=== PATIENT | male | born 1945 | race Caucasian/White ===

== ENCOUNTER 2017-10-22 00:05 | Inpatient (IN) | payer OTHER ==
--- OUTSIDE RECORDS SUMMARY | 2017-10-22 00:08 | XMS REPORT | Clinical Summary ---
:1945 Author Organization [facility] Address [address] [place] [address] Care Team Providers Name Role Phone Asked, No Pcp Primary Care Provider Unavailable Allergies No Known Allergies Current Medications Prescription Sig. Disp. Refills Start Date End Date Status aspirin (ECOTRIN) 81 MG Take 81 mg by mouth Active enteric coated tablet daily. budesonide EC (ENTOCORT Take 6 mg by mouth Active EC) 3 mg 24 hr capsule every morning. cyanocobalamin 1000 MCG Take 1,000 mcg by Active tablet mouth daily. ferrous gluconate Take 324 mg by mouth Active (FERGON) 324 MG tablet 2 (two) times a day. finasteride (PROSCAR) 5 Take 5 mg by mouth Active mg tablet daily. gabapentin (NEURONTIN) Take 100 mg by mouth Active 100 MG capsule 3 (three) times a day. insulin detemir Inject 50 Units under Active (LEVEMIR) 100 unit/mL the skin daily with injection breakfast. ipratropium (ATROVENT) Take 500 mcg by Active 0.02 % nebulizer nebulization 4 (four) solution times a day. isosorbide mononitrate Take 60 mg by mouth Active (IMDUR) 60 MG 24 hr daily. tablet losartan (COZAAR) 100 Take 100 mg by mouth Active MG tablet daily. metoprolol succinate XL Take 50 mg by mouth Active (TOPROL-XL) 50 MG 24 hr daily. tablet pantoprazole (PROTONIX) Take 40 mg by mouth Active 40 MG EC tablet daily. potassium chloride Take 40 mEq by mouth Active (KLOR-CON) 20 mEq 2 (two) times a day. packet sertraline (ZOLOFT) 100 Take 150 mg by mouth Active MG tablet daily. simvastatin (ZOCOR) 40 Take 40 mg by mouth Active MG tablet nightly. terazosin (HYTRIN) 1 MG Take 1 mg by mouth Active capsule nightly. Active Problems Problem Noted Date Cardiac arrhythmia 05/24/2016 Family History Medical History Relation Name Comments Diabetes Father Hypertension Father Relation Name Status Comments Father Social History Tobacco Use Types Packs/Day Years Used Date Former Smoker Alcohol Use Drinks/Week oz/Week Comments No Sex Assigned at Date Recorded Not on file Last Filed Vital Signs Not on file Plan of Treatment Not on file Results Not on fileafter 10/21/2016 Insurance Payer Benefit Plan / Group Subscriber ID Type Phone Address [facility] xxxxxxxxx O Home: [address] [place], [place] [phone] [address]
[2017-10-22 01:16] LABS: Absolute Lymphocytes (CBC) 0.7 K/uL (0.7-4.9); Absolute Monocytes 0.4 K/uL (0.1-1.3); Absolute Neutrophil 8.3 K/uL (1.8-8.0); Basophils % 0.4 % (0-1.3); Hematocrit 36.1 % (39.6-49.0); Lymphocytes % 7.3 % (15.3-44.8); MCH 30.7 pg (27.0-35.0); MCV 91.4 fL (80-100); MPV 8.6 fL (7.6-11.3); Monocytes % 4.2 % (3.3-12.3); RBC Red Blood Cell Count 3.95 M/uL (4.33-5.43)
[2017-10-22 01:30] LABS: Blood Morphology Comment NOT SEEN (NOT SEEN); Platelet Estimate ADEQ; Urine White Blood Cell Casts OK
[2017-10-22 01:33] LABS: Bicarbonate 28 mEq/L (21-31); Potassium 4.9 mEq/L (3.6-5.0); Sodium Level 133 mEq/L (135-145)
[2017-10-22 01:34] LABS: Protime INR 0.98
[2017-10-22 01:37] LABS: Glucose Level 448 mg/dL (65-120)
[2017-10-22 01:39] LABS: ALT/SGPT 18 IU/L (10-60); AST/SGOT 18 IU/L (10-42); Albumin 3.4 g/dL (3.2-5.5); Alkaline Phosphatase 110 IU/L (42-121); BUN Blood Urea Nitrogen 38 mg/dL (6-20); Bilirubin Direct < 0.1 mg/dL (0-0.2); Bilirubin Total 0.3 mg/dL (0.3-1.2); Creatine Phosphokinase 44 IU/L (22-269); Protein, Total 6.7 g/dL (6.0-8.3)
[2017-10-22] MEDS ORDERED: Magnesium Sulfate 2gm IVPB 2 G/50 ML BAG IV ONE (02:08)
[2017-10-22] MEDS ORDERED: NA CHLORIDE 0.9% 500 ML ONE (02:08)
[2017-10-22] MEDS ORDERED: ASPIRIN 81 MG CHEWABLE TABLET ONE (02:08)
[2017-10-22] MEDS ORDERED: LEVALBUTEROL 1.25 MG/3 ML NEB ONE (02:08)
[2017-10-22 05:01] LABS: CKMB Creatine Kinase MB 2.8 ng/ml (0.3-4.0)
--- NOTE | 2017-10-22 05:11 | EKG ---
Test Date: 2017-10-22 Test Time: 00:30:39 Psychiatric Assistant: PRAFUL MEASUREMENT RESULTS: Intervals: Rate: 70 AL: 166 QRSD: 100 QT: 432 QTc: 466 [place]: P: -11 AL: 166 QRS: 42 T: 53 INTERPRETIVE STATEMENTS: Normal sinus rhythm Normal ECG Compared to ECG 10/03/2017 06:59:55 No significant changes Electronically Signed On 10-22-17 05:10:39 CDT by Bertram Welch
--- NOTE | 2017-10-22 05:12 | ER ---
Nurse's Notes [facility] Name: Jethro Burden Age: 72 yrs Sex: Male : 1945 Arrival Date: 10/22/2017 Time: 00:09 Bed 15 Private MD: Diagnosis: Chest pain Presentation: 10/22 00:00 Presenting complaint: EMS states: that pt has shortness of breath and chest pressure fc that started at 2200 last night. He has had no Lasix x 10 days. Denies any nausea or vomiting. 00:11 Transition of care: patient was not received from another setting of care. Onset of fc symptoms was October 21, 2017. Care prior to arrival: Medication(s) given: Albuterol Neb x 1, Atrovent Neb x 1, Glucose check: 471. 00:11 Method Of Arrival: EMS: [facility] fc 00:11 Acuity: TAN 3 fc Historical: - Allergies: 00:15 No Known Allergies; fc - PMHx: 00:15 Atrial Fib; COPD; Crohn's; Diabetes - IDDM; Depression; Hyperlipidemia; prostate fc problems; Hypertension; CHF; - PSHx: 00:15 L toe amputation; Hernia repair; cardiac stents x3; Bowel resection; fc - Immunization history:: Adult Immunizations up to date. - Social history:: Smoking status: Patient/guardian denies using tobacco, the patient reports quitting approximately 14 years ago. Screenin:00 Abuse screen: Denies threats or abuse. Nutritional screening: No deficits noted. fc Tuberculosis screening: No symptoms or risk factors identified. Fall Risk Fall in past 12 months (25 points). Secondary diagnosis (15 points) impaired mobility, No IV (0 pts). Ambulatory Aid- Crutches/Cane/Walker (15 pts). Gait- Weak (10 pts.). Mental Status- Overestimates/Forgets Limitations (15 pts.). Total Strong Fall Scale indicates High Risk Score (45 or more points). Fall prevention measures have been instituted. Side Rails Up X 2 Placed Close to Nursing Station Frequent Obs/Assessments Occuring As available patient and family educated on Fall Prevention Program and Strategies. Assessment: 00:15 General: Appears in no apparent distress. comfortable, Behavior is calm, cooperative, aa1 appropriate for age. Pain: Complains of pain in back and chest Quality of pain is described as pressure, Is continuous. Neuro: Level of Consciousness is awake, alert, obeys commands, Oriented to person, place, time, situation, Moves all extremities. Full function Speech is normal. Cardiovascular: Reports chest pain, shortness of breath, Denies diaphoresis, nausea, palpitations, vomiting, Heart tones S1 S2 present Capillary refill < 3 seconds Clubbing of nail beds is absent JVD is absent Patient's skin is warm and dry. Rhythm is regular Chest pain is described as vague, quality is pressure, is located in anterior chest wall radiates back. Respiratory: Reports shortness of breath at rest Airway is patent Respiratory effort is even, unlabored, Respiratory pattern is regular, symmetrical, Breath sounds with crackles bilaterally. the patient has mild shortness of breath. GI: No signs and/or symptoms were reported involving the gastrointestinal system. : No signs and/or symptoms were reported regarding the genitourinary system. EENT: No signs and/or symptoms were reported regarding the EENT system. Derm: Skin is intact, is healthy with good turgor, Skin is pink, warm \T\ dry. Musculoskeletal: Circulation, motion, and sensation intact. Capillary refill < 3 seconds. 01:00 Reassessment: Patient appears in no apparent distress at this time. Patient and/or aa1 family updated on plan of care and expected duration. Pain level reassessed. Patient is alert, oriented x 3, equal unlabored respirations, skin warm/dry/pink. Awaiting lab results. 02:00 Reassessment: Patient appears in no apparent distress at this time. Patient and/or aa1 family updated on plan of care and expected duration. Pain level reassessed. Patient is alert, oriented x 3, equal unlabored respirations, skin warm/dry/pink. Awaiting admission orders. 03:00 Reassessment: Patient appears in no apparent distress at this time. Patient and/or aa1 family updated on plan of care and expected duration. Pain level reassessed. Patient is alert, oriented x 3, equal unlabored respirations, skin warm/dry/pink. Awaiting admission orders. 04:00 Reassessment: Patient appears in no apparent distress at this time. Patient and/or aa1 family updated on plan of care and expected duration. Pain level reassessed. Patient is alert, oriented x 3, equal unlabored respirations, skin warm/dry/pink. Awaiting bed assignment. 05:00 Reassessment: Patient appears in no apparent distress at this time. Patient and/or aa1 family updated on plan of care and expected duration. Pain level reassessed. Patient is alert, oriented x 3, equal unlabored respirations, skin warm/dry/pink. Awaiting bed assignment. 05:30 Reassessment: Bed assignment received but pt cannot go up until after shift change. aa1 05:58 Reassessment: Patient appears in no apparent distress at this time. Patient is alert, aa1 oriented x 3, equal unlabored respirations, skin warm/dry/pink. Per housekeeping/laundry, pt can go upstairs. Report given to Martha. Vital Signs: 00:00 BP 152 / 66; Pulse 76; Resp 22; Temp 97.2(TE); Pulse Ox 99% on R/A; Weight 105.23 kg fc (R); Height 6 ft. 0 in. (182.88 cm) (R); Pain 8/10; 01:10 BP 147 / 64; Pulse 71; Resp 20; Pulse Ox 98% on 2 lpm NC; aa1 02:00 BP 154 / 64; Pulse 68; Resp 20; Pulse Ox 99% on 2 lpm NC; Pain 0/10; aa1 03:00 BP 150 / 69; Pulse 73; Resp 20; Pulse Ox 98% on 2 lpm NC; aa1 04:00 BP 131 / 69; Pulse 72; Resp 18; Pulse Ox 96% on 2 lpm NC; aa1 05:00 BP 147 / 57; Pulse 76; Resp 20; Pulse Ox 97% on 2 lpm NC; aa1 00:00 Body Mass Index 31.46 (105.23 kg, 182.88 cm) ED Course: 00:00 Arm band placed on right wrist. Patient placed in an exam room, on a stretcher. fc 00:00 Patient has correct armband on for positive identification. Placed in gown. Bed in low fc position. Call light in reach. Side rails up X2. shelter monitor on. Pulse ox on. NIBP on. 00:09 Patient arrived in ED. em1 00:14 Triage completed. fc 00:24 Donald Moreira MD is Attending Physician. wa 00:38 Oxygen administration via nasal cannula \T\ 2L/min. aa1 00:40 EKG done, by ED staff. cb2 00:45 Initial lab(s) drawn, by me, sent to lab. First set of blood cultures drawn by me. aa1 Inserted saline lock: 20 gauge in left forearm, using aseptic technique. Blood collected. 01:00 X-ray completed. Portable x-ray completed in exam room. Patient tolerated procedure jw2 well. 01:04 Second set of blood cultures drawn by me. aa1 01:09 Cynthia Brown RN is Primary Nurse. aa1 01:37 Notified ED physician of a critical lab result(s). glucose of 448. fc 01:54 Shweta Sheppard MD is Hospitalizing Provider. wa 02:00 No provider procedures requiring assistance completed. Patient admitted, IV remains in aa1 place. Administered Medications: 01:56 Drug: Xopenex 1.25 mg Route: Inhalation; aa1 01:56 Drug: Magnesium Sulfate 2 grams Route: IVPB; Infused Over: 2 hrs; Site: left forearm; aa1 04:00 Follow up: IV Status: Completed infusion aa1 01:56 Drug: Aspirin Chewable Tablet 324 mg Route: PO; aa1 03:00 Follow up: Response: No adverse reaction aa1 01:56 Drug: NS 0.9% 500 ml Route: IV; Rate: bolus; Site: left forearm; aa1 02:30 Follow up: IV Status: Completed infusion aa1 Outcome: 01:55 Decision to Hospitalize by Provider. wa 05:59 Admitted to Tele accompanied by nurse, via wheelchair, room 419, with oxygen, with aa1 chart, Report called to RYLEE Thomas 05:59 Condition: stable 05:59 Instructed on the need for admit, Demonstrated understanding of instructions. 05:59 Patient left the ED. aa1 Signatures: Cynthia Brown, RN RN aa1 Mary Jorge RN RN fc Martinez, Eric em1 Maryan Silveira jw2 Aly Artis cb2 Donald Moreira MD MD vt Corrections: (The following items were deleted from the chart) 00:14 00:11 Presenting complaint: EMS states: that pt has shortness of breath and chest fc pressure that started at 2200 last night. He has had no Lasix x 10 days. Denies any nausea or vomiting. fc
--- NOTE | 2017-10-22 05:13 | EDPHYS ---
Physician Documentation [facility] Name: Jethro Burden Age: 72 yrs Sex: Male : 1945 Arrival Date: 10/22/2017 Time: 00:09 Bed 15 Private MD: ED Physician Donald Moreira Historical: - Allergies: 10/22 00:15 No Known Allergies; fc - PMHx: 00:15 Atrial Fib; COPD; Crohn's; Diabetes - IDDM; Depression; Hyperlipidemia; prostate fc problems; Hypertension; CHF; - PSHx: 00:15 L toe amputation; Hernia repair; cardiac stents x3; Bowel resection; fc - Immunization history:: Adult Immunizations up to date. - Social history:: Smoking status: Patient/guardian denies using tobacco, the patient reports quitting approximately 14 years ago. Vital Signs: 00:00 BP 152 / 66; Pulse 76; Resp 22; Temp 97.2(TE); Pulse Ox 99% on R/A; Weight 105.23 kg fc (R); Height 6 ft. 0 in. (182.88 cm) (R); Pain 8/10; 01:10 BP 147 / 64; Pulse 71; Resp 20; Pulse Ox 98% on 2 lpm NC; aa1 02:00 BP 154 / 64; Pulse 68; Resp 20; Pulse Ox 99% on 2 lpm NC; Pain 0/10; aa1 03:00 BP 150 / 69; Pulse 73; Resp 20; Pulse Ox 98% on 2 lpm NC; aa1 04:00 BP 131 / 69; Pulse 72; Resp 18; Pulse Ox 96% on 2 lpm NC; aa1 05:00 BP 147 / 57; Pulse 76; Resp 20; Pulse Ox 97% on 2 lpm NC; aa1 00:00 Body Mass Index 31.46 (105.23 kg, 182.88 cm) MDM: 00:24 Patient medically screened. 10/22 00:33 Order name: Basic Metabolic Panel 10/22 00:33 Order name: BNP 10/22 00:33 Order name: CBC with Diff 10/22 00:33 Order name: CPK 10/22 00:33 Order name: LFT's 10/22 00:33 Order name: Magnesium 10/22 00:33 Order name: PT-INR 10/22 00:33 Order name: Troponin (emerg Dept Use Only) la 10/22 00:39 Order name: Amylase, Serum 10/22 00:39 Order name: Blood Culture Adult (2) 10/22 00:39 Order name: BMP la 10/22 00:39 Order name: Ckmb la 10/22 00:39 Order name: D-Dimer 10/22 00:39 Order name: Lipase 10/22 00:39 Order name: Ptt, Activated la 10/22 01:18 Order name: CBC with Automated Diff; Complete Time: 01:39 EDMS 10/22 01:30 Order name: CBC Smear Scan; Complete Time: 01:39 EDMS 10/22 05:01 Order name: Urine Dipstick--Ancillary (enter results) em1 10/22 05:11 Order name: Basic Metabolic Panel; Complete Time: 16:08 EDMS 10/22 05:11 Order name: Liver (Hepatic) Function; Complete Time: 16:08 EDMS 10/22 05:11 Order name: Creatine Phosphokinase; Complete Time: 16:08 EDTX 10/22 05:11 Order name: Magnesium; Complete Time: 16:08 EDMS 10/22 05:11 Order name: BNP B-Type Natriuretic Peptide; Complete Time: 16:08 EDMS 10/22 05:11 Order name: Troponin (Emerg Dept Use Only); Complete Time: 16:08 EDMS 10/22 05:11 Order name: CKMB Creatine Kinase MB; Complete Time: 16:08 EDMS 10/22 05:11 Order name: Amylase Level; Complete Time: 16:08 EDTX 10/22 05:11 Order name: Lipase; Complete Time: 16:08 EDTX 10/22 05:11 Order name: Protime (+INR); Complete Time: 16:08 EDMS 10/22 05:11 Order name: PTT, Activated Partial Thromb; Complete Time: 16:08 EDMS 10/22 05:11 Order name: D-Dimer; Complete Time: 16:08 EDTX 10/22 00:33 Order name: XRAY Chest (1 view) la 10/22 00:33 Order name: EKG; Complete Time: 00:34 la 10/22 00:33 Order name: Cardiac monitoring; Complete Time: 01:10 la 10/22 00:33 Order name: EKG - Nurse/Tech; Complete Time: 01: la 10/22 00:33 Order name: IV Saline Lock; Complete Time: : la 10/22 00:33 Order name: Labs collected and sent; Complete Time: : la 10/22 00:33 Order name: O2 Per Protocol; Complete Time: : la 10/22 00:33 Order name: O2 Sat Monitoring; Complete Time: : la 10/22 00:33 Order name: Urine Dipstick-Ancillary (obtain specimen); Complete Time: 05:00 la Administered Medications: 01:56 Drug: Xopenex 1.25 mg Route: Inhalation; aa1 01:56 Drug: Magnesium Sulfate 2 grams Route: IVPB; Infused Over: 2 hrs; Site: left forearm; aa1 04:00 Follow up: IV Status: Completed infusion aa1 01:56 Drug: Aspirin Chewable Tablet 324 mg Route: PO; aa1 03:00 Follow up: Response: No adverse reaction aa1 01:56 Drug: NS 0.9% 500 ml Route: IV; Rate: bolus; Site: left forearm; aa1 02:30 Follow up: IV Status: Completed infusion aa1 Disposition: 10/22/17 01:55 Hospitalization ordered by Shweta Sheppard for Inpatient Admission. Preliminary diagnosis is Chest pain. - Bed requested for Telemetry/MedSurg (Inpatient). - Status is Inpatient Admission. aa1 - Condition is Stable. - Problem is an acute exacerbation. - Symptoms have improved. UTI on Admission? No Addendum: 11/03/2017 16:10 Addendum: CC: chest pain. SOB. HPI: 72 yo M. CP that began 1 day prior to arrival. w a states assoc SOB with minimal exertion. describes pain as tightness. denies radiation of pain. denies nausea, vomiting, or diaphoresis. states takes lasix but has not had it for 1 mth. EMS gave a dose of albuterol and atrovent in rout to ED. pt w/ h/o COPD and CHF. PMHx: afib. COPD. Crohn's. DM. Depression. HTN. CHF. Elevated Chol. PsurgHx: Hernia repair. toe amputation. cardiac stent x3. Bowel resection. SHx: quit smoking 14 years ago. denies ETOH. denies recreational drug use. Allergies: NKDA. ROS: noted for chest pain and SOB. all other systems reviewed and negative. Exam: Const: noted in mild distress HEENT: normocephalic. atraumatic. throat clear. neck supple. CVS: NS1S2. no murmurs. CHEST: bilateral expiratory wheezes. coarse BS bilaterally. Abd: non-tender. no distension. Ext: no edema. no swelling. Neuro: CN II-XII. no lateralizing neuro deficits. Psych: pleasant. affect normal. DDx: COPD flare. Pna. r/o ACS. CHF. Afib. Plan: monitor. oxygen. nebs. ASA. MgSO4. Results: EKG: no acute STEMI. labs noted for elevated glucose. elevated BUN/Cr. Dx: Chest pain. Shortness of Breath. Hyperglycemia. Discussed with pt. accepted admit. orders written by me. Improved significantly prior to moving upstairs. Signatures: Dispatcher [employer] Cynthia Addison RN RN aa1 Mary Jorge RN RN [facility] HospitalDonald malloy MD MD la
[2017-10-22] MEDS ORDERED: ONDANSETRON 4 MG/2 ML VIAL IV PRN ×2 (07:10→07:52)
[2017-10-22] MEDS ORDERED: ACETAMINOPHEN 500 MG TAB PO PRN ×2 (07:10→07:53)
[2017-10-22] MEDS ORDERED: D50W 25 GM/50 ML SYRINGE IV PRN ×2 (07:52→17:07)
[2017-10-22] MEDS ORDERED: GLUCAGON 1 MG/VIAL IM PRN ×2 (07:52→17:07)
[2017-10-22 08:09] LABS: Urine Blood NEGATIVE (NEG); Urine Glucose 2+ (NEG); Urine Protein NEGATIVE (NEG)
--- NOTE | 2017-10-22 08:50 | RAD REPORT ---
EXAM DESCRIPTION: RAD - Chest Single View - 10/22/2017 1:01 am CLINICAL HISTORY: Chest pain, chest pressure COMPARISON: October 02 TECHNIQUE: AP portable chest image was obtained 0055 hours . FINDINGS: No peripheral mass, consolidation or failure findings. Left costophrenic angle blunting sandoval s not changed. Heart and vasculature are normal. No pneumothorax. No new or enlarging pleural fluid c ollection. No gross bony abnormality seen. No acute aortic findings suspected. IMPRESSION: No acute cardiopulmonary process. Chest findings are stable from October 02.
[2017-10-22] MEDS ORDERED: ASPIRIN 81 MG CHEWABLE TABLET PO SCH (09:00)
[2017-10-22] MEDS ORDERED: ATORVASTATIN 80 MG TAB PO SCH (09:00)
[2017-10-22] MEDS ORDERED: ENOXAPARIN 40 MG/0.4 ML SQ SCH (09:00)
[2017-10-22] MEDS ORDERED: APIXABAN 5 MG TABLET PO SCH (09:00)
[2017-10-22] MEDS: INSULIN -REGULAR HUMAN 50 UNIT/0.5 ML ML SQ SCH ×4 (09:01→20:46)
[2017-10-22] MEDS: ASPIRIN 81 MG CHEWABLE TABLET PO SCH (09:03)
[2017-10-22] MEDS: APIXABAN 5 MG TABLET PO SCH ×2 (09:03→20:43)
[2017-10-22] MEDS ORDERED: INSULIN -REGULAR HUMAN 50 UNIT/0.5 ML ML SQ SCH (11:30)
--- NOTE | 2017-10-22 12:40 | CON ---
History Of Present Illness: Mr. Burden is a gentleman, who has had a lot of problems, never had coron jeronimo heart disease. He has underlying diabetes and he takes a variety of medications for that. None of those medications are listed as of now in his outpatient medicines. He came to the [facility] se he lost consciousness. He had been sitting on a couch for a long time. He had a grandson who lashonda yed with an oxygen concentrator which he requires all the time. He had to get up and adjust it, was not clear if he had to bend over and then stand up whilst doing it or if he was able to sit while doi ng it but as he stood up after adjusting it and walked back to his couch he fell. He was apparently unconscious for just a matter of a second or 2. When he came to the emergency room, he had a blood p ressure of 152/66, pulse 76. Mr. Burden has severe obstructive lung disease. He has paroxysmal atrial fibrillation. I believe he has not been on an anticoagulant in spite of his atrial fibrillation. I believe he still takes Betap gutierrez, although we do not know the dose. We need to work very hard and get his outpatient medications re-established. I suspect even though he is hypertensive right now he has orthostatic hypotension. So, we will check orthostatic vital signs. The only important time is to do it when he is back on hi s usual outpatient medications. At this point, he is not. His EKG shows that everything looks birdie l. I suspect we are not dealing with any arrhythmia but we are dealing with orthostatic hypotension. SH/MODL Voice ID: [id number] Report ID: [id number]
[2017-10-22 13:08] LABS: Urine Appearance CLEAR; Urine Bilirubin NEGATIVE (NEG); Urine Blood NEGATIVE (NEG); Urine Color YELLOW; Urine Glucose 3+ (NEG); Urine Protein NEGATIVE (NEG); Urine Urobilinogen 0.2 mg/dL (0.2-1.0)
[2017-10-22] MEDS: ALBUTEROL 2.5 MG/3 ML NEB SOL NEB PRN (13:25)
[2017-10-22 13:29] LABS: Urine Microscopic Reflex ORDER UMIC
[2017-10-22 13:43] LABS: Urine Bacteria NONE SEEN /HPF (NONE SEEN); Urine Culture Reflex Order NOT NEEDED; Urine RBC <5 /HPF (NONE SEEN)
[2017-10-22] MEDS ORDERED: DIFLUPREDNATE OPHTHALMIC 5 ML BOT OPTH SCH (17:15)
[2017-10-22] MEDS ORDERED: GENTAMICIN 0.3% OPTH DROP 5ML OPTH SCH (17:15)
[2017-10-22] MEDS: INSULIN DETEMIR 100 UNIT/1 ML INSULIN SQ SCH (18:06)
[2017-10-22] MEDS: METOPROLOL XL 50 MG TAB PO SCH (18:07)
[2017-10-22] MEDS: FINASTERIDE 5 MG TAB PO SCH (18:08)
[2017-10-22] MEDS: SERTRALINE HCL 100 MG TAB PO SCH (18:08)
[2017-10-22] MEDS: GABAPENTIN 100 MG CAP PO SCH ×2 (18:08→22:46)
[2017-10-22] MEDS: FERROUS SULFATE 325 MG TAB PO SCH (20:42)
[2017-10-22] MEDS: SOTALOL HCL 80 MG TAB PO SCH (20:42)
[2017-10-22] MEDS: ATORVASTATIN 40 MG TAB PO SCH (20:44)
[2017-10-22] MEDS: NEPAFENAC RIGHT EYE SCH (20:55)
[2017-10-22] MEDS ORDERED: SOTALOL HCL 120 MG PO SCH (21:00)
[2017-10-22] MEDS ORDERED: FERROUS GLUCONATE 324 MG PO SCH (21:00)
[2017-10-22] MEDS ORDERED: ATORVASTATIN 40 MG TAB PO SCH (21:00)
[2017-10-23] MEDS: IPRATROPIUM BROM 0.5MG/2.5ML NEB PRN ×4 (01:27→19:24)
[2017-10-23] MEDS: ALBUTEROL 2.5 MG/3 ML NEB SOL NEB PRN ×4 (01:27→19:23)
[2017-10-23 04:42] LABS: Potassium 4.4 mEq/L (3.6-5.0)
[2017-10-23 04:43] LABS: Absolute Lymphocytes (CBC) 1.8 K/uL (0.7-4.9); Absolute Monocytes 0.8 K/uL (0.1-1.3); Absolute Neutrophil 6.1 K/uL (1.8-8.0); Basophils % 0.5 % (0-1.3); Eosinophils % 1.6 % (0-4.4); Hematocrit 36.1 % (39.6-49.0); Lymphocytes % 20.7 % (15.3-44.8); MCH 31.2 pg (27.0-35.0); MCV 90.2 fL (80-100); MPV 8.6 fL (7.6-11.3); Monocytes % 8.7 % (3.3-12.3)
[2017-10-23] MEDS: INSULIN -REGULAR HUMAN 50 UNIT/0.5 ML ML SQ SCH ×4 (07:30→21:27)
[2017-10-23] MEDS ORDERED: HOME MED 1 EA UNK (Losartan Potassium [Losartan Potassium] 100 MG) PO SCH (09:00)
[2017-10-23] MEDS: APIXABAN 5 MG TABLET PO SCH ×2 (09:30→21:27)
[2017-10-23] MEDS: LOSARTAN POTASSIUM 50 MG TABLET PO SCH (09:30)
[2017-10-23] MEDS: PANTOPRAZOLE 40MG TABLET PO SCH (09:30)
[2017-10-23] MEDS: SOTALOL HCL 80 MG TAB PO SCH ×2 (09:30→21:28)
[2017-10-23] MEDS: INSULIN DETEMIR 100 UNIT/1 ML INSULIN SQ SCH ×2 (09:30→17:27)
[2017-10-23] MEDS: FERROUS SULFATE 325 MG TAB PO SCH ×2 (09:31→21:28)
[2017-10-23] MEDS: SERTRALINE HCL 100 MG TAB PO SCH (09:31)
[2017-10-23] MEDS: ASPIRIN 81 MG CHEWABLE TABLET PO SCH (09:31)
[2017-10-23] MEDS: GABAPENTIN 100 MG CAP PO SCH ×3 (09:31→21:28)
[2017-10-23] MEDS: METOPROLOL XL 50 MG TAB PO SCH (09:31)
[2017-10-23] MEDS: FINASTERIDE 5 MG TAB PO SCH (09:32)
--- NOTE | 2017-10-23 18:16 | HP ---
Date of Admission: 10/22/2017 Chief Complaint: Dizziness, near syncope. History Of Present Illness: This patient while trying to get up, had severe dizziness and almost pas sed out. However, there was no history of true loss of consciousness, seizures or fall, or head inju ry. The patient was brought to the emergency room and after evaluation, patient is admitted to [facility], later was transferred to my service. Past Medical History: The patient has multiple medical problems that includes severe diabetes requir ing insulin, hyperlipidemia, hypertension, history of congestive heart failure, COPD, chronic atrial fibrillation, on Eliquis and Betapace and metoprolol. Past Surgical History: Positive for coronary angioplasty, bowel resection, hernia repair, and amputa tion of the toe. Family History: Diabetes present. Personal History: Nonsmoker home. Medicines: Please refer to the chart. Review of Systems: The patient denies any history of fever, chills, rigors. Physical Examination: General: Revealed a 72-year-old male, fully alert at the time of exam. HEENT: No evidence of head injury. Neck: Supple. JVD negative. Chest: Scattered wheezes. Heart: Irregularity noted. Abdomen: Soft. No palpable mass. Extremities: Mild pedal edema. Laboratory Data: White count normal. Troponin normal. Chest x-ray, no evidence of pneumonia. EKG, sinus rhythm. Assessment: 1.Dizziness and near syncope. 2.Chronic obstructive pulmonary disease. 3.Type 2 diabetes requiring insulin. 4.Chronic intermittent atrial fibrillation on Eliquis and Betapace and metoprolol. 5.Hyperlipidemia. 6.Depression. Plan: The patient currently is stable and he is not having any chest pain or acute symptoms. Once c leared by Cardiology Service, he will be discharged and follow up in the office. ZAIRA/IVORY Voice ID: [id number]
[2017-10-23] MEDS: NEPAFENAC RIGHT EYE SCH (21:00)
[2017-10-23] MEDS: ATORVASTATIN 40 MG TAB PO SCH (21:27)
[2017-10-24] MEDS: ALBUTEROL 2.5 MG/3 ML NEB SOL NEB PRN ×2 (02:12→07:20)
[2017-10-24] MEDS: IPRATROPIUM BROM 0.5MG/2.5ML NEB PRN ×2 (02:12→07:20)
[2017-10-24 05:23] VITALS: BMI 32.3
[2017-10-24] MEDS: INSULIN -REGULAR HUMAN 50 UNIT/0.5 ML ML SQ SCH (08:14)
[2017-10-24] MEDS: METOPROLOL XL 50 MG TAB PO SCH (08:15)
[2017-10-24] MEDS: INSULIN DETEMIR 100 UNIT/1 ML INSULIN SQ SCH (08:15)
[2017-10-24] MEDS: GABAPENTIN 100 MG CAP PO SCH (08:16)
[2017-10-24] MEDS: LOSARTAN POTASSIUM 50 MG TABLET PO SCH (08:16)
[2017-10-24] MEDS: SOTALOL HCL 80 MG TAB PO SCH (08:16)
[2017-10-24] MEDS: APIXABAN 5 MG TABLET PO SCH (08:16)
[2017-10-24] MEDS: ASPIRIN 81 MG CHEWABLE TABLET PO SCH (08:17)
[2017-10-24] MEDS: PANTOPRAZOLE 40MG TABLET PO SCH (08:17)
[2017-10-24] MEDS: SERTRALINE HCL 100 MG TAB PO SCH (08:17)
[2017-10-24] MEDS: FINASTERIDE 5 MG TAB PO SCH (08:17)
[2017-10-24] MEDS: FERROUS SULFATE 325 MG TAB PO SCH (08:25)
[2017-10-24 08:26] VITALS: BP 145/66
[2017-10-24 08:28] VITALS: TEMP 97.2
[2017-10-24 10:00] VITALS: O2SAT 93
--- NOTE | 2017-11-20 02:00 | DS ---
Date of Discharge: 10/24/2017 Final Diagnoses: 1.Dizziness and near syncope. 2.Chronic obstructive pulmonary disease. 3.Type 2 diabetes requiring insulin. 4.Chronic intermittent atrial fibrillation. 5.Chronic anticoagulation. 6.Hyperlipidemia. 7.Depression. Hospital Course: This patient was brought to the emergency room as he nearly passed out in the [facility] [employer] lot. He was brought to the emergency room. After evaluation, he was admitted. There was no hist ory of head injury. The patient had no evidence of seizures. The patient after admission was put on observation telemetry. The patient was seen by Cardiology Service. Dr. Welch did not feel that th e patient had any acute cardiovascular event or neurological event. At this point, the patient was t olerating diet and ambulating in the room. At this point, the patient was discharged home to have fo llow up in the office. Laboratory Data: Please refer to the chart. ZAIRA/IVORY Voice ID: [id number] Report ID: [id number]
== END 2017-10-24 10:12 | disposition home or self-care (01) | DRG 149 ==
LOC: ER 00:05 → ERHOLD 02:01 → 4TH 05:42
PROVIDERS: ADMIT Internal Medicine; ATTEND Internal Medicine
DX: R42 Dizziness and giddiness (principal); R55 Syncope and collapse; E78.5 Hyperlipidemia, unspecified; I48.2 Chronic atrial fibrillation; F32.9 Major depressive disorder, single episode, unspecified; J44.9 Chronic obstructive pulmonary disease, unspecified; E11.9 Type 2 diabetes mellitus without complications; I10 Essential (primary) hypertension; Z79.01 Long term (current) use of anticoagulants
CPT/HCPCS: 36415; 71045; 80048; 80076; 81003; 81015; 82150; 82550; 82553; 82962; 83690; 83735; 83880; 84484; 85025; 85379; 85610; 85730; 87040; 87070; 87077; 87186; 87205; 93005; 94640; 96365; 96366; 99285; J3475

== ENCOUNTER 2017-12-02 20:14 | Emergency (ER) | payer OTHER ==
--- OUTSIDE RECORDS SUMMARY | 2017-12-02 20:16 | XMS REPORT | Clinical Summary ---
:1945 Author Organization [facility] [facility] Address [address] [place] [address] Care Team Providers Name Role Phone Asked, [...] Not on file Results Not on fileafter 12/01/2016 Insurance Payer Benefit Plan / Group Subscriber ID Type Phone Address [facility] xxxxxxxxx O Home: [address] [place], [place] [phone] [address]
[2017-12-02] MEDS ORDERED: IPRATROPIUM BROM 0.5MG/2.5ML ONE (20:55)
[2017-12-02] MEDS ORDERED: ALBUTEROL 2.5 MG/3 ML NEB SOL ONE (20:55)
[2017-12-02] MEDS ORDERED: METHYLPREDNISOLONE 125 MG INJ ONE (21:10)
--- NOTE | 2017-12-02 21:34 | RAD REPORT ---
EXAM DESCRIPTION: [place] Single View12/02/2017 9:15 pm CLINICAL HISTORY: Shortness of breath COMPARISON: September 2017 FINDINGS: The lungs appear clear of acute infiltrate. An opacity within left lung base represents e picardial fat. The heart is normal size IMPRESSION: No acute abnormalities displayed
[2017-12-02 21:35] LABS: Absolute Monocytes 0.8 K/uL (0.1-1.3); Absolute Neutrophil 6.2 K/uL (1.8-8.0); Basophils % 0.9 % (0-1.3); Eosinophils % 5.2 % (0-4.4); Hematocrit 35.5 % (39.6-49.0); MCH 31.2 pg (27.0-35.0); MCV 91.1 fL (80-100); MPV 8.9 fL (7.6-11.3); Monocytes % 9.6 % (3.3-12.3)
[2017-12-02 21:40] LABS: Arterial Blood Carboxyhemoglob 1.2 % (0-1.5); Blood Gas Oxyhemoglobin 94.7 % (94-97); Blood O2 Saturation 97.2 % (92-98.5)
[2017-12-02 21:51] LABS: Potassium 4.1 mEq/L (3.6-5.0)
[2017-12-02 21:54] LABS: Protime INR 1.04
[2017-12-02 21:57] LABS: Albumin 3.3 g/dL (3.2-5.5); Bilirubin Direct 0.1 mg/dL (0-0.2); Bilirubin Total 0.5 mg/dL (0.3-1.2); Magnesium 1.6 mg/dL (1.8-2.5); Protein, Total 6.9 g/dL (6.0-8.3)
[2017-12-02 22:00] LABS: CKMB Creatine Kinase MB 1.8 ng/ml (0.3-4.0)
[2017-12-02] MEDS ORDERED: MORPHINE 4 MG/ML SYR ONE (23:49)
[2017-12-02] MEDS ORDERED: ONDANSETRON 4 MG/2 ML VIAL ONE (23:50)
[2017-12-02] MEDS ORDERED: Magnesium Sulfate 2gm IVPB 2 G/50 ML BAG IV ONE (23:50)
[2017-12-03 03:07] LABS: Urine Blood NEGATIVE (NEG); Urine Glucose 2+ (NEG); Urine Protein NEGATIVE (NEG); Urine Specific Gravity 1.015 (1.005-1.030)
--- NOTE | 2017-12-03 03:17 | ER ---
Nurse's Notes [facility] Name: Jethro Burden Age: 72 yrs Sex: Male : 1945 Arrival Date: 12/02/2017 Time: 20:19 Bed 5 Private MD: Cordell Herrera R Diagnosis: COPD exacerbation. Abdominal and back pain Presentation: 12/02 20:40 Presenting complaint: Patient states: SOB and bilateral flank pain started today. ak1 Transition of care: patient was not received from another setting of care. Onset of symptoms was December 02, 2017. Initial Sepsis Screen: Does the patient meet any 2 criteria? No. Patient's initial sepsis screen is negative. Does the patient have a suspected source of infection? No. Patient's initial sepsis screen is negative. Note pt uses 3L NC at home. Care prior to arrival: None. 20:40 Method Of Arrival: Wheelchair ak1 20:40 Acuity: TAN 3 ak1 Triage Assessment: 20:42 General: Appears in no apparent distress. Behavior is calm, cooperative. Pain: ak1 Complains of pain in back. EENT: No signs and/or symptoms were reported regarding the EENT system. Neuro: No deficits noted. Cardiovascular: No deficits noted. Respiratory: Reports shortness of breath at rest cough that is non-productive, Onset: The symptoms/episode began/occurred today, the patient has mild shortness of breath. GI: No signs and/or symptoms were reported involving the gastrointestinal system. : No signs and/or symptoms were reported regarding the genitourinary system. Derm: No signs and/or symptoms reported regarding the dermatologic system. Musculoskeletal: No signs and/or symptoms reported regarding the musculoskeletal system. Historical: - Allergies: 20:40 No Known Allergies; ak1 - Home Meds: 21:33 albuterol sulfate 2.5 mg /3 mL (0.083 %) Nebulizer nebu 3 mL q4h prn [Active]; apixaban fc oral 5 mg oral 1 tab 2 times per day [Active]; atorvastatin 80 mg oral tab .5 tab once daily [Active]; budesonide-formoterol inhalation inhalation 2 puffs 2 times per day [Active]; budesonide 3 mg oral CECX 3 caps once daily [Active]; cyanocobalamin (vitamin B-12) 100 mcg oral tab daily [Active]; docusate sodium 100 mg Oral cap 1 cap 2 times per day [Active]; ferrous gluconate 324 mg (36 mg iron) Oral tab twice a day [Active]; finasteride 5 mg oral tab 1 tab once daily [Active]; furosemide 40 mg Oral tab 3 tabs in am and 2 tabs in pm [Active]; gabapentin 100 mg oral cap 1 caps 3 times per day [Active]; insulin aspart subcutaneous subcutaneous 50 unit before meals [Active]; insulin detemir subcutaneous subcutaneous 70 units in am and 45 units in pm [Active]; ipratropium bromide 0.02 % inhalation soln 2.5 mL every 6 hours [Active]; isosorbide mononitrate 20 mg Oral tab 4 tab daily [Active]; losartan 100 mg oral tab 1 tab once daily [Active]; metoprolol tartrate 50 mg Oral tab 1 tab once daily [Active]; pantoprazole 40 mg oral TbEC 1 tab once daily [Active]; potassium chloride 10 mEq Oral cpER 2 caps once daily [Active]; sertraline 100 mg oral tab 1 tab once daily [Active]; sotalol 120 mg Oral tab 1 tab 2 times per day [Active]; aspirin 81 mg Oral TbEC 1 tab once daily [Active]; magnesium oxide 420 mg Oral tab daily [Active]; - PMHx: 20:40 Atrial Fib; CHF; COPD; Crohn's; Depression; Diabetes - IDDM; Hyperlipidemia; ak1 Hypertension; prostate problems; - PSHx: 20:40 L toe amputation; Hernia repair; cardiac stents x3; Bowel resection; ak1 - Immunization history:: Adult Immunizations unknown. - Social history:: Smoking status: Patient/guardian denies using tobacco. Screenin:42 Abuse screen: Denies threats or abuse. Denies injuries from another. Nutritional ak1 screening: No deficits noted. Tuberculosis screening: No symptoms or risk factors identified. Fall Risk None identified. Assessment: 20:43 Respiratory: Airway is patent Respiratory effort is unlabored. ak1 20:43 Respiratory: Breath sounds with wheezes. ak1 20:56 General: Appears in no apparent distress. uncomfortable, obese, Behavior is calm, aj cooperative, appropriate for age. Pain: Complains of pain in mid back area. Neuro: Level of Consciousness is awake, alert, obeys commands, Oriented to person, place, time, situation, Appropriate for age. Cardiovascular: Denies chest pain, Rhythm is regular. Respiratory: Reports shortness of breath at rest Airway is patent Respiratory effort is even, unlabored, Respiratory pattern is tachypnea Breath sounds with wheezes bilaterally. the patient has moderate shortness of breath. GI: Abdomen is round. Derm: Skin is intact, is healthy with good turgor, Skin is pink, warm \T\ dry. normal. 23:25 Reassessment: Patient appears in no apparent distress at this time. No changes from ak1 previously documented assessment. Patient is alert, oriented x 3, equal unlabored respirations, skin warm/dry/pink. Patient states symptoms have improved. 23:58 Reassessment: Patient appears in no apparent distress at this time. No changes from ak1 previously documented assessment. pt drinking oral contrast. 12/03 00:00 Reassessment: pt finished oral contract, photo technician notified. ak1 Vital Signs: 12/02 20:40 BP 158 / 68; Pulse 92; Resp 20; Temp 98.2(TE); Pulse Ox 94% on 3 lpm NC; Weight 104.33 ak1 kg (R); Height 6 ft. 0 in. (182.88 cm) (R); Pain 8/10; 22:00 BP 162 / 69; Pulse 85; Resp 13; Pulse Ox 100% on R/A; aj 22:39 BP 173 / 79; Pulse 82; Resp 22; Pulse Ox 100% on 3 lpm NC; ak1 23:25 BP 166 / 75; Pulse 84; Resp 12; Temp 98.2; Pulse Ox 100% on 3 lpm NC; Pain 0/10; ak1 12/03 03:50 BP 161 / 75; Pulse 84; Resp 18; Temp 98.1; Pulse Ox 100% on 3 lpm NC; Pain 1/10; ak1 12/02 20:40 Body Mass Index 31.19 (104.33 kg, 182.88 cm) ak1 ED Course: 12/02 20:19 Patient arrived in ED. do 20:19 Cordell Herrera MD is Private Physician. do 20:40 Arm band placed on Patient placed in waiting room, Patient notified of wait time. ak1 20:41 Triage completed. ak1 20:42 Patient has correct armband on for positive identification. ak1 20:46 Teri Cheatham, RYLEE is Primary Nurse. aj 20:46 Mo Gambino MD is Attending Physician. pkl 21:15 XRAY Chest (1 view) In Process Unspecified. EDMS 21:42 Inserted saline lock: 22 gauge in right hand, using aseptic technique. Blood collected. aj 23:25 No provider procedures requiring assistance completed. ak1 12/03 01:36 Abdomen In Process Unspecified. EDMS 03:15 Cordell Herrera MD is Referral Physician. pkl 04:05 IV discontinued, intact, bleeding controlled, No redness/swelling at site. Pressure ak1 dressing applied. Administered Medications: 12/02 20:58 Drug: Albuterol - atroVENT (3:1) (2.5 mg - 0.5 mg) 3 ml Route: Nebulizer; aj 22:05 Follow up: Response: No adverse reaction ak1 21:35 Drug: SOLU-Medrol 125 mg Route: IVP; Site: right hand; aj 22:05 Follow up: Response: No adverse reaction ak1 23:57 Drug: Magnesium Sulfate 1 grams Route: IVPB; Infused Over: 1 hrs; Site: right hand; ak1 12/03 00:58 Follow up: IV Status: Completed infusion ak1 12/02 23:57 Drug: morphine 4 mg Route: IVP; Site: right hand; ak1 12/03 00:58 Follow up: Response: No adverse reaction ak1 12/02 23:57 Drug: Zofran 4 mg Route: IVP; Site: right hand; ak1 12/03 00:58 Follow up: Response: No adverse reaction ak1 03:32 Drug: DuoNeb (3:1) (2.5 mg - 0.5 mg) 3 ml Route: Nebulizer; ao 03:50 Follow up: Response: No adverse reaction ak1 03:32 Drug: morphine 4 mg Route: IVP; Site: right hand; ao 03:49 Follow up: Response: No adverse reaction ak1 Outcome: 03:16 Discharge ordered by . pkl 04:05 Discharged to home via wheelchair, with family. ak1 04:05 Condition: improved 04:05 Discharge instructions given to patient, family, Instructed on discharge instructions, follow up and referral plans. no drinking with medication, no driving heavy equipment, medication usage, Demonstrated understanding of instructions, follow-up care, medications, Prescriptions given X 1. 04:05 Patient left the ED. ak1 Signatures: Dispatcher [employer] EDTeri Phan, RN RN Mo Branch MD MD pkl Chretien, Felicia, RN RN fc Krenek, Amber, RN RN ak1 Pankaj Aly RN RN ao Ogletree, Danielle do
--- NOTE | 2017-12-03 03:17 | EDPHYS ---
Physician Documentation [facility] Name: Jethro Burden Age: 72 yrs Sex: Male : 1945 Arrival Date: 12/02/2017 Time: 20:19 Bed 5 Private MD: Cordell Herrera R ED Physician Mo Gambino HPI: 12/02 20:59 This 72 yrs old Male presents to ER via Wheelchair with complaints of pkl Breathing Difficulty, Flank Pain. 20:59 The patient has shortness of breath at rest. Onset: The symptoms/episode began/occurred pkl today. Associated signs and symptoms: Pertinent positives: productive cough, bilateral flank pain. Historical: - Allergies: 20:40 No Known Allergies; ak1 - Home Meds: 21:33 albuterol sulfate 2.5 mg /3 mL (0.083 %) Nebulizer nebu 3 mL q4h prn [Active]; apixaban fc oral 5 mg oral 1 tab 2 times per day [Active]; atorvastatin 80 mg oral tab .5 tab once daily [Active]; budesonide-formoterol inhalation inhalation 2 puffs 2 times per day [Active]; budesonide 3 mg oral CECX 3 caps once daily [Active]; cyanocobalamin (vitamin B-12) 100 mcg oral tab daily [Active]; docusate sodium 100 mg Oral cap 1 cap 2 times per day [Active]; ferrous gluconate 324 mg (36 mg iron) Oral tab twice a day [Active]; finasteride 5 mg oral tab 1 tab once daily [Active]; furosemide 40 mg Oral tab 3 tabs in am and 2 tabs in pm [Active]; gabapentin 100 mg oral cap 1 caps 3 times per day [Active]; insulin aspart subcutaneous subcutaneous 50 unit before meals [Active]; insulin detemir subcutaneous subcutaneous 70 units in am and 45 units in pm [Active]; ipratropium bromide 0.02 % inhalation soln 2.5 mL every 6 hours [Active]; isosorbide mononitrate 20 mg Oral tab 4 tab daily [Active]; losartan 100 mg oral tab 1 tab once daily [Active]; metoprolol tartrate 50 mg Oral tab 1 tab once daily [Active]; pantoprazole 40 mg oral TbEC 1 tab once daily [Active]; potassium chloride 10 mEq Oral cpER 2 caps once daily [Active]; sertraline 100 mg oral tab 1 tab once daily [Active]; sotalol 120 mg Oral tab 1 tab 2 times per day [Active]; aspirin 81 mg Oral TbEC 1 tab once daily [Active]; magnesium oxide 420 mg Oral tab daily [Active]; - PMHx: 20:40 Atrial Fib; CHF; COPD; Crohn's; Depression; Diabetes - IDDM; Hyperlipidemia; ak1 Hypertension; prostate problems; - PSHx: 20:40 L toe amputation; Hernia repair; cardiac stents x3; Bowel resection; ak1 - Immunization history:: Adult Immunizations unknown. - Social history:: Smoking status: Patient/guardian denies using tobacco. ROS: 20:59 Eyes: Negative for injury, pain, redness, and discharge, ENT: Negative for injury, pkl pain, and discharge, Neck: Negative for injury, pain, and swelling, Cardiovascular: Negative for chest pain, palpitations, and edema. 20:59 Respiratory: Positive for cough, with yellow sputum, shortness of breath, at rest. wheezing. 20:59 Abdomen/GI: Positive for constipation. 20:59 Back: Negative for pain at rest. 20:59 : Negative for urinary symptoms. 20:59 MS/extremity: Negative for acute changes. 20:59 Skin: Negative for rash. 20:59 Neuro: Negative for altered mental status. Exam: 20:59 Head/Face: Normocephalic, atraumatic. Eyes: Pupils equal round and reactive to light, pkl extra-ocular motions intact. Lids and lashes normal. Conjunctiva and sclera are non-icteric and not injected. Cornea within normal limits. Periorbital areas with no swelling, redness, or edema. ENT: Nares patent. No nasal discharge, no septal abnormalities noted. Tympanic membranes are normal and external auditory canals are clear. Oropharynx with no redness, swelling, or masses, exudates, or evidence of obstruction, uvula midline. Mucous membranes moist. Neck: Trachea midline, no thyromegaly or masses palpated, and no cervical lymphadenopathy. Supple, full range of motion without nuchal rigidity, or vertebral point tenderness. No Meningismus. Chest/axilla: Normal chest wall appearance and motion. Nontender with no deformity. No lesions are appreciated. Cardiovascular: Regular rate and rhythm with a normal S1 and S2. No gallops, murmurs, or rubs. Normal PMI, no JVD. No pulse deficits. 20:59 Respiratory: mild respiratory distress is noted, Respirations: labored breathing, that is mild, Breath sounds: bronchial sounds, that are mild, are scattered, rhonchi, that are mild, are scattered. 20:59 Abdomen/GI: Bowel sounds: normal, Palpation: abdomen is soft and non-tender, in all quadrants. 20:59 Back: Exam negative for acute changes. 20:59 : Exam negative for acute changes. 20:59 Musculoskeletal/extremity: Exam is negative for acute changes. 20:59 Skin: Exam negative for rash. 20:59 Neuro: Orientation: is normal, Mentation: is normal, Cranial nerves: grossly normal, Motor: is normal. Vital Signs: 20:40 BP 158 / 68; Pulse 92; Resp 20; Temp 98.2(TE); Pulse Ox 94% on 3 lpm NC; Weight 104.33 ak1 kg (R); Height 6 ft. 0 in. (182.88 cm) (R); Pain 8/10; 22:00 BP 162 / 69; Pulse 85; Resp 13; Pulse Ox 100% on R/A; aj 22:39 BP 173 / 79; Pulse 82; Resp 22; Pulse Ox 100% on 3 lpm NC; ak1 23:25 BP 166 / 75; Pulse 84; Resp 12; Temp 98.2; Pulse Ox 100% on 3 lpm NC; Pain 0/10; ak1 12/03 03:50 BP 161 / 75; Pulse 84; Resp 18; Temp 98.1; Pulse Ox 100% on 3 lpm NC; Pain 1/10; ak1 12/02 20:40 Body Mass Index 31.19 (104.33 kg, 182.88 cm) ak1 MDM: 12/02 20:46 Patient medically screened. pkl 12/03 03:14 Data reviewed: vital signs, nurses notes, lab test result(s), EKG, radiologic studies, pkl CT scan, plain films. 12/02 20:58 Order name: Basic Metabolic Panel; Complete Time: 23:41 pkl 12/02 20:58 Order name: BNP; Complete Time: 23:41 pkl 12/02 20:58 Order name: CBC with Diff; Complete Time: 21:48 pkl 05/05 20:58 Order name: Ckmb; Complete Time: 23:41 pkl 05 20:58 Order name: CPK; Complete Time: 23:41 pkl 0505 20:58 Order name: LFT's; Complete Time: 23:41 pkl 05 20:58 Order name: Magnesium; Complete Time: 23:41 pkl 05 20:58 Order name: PT-INR; Complete Time: 23:41 pkl 05 20:58 Order name: Ptt, Activated; Complete Time: 23:41 pkl 05 20:58 Order name: Troponin (emerg Dept Use Only); Complete Time: 23:41 pkl 12/02 20:58 Order name: Blood Culture Adult (2) pkl 12/02 20:58 Order name: Lactate; Complete Time: 23:41 pkl 05 20:58 Order name: Procalcitonin; Complete Time: 23:41 pkl 05 20:58 Order name: ABG; Complete Time: 21:48 pkl 05 20:58 Order name: XRAY Chest (1 view); Complete Time: 21:48 pkl 05 20:58 Order name: EKG; Complete Time: 20:59 pkl 12/02 20:58 Order name: Cardiac monitoring; Complete Time: 21:42 pkl 05 20:58 Order name: Amylase, Serum; Complete Time: 23:41 pkl 05 20:58 Order name: Lipase; Complete Time: 23:41 pkl 0505 23:46 Order name: Abdomen EDMS 12/03 02:23 Order name: Urine Dipstick--Ancillary (enter results); Complete Time: 03:17 em1 12/02 20:58 Order name: IV Saline Lock; Complete Time: 21:42 pkl 12/02 20:58 Order name: Labs collected and sent; Complete Time: 21:43 pkl 05 20:58 Order name: O2 Per Protocol; Complete Time: 21:43 pkl 12/02 20:58 Order name: O2 Sat Monitoring; Complete Time: 21:43 pkl 12/02 20:58 Order name: Urine Dipstick-Ancillary (obtain specimen); Complete Time: 03:51 pkl Administered Medications: 12/02 20:58 Drug: Albuterol - atroVENT (3:1) (2.5 mg - 0.5 mg) 3 ml Route: Nebulizer; aj 22:05 Follow up: Response: No adverse reaction ak1 21:35 Drug: SOLU-Medrol 125 mg Route: IVP; Site: right hand; aj 22:05 Follow up: Response: No adverse reaction ak1 23:57 Drug: Magnesium Sulfate 1 grams Route: IVPB; Infused Over: 1 hrs; Site: right hand; ak1 12/03 00:58 Follow up: IV Status: Completed infusion ak1 12/02 23:57 Drug: morphine 4 mg Route: IVP; Site: right hand; ak1 12/03 00:58 Follow up: Response: No adverse reaction ak1 12/02 23:57 Drug: Zofran 4 mg Route: IVP; Site: right hand; ak1 12/03 00:58 Follow up: Response: No adverse reaction ak1 03:32 Drug: DuoNeb (3:1) (2.5 mg - 0.5 mg) 3 ml Route: Nebulizer; ao 03:50 Follow up: Response: No adverse reaction ak1 03:32 Drug: morphine 4 mg Route: IVP; Site: right hand; ao 03:49 Follow up: Response: No adverse reaction ak1 Disposition: 12/03/17 03:16 Discharged to Home. Impression: COPD exacerbation. Abdominal and back pain. - Condition is Stable. - Prescriptions for Ultram 50 mg Oral Tablet - take 1 tablet by ORAL route every 8 hours As needed; 20 tablet. - Medication Reconciliation Form, Thank You Letter, Antibiotic Education, Prescription Opioid Use form. - Follow up: Cordell Herrera MD; When: 2 - 3 days; Reason: Re-evaluation by your physician. - Problem is new. - Symptoms have improved. Signatures: Dispatcher [employer] EDTeri Phan RN Mo Amaral MD MD pkl Chretien, Felicia, RN RN fc Krenek, Amber, RN RN ak1 Pankaj Aly RN RYLEE ao Corrections: (The following items were deleted from the chart) 12/02 23:46 23:43 Abdomen Pelvis W Con+CT.RAD.BRZ ordered. EDPR EDPR 12/03 04:05 03:16 12/03/2017 03:16 Discharged to Home. Impression: COPD exacerbation. Abdominal and ak1 back pain. Condition is Stable. Forms are Medication Reconciliation Form, Thank You Letter, Antibiotic Education, Prescription Opioid Use. Follow up: Cordell Herrera; When: 2 - 3 days; Reason: Re-evaluation by your physician. Problem is new. Symptoms have improved. pkl
[2017-12-03] MEDS ORDERED: IPRATROPIUM BROM 0.5MG/2.5ML ONE (03:25)
[2017-12-03] MEDS ORDERED: MORPHINE 4 MG/ML SYR ONE (03:25)
[2017-12-03] MEDS ORDERED: ALBUTEROL 2.5 MG/3 ML NEB SOL ONE (03:25)
[2017-12-03 04:13] VITALS: O2SAT 100
[2017-12-03 04:17] VITALS: BP 161/75; TEMP 98.1
--- NOTE | 2017-12-03 05:47 | EKG ---
Test Date: 2017-12-02 Test Time: 23:14:45 Pharmaceutical Sales Representative: SAVITA MEASUREMENT RESULTS: Intervals: Rate: 84 AL: 170 QRSD: 92 QT: 394 QTc: 465 [place]: P: -15 AL: 170 QRS: 58 T: 59 INTERPRETIVE STATEMENTS: Sinus rhythm with premature atrial complexes Otherwise normal ECG Compared to ECG 10/22/2017 00:30:39 Atrial premature complex(es) now present Electronically Signed On 12-03-17 05:46:53 CDT by Bertram Welch
--- NOTE | 2017-12-03 14:06 | RAD REPORT ---
EXAM DESCRIPTION: CT - Abdomen Pelvis Wo Contrast - 12/03/2017 6:37 am CLINICAL HISTORY: Abdominal pain. Bilateral flank pain. COMPARISON: 07/09/2016, 04/25/2015 TECHNIQUE: CT imaging of the abdomen and pelvis was performed without contrast. Solid organ, bowel a nd vascular assessment is limited due to lack of IV and oral contrast. All CT scans are performed using dose optimization technique as appropriate and may include automated exposure control or mA/KV adjustment according to patient size. FINDINGS: The lower lung wagner are clear. The liver, spleen, pancreas, adrenal glands and kidneys are within normal limits for a limited non-co ntrast examination.Benign left lower pole renal cysts, unchanged. No bowel obstruction, free air, free fluid or abscess. Appendectomy. The osseous structures are within normal limits. IMPRESSION: No acute intra-abdominal or pelvic findings. A limited non-contrast examination was performed as detailed.
== END 2017-12-03 04:05 | disposition home or self-care (01) ==
LOC: ER 20:14
DX: J44.1 Chronic obstructive pulmonary disease with (acute) exacerbation (principal); R10.9 Unspecified abdominal pain; M54.9 Dorsalgia, unspecified; I10 Essential (primary) hypertension; E11.9 Type 2 diabetes mellitus without complications; E78.5 Hyperlipidemia, unspecified; I48.91 Unspecified atrial fibrillation; F32.9 Major depressive disorder, single episode, unspecified; I50.9 Heart failure, unspecified; Z79.4 Long term (current) use of insulin; Z79.82 Long term (current) use of aspirin; Z95.818 Presence of other cardiac implants and grafts
CPT/HCPCS: 36415; 71045; 74176; 80048; 80076; 81003; 82150; 82550; 82553; 82805; 83605; 83690; 83735; 83880; 84145; 84484; 85025; 85610; 85730; 87040 ×2; 93005; 94640; 96365; 96375; 99284; J2405; J2930; J3475

== ENCOUNTER 2017-12-17 18:43 | Emergency (ER) | payer OTHER ==
--- OUTSIDE RECORDS SUMMARY | 2017-12-17 18:46 | XMS REPORT | Clinical Summary ---
:1945 Author Organization [facility] Address [address] [place] [address] Care Team Providers Name Role Phone Asked, [...] Not on file Results Not on fileafter 12/16/2016 Insurance Payer Benefit Plan / Group Subscriber ID Type Phone Address [facility] xxxxxxxxx O Home: [address] [place], [place] [phone] [id number]
[2017-12-17] MEDS ORDERED: METHYLPREDNISOLONE 125 MG INJ ONE (19:19)
[2017-12-17] MEDS ORDERED: IPRATROPIUM BROM 0.5MG/2.5ML ONE ×2 (19:19→21:08)
[2017-12-17] MEDS ORDERED: ASPIRIN 81 MG CHEWABLE TABLET ONE (19:19)
[2017-12-17] MEDS ORDERED: LEVALBUTEROL 1.25 MG/3 ML NEB ONE ×3 (19:20→19:22)
[2017-12-17 19:23] LABS: Absolute Lymphocytes (CBC) 1.3 K/uL (0.7-4.9); Absolute Monocytes 0.8 K/uL (0.1-1.3); Absolute Neutrophil 7.7 K/uL (1.8-8.0); Basophils % 1.2 % (0-1.3); Eosinophils % 4.5 % (0-4.4); Hematocrit 36.6 % (39.6-49.0); Lymphocytes % 12.5 % (15.3-44.8); MCH 30.2 pg (27.0-35.0); MPV 8.3 fL (7.6-11.3); Monocytes % 7.4 % (3.3-12.3); RBC Red Blood Cell Count 4.02 M/uL (4.33-5.43)
[2017-12-17 19:28] LABS: Protime INR 1.27
[2017-12-17 19:39] LABS: Albumin 3.4 g/dL (3.2-5.5); Bilirubin Direct 0.1 mg/dL (0-0.2); Bilirubin Total 0.6 mg/dL (0.3-1.2); Magnesium 1.9 mg/dL (1.8-2.5); Protein, Total 7.7 g/dL (6.0-8.3)
[2017-12-17 19:43] LABS: CKMB Creatine Kinase MB 1.5 ng/ml (0.3-4.0)
[2017-12-17] MEDS ORDERED: ALBUTEROL 2.5 MG/3 ML NEB SOL ONE (21:08)
[2017-12-17] MEDS ORDERED: Magnesium Sulfate 2gm IVPB 2 G/50 ML BAG IV ONE (21:08)
--- NOTE | 2017-12-17 21:58 | RAD REPORT ---
EXAM DESCRIPTION: [place] Single View12/17/2017 8:05 pm CLINICAL HISTORY: sob COMPARISON: December 02, 2017 FINDINGS: The lungs appear clear of acute infiltrate. The heart is normal size. Opacity overlying l eft base represents epicardial fat IMPRESSION: No acute abnormalities displayed
--- NOTE | 2017-12-17 23:14 | EDPHYS ---
Physician Documentation [facility] Name: Jethro Burden Age: 72 yrs Sex: Male : 1945 Arrival Date: 12/17/2017 Time: 18:45 Bed 27 Private MD: ED Physician Serge Guallpa HPI: 12/17 19:00 This 72 yrs old Male presents to ER via EMS with complaints of Shortness Of cp Breath. 19:00 The patient has shortness of breath at rest. cp 19:00 Onset: The symptoms/episode began/occurred 2 day(s) ago, and became worse today. cp Duration: The symptoms are continuous, and are steadily getting worse. Associated signs and symptoms: Pertinent positives: chest pain, non-productive cough, Pertinent negatives: diaphoresis, fever, hemoptysis. 19:00 Severity of symptoms: in the emergency department the symptoms are unchanged despite cp home interventions. The patient has experienced similar episodes in the past, multiple times. Historical: - Allergies: 18:46 No Known Allergies; la1 - PMHx: 18:46 Atrial Fib; CHF; COPD; Crohn's; Depression; Diabetes - IDDM; Hyperlipidemia; la1 Hypertension; prostate problems; - Immunization history:: Adult Immunizations up to date. - Social history:: Smoking status: Patient/guardian denies using tobacco. ROS: 19:03 Constitutional: Negative for body aches, chills, fever, poor PO intake. cp 19:03 Eyes: Negative for injury, pain, redness, and discharge. cp 19:03 ENT: Negative for drainage from ear(s), ear pain, sore throat, difficulty swallowing, difficulty handling secretions. 19:03 Cardiovascular: Positive for chest pain, Negative for edema, palpitations. 19:03 Respiratory: Positive for cough, with no reported sputum, shortness of breath, at rest. wheezing, Negative for pleurisy. 19:03 Abdomen/GI: Negative for abdominal pain, vomiting, diarrhea, constipation, black/tarry stool, rectal bleeding. 19:03 Back: Negative for pain at rest, pain with movement, radiated pain. 19:03 : Negative for urinary symptoms. 19:03 Skin: Negative for cellulitis, rash. 19:03 Neuro: Negative for altered mental status, dizziness, headache, numbness, syncope, near syncope, weakness. 19:03 All other systems are negative. Exam: 19:03 ECG was reviewed by the Attending Physician. cp 19:08 Constitutional: The patient appears in no acute distress, alert, awake, cp non-diaphoretic, non-toxic, well developed, well nourished, uncomfortable. 19:08 Head/Face: Normocephalic, atraumatic. cp 19:08 Eyes: Periorbital structures: appear normal, Pupils: equal, round, and reactive to light and accomodation, Extraocular movements: intact throughout, Conjunctiva: normal, no exudate, no injection, Sclera: no appreciated abnormality, Lids and lashes: appear normal, bilaterally. 19:08 ENT: External ear(s): are unremarkable, Ear canal(s): are normal, clear, TM's: bulging, is not appreciated, bilaterally, dullness, bilaterally, erythema, is not appreciated, bilaterally, Nose: is normal, Mouth: Lips: moist, Oral mucosa: pink and intact, moist, Posterior pharynx: is normal, airway is patent, no erythema, no exudate. 19:08 Neck: ROM/movement: is normal, is supple, without pain, no range of motions limitations, no meningismus, no nuchal rigidity, Lymph nodes: no appreciated lymphadenopathy. 19:08 Chest/axilla: Inspection: normal, Palpation: is normal, no crepitus, no tenderness. 19:08 Cardiovascular: Rate: normal, Rhythm: regular, Pulses: Pulses are 2+ in right radial artery and left radial artery. Edema: is not appreciated, JVD: is not appreciated. 19:08 Respiratory: the patient does not display signs of respiratory distress, Respirations: cp labored breathing, that is mild, intercostal retractions, are absent, tachypnea, is not appreciated, Breath sounds: decreased breath sounds, that are moderate, throughout, stridor, is not appreciated, wheezing: that is mild, is heard diffusely. 19:08 Abdomen/GI: Inspection: obese Bowel sounds: active, all quadrants, Palpation: abdomen is soft and non-tender, in all quadrants, rebound tenderness, is not appreciated, voluntary guarding, is not appreciated, involuntary guarding, is not appreciated. 19:08 Back: pain, is absent, ROM is normal. 19:08 Skin: cellulitis, is not appreciated, no rash present. cp 19:08 Neuro: Orientation: to person, place \T\ time. Mentation: lucid, able to follow commands, Cerebellar function: is grossly normal, Motor: moves all fours, strength is normal, Sensation: no obvious gross deficits. Vital Signs: 18:46 Weight 104.33 kg; Height 6 ft. 0 in. (182.88 cm) (R); la1 18:46 BP 124 / 75; Pulse 97; Resp 15; Temp 98.4(O); Pulse Ox 99% on 4 lpm NC; Weight 104.33 ed1 kg (R); Height 6 ft. 0 in. (182.88 cm) (R); Pain 8/10; 19:35 BP 138 / 73; Pulse 89; Resp 13; Pulse Ox 100% on R/A; Pain 8/10; ed1 20:40 BP 134 / 61; Pulse 87; Resp 12; Pulse Ox 98% on 3 lpm NC; Pain 6/10; ed1 21:13 BP 135 / 69; Pulse 83; Resp 16; Pulse Ox 100% on Nebulizer Mask; Pain 5/10; ed1 22:16 BP 136 / 70; Pulse 80; Resp 12; Pulse Ox 95% on 3 lpm NC; Pain 2/10; ed1 23:28 BP 137 / 87; Pulse 82; Resp 15; Temp 98.1(O); Pulse Ox 100% on R/A; Pain 0/10; ed1 18:46 Body Mass Index 31.19 (104.33 kg, 182.88 cm) la1 MDM: 18:49 Patient medically screened. cp 19:30 Differential diagnosis: CHF exacerbation, Chronic Obstructive Pulmonary Disease cp Myocardial Infarction pneumonia, pulmonary edema, Pulmonary Embolism Unstable Angina. 22:55 Data reviewed: vital signs, nurses notes, lab test result(s), EKG, radiologic studies, cp plain films. 22:55 Test interpretation: by ED physician or midlevel provider: ECG, plain radiologic cp studies. 23:10 ED course: VSS. Symptoms markedly improved. Will discharge to home for continued cp monitoring. 12/17 18:59 Order name: Basic Metabolic Panel; Complete Time: 19:55 cp 12/17 19:56 Interpretation: Normal except: NA 133; CL 93; CO2 32; GLUC 296; BUN 31; CRE 1.51; GFR cp 46. 12/17 18:59 Order name: BNP; Complete Time: 19:55 cp 05/20 18:59 Order name: CBC with Diff; Complete Time: 19:55 cp /20 19:56 Interpretation: Normal except: RBC 4.02; HGB 12.2; HCT 36.6; ROBSON% 74.4; LYM% 12.5; cp EOSINOPHIL % 4.5. 0520 18:59 Order name: Ckmb; Complete Time: 19:55 cp /20 18:59 Order name: CPK; Complete Time: 19:55 cp /20 18:59 Order name: LFT's; Complete Time: 19:55 cp /20 18:59 Order name: Magnesium; Complete Time: 19:55 cp /20 18:59 Order name: PT-INR; Complete Time: 19:55 cp / 18:59 Order name: Ptt, Activated; Complete Time: 19:55 cp /20 18:59 Order name: Troponin (emerg Dept Use Only); Complete Time: 19:55 cp /20 19:56 Interpretation: TROPED < 0.03; Reviewed. cp 12/17 18:59 Order name: XRAY Chest (1 view); Complete Time: 22:36 cp /20 22:36 Interpretation: Report review. cp 12/17 21:53 Order name: Troponin (emerg Dept Use Only); Complete Time: 22:47 cp /20 22:47 Interpretation: Reviewed. cp 12/17 18:59 Order name: EKG; Complete Time: 18:59 cp 12/17 18:59 Order name: Cardiac monitoring; Complete Time: 19:01 cp /20 18:59 Order name: EKG - Nurse/Tech; Complete Time: 19:01 cp /20 18:59 Order name: IV Saline Lock; Complete Time: 19:16 cp /20 18:59 Order name: Labs collected and sent; Complete Time: 19:16 cp /20 18:59 Order name: O2 Per Protocol; Complete Time: 19:01 cp /20 18:59 Order name: O2 Sat Monitoring; Complete Time: 19:01 cp /20 21:53 Order name: EKG - Nurse/Tech; Complete Time: 22:11 cp /20 21:53 Order name: EKG; Complete Time: 21:53 cp 12/17 21:53 Order name: Repeat Cardiac Enzymes at: 2200; Complete Time: 22:17 cp EC:03 Rate is 95 beats/min. Rhythm is regular. OK interval is normal. QRS interval is normal. cp QT interval is normal. No ST changes noted. Interpreted by me. Reviewed by me. Administered Medications: 19:26 Drug: Aspirin Chewable Tablet 324 mg Route: PO; ed1 21:15 Follow up: Response: No adverse reaction ed1 19:26 Drug: AtroVENT Aerosol 0.5 mg Route: Inhalation; ed1 19:26 Drug: Xopenex (3) 1.25 mg Route: Inhalation; ed1 19:28 Drug: SOLU-Medrol 125 mg Route: IVP; Site: right forearm; fc 21:15 Follow up: Response: No adverse reaction ed1 21:14 Drug: Magnesium Sulfate 2 grams Route: IVPB; Infused Over: 2 hrs; Site: right forearm; ed1 22:29 Follow up: Response: No adverse reaction; IV Status: Completed infusion ed1 21:15 Drug: Albuterol - atroVENT (3:1) (2.5 mg - 0.5 mg) 3 ml Route: Nebulizer; ed1 22:17 Follow up: Response: No adverse reaction; Marked relief of symptoms ed1 Disposition: 12/18 07:48 Co-signature as Attending Physician, Serge Guallpa MD I agree with the assessment and [facility] plan of care. Disposition: 12/17/17 23:13 Discharged to Home. Impression: Chronic obstructive pulmonary disease with (acute) exacerbation. - Condition is Stable. - Discharge Instructions: Chronic Obstructive Pulmonary Disease. - Prescriptions for Albuterol Sulfate 2.5 mg /3 mL (0.083 %) Inhalation Solution for Nebulization - inhale 1 unit by NEBULIZATION route every 8 hours As needed; 1 box. Prednisone 20 mg Oral Tablet - take 2 tablet by ORAL route once daily for 5 days; 10 tablet. - Medication Reconciliation Form, Thank You Letter, Antibiotic Education, Prescription Opioid Use form. - Follow up: Private Physician; When: Tomorrow; Reason: Recheck today's complaints. - Problem is an acute exacerbation. - Symptoms have improved. Signatures: Dispatcher [employer] Serge Mata MD MD cha Chretien, Felicia, RN RN Erica Parkinson LVN TURN SEWER ed1 Attema, Oc, RN RN la1 Serge Girard PA PA cp Corrections: (The following items were deleted from the chart) 12/17 23:30 23:13 12/17/2017 23:13 Discharged to Home. Impression: Chronic obstructive pulmonary ed1 disease with (acute) exacerbation. Condition is Stable. Forms are Medication Reconciliation Form, Thank You Letter, Antibiotic Education, Prescription Opioid Use. Follow up: Private Physician; When: Tomorrow; Reason: Recheck today's complaints. Problem is an acute exacerbation. Symptoms have improved. cp
--- NOTE | 2017-12-17 23:14 | ER ---
Nurse's Notes [facility] Name: Jethro Burden Age: 72 yrs Sex: Male : 1945 Arrival Date: 12/17/2017 Time: 18:45 Bed 27 Private MD: Diagnosis: Chronic obstructive pulmonary disease with (acute) exacerbation Presentation: 12/17 18:45 Presenting complaint: Patient states: SOB for 2 days, worse today. Transition of care: la1 patient was not received from another setting of care. Onset of symptoms was December 17, 2017. Initial Sepsis Screen: Does the patient meet any 2 criteria? No. Patient's initial sepsis screen is negative. Does the patient have a suspected source of infection? No. Patient's initial sepsis screen is negative. Care prior to arrival: None. 18:45 Method Of Arrival: EMS: [facility] la1 18:45 Acuity: TAN 3 la1 Historical: - Allergies: 18:46 No Known Allergies; la1 - PMHx: 18:46 Atrial Fib; CHF; COPD; Crohn's; Depression; Diabetes - IDDM; Hyperlipidemia; la1 Hypertension; prostate problems; - Immunization history:: Adult Immunizations up to date. - Social history:: Smoking status: Patient/guardian denies using tobacco. Screenin:11 Abuse screen: Denies threats or abuse. Denies injuries from another. Nutritional ed1 screening: No deficits noted. Tuberculosis screening: No symptoms or risk factors identified. Fall Risk No fall in past 12 months (0 pts). No secondary diagnosis (0 pts). IV access (20 points). Ambulatory Aid- None/Bed Rest/Nurse Assist (0 pts). Gait- Normal/Bed Rest/Wheelchair (0 pts) Mental Status- Oriented to own ability (0 pts). Total Strong Fall Scale indicates No Risk (0-24 pts). Assessment: 19:11 General: Appears uncomfortable, Behavior is calm, cooperative. Pain: Complains of pain ed1 in chest Pain does not radiate. Pain currently is 8 out of 10 on a pain scale. Quality of pain is described as aching, Pain began 2-3 days ago. Is continuous. Neuro: Level of Consciousness is awake, alert, obeys commands, Oriented to person, place, time, situation. Cardiovascular: Reports chest pain, shortness of breath, Denies diaphoresis, lightheadedness, nausea, palpitations, Heart tones S1 S2 present Rhythm is sinus rhythm. Respiratory: Reports shortness of breath at rest Airway is patent Respiratory effort is labored, Respiratory pattern is regular, symmetrical, Breath sounds are diminished bilaterally. Onset: The symptoms/episode began/occurred gradually, the patient has moderate shortness of breath. GI: No signs and/or symptoms were reported involving the gastrointestinal system. : No signs and/or symptoms were reported regarding the genitourinary system. EENT: No signs and/or symptoms were reported regarding the EENT system. Derm: Skin is intact, is thin, Skin is dry, Skin is normal, Skin temperature is warm. Musculoskeletal: Circulation, motion, and sensation intact. 19:25 Reassessment: I agree with above assessment. fc 19:35 Reassessment: Patient appears in no apparent distress at this time. No changes from ed1 previously documented assessment. Patient and/or family updated on plan of care and expected duration. Pain level reassessed. Patient is alert, oriented x 3, equal unlabored respirations, skin warm/dry/pink. Patient states symptoms have not improved. 20:40 Reassessment: Patient appears in no apparent distress at this time. No changes from ed1 previously documented assessment. Patient and/or family updated on plan of care and expected duration. Pain level reassessed. Patient is alert, oriented x 3, equal unlabored respirations, skin warm/dry/pink. 21:13 Reassessment: Patient appears in no apparent distress at this time. No changes from ed1 previously documented assessment. Patient and/or family updated on plan of care and expected duration. Pain level reassessed. Patient is alert, oriented x 3, equal unlabored respirations, skin warm/dry/pink. Patient states symptoms have not improved. 22:16 Reassessment: Patient appears in no apparent distress at this time. Patient and/or ed1 family updated on plan of care and expected duration. Pain level reassessed. Patient is alert, oriented x 3, equal unlabored respirations, skin warm/dry/pink. Patient states feeling better. Patient states symptoms have improved. 23:28 Reassessment: Patient appears in no apparent distress at this time. Patient and/or ed1 family updated on plan of care and expected duration. Pain level reassessed. Patient is alert, oriented x 3, equal unlabored respirations, skin warm/dry/pink. Patient denies pain at this time. Patient states feeling better. Patient states symptoms have improved. Vital Signs: 18:46 Weight 104.33 kg; Height 6 ft. 0 in. (182.88 cm) (R); la1 18:46 BP 124 / 75; Pulse 97; Resp 15; Temp 98.4(O); Pulse Ox 99% on 4 lpm NC; Weight 104.33 ed1 kg (R); Height 6 ft. 0 in. (182.88 cm) (R); Pain 8/10; 19:35 BP 138 / 73; Pulse 89; Resp 13; Pulse Ox 100% on R/A; Pain 8/10; ed1 20:40 BP 134 / 61; Pulse 87; Resp 12; Pulse Ox 98% on 3 lpm NC; Pain 6/10; ed1 21:13 BP 135 / 69; Pulse 83; Resp 16; Pulse Ox 100% on Nebulizer Mask; Pain 5/10; ed1 22:16 BP 136 / 70; Pulse 80; Resp 12; Pulse Ox 95% on 3 lpm NC; Pain 2/10; ed1 23:28 BP 137 / 87; Pulse 82; Resp 15; Temp 98.1(O); Pulse Ox 100% on R/A; Pain 0/10; ed1 18:46 Body Mass Index 31.19 (104.33 kg, 182.88 cm) la1 ED Course: 18:45 Patient arrived in ED. la1 18:45 Triage completed. la1 18:46 Erica Garg LVN is Primary Nurse. ed1 18:46 Arm band placed on left wrist. la1 18:49 Serge Girard PA is PHCP. cp 18:49 Serge Guallpa MD is Attending Physician. cp 19:00 EKG done, by ED staff, reviewed by Serge REICH. dh3 19:11 Patient has correct armband on for positive identification. Bed in low position. Call ed1 light in reach. Side rails up X2. Adult w/ patient. stamp pad maker on. Pulse ox on. NIBP on. 19:11 Initial lab(s) drawn, by me, sent to lab. Inserted saline lock: 22 gauge in right ed1 forearm, using aseptic technique. Blood collected. 19:37 X-ray completed. Portable x-ray completed in exam room. Patient tolerated procedure jw2 well. 19:39 XRAY Chest (1 view) In Process Unspecified. EDMS 22:16 Repeat lab(s) drawn. by me, sent to lab. ed1 22:20 EKG done, by ED staff, reviewed by Serge REICH. 3 23:28 No provider procedures requiring assistance completed. ed1 23:28 IV discontinued, intact, bleeding controlled, No redness/swelling at site. Pressure ed1 dressing applied. Administered Medications: 19:26 Drug: Aspirin Chewable Tablet 324 mg Route: PO; ed1 21:15 Follow up: Response: No adverse reaction ed1 19:26 Drug: AtroVENT Aerosol 0.5 mg Route: Inhalation; ed1 19:26 Drug: Xopenex (3) 1.25 mg Route: Inhalation; ed1 19:28 Drug: SOLU-Medrol 125 mg Route: IVP; Site: right forearm; 21:15 Follow up: Response: No adverse reaction ed1 21:14 Drug: Magnesium Sulfate 2 grams Route: IVPB; Infused Over: 2 hrs; Site: right forearm; ed1 22:29 Follow up: Response: No adverse reaction; IV Status: Completed infusion ed1 21:15 Drug: Albuterol - atroVENT (3:1) (2.5 mg - 0.5 mg) 3 ml Route: Nebulizer; ed1 22:17 Follow up: Response: No adverse reaction; Marked relief of symptoms ed1 Outcome: 23:13 Discharge ordered by . gianluca 23:30 Discharged to home via wheelchair, with family. ed1 23:30 Condition: good 23:30 Discharge instructions given to patient, family, Instructed on discharge instructions, follow up and referral plans. medication usage, Demonstrated understanding of instructions, follow-up care, medications, Prescriptions given X 2. 23:30 Patient left the ED. ed1 Signatures: Dispatcher [employer] EDMS Mary Jorge RN Erica Almaraz LVN LVN ed1 Oc Bowden RN RN laSerge Weaver PA PA cp Wailes, Jenni jw2 Thu Jones 3 Corrections: (The following items were deleted from the chart) 23:29 23:28 Patient did not have IV access during this emergency room visit. ed1 ed1
[2017-12-17 23:55] VITALS: BP 137/87; TEMP 98.1; O2SAT 100
--- NOTE | 2017-12-18 07:59 | EKG ---
Test Date: 2017-12-17 Test Time: 22:19:22 [place]: [place] MEASUREMENT RESULTS: Intervals: Rate: 81 KS: 180 QRSD: 92 QT: 420 QTc: 487 K[place]le: P: KS: 180 QRS: 78 T: 65 INTERPRETIVE STATEMENTS: Normal sinus rhythm Prolonged QT Abnormal ECG Compared to ECG 12/17/2017 18:55:56 Prolonged QT interval now present Electronically Signed On 12-18-17 07:58:34 CDT by Bertram Welch
--- NOTE | 2017-12-18 08:00 | EKG ---
Test Date: 2017-12-17 Test Time: 18:55:56 Dinkey Brakeman: [place] MEASUREMENT RESULTS: Intervals: Rate: 95 ND: 162 QRSD: 88 QT: 376 QTc: 472 [place]: P: ND: 162 QRS: 84 T: 63 INTERPRETIVE STATEMENTS: Normal sinus rhythm Normal ECG Compared to ECG 12/02/2017 23:14:45 Atrial premature complex(es) no longer present Electronically Signed On 12-18-17 07:59:26 CDT by Bertram Welch
== END 2017-12-17 23:30 | disposition home or self-care (01) ==
LOC: ER 18:43
DX: J44.1 Chronic obstructive pulmonary disease with (acute) exacerbation (principal); I10 Essential (primary) hypertension; I50.9 Heart failure, unspecified
CPT/HCPCS: 36415; 71045; 80048; 80076; 82550; 82553; 83735; 83880; 84484 ×2; 85025; 85610; 85730; 93005 ×2; 94640; 96365; 96375; 99285; J2930; J3475

== ENCOUNTER 2018-01-11 21:44 | Emergency (ER) | payer OTHER ==
--- OUTSIDE RECORDS SUMMARY | 2018-01-11 21:47 | XMS REPORT | Clinical Summary ---
:1945 Author Organization [facility] Address [address] [place] [address] Care Team Providers Name Role Phone Asked, [...] Not on file Results Not on fileafter 01/10/2017 Insurance Payer Benefit Plan / Group Subscriber ID Type Phone Address [facility] [place], [place] xxxxxxxxx O Home: [address] [place], [place] [phone] [id number]
[2018-01-11] MEDS ORDERED: ALBUTEROL 2.5 MG/3 ML NEB SOL ONE (22:12)
[2018-01-11] MEDS ORDERED: IPRATROPIUM BROM 0.5MG/2.5ML ONE (22:12)
[2018-01-11] MEDS ORDERED: METHYLPREDNISOLONE 125 MG INJ ONE (22:19)
[2018-01-11] MEDS ORDERED: FUROSEMIDE 40 MG/4 ML VIAL ONE (22:19)
[2018-01-11 22:41] LABS: Absolute Lymphocytes (CBC) 0.9 K/uL (0.7-4.9); Absolute Monocytes 0.5 K/uL (0.1-1.3); Absolute Neutrophil 8.6 K/uL (1.8-8.0); Basophils % 0.5 % (0-1.3); Eosinophils % 1.5 % (0-4.4); Hematocrit 33.5 % (39.6-49.0); Lymphocytes % 8.9 % (15.3-44.8); MCH 30.8 pg (27.0-35.0); MCV 89.1 fL (80-100); MPV 8.6 fL (7.6-11.3); Monocytes % 5.1 % (3.3-12.3); RBC Red Blood Cell Count 3.75 M/uL (4.33-5.43)
[2018-01-11 22:43] LABS: Protime INR 1.39
[2018-01-11 22:53] LABS: Potassium 3.6 mEq/L (3.6-5.0)
[2018-01-11 22:59] LABS: Albumin 3.3 g/dL (3.2-5.5); Bilirubin Direct 0.1 mg/dL (0-0.2); Bilirubin Total 0.3 mg/dL (0.3-1.2)
[2018-01-12] MEDS ORDERED: Magnesium Sulfate 2gm IVPB 2 G/50 ML BAG IV ONE (00:21)
--- NOTE | 2018-01-12 01:09 | ER ---
Nurse's Notes [facility] Name: Jethro Burden Age: 72 yrs Sex: Male : 1945 Arrival Date: 01/11/2018 Time: 21:46 Bed 27 Private MD: Cordell Herrera R Diagnosis: Shortness of breath;Chronic obstructive pulmonary disease with acute lower respiratory infection Presentation: 01/11 21:47 Presenting complaint: EMS states: shortness of breath and wheezing, for the last couple tl3 of days steadily getting worse. Transition of care: patient was not received from another setting of care. Onset of symptoms was January 09, 2018. Risk Assessment: Do you want to hurt yourself or someone else? Patient reports no desire to harm self or others. Initial Sepsis Screen: Does the patient meet any 2 criteria? No. Patient's initial sepsis screen is negative. Does the patient have a suspected source of infection? No. Patient's initial sepsis screen is negative. Care prior to arrival: IV initiated. 20 GA, in the right wrist. 21:47 Method Of Arrival: EMS: [facility] tl3 21:47 Acuity: TAN 3 tl3 Triage Assessment: 21:58 General: Appears distressed, uncomfortable, obese, well groomed, well developed, well tl3 nourished, Behavior is calm, cooperative, appropriate for age. EENT: No signs and/or symptoms were reported regarding the EENT system. Neuro: Level of Consciousness is awake, alert, obeys commands, Oriented to person, place, time, situation, Appropriate for age. Cardiovascular: Heart tones S1 S2 present Patient's skin is warm and dry. Respiratory: Reports shortness of breath cough that is productive, Airway is patent Respiratory effort is even, Respiratory pattern is regular, symmetrical, Breath sounds with wheezes bilaterally. in left upper lobe, left lower lobe, left posterior upper lobe and left posterior lower lobe Onset: The symptoms/episode began/occurred gradually, the patient has severe shortness of breath. Respiratory: Reports out of Lasix and Gabapentin since Monday. GI: No signs and/or symptoms were reported involving the gastrointestinal system. : No signs and/or symptoms were reported regarding the genitourinary system. Derm: No signs and/or symptoms reported regarding the dermatologic system. Musculoskeletal: No signs and/or symptoms reported regarding the musculoskeletal system. Historical: - Allergies: 21:57 No Known Drug Allergies; tl3 - Home Meds: 21:57 Albuterol Nebulizer [Active]; apixaban 5 mg Oral 1 tab 2 times per day [Active]; tl3 atorvastatin 80 mg Oral tab 0.5 tab once daily [Active]; budesonide 3 mg Oral CECX 3 caps once daily [Active]; budesonide-formoterol inhalation 2 puffs 2 times per day [Active]; docusate sodium 100 mg Oral cap 1 cap 2 times per day [Active]; ferrous gluconate 324 mg (36 mg iron) Oral tab twice a day [Active]; finasteride 5 mg Oral tab 1 tab once daily [Active]; insulin aspart subcutaneous 35 unit before meals [Active]; insulin detemir subcutaneous 70 units in am and 45 units in pm [Active]; isosorbide mononitrate 20 mg Oral tab 4 tab daily [Active]; losartan 100 mg Oral tab 1 tab once daily [Active]; metoprolol tartrate 50 mg Oral tab 1 tab once daily [Active]; pantoprazole 40 mg Oral TbEC 1 tab once daily [Active]; potassium chloride 10 mEq Oral cpER 2 caps once daily [Active]; sertraline 100 mg Oral tab 1 tab once daily [Active]; sotalol 120 mg Oral tab 1 tab 2 times per day [Active]; aspirin 81 mg Oral TbEC 1 tab once daily [Active]; magnesium oxide 420 mg Oral tab daily [Active]; albuterol sulfate 2.5 mg /3 mL (0.083 %) Inhl nebu 3 mL Q4H prn [Active]; potassium chloride 10 mEq Oral cpER 2 caps once daily [Active]; ipratropium bromide 0.02 % inhalation soln 2.5 mL every 6 hours [Active]; - PMHx: 21:58 Atrial Fib; CHF; COPD; Crohn's; Depression; Diabetes - IDDM; Hyperlipidemia; tl3 Hypertension; prostate problems; - Immunization history:: Adult Immunizations up to date. - Social history:: Smoking status: Patient/guardian denies using tobacco, the patient reports quitting approximately 14 years ago. - Ebola Screening: : Patient denies travel to an Ebola-affected area in the 21 days before illness onset. Screenin:03 Abuse screen: Denies threats or abuse. Nutritional screening: No deficits noted. tl3 Tuberculosis screening: No symptoms or risk factors identified. Fall Risk None identified. Assessment: 22:03 Reassessment: No changes from previously documented assessment. Pain: Denies pain. tl3 Neuro: Level of Consciousness is awake, alert, obeys commands, Oriented to person, place, time, situation, Appropriate for age. Cardiovascular: Heart tones S1 S2 present Patient's skin is warm and dry. Rhythm is regular. Respiratory: Airway is patent Respiratory effort is even, unlabored, Respiratory pattern is regular, symmetrical, Breath sounds with wheezes in left upper lobe, left lower lobe, left posterior upper lobe and left posterior lower lobe. GI: No signs and/or symptoms were reported involving the gastrointestinal system. : No signs and/or symptoms were reported regarding the genitourinary system. EENT: No signs and/or symptoms were reported regarding the EENT system. Derm: No signs and/or symptoms reported regarding the dermatologic system. Musculoskeletal: No signs and/or symptoms reported regarding the musculoskeletal system. 23:34 Reassessment: Patient appears in no apparent distress at this time. Patient and/or tl3 family updated on plan of care and expected duration. Pain level reassessed. Patient is alert, oriented x 3, equal unlabored respirations, skin warm/dry/pink. pt breathing easier, at bedside. 01/12 00:24 Reassessment: Patient appears in no apparent distress at this time. No changes from tl3 previously documented assessment. Patient and/or family updated on plan of care and expected duration. Pain level reassessed. Patient is alert, oriented x 3, equal unlabored respirations, skin warm/dry/pink. Respiratory: Breath sounds are coarse bilaterally. Breath sounds with rhonchi in left upper lobe, left lower lobe, left posterior upper lobe and left posterior lower lobe Breath sounds with wheezes in right middle lobe. Vital Signs: 01/11 21:58 BP 112 / 57; Pulse 73; Resp 20; Pulse Ox 99% on 3 lpm NC; tl3 23:34 BP 149 / 66; Pulse 74; Resp 18; Pulse Ox 100% on 3 lpm NC; tl3 01/12 00:24 BP 146 / 64; Pulse 75; Resp 20; Pulse Ox 98% ; tl3 ED Course: 01/11 21:46 Patient arrived in ED. tl3 21:47 Coredll Herrera MD is Private Physician. tl3 21:49 Triage completed. tl3 21:54 Serge Girard PA is PHCP. cp 21:54 Serge Guallpa MD is Attending Physician. cp 21:58 Arm band placed on right wrist. tl3 22:03 Patient has correct armband on for positive identification. Bed in low position. Call tl3 light in reach. Side rails up X 1. Pulse ox on. NIBP on. 22:03 No provider procedures requiring assistance completed. Maintain EMS IV. Dressing tl3 intact. Good blood return noted. Site clean \T\ dry. Gauge \T\ site: 20g right wrist. 22:12 Tiana Arredondo, RYLEE is Primary Nurse. tl3 22:27 X-ray completed. Portable x-ray completed in exam room. Patient tolerated procedure bb2 well. 22:28 XRAY Chest (1 view) In Process Unspecified. EDMS 01/12 01:03 Report given to RYLEE Posadas. tl3 Administered Medications: 01/11 22:12 Drug: Albuterol - atroVENT (3:1) (2.5 mg - 0.5 mg) 3 ml Route: Nebulizer; tl3 23:36 Follow up: Response: Marked relief of symptoms; Wheezing diminished tl3 22:23 Drug: SOLU-Medrol 125 mg Route: IVP; Site: right wrist; tl3 23:36 Follow up: Response: No adverse reaction; Marked relief of symptoms tl3 22:23 Drug: Lasix 40 mg Route: IVP; Site: right wrist; tl3 23:35 Follow up: Response: No adverse reaction tl3 01/12 00:23 Drug: Magnesium Sulfate 2 grams Route: IVPB; Infused Over: 2 hrs; Site: right wrist; tl3 01:17 Follow up: Response: No adverse reaction; IV Status: Completed infusion rk2 Outcome: 01:09 Discharge ordered by . cp 01:39 Discharged to home via wheelchair. rk2 01:39 Condition: good 01:39 Discharge instructions given to patient, Prescriptions given X 5 01:41 Patient left the ED. rk2 Signatures: Dispatcher [employer] EDNE Serge Girard PA PA cp Bock, Brittany bb2 Katharina Waddell RN RN rk2 Tiana Arredondo RN RN tl3
--- NOTE | 2018-01-12 01:09 | EDPHYS ---
Physician Documentation [facility] Name: Jethro Burden Age: 72 yrs Sex: Male : 1945 Arrival Date: 01/11/2018 Time: 21:46 Bed 27 Private MD: Cordell Herrera R ED Physician Serge Guallpa HPI: 01/11 22:15 This 72 yrs old Male presents to ER via EMS with complaints of Shortness Of cp Breath. 22:15 The patient has shortness of breath at rest. Onset: The symptoms/episode began/occurred cp 2-3 days ago. Duration: The symptoms are continuous, and are steadily getting worse. The patient's shortness of breath is aggravated by light activity, is alleviated by nothing. Associated signs and symptoms: Pertinent positives: productive cough, Pertinent negatives: chest pain, fever, hemoptysis, vomiting. Severity of symptoms: in the emergency department the symptoms are unchanged despite home interventions. 22:15 The patient has experienced similar episodes in the past, chronically. cp Historical: - Allergies: 21:57 No Known Drug Allergies; tl3 - Home Meds: 21:57 Albuterol Nebulizer [Active]; apixaban 5 mg Oral 1 tab 2 times per day [Active]; tl3 atorvastatin 80 mg Oral tab 0.5 tab once daily [Active]; budesonide 3 mg Oral CECX 3 caps once daily [Active]; budesonide-formoterol inhalation 2 puffs 2 times per day [Active]; docusate sodium 100 mg Oral cap 1 cap 2 times per day [Active]; ferrous gluconate 324 mg (36 mg iron) Oral tab twice a day [Active]; finasteride 5 mg Oral tab 1 tab once daily [Active]; insulin aspart subcutaneous 35 unit before meals [Active]; insulin detemir subcutaneous 70 units in am and 45 units in pm [Active]; isosorbide mononitrate 20 mg Oral tab 4 tab daily [Active]; losartan 100 mg Oral tab 1 tab once daily [Active]; metoprolol tartrate 50 mg Oral tab 1 tab once daily [Active]; pantoprazole 40 mg Oral TbEC 1 tab once daily [Active]; potassium chloride 10 mEq Oral cpER 2 caps once daily [Active]; sertraline 100 mg Oral tab 1 tab once daily [Active]; sotalol 120 mg Oral tab 1 tab 2 times per day [Active]; aspirin 81 mg Oral TbEC 1 tab once daily [Active]; magnesium oxide 420 mg Oral tab daily [Active]; albuterol sulfate 2.5 mg /3 mL (0.083 %) Inhl nebu 3 mL Q4H prn [Active]; potassium chloride 10 mEq Oral cpER 2 caps once daily [Active]; ipratropium bromide 0.02 % inhalation soln 2.5 mL every 6 hours [Active]; - PMHx: 21:58 Atrial Fib; CHF; COPD; Crohn's; Depression; Diabetes - IDDM; Hyperlipidemia; tl3 Hypertension; prostate problems; - Immunization history:: Adult Immunizations up to date. - Social history:: Smoking status: Patient/guardian denies using tobacco, the patient reports quitting approximately 14 years ago. - Ebola Screening: : Patient denies travel to an Ebola-affected area in the 21 days before illness onset. ROS: 22:20 Constitutional: Negative for body aches, chills, fever, poor PO intake. cp 22:20 Eyes: Negative for injury, pain, redness, and discharge. cp 22:20 ENT: Negative for drainage from ear(s), ear pain, sore throat, difficulty swallowing, difficulty handling secretions. 22:20 Cardiovascular: Positive for edema, Negative for chest pain, palpitations. 22:20 Respiratory: Positive for cough, with green sputum, shortness of breath, wheezing, Negative for hemoptysis, pleurisy. 22:20 Abdomen/GI: Negative for abdominal pain, nausea, vomiting, and diarrhea, constipation, anorexia, black/tarry stool, rectal bleeding. 22:20 Back: Negative for pain at rest, pain with movement, radiated pain. 22:20 : Negative for urinary symptoms. 22:20 Skin: Negative for cellulitis, rash. 22:20 Neuro: Negative for altered mental status, dizziness, headache, weakness. 22:20 All other systems are negative. Exam: 22:32 Constitutional: The patient appears alert, awake, non-diaphoretic, non-toxic, well cp developed, well nourished, in obvious distress, mildly distressed. 22:32 Head/Face: Normocephalic, atraumatic. cp 22:32 Eyes: Periorbital structures: appear normal, Pupils: equal, round, and reactive to light and accomodation, Extraocular movements: intact throughout, Conjunctiva: normal, no exudate, no injection, Sclera: no appreciated abnormality, Lids and lashes: appear normal, bilaterally. 22:32 ENT: External ear(s): are unremarkable, Ear canal(s): are normal, clear, TM's: bulging, is not appreciated, bilaterally, dullness, bilaterally, erythema, is not appreciated, bilaterally, Nose: is normal, Mouth: Lips: moist, Oral mucosa: pink and intact, moist, Posterior pharynx: Airway: no evidence of obstruction, patent, Tonsils: are normal in appearance, Uvula: midline, non-edematous, no erythema, swelling, is not appreciated, erythema, is not appreciated, exudate, is not appreciated, Voice: is normal. 22:32 Neck: ROM/movement: is normal, is supple, without pain, no range of motions limitations, no meningismus, no nuchal rigidity, Lymph nodes: no appreciated lymphadenopathy. 22:32 Chest/axilla: Inspection: normal, Palpation: is normal, no crepitus, no tenderness. 22:32 Cardiovascular: Rate: normal, Rhythm: regular, Pulses: Pulses are 2+ in right radial artery and left radial artery. Edema: mild bilateral lower legs, JVD: is not appreciated. 22:32 Respiratory: mild respiratory distress is noted, Respirations: labored breathing, that is mild, Breath sounds: decreased breath sounds, that are moderate, throughout, stridor, is not appreciated, wheezing: that is mild, is heard diffusely. 22:32 Abdomen/GI: Inspection: abdomen appears normal, Bowel sounds: active, all quadrants, Palpation: abdomen is soft and non-tender, in all quadrants, rebound tenderness, is not appreciated, voluntary guarding, is not appreciated, involuntary guarding, is not appreciated. 22:32 Skin: cellulitis, is not appreciated, no rash present. 22:32 Neuro: Orientation: to person, place \T\ time. Mentation: lucid, able to follow commands, Cerebellar function: is grossly normal, Motor: moves all fours, strength is normal, Sensation: no obvious gross deficits, Gait: is steady. 22:35 ECG was reviewed by the Attending Physician. cp Vital Signs: 21:58 BP 112 / 57; Pulse 73; Resp 20; Pulse Ox 99% on 3 lpm NC; tl3 23:34 BP 149 / 66; Pulse 74; Resp 18; Pulse Ox 100% on 3 lpm NC; tl3 01/12 00:24 BP 146 / 64; Pulse 75; Resp 20; Pulse Ox 98% ; tl3 MDM: 01/11 21:54 Patient medically screened. 01/12 01:08 Data reviewed: vital signs, nurses notes, lab test result(s), EKG, radiologic studies, cp plain films. 01:08 Test interpretation: by ED physician or midlevel provider: ECG, plain radiologic cp studies. Counseling: I had a detailed discussion with the patient and/or guardian regarding: the historical points, exam findings, and any diagnostic results supporting the discharge/admit diagnosis, lab results, radiology results, to return to the emergency department if symptoms worsen or persist or if there are any questions or concerns that arise at home. Response to treatment: the patient's symptoms have markedly improved after treatment, and as a result, I will discharge patient. 01/11 22:10 Order name: Basic Metabolic Panel; Complete Time: 00:09 01/12 00:09 Interpretation: Normal except: NA 133; CL 95; CO2 33; GLUC 239; CA 8.2; BUN 28; CRE cp 1.30; GFR 55. 01/11 22:10 Order name: BNP; Complete Time: 00:09 01/12 00:12 Interpretation: Abnormal: BNP 197. 01/11 22:10 Order name: CBC with Diff; Complete Time: 00: 01/12 00:12 Interpretation: Normal except: RBC 3.75; HGB 11.6; HCT 33.5; ROBSON% 84.0; LYM% 8.9; NEUT cp A 8.6. 01/11 22:10 Order name: Ckmb; Complete Time: 00:09 01/11 22:10 Order name: CPK; Complete Time: 00:09 01/11 22:10 Order name: LFT's; Complete Time: 00: 01/12 00:12 Interpretation: Normal except: GLOB 3.7; A/G 0.9. 01/11 22:10 Order name: Magnesium; Complete Time: 00:09 01/11 22:10 Order name: PT-INR; Complete Time: 00:09 01/11 22:10 Order name: Ptt, Activated; Complete Time: 00:09 cp 01/11 22:10 Order name: Troponin (emerg Dept Use Only); Complete Time: 00:09 01/11 22:10 Order name: XRAY Chest (1 view) 01/12 01:07 Order name: Urine Dipstick--Ancillary (enter results) rg2 01/11 22:10 Order name: EKG; Complete Time: 22:10 01/11 22:10 Order name: Cardiac monitoring; Complete Time: 22:23 01/11 22:10 Order name: EKG - Nurse/Tech; Complete Time: 22:24 01/11 22:10 Order name: IV Saline Lock; Complete Time: 22:24 01/11 22:10 Order name: Labs collected and sent; Complete Time: 22:24 01/11 22:10 Order name: O2 Per Protocol; Complete Time: 22:24 cp 01/11 22:10 Order name: O2 Sat Monitoring; Complete Time: 22:24 01/11 22:10 Order name: Urine Dipstick-Ancillary (obtain specimen); Complete Time: 01:03 cp EC/14 22:35 Rate is 70 beats/min. Rhythm is regular. CO interval is normal. QRS interval is normal. cp QT interval is normal. No ST changes noted. Interpreted by me. Reviewed by me. Administered Medications: 22:12 Drug: Albuterol - atroVENT (3:1) (2.5 mg - 0.5 mg) 3 ml Route: Nebulizer; tl3 23:36 Follow up: Response: Marked relief of symptoms; Wheezing diminished tl3 22:23 Drug: SOLU-Medrol 125 mg Route: IVP; Site: right wrist; tl3 23:36 Follow up: Response: No adverse reaction; Marked relief of symptoms tl3 22:23 Drug: Lasix 40 mg Route: IVP; Site: right wrist; tl3 23:35 Follow up: Response: No adverse reaction 3 01/12 00:23 Drug: Magnesium Sulfate 2 grams Route: IVPB; Infused Over: 2 hrs; Site: right wrist; tl3 01:17 Follow up: Response: No adverse reaction; IV Status: Completed infusion rk2 Disposition: 06:03 Co-signature as Attending Physician, Serge Guallpa MD I agree with the assessment and colin plan of care. Disposition: 01/12/18 01:09 Discharged to Home. Impression: Shortness of breath, Chronic obstructive pulmonary disease with acute lower respiratory infection. - Condition is Stable. - Discharge Instructions: Chronic Obstructive Pulmonary Disease, Shortness of Breath, Aspirin and Your Heart. - Prescriptions for prednisone 50 mg Oral tablet - take 1 tablet by ORAL route once daily for 5 days; 5 tablet. Zithromax Z- Jose 250 mg Oral Tablet - take 1 tablet by ORAL route as directed for 5 days Day 1 - take two (2) tablets one time. Day 2, 3, 4 , 5 take one (1) tablet once daily.; 6 tablet. Lasix 40 mg Oral Tablet - take 1 tablet by ORAL route once daily for 7 days; 7 tablet. Albuterol Sulfate 2.5 mg /3 mL (0.083 %) Inhalation Solution for Nebulization - inhale 1 unit by NEBULIZATION route every 8 hours As needed; 1 box. Flonase Allergy Relief 50 mcg/actuation Nasal spray,suspension - inhale 1 spray by INTRANASAL route once daily; 1 unit. - Medication Reconciliation Form, Thank You Letter, Antibiotic Education, Prescription Opioid Use form. - Follow up: Private Physician; When: 1 - 2 days; Reason: Recheck today's complaints. - Problem is an acute exacerbation. - Symptoms have improved. Signatures: Dispatcher [employer] EDMS Serge Guallpa MD MD cha Page, Corey, PA PA cp Kidder, Rhonda, RN RN rk2 Tiana Arredondo RN RN tl3 Corrections: (The following items were deleted from the chart) 01:12 01:09 01/12/2018 01:09 Discharged to Home. Impression: Chronic obstructive pulmonary cp disease with (acute) exacerbation; Shortness of breath. Condition is Stable. Forms are Medication Reconciliation Form, Thank You Letter, Antibiotic Education, Prescription Opioid Use. Follow up: Private Physician; When: 1 - 2 days; Reason: Recheck today's complaints. Problem is an acute exacerbation. Symptoms have improved. cp 01:41 01:12 01/12/2018 01:09 Discharged to Home. Impression: Shortness of breath; Chronic rk2 obstructive pulmonary disease with acute lower respiratory infection. Condition is Stable. Discharge Instructions: Chronic Obstructive Pulmonary Disease, Shortness of Breath, Aspirin and Your Heart. Prescriptions for prednisone 50 mg Oral tablet - take 1 tablet by ORAL route once daily for 5 days; 5 tablet, Zithromax Z-Jose 250 mg Oral Tablet - take 1 tablet by ORAL route as directed for 5 days Day 1 - take two (2) tablets one time. Day 2, 3, 4 , 5 take one (1) tablet once daily.; 6 tablet, Lasix 40 mg Oral Tablet - take 1 tablet by ORAL route once daily for 7 days; 7 tablet. and Forms are Medication Reconciliation Form, Thank You Letter, Antibiotic Education, Prescription Opioid Use. Follow up: Private Physician; When: 1 - 2 days; Reason: Recheck today's complaints. Problem is an acute exacerbation. Symptoms have improved. cp
[2018-01-12 01:12] LABS: Urine Blood NEGATIVE (NEG); Urine Glucose 1+ (NEG); Urine Protein NEGATIVE (NEG); Urine pH 6.5 (5.0-7.0)
[2018-01-12 02:10] VITALS: BP 146/64; O2SAT 98
--- NOTE | 2018-01-12 08:11 | RAD REPORT ---
EXAM DESCRIPTION: [place] Single View01/11/2018 10:33 pm CLINICAL HISTORY: Shortness breath COMPARISON: November 2017 FINDINGS: The lungs appear clear of acute infiltrate. The heart is normal size. Opacity overlying t he left lateral base represents epicardial fat IMPRESSION: No acute abnormalities displayed
--- NOTE | 2018-01-12 08:28 | EKG ---
Test Date: 2018-01-11 Test Time: 22:31:01 Director Corporate Communications: TL MEASUREMENT RESULTS: Intervals: Rate: 70 DC: 162 QRSD: 98 QT: 440 QTc: 475 [place]: P: DC: 162 QRS: 66 T: 69 INTERPRETIVE STATEMENTS: Sinus rhythm with premature atrial complexes Otherwise normal ECG Compared to ECG 12/17/2017 22:19:22 Atrial premature complex(es) now present Prolonged QT interval no longer present Electronically Signed On 01-12-18 08:27:32 CDT by Bertram Welch
== END 2018-01-12 01:41 | disposition home or self-care (01) ==
LOC: ER 21:44
DX: J44.0 Chronic obstructive pulmonary disease with (acute) lower respiratory infection (principal); I48.91 Unspecified atrial fibrillation; I50.9 Heart failure, unspecified; I10 Essential (primary) hypertension; E11.9 Type 2 diabetes mellitus without complications; E78.5 Hyperlipidemia, unspecified; K50.90 Crohn's disease, unspecified, without complications; Z87.891 Personal history of nicotine dependence; Z79.4 Long term (current) use of insulin
CPT/HCPCS: 36415; 71045; 80048; 80076; 81003; 82550; 82553; 83735; 83880; 84484; 85025; 85610; 85730; 93005; 94640; 96365; 96375; 99284; J2930; J3475

== ENCOUNTER 2018-02-09 16:06 | Inpatient (IN) | payer OTHER ==
--- OUTSIDE RECORDS SUMMARY | 2018-02-09 16:33 | XMS REPORT | Clinical Summary ---
:1945 Author Organization [facility] Address [address] [place] [address] Care Team Providers Name Role Phone Asked, [...] Not on file Results Not on fileafter 02/08/2017 Insurance Payer Benefit Plan / Group Subscriber ID Type Phone Address [facility] xxxxxxxxx O Home: [address] [place], [place] [phone] [id number]
--- OUTSIDE RECORDS SUMMARY | 2018-02-09 16:36 | XMS REPORT | Summary of Care ---
:1945 Author Organization [facility] Address [address] [place] [id number] Encounter HQ Argentinantr_max(FIN) [phone] Date(s): 07/10/16 - 07/21/[address] Professional Services provided by [facility] [place] [address]- Discharge Disposition: Home or Self Care Attending Physician: Nemesio Toledo DO Admitting Physician: Nemesio Toledo DO Referring Physician: Serge Guallpa MD Vital Signs Most recent to oldest 1 2 3 [Reference Range]: Height 177.8 cm 177.8 cm 177.8 cm (07/11/16 3:26 PM) (07/11/16 11:43 AM) (07/11/16 7:01 AM) Current Weight 106.3 kg (07/15/16 6:51 AM) Temperature Oral 98.0 DegF 98.0 DegF 97.9 DegF [96.4-99.1 DegF] (07/21/16 12:00 PM) (07/21/16 8:00 AM) (07/21/16 3:56 AM) Blood Pressure 147/69 mmHg 108/59 mmHg 119/66 mmHg [90-140/60-90 mmHg] *HI* (07/21/16 8:00 AM) (07/21/16 3:56 AM) (07/21/16 12:00 PM) Respiratory Rate [14-20 19 BRMIN 19 BRMIN 16 BRMIN BRMIN] (07/21/16 12:00 PM) (07/21/16 8:00 AM) (07/21/16 8:00 AM) Peripheral Pulse Rate 72 bpm 65 bpm 72 bpm [60-100 bpm] (07/21/16 12:00 PM) (07/21/16 8:00 AM) (07/21/16 3:56 AM) Weight 105 kg 105.909 kg (07/10/16 5:21 AM) (07/10/16 12:24 AM) Body Mass Index 33.21 m2 31.67 m2 (07/10/16 5:21 AM) (07/10/16 12:24 AM) Problem List Condition Effective Dates Status Health Status Informant COPD (chronic obstructive pulmonary Resolved disease)(Confirmed) CHF (congestive heart Resolved failure)(Confirmed) HTN (hypertension)(Confirmed) Resolved DM (diabetes mellitus Resolved screen)(Confirmed) Allergies, Adverse Reactions, Alerts Substance Reaction Severity Status NKDA Active Medications acetaminophen 1,000 mg, 2 tab, Route: NG, Drug form: TAB, Q6H, Dosing Weight 105, kg, Start date: 07/11/16 12:00:00 [employer]TERATIONS [employer]ILOR, Duration: 30 day, Stop date: 08/10/16 6:00:00 HAND ALTERATIONS TAILOR Notes: Max acetaminophen 4000 mg/day (4 gm/day). (Same as: Tylenol Extra Strength) Start Date: 07/11/16 Stop Date: 07/21/16 Status: Discontinuedacetaminophen 500 mg oral tablet 1,000 mg=2 tab, NG, Q6H, PRN Pain 4-6/Temp > 100.4 F, X 14 day, # 50 tab, 0 Refill(s) Start Date: 07/21/16 Stop Date: 08/04/16 Status: Orderedalbumin human 5% intravenous solution 25 gm, 500 mL, 500 ml/hr, Route: IV, Drug Form: INJ, Dosing Weight 105, kg, ONCE , STAT, Start date: 07/10/16 11:20:00 HAND ALTERATIONS TAILOR, Stop date: 07/10/16 11:20:00 HAND ALTERATIONS TAILOR Notes: LOT#: Mfg: (Same as: Albuminar)"blood product derivative"WASTE: F/P - Red; E -Red MEDICATION WASTE Product Size: 25 gmProduct Wasted: ___ gm Start Date: 07/10/16 Stop Date: 07/10/16 Status: Completedalbumin human 5% intravenous solution 12.5 gm, 250 mL, 500 ml/hr, Route: IV, Drug Form: INJ, Dosing Weight 105, kg, ONCE, Start date: 07/15/16 19:12:00 HAND ALTERATIONS TAILOR, Stop date: 07/15/16 19:12:00 HAND ALTERATIONS TAILOR Notes: LOT#: Mfg: WASTE: F/P - Red; E -Red (Same as: Albuminar)"blood product derivative" Start Date: 07/15/16 Stop Date: 07/15/16 Status: Completedalbuterol 0.083% inhalation solution 2.49 mg=3 mL, INHALATION, Q4H, PRN wheezing, coughing, or shortness of breath, # 120 ea, 1 Refill(s) Start Date: 07/11/16 Status: Orderedaspirin 81 mg, Route: PO, Drug form: ECTAB, Q24H, Dosing Weight 105, kg, Start date: 13:00:00 HAND ALTERATIONS TAILOR, Duration: 30 day, Stop date: 08/10/16 13:00:00 HAND ALTERATIONS TAILOR Start Date: 07/12/16 Stop Date: 07/12/16 Status: Deletedaspirin 81 mg tablet, chewable 81 mg=1 tab, NG, Daily, # 30 tab, 2 Refill(s) Start Date: 07/21/16 Stop Date: 10/19/16 Status: Orderedaspirin 81 mg tablet, chewable 81 mg, 1 tab, Route: NG, Drug form: CHEWTAB, Daily, Start date: 07/12/16 12:00: 00 HAND ALTERATIONS TAILOR, Duration: 30 day, Stop date: 08/11/16 9:00:00 HAND ALTERATIONS TAILOR Notes: Take with food. Start Date: 07/12/16 Stop Date: 07/21/16 Status: Discontinuedaspirin 81 mg tablet, chewable 81 mg=1 tab, PO, Daily, tab, 0 Refill(s) Start Date: 07/11/16 Stop Date: 07/21/16 Status: Discontinuedbisacodyl 10 mg, 1 supp, Route: MS, Drug form: SUPP, Daily, Dosing Weight 105.909, kg, Start date: 07/10/16 9:00:00 HAND ALTERATIONS TAILOR, Duration: 30 day, Stop date: 08/08/16 9:00:00 HAND ALTERATIONS TAILOR Notes: (Same As: Dulcolax, Bisco-Lax) Start Date: 07/10/16 Stop Date: 07/10/16 Status: Canceledbisacodyl 10 mg, 1 supp, Route: MS, Drug form: SUPP, ONCE, Dosing Weight 105, kg, Start date: 07/20/16 11:14:00 HAND ALTERATIONS TAILOR, Stop date: 07/20/16 11:14:00 HAND ALTERATIONS TAILOR Notes: (Same As: Dulcolax, Bisco-Lax) Start Date: 07/20/16 Stop Date: 07/20/16 Status: Completedbisacodyl 10 mg, 1 supp, Route: MS, Drug form: SUPP, ONCE, Dosing Weight 105, kg, PRN as needed for constipation, Start date: 07/13/16 8:38:00 HAND ALTERATIONS TAILOR Notes: (Same As: Dulcolax, Bisco-Lax) Start Date: 07/13/16 Stop Date: 07/14/16 Status: Discontinuedbisacodyl 10 mg rectal solution 10 mg, Route: MS, Drug form: RANDEE, ONCE, Dosing Weight 105, kg, Priority: NOW, Start date: 07/20/16 10:57:00 HAND ALTERATIONS TAILOR, Stop date: 07/20/16 10:57:00 HAND ALTERATIONS TAILOR Start Date: 07/20/16 Stop Date: 07/20/16 Status: Discontinuedbudesonide 3 mg oral capsule, extended release 9 mg=3 cap, PO, Daily, # 270 cap, 0 Refill(s) Start Date: 07/11/16 Status: Orderedbudesonide-formoterol 160 mcg-4.5 mcg/inh inhalation aerosol with adapter 2 puff, INHALATION, BID, # 1 ea, 0 Refill(s) Start Date: 07/21/16 Stop Date: 08/20/16 Status: Orderedbudesonide-formoterol 160 mcg-4.5 mcg/inh inhalation aerosol with adapter 2 puff, Route: INHALATION, Drug Form: AERO/A, Dosing Weight 105, kg, BID, Start date: 07/13/16 9:00:00 HAND ALTERATIONS TAILOR, Stop date: 08/11/16 8:00:00 HAND ALTERATIONS TAILOR Notes: (Same as: Symbicort)WASTE: Aerosol - Return to Pharmacy Start Date: 07/13/16 Stop Date: 07/21/16 Status: Discontinuedbudesonide-formoterol 160 mcg-4.5 mcg/inh inhalation aerosol with adapter 2 puff, INHALATION, BID, # 6 gm, 0 Refill(s) Start Date: 07/11/16 Stop Date: 07/21/16 Status: Discontinuedclindamycin 600 mg, 4 mL, Route: IV, Drug form: INJ, [id number], Dosing Weight 105, kg, Start date: 07/10/16 6:00:00CST, Stop date: 07/15/16 22:00:00 HAND ALTERATIONS TAILOR Notes: (clindamycin 150 mg/1 ml (600 mg/4 ml VL) INJ) (Same As: Cleocin) Start Date: 07/10/16 Stop Date: 07/15/16 Status: Discontinuedcollagenase topical 250 units/g ointment 1 appl, TOP, BID, X 30 day, # 90 gm, 2 Refill(s) Start Date: 07/21/16 Stop Date: 10/19/16 Status: Orderedcyanocobalamin 0 Refill(s) Start Date: 07/11/16 Status: OrderedDextrose 5% in Water IV 1000 mL 1,000 mL, Rate: 40 ml/hr, Infuse over: 25 hr, Route: IV, Dosing Weight 105 kg, Total Volume: 1,000, Start date: 07/18/16 8:58:00 HAND ALTERATIONS TAILOR, Duration: 30 day, Stop date: 08/17/16 8:57:00 HAND ALTERATIONS TAILOR Start Date: 07/18/16 Stop Date: 07/18/16 Status: DiscontinuedDextrose 50% Syringe 25 gm, 50 mL, Route: IVP, Drug Form: INJ, Dosing Weight 105.909, kg, PRN, PRN Abnormal Lab Result, Start date: 07/10/16 3:23:00 HAND ALTERATIONS TAILOR, Duration: 30 day, Stop date: 08/09/16 3:22:00 HAND ALTERATIONS TAILOR, For FSBG < 40 mg/dL Start Date: 07/10/16 Stop Date: 07/10/16 Status: DiscontinuedDextrose 50% Syringe 12.5 gm, 25 mL, Route: IVP, Drug Form: INJ, Dosing Weight 105.909, kg, PRN, PRN Abnormal Lab Result,Start date: 07/10/16 3:23:00 HAND ALTERATIONS TAILOR, Duration: 30 day, Stop date: 08/09/16 3:22:00 HAND ALTERATIONS TAILOR, For FSBG 40 mg/dL - 60 mg/dL Start Date: 07/10/16 Stop Date: 07/10/16 Status: DiscontinuedDextrose 50% Syringe 25 gm, 50 mL, Route: IVP, Drug Form: INJ, Dosing Weight 105, kg, PRN, PRN Abnormal Lab Result, Startdate: 07/16/16 9:47:00 HAND ALTERATIONS TAILOR, Duration: 30 day, Stop date: 08/15/16 9:46:00 HAND ALTERATIONS TAILOR, For FSBG < 40 mg/dL Start Date: 07/16/16 Stop Date: 07/17/16 Status: DiscontinuedDextrose 50% Syringe 12.5 gm, 25 mL, Route: IVP, Drug Form: INJ, Dosing Weight 105, kg, PRN, PRN Abnormal Lab Result, Start date: 07/16/16 9:47:00 HAND ALTERATIONS TAILOR, Duration: 30 day, Stop date: 08/15/16 9:46:00 HAND ALTERATIONS TAILOR, For FSBG 40 mg/dL -60 mg/dL Start Date: 07/16/16 Stop Date: 07/17/16 Status: DiscontinuedDextrose 50% Syringe 12.5 gm, 25 mL, Route: IVP, Drug Form: INJ, Dosing Weight 105, kg, PRN, PRN Blood Glucose Results, Start date: 07/17/16 14:49:00 HAND ALTERATIONS TAILOR, Duration: 30 day, Stop date: 08/16/16 14:48:00 HAND ALTERATIONS TAILOR Start Date: 07/17/16 Stop Date: 07/18/16 Status: DiscontinuedDextrose 50% Syringe 25 gm, 50 mL, Route: IVP, Drug Form: INJ, Dosing Weight 105, kg, PRN, PRN Blood Glucose Results, Start date: 07/17/16 14:49:00 HAND ALTERATIONS TAILOR, Duration: 30 day, Stop date : 08/16/16 14:48:00 HAND ALTERATIONS TAILOR Start Date: 07/17/16 Stop Date: 07/18/16 Status: DiscontinuedDextrose 50% Syringe 50 mL, Route: IVP, Dosing Weight 105, kg, PRN, PRN Blood Glucose Results, Start date: 07/17/16 22:27:00 HAND ALTERATIONS TAILOR, Duration: 30 day, Stop date: 08/16/16 22:26:00 HAND ALTERATIONS TAILOR Start Date: 07/17/16 Stop Date: 07/17/16 Status: DeletedDextrose 50% Syringe 25 mL, Route: IVP, Dosing Weight 105, kg, PRN, PRN Blood Glucose Results, Start date: 07/17/16 22:27:00 HAND ALTERATIONS TAILOR, Duration: 30 day, Stop date: 08/16/16 22:26:00 HAND ALTERATIONS TAILOR Start Date: 07/17/16 Stop Date: 07/17/16 Status: DeletedDextrose 50% Syringe 25 gm, 50 mL, Route: IVP, Drug Form: INJ, Dosing Weight 105, kg, PRN, PRN Abnormal Lab Result, Startdate: 07/12/16 1:37:00 HAND ALTERATIONS TAILOR, Duration: 30 day, Stop date: 08/11/16 1:36:00 HAND ALTERATIONS TAILOR, For FSBG < 40 mg/dL Start Date: 07/12/16 Stop Date: 07/13/16 Status: DiscontinuedDextrose 50% Syringe 12.5 gm, 25 mL, Route: IVP, Drug Form: INJ, Dosing Weight 105, kg, PRN, PRN Abnormal Lab Result, Start date: 07/12/16 1:37:00 HAND ALTERATIONS TAILOR, Duration: 30 day, Stop date: 08/11/16 1:36:00 HAND ALTERATIONS TAILOR, For FSBG 40 mg/dL -60 mg/dL Start Date: 07/12/16 Stop Date: 07/13/16 Status: DiscontinuedDextrose 50% Syringe 25 gm, 50 mL, Route: IVP, Drug Form: INJ, Dosing Weight 105, kg, PRN, PRN Blood Glucose Results, Start date: 07/18/16 10:17:00 HAND ALTERATIONS TAILOR, Duration: 30 day, Stop date : 08/17/16 10:16:00 HAND ALTERATIONS TAILOR Start Date: 07/18/16 Stop Date: 07/21/16 Status: DiscontinuedDextrose 50% Syringe 12.5 gm, 25 mL, Route: IVP, Drug Form: INJ, Dosing Weight 105, kg, PRN, PRN Blood Glucose Results, Start date: 07/18/16 10:17:00 HAND ALTERATIONS TAILOR, Duration: 30 day, Stop date: 08/17/16 10:16:00 HAND ALTERATIONS TAILOR Start Date: 07/18/16 Stop Date: 07/21/16 Status: DiscontinuedDextrose 50% Syringe 25 gm, 50 mL, Route: IVP, Drug Form: INJ, Dosing Weight 105, kg, PRN, PRN Abnormal Lab Result, Startdate: 07/13/16 23:19:00 HAND ALTERATIONS TAILOR, Duration: 30 day, Stop date: 08/12/16 23:18:00 HAND ALTERATIONS TAILOR, For FSBG < 40 mg/dL Start Date: 07/13/16 Stop Date: 07/17/16 Status: DiscontinuedDextrose 50% Syringe 12.5 gm, 25 mL, Route: IVP, Drug Form: INJ, Dosing Weight 105, kg, PRN, PRN Abnormal Lab Result, Start date: 07/13/16 23:19:00 HAND ALTERATIONS TAILOR, Duration: 30 day, Stop date: 08/12/16 23:18:00 HAND ALTERATIONS TAILOR, For FSBG 40 mg/dL- 60 mg/dL Start Date: 07/13/16 Stop Date: 07/17/16 Status: DiscontinuedDextrose 50% Syringe 12.5 gm, 25 mL, Route: IVP, Drug Form: INJ, Dosing Weight 105, kg, PRN, PRN Abnormal Lab Result, Start date: 07/10/16 5:33:00 HAND ALTERATIONS TAILOR, Duration: 30 day, Stop date: 08/09/16 5:32:00 HAND ALTERATIONS TAILOR, For FSBG 40 mg/dL -60 mg/dL Start Date: 07/10/16 Stop Date: 07/13/16 Status: DiscontinuedDextrose 50% Syringe 25 gm, 50 mL, Route: IVP, Drug Form: INJ, Dosing Weight 105, kg, PRN, PRN Abnormal Lab Result, Startdate: 07/10/16 5:33:00 HAND ALTERATIONS TAILOR, Duration: 30 day, Stop date: 08/09/16 5:32:00 HAND ALTERATIONS TAILOR, For FSBG < 40 mg/dL Start Date: 07/10/16 Stop Date: 07/13/16 Status: DiscontinuedDilaudid 0.1 mg, 0.05 mL, Route: IVP, Drug form: INJ, Daily, Dosing Weight 105, kg, PRN Dressing Change, AT PHYSICIAN DIRECTIVE ONLY, Priority: STAT, Start date: 10:26:00 HAND ALTERATIONS TAILOR, Duration: 30 day, Stop date: 08/19/16 10:25:00 HAND ALTERATIONS TAILOR Notes: Same as Dilaudid Start Date: 07/20/16 Stop Date: 07/21/16 Status: Discontinueddiltiazem 25 mg/5 ml VL 125 mg + sodium chloride 0.9% INJ 100 mL 125 mg, 25 mL, Rate: Titrate, Start Dose: 5 mg/hr, Titration: 5 mg/hr every hour , Goal(s): Maintain HR < 100, Max Dose: 15 mg/hr, Route: IV, Dosing Weight 105 kg, Total Volume: 125, Start date: 07/12/16 22:22:00 HAND ALTERATIONS TAILOR, Duration: 30 day, Stop date: 08/11... Notes: (Same as: Cardizem) Start Date: 07/12/16 Stop Date: 07/13/16 Status: Discontinueddocusate 100 mg, 1 cap, Route: NG, Drug form: CAP, Q12H, Dosing Weight 105.909, kg, Start date: 07/10/16 9:00:00 HAND ALTERATIONS TAILOR, Duration: 30 day, Stop date: 08/08/16 21:00: 00 HAND ALTERATIONS TAILOR Notes: (Same as: Colgutierrez) (Do Not Crush) Start Date: 07/10/16 Stop Date: 07/10/16 Status: Canceleddocusate sodium 100 mg oral capsule 100 mg=1 cap, PO, BID, # 60 cap, 0 Refill(s) Start Date: 07/11/16 Status: Ordereddocusate sodium 100 mg oral capsule 100 mg=1 cap, PO, BID, # 60 cap, 0 Refill(s) Start Date: 07/21/16 Status: Ordereddocusate sodium 150 mg/15 mL oral liquid 100 mg, 10 mL, Route: PO, Drug form: LIQ, Q12H, Dosing Weight 105, kg, Start date: 07/13/16 9:00:00 HAND ALTERATIONS TAILOR, Duration: 30 day, Stop date: 08/11/16 21:00:00 HAND ALTERATIONS TAILOR Notes: (Same as: Colace) Start Date: 07/13/16 Stop Date: 07/14/16 Status: Discontinuedenoxaparin 30 mg, 0.3 mL, Route: SUB-Q, Drug form: INJ, [id number], Dosing Weight 105.909, kg , Start date: 07/10/16 4:00:00 HAND ALTERATIONS TAILOR, Duration: 30 day, Stop date: 08/08/16 16:00: 00 HAND ALTERATIONS TAILOR Notes: (Same as: Lovenox) Start Date: 07/10/16 Stop Date: 07/10/16 Status: Discontinuedenoxaparin 30 mg, Route: SUB-Q, Drug form: INJ, [id number], Dosing Weight 105.909, kg, Start date: 07/10/16 6:00:00 HAND ALTERATIONS TAILOR, Duration: 30 day, Stop date: 08/08/16 18:00:00 HAND ALTERATIONS TAILOR Start Date: 07/10/16 Stop Date: 07/10/16 Status: Canceledenoxaparin 40 mg, Route: SUB-Q, Drug form: INJ, [id number], Dosing Weight 105, kg, Start date : 07/10/16 9:00:00 HAND ALTERATIONS TAILOR, Duration: 30 day, Stop date: 08/08/16 9:00:00 HAND ALTERATIONS TAILOR Start Date: 07/10/16 Stop Date: 07/10/16 Status: Canceledfamotidine 20 mg, 2 mL, Route: IVPB, Drug form: INJ, Q12H, Dosing Weight 105.909, kg, Start date: 07/10/16 9:00:00 HAND ALTERATIONS TAILOR, Duration: 30 day, Stop date: 08/08/16 21:00: 00 HAND ALTERATIONS TAILOR Notes: (Same as: Pepcid)Can be dilute in 5-10cc NS IVP: Slow IV push over at least 2 minutes. Start Date: 07/10/16 Stop Date: 07/12/16 Status: DiscontinuedfentaNYL 25 microgram, 0.5 mL, Route: IV, Drug form: INJ, ONCE, Dosing Weight 105, kg, Start date: 07/13/16 15:53:00 HAND ALTERATIONS TAILOR, Stop date: 07/13/16 15:53:00 HAND ALTERATIONS TAILOR Notes: (Same as: Sublimaze) Preservative free. Start Date: 07/13/16 Stop Date: 07/13/16 Status: CompletedfentaNYL 1000microgram/20ml drip (pyxis) 1,000 microgram 1,000 microgram, 20 mL, Rate: Titrate, Start Dose: 50 microgram/hr, Titration: Titrate by 25 micrograms/hour every 15 minutes, Goal(s): RASS 0, Max Dose: 300 mcg/hr, Route: IV, Dosing Weight 105 kg, Total Volume: 20, Start date: 07/10/16 14:27:00 HAND ALTERATIONS TAILOR,... Start Date: 07/10/16 Stop Date: 07/11/16 Status: DiscontinuedfentaNYL INJ 1,000 microgram 1,000 microgram, 20 mL, Rate: Titrate, Start Dose: 50 microgram/hr, Titration: Titrate by 25 micrograms/hour every 15 minutes, Goal(s): RASS 0, Max Dose: 300 mcg/hr, Route: IV, Dosing Weight 105 kg, Total Volume: 20, Start date: 07/10/16 5:34:00 HAND ALTERATIONS TAILOR,... Notes: (Same as: Sublimaze) Preservative free. Start Date: 07/10/16 Stop Date: 07/10/16 Status: Discontinuedferrous gluconate 325 mg oral tablet 325 mg=1 tab, PO, BID, # 100 tab, 0 Refill(s) Start Date: 07/11/16 Status: Orderedfinasteride 5 mg oral tablet 5 mg=1 tab, PO, Daily, # 30 tab, 0 Refill(s) Start Date: 07/11/16 Status: Orderedfurosemide 40 mg oral tablet 40 mg=1 tab, PO, Daily, 0 Refill(s) Start Date: 07/11/16 Stop Date: 07/11/16 Status: Discontinuedfurosemide 40 mg oral tablet 120 mg=3 tab, PO, QAM, 0 Refill(s) Start Date: 07/11/16 Stop Date: 07/21/16 Status: Discontinuedfurosemide 40 mg oral tablet 40 mg, 1 tab, Route: NG, Drug form: TAB, Q12H, Dosing Weight 105, kg, Start date : 07/11/16 9:00:00 HAND ALTERATIONS TAILOR, Duration: 30 day, Stop date: 08/09/16 21:00:00 HAND ALTERATIONS TAILOR Notes: (Same as: Lasix) May cause GI upset. Give with food or milk. Start Date: 07/11/16 Stop Date: 07/13/16 Status: Discontinuedfurosemide 40 mg oral tablet 80 mg=2 tab, PO, QPM, # 60 tab, 0 Refill(s) Start Date: 07/21/16 Stop Date: 08/20/16 Status: Orderedfurosemide 40 mg oral tablet 80 mg=2 tab, PO, QPM, 0 Refill(s) Start Date: 07/11/16 Stop Date: 07/21/16 Status: Discontinuedgabapentin 100 mg oral capsule 100 mg=1 cap, PO, TID, # 90 cap, 1 Refill(s) Start Date: 07/11/16 Status: Orderedgabapentin 300 mg oral capsule 300 mg, 1 cap, Route: NG, Drug form: CAP, Q8H, Dosing Weight 105, kg, Start date : 07/11/16 9:00:00 HAND ALTERATIONS TAILOR, Duration: 30 day, Stop date: 08/10/16 8:00:00 HAND ALTERATIONS TAILOR Notes: (Same as: Neurontin) Start Date: 07/11/16 Stop Date: 07/12/16 Status: Discontinuedglucagon 1 mg, Route: IM, Drug form: PDR/INJ, PRN, Dosing Weight 105, kg, PRN Blood Glucose Results, Start date: 07/17/16 14:49:00 HAND ALTERATIONS TAILOR, Duration: 30 day, Stop date : 08/16/16 14:48:00 HAND ALTERATIONS TAILOR Start Date: 07/17/16 Stop Date: 07/18/16 Status: Discontinuedglucagon 1 mg, Route: IM, PRN, Dosing Weight 105, kg, PRN Blood Glucose Results, Start date: 07/17/16 22:27:00 HAND ALTERATIONS TAILOR, Duration: 30 day, Stop date: 08/16/16 22:26:00 HAND ALTERATIONS TAILOR Start Date: 07/17/16 Stop Date: 07/17/16 Status: Deletedglucagon 1 mg, Route: IM, Drug form: PDR/INJ, PRN, Dosing Weight 105, kg, PRN Blood Glucose Results, Start date: 07/18/16 10:17:00 HAND ALTERATIONS TAILOR, Duration: 30 day, Stop date : 08/17/16 10:16:00 HAND ALTERATIONS TAILOR Start Date: 07/18/16 Stop Date: 07/21/16 Status: Discontinuedheparin 7,500 unit, 1.5 mL, Route: SUB-Q, Drug form: INJ, Q8H, Dosing Weight 105, kg, Start date: 07/10/16 16:00:00 HAND ALTERATIONS TAILOR, Duration: 30 day, Stop date: 08/09/16 8:00: 00 HAND ALTERATIONS TAILOR Notes: porcine heparin Start Date: 07/10/16 Stop Date: 07/21/16 Status: DiscontinuedhydrALAZINE 20 mg, 1 mL, Route: IV, Drug form: INJ, Q4H, Dosing Weight 105, kg, PRN Hypertension, Start date: 07/16/16 11:43:00 HAND ALTERATIONS TAILOR, Duration: 30 day, Stop date: 11:42:00 HAND ALTERATIONS TAILOR Notes: (Same as: Apresoline)Push over 5 minutes Start Date: 07/16/16 Stop Date: 07/17/16 Status: Discontinuedinsulin aspart 25 unit, SUB-Q, TID-Before Meals, 0 Refill(s) Start Date: 07/11/16 Stop Date: 07/21/16 Status: Discontinuedinsulin aspart 10 unit, 0.1 mL, Route: SUB-Q, Drug form: SOLN, TID-Before Meals, Dosing Weight 105, kg, Start date:07/18/16 16:30:00 HAND ALTERATIONS TAILOR, Duration: 30 day, Stop date: 11:30:00 HAND ALTERATIONS TAILOR Notes: Roll in palms of hands gently; Do not shake vigorously. (Same as: [employer]"single patient use only"WASTE: F/P - Black; E - Municipal Trash Bin Stable for 28 days at room temperature.Expires in days from Date Start Date: 07/18/16 Stop Date: 07/21/16 Status: Discontinuedinsulin aspart 2 unit, 0.02 mL, Route: SUB-Q, Drug form: SOLN, TID-Before Meals, Dosing Weight 105, kg, PRN Blood Glucose Results, Start date: 07/18/16 10:17:00 HAND ALTERATIONS TAILOR, Duration : 30 day, Stop date: 08/17/16 10:16:00 HAND ALTERATIONS TAILOR Notes: Roll in palms of hands gently; Do not shake vigorously. (Same as: [employer]"single patient use only"WASTE: F/P - Black; E - Municipal Trash Bin Stable for 28 days at room temperature.Expires in days from Date Start Date: 07/18/16 Stop Date: 07/21/16 Status: Discontinuedinsulin aspart 10 unit, 0.1 mL, Route: SUB-Q, Drug form: SOLN, TID-Before Meals, Dosing Weight 105, kg, PRN Blood Glucose Results, Start date: 07/18/16 10:17:00 HAND ALTERATIONS TAILOR, Duration : 30 day, Stop date: 08/17/16 10:16:00 HAND ALTERATIONS TAILOR Notes: Roll in palms of hands gently; Do not shake vigorously. (Same as: NovoLOG)"single patient use only"WASTE: F/P - Black; E - Municipal Trash Bin Stable for 28 days at room temperature.Expires in days from Date Start Date: 07/18/16 Stop Date: 07/21/16 Status: Discontinuedinsulin aspart 8 unit, 0.08 mL, Route: SUB-Q, Drug form: SOLN, TID-Before Meals, Dosing Weight 105, kg, PRN Blood Glucose Results, Start date: 07/18/16 10:17:00 HAND ALTERATIONS TAILOR, Duration : 30 day, Stop date: 08/17/16 10:16:00 HAND ALTERATIONS TAILOR Notes: Roll in palms of hands gently; Do not shake vigorously. (Same as: NovoLOG)"single patient use only"WASTE: F/P - Black; E - Municipal Trash Bin Stable for 28 days at room temperature.Expires in days from Date Start Date: 07/18/16 Stop Date: 07/21/16 Status: Discontinuedinsulin aspart 6 unit, 0.06 mL, Route: SUB-Q, Drug form: SOLN, TID-Before Meals, Dosing Weight 105, kg, PRN Blood Glucose Results, Start date: 07/18/16 10:17:00 HAND ALTERATIONS TAILOR, Duration : 30 day, Stop date: 08/17/16 10:16:00 HAND ALTERATIONS TAILOR Notes: Roll in palms of hands gently; Do not shake vigorously. (Same as: NovoLOG)"single patient use only"WASTE: F/P - Black; E - Municipal Trash Bin Stable for 28 days at room temperature.Expires in days from Date Start Date: 07/18/16 Stop Date: 07/21/16 Status: Discontinuedinsulin aspart 4 unit, 0.04 mL, Route: SUB-Q, Drug form: SOLN, TID-Before Meals, Dosing Weight 105, kg, PRN Blood Glucose Results, Start date: 07/18/16 10:17:00 HAND ALTERATIONS TAILOR, Duration : 30 day, Stop date: 08/17/16 10:16:00 HAND ALTERATIONS TAILOR Notes: Roll in palms of hands gently; Do not shake vigorously. (Same as: NovoLOG)"single patient use only"WASTE: F/P - Black; E - Municipal Trash Bin Stable for 28 days at room temperature.Expires in days from Date Start Date: 07/18/16 Stop Date: 07/21/16 Status: Discontinuedinsulin aspart 100 units/mL subcutaneous solution 10 unit, SUB-Q, TID-Before Meals, # 10 mL, 0 Refill(s) Start Date: 07/21/16 Stop Date: 08/20/16 Status: Orderedinsulin detemir 35 unit, SUB-Q, QPM, 0 Refill(s) Start Date: 07/11/16 Stop Date: 07/21/16 Status: Discontinuedinsulin detemir 65 unit, Route: SUB-Q, Drug form: SOLN, Q12H, Dosing Weight 105, kg, Start date : 07/11/16 21:00:00 HAND ALTERATIONS TAILOR, Duration: 30 day, Stop date: 08/10/16 9:00:00 HAND ALTERATIONS TAILOR Notes: Same as LevemirDo not hold insulin without contacting prescriberWASTE: F/ P - Black; E - Municipal Trash Bin "single patient use only" Start Date: 07/11/16 Stop Date: 07/14/16 Status: Voided With Resultsinsulin detemir 65 unit, SUB-Q, QAM, 0 Refill(s) Start Date: 07/11/16 Stop Date: 07/21/16 Status: Discontinuedinsulin detemir 35 unit, 0.35 mL, Route: SUB-Q, Drug form: SOLN, Q12H, Dosing Weight 105, kg, Start date: 07/17/16 21:00:00 HAND ALTERATIONS TAILOR, Stop date: 08/16/16 9:00:00 HAND ALTERATIONS TAILOR Notes: Same as LevemirDo not hold insulin without contacting prescriberWASTE: F/ P - Black; E - [facility] Trash Bin "single patient use only" Start Date: 07/17/16 Stop Date: 07/21/16 Status: Discontinuedinsulin detemir 60 unit, 0.6 mL, Route: SUB-Q, Drug form: SOLN, Q12H, Dosing Weight 105, kg, Start date: 07/16/16 10:30:00 HAND ALTERATIONS TAILOR, Stop date: 08/15/16 9:00:00 HAND ALTERATIONS TAILOR Notes: Same as LevemirDo not hold insulin without contacting prescriberWASTE: F/ P - Black; E - [facility] Trash Bin "single patient use only" Start Date: 07/16/16 Stop Date: 07/17/16 Status: Discontinuedinsulin detemir 20 unit, 0.2 mL, Route: SUB-Q, Drug form: SOLN, ONCE, Dosing Weight 105, kg, Start date: 07/14/16 10:49:00 HAND ALTERATIONS TAILOR, Stop date: 07/14/16 10:49:00 HAND ALTERATIONS TAILOR Notes: Same as LevemirDo not hold insulin without contacting prescriberWASTE: F/ P - Christian; E - Municipal Trash Bin "single patient use only" Start Date: 07/14/16 Stop Date: 07/14/16 Status: Completedinsulin detemir 100 units/mL subcutaneous solution 35 unit, SUB-Q, Q12H, # 10 mL, 0 Refill(s) Start Date: 07/21/16 Stop Date: 08/20/16 Status: OrderedInsulin regular 12 unit, 0.12 mL, Route: SUB-Q, Drug form: SOLN, PRN, Dosing Weight 105.909, kg , PRN Abnormal Lab Result, Start date: 07/10/16 3:23:00 HAND ALTERATIONS TAILOR, Duration: 30 day, Stop date: 08/09/16 3:22:00 HAND ALTERATIONS TAILOR, For FSBG >=200 mg/dL Notes: (Same as: Humulin R) Roll in palms of hands gently; Do not shake vigorously. "single patientuse only"(Restricted to patients requiring a dose > 60 units)WASTE: F/P - Black; E - [facility] Trash [facility] Stable for 28 days at room temperatureExpires in days from Date Start Date: 07/10/16 Stop Date: 07/10/16 Status: DiscontinuedInsulin regular 8 unit, 0.08 mL, Route: SUB-Q, Drug form: SOLN, PRN, Dosing Weight 105.909, kg, PRN Abnormal Lab Result, Start date: 07/10/16 3:23:00 HAND ALTERATIONS TAILOR, Duration: 30 day, Stop date: 08/09/16 3:22:00 HAND ALTERATIONS TAILOR, For FSBG 175 mg/dL - 199 mg/dL Notes: (Same as: Humulin R) Roll in palms of hands gently; Do not shake vigorously. "single patientuse only"(Restricted to patients requiring a dose > 60 units)WASTE: F/P - Black; E - [facility] Trash [facility] Stable for 28 days at room temperatureExpires in days from Date Start Date: 07/10/16 Stop Date: 07/10/16 Status: DiscontinuedInsulin regular 5 unit, 0.05 mL, Route: SUB-Q, Drug form: SOLN, PRN, Dosing Weight 105.909, kg, PRN Abnormal Lab Result, Start date: 07/10/16 3:23:00 HAND ALTERATIONS TAILOR, Duration: 30 day, Stop date: 08/09/16 3:22:00 HAND ALTERATIONS TAILOR, For FSBG 150 mg/dL - 174 mg/dL Notes: (Same as: Humulin R) Roll in palms of hands gently; Do not shake vigorously. "single patientuse only"(Restricted to patients requiring a dose > 60 units)WASTE: F/P - Black; E - [facility] Trash Bin Stable for 28 days at room temperatureExpires in days from Date Start Date: 07/10/16 Stop Date: 07/10/16 Status: DiscontinuedInsulin regular 15 unit, 0.15 mL, Route: SUB-Q, Drug form: SOLN, PRN, Dosing Weight 105, kg, PRN Abnormal Lab Result, Start date: 07/16/16 9:47:00 HAND ALTERATIONS TAILOR, Stop date: 08/15/16 9 :46:00 HAND ALTERATIONS TAILOR, For FSBG >=200 mg/dL Notes: (Same as: Humulin R) Roll in palms of hands gently; Do not shake vigorously. "single patientuse only"(Restricted to patients requiring a dose > 60 units)WASTE: F/P - Black; E - [facility] Trash [facility] Stable for 28 days at room temperatureExpires in days from Date Start Date: 07/16/16 Stop Date: 07/17/16 Status: DiscontinuedInsulin regular 8 unit, 0.08 mL, Route: SUB-Q, Drug form: SOLN, PRN, Dosing Weight 105, kg, PRN Abnormal Lab Result,Start date: 07/16/16 9:47:00 HAND ALTERATIONS TAILOR, Stop date: 08/15/16 9:46: 00 HAND ALTERATIONS TAILOR, For FSBG 150 mg/dL - 174 mg/dL Notes: (Same as: Humulin R) Roll in palms of hands gently; Do not shake vigorously. "single patientuse only"(Restricted to patients requiring a dose > 60 units)WASTE: F/P - Black; E - [facility] Trash Bin Stable for 28 days at room temperatureExpires in days from Date Start Date: 07/16/16 Stop Date: 07/17/16 Status: DiscontinuedInsulin regular 12 unit, 0.12 mL, Route: SUB-Q, Drug form: SOLN, PRN, Dosing Weight 105, kg, PRN Abnormal Lab Result, Start date: 07/16/16 9:47:00 HAND ALTERATIONS TAILOR, Stop date: 08/15/16 9 :46:00 HAND ALTERATIONS TAILOR, For FSBG 175 mg/dL - 199 mg/dL Notes: (Same as: Humulin R) Roll in palms of hands gently; Do not shake vigorously. "single patientuse only"(Restricted to patients requiring a dose > 60 units)WASTE: F/P - Black; E - [facility] Trash Bin Stable for 28 days at room temperatureExpires in days from Date Start Date: 07/16/16 Stop Date: 07/17/16 Status: DiscontinuedInsulin regular 3 unit, 0.03 mL, Route: SUB-Q, Drug form: SOLN, TID-Before Meals, Dosing Weight 105, kg, PRN Blood Glucose Results, Start date: 07/17/16 14:49:00 HAND ALTERATIONS TAILOR, Duration : 30 day, Stop date: 08/16/16 14:48:00 HAND ALTERATIONS TAILOR Notes: (Same as: Humulin R) Roll in palms of hands gently; Do not shake vigorously. "single patientuse only"(Restricted to patients requiring a dose > 60 units)WASTE: F/P - Black; E - [facility] Trash [facility] Stable for 28 days at room temperatureExpires in days from Date Start Date: 07/17/16 Stop Date: 07/18/16 Status: DiscontinuedInsulin regular 12 unit, 0.12 mL, Route: SUB-Q, Drug form: SOLN, TID-Before Meals, Dosing Weight 105, kg, PRN Blood Glucose Results, Start date: 07/17/16 14:49:00 HAND ALTERATIONS TAILOR, Duration: 30 day, Stop date: 08/16/16 14:48:00 HAND ALTERATIONS TAILOR Notes: (Same as: Humulin R) Roll in palms of hands gently; Do not shake vigorously. "single patientuse only"(Restricted to patients requiring a dose > 60 units)WASTE: F/P - Black; E - [facility] Trash Bin Stable for 28 days at room temperatureExpires in days from Date Start Date: 07/17/16 Stop Date: 07/18/16 Status: DiscontinuedInsulin regular 15 unit, 0.15 mL, Route: SUB-Q, Drug form: SOLN, TID-Before Meals, Dosing Weight 105, kg, PRN Blood Glucose Results, Start date: 07/17/16 14:49:00 HAND ALTERATIONS TAILOR, Duration: 30 day, Stop date: 08/16/16 14:48:00 HAND ALTERATIONS TAILOR Notes: (Same as: Humulin R) Roll in palms of hands gently; Do not shake vigorously. "single patientuse only"(Restricted to patients requiring a dose > 60 units)WASTE: F/P - Black; E - [facility] Trash Bin Stable for 28 days at room temperatureExpires in days from Date Start Date: 07/17/16 Stop Date: 07/18/16 Status: DiscontinuedInsulin regular 6 unit, 0.06 mL, Route: SUB-Q, Drug form: SOLN, TID-Before Meals, Dosing Weight 105, kg, PRN Blood Glucose Results, Start date: 07/17/16 14:49:00 HAND ALTERATIONS TAILOR, Duration : 30 day, Stop date: 08/16/16 14:48:00 HAND ALTERATIONS TAILOR Notes: (Same as: Humulin R) Roll in palms of hands gently; Do not shake vigorously. "single patientuse only"(Restricted to patients requiring a dose > 60 units)WASTE: F/P - Black; E - [facility] Trash Bin Stable for 28 days at room temperatureExpires in days from Date Start Date: 07/17/16 Stop Date: 07/18/16 Status: DiscontinuedInsulin regular 9 unit, 0.09 mL, Route: SUB-Q, Drug form: SOLN, TID-Before Meals, Dosing Weight 105, kg, PRN Blood Glucose Results, Start date: 07/17/16 14:49:00 HAND ALTERATIONS TAILOR, Duration : 30 day, Stop date: 08/16/16 14:48:00 HAND ALTERATIONS TAILOR Notes: (Same as: Humulin R) Roll in palms of hands gently; Do not shake vigorously. "single patientuse only"(Restricted to patients requiring a dose > 60 units)WASTE: F/P - Black; E - [facility] Trash Bin Stable for 28 days at room temperatureExpires in days from Date Start Date: 07/17/16 Stop Date: 07/18/16 Status: DiscontinuedInsulin regular 2 unit, 0.02 mL, Route: SUB-Q, Drug form: SOLN, Bedtime, Dosing Weight 105, kg, PRN Blood Glucose Results, Start date: 07/17/16 22:27:00 HAND ALTERATIONS TAILOR, Duration: 30 day, Stop date: 08/16/16 22:26:00 HAND ALTERATIONS TAILOR Notes: (Same as: Humulin R) Roll in palms of hands gently; Do not shake vigorously. "single patientuse only"(Restricted to patients requiring a dose > 60 units)WASTE: F/P - Black; E - [facility] Trash Bin Stable for 28 days at room temperatureExpires in days from Date Start Date: 07/17/16 Stop Date: 07/18/16 Status: DiscontinuedInsulin regular 1 unit, 0.01 mL, Route: SUB-Q, Drug form: SOLN, Bedtime, Dosing Weight 105, kg, PRN Blood Glucose Results, Start date: 07/17/16 22:27:00 HAND ALTERATIONS TAILOR, Duration: 30 day, Stop date: 08/16/16 22:26:00 HAND ALTERATIONS TAILOR Notes: (Same as: Humulin R) Roll in palms of hands gently; Do not shake vigorously. "single patientuse only"(Restricted to patients requiring a dose > 60 units)WASTE: F/P - Black; E - [facility] Trash Bin Stable for 28 days at room temperatureExpires in days from Date Start Date: 07/17/16 Stop Date: 07/18/16 Status: DiscontinuedInsulin regular 3 unit, 0.03 mL, Route: SUB-Q, Drug form: SOLN, Bedtime, Dosing Weight 105, kg, PRN Blood Glucose Results, Start date: 07/17/16 22:27:00 HAND ALTERATIONS TAILOR, Duration: 30 day, Stop date: 08/16/16 22:26:00 HAND ALTERATIONS TAILOR Notes: (Same as: Humulin R) Roll in palms of hands gently; Do not shake vigorously. "single patientuse only"(Restricted to patients requiring a dose > 60 units)WASTE: F/P - Black; E - [facility] Trash Bin Stable for 28 days at room temperatureExpires in days from Date Start Date: 07/17/16 Stop Date: 07/18/16 Status: DiscontinuedInsulin regular 4 unit, 0.04 mL, Route: SUB-Q, Drug form: SOLN, Bedtime, Dosing Weight 105, kg, PRN Blood Glucose Results, Start date: 07/17/16 22:27:00 HAND ALTERATIONS TAILOR, Duration: 30 day, Stop date: 08/16/16 22:26:00 HAND ALTERATIONS TAILOR Notes: (Same as: Humulin R) Roll in palms of hands gently; Do not shake vigorously. "single patientuse only"(Restricted to patients requiring a dose > 60 units)WASTE: F/P - Black; E - Municipal Trash Bin Stable for 28 days at room temperatureExpires in days from Date Start Date: 07/17/16 Stop Date: 07/18/16 Status: DiscontinuedInsulin regular 8 unit, 0.08 mL, Route: SUB-Q, Drug form: SOLN, PRN, Dosing Weight 105, kg, PRN Abnormal Lab Result,Start date: 07/12/16 1:37:00 HAND ALTERATIONS TAILOR, Duration: 30 day, Stop date: 08/11/16 1:36:00 HAND ALTERATIONS TAILOR, For FSBG 175 mg/dL - 199 mg/dL Notes: (Same as: Humulin R) Roll in palms of hands gently; Do not shake vigorously. "single patientuse only"(Restricted to patients requiring a dose > 60 units)WASTE: F/P - Black; E - [facility] Trash Bin Stable for 28 days at room temperatureExpires in days from Date Start Date: 07/12/16 Stop Date: 07/13/16 Status: DiscontinuedInsulin regular 5 unit, 0.05 mL, Route: SUB-Q, Drug form: SOLN, PRN, Dosing Weight 105, kg, PRN Abnormal Lab Result,Start date: 07/12/16 1:37:00 HAND ALTERATIONS TAILOR, Duration: 30 day, Stop date: 08/11/16 1:36:00 HAND ALTERATIONS TAILOR, For FSBG 150 mg/dL - 174 mg/dL Notes: (Same as: Humulin R) Roll in palms of hands gently; Do not shake vigorously. "single patientuse only"(Restricted to patients requiring a dose > 60 units)WASTE: F/P - Black; E - Municipal Trash Bin Stable for 28 days at room temperatureExpires in days from Date Start Date: 07/12/16 Stop Date: 07/13/16 Status: DiscontinuedInsulin regular 12 unit, 0.12 mL, Route: SUB-Q, Drug form: SOLN, PRN, Dosing Weight 105, kg, PRN Abnormal Lab Result, Start date: 07/12/16 1:37:00 HAND ALTERATIONS TAILOR, Duration: 30 day, Stop date: 08/11/16 1:36:00 HAND ALTERATIONS TAILOR, For FSBG >=200 mg/dL Notes: (Same as: Humulin R) Roll in palms of hands gently; Do not shake vigorously. "single patientuse only"(Restricted to patients requiring a dose > 60 units)WASTE: F/P - Black; E - Municipal Trash Bin Stable for 28 days at room temperatureExpires in days from Date Start Date: 07/12/16 Stop Date: 07/13/16 Status: DiscontinuedInsulin regular 10 unit, 0.1 mL, Route: SUB-Q, Drug form: SOLN, ONCE, Dosing Weight 105.909, kg , Priority: STAT, Start date: 07/10/16 2:08:00 HAND ALTERATIONS TAILOR, Stop date: 07/10/16 2:08:00 HAND ALTERATIONS TAILOR Notes: (Same as: Humulin R) Roll in palms of hands gently; Do not shake vigorously. "single patientuse only"(Restricted to patients requiring a dose > 60 units)WASTE: F/P - Black; E - Municipal Trash Bin Stable for 28 days at room temperatureExpires in days from Date Start Date: 07/10/16 Stop Date: 07/10/16 Status: CompletedInsulin regular 18 unit, 0.18 mL, Route: SUB-Q, Drug form: SOLN, PRN, Dosing Weight 105, kg, PRN Abnormal Lab Result, Start date: 07/16/16 10:34:00 HAND ALTERATIONS TAILOR, Duration: 30 day, Stop date: 08/15/16 10:33:00 HAND ALTERATIONS TAILOR Notes: (Same as: Humulin R) Roll in palms of hands gently; Do not shake vigorously. "single patientuse only"(Restricted to patients requiring a dose > 60 units)WASTE: F/P - Black; E - Municipal Trash Bin Stable for 28 days at room temperatureExpires in days from Date Start Date: 07/16/16 Stop Date: 07/17/16 Status: DiscontinuedInsulin regular 100 unit + sodium chloride 0.9% INJ 100 mL 100 mL, Rate: Start at 4 units/hr and Titrate, Dosing Weight 105, kg, Route: IVPB, Total Volume: 101, Start Date: 07/10/16 5:33:00 HAND ALTERATIONS TAILOR, Duration: 30 day, Stop date: 08/09/16 5:32:00 HAND ALTERATIONS TAILOR, Replace Every:24 hr Notes: (Same as: Humulin R and NovoLIN R)WASTE: F/P - Black; E - Municipal Trash Bin (Do not shake) Start Date: 07/10/16 Stop Date: 07/12/16 Status: DiscontinuedInsulin regular 100 unit + sodium chloride 0.9% INJ 99 mL 99 mL, Rate: Start at 4 units/hr and Titrate, Dosing Weight 105, kg, Route: IVPB , Total Volume: 100,Start Date: 07/13/16 23:19:00 HAND ALTERATIONS TAILOR, Duration: 30 day, Stop date: 08/12/16 23:18:00 HAND ALTERATIONS TAILOR, Replace Every: 24 hr Notes: (Same as: Humulin R and NovoLIN R)WASTE: F/P - Black; E - Municipal Trash Bin (Do not shake) Start Date: 07/13/16 Stop Date: 07/17/16 Status: Discontinuedipratropium 0.02% inhalation solution 0.5 mg=2.5 mL, NEB, Q6H, PRN Wheezing, # 300 mL, 0 Refill(s) Start Date: 07/21/16 Stop Date: 08/20/16 Status: Orderedipratropium 0.02% inhalation solution 0.5 mg, NEB, Q6H, PRN wheezing, # 25 ea, 0 Refill(s) Start Date: 07/11/16 Stop Date: 07/21/16 Status: Discontinuedipratropium 0.02% inhalation solution 0.5 mg, 2.5 mL, Route: NEB, Drug form: SOLN, Q6H, Dosing Weight 105, kg, PRN Wheezing, Start date: 07/13/16 8:35:00 HAND ALTERATIONS TAILOR, Duration: 30 day, Stop date: 8:34:00 HAND ALTERATIONS TAILOR Notes: SEE RT DOCUMENTATION(Same as:Atrovent) Start Date: 07/13/16 Stop Date: 07/21/16 Status: Discontinuedisosorbide dinitrate 20 mg, 1 tab, Route: PO, Drug form: TAB, Q6H, Dosing Weight 105, kg, Start date : 07/14/16 18:00:00 HAND ALTERATIONS TAILOR, Stop date: 08/13/16 16:00:00 HAND ALTERATIONS TAILOR Notes: (Same as:Isordil) Take on empty stomach/ full glass of water Start Date: 07/14/16 Stop Date: 07/21/16 Status: Discontinuedisosorbide dinitrate 20 mg oral tablet 20 mg=1 tab, PO, Q6H, # 120 tab, 0 Refill(s) Start Date: 07/21/16 Stop Date: 08/20/16 Status: Orderedisosorbide dinitrate 20 mg oral tablet 20 mg=1 tab, PO, Q6H, # 360 tab, 0 Refill(s) Start Date: 07/11/16 Stop Date: 07/21/16 Status: DiscontinuedKaopectate 30 mL, Route: PO, Drug Form: SUSP, Dosing Weight 105, kg, Q6H, Start date: 07/19 13:00:00 HAND ALTERATIONS TAILOR, Duration: 30 day, Stop date: 08/18/16 12:00:00 HAND ALTERATIONS TAILOR Notes: Shake well. (Same As: Pepto Bismol or Kaopectate) Start Date: 07/19/16 Stop Date: 07/20/16 Status: DiscontinuedKaopectate 30 mL, Route: PO, Drug Form: SUSP, Dosing Weight 105, kg, Q12H, Start date: 21:00:00 HAND ALTERATIONS TAILOR, Duration: 30 day, Stop date: 08/19/16 9:00:00 HAND ALTERATIONS TAILOR Notes: Shake well. (Same As: Pepto Bismol or Kaopectate) Start Date: 07/20/16 Stop Date: 07/21/16 Status: Discontinuedlabetalol 20 mg, 4 mL, Route: IV, Drug form: INJ, ONCE, Dosing Weight 105, kg, Start date : 07/13/16 23:20:00 HAND ALTERATIONS TAILOR, Stop date: 07/13/16 23:20:00 HAND ALTERATIONS TAILOR Start Date: 07/13/16 Stop Date: 07/14/16 Status: Completedlabetalol 10 mg, 2 mL, Route: IVP, Drug form: INJ, Q4H, Dosing Weight 105, kg, PRN Hypertension, Start date: 07/14/16 16:12:00 HAND ALTERATIONS TAILOR, Duration: 30 day, Stop date: 16:11:00 HAND ALTERATIONS TAILOR Start Date: 07/14/16 Stop Date: 07/21/16 Status: DiscontinuedLactated Ringers 1,000 mL 1,000 mL, Rate: 40 ml/hr, Infuse over: 25 hr, Route: IV, Dosing Weight 105 kg, Total Volume: 1,000, Start date: 07/17/16 14:52:00 HAND ALTERATIONS TAILOR, Duration: 30 day, Stop date: 08/16/16 14:51:00 HAND ALTERATIONS TAILOR Start Date: 07/17/16 Stop Date: 07/18/16 Status: DiscontinuedLasix 40 mg, 4 mL, Route: IVP, Drug form: INJ, ONCE, Dosing Weight 105, kg, Start date : 07/12/16 22:42:00 HAND ALTERATIONS TAILOR, Stop date: 07/12/16 22:42:00 HAND ALTERATIONS TAILOR Notes: (Same as: Lasix) MEDICATION WASTE Product Size: 40 mgProduct Wasted: ___ mg Start Date: 07/12/16 Stop Date: 07/12/16 Status: CompletedLasix 30 mg, 3 mL, Route: PO, Drug form: SOLN, Q12H, Dosing Weight 105, kg, Start date : 07/17/16 9:00:00 HAND ALTERATIONS TAILOR, Stop date: 08/15/16 21:00:00 HAND ALTERATIONS TAILOR Notes: (Same as: Lasix) May cause GI upset. Give with food or milk. Start Date: 07/17/16 Stop Date: 07/21/16 Status: DiscontinuedLasix 20 mg oral tablet 60 mg, 3 tab, Route: NG, Drug form: TAB, Q12H, Dosing Weight 105, kg, Start date : 07/13/16 9:00:00 HAND ALTERATIONS TAILOR, Duration: 30 day, Stop date: 08/11/16 21:00:00 HAND ALTERATIONS TAILOR Notes: (Same as: Lasix) May cause GI upset. Give with food or milk. Start Date: 07/13/16 Stop Date: 07/17/16 Status: DiscontinuedLevemir FlexPen 80 unit, 0.8 mL, Route: SUB-Q, Drug form: INJ, Q12H, Start date: 07/15/16 9:00: 00 HAND ALTERATIONS TAILOR, Duration: 30 day, Stop date: 08/13/16 21:00:00 HAND ALTERATIONS TAILOR Notes: Same as LevemirDo not hold insulin without contacting prescriberWASTE: F/ P - Black; E - Municipal Trash Bin "single patient use only" Start Date: 07/15/16 Stop Date: 07/16/16 Status: DiscontinuedLevemir FlexPen 80 unit, Route: SUB-Q, Drug form: SOLN, Q12H, Start date: 07/14/16 21:00:00 HAND ALTERATIONS TAILOR , Duration: 30 day, Stop date: 08/13/16 9:00:00 HAND ALTERATIONS TAILOR Notes: Same as LevemirDo not hold insulin without contacting prescriberWASTE: F/ P - Black; E - Municipal Trash Bin "single patient use only" Start Date: 07/14/16 Stop Date: 07/15/16 Status: Voided With ResultsLevophed Bitartrate 8 mg + sodium chloride 0.9% INJ 242 mL 242 mL, Rate: TITRATE, Route: IV, Dosing Weight 105 kg, Total Volume: 250, Start date: 07/10/16 13:48:00 HAND ALTERATIONS TAILOR, Duration: 30 day, Stop date: 08/09/16 13:47: 00 HAND ALTERATIONS TAILOR Notes: Not for direct administration - DILUTE. Protect from light. (Same as: Levophed). Administer byeither central venous catheter or peripherally-inserted central catheter (PICC) line. Start Date: 07/10/16 Stop Date: 07/12/16 Status: Discontinuedloperamide 2 mg, 10 mL, Route: PO, Drug form: LIQ, ONCE, Dosing Weight 105, kg, Start date : 07/19/16 11:59:00 HAND ALTERATIONS TAILOR, Stop date: 07/19/16 11:59:00 HAND ALTERATIONS TAILOR Notes: Same as Imodium Start Date: 07/19/16 Stop Date: 07/19/16 Status: Completedloperamide 2 mg, 10 mL, Route: PO, Drug form: LIQ, Q8H, Dosing Weight 105, kg, Start date: 07/15/16 8:00:00 HAND ALTERATIONS TAILOR, Stop date: 07/19/16 6:00:00 HAND ALTERATIONS TAILOR Notes: Same as Imodium Start Date: 07/15/16 Stop Date: 07/19/16 Status: Completedloperamide 1 mg, Route: PO, Drug form: LIQ, Q8H, Dosing Weight 105, kg, Start date: 16:00:00 HAND ALTERATIONS TAILOR, Duration: 2 day, Stop date: 07/16/16 8:00:00 HAND ALTERATIONS TAILOR Start Date: 07/14/16 Stop Date: 07/14/16 Status: Canceledloperamide 1 mg, 5 mL, Route: PO, Drug form: LIQ, Q8H, Dosing Weight 105, kg, Priority: NOW , Start date: 07/14/16 13:00:00 HAND ALTERATIONS TAILOR, Duration: 2 day, Stop date: 07/16/16 8:00: 00 HAND ALTERATIONS TAILOR Notes: Same as Imodium Start Date: 07/14/16 Stop Date: 07/15/16 Status: DiscontinuedLopressor 75 mg, 3 tab, Route: NG, Drug form: TAB, Q12H, Start date: 07/14/16 21:00:00 HAND ALTERATIONS TAILOR , Duration: 30 day, Stop date: 08/13/16 9:00:00 HAND ALTERATIONS TAILOR Notes: (Same as: Lopressor) Start Date: 07/14/16 Stop Date: 07/14/16 Status: CanceledLopressor 25 mg, 1 tab, Route: NG, Drug form: TAB, ONCE, Start date: 07/14/16 10:54:00 HAND ALTERATIONS TAILOR , Stop date: 07/14/16 10:54:00 HAND ALTERATIONS TAILOR Notes: (Same as: Lopressor) Start Date: 07/14/16 Stop Date: 07/14/16 Status: CompletedLopressor 100 mg, 10 mL, Route: PO, Drug form: LIQ, Q12H, Start date: 07/14/16 21:00:00 HAND ALTERATIONS TAILOR, Stop date: 08/13/16 9:00:00 HAND ALTERATIONS TAILOR Notes: (Same as: Lopressor) For oral use only. Refrigerate. Shake well. Compounded Product - formulation not commercially available Start Date: 07/14/16 Stop Date: 07/21/16 Status: Discontinuedlosartan 50 mg, 1 tab, Route: PO, Drug form: TAB, ONCE, Dosing Weight 105, kg, Priority: STAT, Start date: 07/16/16 16:27:00 HAND ALTERATIONS TAILOR, Stop date: 07/16/16 16:27:00 HAND ALTERATIONS TAILOR Notes: (Same as: Cozaar) Start Date: 07/16/16 Stop Date: 07/16/16 Status: Completedlosartan 100 mg, 2 tab, Route: PO, Drug form: TAB, Daily, Dosing Weight 105, kg, Start date: 07/17/16 20:00:00 HAND ALTERATIONS TAILOR, Stop date: 08/15/16 20:00:00 HAND ALTERATIONS TAILOR Notes: (Same as: Carey) Start Date: 07/17/16 Stop Date: 07/21/16 Status: Discontinuedlosartan 50 mg, 1 tab, Route: PO, Drug form: TAB, Daily, Dosing Weight 105, kg, Start date: 07/15/16 9:00:00 HAND ALTERATIONS TAILOR, Duration: 30 day, Stop date: 08/13/16 9:00:00 HAND ALTERATIONS TAILOR Notes: (Same as: Carey) Start Date: 07/15/16 Stop Date: 07/14/16 Status: Canceledlosartan 50 mg, 1 tab, Route: PO, Drug form: TAB, Daily, Dosing Weight 105, kg, Start date: 07/14/16 15:57:00CST, Duration: 30 day, Stop date: 08/13/16 20:00:00 HAND ALTERATIONS TAILOR Notes: (Same as: Carey) Start Date: 07/14/16 Stop Date: 07/17/16 Status: Discontinuedlosartan 100 mg oral tablet 100 mg=1 tab, PO, Daily, # 30 tab, 0 Refill(s) Start Date: 07/11/16 Stop Date: 07/21/16 Status: Discontinuedlosartan 50 mg oral tablet 100 mg=2 tab, PO, Daily, # 60 tab, 0 Refill(s) Start Date: 07/21/16 Stop Date: 08/20/16 Status: OrderedLovenox 40 mg, 0.4 mL, Route: SUB-Q, Drug form: INJ, Q12H, Dosing Weight 105, kg, Start date: 07/10/16 9:00:00 HAND ALTERATIONS TAILOR, Duration: 30 day, Stop date: 08/09/16 4:00:00 HAND ALTERATIONS TAILOR Notes: (Same as: Parisnox) Start Date: 07/10/16 Stop Date: 07/10/16 Status: Discontinuedmagnesium oxide 420 mg oral tablet PO, Daily, 0 Refill(s) Start Date: 07/11/16 Status: Orderedmagnesium sulfate 2 gm, 50 mL, Route: IVPB, Drug form: INJ, ONCE, Dosing Weight 105, kg, Total dose=2 gm, Start date: 07/14/16 2:21:00 HAND ALTERATIONS TAILOR, Duration: 1 doses or times, Stop date: 07/14/16 2:21:00 HAND ALTERATIONS TAILOR Notes: WASTE: F/P - Sink; E - Municipal Trash Bin Start Date: 07/14/16 Stop Date: 07/14/16 Status: Completedmetoprolol 5 mg/5 ml INJ 5 mg, 5 mL, Route: IV, Drug form: INJ, ONCE, Dosing Weight 105, kg, Start date: 07/13/16 8:00:00 HAND ALTERATIONS TAILOR, Stop date: 07/13/16 8:00:00 HAND ALTERATIONS TAILOR Notes: (Same as: Lopressor)Push over 2 minutes Start Date: 07/13/16 Stop Date: 07/13/16 Status: Completedmetoprolol 5 mg/5 ml INJ 5 mg, 5 mL, Route: IV, Drug form: INJ, ONCE, Dosing Weight 105, kg, Start date: 07/15/16 5:52:00 HAND ALTERATIONS TAILOR, Stop date: 07/15/16 5:52:00 HAND ALTERATIONS TAILOR Notes: (Same as: Lopressor)Push over 2 minutes Start Date: 07/15/16 Stop Date: 07/15/16 Status: Completedmetoprolol 5 mg/5 ml INJ 5 mg, Route: IV, ONCE, Dosing Weight 105, kg, Priority: STAT, Start date: 19:40:00 HAND ALTERATIONS TAILOR, Stop date: 07/15/16 19:40:00 HAND ALTERATIONS TAILOR Start Date: 07/15/16 Stop Date: 07/15/16 Status: Completedmetoprolol 5 mg/5 ml INJ 5 mg, Route: IV, ONCE, Dosing Weight 105, kg, Start date: 07/12/16 21:46:00 HAND ALTERATIONS TAILOR , Stop date: 07/12/1621:46:00 HAND ALTERATIONS TAILOR Start Date: 07/12/16 Stop Date: 07/12/16 Status: Completedmetoprolol 5 mg/5 ml INJ 5 mg, 5 mL, Route: IVP, Drug form: INJ, ONCE, Dosing Weight 105.909, kg, Priority: STAT, Start date:07/10/16 1:37:00 HAND ALTERATIONS TAILOR, Stop date: 07/10/16 1:37:00 HAND ALTERATIONS TAILOR Notes: (Same as: Lopressor)Push over 2 minutes Start Date: 07/10/16 Stop Date: 07/10/16 Status: Completedmetoprolol 5 mg/5 ml INJ 5 mg, 5 mL, Route: IV, Drug form: INJ, ONCE, Dosing Weight 105, kg, Priority: STAT, Start date: 07/15/16 19:13:00 HAND ALTERATIONS TAILOR, Stop date: 07/15/16 19:13:00 HAND ALTERATIONS TAILOR Notes: (Same as: Lopressor)Push over 2 minutes Start Date: 07/15/16 Stop Date: 07/15/16 Status: Completedmetoprolol 5 mg/5 ml INJ 5 mg, Route: IV, Drug form: INJ, ONCE, Dosing Weight 105, kg, Start date: 7:05:00 HAND ALTERATIONS TAILOR, Stopdate: 07/13/16 7:05:00 [employer]ATIONS [employer]IL[employer] Start Date: 07/13/16 Stop Date: 07/13/16 Status: Completedmetoprolol 5 mg/5 ml INJ 5 mg, 5 mL, Route: IV, Drug form: INJ, ONCE, Dosing Weight 105, kg, Priority: STAT, Start date: 07/11/16 2:08:00 [employer]TERATIONS [employer]IL[employer], Stop date: 07/11/16 2:08:00 HAND ALTERATIONS TAILOR Notes: (Same as: Lopressor)Push over 2 minutes Start Date: 07/11/16 Stop Date: 07/11/16 Status: Completedmetoprolol 5 mg/5 ml INJ 5 mg, Route: IV, ONCE, Dosing Weight 105, kg, Start date: 07/13/16 7:05:00 HAND ALTERATIONS TAILOR, Stop date: 07/13/16 7:05:00 HAND ALTERATIONS TAILOR Start Date: 07/13/16 Stop Date: 07/13/16 Status: Completedmetoprolol 5 mg/5 ml INJ 5 mg, Route: IV, ONCE, Dosing Weight 105, kg, Priority: STAT, Start date: 18:34:00 HAND ALTERATIONS TAILOR, Stop date: 07/15/16 18:34:00 HAND ALTERATIONS TAILOR Start Date: 07/15/16 Stop Date: 07/15/16 Status: Completedmetoprolol 5 mg/5 ml INJ 5 mg, Route: IV, ONCE, Dosing Weight 105, kg, Start date: 07/15/16 12:33:00 HAND ALTERATIONS TAILOR , Stop date: 07/15/1612:33:00 HAND ALTERATIONS TAILOR Start Date: 07/15/16 Stop Date: 07/15/16 Status: Completedmetoprolol 5 mg/5 ml INJ 5 mg, 5 mL, Route: IV, Drug form: INJ, ONCE, Dosing Weight 105, kg, Start date: 07/12/16 22:14:00 HAND ALTERATIONS TAILOR, Stop date: 07/12/16 22:14:00 HAND ALTERATIONS TAILOR Notes: (Same as: Lopressor)Push over 2 minutes Start Date: 07/12/16 Stop Date: 07/12/16 Status: Completedmetoprolol 50 mg oral tablet, extended release 50 mg=1 tab, PO, Daily, # 30 tab, 0 Refill(s) Start Date: 07/11/16 Stop Date: 07/21/16 Status: Discontinuedmetoprolol tartrate 25 mg, 1 tab, Route: NG, Drug form: TAB, Q12H, Dosing Weight 105, kg, Start date : 07/11/16 9:00:00 [employer] ALTERATIONS [employer]IL[employer], Duration: 30 day, Stop date: 08/09/16 21:00:00 HAND ALTERATIONS TAILOR Notes: (Same as: Lopressor) Start Date: 07/11/16 Stop Date: 07/13/16 Status: Discontinuedmetoprolol tartrate 25 mg, 1 tab, Route: PO, Drug form: TAB, ONCE, Dosing Weight 105, kg, Start date : 07/14/16 15:02:00 HAND ALTERATIONS [employer]ILOR, Stop date: 07/14/16 15:02:00 HAND ALTERATIONS TAILOR Notes: (Same as: Lopressor) Start Date: 07/14/16 Stop Date: 07/14/16 Status: Completedmetoprolol tartrate 75 mg, Route: NG, Drug form: TAB, Q12H, Dosing Weight 105, kg, Start date: 07/13 9:00:00 HAND ALTERATIONS TAILOR, Duration: 30 day, Stop date: 08/11/16 21:00:00 HAND ALTERATIONS TAILOR Notes: (Same as: Lopressor) Start Date: 07/13/16 Stop Date: 07/14/16 Status: Voided With Resultsmetoprolol tartrate 100 mg oral tablet 100 mg=1 tab, PO, Q12H, # 60 tab, 0 Refill(s) Start Date: 07/21/16 Stop Date: 08/20/16 Status: OrderedMiraLax oral powder for reconstitution 17 gm, PO, Daily, X 31 day, # 527 gm, 0 Refill(s) Start Date: 07/21/16 Stop Date: 08/21/16 Status: OrderedNarcan 0.2 mg, 0.5 mL, Route: IVP, Drug form: INJ, ONCE, Dosing Weight 105, kg, PRN Narcotic Reversal, Start date: 07/12/16 19:34:00 HAND [employer]ATIONS TAILOR Notes: Same as Narcan Start Date: 07/12/16 Stop Date: 07/12/16 Status: CompletedNarcan 1 mg, Route: IVP, ONCE, Dosing Weight 105, kg, PRN Narcotic Reversal, Start date : 07/12/16 19:34:00 [employer]ATIONS [employer]ILOR Start Date: 07/12/16 Stop Date: 07/12/16 Status: DiscontinuedNIFEdipine 30 mg oral tablet, extended release 30 mg, 1 tab, Route: PO, Drug form: ERTAB, Daily, Dosing Weight 105, kg, Start date: 07/17/16 0:30:00 [employer]ATIONS [employer]IL[employer], Duration: 30 day, Stop date: 08/15/16 9:00:00 HAND ALTERATIONS TAILOR Notes: (Same as: Adalat CC, Procardia XL) Give on empty stomach. Take 1 hour before or 2 hours after meal; "Avoid grapefruit and grapefruit juice". Do not crush Start Date: 07/17/16 Stop Date: 07/17/16 Status: DiscontinuedNitrostat 0.4 mg sublingual tablet 0.4 mg=1 tab, SL, Q5Min, PRN Chest Pain, # 100 tab, 0 Refill(s) Start Date: 07/11/16 Status: Orderednorepinephrine 8 mg 8 mg, 250 mL, Rate: Titrate, Start Dose: 0.1 microgram/kg/min, Titration: 0.05 microgram/kg/min every 2 - 5 minutes, Goal(s): MAP >55-60 mmHg, Max Dose: 1 microgram/kg/min, Route: IV, Dosing Weight 105 kg, Total Volume: 250, Start date : 07/10/16 13:10... Start Date: 07/10/16 Stop Date: 07/10/16 Status: DiscontinuedoxyCODONE 5 mg oral tablet 5 mg, 1 tab, Route: PO, Drug form: TAB, Q4H, Dosing Weight 105, kg, PRN Pain Score 4-6, Start date: 07/17/16 7:58:00 [employer]ATIONS [employer], Duration: 30 day, Stop date: 7:57:00 HAND ALTERATIONS TAILOR Notes: (Same as: Roxicodone) Start Date: 07/17/16 Stop Date: 07/17/16 Status: DiscontinuedoxyCODONE 5 mg oral tablet 5 mg, 1 tab, Route: NG, Drug form: TAB, Q6H, Dosing Weight 105, kg, PRN Pain Score 4-6, Start date: 07/11/16 8:54:00 [employer]ATIONS [employer]IL[employer], Duration: 30 day, Stop date: 8:53:00 HAND ALTERATIONS TAILOR Notes: (Same as: Roxicodone) Start Date: 07/11/16 Stop Date: 07/11/16 Status: DiscontinuedoxyCODONE 5 mg oral tablet 5 mg, 1 tab, Route: PO, Drug form: TAB, Q6H, Dosing Weight 105, kg, PRN Pain Score 4-6, Priority: STAT, Start date: 07/11/16 8:59:00 [employer] AL[employer]ATIONS [employer]ILOR, Duration: 30 day, Stop date: 08/10/16 8:58:00 HAND ALTERATIONS TAILOR Notes: (Same as: Roxicodone) Start Date: 07/11/16 Stop Date: 07/12/16 Status: Discontinuedpantoprazole 40 mg, 1 pkt, Route: NG, Drug form: GRAN/REC, Q24H, Dosing Weight 105, kg, Start date: 07/13/16 9:00:00 [employer] AL[employer]ATIONS [employer]IL[employer], Duration: 30 day, Stop date: 08/11/16 9:00:00 HAND ALTERATIONS TAILOR Notes: Same as: Protonix Mix in 5 mL apple juice or applesauce for oral & 10mL apple juice for NG tube Start Date: 07/13/16 Stop Date: 07/21/16 Status: Discontinuedpantoprazole 40 mg oral enteric coated tablet 40 mg=1 tab, PO, Daily, # 30 tab, 0 Refill(s) Start Date: 07/21/16 Stop Date: 08/20/16 Status: Orderedpantoprazole 40 mg oral enteric coated tablet 40 mg=1 tab, PO, Daily, # 30 tab, 0 Refill(s) Start Date: 07/11/16 Stop Date: 07/21/16 Status: DiscontinuedPHOS-NaK 2 pkt, Route: NG, Drug Form: PDR/REC, Dosing Weight 105, kg, Q8H, Start date: 16:00:00 [employer]TERATIONS TAILOR,Duration: 30 day, Stop date: 08/13/16 8:00:00 HAND ALTERATIONS TAILOR Notes: (Same as: Phos-NaK) Each 1.5 gm pkt has 250mg phosphorous. Mix w/2.5oz water and stir. Start Date: 07/14/16 Stop Date: 07/15/16 Status: Discontinuedpotassium chloride 20 mEq, 100 mL, Route: IVPB, Drug form: INJ, ONCE, Start date: 07/15/16 5:50:00 HAND ALTERATIONS TAILOR, Stop date: 07/15/16 5:50:00 HAND ALTERATIONS TAILOR Notes: (Same as: KCL) Infuse no faster than 10 mEq/hr if given peripherally. Start Date: 07/15/16 Stop Date: 07/15/16 Status: Completedpotassium chloride 40 mEq, 30 mL, Route: PO, Drug form: LIQ, Daily, Dosing Weight 105, kg, Start date: 07/13/16 9:00:00CST, Stop date: 08/11/16 9:00:00 HAND ALTERATIONS TAILOR Notes: (Same as: Potassium Chloride) Start Date: 07/13/16 Stop Date: 07/21/16 Status: Discontinuedpotassium chloride 20 mEq, 100 mL, Route: IVPB, Drug form: INJ, Q2H, Dosing Weight 105, kg, Total dose=60 mEq, Start date: 07/17/16 6:00:00 HAND ALTERATIONS TAILOR, Duration: 3 doses or times, Stop date: 07/17/16 10:00:00 HAND ALTERATIONS TAILOR, Central Line Notes: (Same as: KCL) Infuse no faster than 10 mEq/hr if given peripherally. Start Date: 07/17/16 Stop Date: 07/17/16 Status: Completedpotassium chloride 40 mEq, 2 tab, Route: PO, Drug form: ERTAB, ONCE, Dosing Weight 105, kg, Start date: 07/13/16 7:59:00 HAND ALTERATIONS TAILOR, Stop date: 07/13/16 7:59:00 HAND ALTERATIONS TAILOR Notes: (Same as: K-Dur 20)"Do Not Crush" With food and full glass of water Start Date: 07/13/16 Stop Date: 07/13/16 Status: Discontinuedpotassium chloride 20 mEq, 100 mL, Route: IVPB, Drug form: INJ, ONCE, Dosing Weight 105, kg, Start date: 07/15/16 3:47:00 HAND ALTERATIONS TAILOR, Stop date: 07/15/16 3:47:00 HAND ALTERATIONS TAILOR, Central Line Notes: (Same as: KCL) Infuse no faster than 10 mEq/hr if given peripherally. Start Date: 07/15/16 Stop Date: 07/15/16 Status: Completedpotassium chloride 20 mEq/15 mL oral liquid 40 mEq, 30 mL, Route: PO, Drug form: LIQ, ONCE, Dosing Weight 105, kg, Start date: 07/13/16 19:35:00CST, Stop date: 07/13/16 19:35:00 HAND ALTERATIONS TAILOR Notes: (Same as: Potassium Chloride) Start Date: 07/13/16 Stop Date: 07/13/16 Status: Completedpotassium chloride 20 mEq/15 mL oral liquid 20 mEq, 15 mL, Route: PO, ONCE, Dosing Weight 105, kg, Start date: 07/14/16 2:21 :00 HAND ALTERATIONS TAILOR, Stop date: 07/14/16 2:21:00 HAND ALTERATIONS TAILOR Start Date: 07/14/16 Stop Date: 07/14/16 Status: Discontinuedpotassium phosphate + sodium chloride 0.9% INJ 250 mL 18 mmol, 6 mL, Route: IVPB, ONCE, Dosing Weight 105, kg, Start date: 07/15/16 6: 22:00 HAND ALTERATIONS TAILOR, Stop date: 07/15/16 6:22:00 HAND ALTERATIONS TAILOR Notes: (Same as: K Phosphate.) 1 mMol phoshate has 1.47 mEq potassium Infuse over 4 hours Start Date: 07/15/16 Stop Date: 07/15/16 Status: Completedpotassium phosphate + sodium chloride 0.9% INJ 250 mL 30 mmol, 10 mL, Route: IVPB, ONCE, Dosing Weight 105, kg, Start date: 07/14/16 2 :38:00 HAND ALTERATIONS TAILOR, Stop date: 07/14/16 2:38:00 HAND ALTERATIONS TAILOR Notes: (Same as: K Phosphate.) 1 mMol phoshate has 1.47 mEq potassium Infuse over 4 hours Start Date: 07/14/16 Stop Date: 07/14/16 Status: CompletedpredniSONE 20 mg oral tablet 20 mg=1 tab, PO, Daily, # 14 tab, 0 Refill(s) Start Date: 07/11/16 Stop Date: 07/21/16 Status: Discontinuedpropofol INJ 1,000 mg 1,000 mg, 100 mL, Rate: Titrate, Start Dose: 5 microgram/kg/min, Titration: 5 microgram/kg/min every15 minutes, Goal(s): MAP >65, Max Dose: 50 mcg/kg/min, Route: IV, Dosing Weight 105 kg, Total Volume: 100, Start date: 07/10/16 5:34: 00 HAND ALTERATIONS TAILOR, Duration:... Notes: If Diprivan - change bottle & tubing every 12 hrPer state nursing law propofol can only be given by a nurse if patient is intubated or being intubated (unless the nurse is a CROWN ATT[employer]ER). Same as:Diprivan Start Date: 07/10/16 Stop Date: 07/12/16 Status: Discontinuedpsyllium 3.4 gm, 1 pkt, Route: NG, Drug Form: PDR/REC, Dosing Weight 105, kg, Q12H, Start date: 07/14/16 11:00:00 HAND ALTERATIONS TAILOR, Duration: 30 day, Stop date: 08/13/16 9:00: 00 HAND ALTERATIONS TAILOR Notes: (Same as: Metamucil) Mix in 8 oz liquid with meal. Start Date: 07/14/16 Stop Date: 07/21/16 Status: DiscontinuedSaline Flush 0.9% 10 mL, Route: IVP, Drug Form: INJ, Dosing Weight 105.909, kg, PRN, PRN Line Flush, Start date: 07/10/16 0:57:00 HAND ALTERATIONS TAILOR, Duration: 30 day, Stop date: 08/09/16 0 :56:00 HAND ALTERATIONS TAILOR Notes: Same as: BD Posiflush Sterile Start Date: 07/10/16 Stop Date: 07/21/16 Status: DiscontinuedSantyl 1 appl, Route: TOP, BID, Drug form: OINT, apply to "brown" area of wound with each dressing change, Start date: 07/19/16 9:00:00 HAND ALTERATIONS TAILOR, Duration: 30 day, Stop date: 08/17/16 17:00:00 HAND ALTERATIONS TAILOR Notes: (Same As: Santyl) Start Date: 07/19/16 Stop Date: 07/21/16 Status: Discontinuedsenna 8.8 mg, 5 ml, Route: PO, Drug Form: SYRP, Dosing Weight 105, kg, Daily, Start date: 07/13/16 9:00:00CST, Duration: 30 day, Stop date: 08/11/16 9:00:00 HAND ALTERATIONS TAILOR Notes: (Same as: Senokot) Start Date: 07/13/16 Stop Date: 07/14/16 Status: Discontinuedsertraline 150 mg, PO, Daily, 0 Refill(s) Start Date: 07/11/16 Status: Orderedsodium chloride 0.45% 1000 ml INJ 1,000 mL 1,000 mL, Rate: 75 ml/hr, Infuse over: 13.3 hr, Route: IV, Dosing Weight 105 kg , Total Volume: 1,000, Start date: 07/20/16 14:22:00 HAND ALTERATIONS TAILOR, Duration: 30 day, Stop date: 08/19/16 14:21:00 HAND ALTERATIONS TAILOR Start Date: 07/20/16 Stop Date: 07/21/16 Status: Discontinuedsodium chloride 0.45% 1000 ml INJ 1,000 mL 1,000 mL, Rate: 75 ml/hr, Infuse over: 13.3 hr, Route: IV, Dosing Weight 105 kg , Total Volume: 1,000, Start date: 07/20/16 5:00:00 HAND ALTERATIONS TAILOR, Duration: 30 day, Stop date: 08/19/16 4:59:00 HAND ALTERATIONS TAILOR Start Date: 07/20/16 Stop Date: 07/20/16 Status: DiscontinuedSodium Chloride 0.45% IV 1000 mL 1,000 mL, Rate: 40 ml/hr, Infuse over: 25 hr, Route: IV, Dosing Weight 105 kg, Total Volume: 1,000, Start date: 07/18/16 8:58:00 HAND ALTERATIONS TAILOR, Duration: 30 day, Stop date: 08/17/16 8:57:00 HAND ALTERATIONS TAILOR Start Date: 07/18/16 Stop Date: 07/18/16 Status: DiscontinuedSodium Chloride 0.9% (Bolus) IV 500 mL, 1000 ml/hr, Infuse Over: 30 minutes, Route: IV, 500, Drug form: INJ, ONCE, Priority: STAT, Dosing Weight 105.909 kg, Start date: 07/10/16 1:31:00 HAND ALTERATIONS TAILOR , Duration: 1 doses or times, Stop date: 07/10/16 1:31:00 HAND ALTERATIONS TAILOR Start Date: 07/10/16 Stop Date: 07/10/16 Status: CompletedSodium Chloride 0.9% (Bolus) IV 500 mL, 1000 ml/hr, Infuse Over: 30 minutes, Route: IV, 500, Drug form: INJ, ONCE, Priority: STAT, Dosing Weight 105.909 kg, Start date: 07/10/16 2:12:00 HAND ALTERATIONS TAILOR , Duration: 1 doses or times, Stop date: 07/10/16 2:12:00 HAND ALTERATIONS TAILOR Start Date: 07/10/16 Stop Date: 07/10/16 Status: CompletedSodium Chloride 0.9% (Bolus) IV 500 mL, 1,000 ml/hr, Infuse Over: 30 minutes, Route: IV, 500, Drug form: INJ, ONCE, Priority: STAT, Dosing Weight 105.909 kg, Start date: 07/10/16 0:59:00 HAND ALTERATIONS TAILOR , Duration: 1 doses or times, Stop date: 07/10/16 0:59:00 HAND ALTERATIONS TAILOR Start Date: 07/10/16 Stop Date: 07/10/16 Status: Completedsodium chloride 0.9% INJ 250 mL 250 mL, Rate: call taker for use with blood product administration, Dosing Weight 105.909, kg, Route: IV, Total Volume: 250, Start Date: 07/10/16 2:20:00 HAND ALTERATIONS TAILOR, Duration: 30 day, Stop date: 08/09/16 2:19:00CST, Replace Every: 24 hr Start Date: 07/10/16 Stop Date: 07/18/16 Status: Discontinuedsotalol 120 mg oral tablet 120 mg=1 tab, PO, BID, # 180 tab, 0 Refill(s) Start Date: 07/11/16 Status: Orderedterazosin 1 mg oral capsule 1 mg=1 cap, PO, Bedtime, 0 Refill(s) Start Date: 07/11/16 Status: Orderedtramadol 100 mg, 2 tab, Route: PO, Drug form: TAB, Q6H, Dosing Weight 105, kg, PRN Pain Score 4-6, Start date: 07/17/16 15:37:00 HAND ALTERATIONS TAILOR, Duration: 30 day, Stop date: 08/16 15:36:00 HAND ALTERATIONS TAILOR Notes: Not to exceed 400mg/day. (Same As: Ultram) Start Date: 07/17/16 Stop Date: 07/21/16 Status: Discontinuedtramadol 100 mg, 2 tab, Route: NG, Drug form: TAB, Q6H, Dosing Weight 105, kg, Start date : 07/11/16 12:00:00 HAND ALTERATIONS TAILOR, Duration: 30 day, Stop date: 08/10/16 6:00:00 HAND ALTERATIONS TAILOR Notes: Not to exceed 400mg/day. (Same As: Ultram) Start Date: 07/11/16 Stop Date: 07/12/16 Status: Discontinuedtramadol 50 mg oral tablet 100 mg=2 tab, PO, Q6H, PRN Pain Score 4-6, dressing changes, X 30 day, # 60 tab , 0 Refill(s) Start Date: 07/21/16 Stop Date: 08/20/16 Status: OrderedTylenol with Codeine #3 oral tablet 2 tab, PO, Q6H, PRN Pain, for dressing changes, X 7 day, # 56 tab, 0 Refill(s) Start Date: 07/21/16 Stop Date: 07/28/16 Status: Orderedvancomycin 1.25 gm, 250 mL, Route: IV, Drug form: INJ, ONCE, Dosing Weight 105, kg, Start date: 07/12/16 18:20:00 HAND ALTERATIONS TAILOR, Stop date: 07/12/16 18:20:00 HAND ALTERATIONS TAILOR Notes: TIME CRITICAL MEDICATIONSame as: Vancocin-NS (premixed)Infusion rate< 1000 mg: infuse over1 [id number] - 1500 mg: infuse over 1.5 [id number] - 2000 mg: infuse over 2 hours> 2001 mg: infuse over 2.5 hours Start Date: 07/12/16 Stop Date: 07/12/16 Status: Completedvancomycin 1 gm, Route: IV, Drug form: INJ, ONCE, Dosing Weight 105, kg, Start date: 6:00:00 HAND ALTERATIONS TAILOR, Stopdate: 07/10/16 6:00:00 HAND ALTERATIONS TAILOR Notes: TIME CRITICAL MEDICATION(Same As: Vancocin)Infusion rate< 1000 mg: infuse over 1 [id number] - 1500 mg: infuse over 1.5 [id number] - 2000 mg: infuse over 2 hours> 2001 mg: infuse over 2.5 hours MEDICATION WASTE Product Size: 1000 mgProduct Wasted: ___ mg Start Date: 07/10/16 Stop Date: 07/10/16 Status: Completedvancomycin 1 gm, Route: IV, Drug form: INJ, ONCE, Dosing Weight 105, kg, Start date: 9:02:00 HAND ALTERATIONS TAILOR, Stopdate: 07/11/16 9:02:00 HAND ALTERATIONS TAILOR Notes: TIME CRITICAL MEDICATION(Same As: Vancocin)Infusion rate< 1000 mg: infuse over 1 [id number] - 1500 mg: infuse over 1.5 [id number] - 2000 mg: infuse over 2 hours> 2001 mg: infuse over 2.5 hours MEDICATION WASTE Product Size: 1000 mgProduct Wasted: ___ mg Start Date: 07/11/16 Stop Date: 07/11/16 Status: Completedwater for injection, sterile 950 mL + Dextrose 50% in Water IV 25 gm 950 mL, 75 ml/hr, Route: IV, Drug Form: INJ, Dosing Weight 105, kg, Start date: 07/18/16 11:45:00 HAND ALTERATIONS TAILOR, Duration: 30 day, Stop date: 08/17/16 11:44:00 HAND ALTERATIONS TAILOR Start Date: 07/18/16 Stop Date: 07/20/16 Status: DiscontinuedZosyn 3.375 gm, Route: IV, Drug form: PDR/INJ, ABXQ6H, Dosing Weight 105, kg, Start date: 07/10/16 6:00:00CST, Stop date: 07/15/16 22:00:00 HAND ALTERATIONS TAILOR Notes: (Same as: Zosyn)Dosing based on Piperacillin component MEDICATION WASTE Product Size: 3375 mgProduct Wasted: ___ mg Start Date: 07/10/16 Stop Date: 07/15/16 Status: Completed Results BLOOD BANK RESULTS Most recent to oldest [Reference Range]: 1 2 3 ABO/Rh O NEG *Unknown* (07/10/16 2:19 AM) Antibody Scrn Negative (07/10/16 2:19 AM) FFP product Product available (07/10/16 2:20 AM) RBC product Product available (07/10/16 2:20 AM) ELECTROLYTES Most recent to oldest 1 2 3 [Reference Range]: Sodium Lvl [135-145 mEq/L] 142 mEq/L 142 mEq/L 148 mEq/L (07/21/16 4:50 AM) (07/20/16 5:28 AM) *HI* (07/19/16 4:27 AM) Potassium Lvl [3.5-5.1 4.0 mEq/L 3.9 mEq/L 3.9 mEq/L mEq/L] (07/21/16 4:50 AM) (07/20/16 5:28 AM) (07/19/16 4:27 AM) Chloride Lvl [95-109 mEq/L] 106 mEq/L 107 mEq/L 112 mEq/L (07/21/16 4:50 AM) (07/20/16 5:28 AM) *HI* (07/19/16 4:27 AM) CO2 [24-32 mEq/L] 29 mEq/L 27 mEq/L 28 mEq/L (07/21/16 4:50 AM) (07/20/16 5:28 AM) (07/19/16 4:27 AM) AGAP [10.0-20.0 mEq/L] 11.0 mEq/L 11.9 mEq/L 11.9 mEq/L (07/21/16 4:50 AM) (07/20/16 5:28 AM) (07/19/16 4:27 AM) CHEM PANEL Most recent to oldest 1 2 3 [Reference Range]: Creatinine Lvl [0.50-1.40 1.44 mg/dL 1.51 mg/dL 1.89 mg/dL mg/dL] *HI* *HI* *HI* (07/21/16 4:50 AM) (07/20/16 5:28 AM) (07/19/16 4:27 AM) eGFR 49 mL/min/1.73m2 1 46 mL/min/1.73m2 2 35 mL/min/1.73m2 3 *NA* *NA* *NA* (07/21/16 4:50 AM) (07/20/16 5:28 AM) (07/19/16 4:27 AM) BUN [7-22 mg/dL] 28 mg/dL 36 mg/dL 41 mg/dL *HI* *HI* *HI* (07/21/16 4:50 AM) (07/20/16 5:28 AM) (07/19/16 4:27 AM) B/C Ratio [6-25] 15 (07/10/16 1:04 AM) Glucose Lvl [70-99 mg/dL] 87 mg/dL 99 mg/dL 214 mg/dL (07/21/16 4:50 AM) (07/20/16 5:28 AM) *HI* (07/19/16 4:27 AM) Total Protein [6.4-8.4 g/dL] 6.5 g/dL (07/10/16 1:04 AM) Albumin Lvl [3.5-5.0 g/dL] 2.1 g/dL *LOW* (07/10/16 1:04 AM) Globulin [2.7-4.2 g/dL] 4.4 g/dL *HI* (07/10/16 1:04 AM) A/G Ratio [0.7-1.6] 0.5 *LOW* (07/10/16 1:04 AM) Calcium Lvl [8.5-10.5 mg/dL] 8.6 mg/dL 8.6 mg/dL 8.9 mg/dL (07/21/16 4:50 AM) (07/20/16 5:28 AM) (07/19/16 4:27 AM) Phosphorus [2.5-4.5 mg/dL] 2.9 mg/dL 3.7 mg/dL 4.1 mg/dL (07/21/16 4:50 AM) (07/20/16 5:28 AM) (07/19/16 4:27 AM) Magnesium Lvl [1.8-2.4 mg/dL] 1.8 mg/dL 1.9 mg/dL 2.3 mg/dL (07/21/16 4:50 AM) (07/20/16 5:28 AM) (07/19/16 4:27 AM) ALT [0-65 unit/L] 16 unit/L (07/10/16 1:04 AM) AST [0-37 unit/L] 13 unit/L (07/10/16 1:04 AM) Alk Phos [39-136 unit/L] 100 unit/L (07/10/16 1:04 AM) Bili Total [0.2-1.3 mg/dL] 0.6 mg/dL (07/10/16 1:04 AM) Ketone Quantitative [<=0.27 1.48 mmol/L mmol/L] *HI* (07/10/16 7:39 PM) Lactic Acid Lvl [0.5-2.2 0.6 mMol/L 2.2 mMol/L 1.8 mMol/L mMol/L] (07/10/16 7:39 PM) (07/10/16 5:38 AM) (07/10/16 1:04 AM) 1Result Comment: The eGFR is calculated using the CKD-EPI formula. In most young , healthy individualsthe eGFR will be >90 mL/min/1.73m2. The eGFR declines with age. An eGFR of 60-89 may be normal in some populations, particularly the elderly, for whom the CKD-EPI formula has not been extensively validated. Use of the eGFR is not recommended in the following populations: Individuals with unstable creatinine concentrations, including patients and those with serious co-morbid conditions. Patients with extremes in muscle mass or diet. The data above are obtained from the National Kid[employer] Education Program ( [employer]) which additionally recommends that when the eGFR is used in patients with extremes of body mass index for purposesof drug dosing, the eGFR should be multiplied by the estimated BMI.2Result Comment: The eGFR is calculated using the CKD-EPI formula. In most young, healthy individualsthe eGFR will be >90 mL/ min/1.73m2. The eGFR declines with age. An eGFR of 60-89 may be normal in some populations, particularly the elderly, for whom the CKD-EPI formula has not been extensively validated. Use of the eGFR is not recommended in the following populations: Individuals with unstable creatinine concentrations, including patients and those with serious co-morbid conditions. Patients with extremes in muscle mass or diet. The data above are obtained from the National [employer] Education Program ( [employer]) which additionally recommends that when the eGFR is used in patients with extremes of body mass index for purposesof drug dosing, the eGFR should be multiplied by the estimated BMI.3Result Comment: The eGFR is calculated using the CKD-EPI formula. In most young, healthy individualsthe eGFR will be >90 mL/ min/1.73m2. The eGFR declines with age. An eGFR of 60-89 may be normal in some populations, particularly the elderly, for whom the CKD-EPI formula has not been extensively validated. Use of the eGFR is not recommended in the following populations: Individuals with unstable creatinine concentrations, including patients and those with serious co-morbid conditions. Patients with extremes in muscle mass or diet. The data above are obtained from the National Kid[employer] Education Program ( [employer]) which additionally recommends that when the eGFR is used in patients with extremes of body mass index for purposesof drug dosing, the eGFR should be multiplied by the estimated BMI.CARDIAC ENZYMES Most recent to oldest [Reference Range]: 1 2 3 Total CK [12-191 unit/L] 78 unit/L (07/10/16 1:04 AM) CK MB [0.5-3.6 ng/mL] 0.9 ng/mL (07/10/16 1:04 AM) CK MB Index [0.0-2.5] 1.2 (07/10/16 1:04 AM) Troponin-I [0.00-0.40 ng/mL] <0.02 ng/mL (07/10/16 1:04 AM) SPECIAL CHEMISTRY Most recent to oldest [Reference Range]: 1 2 3 Hgb A1C [<=5.6 %] 11.1 % *HI* (07/17/16 6:08 PM) PARATHYROID PROFILE Most recent to oldest 1 2 3 [Reference Range]: Ca Ion WB [1.05-1.25 mMol/L] 1.05 mMol/L 1.12 mMol/L 1.06 mMol/L (07/21/16 4:50 AM) (07/20/16 5:28 AM) (07/19/16 4:27 AM) Ca Norm WB [1.05-1.25 1.05 mMol/L 1.08 mMol/L 1.08 mMol/L mMol/L] (07/21/16 4:50 AM) (07/20/16 5:28 AM) (07/19/16 4:27 AM) TOXICOLOGY Most recent to oldest [Reference Range]: 1 2 3 Vanco Lvl 10.4 ug/ml 14.3 ug/ml *NA* *NA* (07/12/16 5:02 PM) (07/10/16 7:39 PM) URINE CHEM Most recent to oldest [Reference Range]: 1 2 3 U Creatinine 116.00 mg/dL *NA* (07/10/16 8:49 AM) U Urea 321 mg/dL *NA* (07/10/16 8:49 AM) U Sodium 18 mEq/L *NA* (07/10/16 8:49 AM) U Osmolality [300-800 mOsm/kg] 325 mOsm/kg (07/10/16 8:49 AM) URINE AND STOOL Most recent to oldest [Reference Range]: 1 2 3 UA Turbidity [Clear] Slight Slight Cloudy *ABN* (07/10/16 1:38 AM) (07/10/16 5:38 AM) UA Color [Yellow] Yellow Yellow *NA* *NA* (07/10/16 5:38 AM) (07/10/16 1:38 AM) UA pH [5.0-8.0] 5.5 (07/10/16 5:38 AM) UA pH [5.0-8.0] 5.0 (07/10/16 1:38 AM) UA Spec Grav [<=1.030] 1.010 (07/10/16 5:38 AM) UA Spec Grav [<=1.030] 1.020 (07/10/16 1:38 AM) UA Glucose 500mg/dL *NA* (07/10/16 5:38 AM) UA Glucose [Negative mg/dL] >=1000 mg/dL *ABN* (07/10/16 1:38 AM) UA Blood [Negative] Moderate Small *ABN* *ABN* (07/10/16 5:38 AM) (07/10/16 1:38 AM) UA Ketones [Negative mg/dL] Negative mg/dL 15 mg/dL *NA* *ABN* (07/10/16 8:49 AM) (07/10/16 1:38 AM) UA Ketones TR *NA* (07/10/16 5:38 AM) UA Protein [Negative mg/dL] 100 mg/dL 30 mg/dL *ABN* *ABN* (07/10/16 5:38 AM) (07/10/16 1:38 AM) UA Urobilinogen [0.1-1.0 mg/dL] <=1.0 mg/dL *NA* (07/10/16 5:38 AM) UA Urobilinogen [0.1-1.0 EU/dL] 0.2 EU/dL (07/10/16 1:38 AM) UA Bili [Negative] Negative Small *NA* *ABN* (07/10/16 5:38 AM) (07/10/16 1:38 AM) UA Leuk Est [Negative] Small Negative *ABN* (07/10/16 1:38 AM) (07/10/16 5:38 AM) UA Nitrite [Negative] Negative Negative (07/10/16 5:38 AM) (07/10/16 1:38 AM) UA WBC [0-5 /HPF] 17 /HPF *HI* (07/10/16 5:38 AM) UA WBC [None Seen /HPF] 0-2 /HPF (07/10/16 1:38 AM) UA RBC [0-2 /HPF] 5 /HPF 3-5 /HPF *HI* *ABN* (07/10/16 5:38 AM) (07/10/16 1:38 AM) UA Bacteria [None Seen /HPF] Occasional /HPF Occasional /HPF *NA* (07/10/16 1:38 AM) (07/10/16 5:38 AM) UA Sq Epi None Seen *NA* (07/10/16 5:38 AM) UA Sq Epi [Few /LPF] Rare /LPF (07/10/16 1:38 AM) UA Hyal Cast [0-2 /LPF] 3 /LPF *HI* (07/10/16 5:38 AM) UA Hyal Cast [0-2] 0-2 (07/10/16 1:38 AM) UA Amorph Sydnie [None Seen /HPF] Occasional /HPF Few /HPF *NA* *ABN* (07/10/16 5:38 AM) (07/10/16 1:38 AM) UA Renal Epi [None Seen /LPF] 0-2 /LPF *ABN* (07/10/16 1:38 AM) UA Mucus [None Seen /LPF] Few /LPF *NA* (07/10/16 5:38 AM) UA Gran Cast 14 /LPF *NA* (07/10/16 5:38 AM) UA Gran Cast [None Seen /LPF] 3-5 /LPF *ABN* (07/10/16 1:38 AM) UA Kennard Yeast [None Seen /HPF] Few /HPF *ABN* (07/10/16 5:38 AM) HEMATOLOGY Most recent to oldest 1 2 3 [Reference Range]: WBC [3.7-10.4 K/CMM] 11.9 K/CMM 10.1 K/CMM 12.8 K/CMM *HI* (07/20/16 5:28 AM) *HI* (07/21/16 4:50 AM) (07/19/16 4:27 AM) RBC [4.70-6.10 M/CMM] 3.39 M/CMM 3.51 M/CMM 3.69 M/CMM *LOW* *LOW* *LOW* (07/21/16 4:50 AM) (07/20/16 5:28 AM) (07/19/16 4:27 AM) Hgb [14.0-18.0 g/dL] 9.8 g/dL 10.5 g/dL 10.7 g/dL *LOW* *LOW* *LOW* (07/21/16 4:50 AM) (07/20/16 5:28 AM) (07/19/16 4:27 AM) Hct [42.0-54.0 %] 30.5 % 32.0 % 34.0 % *LOW* *LOW* *LOW* (07/21/16 4:50 AM) (07/20/16 5:28 AM) (07/19/16 4:27 AM) MCV [80.0-94.0 fL] 90.0 fL 91.2 fL 92.1 fL (07/21/16 4:50 AM) (07/20/16 5:28 AM) (07/19/16 4:27 AM) MCH [27.0-31.0 pg] 29.0 pg 29.8 pg 29.1 pg (07/21/16 4:50 AM) (07/20/16 5:28 AM) (07/19/16 4:27 AM) MCHC [32.0-36.0 g/dL] 32.2 g/dL 32.7 g/dL 31.6 g/dL (07/21/16 4:50 AM) (07/20/16 5:28 AM) *LOW* (07/19/16 4:27 AM) RDW [11.5-14.5 %] 14.5 % 15.3 % 15.6 % (07/21/16 4:50 AM) *HI* *HI* (07/20/16 5:28 AM) (07/19/16 4:27 AM) Platelet [133-450 K/CMM] 289 K/CMM 241 K/CMM 274 K/CMM (07/21/16 4:50 AM) (07/20/16 5:28 AM) (07/19/16 4:27 AM) MPV [7.4-10.4 fL] 9.2 fL 8.4 fL 8.5 fL (07/21/16 4:50 AM) (07/20/16 5:28 AM) (07/19/16 4:27 AM) Segs [45.0-75.0 %] 78.3 % 77.4 % 79.8 % *HI* *HI* *HI* (07/21/16 4:50 AM) (07/20/16 5:28 AM) (07/19/16 4:27 AM) Lymphocytes [20.0-40.0 %] 14.1 % 15.6 % 14.0 % *LOW* *LOW* *LOW* (07/21/16 4:50 AM) (07/20/16 5:28 AM) (07/19/16 4:27 AM) Monocytes [2.0-12.0 %] 5.0 % 4.0 % 4.1 % (07/21/16 4:50 AM) (07/20/16 5:28 AM) (07/19/16 4:27 AM) Eosinophils [0.0-4.0 %] 2.1 % 2.4 % 1.7 % (07/21/16 4:50 AM) (07/20/16 5:28 AM) (07/19/16 4:27 AM) Basophils [0.0-1.0 %] 0.5 % 0.6 % 0.4 % (07/21/16 4:50 AM) (07/20/16 5:28 AM) (07/19/16 4:27 AM) Segs-Bands # [1.5-8.1 9.3 K/CMM 7.9 K/CMM 10.2 K/CMM K/CMM] *HI* (07/20/16 5:28 AM) *HI* (07/21/16 4:50 AM) (07/19/16 4:27 AM) Lymphocytes # [1.0-5.5 1.7 K/CMM 1.6 K/CMM 1.8 K/CMM K/CMM] (07/21/16 4:50 AM) (07/20/16 5:28 AM) (07/19/16 4:27 AM) Monocytes # [0.0-0.8 0.6 K/CMM 0.4 K/CMM 0.5 K/CMM K/CMM] (07/21/16 4:50 AM) (07/20/16 5:28 AM) (07/19/16 4:27 AM) Eosinophils # [0.0-0.5 0.2 K/CMM 0.2 K/CMM 0.2 K/CMM K/CMM] (07/21/16 4:50 AM) (07/20/16 5:28 AM) (07/19/16 4:27 AM) Basophils # [0.0-0.2 0.1 K/CMM 0.1 K/CMM 0.1 K/CMM K/CMM] (07/21/16 4:50 AM) (07/20/16 5:28 AM) (07/19/16 4:27 AM) RBC Morph Normal Normal (07/17/16 12:05 AM) (07/10/16 1:04 AM) Plt Morph Normal Normal (07/17/16 12:05 AM) (07/10/16 1:04 AM) PT [12.0-14.7 seconds] 16.8 seconds 16.1 seconds *HI* *HI* (07/10/16 7:39 PM) (07/10/16 1:04 AM) INR [0.85-1.17] 1.34 1.26 *HI* *HI* (07/10/16 7:39 PM) (07/10/16 1:04 AM) PTT [22.9-35.8 seconds] 34.5 seconds 31.6 seconds (07/10/16 7:39 PM) (07/10/16 1:04 AM) ACT (TEG) Rapid [86-118 113 seconds seconds] (07/10/16 5:38 AM) [place] Rapid 0.6 minutes *NA* (07/10/16 5:38 AM) R-time Rapid [0.4-0.7 0.7 minutes minutes] (07/10/16 5:38 AM) K-time Rapid [0.6-2.3 0.8 minutes minutes] (07/10/16 5:38 AM) Angle Rapid [64-80 81 degrees degrees] *HI* (07/10/16 5:38 AM) Max Amplitude Rapid [52-71 78 mm mm] *HI* (07/10/16 5:38 AM) G-value Rapid [5.0-11.6 K 17.4 K d/sc d/sc] *HI* (07/10/16 5:38 AM) Estimated % Lysis Rapid 0.0 % [0.0-7.5 %] (07/10/16 5:38 AM) Immunizations No data available for this section Procedures Procedure Date Related Diagnosis Body Site Stent placement1 1cardiac Social History Social History Type Response Smoking Status Never smoker; Exposure to Tobacco Smoke None; Cigarette Smoking Last 365 Days No; Reg Smoking Cessation Counseling No Assessment and Plan Extracted from: Title: ID Endocrine Progress note Author: Raleigh Whitlock MD Date: Endocrine Daily Progress Note Patient Room: [place] [address], [address] SUSAN DUMONT 71y (: 1945) Attending: Nemesio Toledo DO Service: Surgery Chief Complaint: Hyperglycenia Subjective: Denies any pain, dizziness or discomfort. REVIEW OF SYSTEMS: A 12 point ROS was negative Objective: Vitals Tmp(F) Pulse BP RR SpO2 FIO2 07/21 13:09 ---- --- ----- -- 99 3.0L/m 07/21 12:00 98.0 72 147/69 19 98 3.0L/m 07/21 08:00 98.0 65 108/59 16 99 96% 07/21 03:56 97.9 72 119/66 18 93 --- 07/20 23:41 98.2 71 132/75 18 95 --- 24 Hr Tmax: 98.2F (36.78c) at 07/20 23:41 Vital Signs are the last 5 in the past 48 hours. Date Wt(kg) Wt(lb) Ht(cm) Ht(in) Method 07/15 106.30 233.86 Measured 07/10 (initial) 105.91 233.00 182.88 72.00 Estimated General- NAD, awake and alert HEENT- EOMI, PERRLA, dry mucous membranes. No thyromegaly CVS- RRR, no murmurs, rubs or gallops Chest- Cleat to auscultation bilaterally, no rhonchi, wheezing or rales Abdomen- soft, non tender, non distended, positive bowel sounds Extremities- no cyanosis or edema, 2+ peripheral pulses Skin- scattered areas of ecchymoses bilateral upper extremities Neuro- no focal deficits Psych- appropriate mood and affect Data: 24hr Labs 07/21 1256 Glucose POC 244 H 07/21 0545 Glucose POC 87 07/21 0450 Ca Ion WB 1.05 Ca Norm WB 1.05 Glucose Lvl 87 BUN 28 H Creatinine Lvl 1.44 H Sodium Lvl 142 Potassium Lvl 4.0 Chloride Lvl 106 CO2 29 AGAP 11.0 Calcium Lvl 8.6 eGFR 49 Magnesium Lvl 1.8 Phosphorus 2.9 WBC 11.9 H RBC 3.39 L Hgb 9.8 L Hct 30.5 L MCV 90.0 MCH 29.0 MCHC 32.2 RDW 14.5 Platelet 289 MPV 9.2 Segs 78.3 H Monocytes 5.0 Lymphocytes 14.1 L Eosinophils 2.1 Basophils 0.5 Segs-Bands # 9.3 H Lymphocytes # 1.7 Monocytes # 0.6 Eosinophils # 0.2 Basophils # 0.1 07/20 2008 Glucose POC 201 H 07/20 1610 Glucose POC 156 H 07/17 1222 Glucose POC 196 H Assessment/Plan: 71 y/o male with past medical history of 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 We have been consulted for management of DM. BG this am: 87 -on insulin detemir 35U q12h and premeal aspart 10U TID -received 4U insulin aspart yesterday -planned for discharge today. Recommend that the patient continue insulin detemir 35U q12h with scheduled premeal aspart 10U TID -Planned for FEES prior to discharge. If dietary recommendations change, please call endocrine service for insulin regimen -patient does not have an utilization review coordinator and lives in [place]. He will follow up with his PCP. Thank you for this consult. Patient seen and staffed with Dr. Whitlock. We will continue to follow. Geraldo Gloria D.O. Internal Medicine, PGY-3 MSO# [id number] Endocrine Attending Teaching Note: I have interviewed and examined the patient, and I have reviewed the resident' s note and agree with the clinical findings, assessment, and plan. I have discussed the case with Dr. Gloria. DM-2 with ac ceptable control on current regimen. Glucose was higher at lunch as he was not given morning aspart. I have counseled patient on need to follow diet and will continue insulin dose at home. He will f/u with his PCP. He has sufficient insulin at home. Extracted from: Title: Endocrine consultation note Author: Raleigh Whitlock MD Date: Endocrine Consult Note: Patient Room: [address] SUSAN DUMONT 71y (: 1945) Attending: Nemesio Toledo DO Service: Surgery DATE OF CONSULT: 07/17/16 REFERRING PHYSICIAN: PANKAJ CONSULTING PHYSICIAN: Lionel Whitlock MD REASON FOR CONSULTATION: DM2 management CHIEF COMPLAINT: hyperglycemia HISTORY OF PRESENT ILLNESS: This is a 71 year male who was admitetd on for Joel's gangrene after having worsening left buttock pain. He went to an outside hospital where imaging demonstrate d an abscess with gas formation tracking to the perineum and penis and was transferred to [facility] on 07/10/16. He was taken to OR for emergent incision and drainage with debridement of necrotic tissue. He has a history of diabetes mellitus type 2 and came in hyperglycemic, ketotic, POC pH 7.21 and was placed on insulin gtt peroperatively. He has recovered well on a surgical standpoint and his infection appears to be under control now off antibiotics. [facility] He was bridged off insulin gtt with levemir 80 units x1 on 07/15 and increased to 90 units q12hr for difficulty wean ing of gtt. Sussequently, the gtt was stopped on 07/16. He was requrining up to 15 units per hour the last 24 hrs on gtt but over the last few hours before first levemir dose was given he was closer to 6-7 U/hr. He had been on continuous tube feeds which was weaned overnight and stopped this AM as he partly passed swallow study to allow for pureed solid dysphagia diet. His last insulin dose was l evemir 90 units last night and he dropped to 53 as the tube feeds were weaning requiring two separate doses of 12.5 mg D50. Last glucose was 118. He currently feels "pretty good" with mild pain of but tocks. Ate breakfast well except for the eggs due to taste. No nausea or vomitng, fevers or chills. Endorses dry mouth and thirst He was diagnosed with DM2 in early 40s. Previously on metformin and "other pills" but these were stopped due to his kidney function. He has a h/o CKD, CAD , CHF, O2 dependent COPD, atrial flutter and c rohn's. His home insulin regimen was levemir 55 units in AM and 35 units in PM and Novolog 35 units TIDAC. Denies any hypoglycemia. He last saw detective private eye 3 years ago, and no complications of diab etes. He has history of left greattoe amputation for infected ulcer, with chronic tingling of feet. He is not on neuropathic medicines per report. He does not recall his last A1c but reports his PCP states it's well controlled. Both parents had DM2 and he is a former heavy smoker. 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 Occasional ETOH, no drugs FAMILY HISTORY: DM2 in mother and father Allergies (1) Active Reaction NKDA None documented Medications (25) Active Scheduled Meds (13): 07/11/16 acetaminophen 1,000 mg NG Q6H 07/12/16 aspirin (aspirin 81 mg tablet, chewable) 81 mg NG Daily 07/13/16 budesonide-formoterol (budesonide-formoterol 160 mcg-4.5 mcg/inh inhalation aerosol with adapter) 2 puff INHALATION BID 07/17/16 furosemide (Lasix) 30 mg PO Q12H 07/10/16 heparin 7,500 unit SUB-Q Q8H 07/16/16 insulin detemir 60 unit SUB-Q Q12H 0 ml/hr 07/14/16 isosorbide dinitrate 20 mg PO Q6H 07/15/16 loperamide 2 mg PO Q8H 07/17/16 losartan 100 mg PO Daily 07/14/16 metoprolol (Lopressor) 100 mg NG Q12H 07/13/16 pantoprazole 40 mg NG Q24H 07/13/16 potassium chloride 40 mEq PO Daily 07/14/16 psyllium 3.4 gm NG Q12H Unscheduled Meds: None PRN Meds (10): 07/16/16 Dextrose 50% in Water IV (Dextrose 50% Syringe) 12.5 gm IVP PRN 07/16/16 Dextrose 50% in Water IV (Dextrose 50% Syringe) 25 gm IVP PRN 07/16/16 Insulin regular 8 unit SUB-Q PRN 07/16/16 Insulin regular 12 unit SUB-Q PRN 07/16/16 Insulin regular 15 unit SUB-Q PRN 07/16/16 Insulin regular 18 unit SUB-Q PRN 07/13/16 ipratropium (ipratropium 0.02% inhalation solution) 0.5 mg NEB Q6H 07/14/16 labetalol 10 mg IVP Q4H 07/17/16 oxyCODONE (oxyCODONE 5 mg oral tablet) 5 mg PO Q4H 07/10/16 sodium chloride (Saline Flush 0.9%) 10 mL IVP PRN One Time Meds (1): 07/16/16 (Completed) losartan 50 mg PO ONCE Continuous Infusions (1): 07/10/16 sodium chloride 0.9% INJ 250 mL 250 mL call taker for use with blood product administration REVIEW OF SYSTEMS: 10 pt ROS negative except in HPI PHYSICAL EXAMINATION: Vital Signs - Reviewed Vitals Tmp(F) Pulse BP RR SpO2 FIO2 07/17 11:00 ---- 77 137/66 13 100 --- 07/17 10:30 ---- 81 151/63 12 100 --- 07/17 10:00 ---- 89 188/82 19 98 --- 07/17 09:00 ---- 96 132/60 14 99 --- 07/17 08:00 ---- 94 177/80 24 99 --- 24 Hr Tmax: 97.6F (36.44c) at 07/16 16:00 Vital Signs are the last 5 in the past 48 hours. Date Wt(kg) Wt(lb) Ht(cm) Ht(in) Method 07/15 106.30 233.86 Measured 07/10 (initial) 105.91 233.00 182.88 72.00 Estimated General- NAD, pleasant, obese HEENT- EOMI, PERRL. dry focal areas of skin on malar area. Dry MM. no thyromegaly CVS- Regular rate and rhythm without murmurs Chest- Clear to auscultation without wheezes Abdomen- Sodt, nondistended, nontender. Dressings of perineal area Extremities- No edema. 2+ periheral pulses, left great toe amputated Skin- occasional ecchymoses of upper extremities Neuro- alert and oriented. No gross focal neuro deficits Psych- Appropraite mood and affect DATA: 24hr Labs 07/17 0811 Glucose POC 118 H 07/17 0613 Glucose POC 121 H 07/17 0415 Glucose POC 114 H 07/17 0333 Glucose POC 53 L 07/17 0217 Glucose POC 76 07/17 0114 Glucose POC 57 L 07/17 0005 Glucose Lvl 69 L BUN 33 H Creatinine Lvl 1.25 Sodium Lvl 155 H Potassium Lvl 3.4 L Chloride Lvl 115 H CO2 33 H AGAP 10.4 Calcium Lvl 8.9 eGFR 58 Magnesium Lvl 2.0 Phosphorus 3.0 WBC 10.6 H RBC 3.74 L Hgb 11.0 L Hct 33.2 L MCV 88.7 MCH 29.3 MCHC 33.0 RDW 15.7 H Platelet 307 MPV 8.4 Segs 74.9 Monocytes 7.2 Lymphocytes 14.8 L Eosinophils 2.5 Basophils 0.6 Segs-Bands # 8.0 Lymphocytes # 1.6 Monocytes # 0.8 Eosinophils # 0.3 Basophils # 0.1 RBC Morph Normal Plt Morph Normal 07/16 2328 Glucose POC 81 07/16 1935 Glucose POC 239 H 07/16 1802 Glucose POC 273 H 07/16 1624 Glucose POC 281 H 07/16 1547 Glucose POC 263 H 07/16 1127 Glucose POC 231 H 07/16 1126 Glucose POC 257 H 07/16 1005 Glucose POC 211 H 07/16 0847 Glucose POC 203 H ASSESSMENT AND PLAN: 71 year old male with history of DM2 on large amounts of insulin who was admitted for Joel's gangrene and we were consulted for DM management. -last dose of levemir was last night, would continue holding and assess BG throughout the day and sandra will add lowere dose levemir tonight closer to his home dose (20-30 units) -Recommend from scheduling meal time insulin and keeping on moderate does sliding scale aspart (2:50 over 150) until we have better idea of how much he will eat. His swallow ability will ikely continue to improve, which we will need to follow along with his diet orders -check A1c to assess status of control. Doens't look like he recived transfusion this admission. Defer hypernatremia management to primary team. he does appear dehydrated on exam and last sodium was 155. he may need some fluids added pending his CHF and respiratory comorbidities. Thank you for this consultation and page [phone] for further questions Endocrine Attending Teaching Note: I have interviewed and examined the patient, and I have reviewed the fellow's note and agree with the clinical findings, assessment, and plan. I have discussed the case with Dr. oHlt. We were consulte d for uncontrolled DM-2 complicated by neuropathy s/p left ray amputation and nephropathy, in this gentleman admitted with rectal abscess/joel's gangrene. He is on home oxygen for COPD/CHF and is on ly able to get around on a scooter. He is morbidly obese and is on chronic anticoagulation for afib. He was treated with IV insulin initially and has been requiring large doses of insulin while receivin g tube feedings. Now switched to purree diet with uncertain oral intake, we will adjust insulin as discussed. Please discontinue high dose correction scale. He is thirsty and has sodium 155. Would liberalize IV fluids. Will follow with you. Extracted from: Title: EGS History and Physical Author: Shaikh Jose Goddard MD Date: 07/10/16 Patient: SUSAN DUMONT Age: 71 years Sex: Male : 1945 Associated Diagnoses: None Author: Shaikh Jose Goddard MD Basic Information Source of history: Self, Family member. History of Present Illness REFERRING PHYSICIAN - Dr. Tim Nunez CONSULTING PHYSICIAN - Dr. Nemesio Toledo REASON FOR CONSULT - Necrotizing Fascitis CHIEF COMPLAINT - Left gluteal pain Our patient is a 71 year old Male who is presenting with an acute process of left gluteal pain. Per patient the pain started 3 days ago and increased in severity. Patient states that he noticed some drainage from the area and some foul smelling odor. He initially went to [facility] when he could not tolerate the pain any longer. He underwent a CT scan at [facility] where he the CT scan was significant for air tracking perianally and along the perineal and penile tissue. For higher level of care patient was transferred to the C at [facility] in case he would also require any urologic intervention alongside the incision and debridement for the necrotizing fascitis around the perirectal and perineal region. Patient has a past medical history that is significant for uncontrolled diabetes mellitus, HTN, CAD (3 stents placed in 2010 during a left heart cath), COPD (on home oxygen and CPAP on and off at night), Crohn's disease (on budesonide, off steroids for the past couple of months) Patient also has a history of atrial fibrillation for which he takes Eliquis (last dose more than 24 hours ago, the night before he went to [facility]) Patient has a past surgical history significant for colon resection in 2011( patient unsure which side but knows that it was because of perforation of his bowel), patient also has a history of incisional hernia repair the next year in 2012. (Also has a history of left great toe amputation). Patient received zosyn, levaquin, and vancomycin at [facility]. 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 Gastrointestinal: No nausea, No vomiting. Genitourinary: perirectal abscess (left buttcheek abscess, left gluteal fold infection). 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 COPD (chronic obstructive pulmonary disease) (17757190): Resolved. CHF (congestive heart failure) (578425471): Resolved. DM (diabetes mellitus screen) (704095169): Resolved. Family History: No family history items have been selected or recorded. Procedure history: Stent placement ([id number]). Comments: 07/10/2016 00:41 - Kerry Hernandez RN cardiac Social History Social & Psychosocial Habits Tobacco 07/10/2016 Use: Never smoker Exposure to Tobacco Smoke None Cigarette Smoking Last 365 Days No Reg Smoking Cessation Counseling No . Physical Examination General: Alert and oriented, No acute distress. Neck: Supple, Non-tender. Cardiovascular: Normal rate, Regular rhythm. Gastrointestinal: Soft, Non-tender, midline abdominal incision from previous surgery (colon resection). Genitourinary: No costovertebral angle tenderness, No scrotal tenderness, left butt cheek abscess drainage left butt cheek area (left bharath rectal area) with skin erythematous and draining with mild to moderate purulence. Significantly tender on palpation. . Musculoskeletal Normal range of motion. Normal strength. Integumentary: Warm, [place]. Neurologic: Alert, Oriented. Psychiatric: Cooperative. Review / Management Results review: Labs (Last four charted values) WBC H 19.1 (JUL 10) Hgb L 10.7 (JUL 10) Hct L 31.6 (JUL 10) Plt 177 (JUL 10) Na L 127 (JUL 10) K 4.4 (JUL 10) CO2 L 22 (JUL 10) Cl L 90 (JUL 10) Cr H 1.93 (JUL 10) BUN H 29 (JUL 10) Glucose Random C 480 (JUL 10) Ca L 8.2 (JUL 10) PT H 16.1 (JUL 10) INR H 1.26 (JUL 10) PTT 31.6 (JUL 10) Troponin <0.02 (JUL 10) CK MB 0.9 (JUL 10) Total CK 78 (JUL 10) . Impression and Plan Patient is a 71 year old Male with an extensive medical history including COPD , A FIB, HTN, DM, CHF who is presenting with a perirectal abscess Perirectal abscess Clinical presentation and PE(n) findings consistent with Necrotizing fascitis confirmed on CT scan Patient to OR for excision, and debridement today (07/10) Please obtain EKG, CHEST X RAY prior to OR STAT ESR, CRP, Lactate, CBC and BMP ordered Patient given fluid resuscitation (500 ccs bolus x 2), Patient with history of Diabetes Given 10 units of regular insulin (glucose on admission 480) Atrial fibrillation Patient on aspirin, last dose of Elliquis 07/08 PM Patient systolics in the 120s - 130s/60s - 70s, HR in the 150s Given metoprolol 5 mg/5 ml IV (HR downtrending to lower 100s) CT scan findings consistent with air tracking in the perineal region Urology consulted to join in OR for possible intervention Dr. Kyle notified Patient and educated on the possibility of excisional debridement and need for possibly ostomy. Patient and educated on the need for surgery and the emergent nature of treating necrotizing fascitis surgically. Consent was obtained. Patient posted will proceed to OR 39. For any questions please page [phone] (EGS) Thank you. Addendum by Nemesio Toledo DO on Emergency General Surgery Staff 07/11/2016 14:50 I have seen and examined this patient with Dr Goddard and agree with his assessment and plan. Decision for surgery Dr. Nemesio Toledo [phone]
[2018-02-09 17:53] LABS: Absolute Lymphocytes (CBC) 1.1 K/uL (0.7-4.9); Absolute Monocytes 0.9 K/uL (0.1-1.3); Absolute Neutrophil 6.7 K/uL (1.8-8.0); Basophils % 0.5 % (0-1.3); Eosinophils % 2.8 % (0-4.4); Hematocrit 35.2 % (39.6-49.0); Lymphocytes % 11.9 % (15.3-44.8); MCH 30.4 pg (27.0-35.0); MCV 89.5 fL (80-100); MPV 7.9 fL (7.6-11.3); Monocytes % 10.2 % (3.3-12.3); RBC Red Blood Cell Count 3.94 M/uL (4.33-5.43)
[2018-02-09] MEDS ORDERED: VANCOMYCIN 2 GM in NA CHLORIDE 0.9% 500 ML IVPB SCH ×2 (18:00→21:00)
[2018-02-09 18:14] LABS: Bilirubin Total 0.3 mg/dL (0.2-1.0); Protein, Total 7.9 g/dL (6.4-8.2)
--- NOTE | 2018-02-09 19:06 | RAD REPORT ---
EXAM DESCRIPTION: RAD - Foot Right 3 View - 02/09/2018 6:45 pm CLINICAL HISTORY: Right foot pain FINDINGS: No fracture or dislocation is seen. The bones are osteoporotic. Vascular calcifications ar e seen. The distal aspect of the first distal phalanx is demineralized. This may represent focal osteoporosis or osteomyelitis and should be correlated clinically
[2018-02-09] MEDS ORDERED: D50W 25 GM/50 ML SYRINGE IV PRN ×2 (20:05→20:07)
[2018-02-09] MEDS ORDERED: GLUCAGON 1 MG/VIAL IM PRN ×2 (20:05→20:07)
[2018-02-09] MEDS: HOME MED 1 EA UNK (Budesonide/Formoterol Fumarate [Symbicort 160-4.5 Mcg Inhaler] 2 PUFF) IH SCH (21:00)
[2018-02-09] MEDS: SOTALOL HCL 80 MG TAB PO SCH (21:57)
[2018-02-09] MEDS: FUROSEMIDE 40 MG TABLET PO SCH (21:58)
[2018-02-09] MEDS: DOCUSATE NA 100 MG CAP PO SCH (21:58)
[2018-02-09] MEDS: APIXABAN 5 MG TABLET PO SCH (21:59)
[2018-02-09] MEDS: INSULIN -REGULAR HUMAN 50 UNIT/0.5 ML ML SQ SCH (22:00)
[2018-02-09 22:48] LABS: Urine Appearance CLEAR; Urine Bilirubin NEGATIVE (NEG); Urine Blood NEGATIVE (NEG); Urine Color YELLOW; Urine Glucose NEGATIVE (NEG); Urine Protein 2+ (NEG); Urine Urobilinogen 0.2 mg/dL (0.2-1.0)
[2018-02-09 22:49] LABS: Urine Microscopic Reflex ORDER UMIC
[2018-02-10 00:33] LABS: Urine Bacteria <20 /HPF (NONE SEEN); Urine Culture Reflex Order NOT NEEDED; Urine RBC <5 /HPF (NONE SEEN)
[2018-02-10] MEDS: ISOSORBIDE MONONITRATE PO SCH (08:18)
[2018-02-10] MEDS: HOME MED 1 EA UNK (Budesonide/Formoterol Fumarate [Symbicort 160-4.5 Mcg Inhaler] 2 PUFF) IH SCH ×2 (08:18→21:00)
[2018-02-10] MEDS: INSULIN -REGULAR HUMAN 50 UNIT/0.5 ML ML SQ SCH ×4 (08:42→21:18)
[2018-02-10] MEDS: SOTALOL HCL 80 MG TAB PO SCH ×2 (08:43→21:16)
[2018-02-10] MEDS: ASPIRIN 81 MG CHEWABLE TABLET PO SCH (08:43)
[2018-02-10] MEDS: DOCUSATE NA 100 MG CAP PO SCH ×2 (08:43→21:17)
[2018-02-10] MEDS: INSULIN DETEMIR 100 UNIT/1 ML INSULIN SQ SCH ×2 (08:43→16:42)
[2018-02-10] MEDS: BUDESONIDE, MICRONIZED 3 MG CAP PO SCH (08:44)
[2018-02-10] MEDS: ATORVASTATIN 80 MG TAB PO SCH (08:44)
[2018-02-10] MEDS: POTASSIUM CL SA 10 MEQ TAB PO SCH (08:44)
[2018-02-10] MEDS: LOSARTAN POTASSIUM 50 MG TABLET PO SCH (08:44)
[2018-02-10] MEDS: APIXABAN 5 MG TABLET PO SCH ×2 (08:44→21:16)
[2018-02-10] MEDS: FINASTERIDE 5 MG TAB PO SCH (08:45)
[2018-02-10] MEDS: PANTOPRAZOLE 40MG TABLET PO SCH (08:45)
[2018-02-10] MEDS: METOPROLOL XL 25 MG TAB PO SCH (08:45)
[2018-02-10] MEDS: SERTRALINE HCL 100 MG TAB PO SCH (08:45)
[2018-02-10] MEDS: IPRATROPIUM BROM 0.5MG/2.5ML NEB PRN ×2 (12:20→23:06)
[2018-02-10] MEDS: VANCOMYCIN 2 GM in NA CHLORIDE 0.9% 500 ML IVPB SCH (14:25)
[2018-02-10] MEDS: FUROSEMIDE 40 MG TABLET PO SCH (21:16)
[2018-02-10] MEDS: ALBUTEROL 2.5 MG/3 ML NEB SOL NEB PRN (23:06)
[2018-02-10] MEDS ORDERED: CLOTRIMAZ/BETAMETH CREAM 15GM TOP PRN (23:52)
--- NOTE | 2018-02-11 03:46 | CON ---
Date of Consultation: 02/10/2018 Reason For Service: Cellulitis of the leg, foot with necrotic diabetic ulcers on the first toe and f ourth toe. History: This is a case of a 73-year-old patient with multiple medical problems, admitted to the [facility] with medical issues. Found to have cellulitis of the entire lower leg area and foot region wit h necrotic diabetic ulcer over the foot region and also fourth toe associated with drainage and itchi ness. The patient does not remember exactly how this happened. He said he has no sensation in that area so he does not really pay much attention to it. He denies any dysuria, hematuria, hematochezia, or melena. Denies any recent traveling out of country. Denies any family member sick at home. Past Medical History: Includes congestive heart failure, AFib, Crohn disease, depression, diabetes, hypertension. Medications: Reviewed. Allergies: NONE. Family History: Noncontributory. Social History: He does not smoke. He does not drink alcohol. Review of Systems: Constitutional: He denies any fever, any chills. Respiratory: Patient states cough present. No hemoptysis. Abdomen: Denies any nausea, vomiting, or melena. Patient advised importance of colonoscopies. Genitourinary: Denies any dysuria, hematuria. Physical Examination: General: The patient is awake and alert. No distress. HEENT: Pupils anicteric. Neck: Supple. Abdomen: Soft and depressible. No guarding or rebound. Extremities: Bilateral lower extremity dorsalis pedis diminished bilaterally. Patient states it is chronic. On the right foot and leg, patient has multiple problems at the same time. So to start wit h, we have cellulitis involving the entire leg with redness in the foot region. It is red, it is war m with swelling associated with it. Then on the foot area, we have a diabetic necrotic ulcer, althou gh is dry on the first toe region medial side about 2 x 2 cm. Then this is aggravated by superimpose d fungal infection between the toes 2 to 4th. The worst is on the with blisters from a fu ngal infection present that were partially broken and cleaned with a 4x4 with humidity present betwee n those toes. There is a small ulcer, also diabetic ulcer in that fourth toe. No cyanosis. Neuro: Patient has neuropathies. Laboratory Data: Blood work shows WBC count of 9 with hemoglobin of 11.9. Creatinine is 1.2, alkali ne phosphate 124. Right foot x-ray showing some demineralization of the right phalanx. Osteomyeliti s cannot be ruled out. Assessment: This is a 73-year-old patient with right leg and right foot cellulitis with diabetic ulc er over the first toe and fungal infection with blisters in the rest of the toes. Also x-rays sugges ting could be osteomyelitis over the first toe. Plan: 1.For the antibiotics, we are going to continue treatment. From the vascular standpoint, we are going to see if he has any previous arterial Doppler. If not, we may consider that in the ne xt few days or when he gets into treatment into a [facility]. 2.From the diabetic foot standpoint, we might use Santyl over the first toe. 3.For the fungal infection, we are going to use Lotrisone between the toes. 4.To rule out osteomyelitis, we might also get an MRI to rule out osteomyelitis of the first toe. W hen this patient gets discharged, we would like this patient to be seen also at the [facility]. BEST/IVORY Voice ID: [id number] Report ID: [id number]
--- NOTE | 2018-02-11 04:25 | HP ---
Date of Admission: 02/09/2018 Chief Complaint: Pain, redness. History Of Present Illness: A 73-year-old male was brought to the office with multiple complaints, b ut he was found to have necrotizing cellulitis of the right foot with open wounds in view of his diab etes and previous amputation of the foot. The patient is admitted for IV vancomycin therapy and poss ible debridement. Past Medical History: Positive for type 2 diabetes, COPD, congestive heart failure, hypertension, hy perlipidemia, osteoarthritis, chronic atrial fibrillation. Family History: Noncontributory. Personal History: Nonsmoker currently. Allergies: NONE. Home Medicines: Please refer to the chart. Review of Systems: The patient denied any history of fever, chills, rigors. Physical Examination: General: Revealed a 73-year-old male, alert for his age. HEENT: Negative. Neck: Supple. JVD negative. Chest: Scattered wheezes. Heart: Irregularity noted. Abdomen: Soft. Extremities: The right foot has open wound of the big toe. Interdigital space is necrotic with the denuded skin. Pedal pulses poor to absent. Pedal edema 1+. Laboratory Data: White count normal. X-ray of the foot, some demineralization of the distal phalanx , big toe noted. Assessment: 1.Necrotizing cellulitis, right foot. 2.Type 2 diabetes. 3.Hypertension. 4.Congestive heart failure. 5.Chronic obstructive pulmonary disease. 6.Depression. 7.Hyperlipidemia. 8.Atrial fibrillation. Plan: The patient is started on vancomycin, and surgical consultation has been done to see whether d ebridement would be necessary. The patient already had a partial amputation of the left foot for sim ilar infection in the past. Meanwhile, his medications will be restarted. He will be put on a sliding scale of insulin in additi on to the long-acting insulin. ZAIRA/CHRISTIANAL Voice ID: [id number]
[2018-02-11] MEDS: ISOSORBIDE MONONITRATE PO SCH (08:28)
[2018-02-11] MEDS: HOME MED 1 EA UNK (Budesonide/Formoterol Fumarate [Symbicort 160-4.5 Mcg Inhaler] 2 PUFF) IH SCH ×2 (08:28→21:00)
[2018-02-11] MEDS: ALBUTEROL 2.5 MG/3 ML NEB SOL NEB PRN ×2 (08:32→20:51)
[2018-02-11] MEDS: IPRATROPIUM BROM 0.5MG/2.5ML NEB PRN ×2 (08:32→20:51)
[2018-02-11] MEDS: BUDESONIDE, MICRONIZED 3 MG CAP PO SCH (08:40)
[2018-02-11] MEDS: INSULIN DETEMIR 100 UNIT/1 ML INSULIN SQ SCH ×2 (08:42→16:53)
[2018-02-11] MEDS: INSULIN -REGULAR HUMAN 50 UNIT/0.5 ML ML SQ SCH ×4 (08:42→21:19)
[2018-02-11] MEDS: LOSARTAN POTASSIUM 50 MG TABLET PO SCH (08:43)
[2018-02-11] MEDS: DOCUSATE NA 100 MG CAP PO SCH ×2 (08:43→21:23)
[2018-02-11] MEDS: SOTALOL HCL 80 MG TAB PO SCH ×2 (08:43→21:17)
[2018-02-11] MEDS: ASPIRIN 81 MG CHEWABLE TABLET PO SCH (08:43)
[2018-02-11] MEDS: ATORVASTATIN 80 MG TAB PO SCH (08:44)
[2018-02-11] MEDS: APIXABAN 5 MG TABLET PO SCH ×2 (08:44→21:17)
[2018-02-11] MEDS: POTASSIUM CL SA 10 MEQ TAB PO SCH (08:44)
[2018-02-11] MEDS: PANTOPRAZOLE 40MG TABLET PO SCH (08:45)
[2018-02-11] MEDS: FINASTERIDE 5 MG TAB PO SCH (08:45)
[2018-02-11] MEDS: METOPROLOL XL 25 MG TAB PO SCH (08:45)
[2018-02-11] MEDS: COLLAGENASE 30 GM OINTMENT TOP SCH (08:45)
[2018-02-11] MEDS: VANCOMYCIN 2 GM in NA CHLORIDE 0.9% 500 ML IVPB SCH (08:46)
[2018-02-11] MEDS: SERTRALINE HCL 100 MG TAB PO SCH (08:46)
--- NOTE | 2018-02-11 19:34 | PN ---
The patient is doing better. However, there is still drainage from the foot and swelling. He is mai ble to ambulate. He is afebrile. He is seen by Dr. Danielle; however, he is not planning any debridem ent, he wants IV antibiotics continued. ZAIRA/IVORY Voice ID: [id number] Report ID: [id number]
[2018-02-11] MEDS: FUROSEMIDE 40 MG TABLET PO SCH (21:17)
[2018-02-12] MEDS: VANCOMYCIN 2 GM in NA CHLORIDE 0.9% 500 ML IVPB SCH ×3 (02:53→10:44)
[2018-02-12] MEDS: IPRATROPIUM BROM 0.5MG/2.5ML NEB PRN ×2 (07:43→18:35)
[2018-02-12] MEDS: ALBUTEROL 2.5 MG/3 ML NEB SOL NEB PRN ×2 (07:44→18:35)
[2018-02-12] MEDS: SOTALOL HCL 80 MG TAB PO SCH ×2 (08:25→20:51)
[2018-02-12] MEDS: INSULIN DETEMIR 100 UNIT/1 ML INSULIN SQ SCH ×2 (08:25→16:28)
[2018-02-12] MEDS: ATORVASTATIN 80 MG TAB PO SCH (08:26)
[2018-02-12] MEDS: LOSARTAN POTASSIUM 50 MG TABLET PO SCH (08:26)
[2018-02-12] MEDS: INSULIN -REGULAR HUMAN 50 UNIT/0.5 ML ML SQ SCH ×4 (08:26→20:50)
[2018-02-12] MEDS: METOPROLOL XL 25 MG TAB PO SCH (08:27)
[2018-02-12] MEDS: SERTRALINE HCL 100 MG TAB PO SCH (08:27)
[2018-02-12] MEDS: DOCUSATE NA 100 MG CAP PO SCH ×2 (08:27→20:52)
[2018-02-12] MEDS: FINASTERIDE 5 MG TAB PO SCH (08:27)
[2018-02-12] MEDS: HOME MED 1 EA UNK (Budesonide/Formoterol Fumarate [Symbicort 160-4.5 Mcg Inhaler] 2 PUFF) IH SCH ×2 (08:28→20:51)
[2018-02-12] MEDS: APIXABAN 5 MG TABLET PO SCH ×2 (08:28→20:51)
[2018-02-12] MEDS: PANTOPRAZOLE 40MG TABLET PO SCH (08:28)
[2018-02-12] MEDS: POTASSIUM CL SA 10 MEQ TAB PO SCH (08:28)
[2018-02-12] MEDS: ASPIRIN 81 MG CHEWABLE TABLET PO SCH (08:28)
[2018-02-12] MEDS: BUDESONIDE, MICRONIZED 3 MG CAP PO SCH (08:29)
[2018-02-12] MEDS: ISOSORBIDE MONONITRATE PO SCH (08:29)
[2018-02-12] MEDS: COLLAGENASE 30 GM OINTMENT TOP SCH (08:29)
--- NOTE | 2018-02-12 11:42 | P.PN ---
Subjective Date of Service: 02/12/18 Chief Complaint: cellulitis , diabetic ulcer Subjective: Tolerating diet, Improving Review of Systems General: Unremarkable Gastrointestinal: Unremarkable Genitourinary: Unremarkable Musculoskeletal: As per HPI Integumentary: As per HPI Physical Examination - Vital Signs Temperature: 97.4 F Blood Pressure: 159/77 Pulse: 74 Respirations: 18 Pulse Ox (%): 97 - Physical Exam General: Alert, In no apparent distress, Oriented x3 HEENT: PERRLA, EOMI Neck: Supple Cardiovascular: Edema (decreasing) Gastrointestinal: Soft and benign Musculoskeletal: Erythema (better) Integumentary: No cyanosis, Diabetic ulcer Neurological: Normal speech - Studies Laboratory Data (last 24 hrs) 02/12/18 07:58: Creatinine 1.20 Microbiology Data (last 24 hrs): 02/09/18 17:54 Wound - Right Foot Gram Stain - Final 02/09/18 17:54 Wound - Right Foot Culture & Sensitivity - Final Meth Resistant Staph Aureus Assessment And Plan - Plan continue same dressing changes F/U at wound healing center in a week ( monday) diabetes control leg elevation
[2018-02-12] MEDS: FUROSEMIDE 40 MG TABLET PO SCH (20:52)
--- NOTE | 2018-02-13 01:33 | PN ---
The patient's leg looks better. There is no expression of purulent material anymore. The patient ho wever would need IV antibiotics if he has MRSA. Consult has been done with the social media [facility] to thai reddy for outpatient vancomycin therapy. ZAIRA/IVORY Voice ID: [id number] Report ID: [id number]
[2018-02-13] MEDS: INSULIN -REGULAR HUMAN 50 UNIT/0.5 ML ML SQ SCH ×4 (08:33→21:52)
[2018-02-13] MEDS: PANTOPRAZOLE 40MG TABLET PO SCH (08:34)
[2018-02-13] MEDS: INSULIN DETEMIR 100 UNIT/1 ML INSULIN SQ SCH ×2 (08:34→16:54)
[2018-02-13] MEDS: ASPIRIN 81 MG CHEWABLE TABLET PO SCH (08:34)
[2018-02-13] MEDS: SOTALOL HCL 80 MG TAB PO SCH ×2 (08:35→21:53)
[2018-02-13] MEDS: SERTRALINE HCL 100 MG TAB PO SCH (08:35)
[2018-02-13] MEDS: ATORVASTATIN 80 MG TAB PO SCH (08:36)
[2018-02-13] MEDS: LOSARTAN POTASSIUM 50 MG TABLET PO SCH (08:36)
--- NOTE | 2018-02-13 08:36 | RAD REPORT ---
EXAM DESCRIPTION: RAD - Chest Single View - 02/13/2018 2:32 am CLINICAL HISTORY: PICC Placement COMPARISON: Chest Single View dated 01/11/2018; Chest Single View dated 12/17/2017; Chest Single View dated 12/02/2017; Chest Single View dated 10/22/2017 FINDINGS: Portable chest was obtained following placement of a right upper extremity PICC line. The catheter tip projects over the SVC..
[2018-02-13] MEDS: BUDESONIDE, MICRONIZED 3 MG CAP PO SCH (08:37)
[2018-02-13] MEDS: METOPROLOL XL 25 MG TAB PO SCH (08:37)
[2018-02-13] MEDS: DOCUSATE NA 100 MG CAP PO SCH ×2 (08:38→21:53)
[2018-02-13] MEDS: POTASSIUM CL SA 10 MEQ TAB PO SCH (08:38)
[2018-02-13] MEDS: APIXABAN 5 MG TABLET PO SCH ×2 (08:38→21:53)
[2018-02-13] MEDS: FINASTERIDE 5 MG TAB PO SCH (08:38)
[2018-02-13] MEDS: ISOSORBIDE MONONITRATE PO SCH (08:39)
[2018-02-13] MEDS: HOME MED 1 EA UNK (Budesonide/Formoterol Fumarate [Symbicort 160-4.5 Mcg Inhaler] 2 PUFF) IH SCH ×2 (08:39→21:00)
[2018-02-13] MEDS: COLLAGENASE 30 GM OINTMENT TOP SCH (08:41)
[2018-02-13] MEDS: IPRATROPIUM BROM 0.5MG/2.5ML NEB PRN (10:16)
[2018-02-13] MEDS: ALBUTEROL 2.5 MG/3 ML NEB SOL NEB PRN (10:16)
[2018-02-13] MEDS: VANCOMYCIN 2 GM in NA CHLORIDE 0.9% 500 ML IVPB SCH (11:01)
[2018-02-13] MEDS: FUROSEMIDE 40 MG TABLET PO SCH (21:53)
[2018-02-14 05:08] VITALS: BMI 30.7
[2018-02-14] MEDS: IPRATROPIUM BROM 0.5MG/2.5ML NEB PRN (05:10)
[2018-02-14] MEDS: ALBUTEROL 2.5 MG/3 ML NEB SOL NEB PRN (05:10)
[2018-02-14] MEDS: DOCUSATE NA 100 MG CAP PO SCH (09:00)
[2018-02-14] MEDS: HOME MED 1 EA UNK (Budesonide/Formoterol Fumarate [Symbicort 160-4.5 Mcg Inhaler] 2 PUFF) IH SCH (09:00)
[2018-02-14] MEDS: ISOSORBIDE MONONITRATE PO SCH (09:00)
[2018-02-14] MEDS: COLLAGENASE 30 GM OINTMENT TOP SCH (09:00)
[2018-02-14] MEDS: SOTALOL HCL 80 MG TAB PO SCH (09:15)
[2018-02-14] MEDS: BUDESONIDE, MICRONIZED 3 MG CAP PO SCH (09:16)
[2018-02-14] MEDS: SERTRALINE HCL 100 MG TAB PO SCH (09:16)
[2018-02-14] MEDS: POTASSIUM CL SA 10 MEQ TAB PO SCH (09:16)
[2018-02-14] MEDS: APIXABAN 5 MG TABLET PO SCH (09:17)
[2018-02-14] MEDS: ATORVASTATIN 80 MG TAB PO SCH (09:17)
[2018-02-14] MEDS: METOPROLOL XL 25 MG TAB PO SCH (09:17)
[2018-02-14] MEDS: ASPIRIN 81 MG CHEWABLE TABLET PO SCH (09:17)
[2018-02-14] MEDS: LOSARTAN POTASSIUM 50 MG TABLET PO SCH (09:17)
[2018-02-14] MEDS: FINASTERIDE 5 MG TAB PO SCH (09:18)
[2018-02-14] MEDS: PANTOPRAZOLE 40MG TABLET PO SCH (09:18)
[2018-02-14] MEDS: INSULIN DETEMIR 100 UNIT/1 ML INSULIN SQ SCH (09:20)
[2018-02-14] MEDS: INSULIN -REGULAR HUMAN 50 UNIT/0.5 ML ML SQ SCH ×2 (09:21→12:30)
[2018-02-14] MEDS: VANCOMYCIN 2 GM in NA CHLORIDE 0.9% 500 ML IVPB SCH (10:13)
[2018-02-14 13:47] VITALS: BP 149/68; TEMP 97.2
[2018-02-14 15:40] VITALS: O2SAT 98
--- NOTE | 2018-03-23 15:40 | DS ---
Date of Discharge: 02/14/2018 Final Diagnoses: 1.Necrotizing cellulitis, right foot. 2.Type 2 diabetes. 3.Hypertension. 4.Congestive heart failure. 5.Chronic obstructive pulmonary disease. 6.Depression. 7.Hyperlipidemia. 8.Chronic atrial fibrillation. Hospital Course: This patient was admitted because of linh necrotizing cellulitis with type 2 diabe leander. The patient after admission was started on IV vancomycin. The patient had prior history of par tial amputation of the foot. Surgical consultation was done. The patient showed improvement with IV antibiotics. He received care of the wound on the floor. The patient was discharged home on 02/14 to have follow up in [facility]. Laboratory Data: Admission white count normal. For blood sugars and chemistry, please refer to the chart. ZAIRA/IVORY Voice ID: [id number] Report ID: [id number]
== END 2018-02-14 16:09 | disposition home health service (06) | DRG 300 ==
LOC: 2ND 16:30
PROVIDERS: ADMIT Internal Medicine; ATTEND Internal Medicine
PROC: 02HV33Z Insertion of Infusion Device into Superior Vena Cava, Percutaneous Approach (ICD-10-PCS; principal; 2018-02-13)
DX: I96 Gangrene, not elsewhere classified (principal); L03.116 Cellulitis of left lower limb; K50.90 Crohn's disease, unspecified, without complications; M86.8X7 Other osteomyelitis, ankle and foot; E11.52 Type 2 diabetes mellitus with diabetic peripheral angiopathy with gangrene; B95.62 Methicillin resistant Staphylococcus aureus infection as the cause of diseases classified elsewhere; E11.621 Type 2 diabetes mellitus with foot ulcer; L97.511 Non-pressure chronic ulcer of other part of right foot limited to breakdown of skin; I11.0 Hypertensive heart disease with heart failure; I50.9 Heart failure, unspecified; J44.9 Chronic obstructive pulmonary disease, unspecified; F32.9 Major depressive disorder, single episode, unspecified; E78.5 Hyperlipidemia, unspecified; Z89.432 Acquired absence of left foot; I48.2 Chronic atrial fibrillation; M19.90 Unspecified osteoarthritis, unspecified site; E11.40 Type 2 diabetes mellitus with diabetic neuropathy, unspecified; B35.3 Tinea pedis; E11.69 Type 2 diabetes mellitus with other specified complication
CPT/HCPCS: 36415; 71045; 80053; 80202; 81003; 81015; 82565; 82962; 85025; 87040; 87070; 87077; 87186; 87205; 94640; J3590

== ENCOUNTER 2018-03-13 10:29 | Observation (INO) | payer OTHER ==
--- OUTSIDE RECORDS SUMMARY | 2018-03-13 10:45 | XMS REPORT | Clinical Summary ---
:1945 Author Organization [facility] Address [address] [place] [address] Care Team Providers Name Role Phone Asked, [...] Not on file Results Not on fileafter 03/12/2017 Insurance Payer Benefit Plan / Group Subscriber ID Type Phone Address [facility] xxxxxxxxx O Home: [address] [place], [place] [phone] [id number]
[2018-03-13] MEDS ORDERED: ALBUTEROL 2.5 MG/3 ML NEB SOL ONE (10:59)
[2018-03-13] MEDS ORDERED: IPRATROPIUM BROM 0.5MG/2.5ML ONE (10:59)
[2018-03-13 11:14] LABS: Absolute Lymphocytes (CBC) 1.4 K/uL (0.7-4.9); Absolute Monocytes 0.9 K/uL (0.1-1.3); Absolute Neutrophil 9.6 K/uL (1.8-8.0); Basophils % 1.1 % (0-1.3); Eosinophils % 5.4 % (0-4.4); MCH 28.8 pg (27.0-35.0); MCV 86.7 fL (80-100); MPV 8.3 fL (7.6-11.3); Monocytes % 7.2 % (3.3-12.3); RBC Red Blood Cell Count 3.69 M/uL (4.33-5.43)
[2018-03-13 11:18] LABS: Protime INR 1.38
--- NOTE | 2018-03-13 11:22 | RAD REPORT ---
EXAM DESCRIPTION: [place] Single View03/13/2018 11:06 am CLINICAL HISTORY: Shortness of breath COMPARISON: November 2017 FINDINGS: An opacity within the left lung base represents epicardial fat The lungs appear clear of acute infiltrate. The heart is normal size IMPRESSION: No acute abnormalities displayed
[2018-03-13 11:55] LABS: ALT/SGPT 26 U/L (12-78); AST/SGOT 17 U/L (15-37); Albumin 2.8 g/dL (3.4-5.0); Alkaline Phosphatase 154 U/L (45-117); BUN Blood Urea Nitrogen 39 mg/dL (7-18); Bicarbonate 36 mmol/L (21-32); Bilirubin Direct 0.1 mg/dL (0-0.2); Bilirubin Total 0.3 mg/dL (0.2-1.0); CKMB Creatine Kinase MB < 1.0 ng/mL (0.3-3.6); Creatine Phosphokinase 36 U/L (39-308); Glucose Level 297 mg/dL (74-106); Magnesium 2.1 mg/dL (1.8-2.4); NT PRO-BNP 379 pg/mL (<125); Potassium 4.3 mmol/L (3.5-5.1); Protein, Total 7.7 g/dL (6.4-8.2); Sodium Level 135 mmol/L (136-145)
--- NOTE | 2018-03-13 12:50 | ER ---
Nurse's Notes [facility] Name: Jethro Burden Age: 73 yrs Sex: Male : 1945 Arrival Date: 03/13/2018 Time: 10:34 Bed 8 Private MD: Cordell Herrera R Diagnosis: Chronic obstructive pulmonary disease with (acute) exacerbation Presentation: 03/13 10:53 Presenting complaint: Patient states: started feeling very SOB 2-3 hours ago when he iw was getting ready to go o wound healing, hx of COPD, also has had a bad cough. Transition of care: patient was not received from another setting of care. Onset of symptoms was March 13, 2018. Risk Assessment: Do you want to hurt yourself or someone else? Patient reports no desire to harm self or others. Initial Sepsis Screen: Does the patient meet any 2 criteria? No. Patient's initial sepsis screen is negative. Does the patient have a suspected source of infection? No. Patient's initial sepsis screen is negative. Care prior to arrival: None. 10:53 Method Of Arrival: Wheelchair iw 10:53 Acuity: TAN 3 iw Historical: - Allergies: 11:00 NKDA; iw - Home Meds: 11:00 Albuterol Inhl [Active]; albuterol sulfate 2.5 mg /3 mL (0.083 %) Inhl nebu 3 mL Q4H iw prn [Active]; apixaban 5 mg Oral 1 tab 2 times per day [Active]; aspirin 81 mg Oral TbEC 1 tab once daily [Active]; atorvastatin 80 mg Oral tab 0.5 tab once daily [Active]; budesonide 3 mg Oral CECX 3 caps once daily [Active]; budesonide-formoterol inhalation 2 puffs 2 times per day [Active]; cyanocobalamin (vitamin B-12) 100 mcg Oral tab daily [Active]; docusate sodium 100 mg Oral cap 1 cap 2 times per day [Active]; ferrous gluconate 324 mg (36 mg iron) Oral tab twice a day [Active]; finasteride 5 mg Oral tab 1 tab once daily [Active]; furosemide 40 mg Oral tab 3 tabs in am and 2 tabs in pm [Active]; gabapentin 100 mg Oral cap 1 caps 3 times per day [Active]; insulin aspart subcutaneous 35 unit before meals [Active]; insulin detemir subcutaneous 70 units in am and 45 units in pm [Active]; ipratropium bromide 0.02 % inhalation soln 2.5 mL every 6 hours [Active]; isosorbide mononitrate 20 mg Oral tab 4 tab daily [Active]; losartan 100 mg Oral tab 1 tab once daily [Active]; magnesium oxide 420 mg Oral tab daily [Active]; metoprolol tartrate 50 mg Oral tab 1 tab once daily [Active]; pantoprazole 40 mg Oral TbEC 1 tab once daily [Active]; potassium chloride 10 mEq Oral cpER 2 caps once daily [Active]; potassium chloride 10 mEq Oral cpER 2 caps once daily [Active]; sertraline 100 mg Oral tab 1 tab once daily [Active]; sotalol 120 mg Oral tab 1 tab 2 times per day [Active]; - PMHx: 11:00 Atrial Fib; CHF; COPD; Crohn's; Depression; Diabetes - IDDM; Hyperlipidemia; iw Hypertension; prostate problems; - PSHx: 11:00 Heart stents; colon resection; Hernia repair; iw - Ebola Screening: : Patient negative for fever greater than or equal to 101.5 degrees Fahrenheit, and additional compatible Ebola Virus Disease symptoms Patient denies exposure to infectious person Patient denies travel to an Ebola-affected area in the 21 days before illness onset No symptoms or risks identified at this time. Screenin:00 Abuse screen: Denies threats or abuse. Denies injuries from another. Nutritional iw screening: No deficits noted. Tuberculosis screening: No symptoms or risk factors identified. Assessment: 10:30 General: Appears in no apparent distress. comfortable, well groomed, well developed, sg well nourished, Behavior is calm, cooperative, appropriate for age. Pain: Denies pain. Neuro: No deficits noted. Cardiovascular: Heart tones S1 S2 present Capillary refill < 3 seconds is brisk in bilateral fingers Patient's skin is warm and dry. Chest pain is denied. Respiratory: Airway is patent Respiratory effort is even, labored, Respiratory pattern is regular, tachypnea Breath sounds with wheezes. GI: No deficits noted. Abdomen is round non-distended, obese, Bowel sounds present X 4 quads. Abd is soft and non tender X 4 quads. : No signs and/or symptoms were reported regarding the genitourinary system. EENT: No signs and/or symptoms were reported regarding the EENT system. Derm: Skin is pink, warm \T\ dry. Musculoskeletal: No signs and/or symptoms reported regarding the musculoskeletal system. 11:30 Reassessment: Patient appears in no apparent distress at this time. Patient and/or sg family updated on plan of care and expected duration. Pain level reassessed. Patient is alert, oriented x 3, equal unlabored respirations, skin warm/dry/pink. Patient states feeling better. 12:30 Reassessment: Patient appears in no apparent distress at this time. Patient and/or sg family updated on plan of care and expected duration. Pain level reassessed. Patient is alert, oriented x 3, equal unlabored respirations, skin warm/dry/pink. Patient states feeling better. 13:42 Reassessment: a bed assignment has been made, nurse unavailable, instructed to please sg call back in 15 mins. pt updated on POC, pt and pt family stated understanding. Vital Signs: 11:00 BP 122 / 61; Pulse 80; Resp 20 S; Pulse Ox 100% on 3 lpm NC; Weight 105.23 kg; Height 6 iw ft. 0 in. (182.88 cm); Pain 0/10; 11:44 BP 138 / 57; Pulse 78; Resp 17; Pulse Ox 100% on R/A; Pain 0/10; ss 14:00 BP 125 / 62; Pulse 76; Resp 12 S; Temp 97.6; Pulse Ox 98% on 3 lpm NC; Pain 0/10; sg 11:00 Body Mass Index 31.46 (105.23 kg, 182.88 cm) iw Kiya Coma Score: 14:00 Eye Response: spontaneous(4). Verbal Response: oriented(5). Motor Response: obeys sg commands(6). Total: 15. ED Course: 10:34 Patient arrived in ED. jb7 10:34 Cordell Herrera MD is Private Physician. jb7 10:43 Luis Pagan MD is Attending Physician. tw4 10:43 Raphael Reyes, RYLEE is Primary Nurse. sg 10:54 Triage completed. iw 11:02 Arm band placed on. iw 11:03 X-ray completed. Portable x-ray completed in exam room. Patient tolerated procedure jb2 well. 11:04 XRAY Chest (1 view) In Process Unspecified. EDMS 11:13 EKG done, by dietary tech. reviewed by Luis Pagan MD. at1 11:14 Initial lab(s) drawn, by me, sent to lab. Inserted saline lock: 20 gauge in left jb1 antecubital area, using aseptic technique. Blood collected. 12:49 Cordell Herrera MD is Hospitalizing Provider. tw4 Administered Medications: 10:59 Drug: Albuterol - atroVENT (3:1) (2.5 mg - 0.5 mg) 3 ml Route: Nebulizer; sg 11:40 Follow up: Response: No adverse reaction; No adverse reaction, Pt reports no ss significant change Outcome: 12:50 Decision to Hospitalize by Provider. tw4 14:46 Patient left the ED. sg Signatures: Dispatcher [employer] EDMS Rainer Dejesus jb1 Raphael Reyes, RN RN Antoine Torre jb2 Migdalia Quintero, RN RYLEE Raisa Solorzano RN RN ss Teri galicia, brim curler EKG Tat1 [facility] jb7 Luis Pagan MD MD tw4
--- NOTE | 2018-03-13 12:50 | EDPHYS ---
Physician Documentation [facility] Name: Jethro Burden Age: 73 yrs Sex: Male : 1945 Arrival Date: 03/13/2018 Time: 10:34 Bed 8 Private MD: Cordell Herrera R ED Physician Luis Pagan HPI: 03/13 11:17 This 73 yrs old Male presents to ER via Wheelchair with complaints of tw4 Breathing Difficulty. 11:17 The patient has shortness of breath at rest. Onset: The symptoms/episode began/occurred tw4 just prior to arrival, today. Duration: The symptoms are continuous, and are unchanged since they started, and are steadily getting worse. The patient's shortness of breath is aggravated by exertion. Associated signs and symptoms: The patient has no apparent associated signs or symptoms. Severity of symptoms: At their worst the symptoms were moderate in the emergency department the symptoms have resolved. The patient has experienced similar episodes in the past, chronically. The patient has not recently seen a physician. Historical: - Allergies: 11:00 NKDA; iw - Home Meds: 11:00 Albuterol Inhl [Active]; albuterol sulfate 2.5 mg /3 mL (0.083 %) Inhl nebu 3 mL Q4H iw prn [Active]; apixaban 5 mg Oral 1 tab 2 times per day [Active]; aspirin 81 mg Oral TbEC 1 tab once daily [Active]; atorvastatin 80 mg Oral tab 0.5 tab once daily [Active]; budesonide 3 mg Oral CECX 3 caps once daily [Active]; budesonide-formoterol inhalation 2 puffs 2 times per day [Active]; cyanocobalamin (vitamin B-12) 100 mcg Oral tab daily [Active]; docusate sodium 100 mg Oral cap 1 cap 2 times per day [Active]; ferrous gluconate 324 mg (36 mg iron) Oral tab twice a day [Active]; finasteride 5 mg Oral tab 1 tab once daily [Active]; furosemide 40 mg Oral tab 3 tabs in am and 2 tabs in pm [Active]; gabapentin 100 mg Oral cap 1 caps 3 times per day [Active]; insulin aspart subcutaneous 35 unit before meals [Active]; insulin detemir subcutaneous 70 units in am and 45 units in pm [Active]; ipratropium bromide 0.02 % inhalation soln 2.5 mL every 6 hours [Active]; isosorbide mononitrate 20 mg Oral tab 4 tab daily [Active]; losartan 100 mg Oral tab 1 tab once daily [Active]; magnesium oxide 420 mg Oral tab daily [Active]; metoprolol tartrate 50 mg Oral tab 1 tab once daily [Active]; pantoprazole 40 mg Oral TbEC 1 tab once daily [Active]; potassium chloride 10 mEq Oral cpER 2 caps once daily [Active]; potassium chloride 10 mEq Oral cpER 2 caps once daily [Active]; sertraline 100 mg Oral tab 1 tab once daily [Active]; sotalol 120 mg Oral tab 1 tab 2 times per day [Active]; - PMHx: 11:00 Atrial Fib; CHF; COPD; Crohn's; Depression; Diabetes - IDDM; Hyperlipidemia; iw Hypertension; prostate problems; - PSHx: 11:00 Heart stents; colon resection; Hernia repair; iw - Ebola Screening: : Patient negative for fever greater than or equal to 101.5 degrees Fahrenheit, and additional compatible Ebola Virus Disease symptoms Patient denies exposure to infectious person Patient denies travel to an Ebola-affected area in the 21 days before illness onset No symptoms or risks identified at this time. ROS: 11:17 Respiratory: Positive for cough, dyspnea on exertion, shortness of breath, at rest. tw4 Negative for hemoptysis, orthopnea. 11:17 Constitutional: Negative for fever, chills, and weight loss, Eyes: Negative for injury, tw4 pain, redness, and discharge, Cardiovascular: Negative for chest pain, palpitations, and edema, Abdomen/GI: Negative for abdominal pain, nausea, vomiting, diarrhea, and constipation, Back: Negative for injury and pain, MS/Extremity: Negative for injury and deformity, Skin: Negative for injury, rash, and discoloration, Neuro: Negative for headache, weakness, numbness, tingling, and seizure. Exam: 11:17 Head/Face: Normocephalic, atraumatic. Eyes: Pupils equal round and reactive to light, tw4 extra-ocular motions intact. Lids and lashes normal. Conjunctiva and sclera are non-icteric and not injected. Cornea within normal limits. Periorbital areas with no swelling, redness, or edema. Chest/axilla: Normal chest wall appearance and motion. Nontender with no deformity. No lesions are appreciated. Cardiovascular: Regular rate and rhythm with a normal S1 and S2. No gallops, murmurs, or rubs. Normal PMI, no JVD. No pulse deficits. 11:17 Constitutional: The patient appears alert, in obvious distress, mildly distressed. 11:17 Respiratory: mild respiratory distress is noted, Respirations: pursed lip breathing, that is mild. Vital Signs: 11:00 BP 122 / 61; Pulse 80; Resp 20 S; Pulse Ox 100% on 3 lpm NC; Weight 105.23 kg; Height 6 iw ft. 0 in. (182.88 cm); Pain 0/10; 11:44 BP 138 / 57; Pulse 78; Resp 17; Pulse Ox 100% on R/A; Pain 0/10; ss 14:00 BP 125 / 62; Pulse 76; Resp 12 S; Temp 97.6; Pulse Ox 98% on 3 lpm NC; Pain 0/10; sg 11:00 Body Mass Index 31.46 (105.23 kg, 182.88 cm) iw Kiya Coma Score: 14:00 Eye Response: spontaneous(4). Verbal Response: oriented(5). Motor Response: obeys sg commands(6). Total: 15. MDM: 10:43 Patient medically screened. tw4 13:03 Differential diagnosis: asthma, Bronchitis CHF exacerbation, Chronic Obstructive tw4 Pulmonary Disease pneumonia, pulmonary edema, reactive airway disease. Data reviewed: vital signs, nurses notes. 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 Interpretation: normal. Test interpretation: by ED physician or midlevel provider: ECG, plain radiologic studies. Counseling: I had a detailed discussion with the patient and/or guardian regarding: the historical points, exam findings, and any diagnostic results supporting the discharge/admit diagnosis, lab results, radiology results, the need for further work-up and treatment in the hospital. Physician consultation: Cordell Herrera MD regarding admission, patient's condition, need to evaluate the patient as soon as possible, and will see patient in inpatient room. Admission orders: after a detailed discussion of the patient's condition and case, the admit orders are written by me. 03/13 10:51 Order name: Basic Metabolic Panel 03/13 10:51 Order name: CBC with Diff; Complete Time: 11:44 03/13 11:45 Interpretation: Normal except: WBC 12.7; RBC 3.69; HGB 10.6; HCT 32.0; RDW 15.5; ROBSON% tw4 75.3; LYM% 11.0; EOSINOPHIL % 5.4; NEUT A 9.6; EOSA 0.7. 03/13 10:51 Order name: Ckmb 03/13 10:51 Order name: CPK 03/13 10:51 Order name: LFT's 03/13 10:51 Order name: Magnesium 03/13 10:51 Order name: NT PRO-BNP 03/13 10:51 Order name: PT-INR; Complete Time: 11:44 03/13 11:45 Interpretation: Normal except: PT 16.3. 03/13 10:51 Order name: Ptt, Activated; Complete Time: 11:44 03/13 11:45 Interpretation: Within normal limits: PTT 34.2. 03/13 10:51 Order name: Troponin (emerg Dept Use Only); Complete Time: 11:45 03/13 11:45 Interpretation: Within normal limits: TROPED < 0.02. 03/13 10:51 Order name: XRAY Chest (1 view); Complete Time: 11:44 03/13 10:51 Order name: EKG; Complete Time: 10:52 03/13 10:51 Order name: Cardiac monitoring; Complete Time: 10:52 03/13 10:51 Order name: EKG - Nurse/Tech; Complete Time: 10:52 03/13 10:51 Order name: IV Saline Lock; Complete Time: 11:15 03/13 10:51 Order name: Labs collected and sent; Complete Time: 11:15 03/13 10:51 Order name: O2 Per Protocol; Complete Time: 10:52 03/13 10:51 Order name: O2 Sat Monitoring; Complete Time: 10:53 4 EC:17 Rate is 77 beats/min. Rhythm is regular. QRS [place] is Normal. [place] interval is normal. QRS tw4 interval is normal. QT interval is normal. No Q waves. No ST changes noted. Clinical impression: Normal ECG. Interpreted by me. Reviewed by me. Administered Medications: 10:59 Drug: Albuterol - atroVENT (3:1) (2.5 mg - 0.5 mg) 3 ml Route: Nebulizer; sg 11:40 Follow up: Response: No adverse reaction; No adverse reaction, Pt reports no ss significant change Disposition: 03/13/18 12:50 Hospitalization ordered by Cordell Herrera for Observation. Preliminary diagnosis is Chronic obstructive pulmonary disease with (acute) exacerbation. - Bed requested for Telemetry/MedSurg (observation). - Status is Observation. sg - Condition is Fair. - Problem is chronic. - Symptoms have worsened. UTI on Admission? No Signatures: Dispatcher [employer] EDMS Sherrie Bull Steven, RN RN sg Migdalia Quintero RN RN iw Luis Pagan MD MD tw4 Raisa Solorzano RN ss Corrections: (The following items were deleted from the chart) 13:36 12:50 Hospitalization Ordered by Cordell Herrera MD for Observation. Preliminary diagnosis bd is Chronic obstructive pulmonary disease with (acute) exacerbation. Bed requested for Telemetry/MedSurg (observation). Status is Observation. Condition is Fair. Problem is chronic. Symptoms have worsened. UTI on Admission? No. tw4 14:46 13:36 03/13/2018 12:50 Hospitalization Ordered by Cordell Herrera MD for Observation. sg Preliminary diagnosis is Chronic obstructive pulmonary disease with (acute) exacerbation. Bed requested for Telemetry/MedSurg (observation). Status is Observation. Condition is Fair. Problem is chronic. Symptoms have worsened. UTI on Admission? No. bd
[2018-03-13 15:24] VITALS: BMI 31.8
[2018-03-13] MEDS ORDERED: IPRATROPIUM BROM 0.5MG/2.5ML NEB SCH (16:00)
[2018-03-13] MEDS ORDERED: INSULIN -REGULAR HUMAN 50 UNIT/0.5 ML ML SQ SCH (16:30)
[2018-03-13] MEDS: HOME MED 1 EA UNK (Budesonide/Formoterol Fumarate [Symbicort 160-4.5 Mcg Inhaler] 2 PUFF) IH SCH (21:00)
[2018-03-13] MEDS ORDERED: FERROUS GLUCONATE 324 MG PO SCH (21:00)
--- NOTE | 2018-03-13 21:12 | EKG ---
Test Date: 2018-03-13 Test Time: 11:01:44 Field Support Rep: LAURA MEASUREMENT RESULTS: Intervals: Rate: 77 WA: 164 QRSD: 92 QT: 420 QTc: 475 [place]: P: WA: 164 QRS: 74 T: 68 INTERPRETIVE STATEMENTS: Normal sinus rhythm Normal ECG Compared to ECG 01/11/2018 22:31:01 Atrial premature complex(es) no longer present Electronically Signed On 03-13-18 21:11:59 CDT by Bertram Welch
[2018-03-13] MEDS: SOTALOL HCL 80 MG TAB PO SCH (21:29)
[2018-03-13] MEDS: DOCUSATE NA 100 MG CAP PO SCH (21:30)
[2018-03-13] MEDS: ATORVASTATIN 40 MG TAB PO SCH (21:30)
[2018-03-13] MEDS: APIXABAN 5 MG TABLET PO SCH (21:30)
[2018-03-13] MEDS: INSULIN -REGULAR HUMAN 50 UNIT/0.5 ML ML SQ SCH (21:32)
[2018-03-14] MEDS: IPRATROPIUM BROM 0.5MG/2.5ML NEB PRN ×4 (00:13→21:22)
[2018-03-14] MEDS: ALBUTEROL 2.5 MG/3 ML NEB SOL NEB PRN ×4 (00:13→21:22)
[2018-03-14] MEDS: PANTOPRAZOLE 40MG TABLET PO SCH (05:39)
[2018-03-14] MEDS: INSULIN -REGULAR HUMAN 50 UNIT/0.5 ML ML SQ SCH ×4 (08:58→22:05)
[2018-03-14] MEDS: ASPIRIN 81 MG CHEWABLE TABLET PO SCH (08:59)
[2018-03-14] MEDS: APIXABAN 5 MG TABLET PO SCH ×2 (08:59→22:02)
[2018-03-14] MEDS: MAGNESIUM OXIDE 400 MG TAB PO SCH (08:59)
[2018-03-14] MEDS ORDERED: BUDESONIDE, MICRONIZED 3 MG CAP PO SCH (09:00)
[2018-03-14] MEDS: POTASSIUM CL SA 10 MEQ TAB PO SCH (09:00)
[2018-03-14] MEDS ORDERED: ISOSORBIDE MONONITRATE PO SCH (09:00)
[2018-03-14] MEDS ORDERED: INSULIN DETEMIR 70 UNIT SQ SCH (09:00)
[2018-03-14] MEDS: SOTALOL HCL 80 MG TAB PO SCH ×2 (09:00→22:00)
[2018-03-14] MEDS: ISOSORBIDE MONO SR 60 MG TAB PO SCH (09:00)
[2018-03-14] MEDS: HOME MED 1 EA UNK (Budesonide/Formoterol Fumarate [Symbicort 160-4.5 Mcg Inhaler] 2 PUFF) IH SCH ×2 (09:00→21:00)
[2018-03-14] MEDS ORDERED: INSULIN DETEMIR 100 UNIT/1 ML INSULIN SQ SCH ×2 (09:00→21:00)
[2018-03-14] MEDS: FERROUS GLUCONATE 300 MG TAB PO SCH ×2 (09:01→22:01)
[2018-03-14] MEDS: METOPROLOL XL 50 MG TAB PO SCH (09:01)
[2018-03-14] MEDS: ISOSORBIDE MONO 10 MG TAB PO SCH (09:02)
[2018-03-14] MEDS: LOSARTAN POTASSIUM 50 MG TABLET PO SCH (09:02)
[2018-03-14] MEDS: INSULIN GLARGINE 100 UNITS/ML SQ SCH (09:03)
[2018-03-14] MEDS: DOCUSATE NA 100 MG CAP PO SCH ×2 (09:03→22:02)
[2018-03-14] MEDS: levoFLOXacin 500 MG TAB PO SCH (09:52)
[2018-03-14] MEDS ORDERED: INSULIN GLARGINE 100 UNITS/ML SQ SCH (21:00)
[2018-03-14] MEDS: ATORVASTATIN 40 MG TAB PO SCH (22:01)
[2018-03-14] MEDS: predniSONE 20 MG TAB PO SCH (22:02)
[2018-03-14 22:22] LABS: Urine Appearance CLEAR; Urine Bilirubin NEGATIVE (NEG); Urine Blood NEGATIVE (NEG); Urine Color YELLOW; Urine Glucose 1+ (NEG); Urine Protein TRACE (NEG); Urine Specific Gravity 1.015 (1.005-1.030); Urine Urobilinogen 0.2 mg/dL (0.2-1.0)
[2018-03-14 22:23] LABS: Urine Microscopic Reflex ORDER UMIC
[2018-03-14 22:48] LABS: Urine Bacteria <20 /HPF (NONE SEEN); Urine Culture Reflex Order NOT NEEDED; Urine RBC <5 /HPF (NONE SEEN)
--- NOTE | 2018-03-15 01:09 | HP ---
Date of Admission: 03/13/2018 Chief Complaint: Shortness of breath and wheezing. History Of Present Illness: A 73-year-old male who is known to have history of COPD and multiple oth er medical problems including diabetes, atrial fibrillation, was brought to the emergency room laquita farfan of wheezing, coughing, and dyspnea. The patient had evaluation done, and the patient is admitted w ith a diagnosis of COPD exacerbation. The patient denies any chest pain, fever, chills, or rigors. Past Medical History: Positive for COPD, chronic atrial fibrillation, hyperlipidemia, depression, co ngestive heart failure, hypertension. Past Surgical History: Positive for angioplasty, hernia repair, and colon resection. Family History: Noncontributory. Personal History: Currently nonsmoker. Allergies: NONE. Home Medicines: Please refer to the chart. Review of Systems: No chest pain. No fever. Physical Examination: General: Revealed a 73-year-old male with [id number] wheezing. HEENT: Congested throat. Neck: Supple, JVD negative. Chest: Bilateral wheezes. Heart: Irregularity noted. Abdomen: Soft, nontender. Extremities: Mild pedal edema. Laboratory Data: White count 12.7. Chem profile: BUN 39, creatinine 1.6. BNP 379, triglycerides 3 19, cholesterol 110. Assessment: 1.Chronic obstructive pulmonary disease exacerbation. 2.Chronic obstructive pulmonary disease. 3.Hypertension. 4.Hyperlipidemia. 5.Type 2 diabetes requiring insulin. 6.Depression and anxiety. 7.History of congestive heart failure. 8.History of coronary artery disease. Plan: The patient received around the clock breathing treatments and Levaquin. The patient will als o have oral steroids. ZAIRA/IVORY Voice ID: [id number]
[2018-03-15] MEDS: IPRATROPIUM BROM 0.5MG/2.5ML NEB PRN (04:07)
[2018-03-15] MEDS: ALBUTEROL 2.5 MG/3 ML NEB SOL NEB PRN (04:07)
[2018-03-15] MEDS: PANTOPRAZOLE 40MG TABLET PO SCH (05:43)
[2018-03-15 08:08] VITALS: O2SAT 94
[2018-03-15] MEDS: SOTALOL HCL 80 MG TAB PO SCH (08:40)
[2018-03-15] MEDS: ISOSORBIDE MONO SR 60 MG TAB PO SCH (08:40)
[2018-03-15] MEDS: POTASSIUM CL SA 10 MEQ TAB PO SCH (08:40)
[2018-03-15] MEDS: levoFLOXacin 500 MG TAB PO SCH (08:41)
[2018-03-15] MEDS: MAGNESIUM OXIDE 400 MG TAB PO SCH (08:41)
[2018-03-15] MEDS: APIXABAN 5 MG TABLET PO SCH (08:41)
[2018-03-15] MEDS: DOCUSATE NA 100 MG CAP PO SCH (08:41)
[2018-03-15] MEDS: METOPROLOL XL 50 MG TAB PO SCH (08:41)
[2018-03-15] MEDS: FERROUS GLUCONATE 300 MG TAB PO SCH (08:42)
[2018-03-15] MEDS: predniSONE 20 MG TAB PO SCH (08:42)
[2018-03-15] MEDS: HOME MED 1 EA UNK (Budesonide/Formoterol Fumarate [Symbicort 160-4.5 Mcg Inhaler] 2 PUFF) IH SCH (08:42)
[2018-03-15] MEDS: ASPIRIN 81 MG CHEWABLE TABLET PO SCH (08:42)
[2018-03-15] MEDS: ISOSORBIDE MONO 10 MG TAB PO SCH (08:42)
[2018-03-15] MEDS: INSULIN -REGULAR HUMAN 50 UNIT/0.5 ML ML SQ SCH ×2 (08:43→11:30)
[2018-03-15] MEDS: INSULIN GLARGINE 100 UNITS/ML SQ SCH (08:44)
[2018-03-15] MEDS: LOSARTAN POTASSIUM 50 MG TABLET PO SCH (08:47)
[2018-03-15 08:51] VITALS: BP 151/69
[2018-03-15 09:21] VITALS: TEMP 97
== END 2018-03-15 12:03 | disposition home or self-care (01) ==
LOC: ER 10:29 → ERHOLD 12:40 → 2ND 14:18
PROVIDERS: ADMIT Internal Medicine; ATTEND Internal Medicine
DX: J44.1 Chronic obstructive pulmonary disease with (acute) exacerbation (principal); E11.9 Type 2 diabetes mellitus without complications; I48.91 Unspecified atrial fibrillation; I11.0 Hypertensive heart disease with heart failure; I50.9 Heart failure, unspecified; I25.10 Atherosclerotic heart disease of native coronary artery without angina pectoris; Z98.61 Coronary angioplasty status; E78.5 Hyperlipidemia, unspecified; F41.8 Other specified anxiety disorders
CPT/HCPCS: 36415; 71045; 80048; 80061; 80076; 82550; 82553; 82962 ×7; 83735; 83880; 84484; 85025; 85610; 85730; 87070; 87205; 93005; 94640 ×2; 99284; G0378 ×2; 81003; 81015; J7512

== ENCOUNTER 2018-03-24 19:54 | Inpatient (IN) | payer OTHER ==
--- OUTSIDE RECORDS SUMMARY | 2018-03-24 19:56 | XMS REPORT | Clinical Summary ---
:1945 Author Organization [facility] Address [address] [place] [address] Care Team Providers Name Role Phone Asked, [...] Not on file Results Not on fileafter 03/23/2017 Insurance Payer Benefit Plan / Group Subscriber ID Type Phone Address [facility] xxxxxxxxx O Home: [address] [place], [place] [phone] [address]
[2018-03-24 21:44] LABS: Absolute Lymphocytes (CBC) 1.5 K/uL (0.7-4.9); Absolute Monocytes 1.2 K/uL (0.1-1.3); Basophils % 0.9 % (0-1.3); Eosinophils % 1.7 % (0-4.4); Hematocrit 33.5 % (39.6-49.0); Lymphocytes % 10.5 % (15.3-44.8); MPV 8.4 fL (7.6-11.3); Monocytes % 8.7 % (3.3-12.3); RBC Red Blood Cell Count 3.85 M/uL (4.33-5.43)
[2018-03-24 21:49] LABS: Protime INR 1.35
[2018-03-24] MEDS ORDERED: FENTANYL CITR 100 MCG/2 ML ONE (21:51)
[2018-03-24] MEDS ORDERED: ONDANSETRON 4 MG/2 ML VIAL ONE (21:51)
[2018-03-24 22:03] LABS: ALT/SGPT 22 U/L (12-78); AST/SGOT 12 U/L (15-37); Albumin 2.8 g/dL (3.4-5.0); Alkaline Phosphatase 141 U/L (45-117); BUN Blood Urea Nitrogen 65 mg/dL (7-18); Bicarbonate 33 mmol/L (21-32); Bilirubin Direct < 0.1 mg/dL (0-0.2); Bilirubin Total 0.3 mg/dL (0.2-1.0); Glucose Level 116 mg/dL (74-106); Potassium 4.1 mmol/L (3.5-5.1); Protein, Total 6.9 g/dL (6.4-8.2); Sodium Level 138 mmol/L (136-145)
--- NOTE | 2018-03-24 23:06 | ER ---
Nurse's Notes [facility] Name: Jethro Burden Age: 73 yrs Sex: Male : 1945 Arrival Date: 03/24/2018 Time: 20:08 Bed 20 Private MD: Cordell Herrera R Diagnosis: Cellulitis of right lower limb Presentation: 03/24 20:26 Presenting complaint: Patient states: RIGHT foot/leg pain started today, pt currently sr5 being treated in wound center for injury to toenail per pt report. Transition of care: patient was not received from another setting of care. Onset of symptoms was March 24, 2018. Risk Assessment: Do you want to hurt yourself or someone else? Patient reports no desire to harm self or others. Initial Sepsis Screen: Does the patient meet any 2 criteria? No. Patient's initial sepsis screen is negative. Does the patient have a suspected source of infection? No. Patient's initial sepsis screen is negative. Care prior to arrival: wound care pt. 20:26 Method Of Arrival: Wheelchair sr5 20:26 Acuity: TAN 3 sr5 Triage Assessment: 20:28 General: Appears in no apparent distress. Behavior is calm, cooperative. Pain: sr5 Complains of pain in lateral aspect of right calf, right ankle and lateral aspect of right foot Pain currently is 8 out of 10 on a pain scale. Neuro: No deficits noted. Historical: - Allergies: 20:28 NKDA; sr5 - Home Meds: 03/25 01:23 Albuterol Inhl [Active]; albuterol sulfate 2.5 mg /3 mL (0.083 %) Inhl nebu 3 mL Q4H bp prn [Active]; apixaban 5 mg Oral 1 tab 2 times per day [Active]; aspirin 81 mg Oral TbEC 1 tab once daily [Active]; atorvastatin 80 mg Oral tab 0.5 tab once daily [Active]; budesonide 3 mg Oral CECX 3 caps once daily [Active]; budesonide-formoterol inhalation 2 puffs 2 times per day [Active]; cyanocobalamin (vitamin B-12) 100 mcg Oral tab daily [Active]; docusate sodium 100 mg Oral cap 1 cap 2 times per day [Active]; ferrous gluconate 324 mg (36 mg iron) Oral tab twice a day [Active]; finasteride 5 mg Oral tab 1 tab once daily [Active]; furosemide 40 mg Oral tab 3 tabs in am and 2 tabs in pm [Active]; gabapentin 100 mg Oral cap 1 caps 3 times per day [Active]; insulin aspart subcutaneous 35 unit before meals [Active]; insulin detemir subcutaneous 70 units in am and 45 units in pm [Active]; ipratropium bromide 0.02 % inhalation soln 2.5 mL every 6 hours [Active]; isosorbide mononitrate 20 mg Oral tab 4 tab daily [Active]; losartan 100 mg Oral tab 1 tab once daily [Active]; magnesium oxide 420 mg Oral tab daily [Active]; metoprolol tartrate 50 mg Oral tab 1 tab once daily [Active]; pantoprazole 40 mg Oral TbEC 1 tab once daily [Active]; potassium chloride 10 mEq Oral cpER 2 caps once daily [Active]; sertraline 100 mg Oral tab 1 tab once daily [Active]; sotalol 120 mg Oral tab 1 tab 2 times per day [Active]; - PMHx: 03/24 20:28 Atrial Fib; CHF; COPD; Crohn's; Depression; Diabetes - IDDM; Hyperlipidemia; sr5 Hypertension; prostate problems; - PSHx: 20:28 Heart stents; colon resection; Hernia repair; sr5 - Immunization history:: Adult Immunizations up to date. - Social history:: Smoking status: Patient/guardian denies using tobacco, never smoked. - Ebola Screening: : Patient negative for fever greater than or equal to 101.5 degrees Fahrenheit, and additional compatible Ebola Virus Disease symptoms. Screenin:45 Abuse screen: Denies threats or abuse. Denies injuries from another. Nutritional bp screening: No deficits noted. Tuberculosis screening: No symptoms or risk factors identified. Fall Risk None identified. Assessment: 20:30 General: Appears in no apparent distress. comfortable, obese, Behavior is calm, bp cooperative, appropriate for age. Pain: Denies pain. Neuro: Level of Consciousness is awake, alert, obeys commands, Oriented to person, place, time, situation, Appropriate for age. Cardiovascular: No deficits noted. Respiratory: Airway is patent Respiratory effort is even, unlabored, Respiratory pattern is regular, symmetrical. GI: No signs and/or symptoms were reported involving the gastrointestinal system. : No signs and/or symptoms were reported regarding the genitourinary system. EENT: No signs and/or symptoms were reported regarding the EENT system. Derm: Wound noted right foot Other: MX NON-HEALING LESIONS TO R TOES. Musculoskeletal: Circulation, motion, and sensation intact. Range of motion: intact in all extremities. 22:00 Reassessment: ALL CURRENT STUDIES COMPLETED, RESULTS PENDING. bp 23:21 Reassessment: ADMIT MD AT B/S, ADMIT IN PROCESS. bp Vital Signs: 20:25 BP 104 / 44; Pulse 75; Resp 18; Temp 97.9(O); Pulse Ox 93% on R/A; Weight 104.33 kg sr5 (R); Height 6 ft. 0 in. (182.88 cm); Pain 9/10; 22:00 BP 119 / 53; Pulse 70; Resp 11; Pulse Ox 98% ; bp 23:21 BP 118 / 45; Pulse 75; Resp 11; Pulse Ox 98% ; bp 03/25 01:24 BP 160 / 64; Pulse 72; Resp 10; Pulse Ox 99% ; bp 01:52 BP 121 / 56; Pulse 73; Resp 10; Pulse Ox 99% ; bp 03/24 20:25 Body Mass Index 31.19 (104.33 kg, 182.88 cm) sr5 ED Course: 03/24 20:08 Patient arrived in ED. es 20:09 Cordell Herrera MD is Private Physician. es 20:27 Triage completed. sr5 20:28 Arm band placed on right wrist. sr5 20:33 Andrea Varner, RYLEE is Primary Nurse. bp 20:35 Serge Girard PA is PHCP. cp 20:35 Adam Gayle MD is Attending Physician. cp 20:45 Patient has correct armband on for positive identification. Bed in low position. Call bp light in reach. Side rails up X2. Adult w/ patient. 21:25 Inserted saline lock: 20 gauge in right wrist, using aseptic technique. Blood collected.bp 21:51 XRAY Foot RIGHT 3 View In Process Unspecified. EDMS 21:51 Chest Single View XRAY In Process Unspecified. EDMS 23:04 Shweta Sheppard MD is Hospitalizing Provider. cp 03/25 01:18 No provider procedures requiring assistance completed. Patient admitted, IV remains in bp place. Administered Medications: 03/24 21:48 Drug: fentaNYL (PF) 25 mcg Route: IVP; Site: right wrist; bp 23:11 Follow up: Response: Pain is decreased bp 21:49 Drug: Zofran 4 mg Route: IVP; Site: right wrist; bp 23:12 Follow up: Response: No adverse reaction bp 23:15 Drug: LevaQUIN 500 mg Volume: 100 ml; Route: IVPB; Infused Over: 60 mins; Site: right bp wrist; 03/25 00:19 Follow up: IV Status: Completed infusion bp 00:20 Drug: vancoMYCIN 1 grams Route: IVPB; Infused Over: 2 hrs; Site: right forearm; bp 01:26 Follow up: IV Status: Infusion continued upon admission bp Outcome: 03/24 23:05 Decision to Hospitalize by Provider. gianluca 03/25 01:25 Condition: stable bp Instructed on the need for admit. 01:35 Admitted to Med/surg accompanied by tech, family with patient, via stretcher, room 430, bp on monitor. 01:53 Patient left the ED. bp Signatures: Dispatcher [employer] Marcia Cheema Corey, PA PA cp Gómez Lara, RN RN sr5 Andrea Varner RN RN bp Corrections: (The following items were deleted from the chart) 03/24 22:16 20:00 BP 119 / 53; Pulse 70bpm; Resp 11bpm; Pulse Ox 98%; bp bp
--- NOTE | 2018-03-24 23:06 | EDPHYS ---
Physician Documentation [facility] Name: Jethro Burden Age: 73 yrs Sex: Male : 1945 Arrival Date: 03/24/2018 Time: 20:08 Bed 20 Private MD: Cordell Herrera R ED Physician Adam Gayle HPI: 03/24 21:08 This 73 yrs old Male presents to ER via Wheelchair with complaints of Foot cp infected. 21:08 The patient presents with swelling, tenderness, cellulitis. cp 21:08 The complaints affect the right foot. Onset: The symptoms/episode began/occurred cp gradually, and became worse. Associated signs and symptoms: Pertinent positives: warmth, Pertinent negatives: calf tenderness, fever. wound care clinic 2 days ago. Historical: - Allergies: 20:28 NKDA; sr5 - Home Meds: 03/25 01:23 Albuterol Inhl [Active]; albuterol sulfate 2.5 mg /3 mL (0.083 %) Inhl nebu 3 mL Q4H bp prn [Active]; apixaban 5 mg Oral 1 tab 2 times per day [Active]; aspirin 81 mg Oral TbEC 1 tab once daily [Active]; atorvastatin 80 mg Oral tab 0.5 tab once daily [Active]; budesonide 3 mg Oral CECX 3 caps once daily [Active]; budesonide-formoterol inhalation 2 puffs 2 times per day [Active]; cyanocobalamin (vitamin B-12) 100 mcg Oral tab daily [Active]; docusate sodium 100 mg Oral cap 1 cap 2 times per day [Active]; ferrous gluconate 324 mg (36 mg iron) Oral tab twice a day [Active]; finasteride 5 mg Oral tab 1 tab once daily [Active]; furosemide 40 mg Oral tab 3 tabs in am and 2 tabs in pm [Active]; gabapentin 100 mg Oral cap 1 caps 3 times per day [Active]; insulin aspart subcutaneous 35 unit before meals [Active]; insulin detemir subcutaneous 70 units in am and 45 units in pm [Active]; ipratropium bromide 0.02 % inhalation soln 2.5 mL every 6 hours [Active]; isosorbide mononitrate 20 mg Oral tab 4 tab daily [Active]; losartan 100 mg Oral tab 1 tab once daily [Active]; magnesium oxide 420 mg Oral tab daily [Active]; metoprolol tartrate 50 mg Oral tab 1 tab once daily [Active]; pantoprazole 40 mg Oral TbEC 1 tab once daily [Active]; potassium chloride 10 mEq Oral cpER 2 caps once daily [Active]; sertraline 100 mg Oral tab 1 tab once daily [Active]; sotalol 120 mg Oral tab 1 tab 2 times per day [Active]; - PMHx: 03/24 20:28 Atrial Fib; CHF; COPD; Crohn's; Depression; Diabetes - IDDM; Hyperlipidemia; sr5 Hypertension; prostate problems; - PSHx: 20:28 Heart stents; colon resection; Hernia repair; sr5 - Immunization history:: Adult Immunizations up to date. - Social history:: Smoking status: Patient/guardian denies using tobacco, never smoked. - Ebola Screening: : Patient negative for fever greater than or equal to 101.5 degrees Fahrenheit, and additional compatible Ebola Virus Disease symptoms. ROS: 21:15 Constitutional: Negative for body aches, chills, fever, poor PO intake. cp 21:15 Eyes: Negative for injury, pain, redness, and discharge. cp 21:15 ENT: Negative for drainage from ear(s), ear pain, sore throat, difficulty swallowing, difficulty handling secretions. 21:15 Cardiovascular: Negative for chest pain, palpitations. 21:15 Respiratory: Negative for cough, shortness of breath, wheezing. 21:15 Abdomen/GI: Negative for abdominal pain, nausea, vomiting, and diarrhea. 21:15 MS/extremity: Positive for erythema, pain, swelling, of the right foot. 21:15 Neuro: Negative for altered mental status, headache, weakness. 21:15 All other systems are negative. Exam: 21:20 Constitutional: The patient appears in no acute distress, alert, awake, cp non-diaphoretic, non-toxic, well developed, well nourished. 21:20 Head/Face: Normocephalic, atraumatic. cp 21:20 Eyes: Periorbital structures: appear normal, Pupils: equal, round, and reactive to light and accomodation, Extraocular movements: intact throughout, Conjunctiva: normal, no exudate, no injection, Sclera: no appreciated abnormality, Lids and lashes: appear normal, bilaterally. 21:20 ENT: External ear(s): are unremarkable, Nose: is normal, Mouth: Lips: moist, Oral mucosa: pink and intact, moist, Posterior pharynx: is normal, airway is patent, no erythema, no exudate. 21:20 Neck: ROM/movement: is normal, is supple, without pain, no range of motions limitations, no nuchal rigidity. 21:20 Chest/axilla: Inspection: normal, Palpation: is normal, no crepitus, no tenderness. 21:20 Cardiovascular: Rate: normal, Rhythm: regular, Pulses: weak, bilateral dorsalis pedis, Edema: is not appreciated, JVD: is not appreciated. 21:20 Respiratory: the patient does not display signs of respiratory distress, Respirations: normal, no use of accessory muscles, no retractions, no splinting, no tachypnea, labored breathing, is not present, Breath sounds: are clear throughout, no decreased breath sounds, no stridor, no wheezing. 21:20 Abdomen/GI: Inspection: abdomen appears normal, Palpation: abdomen is soft and non-tender, in all quadrants. 21:20 Skin: cellulitis, that is moderate, patchy, on the right foot, noted multiple pressure type ulcers in web spaces of toes with large open wound medial aspect right great toe. Vital Signs: 20:25 BP 104 / 44; Pulse 75; Resp 18; Temp 97.9(O); Pulse Ox 93% on R/A; Weight 104.33 kg sr5 (R); Height 6 ft. 0 in. (182.88 cm); Pain 9/10; 22:00 BP 119 / 53; Pulse 70; Resp 11; Pulse Ox 98% ; bp 23:21 BP 118 / 45; Pulse 75; Resp 11; Pulse Ox 98% ; bp 03/25 01:24 BP 160 / 64; Pulse 72; Resp 10; Pulse Ox 99% ; bp 01:52 BP 121 / 56; Pulse 73; Resp 10; Pulse Ox 99% ; bp 03/24 20:25 Body Mass Index 31.19 (104.33 kg, 182.88 cm) sr5 MDM: 03/24 20:35 Patient medically screened. cp 22:00 Differential diagnosis: cellulitis, abscess, osteomyelitis, sepsis. cp 23:01 Data reviewed: vital signs, nurses notes, lab test result(s), EKG, radiologic studies, cp plain films. Physician consultation: Shweta Sheppard MD was called at 23:01, was contacted at 23:01, regarding admission, to the medical/surgical unit. patient's condition. 03/24 21:03 Order name: Basic Metabolic Panel; Complete Time: 22:17 cp 03/24 22:18 Interpretation: Normal except: CO2 33; GLUC 116; BUN 65; CRE 1.80; GFR 37; CA 8.3. cp 03/24 21:03 Order name: Blood Culture Adult (2) cp 03/24 21:03 Order name: C-Reactive Protein; Complete Time: 22:17 cp 03/24 21:03 Order name: CBC with Diff; Complete Time: 22:33 cp 03/24 22:18 Interpretation: Normal except: WBC 14.1; RBC 3.85; HGB 11.2; HCT 33.5; RDW 15.9; ROBSON% cp 78.2; LYM% 10.5; NEUT A 11.0. 03/24 21:03 Order name: Lactate; Complete Time: 22:17 cp 03/24 21:03 Order name: LFT's; Complete Time: 22:17 cp 03/24 21:03 Order name: XRAY Foot RIGHT 3 View; Complete Time: 23:32 cp 03/24 21:03 Order name: Procalcitonin; Complete Time: 22:33 cp 03/24 21:03 Order name: Protime (+inr); Complete Time: 22:17 cp 03/24 21:03 Order name: Ptt, Activated; Complete Time: 22:17 cp 03/24 21:03 Order name: Sed Rate; Complete Time: 22:33 cp 03/24 22:34 Interpretation: Abnormal: SED 65. cp 03/24 21:03 Order name: Troponin (emerg Dept Use Only); Complete Time: 22:17 cp 03/24 21:03 Order name: Chest Single View XRAY; Complete Time: 23:32 cp 03/24 22:19 Order name: Wound Culture 03/24 21:03 Order name: Cardiac monitoring; Complete Time: 21:34 cp 03/24 21:03 Order name: EKG - Nurse/Tech; Complete Time: 21:55 cp 03/24 21:03 Order name: IV Saline Lock - Large Bore; Complete Time: 21:34 cp 03/24 21:03 Order name: Labs collected and sent; Complete Time: 21:34 cp 03/24 21:03 Order name: O2 Per Protocol; Complete Time: 21:34 cp 03/24 21:03 Order name: O2 Sat Monitoring; Complete Time: 21:34 cp 03/24 23:34 Order name: CONS Physician Consult EDMS Administered Medications: 21:48 Drug: fentaNYL (PF) 25 mcg Route: IVP; Site: right wrist; bp 23:11 Follow up: Response: Pain is decreased bp 21:49 Drug: Zofran 4 mg Route: IVP; Site: right wrist; bp 23:12 Follow up: Response: No adverse reaction bp 23:15 Drug: LevaQUIN 500 mg Volume: 100 ml; Route: IVPB; Infused Over: 60 mins; Site: right bp wrist; 03/25 00:19 Follow up: IV Status: Completed infusion bp 00:20 Drug: vancoMYCIN 1 grams Route: IVPB; Infused Over: 2 hrs; Site: right forearm; bp 01:26 Follow up: IV Status: Infusion continued upon admission bp Disposition: 02:00 Co-signature as Attending Physician, Adam Gayle MD. rn Disposition: 03/24/18 23:05 Hospitalization ordered by Shweta Sheppard for Inpatient Admission. Preliminary diagnosis is Cellulitis of right lower limb. - Bed requested for Telemetry/MedSurg (Inpatient). - Status is Inpatient Admission. bp - Condition is Stable. - Problem is new. - Symptoms have improved. UTI on Admission? No Signatures: Dispatcher [facility] Noa Infante RN RN Adam Gayle MD MD rn Page, Corey, PA PA Gómez Lara RN RN sr5 Andrea Varner RN RN bp Corrections: (The following items were deleted from the chart) 03/24 22:18 22:18 Normal except: CO2 33; GLUC 116; BUN 65; CRE 1.80; GFR 37. cp cp 03/25 00:50 03/24 23:05 Hospitalization Ordered by Shweta Sheppard MD for Inpatient Admission. kl Preliminary diagnosis is Cellulitis of right lower limb. Bed requested for Telemetry/MedSurg (Inpatient). Status is Inpatient Admission. Condition is Stable. Problem is new. Symptoms have improved. UTI on Admission? No. cp 03/25 01:53 00:50 03/24/2018 23:05 Hospitalization Ordered by Shweta Sheppard MD for Inpatient bp Admission. Preliminary diagnosis is Cellulitis of right lower limb. Bed requested for Telemetry/MedSurg (Inpatient). Status is Inpatient Admission. Condition is Stable. Problem is new. Symptoms have improved. UTI on Admission? No. kl
[2018-03-24] MEDS ORDERED: Levofloxacin500mg IV 500 MG/100 ML BAG IV ONE (23:20)
[2018-03-24] MEDS ORDERED: VANCOMYCIN 1 GM/250 ML BAG ONE (23:20)
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
[2018-03-25] MEDS ORDERED: ACETAMINOPHEN 500 MG TAB PO PRN (02:19)
[2018-03-25] MEDS ORDERED: GLUCAGON 1 MG/VIAL IM PRN ×2 (02:19→10:45)
[2018-03-25] MEDS ORDERED: ONDANSETRON 4 MG/2 ML VIAL IV PRN (02:19)
[2018-03-25] MEDS ORDERED: D50W 25 GM/50 ML SYRINGE IV PRN ×2 (02:19→10:45)
[2018-03-25] MEDS ORDERED: ALBUTEROL 2.5 MG/3 ML NEB SOL NEB PRN (02:19)
[2018-03-25] MEDS ORDERED: PIPER/TAZO/NS 3.375gm 3.375 GM/100 ML BAG IVPB SCH ×3 (02:19→03:15)
[2018-03-25] MEDS ORDERED: NA CHLORIDE 0.9% 1,000 ML IV SCH (02:19)
[2018-03-25] MEDS: INSULIN -REGULAR HUMAN 50 UNIT/0.5 ML ML SQ SCH ×5 (02:19→21:44)
[2018-03-25] MEDS ORDERED: VANCOMYCIN/NS 1 gm 1 GM/250 ML BAG IVPB ONE (03:00)
[2018-03-25] MEDS: IPRATROPIUM BROM 0.5MG/2.5ML NEB PRN (03:09)
[2018-03-25] MEDS ORDERED: VANCOMYCIN 1 GM/VIAL ONE (03:14)
[2018-03-25] MEDS ORDERED: NA CHLORIDE 0.9% 250 ML ONE (03:15)
[2018-03-25] MEDS ORDERED: PIPER/TAZO/NS 3.375gm 3.375 GM/100 ML BAG ONE (03:45)
[2018-03-25 03:51] LABS: Urine Appearance CLEAR; Urine Bilirubin NEGATIVE (NEG); Urine Blood NEGATIVE (NEG); Urine Color YELLOW; Urine Glucose NEGATIVE (NEG); Urine Protein NEGATIVE (NEG); Urine Urobilinogen 0.2 mg/dL (0.2-1.0)
[2018-03-25 03:58] LABS: Urine Microscopic Reflex NO UMIC
[2018-03-25 05:19] LABS: Absolute Lymphocytes (CBC) 1.4 K/uL (0.7-4.9); Absolute Neutrophil 10.2 K/uL (1.8-8.0); Basophils % 0.2 % (0-1.3); Eosinophils % 2.1 % (0-4.4); Hematocrit 32.3 % (39.6-49.0); MCH 29.8 pg (27.0-35.0); MCV 87.9 fL (80-100); MPV 8.5 fL (7.6-11.3); Monocytes % 7.6 % (3.3-12.3); RBC Red Blood Cell Count 3.68 M/uL (4.33-5.43)
[2018-03-25 05:42] LABS: Magnesium 2.2 mg/dL (1.8-2.4); Potassium 4.4 mmol/L (3.5-5.1)
[2018-03-25] MEDS ORDERED: VANCOMYCIN 1 GM in NA CHLORIDE 0.9% 500 ML IVPB SCH (09:00)
--- NOTE | 2018-03-25 09:33 | P.PN ---
Subjective Date of Service: 03/25/18 Primary Care Provider: Dr. Weston(I am covering him today) Chief Complaint: Necrotizing diabetic wound/osteomyelitis Subjective: Doing well Physical Examination - Vital Signs Temperature: 98.3 F Blood Pressure: 138/74 Pulse: 89 Respirations: 18 Pulse Ox (%): 97 - Physical Exam General: Alert, In no apparent distress, Oriented x3, Cooperative HEENT: Atraumatic Neck: Supple Respiratory: Clear to auscultation bilaterally, Normal air movement Cardiovascular: Normal pulses, Regular rate/rhythm Gastrointestinal: Normal bowel sounds, Soft and benign, Non-distended, No tenderness, No masses, No rebound, No guarding Musculoskeletal: No contractures Integumentary: Other (Erythema to the Right great toe. Ulcer noted. He has no pain due to neuropathy) Neurological: Normal speech, Normal strength at 5/5 x4 extr, Normal tone, Normal affect - Studies Laboratory Data (last 24 hrs) 03/24/18 21:25: PT 16.0 H, INR 1.35, APTT 30.4 03/24/18 21:25: WBC 14.1 H, Hgb 11.2 L, Hct 33.5 L, Plt Count 319 03/24/18 21:25: Sodium 138, Potassium 4.1, BUN 65 H D, Creatinine 1.80 H, Glucose 116 H, Total Bilirubin 0.3, AST 12 L, ALT 22, Alkaline Phosphatase 141 H Medications List Reviewed: Yes Assessment & Plan - Problems (Diagnosis) (1) Chronic anticoagulation Current Visit: Yes Status: Chronic Plan: Patient has Atrial fibrillation. Will continue with medication including anticoagulation. Dr. Gonzalez to further address (2) Ulcer of foot due to diabetes mellitus Current Visit: Yes Status: Acute Plan: Suspect osteomyelitis. Will continue with IV antibiotic therapy. Surgery to evaluate. Will consult infectious disease. Will also obtain MRI to rule out osteomyelitis. Qualifiers: Diabetic foot ulcer location: toe Diabetes mellitus type: type 2 Laterality: right (3) DM neuropathy, type II diabetes mellitus Current Visit: Yes Status: Chronic Plan: Will provide medication for pain. Will review home medication. 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 Will need to consider nephrology consultation. Attending physician will address tomorrow. Qualifiers: Chronic kidney disease stage: stage 3 (moderate) Qualified Code(s): N18.3 - Chronic kidney disease, stage 3 (moderate) (5) Osteomyelitis Current Visit: Yes Status: Suspected Plan: Suspect gallstone myelitis of the right great toe. Continue with IV antibiotic therapy. Will check MRI to rule out osteomyelitis. Surgery and infectious disease consulted. Qualifiers: Osteomyelitis type: unspecified type Osteomyelitis location: foot Laterality: right Qualified Code(s): M86.9 - Osteomyelitis, unspecified (6) Anemia Current Visit: No Status: Chronic Plan: Patient has chronic anemia likely of chronic disease. Will monitor closely. Qualifiers: Anemia type: due to chronic kidney disease Chronic kidney disease stage: stage 3 (moderate) Qualified Code(s): N18.3 - Chronic kidney disease, stage 3 (moderate); D63.1 - Anemia in chronic kidney disease (7) Anxiety Current Visit: No Status: Chronic Plan: Will review and restart home medication. (8) CHF (congestive heart failure) Onset Date: 02/12/18 Current Visit: No Status: Chronic Plan: Patient with chronic diastolic CHF. Will monitor closely. Will discontinue IV fluids. Qualifiers: Heart failure type: diastolic Heart failure chronicity: chronic Qualified Code(s): I50.32 - Chronic diastolic (congestive) heart failure (9) Diabetes mellitus, type II, insulin dependent Onset Date: 05/13/15 Current Visit: No Status: Chronic Plan: Patient with diabetes. Will provide sliding scale. Will need to consider restarting basal insulin. (10) Atrial fibrillation Onset Date: 02/12/18 Current Visit: No Status: Chronic Plan: Patient with history of atrial fibrillation. Will restart his home medication including Betapace. Patient also on chronic anti coalition therapy. This will be restarted. Will need to verify home medication. Qualifiers: Atrial fibrillation type: paroxysmal Qualified Code(s): I48.0 - Paroxysmal atrial fibrillation (11) COPD (chronic obstructive pulmonary disease) Onset Date: 08/07/17 Current Visit: No Status: Chronic Plan: Will provide medication for COPD. Will maintain sats above 90%. Qualifiers: COPD type: unspecified COPD Qualified Code(s): J44.9 - Chronic obstructive pulmonary disease, unspecified (12) PVD (peripheral vascular disease) Current Visit: Yes Status: Suspected Plan: Suspect PVD. This may need to be further evaluated. (13) Hyperlipidemia Onset Date: 02/12/18 Current Visit: No Status: Chronic Plan: Will continue with home medication. Discharge Plan: Other (Long-term acute care facility placement verses skilled placement) Plan to discharge in: Greater than 2 days Time Spent Managing Pts Care (In Minutes): 55
[2018-03-25] MEDS ORDERED: METOPROLOL XL 25 MG TAB PO SCH (10:00)
[2018-03-25] MEDS ORDERED: LOSARTAN POTASSIUM 50 MG TABLET PO SCH (10:00)
[2018-03-25] MEDS: APIXABAN 5 MG TABLET PO SCH ×2 (10:12→21:43)
[2018-03-25] MEDS: PIPER/TAZO/NS 3.375gm 3.375 GM/100 ML BAG IVPB SCH ×2 (10:12→16:51)
[2018-03-25] MEDS: FERROUS GLUCONATE 300 MG TAB PO SCH (10:13)
[2018-03-25] MEDS: MAGNESIUM OXIDE 400 MG TAB PO SCH (10:13)
[2018-03-25] MEDS: LOSARTAN POTASSIUM 50 MG TABLET PO SCH (10:13)
[2018-03-25] MEDS: PANTOPRAZOLE 40MG TABLET PO SCH (10:13)
[2018-03-25] MEDS: SOTALOL HCL 80 MG TAB PO SCH ×2 (10:13→21:43)
[2018-03-25] MEDS: FINASTERIDE 5 MG TAB PO SCH (10:14)
[2018-03-25] MEDS: SERTRALINE HCL 100 MG TAB PO SCH (10:14)
--- NOTE | 2018-03-25 11:49 | RAD REPORT ---
EXAM DESCRIPTION: RAD - Chest Single View - 03/24/2018 9:51 pm CLINICAL HISTORY: right leg swelling Chest pain. COMPARISON: Chest Single View dated 03/13/2018; Chest Single View dated 02/13/2018; Chest Single View dated 01/11/2018; Chest Single View dated 12/17/2017 FINDINGS: Portable technique limits examination quality. Vague rounded opacities in both lower lobes, larger on the left, appear new since the most recent com parative study. The heart is normal in size. No displaced fractures. IMPRESSION: Rounded opacities both lower lobes are noted, a new finding since most refer to recent c omparative exam. Recommend CT chest followup assessment.
--- NOTE | 2018-03-25 11:51 | RAD REPORT ---
EXAM DESCRIPTION: RAD - Foot Right 3 View - 03/24/2018 9:51 pm CLINICAL HISTORY: PAIN Diabetic foot ulcer COMPARISON: Foot Right 3 View dated 02/09/2018 FINDINGS: A large soft tissue ulceration is seen at the level of the interphalangeal joint of the gr eat toe medially. Bony destructive changes are present involving the proximal and distal phalanges of the great toe compatible with osteomyelitis. Heavy vascular calcifications noted.
--- NOTE | 2018-03-25 16:15 | EKG ---
Test Date: 2018-03-24 Test Time: 21:46:54 Acid Supervisor: NIKOLAS MEASUREMENT RESULTS: Intervals: Rate: 73 ND: 156 QRSD: 90 QT: 432 QTc: 475 [place]: P: ND: 156 QRS: 36 T: 54 INTERPRETIVE STATEMENTS: Normal sinus rhythm Normal ECG Compared to ECG 03/13/2018 11:01:44 No significant changes Electronically Signed On 03-25-18 16:14:40 CDT by Bertram Welch
[2018-03-25] MEDS: MORPHINE 2 MG/ML SYR IV PRN ×2 (16:42→21:41)
[2018-03-25] MEDS: ARFORMOTEROL TARTRATE 15 MCG/2 ML VIAL.NEB NEB SCH (19:58)
[2018-03-25] MEDS ORDERED: FERROUS GLUCONATE 324 MG PO SCH (21:00)
[2018-03-25] MEDS ORDERED: VANCOMYCIN/NS 1 gm 1 GM/250 ML BAG IV ONE (21:00)
[2018-03-25] MEDS ORDERED: SOTALOL HCL 80 MG TAB PO SCH (21:00)
[2018-03-25] MEDS ORDERED: SOTALOL HCL 120 MG PO SCH (21:00)
[2018-03-25] MEDS: ATORVASTATIN 80 MG TAB PO SCH (21:42)
--- NOTE | 2018-03-25 21:46 | CON ---
Reason For Service: Cellulitis and osteomyelitis of the right foot. History Of Present Illness: This is a case of a 73-year-old patient, known by us in the past since t he patient [facility] to multiple wounds in his right foot, diabetic ul cers with toes of diabetic ulcers showing an exposed bone. The patient was informed in the past the need to take care of this problem including osteomyelitis, possible amputation, but he has been reluc tant to do so. He has been doing some dressing changes, noted that the redness is worse yesterday, a nd he just decided to come to the ER and a surgical consult was obtained. Allergies: NONE. Past Medical History: Include insulin-dependent diabetes, COPD, hypertension, AFib, kidney stones, G I bleed, hyperlipidemia, and asthma. Past Surgical History: Surgeries include appendectomy, hernia repair, heart cath. Family History: Heart disease, hypertension, diabetes, breast cancer. Social History: Patient does not smoke, although he used to smoke. He does not drink alcohol. Review of Systems: Ten point otherwise unremarkable. Physical Examination: General: Patient awake, alert. HEENT: Pupils anicteric. Abdomen: Soft and depressible. Nontender. Nondistended. Extremities and Integumentary: Patient has ulcer in the 1st, 3rd, and 4th toes. The 3rd toe has med ial and lateral exposed bone on the proximal interphalangeal joint with disarticulation of that alrea dy with erosion of the bone itself. Dorsalis pedis pulses bilateral diminished. Patient was advised in the past for the vascular workup, he said he had it done at one point, we have not been able to s ee that. Diagnostic Data: X-ray done 03/24 shows ulceration and osteomyelitis. Assessment: This is a 73-year-old patient with osteomyelitis of the right toe, multiple digits, and cellulitis with diabetic ulcers. The 3rd toe has medial and lateral exposure. It has been cleaned b efore at [facility] setting. He has been on antibiotics treatment in the past and he w as explained in the past also that the 3rd toe may need to be removed or he may give it a try to an L TAC and IV antibiotics and the wound care and see if he can save it; may even need hyperbaric chamber . Not doing anything about it, it will not improve his condition, and I have explained to him not ju st today but in the past. Circulation improving and it also has good part of this from diabetes cont rol and also nutrition. It was explained once again the option he has. We are going to see infectio n Disease consult suggests. If they believe they have a chance to heal, then maybe to be taken to an LTAC for that. HM/MODL Voice ID: [id number] Report ID: [id number]
--- NOTE | 2018-03-25 23:52 | CON ---
History Of Present Illness: The patient is a 73-year-old male with significant history of hypertensi on; COPD; diabetes mellitus, insulin dependent; chronic atrial fibrillation, on anticoagulation, comi ng in with large necrotic ulcer to the left big toe and fourth toe. The patient has poor circulation also with diabetic neuropathy. Currently being treated with IV antibiotics including Zosyn and vanc omycin. Denies any headache, nausea, vomiting, chest pain, abdominal pain, constipation, or diarrhea . Past Medical History: As per HPI. Social History: Tobacco positive. Alcohol negative. Family History: Noncontributory. Medications: Vancomycin, Zosyn. See [facility] for other medications. Allergies: NO KNOWN DRUG ALLERGIES. Review of Systems: A 10-point review was performed. Physical Examination: General: This is a 73-year-old male with multiple medical problems, lying in bed, not in any acute d istress at this time. Vital Signs: Temperature 97, pulse 78, respirations 18, blood pressure 137/68. HEENT: Poor dental hygiene. Neck: Supple. Lungs: Basal crackles. Heart: S1, S2. Regular. Abdomen: Soft, nontender. Bowel sounds positive. Extremities: Trace edema, right foot, with a large ulcer noted at the big toe with eschar tissue. F ourth toe with eschar tissue also noted with ulceration. Pulses are decreased on both lower extremit ies. Laboratory Data: Shows WBC 12,800, hemoglobin 11, platelets are 259. Chemistry shows sodium 138, po tassium 4.4, chloride 101, bicarb 31, BUN 53, creatinine 1.7, glucose is 138. Assessment And Plan: Right foot diabetic foot ulcer with most likely osteomyelitis and gangrenous ch anges to the big toe and fourth toe with poor circulation at this time. We will recommend Vascular S urgery evaluation to minimize amputation area. Apply Iodosorb to the large toe and fourth toe necrot ic area and eschar tissue. Continue IV antibiotic total course of 6 weeks. Consider long-term acute care. We will follow the patient as needed. Case discussed with the and the patient. NF/MODL Voice ID: [id number] Report ID: [id number]
[2018-03-26] MEDS: PIPER/TAZO/NS 3.375gm 3.375 GM/100 ML BAG IVPB SCH ×3 (01:31→17:06)
[2018-03-26] MEDS: MORPHINE 2 MG/ML SYR IV PRN ×5 (01:40→22:20)
[2018-03-26] MEDS ORDERED: VANCOMYCIN 2 GM in NA CHLORIDE 0.9% 500 ML IVPB SCH (03:00)
[2018-03-26 04:19] LABS: Absolute Lymphocytes (CBC) 1.1 K/uL (0.7-4.9); Absolute Monocytes 0.7 K/uL (0.1-1.3); Absolute Neutrophil 8.2 K/uL (1.8-8.0); Basophils % 0.5 % (0-1.3); Eosinophils % 2.7 % (0-4.4); Lymphocytes % 10.7 % (15.3-44.8); MCH 30.2 pg (27.0-35.0); MCV 88.8 fL (80-100); MPV 8.3 fL (7.6-11.3); Monocytes % 7.1 % (3.3-12.3); RBC Red Blood Cell Count 3.26 M/uL (4.33-5.43)
[2018-03-26 04:35] LABS: Magnesium 2.2 mg/dL (1.8-2.4); Potassium 4.6 mmol/L (3.5-5.1)
[2018-03-26] MEDS: PANTOPRAZOLE 40MG TABLET PO SCH (08:04)
[2018-03-26] MEDS: INSULIN -REGULAR HUMAN 50 UNIT/0.5 ML ML SQ SCH ×4 (08:05→20:20)
[2018-03-26] MEDS ORDERED: HOME MED 1 EA UNK (Losartan Potassium [Losartan Potassium] 100 MG) PO SCH (09:00)
[2018-03-26] MEDS ORDERED: HOME MED 1 EA UNK (Magnesium Oxide [Magnesium Oxide] 1 TAB) PO SCH (09:00)
[2018-03-26] MEDS ORDERED: MAGNESIUM OXIDE 400 MG TAB PO SCH (09:00)
[2018-03-26] MEDS ORDERED: ISOSORBIDE MONONITRATE PO SCH (09:00)
[2018-03-26] MEDS: ARFORMOTEROL TARTRATE 15 MCG/2 ML VIAL.NEB NEB SCH ×2 (10:00→19:29)
[2018-03-26] MEDS: IPRATROPIUM BROM 0.5MG/2.5ML NEB PRN ×2 (10:00→19:29)
[2018-03-26] MEDS: ISOSORBIDE MONO SR 60 MG TAB PO SCH (10:01)
[2018-03-26] MEDS: ISOSORBIDE MONO 10 MG TAB PO SCH (10:01)
[2018-03-26] MEDS: FERROUS GLUCONATE 300 MG TAB PO SCH (10:02)
[2018-03-26] MEDS: APIXABAN 5 MG TABLET PO SCH ×2 (10:03→20:19)
[2018-03-26] MEDS: MAGNESIUM OXIDE 400 MG TAB PO SCH (10:03)
[2018-03-26] MEDS: SOTALOL HCL 80 MG TAB PO SCH ×2 (10:03→20:19)
[2018-03-26] MEDS: SERTRALINE HCL 100 MG TAB PO SCH (10:03)
[2018-03-26] MEDS: LOSARTAN POTASSIUM 50 MG TABLET PO SCH (10:04)
[2018-03-26] MEDS: FINASTERIDE 5 MG TAB PO SCH (10:04)
--- NOTE | 2018-03-26 10:29 | RAD REPORT ---
EXAM DESCRIPTION: MRI - Foot Right Wo Cont - 03/26/2018 9:04 am CLINICAL HISTORY: Right foot pain and swelling with ulceration COMPARISON: X-ray March 24, 2018 TECHNIQUE: Axial, sagittal, and coronal magnetic images of the foot were obtained FINDINGS: Bony destruction involves the distal aspect of the first proximal phalanx. Abnormal signal involves most of the first proximal and first distal phalanx. A soft tissue ulceration is seen media lly. A soft tissue abscess is not seen. IMPRESSION: Osteomyelitis involving the first proximal and first distal phalanx
[2018-03-26] MEDS: VANCOMYCIN 2 GM in NA CHLORIDE 0.9% 500 ML IVPB SCH (20:19)
[2018-03-26] MEDS: ATORVASTATIN 80 MG TAB PO SCH (20:19)
--- NOTE | 2018-03-26 21:58 | PN ---
Subjective: The patient lying in bed. Denies any headache, nausea, vomiting, chest pain, abdominal pain, constipation, or diarrhea. Has decided to go for a BKA, which is going to be happening either Monday or Monday by surgical team. Objective: Vital Signs: Temperature 97, pulse 77, respirations 16, blood pressure 140/64. Lungs: Basal crackles. Heart: S1, S2. Regular. Abdomen: Soft, nontender. Bowel sounds positive. extremity: No edema. Decreased circulation noted in both legs. Laboratory Data: WBC 10,000, down from 14,000; hemoglobin 9.9; platelets are 214. Chemistry shows s odium 137, potassium 4.6, chloride 101, bicarb 32, BUN 49, creatinine 1.9. Current antibiotic includes Zosyn and vancomycin. Assessment And Plan: Right foot gangrenous changes with diabetic foot ulcer and osteomyelitis. I ag ree with BKA. Also suggested for possible vascular surgery evaluation for both legs, status post BKA . We will follow the patient closely. Continue antibiotic post BKA. NF/MODL Voice ID: [id number] Report ID: [id number]
--- NOTE | 2018-03-26 22:43 | PN ---
Date of Progress Note: 03/26/2018 Diagnosis: Right foot necrotic diabetic ulcer with gangrenous changes, osteomyelitis. Review of Systems: Ten points otherwise unremarkable. Physical Examination: General: The patient is awake and alert. No distress. Chest: Bilateral breath sounds. Abdomen: Soft and depressible. No guarding or rebound. Extremities: Over the right foot, the patient has multiple areas of open wounds with necrotic foul-s melling content, with gangrenous changes, especially first, third, second, and fourth toe. There is bone exposed, distal circulation of the bone itself. MRI of that foot shows a destructive osteomyeli tis in several phalanx on the same foot. Assessment: A 73-year-old patient with destructive osteomyelitis, gangrenous changes of the right fo ot. Patient coming today. He is ready to have the right below-knee amputation. His family is prese nt. The pros and cons were explained to him in details and they may be in the determination. Benefi ts, alternatives, and risks were explained to the patient, which include but are not limited to infec tion, bleeding, damage to adjacent structures, anesthesia complication, GA, and even . They als o understands this may not relieve the symptoms. He might need more than one surgical intervention. They also understands the importance of being compliant with treatment and also risks of the flap fa ilure. They understood and they will sign a consent. The patient will be kept n.p.o. after midnight . BEST/IVORY Voice ID: [id number] Report ID: [id number]
[2018-03-27] MEDS: PIPER/TAZO/NS 3.375gm 3.375 GM/100 ML BAG IVPB SCH ×3 (01:14→10:30)
[2018-03-27] MEDS: MORPHINE 2 MG/ML SYR IV PRN ×4 (02:30→21:40)
[2018-03-27 04:14] LABS: Absolute Lymphocytes (CBC) 0.8 K/uL (0.7-4.9); Absolute Monocytes 0.7 K/uL (0.1-1.3); Absolute Neutrophil 8.7 K/uL (1.8-8.0); Basophils % 0.7 % (0-1.3); Eosinophils % 2.9 % (0-4.4); Hematocrit 27.7 % (39.6-49.0); Lymphocytes % 7.8 % (15.3-44.8); MCH 29.6 pg (27.0-35.0); MPV 8.2 fL (7.6-11.3); RBC Red Blood Cell Count 3.11 M/uL (4.33-5.43)
[2018-03-27 04:32] LABS: Magnesium 2.2 mg/dL (1.8-2.4); Potassium 4.5 mmol/L (3.5-5.1)
[2018-03-27] MEDS: INSULIN -REGULAR HUMAN 50 UNIT/0.5 ML ML SQ SCH ×4 (07:30→21:43)
[2018-03-27] MEDS: PANTOPRAZOLE 40MG TABLET PO SCH (07:30)
[2018-03-27] MEDS: ARFORMOTEROL TARTRATE 15 MCG/2 ML VIAL.NEB NEB SCH ×2 (08:15→20:17)
[2018-03-27] MEDS: IPRATROPIUM BROM 0.5MG/2.5ML NEB PRN (08:15)
[2018-03-27] MEDS: MUPIROCIN 2% OINT 22GM TUBE TOP SCH (09:00)
[2018-03-27] MEDS: LOSARTAN POTASSIUM 50 MG TABLET PO SCH (09:00)
[2018-03-27] MEDS: MAGNESIUM OXIDE 400 MG TAB PO SCH (09:00)
[2018-03-27] MEDS: FINASTERIDE 5 MG TAB PO SCH (09:00)
[2018-03-27] MEDS: FERROUS GLUCONATE 300 MG TAB PO SCH (09:00)
[2018-03-27] MEDS: SERTRALINE HCL 100 MG TAB PO SCH (09:00)
[2018-03-27] MEDS: SOTALOL HCL 80 MG TAB PO SCH ×2 (09:00→21:40)
[2018-03-27] MEDS: APIXABAN 5 MG TABLET PO SCH ×2 (09:00→21:42)
[2018-03-27] MEDS: ISOSORBIDE MONO SR 60 MG TAB PO SCH (09:00)
[2018-03-27] MEDS: ISOSORBIDE MONO 10 MG TAB PO SCH (09:00)
[2018-03-27] MEDS ORDERED: NA CHLORIDE 0.9% 1,000 ML ONE ×2 (09:48→12:27)
[2018-03-27] MEDS ORDERED: ONDANSETRON 4 MG/2 ML VIAL ONE (09:51)
[2018-03-27] MEDS ORDERED: PROPOFOL 200 MG/20 ML VIAL IV ONE (09:51)
[2018-03-27] MEDS ORDERED: FENTANYL CITR 100 MCG/2 ML ONE (09:51)
[2018-03-27] MEDS ORDERED: MIDAZOLAM HCL 2 MG/2 ML INJ ONE (09:51)
[2018-03-27] MEDS ORDERED: INSULIN -REGULAR HUMAN 50 UNIT/0.5 ML ML ONE (09:59)
[2018-03-27] MEDS ORDERED: EPHEDRINE SULF 50 MG/ML SYR ONE (10:34)
--- NOTE | 2018-03-27 12:35 | P.BOP ---
Preoperative diagnosis: right foot gangrene Postoperative diagnosis: same Primary procedure: Right below knee amputation Transportation Planner: Fabiana Chiu Estimated blood loss: <100cc Specimen: foot Findings: as above Anesthesia: General Complications: None Transferred to: Recovery Room Condition: Good
[2018-03-27] MEDS: MORPHINE 4 MG/ML SYR ONE ×4 (12:49→13:04)
[2018-03-27] MEDS ORDERED: MORPHINE 4 MG/ML SYR ONE (13:16)
[2018-03-27] MEDS: ATORVASTATIN 80 MG TAB PO SCH (21:41)
[2018-03-27] MEDS: VANCOMYCIN 2 GM in NA CHLORIDE 0.9% 500 ML IVPB SCH (22:01)
[2018-03-28] MEDS: PIPER/TAZO/NS 3.375gm 3.375 GM/100 ML BAG IVPB SCH ×3 (00:52→16:36)
[2018-03-28] MEDS: HYDRALAZINE HCL 20 MG/ML VIAL IV PRN (01:50)
[2018-03-28] MEDS: MORPHINE 4 MG/ML SYR IV PRN ×5 (01:50→20:28)
--- NOTE | 2018-03-28 02:28 | PN ---
The patient had planned surgery today without any complications. The patient's blood sugar will be m onitored, and he will be continued on insulin schedule. ZAIRA/IVORY Voice ID: [id number] Report ID: [id number]
[2018-03-28 04:30] LABS: Absolute Lymphocytes (CBC) 0.9 K/uL (0.7-4.9); Absolute Monocytes 0.9 K/uL (0.1-1.3); Absolute Neutrophil 13.5 K/uL (1.8-8.0); Basophils % 0.9 % (0-1.3); Eosinophils % 1.1 % (0-4.4); Hematocrit 25.7 % (39.6-49.0); Lymphocytes % 5.6 % (15.3-44.8); MCH 29.6 pg (27.0-35.0); MCV 88.9 fL (80-100); MPV 8.1 fL (7.6-11.3); Monocytes % 5.5 % (3.3-12.3)
[2018-03-28 04:49] LABS: Potassium 4.7 mmol/L (3.5-5.1)
[2018-03-28 05:02] LABS: Blood Morphology Comment NOT SEEN (NOT SEEN); Platelet Estimate ADEQ
[2018-03-28] MEDS: ARFORMOTEROL TARTRATE 15 MCG/2 ML VIAL.NEB NEB SCH ×2 (07:41→20:20)
[2018-03-28] MEDS: APIXABAN 5 MG TABLET PO SCH ×2 (08:56→20:28)
[2018-03-28] MEDS: SERTRALINE HCL 100 MG TAB PO SCH (08:57)
[2018-03-28] MEDS: MAGNESIUM OXIDE 400 MG TAB PO SCH (08:57)
[2018-03-28] MEDS: FINASTERIDE 5 MG TAB PO SCH (08:57)
[2018-03-28] MEDS: LOSARTAN POTASSIUM 50 MG TABLET PO SCH (08:57)
[2018-03-28] MEDS: SOTALOL HCL 80 MG TAB PO SCH ×2 (08:57→20:29)
[2018-03-28] MEDS: PANTOPRAZOLE 40MG TABLET PO SCH (08:58)
[2018-03-28] MEDS: ISOSORBIDE MONO SR 60 MG TAB PO SCH (08:58)
[2018-03-28] MEDS: FERROUS GLUCONATE 300 MG TAB PO SCH (08:58)
[2018-03-28] MEDS: ISOSORBIDE MONO 10 MG TAB PO SCH (08:59)
[2018-03-28] MEDS: MUPIROCIN 2% OINT 22GM TUBE TOP SCH (09:00)
[2018-03-28] MEDS: INSULIN -REGULAR HUMAN 50 UNIT/0.5 ML ML SQ SCH ×4 (09:00→21:35)
--- NOTE | 2018-03-28 09:59 | CON ---
Date of Consultation: 03/27/2018 The patient admitted on 03/24/[address] Herrera's Service. I saw him on 03/27/2018 for cardiac clear ance. History Of Present Illness: Mr. Burden is a 73-year-old white male. He is being seen by Dr. Espinal possible urgent surgery for osteomyelitis. He has an extensive past medical history including coron jeronimo artery disease, status post stent. He has a history of atrial fibrillation, COPD, Crohn disease, congestive heart failure, diabetes, hypertension, dyslipidemia as well as depression. He came in wi th osteomyelitis of the right foot. There is a possibility of surgery. We were asked to clear him. He has no cardiac symptoms at this point. Denies chest pain. He denies palpitations or syncope. Review of Systems: Negative. Social History: Negative. Family History: Negative. Medications: Include inhalers, Eliquis, aspirin, Lipitor, Lasix, insulin, sotalol, Imdur, magnesium, potassium, and Protonix. Physical Examination: Vital Signs: Stable. He was in atrial fibrillation, rate controlled. HEENT: Negative. Neck: Supple with no bruit. Chest: Clear. Cardiac: Exam revealed atrial fibrillation with aortic sclerosis murmur. No gallops or rubs. Abdomen: Obese, but benign. Extremities: Revealed no clubbing, cyanosis, or edema. Diagnostic Data: Fairly unremarkable. He just had an echocardiogram showing normal ejection fractio n. No wall motion abnormalities. Impression And Plan: 1.The patient with multiple medical problems including chronic diastolic congestive heart failure, a trial fibrillation. He seem to be stable and asymptomatic. He is on Betapace. He is on Eliquis. H e is on aspirin as well as Imdur. He is not having any symptoms in that regard and should be an acce ptable risk from a surgical standpoint. 2.Coronary artery disease, status post stent. 3.Chronic obstructive pulmonary disease. 4.Crohn disease. 5.Hypertension. 6.Diabetes. 7.Dyslipidemia. I will continue the present regimen. No need for any extensive cardiac workup at this point. Should have followup from a cardiovascular standpoint soon with us in the office. We will be available for questions if the need arise. ОЛЕГ/IVORY Voice ID: [id number] Report ID: [id number]
[2018-03-28] MEDS: HYDROCODONE/APAP 5/325 MG TAB PO PRN ×2 (14:54→21:36)
--- NOTE | 2018-03-28 16:34 | OP ---
Date of Procedure: 03/27/2018 Surgeon: Jose Espinal MD Neurophysiology Tech: JAYME Franklin. Preoperative Diagnosis: Right foot gangrene. Postoperative Diagnosis: Right foot gangrene. Procedure: Right below-knee amputation. Estimated Blood Loss: Less than 100. Specimen: Foot. Anesthesia: General plus local. Indications: This is a case of a male, who came to us with right foot gangrene, severe destructive o steomyelitis, and the and family and primary doctors sat down with him until he decided that he wants a below-knee amputation with benefits, alternatives, and risks including, but not limited to infecti on, bleeding, damage to adjacent structures, anesthesia complication, flap failure, [place], even . He also understands this may not relieve any symptoms. He might need more than one surgical interven tion. He understood, signed a consent. Description Of Procedure: The patient was brought to the operating room, placed in supine position. Anesthesia was done without complication. Right foot was prepped and draped in a sterile fashion. Right leg also was prepped the same way. Time-out was called. At that moment, anterior and posterio r skin incisions were outlined with a marking pen. Anterior incision was made about 12 cm below the tibial tuberosity. It was extended laterally and medially towards the edges of the gastrocnemius mus aye all the way down to about 12 cm, posteriorly, and that helped us to create the posterior flap. S kin and subcutaneous tissues were incised down to the fascia. Saphenous veins were identified and li gated. The fascia and the muscle were then divided with Bovie cauterizer at the same level of the sk in. The muscles in the anterior and lateral compartments were divided exposing the anterior tibial v essels, were suture ligated, once again looked calcified. Tibial periosteum was incised circumferent ially. Using the periosteal elevator, the tibial periosteum was stripped about 2 cm proximal. The t ibia was transected with a Gigli saw, proximal to the skin incision and beveled anteriorly. The fibu la was then exposed, dissected circumferentially, and we used a bone cutter to transect about 2 cm pr oximal to the tibia. The amputation was then completed by using a Bovie cauterizer and a knife trans ecting the soleus muscle, gastrocnemius muscle. Soleal veins and posterior tibial and peroneal vesse ls were carefully ligated. The sharp bony edges were then filed. The fascia of the anterior and pos terior flaps were approximated after putting a JAHAIRA drain and exiting through a different new wound wit h 3-0 nylon. Once those fascia was approximated with Vicryl, then the skin was approximated with sta ples. The sponge count and instrument counts were correct. Dressings were applied. The patient thompson erated the procedure well. The patient was sent to Recovery in stable condition. BEST/IVORY Voice ID: [id number] Report ID: [id number]
--- NOTE | 2018-03-28 17:25 | PN ---
Subjective: The patient had a below-knee amputation done by surgical team, somnolent, because of сергей n medication. Objective: Vital Signs: Temperature 98, pulse 94, respirations 16, blood pressure 151/67. Lungs: Basal crackles. Heart: S1, S2. Regular. Abdomen: Soft, nontender. Bowel sounds positive. Extremities: Status post right BKA. Wound under surgical dressing. Laboratory Data: WBC 15.5, hemoglobin 8.6, platelets are 225. Chemistry shows sodium 137, potassium 4.7, chloride 102, bicarb 29, BUN 20, creatinine 1.2, glucose 282. Micro data shows MRSA and Entero bacter from the right foot wound. The patient is currently being treated with the Zosyn and vancomyc in. Assessment And Plan: Status post right BKA for gangrenous changes to the foot. Continue IV antibiot ic for now. Surgical team requesting not to remove dressing for 1 week. We will continue antibiotic till then and follow up on the patient. Continue supportive care and wound care. NF/MODL Voice ID: [id number] Report ID: [id number]
[2018-03-28] MEDS: ATORVASTATIN 80 MG TAB PO SCH (20:28)
[2018-03-28] MEDS: VANCOMYCIN 2 GM in NA CHLORIDE 0.9% 500 ML IVPB SCH (20:31)
--- NOTE | 2018-03-28 23:52 | PN ---
Date of Progress Note: 03/28/2018 Diagnosis: Status post a right below-knee amputation. Subjective: The patient is doing well. No complaint. Objective: General: He is talkative. He is not in distress. HEENT: Pupils are equal and reactive, anicteric. Neck: Supple. Chest: Clear. Abdomen: Soft and depressible. No guarding, rebound. Extremities: Right leg area, intact surgical site. JAHAIRA drain, serosanguineous, minimal. Laboratory Data: The blood work shows WBC count of 15.5, hemoglobin of 8.6. Assessment: A 73-year-old patient, status post right BKA due to severe osteomyelitis and cellulitis. The patient will continue on antibiotics and keep dressings intact, JAHAIRA output. Rehab consult. BEST/IVORY Voice ID: [id number] Report ID: [id number]
[2018-03-29] MEDS: PIPER/TAZO/NS 3.375gm 3.375 GM/100 ML BAG IVPB SCH ×3 (00:19→16:58)
[2018-03-29] MEDS: HYDROCODONE/APAP 5/325 MG TAB PO PRN (03:11)
[2018-03-29] MEDS: MORPHINE 4 MG/ML SYR IV PRN ×4 (04:28→21:20)
[2018-03-29] MEDS ORDERED: MIDAZOLAM HCL 2 MG/2 ML INJ ONE (08:00)
[2018-03-29] MEDS ORDERED: GLYCOPYRROLATE 0.2 MG/ML SYR ONE (08:00)
[2018-03-29] MEDS ORDERED: PROPOFOL 200 MG/20 ML VIAL IV ONE (08:00)
[2018-03-29] MEDS ORDERED: FENTANYL CITR 250 MCG/5 ML ONE (08:00)
[2018-03-29] MEDS ORDERED: ONDANSETRON 4 MG/2 ML VIAL ONE (08:01)
[2018-03-29] MEDS ORDERED: ROCURONIUM 50 MG/5 ML VIAL IV ONE (08:02)
[2018-03-29] MEDS: ARFORMOTEROL TARTRATE 15 MCG/2 ML VIAL.NEB NEB SCH ×2 (08:21→20:26)
[2018-03-29] MEDS: INSULIN -REGULAR HUMAN 50 UNIT/0.5 ML ML SQ SCH ×4 (08:33→21:17)
[2018-03-29] MEDS: PANTOPRAZOLE 40MG TABLET PO SCH (08:34)
[2018-03-29] MEDS: SOTALOL HCL 80 MG TAB PO SCH ×2 (08:34→21:16)
[2018-03-29] MEDS: MUPIROCIN 2% OINT 22GM TUBE TOP SCH (08:34)
[2018-03-29] MEDS: APIXABAN 5 MG TABLET PO SCH ×2 (08:35→21:16)
[2018-03-29] MEDS: MAGNESIUM OXIDE 400 MG TAB PO SCH (08:35)
[2018-03-29] MEDS: LOSARTAN POTASSIUM 50 MG TABLET PO SCH (08:36)
[2018-03-29] MEDS: FERROUS GLUCONATE 300 MG TAB PO SCH (08:36)
[2018-03-29] MEDS: ISOSORBIDE MONO SR 60 MG TAB PO SCH (08:37)
[2018-03-29] MEDS: SERTRALINE HCL 100 MG TAB PO SCH (08:37)
[2018-03-29] MEDS: ISOSORBIDE MONO 10 MG TAB PO SCH (08:37)
[2018-03-29] MEDS: FINASTERIDE 5 MG TAB PO SCH (08:54)
[2018-03-29 15:20] LABS: Absolute Lymphocytes (CBC) 0.8 K/uL (0.7-4.9); Absolute Monocytes 0.8 K/uL (0.1-1.3); Absolute Neutrophil 8.5 K/uL (1.8-8.0); Basophils % 0.4 % (0-1.3); Eosinophils % 2.4 % (0-4.4); Hematocrit 24.6 % (39.6-49.0); Lymphocytes % 7.7 % (15.3-44.8); MCH 29.8 pg (27.0-35.0); MCV 88.8 fL (80-100); Monocytes % 7.6 % (3.3-12.3); RBC Red Blood Cell Count 2.77 M/uL (4.33-5.43)
[2018-03-29 15:22] LABS: Potassium 4.2 mmol/L (3.5-5.1)
--- NOTE | 2018-03-29 19:11 | PN ---
Subjective: The patient lying in bed. Denies any headache, nausea, vomiting, chest pain, abdominal pain, constipation, or diarrhea. Objective: Vital Signs: Temperature 98, pulse 79, respirations 16, blood pressure 152/68. Lungs: Basal crackles. Heart: S1, S2. Regular. Abdomen: Soft, nontender. Bowel sounds positive. Extremity: Right BKA wound, under surgical dressing. As per request of Surgical team, we will not o pen the dressing at this time. Laboratory Data: No new labs available at this time. Blood sugars running into the high 200s to 300 . Micro-data is showing patient has MRSA Enterobacter cloacae, and xanthomonas maltophilia. The pat ient is currently being treated with IV Zosyn and vancomycin. Assessment And Plan: Right lower extremity below-knee amputation secondary to gangrenous changes to the foot and poor circulation. Wound cultures are growing methicillin-resistant Staphylococcus aureu s, enterococcus cloacae, and xanthomonas maltophilia. The patient is to be continued on same antibio tic. Repeat labs. We will follow the patient closely. DEION/MODL Voice ID: [id number] Report ID: [id number]
[2018-03-29] MEDS: ATORVASTATIN 80 MG TAB PO SCH (21:16)
[2018-03-29] MEDS: VANCOMYCIN 2 GM in NA CHLORIDE 0.9% 500 ML IVPB SCH (21:18)
--- NOTE | 2018-03-29 22:25 | PN ---
Subjective: The patient is doing very well. He is afebrile. His chest is almost wheezing free. Ph ysical Therapy consult has been done. The patient would require rehab in view of his amputation. As soon as this is arranged, the patient will be transferred to rehab facility. ZAIRA/IVORY Voice ID: [id number] Report ID: [id number]
[2018-03-30] MEDS: PIPER/TAZO/NS 3.375gm 3.375 GM/100 ML BAG IVPB SCH ×3 (01:26→17:00)
[2018-03-30] MEDS: MORPHINE 4 MG/ML SYR IV PRN ×4 (01:27→21:31)
[2018-03-30 06:41] LABS: Phosphorus 2.6 mg/dL (2.5-4.9); Potassium 4.3 mmol/L (3.5-5.1)
[2018-03-30] MEDS: PANTOPRAZOLE 40MG TABLET PO SCH (07:30)
[2018-03-30] MEDS: ARFORMOTEROL TARTRATE 15 MCG/2 ML VIAL.NEB NEB SCH ×2 (07:37→20:00)
[2018-03-30] MEDS: HYDROCODONE/APAP 5/325 MG TAB PO PRN (08:49)
[2018-03-30] MEDS: MUPIROCIN 2% OINT 22GM TUBE TOP SCH (08:49)
[2018-03-30] MEDS: LOSARTAN POTASSIUM 50 MG TABLET PO SCH (08:50)
[2018-03-30] MEDS: MAGNESIUM OXIDE 400 MG TAB PO SCH (08:50)
[2018-03-30] MEDS: SERTRALINE HCL 100 MG TAB PO SCH (08:50)
[2018-03-30] MEDS: FINASTERIDE 5 MG TAB PO SCH (08:50)
[2018-03-30] MEDS: ISOSORBIDE MONO 10 MG TAB PO SCH (08:51)
[2018-03-30] MEDS: ISOSORBIDE MONO SR 60 MG TAB PO SCH (08:51)
[2018-03-30] MEDS: APIXABAN 5 MG TABLET PO SCH ×2 (08:51→21:31)
[2018-03-30] MEDS: FERROUS GLUCONATE 300 MG TAB PO SCH (08:53)
[2018-03-30] MEDS: SOTALOL HCL 80 MG TAB PO SCH ×2 (08:55→21:32)
[2018-03-30] MEDS: INSULIN -REGULAR HUMAN 50 UNIT/0.5 ML ML SQ SCH ×4 (09:56→21:32)
[2018-03-30] MEDS ORDERED: GLUCAGON 1 MG/VIAL IM PRN (17:04)
[2018-03-30] MEDS ORDERED: D50W 25 GM/50 ML SYRINGE IV PRN (17:04)
[2018-03-30] MEDS: IPRATROPIUM BROM 0.5MG/2.5ML NEB PRN (20:00)
[2018-03-30] MEDS: ATORVASTATIN 80 MG TAB PO SCH (21:32)
[2018-03-30] MEDS: INSULIN GLARGINE 100 UNITS/ML SQ SCH (21:33)
--- NOTE | 2018-03-30 21:33 | PN ---
Subjective: The patient lying in bed, continues to have discomfort in the right leg. Currently on p ain medication and antibiotic. Denies any headache, nausea, vomiting, chest pain, abdominal pain, co nstipation, diarrhea. Objective: Vital Signs: Temperature 98, pulse 84, respirations 18, blood pressure 120/60. Lungs: Basal crackles. Heart: S1, S2. Regular. Abdomen: Soft, nontender. Bowel sounds positive. Extremities: Right BKA wound under surgical dressing. JAHAIRA drain is draining 10 cc per shift. Labs: No new labs available at this time except chemistry; sodium 136, potassium 4.3, chloride 101, bicarb 31, BUN 15, creatinine 1.2, glucose 257. Micro data shows some MRSA Enterobacter cloacae, mg thomonas maltophilia from the right foot, which has been amputated. Assessment And Plan: Right below-knee amputation. Continue IV antibiotic and wound care, pending un controlled diabetes mellitus. Recommend to have better monitoring of sugar. We will follow the maria ent as needed. DEION/MODL Voice ID: [id number] Report ID: [id number]
--- NOTE | 2018-03-30 22:24 | PN ---
The patient is postoperative leg amputation. He is doing well except for his blood sugars. His insu mane will be increased. The patient is being prepared for transfer to rehab program; however, he has not been accepted. Once the patient is accepted, he can be transferred to rehab program. Otherwise, the patient needs to be continued on the same orders. ZAIRA/IVORY Voice ID: [id number] Report ID: [id number]
[2018-03-31] MEDS: IPRATROPIUM BROM 0.5MG/2.5ML NEB PRN (07:45)
[2018-03-31] MEDS: ARFORMOTEROL TARTRATE 15 MCG/2 ML VIAL.NEB NEB SCH ×2 (07:45→20:00)
[2018-03-31] MEDS: INSULIN -REGULAR HUMAN 50 UNIT/0.5 ML ML SQ SCH ×4 (08:29→20:55)
[2018-03-31] MEDS: APIXABAN 5 MG TABLET PO SCH ×2 (08:30→20:54)
[2018-03-31] MEDS: FERROUS GLUCONATE 300 MG TAB PO SCH (08:30)
[2018-03-31] MEDS: PANTOPRAZOLE 40MG TABLET PO SCH (08:30)
[2018-03-31] MEDS: LOSARTAN POTASSIUM 50 MG TABLET PO SCH (08:30)
[2018-03-31] MEDS: FINASTERIDE 5 MG TAB PO SCH (08:30)
[2018-03-31] MEDS: SERTRALINE HCL 100 MG TAB PO SCH (08:30)
[2018-03-31] MEDS: MAGNESIUM OXIDE 400 MG TAB PO SCH (08:31)
[2018-03-31] MEDS: SOTALOL HCL 80 MG TAB PO SCH ×2 (08:31→20:53)
[2018-03-31] MEDS: MUPIROCIN 2% OINT 22GM TUBE TOP SCH (08:32)
[2018-03-31] MEDS: ISOSORBIDE MONO 10 MG TAB PO SCH (08:32)
[2018-03-31] MEDS: ISOSORBIDE MONO SR 60 MG TAB PO SCH (08:32)
[2018-03-31] MEDS: INSULIN GLARGINE 100 UNITS/ML SQ SCH (20:54)
[2018-03-31] MEDS: ATORVASTATIN 80 MG TAB PO SCH (20:54)
[2018-04-01] MEDS: HYDRALAZINE HCL 20 MG/ML VIAL IV PRN (06:42)
[2018-04-01] MEDS: INSULIN -REGULAR HUMAN 50 UNIT/0.5 ML ML SQ SCH ×4 (07:30→21:02)
[2018-04-01] MEDS: LOSARTAN POTASSIUM 50 MG TABLET PO SCH (08:17)
[2018-04-01] MEDS: PANTOPRAZOLE 40MG TABLET PO SCH (08:17)
[2018-04-01] MEDS: SOTALOL HCL 80 MG TAB PO SCH ×2 (08:17→21:01)
[2018-04-01] MEDS: APIXABAN 5 MG TABLET PO SCH ×2 (08:17→21:01)
[2018-04-01] MEDS: MAGNESIUM OXIDE 400 MG TAB PO SCH (08:17)
[2018-04-01] MEDS: SERTRALINE HCL 100 MG TAB PO SCH (08:17)
[2018-04-01] MEDS: ISOSORBIDE MONO 10 MG TAB PO SCH (08:18)
[2018-04-01] MEDS: ISOSORBIDE MONO SR 60 MG TAB PO SCH (08:18)
[2018-04-01] MEDS: FINASTERIDE 5 MG TAB PO SCH (08:18)
[2018-04-01] MEDS: FERROUS GLUCONATE 300 MG TAB PO SCH (08:18)
[2018-04-01] MEDS: MUPIROCIN 2% OINT 22GM TUBE TOP SCH (08:20)
[2018-04-01] MEDS: MORPHINE 4 MG/ML SYR IV PRN ×3 (08:28→20:59)
[2018-04-01] MEDS: ARFORMOTEROL TARTRATE 15 MCG/2 ML VIAL.NEB NEB SCH ×2 (08:41→19:47)
--- NOTE | 2018-04-01 11:11 | P.PN ---
Subjective Date of Service: 04/01/18 Primary Care Provider: Dr. Weston(I am covering him today) Chief Complaint: Status post right below-knee amputation He is doing well denies any pain eating and drinking well no complaints waiting for rehab Review of Systems Unremarkable Physical Examination - Vital Signs Temperature: 98.4 F Blood Pressure: 151/68 Pulse: 80 Respirations: 18 Pulse Ox (%): 98 - Physical Exam General: Alert, Oriented x3 Respiratory: Clear to auscultation bilaterally Cardiovascular: No edema - Studies Medications List Reviewed: Yes Assessment And Plan - Current Problems (Diagnosis) (1) Below knee amputation status Current Visit: Yes Status: Acute Plan: Patient is 73 years of age admitted with right below-knee amputation doing well awaiting for transfer to the rehab no new complaints medication list reviewed labs reviewed is mildly anemic Qualifiers: Laterality: right Qualified Code(s): Z89.511 - Acquired absence of right leg below knee
[2018-04-01] MEDS: IPRATROPIUM BROM 0.5MG/2.5ML NEB PRN (19:47)
[2018-04-01] MEDS: INSULIN GLARGINE 100 UNITS/ML SQ SCH (21:01)
[2018-04-01] MEDS: ATORVASTATIN 80 MG TAB PO SCH (21:02)
[2018-04-02] MEDS: MORPHINE 4 MG/ML SYR IV PRN ×3 (04:23→17:01)
[2018-04-02 06:13] LABS: Potassium 4.4 mmol/L (3.5-5.1)
[2018-04-02] MEDS: ARFORMOTEROL TARTRATE 15 MCG/2 ML VIAL.NEB NEB SCH ×2 (08:04→20:15)
[2018-04-02] MEDS: MUPIROCIN 2% OINT 22GM TUBE TOP SCH (09:00)
[2018-04-02] MEDS: SERTRALINE HCL 100 MG TAB PO SCH (09:05)
[2018-04-02] MEDS: FINASTERIDE 5 MG TAB PO SCH (09:05)
[2018-04-02] MEDS: MAGNESIUM OXIDE 400 MG TAB PO SCH (09:05)
[2018-04-02] MEDS: SOTALOL HCL 80 MG TAB PO SCH ×2 (09:06→22:03)
[2018-04-02] MEDS: PANTOPRAZOLE 40MG TABLET PO SCH (09:06)
[2018-04-02] MEDS: FERROUS GLUCONATE 300 MG TAB PO SCH (09:06)
[2018-04-02] MEDS: ISOSORBIDE MONO 10 MG TAB PO SCH (09:07)
[2018-04-02] MEDS: LOSARTAN POTASSIUM 50 MG TABLET PO SCH ×2 (09:07→09:10)
[2018-04-02] MEDS: APIXABAN 5 MG TABLET PO SCH ×2 (09:08→22:04)
[2018-04-02] MEDS: ISOSORBIDE MONO SR 60 MG TAB PO SCH (09:08)
[2018-04-02] MEDS: INSULIN -REGULAR HUMAN 50 UNIT/0.5 ML ML SQ SCH ×4 (09:11→22:06)
--- NOTE | 2018-04-02 13:39 | PN ---
Date of Progress Note: 04/02/2018 Subjective: The patient seen and examined. Chart reviewed and case discussed with RN. The patient doing well. No acute events overnight, not to work with physical therapy. Review of Systems: Negative except as above. Medications: List reviewed. Physical Examination: Vital Signs: Temperature 96.8, heart rate 73, blood pressure 156/70, respirations 20, O2 of 100% on 3 L via nasal cannula. General: Awake, alert, oriented x3, not in any acute distress. Elderly male. BMI 33. CV: S1, S2. No murmurs. Peripheral pulses are present. Respiratory: Moving air well bilaterally. No wheezing. Gastrointestinal: Abdomen is soft, nontender, nondistended. Positive bowel sounds. Extremities: No clubbing, cyanosis, or edema. Musculoskeletal: Right BKA. Neuro: Nonfocal. Skin: Right BKA stump bandaged. No drainage. Laboratory Data: Sodium 135, potassium 4.4, chloride 101, CO2 of 29, BUN 17, creatinine 1.1, glucose 228, calcium 8.2, magnesium 2. WBC is pending. Blood cultures, no growth to date. Five-days wound culture from the right foot shows MRSA Enterobacter cloacae and xanthomonas maltophilia. Assessment And Plan: 1. Ulcer of the right foot due to diabetes mellitus with osteomyelitis, status post right below knee amputation. Currently not on IV abx. All 3 organisms from wound cultures sensitive to bactrim - will start. 2. Chronic anticoagulation use 3. Chronic atrial fibrillation. 4. Diabetes mellitus type 2 with long-term use of insulin with hyperglycemia. Continue sliding scale insulin and monitor blood glucose levels. 5. Chronic kidney disease, stage 3, stable. 6. Osteomyelitis of the right great toe, status post below knee amputation. MRI positive. 7. Anemia of chronic disease. Monitor H and H. 8. Generalized anxiety disorder, stable. 9. Congestive heart failure, diastolic dysfunction, stable. 10. Atrial fibrillation, chronic on Betapace. Continue anticoagulation. 11. Chronic obstructive pulmonary disease, chronic bronchitis, stable. 12. Peripheral vascular disease. 13. Hyperlipidemia. Continue home medications. Plan: The patient is awaiting placement to rehab. We will transfer service to Dr. Herrera once he returns. Code status: Full SA/MODL Voice ID: [id number] Report ID: [id number]
[2018-04-02] MEDS: SMZ./TMP. 800/160 MG TABLET PO SCH ×2 (16:00→22:04)
--- NOTE | 2018-04-02 18:04 | PN ---
Subjective: The patient is lying in bed. Denies any headache, nausea, vomiting, chest pain, abdomin al pain, constipation, or diarrhea. Objective: Vital Signs: Temperature 97, pulse 78, respirations 18, blood pressure 145/64. HEENT: Unremarkable. Lungs: Clear to auscultation. Heart: S1, S2, regular. Abdomen: Soft, nontender. Bowel sounds positive. Extremities: Right leg under surgical dressing. Laboratory Data: Labs reviewed. Currently being treated with Bactrim. Assessment And Plan: Status post right below knee amputation for gangrenous ulcer to the right foot. The patient is doing well. Continue antibiotic and supportive care. We will check with surgical t eam for possible opening the wound dressing and continuing wound care. We will follow the patient as needed. DEION/IVORY Voice ID: [id number] Report ID: [id number]
[2018-04-02] MEDS: PROMOD 30 ML DOSE PO SCH (22:03)
[2018-04-02] MEDS: ATORVASTATIN 80 MG TAB PO SCH (22:04)
[2018-04-02] MEDS: HYDROCODONE/APAP 5/325 MG TAB PO PRN (22:04)
[2018-04-02] MEDS: INSULIN GLARGINE 100 UNITS/ML SQ SCH (22:07)
[2018-04-03 04:50] VITALS: BMI 49.0
[2018-04-03 05:02] LABS: Potassium 4.2 mmol/L (3.5-5.1)
[2018-04-03] MEDS: HYDROCODONE/APAP 5/325 MG TAB PO PRN ×3 (05:23→17:19)
[2018-04-03] MEDS: ARFORMOTEROL TARTRATE 15 MCG/2 ML VIAL.NEB NEB SCH ×2 (07:36→21:10)
[2018-04-03] MEDS: PANTOPRAZOLE 40MG TABLET PO SCH (08:20)
[2018-04-03] MEDS: INSULIN -REGULAR HUMAN 50 UNIT/0.5 ML ML SQ SCH ×4 (08:20→20:20)
[2018-04-03] MEDS: SMZ./TMP. 800/160 MG TABLET PO SCH ×2 (08:20→20:22)
[2018-04-03] MEDS: FINASTERIDE 5 MG TAB PO SCH (08:21)
[2018-04-03] MEDS: MUPIROCIN 2% OINT 22GM TUBE TOP SCH (08:21)
[2018-04-03] MEDS: MAGNESIUM OXIDE 400 MG TAB PO SCH (08:21)
[2018-04-03] MEDS: ISOSORBIDE MONO 10 MG TAB PO SCH (08:22)
[2018-04-03] MEDS: APIXABAN 5 MG TABLET PO SCH ×2 (08:22→20:22)
[2018-04-03] MEDS: FERROUS GLUCONATE 300 MG TAB PO SCH (08:22)
[2018-04-03] MEDS: ISOSORBIDE MONO SR 60 MG TAB PO SCH (08:22)
[2018-04-03] MEDS: PROMOD 30 ML DOSE PO SCH ×2 (08:23→20:21)
[2018-04-03] MEDS: SOTALOL HCL 80 MG TAB PO SCH ×2 (08:27→20:22)
[2018-04-03] MEDS: SERTRALINE HCL 100 MG TAB PO SCH (08:27)
[2018-04-03 15:16] LABS: Potassium 4.4 mmol/L (3.5-5.1)
[2018-04-03 15:17] LABS: Absolute Lymphocytes (CBC) 1.1 K/uL (0.7-4.9); Absolute Monocytes 0.5 K/uL (0.1-1.3); Absolute Neutrophil 5.1 K/uL (1.8-8.0); Basophils % 0.5 % (0-1.3); Eosinophils % 4.1 % (0-4.4); Hematocrit 23.6 % (39.6-49.0); Lymphocytes % 15.2 % (15.3-44.8); MCH 28.9 pg (27.0-35.0); MCV 86.4 fL (80-100); MPV 7.6 fL (7.6-11.3); Monocytes % 7.2 % (3.3-12.3); RBC Red Blood Cell Count 2.73 M/uL (4.33-5.43)
--- NOTE | 2018-04-03 19:04 | PN ---
Subjective: The patient is sitting in wheelchair, not in any acute distress. Objective: Vital Signs: Temperature 97, pulse 71, respirations 18, blood pressure 148/67. Lungs: Basal crackles. Heart: S1, S2. Regular. Abdomen: Soft, nontender. Bowel sounds positive. Extremities: Right BKA wound under surgical dressing. Laboratory Data: No new labs available at this time. Assessment And Plan: Status post right BKA. The patient is doing better. Continue antibiotic and s upportive care. Repeat labs. We will follow the patient as needed. NF/MODL Voice ID: [id number] Report ID: [id number]
[2018-04-03] MEDS: INSULIN GLARGINE 100 UNITS/ML SQ SCH (20:20)
[2018-04-03] MEDS: ATORVASTATIN 80 MG TAB PO SCH (20:22)
--- NOTE | 2018-04-03 22:46 | PN ---
The patient is doing better, however, his hemoglobin is 7.9. In view of his multiple medical issues, the patient will be given 1 unit of packed RBC. This might even help with his wound healing as well as dyspnea. I will discuss his discharge plan with the licensed clinical social worker. ZAIRA/IVORY Voice ID: [id number] Report ID: [id number]
[2018-04-04] MEDS ORDERED: NA CHLORIDE 0.9% 50 ML ONE (00:22)
[2018-04-04 06:34] LABS: Hematocrit 25.6 % (39.6-49.0)
[2018-04-04] MEDS: INSULIN -REGULAR HUMAN 50 UNIT/0.5 ML ML SQ SCH ×4 (07:30→21:00)
[2018-04-04] MEDS: IPRATROPIUM BROM 0.5MG/2.5ML NEB PRN ×2 (07:34→20:00)
[2018-04-04] MEDS: ARFORMOTEROL TARTRATE 15 MCG/2 ML VIAL.NEB NEB SCH ×2 (07:34→20:00)
[2018-04-04] MEDS: SMZ./TMP. 800/160 MG TABLET PO SCH ×2 (08:36→21:24)
[2018-04-04] MEDS: APIXABAN 5 MG TABLET PO SCH ×2 (08:36→21:24)
[2018-04-04] MEDS: SERTRALINE HCL 100 MG TAB PO SCH (08:36)
[2018-04-04] MEDS: PANTOPRAZOLE 40MG TABLET PO SCH (08:36)
[2018-04-04] MEDS: MAGNESIUM OXIDE 400 MG TAB PO SCH (08:36)
[2018-04-04] MEDS: FERROUS GLUCONATE 300 MG TAB PO SCH (08:36)
[2018-04-04] MEDS: SOTALOL HCL 80 MG TAB PO SCH ×2 (08:37→21:24)
[2018-04-04] MEDS: ISOSORBIDE MONO SR 60 MG TAB PO SCH (08:37)
[2018-04-04] MEDS: FINASTERIDE 5 MG TAB PO SCH (08:37)
[2018-04-04] MEDS: ISOSORBIDE MONO 10 MG TAB PO SCH (08:39)
[2018-04-04] MEDS: PROMOD 30 ML DOSE PO SCH ×2 (08:40→21:25)
[2018-04-04] MEDS: LOSARTAN POTASSIUM 50 MG TABLET PO SCH (08:52)
[2018-04-04] MEDS: MUPIROCIN 2% OINT 22GM TUBE TOP SCH (09:00)
[2018-04-04 13:01] LABS: Absolute Lymphocytes (CBC) 0.8 K/uL (0.7-4.9); Absolute Monocytes 0.5 K/uL (0.1-1.3); Absolute Neutrophil 6.6 K/uL (1.8-8.0); Basophils % 0.6 % (0-1.3); Eosinophils % 2.6 % (0-4.4); Hematocrit 25.5 % (39.6-49.0); Lymphocytes % 10.3 % (15.3-44.8); MCH 29.6 pg (27.0-35.0); MCV 85.8 fL (80-100); MPV 7.6 fL (7.6-11.3); RBC Red Blood Cell Count 2.98 M/uL (4.33-5.43)
[2018-04-04 13:17] LABS: Potassium 4.7 mmol/L (3.5-5.1)
[2018-04-04] MEDS: HYDROCODONE/APAP 5/325 MG TAB PO PRN (14:11)
--- NOTE | 2018-04-04 15:26 | PN ---
Diagnosis: Right foot gangrene, status post right below-knee amputation. Subjective: The patient is doing well. No complaint. Physical Examination: Chest: Clear. Abdomen: Soft and depressible. Extremities: Amputation site is still intact. Martin intact. JAHAIRA removed. Plan: The patient will be transferred to a rehab for reconditioning. Dry dressings over the area. The patient will remain within knee protector in the meantime. We will continue p.o. antibiotics. T here is some residual cellulitis that need to be resolved. BEST/IVORY Voice ID: [id number] Report ID: [id number]
--- NOTE | 2018-04-04 17:16 | PN ---
Subjective: The patient is lying in bed. Denies any headache, nausea, vomiting, chest pain, abdomin al pain, constipation, diarrhea. Objective: Vital Signs: Temperature 97.8, pulse 75, respirations 18, blood pressure 182/77. Lungs: Basal crackles. Heart: S1, S2. Regular. Abdomen: Soft, nontender. Bowel sounds positive. Extremities: Right BKA. Laboratory Data: WBC 7.1, hemoglobin 7.9, platelets 329. Chemistry shows sodium 132, potassium 4.4, chloride 98, bicarb 27, BUN 22, creatinine 1.2, glucose 173. Micro data shows MRSA Enterobacter and xanthomonas. Medications: Current antibiotic includes Bactrim DS one tab p.o. b.i.d. Assessment And Plan: Status post right below-knee amputation for necrotic ulcers and gangrenous mckinnon ges to the right foot. The patient is doing well. We recommend to monitor kidney function as the pa tient is on Bactrim. We will follow the patient closely. NF/MODL Voice ID: [id number] Report ID: [id number]
[2018-04-04] MEDS: INSULIN GLARGINE 100 UNITS/ML SQ SCH (21:23)
[2018-04-04] MEDS: ATORVASTATIN 80 MG TAB PO SCH (21:24)
[2018-04-05] MEDS: HYDRALAZINE HCL 20 MG/ML VIAL IV PRN (00:29)
--- NOTE | 2018-04-05 02:42 | PN ---
The patient is doing better. He is more involved in physical therapy. However, his transfer to reha b floor has been rejected by his insurance. I spoke to the [id number] on the floor to have alte rnate plans of alf facility if that is not possible. The patient will be discharged to [facility] with home health care. ZAIRA/IVORY Voice ID: [id number] Report ID: [id number]
[2018-04-05] MEDS: ALBUTEROL 2.5 MG/3 ML NEB SOL NEB PRN ×3 (03:40→19:51)
[2018-04-05] MEDS: IPRATROPIUM BROM 0.5MG/2.5ML NEB PRN ×3 (03:41→19:51)
[2018-04-05] MEDS: INSULIN -REGULAR HUMAN 50 UNIT/0.5 ML ML SQ SCH ×4 (07:30→21:00)
[2018-04-05] MEDS: ARFORMOTEROL TARTRATE 15 MCG/2 ML VIAL.NEB NEB SCH ×2 (07:52→19:50)
[2018-04-05] MEDS: PROMOD 30 ML DOSE PO SCH ×2 (09:00→21:08)
[2018-04-05] MEDS: LOSARTAN POTASSIUM 50 MG TABLET PO SCH (09:00)
[2018-04-05] MEDS: SOTALOL HCL 80 MG TAB PO SCH ×2 (09:01→20:57)
[2018-04-05] MEDS: SERTRALINE HCL 100 MG TAB PO SCH (09:01)
[2018-04-05] MEDS: APIXABAN 5 MG TABLET PO SCH ×2 (09:01→20:58)
[2018-04-05] MEDS: FINASTERIDE 5 MG TAB PO SCH (09:02)
[2018-04-05] MEDS: MAGNESIUM OXIDE 400 MG TAB PO SCH (09:02)
[2018-04-05] MEDS: SMZ./TMP. 800/160 MG TABLET PO SCH ×2 (09:02→20:57)
[2018-04-05] MEDS: ISOSORBIDE MONO 10 MG TAB PO SCH (09:02)
[2018-04-05] MEDS: FERROUS GLUCONATE 300 MG TAB PO SCH (09:02)
[2018-04-05] MEDS: ISOSORBIDE MONO SR 60 MG TAB PO SCH (09:02)
[2018-04-05] MEDS: PANTOPRAZOLE 40MG TABLET PO SCH (09:03)
[2018-04-05] MEDS: MUPIROCIN 2% OINT 22GM TUBE TOP SCH (09:03)
[2018-04-05] MEDS: HYDROCODONE/APAP 5/325 MG TAB PO PRN (17:34)
[2018-04-05] MEDS: ATORVASTATIN 80 MG TAB PO SCH (20:58)
[2018-04-05] MEDS ORDERED: VANCOMYCIN 2.75 GM in NA CHLORIDE 0.9% 500 ML IVPB ONE (21:00)
[2018-04-05] MEDS: INSULIN GLARGINE 100 UNITS/ML SQ SCH (21:08)
--- NOTE | 2018-04-06 00:48 | PN ---
As his insurance refused to consider transfer to rehab floor, this was explained to the patient. Als o, discussed with the charge nurse and social services regarding the [facility] facility. As soon as this is arranged, he will be transferred. ZAIRA/IVORY Voice ID: [id number] Report ID: [id number]
[2018-04-06] MEDS: HYDROCODONE/APAP 5/325 MG TAB PO PRN ×2 (01:28→22:06)
[2018-04-06] MEDS: ALBUTEROL 2.5 MG/3 ML NEB SOL NEB PRN ×2 (02:56→09:10)
[2018-04-06] MEDS: IPRATROPIUM BROM 0.5MG/2.5ML NEB PRN ×2 (02:56→09:10)
[2018-04-06] MEDS: INSULIN -REGULAR HUMAN 50 UNIT/0.5 ML ML SQ SCH ×4 (07:30→21:00)
[2018-04-06] MEDS: PROMOD 30 ML DOSE PO SCH ×2 (08:54→21:00)
[2018-04-06] MEDS: SOTALOL HCL 80 MG TAB PO SCH ×2 (08:54→21:00)
[2018-04-06] MEDS: MAGNESIUM OXIDE 400 MG TAB PO SCH (08:55)
[2018-04-06] MEDS: LOSARTAN POTASSIUM 50 MG TABLET PO SCH (08:56)
[2018-04-06] MEDS: SMZ./TMP. 800/160 MG TABLET PO SCH ×2 (08:56→21:00)
[2018-04-06] MEDS: FERROUS GLUCONATE 300 MG TAB PO SCH (08:56)
[2018-04-06] MEDS: SERTRALINE HCL 100 MG TAB PO SCH (08:56)
[2018-04-06] MEDS: FINASTERIDE 5 MG TAB PO SCH (08:56)
[2018-04-06] MEDS: PANTOPRAZOLE 40MG TABLET PO SCH (08:56)
[2018-04-06] MEDS: APIXABAN 5 MG TABLET PO SCH ×2 (08:56→21:00)
[2018-04-06] MEDS: ISOSORBIDE MONO SR 60 MG TAB PO SCH (08:57)
[2018-04-06] MEDS: ISOSORBIDE MONO 10 MG TAB PO SCH (08:57)
[2018-04-06] MEDS: MUPIROCIN 2% OINT 22GM TUBE TOP SCH (08:57)
[2018-04-06] MEDS: INSULIN GLARGINE 100 UNITS/ML SQ SCH (21:00)
[2018-04-06] MEDS: ATORVASTATIN 80 MG TAB PO SCH (21:00)
--- NOTE | 2018-04-06 21:27 | PN ---
The patient is afebrile. He is fully alert. He has mild wheezing. The patient is ready for transfe r to intermediate. I have been told that this might take place today. ZAIRA/IVORY Voice ID: [id number] Report ID: [id number]
[2018-04-06 21:31] VITALS: O2SAT 98
[2018-04-07] MEDS: ALBUTEROL 2.5 MG/3 ML NEB SOL NEB PRN ×2 (01:55→08:12)
[2018-04-07] MEDS: IPRATROPIUM BROM 0.5MG/2.5ML NEB PRN ×2 (01:55→08:12)
[2018-04-07] MEDS: HYDROCODONE/APAP 5/325 MG TAB PO PRN (04:52)
[2018-04-07] MEDS: INSULIN -REGULAR HUMAN 50 UNIT/0.5 ML ML SQ SCH (07:30)
[2018-04-07] MEDS: MUPIROCIN 2% OINT 22GM TUBE TOP SCH (09:00)
[2018-04-07] MEDS ORDERED: VANCOMYCIN 2 GM in NA CHLORIDE 0.9% 500 ML IVPB SCH (09:00)
[2018-04-07] MEDS: LOSARTAN POTASSIUM 50 MG TABLET PO SCH (09:38)
[2018-04-07] MEDS: ISOSORBIDE MONO 10 MG TAB PO SCH (09:38)
[2018-04-07] MEDS: ISOSORBIDE MONO SR 60 MG TAB PO SCH (09:38)
[2018-04-07] MEDS: MAGNESIUM OXIDE 400 MG TAB PO SCH (09:38)
[2018-04-07] MEDS: FERROUS GLUCONATE 300 MG TAB PO SCH (09:38)
[2018-04-07] MEDS: SERTRALINE HCL 100 MG TAB PO SCH (09:39)
[2018-04-07] MEDS: APIXABAN 5 MG TABLET PO SCH (09:39)
[2018-04-07] MEDS: SOTALOL HCL 80 MG TAB PO SCH (09:39)
[2018-04-07] MEDS: SMZ./TMP. 800/160 MG TABLET PO SCH (09:39)
[2018-04-07] MEDS: PANTOPRAZOLE 40MG TABLET PO SCH (09:39)
[2018-04-07] MEDS: FINASTERIDE 5 MG TAB PO SCH (09:39)
[2018-04-07] MEDS: PROMOD 30 ML DOSE PO SCH (09:40)
[2018-04-07 13:14] VITALS: BP 137/64; TEMP 97.3
== END 2018-04-07 14:10 | DRG 240 ==
LOC: ER 19:54 → ERHOLD 23:32 → 4TH 03-25 00:56
PROVIDERS: ADMIT Internal Medicine; ATTEND Internal Medicine
PROC: 0Y6H0Z1 Detachment at Right Lower Leg, High, Open Approach (ICD-10-PCS; principal; 2018-03-27 12:30)
PROC: 30233N1 Transfusion of Nonautologous Red Blood Cells into Peripheral Vein, Percutaneous Approach (ICD-10-PCS; 2018-04-04)
DX: E11.52 Type 2 diabetes mellitus with diabetic peripheral angiopathy with gangrene (principal); L03.115 Cellulitis of right lower limb; I96 Gangrene, not elsewhere classified; M86.9 Osteomyelitis, unspecified; I13.0 Hypertensive heart and chronic kidney disease with heart failure and stage 1 through stage 4 chronic kidney disease, or unspecified chronic kidney disease; I50.32 Chronic diastolic (congestive) heart failure; K50.90 Crohn's disease, unspecified, without complications; J44.1 Chronic obstructive pulmonary disease with (acute) exacerbation; E11.621 Type 2 diabetes mellitus with foot ulcer; L97.519 Non-pressure chronic ulcer of other part of right foot with unspecified severity; E11.69 Type 2 diabetes mellitus with other specified complication; I48.2 Chronic atrial fibrillation; E11.65 Type 2 diabetes mellitus with hyperglycemia; E11.22 Type 2 diabetes mellitus with diabetic chronic kidney disease; N18.3 Chronic kidney disease, stage 3 (moderate); D63.1 Anemia in chronic kidney disease; E78.5 Hyperlipidemia, unspecified; B95.62 Methicillin resistant Staphylococcus aureus infection as the cause of diseases classified elsewhere; B96.89 Other specified bacterial agents as the cause of diseases classified elsewhere; I25.10 Atherosclerotic heart disease of native coronary artery without angina pectoris; E11.40 Type 2 diabetes mellitus with diabetic neuropathy, unspecified; F41.9 Anxiety disorder, unspecified; F32.9 Major depressive disorder, single episode, unspecified; E66.9 Obesity, unspecified; Z95.5 Presence of coronary angioplasty implant and graft; Z79.01 Long term (current) use of anticoagulants; Z79.82 Long term (current) use of aspirin; Z79.4 Long term (current) use of insulin; Z68.31 Body mass index [BMI] 31.0-31.9, adult; Z87.891 Personal history of nicotine dependence
CPT/HCPCS: 36415; 71045; 80048; 80076; 80202; 81003; 82962; 83605; 83735; 84100; 84145; 84484; 85014; 85018; 85025; 85610; 85652; 85730; 86140; 86850; 86900; 86901; 87040; 87070; 87077; 87186; 87205; 88307; 88311; 93005; 94640; 94760; 97163; 99285; J0360; J2250; J2270; J2405; J2543; J3010; J3370; J7030; J7605; P9016

== ENCOUNTER 2018-06-14 21:25 | Inpatient (IN) | payer OTHER ==
--- OUTSIDE RECORDS SUMMARY | 2018-06-14 21:28 | XMS REPORT | Clinical Summary ---
:1945 Author Organization [facility] Address [address] [place] [address] Care Team Providers Name Role Phone Asked, No Pcp Primary Care Provider Unavailable Allergies No Known Allergies Medications Medication Sig Dispensed Refills Start Date End Date Status aspirin (ECOTRIN) 81 Take 81 mg by mouth 0 Active MG enteric coated daily. tablet budesonide EC Take 6 mg by mouth 0 Active (ENTOCORT EC) 3 mg 24 every morning. hr capsule cyanocobalamin 1000 Take 1,000 mcg by 0 Active MCG tablet mouth daily. ferrous gluconate Take 324 mg by 0 Active (FERGON) 324 MG mouth 2 (two) times tablet a day. finasteride (PROSCAR) Take 5 mg by mouth 0 Active 5 mg tablet daily. gabapentin Take 100 mg by 0 Active (NEURONTIN) 100 MG mouth 3 (three) capsule times a day. insulin detemir Inject 50 Units 0 Active (LEVEMIR) 100 unit/mL under the skin injection daily with breakfast. ipratropium Take 500 mcg by 0 Active (ATROVENT) 0.02 % nebulization 4 nebulizer solution (four) times a day. isosorbide Take 60 mg by mouth 0 Active mononitrate (IMDUR) daily. 60 MG 24 hr tablet losartan (COZAAR) 100 Take 100 mg by 0 Active MG tablet mouth daily. metoprolol succinate Take 50 mg by mouth 0 Active XL (TOPROL-XL) 50 MG daily. 24 hr tablet pantoprazole Take 40 mg by mouth 0 Active (PROTONIX) 40 MG EC daily. tablet potassium chloride Take 40 mEq by 0 Active (KLOR-CON) 20 mEq mouth 2 (two) times packet a day. sertraline (ZOLOFT) Take 150 mg by 0 Active 100 MG tablet mouth daily. simvastatin (ZOCOR) Take 40 mg by mouth 0 Active 40 MG tablet nightly. terazosin (HYTRIN) 1 Take 1 mg by mouth 0 Active MG capsule nightly. Active Problems Problem Noted Date Cardiac arrhythmia 05/24/2016 Family History Medical History Relation Name Comments Diabetes Father Hypertension Father Relation Name Status Comments Father Social History Tobacco Use Types Packs/Day Years Used Date Former Smoker Alcohol Use Drinks/Week oz/Week Comments No Sex Assigned at Date Recorded Not on file Job Start Date Occupation Industry Not on file Not on file Not on file Travel History Travel Start Travel End No recent travel history available. Last Filed Vital Signs Not on file Plan of Treatment Not on file Results Not on fileafter 06/13/2017 Insurance Payer Benefit Plan / Group Subscriber ID Type Phone Address [place] [facility] xxxxxxxxx HMO Advance Directives Patient has advance care planning documents, and code status on file. For more information, please contact:Ari Hernandez[address] [place] [address] Code Status Date Activated Date Inactivated Comments Full Code 05/24/2016 9:28 PM 05/26/2016 4:41 PM Code Status decision reached by: Patient
--- NOTE | 2018-06-14 22:02 | RAD REPORT ---
EXAM DESCRIPTION: RAD - Chest Single View - 06/14/2018 9:52 pm CLINICAL HISTORY: SOB Chest pain. COMPARISON: Chest Single View dated 03/24/2018; Chest Single View dated 03/13/2018; Chest Single View dated 02/13/2018; Chest Single View dated 01/11/2018 FINDINGS: Portable technique limits examination quality. The lungs are grossly clear. The heart is normal in size. No displaced fractures. IMPRESSION: No acute intrathoracic process suspected.
--- NOTE | 2018-06-14 22:02 | EDPHYS ---
Physician Documentation [facility] Name: Jethro Burden Age: 73 yrs Sex: Male : 1945 Arrival Date: 06/14/2018 Time: 21:29 Bed 4 Private MD: ED Physician Serge Guallpa HPI: 06/14 21:53 This 73 yrs old Male presents to ER via EMS with complaints of Shortness Of colin Breath. 21:53 The patient has shortness of breath at rest, with light activity. Onset: The colin symptoms/episode began/occurred 3 day(s) ago. Duration: The symptoms are continuous, and are steadily getting worse. The patient's shortness of breath is aggravated by coughing, light activity, supine position, talking. Associated signs and symptoms: Pertinent positives: non-productive cough. Severity of symptoms: At their worst the symptoms were moderate in the emergency department the symptoms are unchanged. The patient has experienced similar episodes in the past, several times. Historical: - Allergies: 21:37 NKDA; aa1 - Home Meds: 21:37 albuterol sulfate 2.5 mg /3 mL (0.083 %) Inhl nebu 3 mL Q4H prn [Active]; apixaban 5 mg aa1 Oral 1 tab 2 times per day [Active]; aspirin 81 mg Oral TbEC 1 tab once daily [Active]; atorvastatin 80 mg Oral tab 0.5 tab once daily [Active]; budesonide 3 mg Oral CECX 3 caps once daily [Active]; budesonide-formoterol inhalation 2 puffs 2 times per day [Active]; cyanocobalamin (vitamin B-12) 100 mcg Oral tab daily [Active]; docusate sodium 100 mg Oral cap 1 cap 2 times per day [Active]; ferrous gluconate 324 mg (36 mg iron) Oral tab twice a day [Active]; finasteride 5 mg Oral tab 1 tab once daily [Active]; furosemide 40 mg Oral tab 3 tabs in am and 2 tabs in pm [Active]; gabapentin 100 mg Oral cap 1 caps 3 times per day [Active]; insulin aspart subcutaneous 35 unit before meals [Active]; insulin detemir subcutaneous 70 units in am and 45 units in pm [Active]; ipratropium bromide 0.02 % inhalation soln 2.5 mL every 6 hours [Active]; isosorbide mononitrate 20 mg Oral tab 4 tab daily [Active]; losartan 100 mg Oral tab 1 tab once daily [Active]; magnesium oxide 420 mg Oral tab daily [Active]; metoprolol tartrate 50 mg Oral tab 1 tab once daily [Active]; pantoprazole 40 mg Oral TbEC 1 tab once daily [Active]; potassium chloride 10 mEq Oral cpER 2 caps once daily [Active]; sertraline 100 mg Oral tab 1 tab once daily [Active]; sotalol 120 mg Oral tab 1 tab 2 times per day [Active]; - PMHx: 21:37 Atrial Fib; CHF; COPD; Crohn's; Depression; Diabetes - IDDM; Hyperlipidemia; aa1 Hypertension; prostate problems; - PSHx: 21:37 Heart stents; colon resection; Hernia repair; aa1 - Immunization history:: Flu vaccine is not up to date. - Social history:: Smoking status: Patient/guardian denies using tobacco, the patient reports quitting approximately 14 years ago. - Ebola Screening: : Patient denies exposure to infectious person Patient denies travel to an Ebola-affected area in the 21 days before illness onset. ROS: 21:54 Constitutional: Negative for fever, chills, and weight loss, Eyes: Negative for injury, colin pain, redness, and discharge, ENT: Negative for injury, pain, and discharge, Neck: Negative for injury, pain, and swelling, Cardiovascular: Negative for chest pain, palpitations, and edema, Abdomen/GI: Negative for abdominal pain, nausea, vomiting, diarrhea, and constipation, Back: Negative for injury and pain, : Negative for injury, bleeding, discharge, and swelling, MS/Extremity: Negative for injury and deformity, Skin: Negative for injury, rash, and discoloration, Neuro: Negative for headache, weakness, numbness, tingling, and seizure, Psych: Negative for depression, anxiety, suicide ideation, homicidal ideation, and hallucinations, Allergy/Immunology: Negative for hives, rash, and allergies, Endocrine: Negative for neck swelling, polydipsia, polyuria, polyphagia, and marked weight changes, Hematologic/Lymphatic: Negative for swollen nodes, abnormal bleeding, and unusual bruising. 21:54 Respiratory: Positive for cough, shortness of breath, wheezing, inspiratory, expiratory. Exam: 21:54 Constitutional: This is a well developed, well nourished patient who is awake, alert, colin and in no acute distress. Head/Face: Normocephalic, atraumatic. Eyes: Pupils equal round and reactive to light, extra-ocular motions intact. Lids and lashes normal. Conjunctiva and sclera are non-icteric and not injected. Cornea within normal limits. Periorbital areas with no swelling, redness, or edema. ENT: Nares patent. No nasal discharge, no septal abnormalities noted. Tympanic membranes are normal and external auditory canals are clear. Oropharynx with no redness, swelling, or masses, exudates, or evidence of obstruction, uvula midline. Mucous membranes moist. Neck: Trachea midline, no thyromegaly or masses palpated, and no cervical lymphadenopathy. Supple, full range of motion without nuchal rigidity, or vertebral point tenderness. No Meningismus. Chest/axilla: Normal chest wall appearance and motion. Nontender with no deformity. No lesions are appreciated. Cardiovascular: Regular rate and rhythm with a normal S1 and S2. No gallops, murmurs, or rubs. Normal PMI, no JVD. No pulse deficits. Abdomen/GI: Soft, non-tender, with normal bowel sounds. No distension or tympany. No guarding or rebound. No evidence of tenderness throughout. Back: No spinal tenderness. No costovertebral tenderness. Full range of motion. Male : Normal genitalia with no discharge or lesions. Skin: Warm, dry with normal turgor. Normal color with no rashes, no lesions, and no evidence of cellulitis. MS/ Extremity: Pulses equal, no cyanosis. Neurovascular intact. Full, normal range of motion. Neuro: Awake and alert, GCS 15, oriented to person, place, time, and situation. Cranial nerves II-XII grossly intact. Motor strength 5/5 in all extremities. Sensory grossly intact. Cerebellar exam normal. Normal gait. Psych: Awake, alert, with orientation to person, place and time. Behavior, mood, and affect are within normal limits. 21:54 Respiratory: mild respiratory distress is noted, Respirations: normal, Breath sounds: are clear throughout, decreased breath sounds, that are mild, rhonchi, that are mild, that are moderate, stridor, is not appreciated, wheezing: inspiratory expiratory is heard diffusely. Vital Signs: 21:29 BP 165 / 75; Pulse 76; Resp 22; Temp 98.0; Pulse Ox 99% on 3 lpm NC; Weight 102.06 kg; aa1 Height 6 ft. 0 in. (182.88 cm); Pain 7/10; 23:19 BP 143 / 62; Pulse 65; Resp 12; Pulse Ox 100% on 3 lpm NC; cc3 06/15 00:15 BP 151 / 67; Pulse 65; Resp 15 S; Pulse Ox 100% on 3 lpm NC; cc3 06/14 21:29 Body Mass Index 30.52 (102.06 kg, 182.88 cm) [facility] MDM: 06/14 21:36 Patient medically screened. [facility] 22:13 Data reviewed: vital signs, nurses notes, EMS record, lab test result(s), EKG, [facility] radiologic studies, plain films. 06/14 21:35 Order name: Basic Metabolic Panel [facility] 06/14 21:35 Order name: CBC with Diff [facility] 06/14 21:35 Order name: LFT's [facility] 06/14 21:35 Order name: Magnesium [facility] 06/14 21:35 Order name: NT PRO-BNP [facility] 06/14 21:35 Order name: PT-INR [facility] 06/14 21:35 Order name: Troponin (emerg Dept Use Only) [facility] 06/14 21:35 Order name: Lactate [facility] 06/14 21:35 Order name: Procalcitonin [facility] 06/14 21:35 Order name: Blood Culture Adult (2) [facility] 06/14 21:53 Order name: Influenza Screen (a \T\ B) [facility] 06/14 22:18 Order name: Basic Metabolic Panel [facility] 06/14 22:18 Order name: Basic Metabolic Panel [facility] 06/14 22:18 Order name: CBC with Automated Diff [facility] 06/14 21:35 Order name: XRAY Chest (1 view) [facility] 06/14 22:18 Order name: CBC with Automated Diff [facility] 06/14 22:18 Order name: NT PRO-BNP [facility] 06/14 22:18 Order name: NT PRO-BNP [facility] 06/14 22:18 Order name: Troponin I [facility] 06/14 22:18 Order name: Troponin I [facility] 06/14 22:18 Order name: Troponin I [facility] 06/14 22:19 Order name: Chest Single View [facility] 06/14 22:19 Order name: Chest Single View [facility] 06/14 21:35 Order name: EKG; Complete Time: 22:14 [facility] 06/14 21:35 Order name: Cardiac monitoring; Complete Time: 21:35 [facility] 06/14 21:35 Order name: EKG - Nurse/Tech; Complete Time: 22:24 [facility] 06/14 21:35 Order name: IV Saline Lock; Complete Time: 22:36 [facility] 06/14 21:35 Order name: Labs collected and sent; Complete Time: 22:37 [facility] 06/14 21:35 Order name: O2 Per Protocol; Complete Time: 21:35 [facility] 06/14 21:35 Order name: O2 Sat Monitoring; Complete Time: 21:35 [facility] 06/14 22:18 Order name: Heart Healthy [facility] 06/14 22:18 Order name: EKG Electrocardiogram [facility] 06/14 22:18 Order name: EKG Electrocardiogram [facility] 06/14 22:49 Order name: Blood Glucose Level; Complete Time: 22:49 mt Administered Medications: 22:40 Drug: NS 0.9% 1000 ml Route: IV; Rate: 125 ml/hr; Site: left antecubital; 3 06/15 00:20 Follow up: Response: No adverse reaction; IV Status: Infusion continued upon admission [facility] 06/14 22:40 Drug: Albuterol - atroVENT (3:1) (2.5 mg - 0.5 mg) 3 ml Route: Nebulizer; cc3 23:30 Follow up: Response: No adverse reaction cc3 22:41 Drug: SOLU-Medrol 125 mg Route: IVP; Site: left antecubital; cc3 23:00 Follow up: Response: No adverse reaction cc3 22:42 Drug: Pepcid 20 mg Route: IVP; Site: left antecubital; cc3 23:00 Follow up: Response: No adverse reaction cc3 22:45 Drug: levofloxacin 500 mg Volume: 100 ml; Route: IVPB; Infused Over: 60 mins; Site: cc3 left antecubital; 23:50 Follow up: Response: No adverse reaction; IV Status: Completed infusion; IV Intake: cc3 100ml 22:58 Drug: D50W 50 ml Route: IVP; Site: left antecubital; kiel 06/15 00:07 Follow up: Response: No adverse reaction; Blood sugar is elevated cc3 06/14 23:55 Drug: Magnesium Sulfate 1 grams Route: IVPB; Infused Over: 1 hrs; Site: left cc3 antecubital; 06/15 00:20 Follow up: Response: No adverse reaction; IV Status: Infusion continued upon admission cc3 Point of Care Testing: Blood Glucose: 06/14 22:47 Blood Glucose: 49 mg/dL; ak 06/15 00:07 Blood Glucose: 120 mg/dL; cc3 Ranges: Critical Glucose Levels:Adult <50 mg/dl or >400 mg/dl <40 mg/dl or >180 mg/dl Disposition: 06/14/18 22:01 Hospitalization ordered by oCrdell Herrera for Inpatient Admission. Preliminary diagnosis are Chronic obstructive pulmonary disease with (acute) exacerbation, Dyspnea. - Bed requested for Telemetry/MedSurg (Inpatient). - Status is Inpatient Admission. cc3 - Condition is Fair. - Problem is new. - Symptoms have improved. UTI on Admission? No Signatures: Dispatcher [employer] EDNoa Mitchell RN RN kl Kern, Alissa, RN RN aa1 Serge Guallpa MD MD cha Thompson, Moriah mt Antunez, Elena, RN RN ea Cordel, Charlene cc3 Corrections: (The following items were deleted from the chart) 06/14 23:10 22:01 Hospitalization Ordered by Cordell Herrera MD for Inpatient Admission. Preliminary diagnosis is Chronic obstructive pulmonary disease with (acute) exacerbation; Dyspnea. Bed requested for Telemetry/MedSurg (Inpatient). Status is Inpatient Admission. Condition is Fair. Problem is new. Symptoms have improved. UTI on Admission? No. colin 06/15 00:35 06/14 23:10 06/14/2018 22:01 Hospitalization Ordered by Cordell Herrera MD for Inpatient cc3 Admission. Preliminary diagnosis is Chronic obstructive pulmonary disease with (acute) exacerbation; Dyspnea. Bed requested for Telemetry/MedSurg (Inpatient). Status is Inpatient Admission. Condition is Fair. Problem is new. Symptoms have improved. UTI on Admission? No. kl
--- NOTE | 2018-06-14 22:02 | ER ---
Nurse's Notes [facility] Name: Jethro Burden Age: 73 yrs Sex: Male : 1945 Arrival Date: 06/14/2018 Time: 21:29 Bed 4 Private MD: Diagnosis: Chronic obstructive pulmonary disease with (acute) exacerbation;Dyspnea Presentation: 06/14 21:29 Presenting complaint: Patient states: SOB that has become increasingly worse over past aa1 2-3 days. Pt on continuous O2 at home at 3L \T\ is currently satting at 99% on 3L. Reports hx of COPD \T\ CHF. Transition of care: patient was not received from another setting of care. Onset of symptoms was June 12, 2018. Risk Assessment: Do you want to hurt yourself or someone else? Patient reports no desire to harm self or others. Initial Sepsis Screen: Does the patient meet any 2 criteria? RR > 20 per min. No. Patient's initial sepsis screen is negative. Does the patient have a suspected source of infection? Yes: Productive cough/pneumonia. Care prior to arrival: Oxygen administered. via nasal cannula. 21:29 Method Of Arrival: EMS: [facility] aa1 21:29 Acuity: TAN 3 aa1 Triage Assessment: 21:29 General: Appears in no apparent distress. comfortable, Behavior is calm, cooperative, aa1 appropriate for age. 21:30 Respiratory: Reports shortness of breath at rest on exertion since today Onset: The cc3 symptoms/episode began/occurred today, the patient has moderate shortness of breath. Historical: - Allergies: 21:37 NKDA; aa1 - Home Meds: 21:37 albuterol sulfate 2.5 mg /3 mL (0.083 %) Inhl nebu 3 mL Q4H prn [Active]; apixaban 5 mg aa1 Oral 1 tab 2 times per day [Active]; aspirin 81 mg Oral TbEC 1 tab once daily [Active]; atorvastatin 80 mg Oral tab 0.5 tab once daily [Active]; budesonide 3 mg Oral CECX 3 caps once daily [Active]; budesonide-formoterol inhalation 2 puffs 2 times per day [Active]; cyanocobalamin (vitamin B-12) 100 mcg Oral tab daily [Active]; docusate sodium 100 mg Oral cap 1 cap 2 times per day [Active]; ferrous gluconate 324 mg (36 mg iron) Oral tab twice a day [Active]; finasteride 5 mg Oral tab 1 tab once daily [Active]; furosemide 40 mg Oral tab 3 tabs in am and 2 tabs in pm [Active]; gabapentin 100 mg Oral cap 1 caps 3 times per day [Active]; insulin aspart subcutaneous 35 unit before meals [Active]; insulin detemir subcutaneous 70 units in am and 45 units in pm [Active]; ipratropium bromide 0.02 % inhalation soln 2.5 mL every 6 hours [Active]; isosorbide mononitrate 20 mg Oral tab 4 tab daily [Active]; losartan 100 mg Oral tab 1 tab once daily [Active]; magnesium oxide 420 mg Oral tab daily [Active]; metoprolol tartrate 50 mg Oral tab 1 tab once daily [Active]; pantoprazole 40 mg Oral TbEC 1 tab once daily [Active]; potassium chloride 10 mEq Oral cpER 2 caps once daily [Active]; sertraline 100 mg Oral tab 1 tab once daily [Active]; sotalol 120 mg Oral tab 1 tab 2 times per day [Active]; - PMHx: 21:37 Atrial Fib; CHF; COPD; Crohn's; Depression; Diabetes - IDDM; Hyperlipidemia; aa1 Hypertension; prostate problems; - PSHx: 21:37 Heart stents; colon resection; Hernia repair; aa1 - Immunization history:: Flu vaccine is not up to date. - Social history:: Smoking status: Patient/guardian denies using tobacco, the patient reports quitting approximately 14 years ago. - Ebola Screening: : Patient denies exposure to infectious person Patient denies travel to an Ebola-affected area in the 21 days before illness onset. Screenin:30 Abuse screen: Denies threats or abuse. Denies injuries from another. Nutritional cc3 screening: No deficits noted. Tuberculosis screening: No symptoms or risk factors identified. Fall Risk Ambulatory Aid- None/Bed Rest/Nurse Assist (0 pts). Gait- Impaired (20 pts.). Mental Status- Oriented to own ability (0 pts). Assessment: 21:30 General: Appears distressed, uncomfortable, Behavior is cooperative. Pain: Denies pain. cc3 Neuro: Level of Consciousness is awake, alert, obeys commands. Cardiovascular: Patient's skin is warm and dry. Cardiovascular: Rhythm is regular. Respiratory: Airway is patent Respiratory effort is labored. GI: Abdomen is round obese. : No signs and/or symptoms were reported regarding the genitourinary system. EENT: No signs and/or symptoms were reported regarding the EENT system. Derm: Bruising that is generalized bruising on upper limbs. Musculoskeletal: Amputation of right BKA. Circulation, motion, and sensation intact. Range of motion: intact in all extremities. 21:30 Respiratory: Breath sounds with rhonchi bilaterally. Stridor noted Breath sounds with cc3 wheezes bilaterally. 22:15 Reassessment: Patient appears in no apparent distress at this time. Patient and/or cc3 family updated on plan of care and expected duration. Pain level reassessed. Patient is alert, oriented x 3, equal unlabored respirations, skin warm/dry/pink. Patient for admission, awaiting admission orders. 23:10 Reassessment: Patient appears in no apparent distress at this time. Patient and/or cc3 family updated on plan of care and expected duration. Pain level reassessed. Patient is alert, oriented x 3, equal unlabored respirations, skin warm/dry/pink. food offered to the patient. 06/15 00:20 Reassessment: Patient appears in no apparent distress at this time. Patient and/or cc3 family updated on plan of care and expected duration. Pain level reassessed. Patient is alert, oriented x 3, equal unlabored respirations, skin warm/dry/pink. Room available in 208, report handed over to RYLEE Izaguirre for continuity of care and management. 00:30 Reassessment: Patient left ER for admission by stretcher vitally stable escorted by ED cc3 kenneth Green and the patient's . Vital Signs: 06/14 21:29 BP 165 / 75; Pulse 76; Resp 22; Temp 98.0; Pulse Ox 99% on 3 lpm NC; Weight 102.06 kg; aa1 Height 6 ft. 0 in. (182.88 cm); Pain 7/10; 23:19 BP 143 / 62; Pulse 65; Resp 12; Pulse Ox 100% on 3 lpm NC; cc3 06/15 00:15 BP 151 / 67; Pulse 65; Resp 15 S; Pulse Ox 100% on 3 lpm NC; cc3 06/14 21:29 Body Mass Index 30.52 (102.06 kg, 182.88 cm) aa1 ED Course: 06/14 21:29 Patient arrived in ED. am2 21:29 Arm band placed on left wrist. Patient placed in an exam room, on a stretcher, on aa1 oxygen. 21:29 Patient has correct armband on for positive identification. Placed in gown. Bed in low aa1 position. Call light in reach. Side rails up X2. trading manager on. Pulse ox on. NIBP on. 21:29 Oxygen administration via nasal cannula \T\ 3L/min. aa1 21:31 Laurence Dutton is Primary Nurse. cc3 21:33 Triage completed. aa1 21:36 Serge Guallpa MD is Attending Physician. colin 21:47 Laurence Dutton is Primary Nurse. cc3 22:00 Cordell Herrera MD is Hospitalizing Provider. [facility] 22:17 XRAY Chest (1 view) In Process Unspecified. EDMS 22:25 Inserted saline lock: 20 gauge in left antecubital area, using aseptic technique. Blood cc3 collected. 06/15 00:30 No provider procedures requiring assistance completed. Patient admitted, IV remains in cc3 place. Administered Medications: 06/14 22:40 Drug: NS 0.9% 1000 ml Route: IV; Rate: 125 ml/hr; Site: left antecubital; cc3 06/15 00:20 Follow up: Response: No adverse reaction; IV Status: Infusion continued upon admission cc3 06/14 22:40 Drug: Albuterol - atroVENT (3:1) (2.5 mg - 0.5 mg) 3 ml Route: Nebulizer; cc3 23:30 Follow up: Response: No adverse reaction cc3 22:41 Drug: SOLU-Medrol 125 mg Route: IVP; Site: left antecubital; cc3 23:00 Follow up: Response: No adverse reaction cc3 22:42 Drug: Pepcid 20 mg Route: IVP; Site: left antecubital; cc3 23:00 Follow up: Response: No adverse reaction cc3 22:45 Drug: levofloxacin 500 mg Volume: 100 ml; Route: IVPB; Infused Over: 60 mins; Site: cc3 left antecubital; 23:50 Follow up: Response: No adverse reaction; IV Status: Completed infusion; IV Intake: cc3 100ml 22:58 Drug: D50W 50 ml Route: IVP; Site: left antecubital; 06/15 00:07 Follow up: Response: No adverse reaction; Blood sugar is elevated cc3 06/14 23:55 Drug: Magnesium Sulfate 1 grams Route: IVPB; Infused Over: 1 hrs; Site: left cc3 antecubital; 06/15 00:20 Follow up: Response: No adverse reaction; IV Status: Infusion continued upon admission cc3 Point of Care Testing: Blood Glucose: 06/14 22:47 Blood Glucose: 49 mg/dL; va 06/15 00:07 Blood Glucose: 120 mg/dL; cc3 Ranges: Intake: 06/14 23:50 IV: 100ml; Total: 100ml. cc3 Outcome: 22:01 Decision to Hospitalize by Provider. [facility] 06/15 00:20 Admitted to Med/surg accompanied by tech, family with patient, via stretcher, room 208, cc3 with oxygen, with chart, Report called to RYLEE Izaguirre 00:20 Condition: stable cc3 00:20 Instructed on the need for admit, Demonstrated understanding of instructions. 00:35 Patient left the ED. cc3 Signatures: Dispatcher [employer] EDMS Cynthia Brown RN RN aa1 Serge Guallpa MD MD cha Moreno, Amanda am2 Thompson, Moriah mt Antunez, Elena, RN RN ea Cordel, Charlene cc3 Corrections: (The following items were deleted from the chart) 00:10 06/14 23:19 Pulse 65bpm; Resp 12bpm; Pulse Ox 100% 3 lpm Nasal Cannula; cc3 cc3 06/15 00:49 06/14 21:30 Cardiovascular: Rhythm is irregular cc3 cc3 06/15 01:57 06/14 22:15 Reassessment: Patient appears in no apparent distress at this time. Patient cc3 and/or family updated on plan of care and expected duration. Pain level reassessed. Patient is alert, oriented x 3, equal unlabored respirations, skin warm/dry/pink. cc3
[2018-06-14] MEDS ORDERED: ONDANSETRON 4 MG/2 ML VIAL IV PRN (22:08)
[2018-06-14] MEDS ORDERED: ACETAMINOPHEN 500 MG TAB PO PRN (22:08)
[2018-06-14] MEDS ORDERED: GLUCAGON 1 MG/VIAL IM PRN (22:11)
[2018-06-14] MEDS ORDERED: D50W 25 GM/50 ML SYRINGE IV PRN (22:11)
[2018-06-14 22:42] LABS: Absolute Lymphocytes (CBC) 2.2 K/uL (0.7-4.9); Absolute Monocytes 1.3 K/uL (0.1-1.3); Absolute Neutrophil 8.7 K/uL (1.8-8.0); Basophils % 0.6 % (0-1.3); Eosinophils % 4.5 % (0-4.4); Hematocrit 36.2 % (39.6-49.0); Lymphocytes % 17.2 % (15.3-44.8); RBC Red Blood Cell Count 4.18 M/uL (4.33-5.43)
[2018-06-14] MEDS ORDERED: METHYLPREDNISOLONE 125 MG INJ ONE (22:47)
[2018-06-14] MEDS ORDERED: NA CHLORIDE 0.9% 1,000 ML ONE (22:48)
[2018-06-14] MEDS ORDERED: Levofloxacin500mg IV 500 MG/100 ML BAG IV SCH (23:00)
[2018-06-14 23:18] LABS: Protime INR 1.21
[2018-06-14 23:43] LABS: ALT/SGPT 30 U/L (12-78); AST/SGOT 18 U/L (15-37); Albumin 3.3 g/dL (3.4-5.0); Alkaline Phosphatase 159 U/L (45-117); BUN Blood Urea Nitrogen 30 mg/dL (7-18); Bicarbonate 27 mmol/L (21-32); Bilirubin Direct < 0.1 mg/dL (0-0.2); Bilirubin Total 0.2 mg/dL (0.2-1.0); Magnesium 2.2 mg/dL (1.8-2.4); NT PRO-BNP 599 pg/mL (<125); Potassium 4.3 mmol/L (3.5-5.1); Protein, Total 8.2 g/dL (6.4-8.2); Sodium Level 139 mmol/L (136-145); Troponin (Emerg Dept Use Only) < 0.02 ng/mL (0.0-0.045)
[2018-06-14 23:44] LABS: Glucose Level 48 mg/dL (74-106)
[2018-06-15] MEDS: METHYLPREDNISOLONE 40 MG INJ IV SCH ×2 (01:15→09:27)
[2018-06-15 02:34] VITALS: BMI 37.3
[2018-06-15 05:42] LABS: Absolute Lymphocytes (CBC) 0.5 K/uL (0.7-4.9); Absolute Monocytes 0.1 K/uL (0.1-1.3); Basophils % 0.2 % (0-1.3); Eosinophils % 0.1 % (0-4.4); Hematocrit 34.4 % (39.6-49.0); Lymphocytes % 5.4 % (15.3-44.8); MPV 8.4 fL (7.6-11.3); Monocytes % 0.8 % (3.3-12.3); RBC Red Blood Cell Count 3.99 M/uL (4.33-5.43)
[2018-06-15 06:05] LABS: Potassium 5.3 mmol/L (3.5-5.1)
[2018-06-15] MEDS: IPRATROPIUM BROM 0.5MG/2.5ML NEB PRN ×2 (06:35→14:51)
[2018-06-15] MEDS: ALBUTEROL 2.5 MG/3 ML NEB SOL NEB PRN ×2 (06:35→14:51)
[2018-06-15 06:46] LABS: Urine Appearance CLEAR; Urine Bilirubin NEGATIVE (NEG); Urine Blood 1+ (NEG); Urine Color YELLOW; Urine Glucose NEGATIVE (NEG); Urine Protein 1+ (NEG); Urine Urobilinogen 0.2 mg/dL (0.2-1.0); Urine pH 5.5 (5.0-7.0)
[2018-06-15 06:47] LABS: Urine Microscopic Reflex ORDER UMIC
[2018-06-15 06:53] LABS: Urine Bacteria 20-50 /HPF (NONE SEEN); Urine Culture Reflex Order REFLEXED; Urine RBC <5 /HPF (NONE SEEN)
--- NOTE | 2018-06-15 07:05 | EKG ---
Test Date: 2018-06-14 Test Time: 22:19:52 Licensed Bondsman: AYO MEASUREMENT RESULTS: Intervals: Rate: 67 LA: 172 QRSD: 92 QT: 424 QTc: 448 [place]: P: LA: 172 QRS: 71 T: 77 INTERPRETIVE STATEMENTS: Normal sinus rhythm Normal ECG Compared to ECG 03/24/2018 21:46:54 No significant changes Electronically Signed On 06-15-18 07:04:58 ACCESS REPRESENTATIVE by Bertram Welch
[2018-06-15] MEDS ORDERED: INSULIN DETEMIR 70 UNIT SQ SCH (08:00)
[2018-06-15 08:25] LABS: Blood Morphology Comment NOT SEEN (NOT SEEN); Platelet Estimate ADEQ; Urine White Blood Cell Casts OK
--- NOTE | 2018-06-15 08:48 | RAD REPORT ---
EXAM DESCRIPTION: RAD - Chest Single View - 06/15/2018 6:59 am CLINICAL HISTORY: Chest Pain Chest pain. COMPARISON: Chest Single View dated 06/14/2018; Chest Single View dated 03/24/2018; Chest Single View dated 03/13/2018; Chest Single View dated 02/13/2018 FINDINGS: Portable technique limits examination quality. The lungs are grossly clear. The heart is normal in size. No displaced fractures. IMPRESSION: No acute intrathoracic process suspected.
[2018-06-15] MEDS ORDERED: ISOSORBIDE MONONITRATE PO SCH (09:00)
[2018-06-15] MEDS ORDERED: INFLUENZA VACCINE (for 3y+) 0.5 ML DOSE IMVAC ONE (09:00)
[2018-06-15] MEDS: POTASSIUM CL SA 10 MEQ TAB PO SCH (09:00)
[2018-06-15] MEDS: INSULIN GLARGINE 100 UNITS/ML SQ SCH ×2 (09:24→21:30)
[2018-06-15] MEDS: INSULIN -REGULAR HUMAN 50 UNIT/0.5 ML ML SQ SCH ×4 (09:24→21:31)
[2018-06-15] MEDS: SOTALOL HCL 80 MG TAB PO SCH ×2 (09:25→21:36)
[2018-06-15] MEDS: ISOSORBIDE MONO 10 MG TAB PO SCH (09:26)
[2018-06-15] MEDS: METOPROLOL XL 50 MG TAB PO SCH (09:26)
[2018-06-15] MEDS: FINASTERIDE 5 MG TAB PO SCH (09:26)
[2018-06-15] MEDS: ISOSORBIDE MONO SR 60 MG TAB PO SCH (09:27)
[2018-06-15] MEDS: MAGNESIUM OXIDE 400 MG TAB PO SCH (09:27)
[2018-06-15] MEDS: FERROUS GLUCONATE 300 MG TAB PO SCH ×2 (09:27→21:33)
[2018-06-15] MEDS: APIXABAN 5 MG TABLET PO SCH ×2 (09:27→21:33)
[2018-06-15] MEDS: SERTRALINE HCL 100 MG TAB PO SCH (09:27)
[2018-06-15] MEDS: DOCUSATE NA 100 MG CAP PO SCH ×2 (09:27→21:32)
[2018-06-15] MEDS: FAMOTIDINE 20 MG/2 ML VIAL IV SCH ×2 (09:27→21:32)
[2018-06-15] MEDS: ASPIRIN EC 81 MG TAB PO SCH (09:27)
[2018-06-15] MEDS: LOSARTAN POTASSIUM 50 MG TABLET PO SCH (09:27)
--- NOTE | 2018-06-15 13:00 | EKG ---
Test Date: 2018-06-15 Test Time: 07:26:33 Life Enrichment Assistant: LAURA MEASUREMENT RESULTS: Intervals: Rate: 87 ND: 190 QRSD: 90 QT: 390 QTc: 469 [place]: P: -36 ND: 190 QRS: 65 T: 70 INTERPRETIVE STATEMENTS: Unusual P axis, possible ectopic atrial rhythm Abnormal ECG Compared to ECG 06/14/2018 22:19:52 Sinus rhythm no longer present Electronically Signed On 06-15-18 12:59:23 STUDENT ADVISOR by Bertram Welch
[2018-06-15] MEDS: Levofloxacin500mg IV 500 MG/100 ML BAG IV SCH (21:30)
[2018-06-15] MEDS: predniSONE 20 MG TAB PO SCH (21:32)
[2018-06-15] MEDS: ATORVASTATIN 40 MG TAB PO SCH (21:32)
--- NOTE | 2018-06-16 00:38 | HP ---
Date of Admission: 06/14/2018 Chief Complaint: Wheezing, coughing, and dyspnea. History Of Present Illness: A 73-year-old male was brought to the emergency room with dyspnea, wheez ing. He was evaluated and admitted with a diagnosis of COPD exacerbation. The patient denied any hi story of chest pain, fever, chills, rigors. Past Medical History: Positive for type 2 diabetes, peripheral vascular disease, congestive heart fa ilure, COPD, anxiety, and depression. Surgical History: Positive for recent right leg amputation, multiple episodes of infection involving the foot. Other surgical problems include history of coronary angioplasty, hernia repair and colon resection. Family History: Noncontributory. Personal History: Currently he does not smoke. Allergies: HE HAS NO KNOWN ALLERGIES TO MEDICINES. Medications: He has long list of medicines. Please refer to the chart for home medication list. Review of Systems: No chest pain. No fever. No rigors. Physical Examination: General: Revealed a 73-year-old male with audible wheezing. Vital Signs: Temperature normal. HEENT: Congested throat. Abdomen: Pendulous, nontender. EXTREMITIES: Right leg amputation noted. Laboratory: Done in the emergency room; white count was 12.9, hemoglobin 11.8. Chem profile; BUN 30 , creatinine 1.4, blood sugar 48. BNP 599. Troponin normal. Assessment: 1.Acute bronchitis. 2.Chronic obstructive pulmonary disease exacerbation. 3.Type 2 diabetes. 4.Known coronary artery disease and congestive heart failure, status post coronary angioplasty. 5.Hyperlipidemia. 6.Anxiety and depression. 7.Benign prostatic hypertrophy. Plan: IV Levaquin, IV steroids, breathing treatments. Restart home medications. Insulin sliding sc derrick. ZAIRA/IVORY Voice ID: [id number]
[2018-06-16] MEDS: INSULIN -REGULAR HUMAN 50 UNIT/0.5 ML ML SQ SCH ×4 (07:30→20:30)
[2018-06-16] MEDS: POTASSIUM CL SA 10 MEQ TAB PO SCH (09:00)
[2018-06-16] MEDS: INSULIN GLARGINE 100 UNITS/ML SQ SCH ×2 (09:00→20:29)
[2018-06-16] MEDS: SERTRALINE HCL 100 MG TAB PO SCH (09:54)
[2018-06-16] MEDS: FAMOTIDINE 20 MG/2 ML VIAL IV SCH ×2 (09:54→20:29)
[2018-06-16] MEDS: DOCUSATE NA 100 MG CAP PO SCH ×2 (09:54→20:32)
[2018-06-16] MEDS: ISOSORBIDE MONO SR 60 MG TAB PO SCH (09:54)
[2018-06-16] MEDS: SOTALOL HCL 80 MG TAB PO SCH ×2 (09:55→20:30)
[2018-06-16] MEDS: FINASTERIDE 5 MG TAB PO SCH (09:55)
[2018-06-16] MEDS: METOPROLOL XL 50 MG TAB PO SCH (09:55)
[2018-06-16] MEDS: APIXABAN 5 MG TABLET PO SCH ×2 (09:55→20:33)
[2018-06-16] MEDS: LOSARTAN POTASSIUM 50 MG TABLET PO SCH (09:55)
[2018-06-16] MEDS: FERROUS GLUCONATE 300 MG TAB PO SCH ×2 (09:55→20:32)
[2018-06-16] MEDS: predniSONE 20 MG TAB PO SCH ×2 (09:55→20:33)
[2018-06-16] MEDS: ASPIRIN EC 81 MG TAB PO SCH (09:55)
[2018-06-16] MEDS: MAGNESIUM OXIDE 400 MG TAB PO SCH (09:59)
[2018-06-16] MEDS: ISOSORBIDE MONO 10 MG TAB PO SCH (10:00)
[2018-06-16] MEDS: ALBUTEROL 2.5 MG/3 ML NEB SOL NEB PRN ×2 (10:09→20:45)
[2018-06-16] MEDS: IPRATROPIUM BROM 0.5MG/2.5ML NEB PRN ×2 (10:09→20:46)
--- NOTE | 2018-06-16 14:57 | PN ---
Subjective: The patient has less wheezing today. He still has high sugars probably secondary to rosaline roids. Abdomen is soft. The amputation site does not have any evidence of infection. He will be co ntinued along the same lines and he will be reexamined tomorrow. ZAIRA/IVORY Voice ID: [id number] Report ID: [id number]
[2018-06-16] MEDS: Levofloxacin500mg IV 500 MG/100 ML BAG IV SCH (20:28)
[2018-06-16] MEDS: ATORVASTATIN 40 MG TAB PO SCH (20:32)
[2018-06-17] MEDS: INSULIN -REGULAR HUMAN 50 UNIT/0.5 ML ML SQ SCH ×4 (08:47→21:36)
[2018-06-17] MEDS: INSULIN GLARGINE 100 UNITS/ML SQ SCH ×2 (08:48→21:37)
[2018-06-17] MEDS: FAMOTIDINE 20 MG/2 ML VIAL IV SCH ×2 (08:48→21:51)
[2018-06-17] MEDS: MAGNESIUM OXIDE 400 MG TAB PO SCH (08:49)
[2018-06-17] MEDS: ISOSORBIDE MONO SR 60 MG TAB PO SCH (08:49)
[2018-06-17] MEDS: SERTRALINE HCL 100 MG TAB PO SCH (08:49)
[2018-06-17] MEDS: FINASTERIDE 5 MG TAB PO SCH (08:50)
[2018-06-17] MEDS: DOCUSATE NA 100 MG CAP PO SCH ×2 (08:51→21:39)
[2018-06-17] MEDS: FERROUS GLUCONATE 300 MG TAB PO SCH ×2 (08:51→21:38)
[2018-06-17] MEDS: METOPROLOL XL 50 MG TAB PO SCH (08:53)
[2018-06-17] MEDS: ISOSORBIDE MONO 10 MG TAB PO SCH (08:53)
[2018-06-17] MEDS: LOSARTAN POTASSIUM 50 MG TABLET PO SCH (08:54)
[2018-06-17] MEDS: predniSONE 20 MG TAB PO SCH ×2 (08:54→21:39)
[2018-06-17] MEDS: ALBUTEROL 2.5 MG/3 ML NEB SOL NEB PRN ×2 (08:57→17:13)
[2018-06-17] MEDS: IPRATROPIUM BROM 0.5MG/2.5ML NEB PRN ×2 (08:57→17:13)
[2018-06-17] MEDS: POTASSIUM CL SA 10 MEQ TAB PO SCH (09:00)
[2018-06-17] MEDS: SOTALOL HCL 80 MG TAB PO SCH ×2 (10:29→21:38)
[2018-06-17] MEDS: APIXABAN 5 MG TABLET PO SCH ×2 (10:29→22:05)
[2018-06-17] MEDS: ASPIRIN EC 81 MG TAB PO SCH (10:30)
--- NOTE | 2018-06-17 21:07 | PN ---
Subjective: The patient still has considerable wheezing. In view of this, his discharge will be on hold. He is afebrile. His blood sugars are high. However, he is on steroids. I am hoping that onc e the steroids will come down, his sugars will go down. ZAIRA/IVORY Voice ID: [id number] Report ID: [id number]
[2018-06-17] MEDS: ATORVASTATIN 40 MG TAB PO SCH (21:39)
[2018-06-17] MEDS: Levofloxacin500mg IV 500 MG/100 ML BAG IV SCH (21:51)
[2018-06-18] MEDS: INSULIN -REGULAR HUMAN 50 UNIT/0.5 ML ML SQ SCH ×2 (07:30→12:24)
[2018-06-18] MEDS: INSULIN GLARGINE 100 UNITS/ML SQ SCH (08:54)
[2018-06-18] MEDS: FAMOTIDINE 20 MG/2 ML VIAL IV SCH (08:55)
[2018-06-18] MEDS: METOPROLOL XL 50 MG TAB PO SCH (08:55)
[2018-06-18] MEDS: MAGNESIUM OXIDE 400 MG TAB PO SCH (08:56)
[2018-06-18] MEDS: ISOSORBIDE MONO 10 MG TAB PO SCH (08:56)
[2018-06-18] MEDS: ISOSORBIDE MONO SR 60 MG TAB PO SCH (08:56)
[2018-06-18] MEDS: DOCUSATE NA 100 MG CAP PO SCH (08:56)
[2018-06-18] MEDS: SERTRALINE HCL 100 MG TAB PO SCH (08:57)
[2018-06-18] MEDS: LOSARTAN POTASSIUM 50 MG TABLET PO SCH (08:57)
[2018-06-18] MEDS: FINASTERIDE 5 MG TAB PO SCH (08:58)
[2018-06-18] MEDS: FERROUS GLUCONATE 300 MG TAB PO SCH (08:58)
[2018-06-18] MEDS: predniSONE 20 MG TAB PO SCH (08:58)
[2018-06-18] MEDS: POTASSIUM CL SA 10 MEQ TAB PO SCH (09:00)
[2018-06-18 09:02] VITALS: BP 175/85
[2018-06-18] MEDS: ASPIRIN EC 81 MG TAB PO SCH (10:11)
[2018-06-18] MEDS: APIXABAN 5 MG TABLET PO SCH (10:11)
[2018-06-18] MEDS: SOTALOL HCL 80 MG TAB PO SCH (10:11)
[2018-06-18 11:10] VITALS: TEMP 97
[2018-06-18 13:34] VITALS: O2SAT 94
--- NOTE | 2018-07-08 04:13 | DS ---
Date of Discharge: 06/18/2018 Final Diagnoses: 1.Acute bronchitis. 2.Chronic obstructive pulmonary disease exacerbation from above. 3.Type 2 diabetes. 4.Known coronary artery disease and congestive heart failure. 5.Chronic atrial fibrillation. 6.Hyperlipidemia. 7.Anxiety and depression. Hospital Course: This patient was admitted because of wheezing and coughing through the emergency ro om with a diagnosis of COPD exacerbation. After admission to the hospital, the patient received IV s teroids, IV Levaquin, and breathing treatments. His home medications were restarted including insuli n sliding scale. The patient showed improvement over the next few days with decreased wheezing and s hortness of breath. He was discharged home on 06/18 on oral antibiotic and to have follow up in the office. Laboratory Data: Please refer to the chart. TARIQ Voice ID: [id number] Report ID: [id number]
== END 2018-06-18 12:32 | disposition home health service (06) | DRG 191 ==
LOC: ER 21:25 → ERHOLD 22:24 → 2ND 06-15 00:21
PROVIDERS: ADMIT Internal Medicine; ATTEND Internal Medicine
DX: J44.0 Chronic obstructive pulmonary disease with (acute) lower respiratory infection (principal); I50.32 Chronic diastolic (congestive) heart failure; J20.9 Acute bronchitis, unspecified; J44.1 Chronic obstructive pulmonary disease with (acute) exacerbation; E11.9 Type 2 diabetes mellitus without complications; I25.10 Atherosclerotic heart disease of native coronary artery without angina pectoris; I73.9 Peripheral vascular disease, unspecified; Z89.611 Acquired absence of right leg above knee; F41.8 Other specified anxiety disorders; N40.0 Benign prostatic hyperplasia without lower urinary tract symptoms; Z98.61 Coronary angioplasty status; I11.0 Hypertensive heart disease with heart failure
CPT/HCPCS: 36415; 71045; 80048; 80076; 81003; 81015; 82962; 83605; 83735; 83880; 84132; 84145; 84484; 85025; 85610; 87040; 87086; 87088; 87804; 93005; 94640; 94760; 96365; 96367; 96375; 99285; G0008; J2920; J2930; J7030; J7512; Q2035

== ENCOUNTER 2018-07-04 00:12 | Observation (INO) | payer OTHER ==
--- OUTSIDE RECORDS SUMMARY | 2018-07-04 00:14 | XMS REPORT | Clinical Summary ---
:1945 Author Organization [facility] Address [address] [place] [address] Care Team Providers Name Role Phone Asked, [...] Not on file Results Not on fileafter 07/03/2017 Insurance Payer Benefit Plan / Group Subscriber ID Type Phone Address [facility] xxxxxxxxx HMO Advance Directives Patient has advance care planning documents, and code status on file. For more information, please contact:Ari Hernandez[address] [place] [address] Code Status Date Activated Date Inactivated Comments Full Code 05/24/2016 9:28 PM 05/26/2016 4:41 PM Code Status decision reached by: Patient
[2018-07-04] MEDS ORDERED: Magnesium Sulfate 2gm IVPB 2 G/50 ML BAG IV ONE (01:04)
[2018-07-04] MEDS ORDERED: IPRATROPIUM BROM 0.5MG/2.5ML ONE (01:04)
[2018-07-04] MEDS ORDERED: ALBUTEROL 2.5 MG/3 ML NEB SOL ONE ×2 (01:04→01:12)
[2018-07-04 01:25] LABS: Absolute Lymphocytes (CBC) 1.2 K/uL (0.7-4.9); Absolute Monocytes 0.5 K/uL (0.1-1.3); Absolute Neutrophil 5.4 K/uL (1.8-8.0); Eosinophils % 7.7 % (0-4.4); Hematocrit 33.2 % (39.6-49.0); Lymphocytes % 14.9 % (15.3-44.8); MCH 28.9 pg (27.0-35.0); MCV 85.8 fL (80-100); MPV 8.9 fL (7.6-11.3); Monocytes % 6.7 % (3.3-12.3); Protime INR 1.23; RBC Red Blood Cell Count 3.87 M/uL (4.33-5.43)
[2018-07-04 01:38] LABS: ALT/SGPT 28 U/L (12-78); AST/SGOT 18 U/L (15-37); Albumin 2.9 g/dL (3.4-5.0); Alkaline Phosphatase 143 U/L (45-117); BUN Blood Urea Nitrogen 23 mg/dL (7-18); Bicarbonate 31 mmol/L (21-32); Bilirubin Direct < 0.1 mg/dL (0-0.2); Bilirubin Total 0.2 mg/dL (0.2-1.0); Glucose Level 141 mg/dL (74-106); Magnesium 1.8 mg/dL (1.8-2.4); NT PRO-BNP 571 pg/mL (<125); Potassium 4.4 mmol/L (3.5-5.1); Protein, Total 6.9 g/dL (6.4-8.2); Sodium Level 137 mmol/L (136-145); Troponin (Emerg Dept Use Only) < 0.02 ng/mL (0.0-0.045)
--- NOTE | 2018-07-04 02:58 | ER ---
Nurse's Notes [facility] Name: Jethro Burden Age: 73 yrs Sex: Male : 1945 Arrival Date: 07/04/2018 Time: 00:27 Bed 6 Private MD: Diagnosis: Acute Dyspnea;Acute COPD Exacerbation Presentation: 07/04 00:27 Presenting complaint: EMS states: they were called out for a lift assist on arrival pt bb was feeling weak and was having difficulty breathing. Transition of care: patient was not received from another setting of care. Onset of symptoms was July 04, 2018. Risk Assessment: Do you want to hurt yourself or someone else? Patient reports no desire to harm self or others. Initial Sepsis Screen: Does the patient meet any 2 criteria? No. Patient's initial sepsis screen is negative. Does the patient have a suspected source of infection? No. Patient's initial sepsis screen is negative. Care prior to arrival: None. 00:27 Method Of Arrival: EMS: [facility] bb 00:27 Acuity: TAN 3 bb Triage Assessment: 00:33 General: Appears in no apparent distress. uncomfortable, Behavior is calm, cooperative. bb Pain: Denies pain. Neuro: Level of Consciousness is awake, alert, obeys commands, Oriented to person, place, time, situation. Cardiovascular: Heart tones S1 S2 present Capillary refill < 3 seconds Patient's skin is warm and dry. Cardiovascular: Rhythm is sinus rhythm. Respiratory: Reports shortness of breath Respiratory effort is labored, Respiratory pattern is regular, Breath sounds with wheezes bilaterally. Onset: The symptoms/episode began/occurred today, the patient has mild shortness of breath. GI: No signs and/or symptoms were reported involving the gastrointestinal system. Derm: Skin is pink, warm \T\ dry. Musculoskeletal: Amputation of right leg. Historical: - Allergies: 00:33 NKDA; bb - Home Meds: 00:33 Albuterol Inhl [Active]; albuterol sulfate 2.5 mg /3 mL (0.083 %) Inhl nebu 3 mL Q4H bb prn [Active]; apixaban 5 mg Oral 1 tab 2 times per day [Active]; aspirin 81 mg Oral TbEC 1 tab once daily [Active]; atorvastatin 80 mg Oral tab 0.5 tab once daily [Active]; budesonide 3 mg Oral CECX 3 caps once daily [Active]; budesonide-formoterol inhalation 2 puffs 2 times per day [Active]; cyanocobalamin (vitamin B-12) 100 mcg Oral tab daily [Active]; docusate sodium 100 mg Oral cap 1 cap 2 times per day [Active]; ferrous gluconate 324 mg (36 mg iron) Oral tab twice a day [Active]; finasteride 5 mg Oral tab 1 tab once daily [Active]; furosemide 40 mg Oral tab 3 tabs in am and 2 tabs in pm [Active]; gabapentin 100 mg Oral cap 1 caps 3 times per day [Active]; insulin aspart subcutaneous 35 unit before meals [Active]; insulin detemir subcutaneous 70 units in am and 45 units in pm [Active]; ipratropium bromide 0.02 % inhalation soln 2.5 mL every 6 hours [Active]; isosorbide mononitrate 20 mg Oral tab 4 tab daily [Active]; losartan 100 mg Oral tab 1 tab once daily [Active]; magnesium oxide 420 mg Oral tab daily [Active]; metoprolol tartrate 50 mg Oral tab 1 tab once daily [Active]; pantoprazole 40 mg Oral TbEC 1 tab once daily [Active]; potassium chloride 10 mEq Oral cpER 2 caps once daily [Active]; sertraline 100 mg Oral tab 1 tab once daily [Active]; sotalol 120 mg Oral tab 1 tab 2 times per day [Active]; - PMHx: 00:33 Atrial Fib; CHF; COPD; Crohn's; Depression; Diabetes - IDDM; Hyperlipidemia; bb Hypertension; prostate problems; - PSHx: 00:33 Heart stents; colon resection; Hernia repair; right lower extremity amputation; bb - Immunization history:: Adult Immunizations up to date. - Social history:: Smoking status: Patient/guardian denies using tobacco, the patient reports quitting approximately 15 years ago, Patient/guardian denies using alcohol, street drugs. - Ebola Screening: : No symptoms or risks identified at this time. - Family history:: not pertinent. - Hospitalizations: : No recent hospitalization is reported. Screenin:38 Abuse screen: Denies threats or abuse. Nutritional screening: No deficits noted. bb Tuberculosis screening: No symptoms or risk factors identified. Fall Risk Secondary diagnosis (15 points) IV access (20 points). Gait- Weak (10 pts.). Mental Status- Oriented to own ability (0 pts). Total Strong Fall Scale indicates High Risk Score (45 or more points). Fall prevention measures have been instituted. Side Rails Up X 2 As available patient and family educated on Fall Prevention Program and Strategies. Assessment: 00:38 Reassessment: No changes from previously documented assessment. see triage assessment. bb 01:30 Reassessment: Patient and/or family updated on plan of care and expected duration. Pain bb level reassessed. pt resting quietly receiving breathing tx, family at bedside. 02:12 Reassessment: pt returned from CT via wheelchair assisted to bed, pt is A\T\O x 4, resp bb less labored receiving neb tx, spouse at bedside. 03:23 Reassessment: pt appears to be sleeping, eyes closed, resp unlabored, IV site intact, bb spouse at bedside, awaiting room assignment. 03:25 Respiratory: Airway is patent Respiratory effort is even, unlabored. bb 03:57 Reassessment: Patient is alert, oriented x 3, equal unlabored respirations, skin tl1 warm/dry/pink. Patient states feeling better. Patient states symptoms have improved. Cardiovascular: Denies chest pain. Vital Signs: 00:33 BP 149 / 60; Pulse 70; Resp 18 S; Temp 97.7(O); Pulse Ox 99% on R/A; Weight 104.33 kg bb (R); Height 6 ft. 0 in. (182.88 cm) (R); Pain 0/10; 01:06 BP 153 / 70; Pulse 66; Resp 15; Pulse Ox 100% on Nebulizer Mask; Pain 0/10; tl1 01:31 BP 154 / 65; Pulse 64; Resp 14 S; Pulse Ox 100% on 8% Nebulizer Mask; bb 02:12 BP 148 / 60; Pulse 68; Resp 18 S; Pulse Ox 100% on Nebulizer Mask; bb 03:24 BP 154 / 60; Pulse 64; Resp 16 S; Pulse Ox 100% on 3 lpm NC; bb 03:38 BP 168 / 66; Pulse 65; Resp 15; Pulse Ox 97% on 2 lpm NC; Pain 0/10; tl1 04:18 Temp 97.8(TE); tl1 00:33 Body Mass Index 31.19 (104.33 kg, 182.88 cm) bb ED Course: 00:27 Patient arrived in ED. bb 00:28 Triage completed. bb 00:30 Donald Moreira MD is Attending Physician. wa 00:33 Arm band placed on Patient placed in an exam room, on a stretcher, on athletic monitor, bb on pulse oximetry. EKG completed in triage. Results shown to MD. 00:38 Patient has correct armband on for positive identification. Placed in gown. Bed in low bb position. Call light in reach. Side rails up X2. campus monitor on. Pulse ox on. NIBP on. 00:38 Inserted saline lock: 20 gauge in left hand, using aseptic technique. ,using aseptic bb technique. by Lisa MCKEE Blood collected. 01:53 Patient moved to radiology via wheelchair. kw 01:56 X-ray completed. Patient tolerated procedure well. kw 01:56 Patient moved back from radiology. kw 01:57 XRAY Chest Pa And Lat (2 Views) In Process Unspecified. EDMS 02:57 Cordell Herrera MD is Hospitalizing Provider. wa 03:26 No provider procedures requiring assistance completed. Patient admitted, IV remains in bb place. 03:38 Lisa Veloz, RN is Primary Nurse. tl1 Administered Medications: 01:01 Drug: Magnesium Sulfate 2 grams Route: IVPB; Infused Over: 1 hrs; Site: left hand; tl1 03:00 Follow up: IV Status: Completed infusion; IV Intake: 100ml bb 01:02 Drug: AtroVENT Aerosol 0.5 mg Route: Inhalation; tl1 01:02 Drug: Albuterol 2.5 mg Route: Inhalation; tl1 Intake: 03:00 IV: 100ml; Total: 100ml. bb Outcome: 02:58 Decision to Hospitalize by Provider. wa 03:26 Condition: stable bb 03:26 Instructed on the need for admit. 04:19 Admitted to Tele accompanied by nurse, via stretcher, with oxygen, with chart, Report tl1 called to Kiley MCKEE 04:19 Condition: stable 04:19 Instructed on the need for admit. 04:40 Patient left the ED. bb Signatures: Dispatcher [employer] EDMS Chanell Saldaña RN RN bb Paulette Wilkinson Lisa Veloz, RYLEE RN tl1 Donald Moreira MD MD wa Corrections: (The following items were deleted from the chart) 02:14 02:12 BP 148 / 60; Pulse 68bpm; Resp 18bpm; Spontaneous; bb bb
--- NOTE | 2018-07-04 02:59 | EDPHYS ---
Physician Documentation [facility] Name: Jethro Burden Age: 73 yrs Sex: Male : 1945 Arrival Date: 07/04/2018 Time: 00:27 Bed 6 Private MD: ED Physician Donald Moreira HPI: 07/04 02:48 This 73 yrs old Male presents to ER via EMS with complaints of Breathing wa Difficulty. 02:48 The patient has shortness of breath at rest, with light activity. Onset: The wa symptoms/episode began/occurred 3 day(s) ago. Duration: The symptoms are continuous, and are steadily getting worse. The patient's shortness of breath is aggravated by exertion, is alleviated by nothing. Associated signs and symptoms: Pertinent positives: non-productive cough, Pertinent negatives: fever, loss of consciousness, vomiting. Severity of symptoms: At their worst the symptoms were moderate in the emergency department the symptoms are worse moderately. The patient has experienced similar episodes in the past, several times, h/o COPD. The patient has not recently seen a physician. PCP is Dr. Herrera. Historical: - Allergies: 00:33 NKDA; bb - Home Meds: 00:33 Albuterol Inhl [Active]; albuterol sulfate 2.5 mg /3 mL (0.083 %) Inhl nebu 3 mL Q4H bb prn [Active]; apixaban 5 mg Oral 1 tab 2 times per day [Active]; aspirin 81 mg Oral TbEC 1 tab once daily [Active]; atorvastatin 80 mg Oral tab 0.5 tab once daily [Active]; budesonide 3 mg Oral CECX 3 caps once daily [Active]; budesonide-formoterol inhalation 2 puffs 2 times per day [Active]; cyanocobalamin (vitamin B-12) 100 mcg Oral tab daily [Active]; docusate sodium 100 mg Oral cap 1 cap 2 times per day [Active]; ferrous gluconate 324 mg (36 mg iron) Oral tab twice a day [Active]; finasteride 5 mg Oral tab 1 tab once daily [Active]; furosemide 40 mg Oral tab 3 tabs in am and 2 tabs in pm [Active]; gabapentin 100 mg Oral cap 1 caps 3 times per day [Active]; insulin aspart subcutaneous 35 unit before meals [Active]; insulin detemir subcutaneous 70 units in am and 45 units in pm [Active]; ipratropium bromide 0.02 % inhalation soln 2.5 mL every 6 hours [Active]; isosorbide mononitrate 20 mg Oral tab 4 tab daily [Active]; losartan 100 mg Oral tab 1 tab once daily [Active]; magnesium oxide 420 mg Oral tab daily [Active]; metoprolol tartrate 50 mg Oral tab 1 tab once daily [Active]; pantoprazole 40 mg Oral TbEC 1 tab once daily [Active]; potassium chloride 10 mEq Oral cpER 2 caps once daily [Active]; sertraline 100 mg Oral tab 1 tab once daily [Active]; sotalol 120 mg Oral tab 1 tab 2 times per day [Active]; - PMHx: 00:33 Atrial Fib; CHF; COPD; Crohn's; Depression; Diabetes - IDDM; Hyperlipidemia; bb Hypertension; prostate problems; - PSHx: 00:33 Heart stents; colon resection; Hernia repair; right lower extremity amputation; bb - Immunization history:: Adult Immunizations up to date. - Social history:: Smoking status: Patient/guardian denies using tobacco, the patient reports quitting approximately 15 years ago, Patient/guardian denies using alcohol, street drugs. - Ebola Screening: : No symptoms or risks identified at this time. - Family history:: not pertinent. - Hospitalizations: : No recent hospitalization is reported. ROS: 02:50 Constitutional: Negative for fever, chills, and weight loss, Eyes: Negative for injury, wa pain, redness, and discharge, ENT: Negative for injury, pain, and discharge, Neck: Negative for injury, pain, and swelling, Abdomen/GI: Negative for abdominal pain, nausea, vomiting, diarrhea, and constipation, Back: Negative for injury and pain, : Negative for injury, bleeding, discharge, and swelling, MS/Extremity: Negative for injury and deformity, Skin: Negative for injury, rash, and discoloration, Neuro: Negative for headache, weakness, numbness, tingling, and seizure. 02:50 Cardiovascular: Negative for chest pain, edema, orthopnea, palpitations, paroxysmal nocturnal dyspnea. 02:50 Respiratory: Positive for cough, shortness of breath. 02:50 All other systems are negative. Exam: 02:50 Constitutional: This is a well developed, well nourished patient who is awake, alert, wa and in no acute distress. Head/Face: Normocephalic, atraumatic. Eyes: Pupils equal round and reactive to light, extra-ocular motions intact. Lids and lashes normal. Conjunctiva and sclera are non-icteric and not injected. Cornea within normal limits. Periorbital areas with no swelling, redness, or edema. ENT: Nares patent. No nasal discharge, no septal abnormalities noted. Tympanic membranes are normal and external auditory canals are clear. Oropharynx with no redness, swelling, or masses, exudates, or evidence of obstruction, uvula midline. Mucous membranes moist. Neck: Trachea midline, no thyromegaly or masses palpated, and no cervical lymphadenopathy. Supple, full range of motion without nuchal rigidity, or vertebral point tenderness. No Meningismus. Chest/axilla: Normal chest wall appearance and motion. Nontender with no deformity. No lesions are appreciated. Abdomen/GI: Soft, non-tender, with normal bowel sounds. No distension or tympany. No guarding or rebound. No evidence of tenderness throughout. Back: No spinal tenderness. No costovertebral tenderness. Full range of motion. Skin: Warm, dry with normal turgor. Normal color with no rashes, no lesions, and no evidence of cellulitis. MS/ Extremity: Pulses equal, no cyanosis. Neurovascular intact. Full, normal range of motion. Neuro: Awake and alert, GCS 15, oriented to person, place, time, and situation. Cranial nerves II-XII grossly intact. Motor strength 5/5 in all extremities. Sensory grossly intact. Cerebellar exam normal. Normal gait. Psych: Awake, alert, with orientation to person, place and time. Behavior, mood, and affect are within normal limits. 02:50 Cardiovascular: Rate: normal, Rhythm: regular, Pulses: no pulse deficits are appreciated, Heart sounds: normal, Edema: is not appreciated. 02:50 Respiratory: the patient does not display signs of respiratory distress, Respirations: normal, Breath sounds: wheezing: that is moderate, is heard diffusely, Respiratory rate: mild tachypnea Vital Signs: 00:33 BP 149 / 60; Pulse 70; Resp 18 S; Temp 97.7(O); Pulse Ox 99% on R/A; Weight 104.33 kg bb (R); Height 6 ft. 0 in. (182.88 cm) (R); Pain 0/10; 01:06 BP 153 / 70; Pulse 66; Resp 15; Pulse Ox 100% on Nebulizer Mask; Pain 0/10; tl1 01:31 BP 154 / 65; Pulse 64; Resp 14 S; Pulse Ox 100% on 8% Nebulizer Mask; bb 02:12 BP 148 / 60; Pulse 68; Resp 18 S; Pulse Ox 100% on Nebulizer Mask; bb 03:24 BP 154 / 60; Pulse 64; Resp 16 S; Pulse Ox 100% on 3 lpm NC; bb 03:38 BP 168 / 66; Pulse 65; Resp 15; Pulse Ox 97% on 2 lpm NC; Pain 0/10; tl1 04:18 Temp 97.8(TE); tl1 00:33 Body Mass Index 31.19 (104.33 kg, 182.88 cm) bb MDM: 00:30 Patient medically screened. mo 02:51 Differential diagnosis: Bronchitis CHF exacerbation, Chronic Obstructive Pulmonary wa Disease pneumonia, pulmonary edema, reactive airway disease, Unstable Angina. 02:52 Data reviewed: vital signs, nurses notes, lab test result(s), EKG, radiologic studies. mo Test interpretation: by ED physician or midlevel provider: EKG: HR 69. incomplete RBBB. otherwise wnl. 02:53 Test interpretation: by ED physician or midlevel provider: BG 145. . 02:54 Test interpretation: by ED physician or midlevel provider: Anemia. 02:54 Test interpretation: by ED physician or midlevel provider: CXR: noted bullae. blunted L wa CVA. unchanged from previous. Response to treatment: the patient's symptoms have markedly improved after treatment. ED course: improved. however still with significant wheeze on auscultaton. will admit to Dr. herrera. 07/04 00:45 Order name: Blood Culture Adult (2) mo 07/04 00:45 Order name: BMP; Complete Time: 01:59 07/04 00:45 Order name: CBC with Diff; Complete Time: 02:00 07/04 00:45 Order name: Hepatic Function; Complete Time: 02:00 07/04 00:45 Order name: Magnesium; Complete Time: 02:00 07/04 00:45 Order name: NT PRO-BNP; Complete Time: 02:00 07/04 00:45 Order name: PT-INR; Complete Time: 02:00 mo 07/04 00:45 Order name: Troponin (emerg Dept Use Only); Complete Time: 02:00 mo 07/04 03:13 Order name: Basic Metabolic Panel EDMS 07/04 03:13 Order name: Basic Metabolic Panel EDMS 07/04 03:13 Order name: CBC with Automated Diff EDMS 07/04 03:13 Order name: CBC with Automated Diff EDMS 07/04 03:13 Order name: NT PRO-BNP EDMS 07/04 03:13 Order name: NT PRO-BNP EDMS 07/04 00:45 Order name: XRAY Chest Pa And Lat (2 Views) mo 07/04 00:45 Order name: EKG; Complete Time: 00:46 mo 07/04 00:45 Order name: Cardiac monitoring; Complete Time: 01: mo 07/04 00:45 Order name: EKG - Nurse/Tech; Complete Time: 01:02 mo 07/04 00:45 Order name: IV Saline Lock; Complete Time: 01:03 mo 07/04 00:45 Order name: Labs collected and sent; Complete Time: 01:03 mo 07/04 00:45 Order name: O2 Per Protocol; Complete Time: 01:03 mo 07/04 00:45 Order name: O2 Sat Monitoring; Complete Time: 01:03 mo 07/04 03:13 Order name: Troponin I [facility] 07/04 03:13 Order name: Troponin I [facility] 07/04 03:13 Order name: Troponin I [facility] Administered Medications: 01:01 Drug: Magnesium Sulfate 2 grams Route: IVPB; Infused Over: 1 hrs; Site: left hand; tl1 03:00 Follow up: IV Status: Completed infusion; IV Intake: 100ml bb 01:02 Drug: AtroVENT Aerosol 0.5 mg Route: Inhalation; tl1 01:02 Drug: Albuterol 2.5 mg Route: Inhalation; tl1 Disposition: 02:55 Critical Care:. mo Disposition: 07/04/18 02:58 Hospitalization ordered by Cordell Herrera for Observation. Preliminary diagnosis are Acute Dyspnea, Acute COPD Exacerbation. - Bed requested for Telemetry/MedSurg (observation). - Status is Observation. bb - Condition is Stable. - Problem is an acute exacerbation. - Symptoms have improved. UTI on Admission? No Critical care time excluding procedures: 02:55 Critical care time: Bedside Care: 15 minutes, Consultation: 5 minutes, Family wa Intervention: 10 minutes. Total time: 30 minutes Signatures: Dispatcher [employer] Chanell Rivero RN RN bb Lisa Veloz, RN RN tl1 Leighann New RN RN cg Donald Moreira MD MD wa Corrections: (The following items were deleted from the chart) 04:09 02:58 Hospitalization Ordered by Cordell Herrera MD for Observation. Preliminary diagnosis cg is Acute Dyspnea; Acute COPD Exacerbation. Bed requested for Telemetry/MedSurg (observation). Status is Observation. Condition is Stable. Problem is an acute exacerbation. Symptoms have improved. UTI on Admission? No. wa 04:40 04:09 07/04/2018 02:58 Hospitalization Ordered by Cordell Herrera MD for Observation. bb Preliminary diagnosis is Acute Dyspnea; Acute COPD Exacerbation. Bed requested for Telemetry/MedSurg (observation). Status is Observation. Condition is Stable. Problem is an acute exacerbation. Symptoms have improved. UTI on Admission? No. cg
[2018-07-04] MEDS ORDERED: ACETAMINOPHEN 500 MG TAB PO PRN (03:09)
[2018-07-04] MEDS: IPRATROPIUM BROM 0.5MG/2.5ML NEB SCH ×6 (04:00→23:54)
[2018-07-04] MEDS: ALBUTEROL 2.5 MG/3 ML NEB SOL NEB SCH ×6 (04:00→23:55)
--- NOTE | 2018-07-04 06:33 | RAD REPORT ---
EXAM DESCRIPTION: RAD - Chest Pa And Lat (2 Views) - 07/04/2018 2:01 am CLINICAL HISTORY: Difficulty breathing, shortness of breath, COPD history COMPARISON: June 15 TECHNIQUE: PA and lateral views of the chest were obtained. FINDINGS: The lungs are fibrotic with the interstitial pattern similar to comparison imaging. No sana lure or focal lung parenchymal process seen. Left costophrenic angle blunting is stable. Heart size is normal and central vasculature is within normal limits. No pleural effusion or pneu mothorax seen. No acute bony finding noted. No aortic abnormality. IMPRESSION: COPD findings are present and similar to June 15 imaging.
[2018-07-04] MEDS ORDERED: GLUCAGON 1 MG/VIAL IM PRN (07:45)
[2018-07-04] MEDS ORDERED: D50W 25 GM/50 ML SYRINGE IV PRN (07:45)
--- NOTE | 2018-07-04 08:04 | EKG ---
Test Date: 2018-07-04 Test Time: 00:25:16 Director Of Vocational Training: [employer]UM[employer] MEASUREMENT RESULTS: Intervals: Rate: 69 SC: 170 QRSD: 90 QT: 424 QTc: 454 [place]: P: -23 SC: 170 QRS: 68 T: 66 INTERPRETIVE STATEMENTS: Normal sinus rhythm Normal ECG Compared to ECG 06/15/2018 07:26:33 No significant changes Electronically Signed On 07-04-18 08:03:30 FUR REMODELER by Bertram Welch
[2018-07-04] MEDS: HOME MED 1 EA UNK (Budesonide/Formoterol Fumarate [Symbicort 160-4.5 Mcg Inhaler] 2 PUFF) IH SCH ×2 (09:00→20:27)
[2018-07-04] MEDS ORDERED: INFLUENZA VACCINE (for 3y+) 0.5 ML DOSE IMVAC ONE (09:00)
[2018-07-04] MEDS ORDERED: ASPIRIN EC 81 MG TAB PO SCH (09:00)
[2018-07-04] MEDS: INSULIN GLARGINE 100 UNITS/ML SQ SCH ×2 (10:14→20:26)
[2018-07-04] MEDS: FINASTERIDE 5 MG TAB PO SCH (10:16)
[2018-07-04] MEDS: levoFLOXacin 500 MG TAB PO SCH (10:16)
[2018-07-04] MEDS: APIXABAN 5 MG TABLET PO SCH ×2 (10:17→20:24)
[2018-07-04] MEDS: GABAPENTIN 100 MG CAP PO SCH ×3 (10:17→20:23)
[2018-07-04] MEDS: DOCUSATE NA 100 MG CAP PO SCH ×2 (10:18→20:24)
[2018-07-04] MEDS: FUROSEMIDE 40 MG TABLET PO SCH ×2 (10:18→20:24)
[2018-07-04] MEDS: FERROUS GLUCONATE 300 MG TAB PO SCH ×2 (10:18→20:24)
[2018-07-04] MEDS: BUDESONIDE, MICRONIZED 3 MG CAP PO SCH (10:19)
[2018-07-04] MEDS: ISOSORBIDE MONO SR 60 MG TAB PO SCH (10:19)
[2018-07-04] MEDS: INSULIN -REGULAR HUMAN 50 UNIT/0.5 ML ML SQ SCH ×3 (12:45→20:27)
[2018-07-04] MEDS: ATORVASTATIN 40 MG TAB PO SCH (20:23)
[2018-07-05 03:43] LABS: Absolute Monocytes 0.4 K/uL (0.1-1.3); Absolute Neutrophil 5.1 K/uL (1.8-8.0); Basophils % 0.8 % (0-1.3); Eosinophils % 3.8 % (0-4.4); Lymphocytes % 15.2 % (15.3-44.8); MCH 28.6 pg (27.0-35.0); MCV 84.4 fL (80-100); MPV 8.2 fL (7.6-11.3); Monocytes % 6.3 % (3.3-12.3); RBC Red Blood Cell Count 3.67 M/uL (4.33-5.43)
[2018-07-05] MEDS: IPRATROPIUM BROM 0.5MG/2.5ML NEB SCH ×6 (03:50→23:52)
[2018-07-05] MEDS: ALBUTEROL 2.5 MG/3 ML NEB SOL NEB SCH ×6 (03:50→23:52)
--- NOTE | 2018-07-05 05:31 | HP ---
Date of Admission: 07/04/2018 Chief Complaint: Wheezing, coughing, and dyspnea. History Of Present Illness: A 73-year-old male, who is known to have COPD, was seen in the office on the evening of admission. He was found to have evidence of bronchitis. He was given antibiotic, ho wever, he returned to the emergency room because of continued wheezing. Patient had evaluation done and admitted with a diagnosis of COPD exacerbation. Patient denies any history of fever, chills, or rigors. Past Medical History: Extensive includes type 2 diabetes requiring insulin, chronic atrial fibrillat ion, hyperlipidemia, hypertension, peripheral vascular disease with leg amputation, depression, conge stive heart failure. Past Surgical History: Positive for colon resection, coronary angioplasty, leg amputation, hernia re pair. Family History: Noncontributory. Personal History: Nonsmoker. Home Medicines: Please refer to the chart. Review of Systems: No chest pain. Physical Examination: General: Revealed a 73-year-old male, not in distress. HEENT: Congested throat, otherwise negative. Neck: Supple. JVD negative. Chest: Scattered wheezes. Heart: Irregularity noted. Abdomen: Soft. Extremities: Evidence of right leg amputation noted. Laboratory Data: White count normal. Chem profile; random blood sugar of 141, creatinine 1.2, BNP 5 71, troponin normal. Assessment: 1.Chronic obstructive pulmonary disease exacerbation. 2.Acute bronchitis, causing above. 3.Congestive heart failure, compensated. 4.Type 2 diabetes. 5.Hyperlipidemia. 6.Chronic atrial fibrillation. 7.Depression. 8.Status post leg amputation. Plan: The patient is receiving breathing treatment. He is on sliding scale for blood sugars. He wi ll be rechecked in a.m., and if he is stable, he will be discharged with continued oral antibiotics. ZAIRA/IVORY Voice ID: [id number]
[2018-07-05] MEDS: INSULIN -REGULAR HUMAN 50 UNIT/0.5 ML ML SQ SCH ×4 (07:30→20:52)
[2018-07-05] MEDS: HOME MED 1 EA UNK (Budesonide/Formoterol Fumarate [Symbicort 160-4.5 Mcg Inhaler] 2 PUFF) IH SCH ×2 (09:00→20:48)
[2018-07-05] MEDS: ISOSORBIDE MONO SR 60 MG TAB PO SCH (09:31)
[2018-07-05] MEDS: ASPIRIN 81 MG CHEWABLE TABLET PO SCH (09:32)
[2018-07-05] MEDS: APIXABAN 5 MG TABLET PO SCH ×2 (09:32→20:52)
[2018-07-05] MEDS: FINASTERIDE 5 MG TAB PO SCH (09:32)
[2018-07-05] MEDS: FUROSEMIDE 40 MG TABLET PO SCH ×2 (09:32→20:53)
[2018-07-05] MEDS: FERROUS GLUCONATE 300 MG TAB PO SCH ×2 (09:33→20:52)
[2018-07-05] MEDS: DOCUSATE NA 100 MG CAP PO SCH ×2 (09:33→20:54)
[2018-07-05] MEDS: GABAPENTIN 100 MG CAP PO SCH ×3 (09:33→20:54)
[2018-07-05] MEDS: levoFLOXacin 500 MG TAB PO SCH (09:33)
[2018-07-05] MEDS: BUDESONIDE, MICRONIZED 3 MG CAP PO SCH (09:33)
[2018-07-05] MEDS: INSULIN GLARGINE 100 UNITS/ML SQ SCH ×2 (09:34→20:56)
[2018-07-05] MEDS: ATORVASTATIN 40 MG TAB PO SCH (20:53)
[2018-07-06] MEDS: IPRATROPIUM BROM 0.5MG/2.5ML NEB SCH ×2 (03:50→07:45)
[2018-07-06] MEDS: ALBUTEROL 2.5 MG/3 ML NEB SOL NEB SCH ×2 (03:50→07:45)
[2018-07-06 05:52] VITALS: BMI 29.2
[2018-07-06] MEDS: INSULIN -REGULAR HUMAN 50 UNIT/0.5 ML ML SQ SCH (07:30)
[2018-07-06 08:27] VITALS: TEMP 97.4
[2018-07-06] MEDS: APIXABAN 5 MG TABLET PO SCH (08:40)
[2018-07-06] MEDS: DOCUSATE NA 100 MG CAP PO SCH (08:40)
[2018-07-06] MEDS: ASPIRIN 81 MG CHEWABLE TABLET PO SCH (08:40)
[2018-07-06] MEDS: BUDESONIDE, MICRONIZED 3 MG CAP PO SCH (08:41)
[2018-07-06] MEDS: FERROUS GLUCONATE 300 MG TAB PO SCH (08:42)
[2018-07-06] MEDS: ISOSORBIDE MONO SR 60 MG TAB PO SCH (08:42)
[2018-07-06] MEDS: FUROSEMIDE 40 MG TABLET PO SCH (08:43)
[2018-07-06] MEDS: levoFLOXacin 500 MG TAB PO SCH (08:43)
[2018-07-06] MEDS: GABAPENTIN 100 MG CAP PO SCH (08:44)
[2018-07-06] MEDS: FINASTERIDE 5 MG TAB PO SCH (08:44)
[2018-07-06] MEDS: INSULIN GLARGINE 100 UNITS/ML SQ SCH (09:00)
[2018-07-06] MEDS: HOME MED 1 EA UNK (Budesonide/Formoterol Fumarate [Symbicort 160-4.5 Mcg Inhaler] 2 PUFF) IH SCH (09:00)
[2018-07-06 09:19] VITALS: O2SAT 99
[2018-07-06 11:40] VITALS: BP 146/64
== END 2018-07-06 11:13 | disposition home health service (06) ==
LOC: ER 00:12 → ERHOLD 03:07 → 4TH 04:13
PROVIDERS: ADMIT Internal Medicine; ATTEND Internal Medicine
DX: J44.0 Chronic obstructive pulmonary disease with (acute) lower respiratory infection (principal); J20.9 Acute bronchitis, unspecified; J44.1 Chronic obstructive pulmonary disease with (acute) exacerbation; E11.9 Type 2 diabetes mellitus without complications; I48.2 Chronic atrial fibrillation; E78.5 Hyperlipidemia, unspecified; I11.0 Hypertensive heart disease with heart failure; I50.9 Heart failure, unspecified; F32.9 Major depressive disorder, single episode, unspecified; Z89.611 Acquired absence of right leg above knee
CPT/HCPCS: 36415 ×2; 71046; 80048 ×2; 80076; 82962 ×9; 83735; 83880 ×2; 84484 ×3; 85025 ×2; 85610; 87040; 93005; 94640; 94760 ×8; 96365; 96366; 99285; J3475

== ENCOUNTER 2018-07-12 23:03 | Observation (INO) | payer OTHER ==
--- OUTSIDE RECORDS SUMMARY | 2018-07-12 23:05 | XMS REPORT | Clinical Summary ---
:1945 Author Organization [facility] Address [address] [place] [address] Care Team Providers Name Role Phone Asked, [...] Not on file Results Not on fileafter 07/11/2017 Insurance Payer Benefit Plan / Group Subscriber ID Type Phone Address [facility] xxxxxxxxx HMO Advance Directives Patient has advance care planning documents, and code status on file. For more information, please contact:Ari Hernandez[address] [place] [address] Code Status Date Activated Date Inactivated Comments Full Code 05/24/2016 9:28 PM 05/26/2016 4:41 PM Code Status decision reached by: Patient
[2018-07-13 00:30] LABS: Absolute Lymphocytes (CBC) 1.2 K/uL (0.7-4.9); Absolute Monocytes 0.5 K/uL (0.1-1.3); Absolute Neutrophil 6.8 K/uL (1.8-8.0); Basophils % 0.6 % (0-1.3); Eosinophils % 8.4 % (0-4.4); Hematocrit 34.7 % (39.6-49.0); Lymphocytes % 13.2 % (15.3-44.8); MCV 86.2 fL (80-100); MPV 8.6 fL (7.6-11.3); Monocytes % 5.5 % (3.3-12.3); Protime INR 1.28; RBC Red Blood Cell Count 4.03 M/uL (4.33-5.43)
[2018-07-13 00:43] LABS: ALT/SGPT 22 U/L (12-78); AST/SGOT 14 U/L (15-37); Albumin 3.1 g/dL (3.4-5.0); Alkaline Phosphatase 124 U/L (45-117); BUN Blood Urea Nitrogen 40 mg/dL (7-18); Bicarbonate 34 mmol/L (21-32); Bilirubin Direct < 0.1 mg/dL (0-0.2); Bilirubin Total 0.3 mg/dL (0.2-1.0); Glucose Level 156 mg/dL (74-106); Magnesium 2.7 mg/dL (1.8-2.4); NT PRO-BNP 422 pg/mL (<125); Potassium 3.9 mmol/L (3.5-5.1); Protein, Total 7.1 g/dL (6.4-8.2); Sodium Level 139 mmol/L (136-145); Troponin (Emerg Dept Use Only) < 0.02 ng/mL (0.0-0.045)
--- NOTE | 2018-07-13 01:23 | ER ---
Nurse's Notes [facility] Name: Jethro Burden Age: 73 yrs Sex: Male : 1945 Arrival Date: 07/12/2018 Time: 23:05 Bed 18 Private MD: Diagnosis: Chronic obstructive pulmonary disease with (acute) exacerbation Presentation: 07/12 23:09 Presenting complaint: EMS states: "He is having COPD exasperation, when we arrived he jd3 was on his home O2 and wheezing and gasping.". Transition of care: patient was not received from another setting of care. Onset of symptoms was July 12, 2018. Risk Assessment: Do you want to hurt yourself or someone else? Patient reports no desire to harm self or others. Initial Sepsis Screen: Does the patient meet any 2 criteria? RR > 20 per min. No. Patient's initial sepsis screen is negative. Does the patient have a suspected source of infection? No. Patient's initial sepsis screen is negative. Care prior to arrival: Medication(s) given: Albuterol Neb x 1, Atrovent Neb x 2, Normal saline infusion, 1000 mL, 125 mg Solu-Medrol, 2 grams of of Magnesium sulfate. IV initiated. 18 GA, in the right antecubital area. 23:09 Method Of Arrival: EMS: [facility] jd3 23:09 Acuity: TAN 2 jd3 23:09 Care prior to arrival: IV initiated. 20 GA, in the left antecubital area, Med neb jd3 given. Oxygen administered. via a nebulizer mask. Historical: - Allergies: 23:09 NKDA; jd3 - Home Meds: 23:09 Albuterol Inhl [Active]; albuterol sulfate 2.5 mg /3 mL (0.083 %) Inhl nebu 3 mL Q4H jd3 prn [Active]; apixaban 5 mg Oral 1 tab 2 times per day [Active]; aspirin 81 mg Oral TbEC 1 tab once daily [Active]; atorvastatin 80 mg Oral tab 0.5 tab once daily [Active]; budesonide 3 mg Oral CECX 3 caps once daily [Active]; budesonide-formoterol inhalation 2 puffs 2 times per day [Active]; cyanocobalamin (vitamin B-12) 100 mcg Oral tab daily [Active]; docusate sodium 100 mg Oral cap 1 cap 2 times per day [Active]; ferrous gluconate 324 mg (36 mg iron) Oral tab twice a day [Active]; finasteride 5 mg Oral tab 1 tab once daily [Active]; furosemide 40 mg Oral tab 3 tabs in am and 2 tabs in pm [Active]; gabapentin 100 mg Oral cap 1 caps 3 times per day [Active]; insulin aspart subcutaneous 35 unit before meals [Active]; insulin detemir subcutaneous 70 units in am and 45 units in pm [Active]; ipratropium bromide 0.02 % inhalation soln 2.5 mL every 6 hours [Active]; isosorbide mononitrate 20 mg Oral tab 4 tab daily [Active]; losartan 100 mg Oral tab 1 tab once daily [Active]; magnesium oxide 420 mg Oral tab daily [Active]; metoprolol tartrate 50 mg Oral tab 1 tab once daily [Active]; pantoprazole 40 mg Oral TbEC 1 tab once daily [Active]; potassium chloride 10 mEq Oral cpER 2 caps once daily [Active]; sertraline 100 mg Oral tab 1 tab once daily [Active]; sotalol 120 mg Oral tab 1 tab 2 times per day [Active]; - PMHx: 23:09 COPD; Diabetes - IDDM; CHF; Crohn's; Hypertension; Atrial Fib; Hyperlipidemia; prostate jd3 problems; Depression; - PSHx: 23:09 Heart stents; colon resection; Hernia repair; right lower extremity amputation; jd3 - Immunization history:: Adult Immunizations up to date. - Social history:: Smoking status: Patient/guardian denies using tobacco, but has a distant history of tobacco abuse. - Ebola Screening: : Patient negative for fever greater than or equal to 101.5 degrees Fahrenheit, and additional compatible Ebola Virus Disease symptoms. Screenin:16 Abuse screen: Denies threats or abuse. Nutritional screening: No deficits noted. jd3 Tuberculosis screening: No symptoms or risk factors identified. Fall Risk IV access (20 points). Ambulatory Aid- None/Bed Rest/Nurse Assist (0 pts). Gait- Impaired (20 pts.). Mental Status- Oriented to own ability (0 pts). Total Strong Fall Scale indicates Low Risk Score (25-44 pts). Fall prevention measures have been instituted. Side Rails Up X 2 Placed close to Nursing Station Frequent Obs/Assesments occuring Family Present and informed to notify staff if they need to leave bedside. Assessment: 23:16 General: Appears uncomfortable, Behavior is calm, cooperative, appropriate for age. jd3 Pain: Denies pain. Neuro: Level of Consciousness is awake, alert, obeys commands, Oriented to person, place, time, situation, Appropriate for age. Cardiovascular: Heart tones S1 S2 present Capillary refill < 3 seconds Patient's skin is warm and dry. Respiratory: Airway is patent Respiratory effort is labored, shallow, Respiratory pattern is regular, symmetrical, Breath sounds with wheezes bilaterally. GI: Abdomen is round Patient currently denies nausea, vomiting. : No signs and/or symptoms were reported regarding the genitourinary system. EENT: No signs and/or symptoms were reported regarding the EENT system. Derm: Skin is intact, Skin is dry, Skin is normal, Skin temperature is warm. Musculoskeletal: Amputation of right lower leg. Circulation, motion, and sensation intact. 23:55 Reassessment: No changes from previously documented assessment. Patient and/or family jd3 updated on plan of care and expected duration. Pain level reassessed. 07/13 01:14 Reassessment: Patient appears in no apparent distress at this time. Patient and/or mg2 family updated on plan of care and expected duration. Pain level reassessed. Patient is alert, oriented x 3, equal unlabored respirations, skin warm/dry/pink. Vital Signs: 07/12 23:13 BP 135 / 68; Pulse 82; Resp 23 S; Temp 97.7(A); Pulse Ox 99% on Nebulizer Mask; Weight jd3 97.52 kg (R); Height 6 ft. 0 in. (182.88 cm) (R); Pain 0/10; 23:53 BP 152 / 70; Pulse 79; Resp 22 S; Pulse Ox 94% on 2 lpm NC; jd3 07/13 01:14 BP 166 / 73; Pulse 79; Resp 18; Pulse Ox 94% on 2 lpm NC; mg2 07/12 23:13 Body Mass Index 29.16 (97.52 kg, 182.88 cm) jd3 ED Course: 07/12 23:05 Patient arrived in ED. jd3 23:05 Gustavo Garcia NP is PHCP. pm1 23:05 Luis Pagan MD is Attending Physician. pm1 23:05 Gulshan Riley, RN is Primary Nurse. jd3 23:13 Triage completed. jd3 23:14 Arm band placed on. EKG completed in triage. Results shown to MD. jd3 23:18 Patient has correct armband on for positive identification. Placed in gown. Bed in low jd3 position. Call light in reach. Side rails up X2. Adult w/ patient. 23:49 X-ray completed. Portable x-ray completed in exam room. Patient tolerated procedure sg4 well. 23:51 XRAY Chest (1 view) In Process Unspecified. EDMS 07/13 01:15 No provider procedures requiring assistance completed. mg2 01:21 Cordell Herrera MD is Hospitalizing Provider. pm1 01:55 Maintain EMS IV. Dressing intact. Good blood return noted. Site clean \\T\\ dry. Gauge \\T\\ mg 2 site: 20 \\T\\ LAC. 01:56 Patient admitted, IV remains in place. mg2 Administered Medications: No medications were administered Outcome: 01:22 Decision to Hospitalize by Provider. pm1 01:56 Admitted to Tele accompanied by tech, family with patient, via stretcher, room 421, mg2 with oxygen, with chart, Report called to RYLEE Medellin 01:56 Condition: stable 01:56 Instructed on the need for admit. 02:16 Patient left the ED. mg2 Signatures: Dispatcher [employer] EDMS Gustavo Garcia, CLAIRE MARKET DEVELOPMENT MANAGER pm1 Gulshan Riley RN RN jSesar Lee RN RN mg2 Nathalia New sg4 Corrections: (The following items were deleted from the chart) 07/12 23:15 23:09 Care prior to arrival: Medication(s) given: Albuterol Neb x 1, Atrovent Neb x 2, jd3 Normal saline infusion, 1000 mL, 125 mg Solu-Medrol, 2 grams of of Magnesium sulfate. jd3 23:51 23:51 Reassessment: No changes from previously documented assessment. Patient and/or jd3 family updated on plan of care and expected duration. Pain level reassessed. Patient is alert, oriented x 3, equal unlabored respirations, skin warm/dry/pink. jd3 23:55 23:51 Reassessment: No changes from previously documented assessment. Patient and/or jd3 family updated on plan of care and expected duration. Pain level reassessed. jd3
--- NOTE | 2018-07-13 01:23 | EDPHYS ---
Physician Documentation [facility] Name: Jethro Burden Age: 73 yrs Sex: Male : 1945 Arrival Date: 07/12/2018 Time: 23:05 Bed 18 Private MD: ED Physician Luis Pagan HPI: 07/12 23:30 This 73 yrs old Male presents to ER via EMS with complaints of Shortness of pm1 breath. 23:30 The patient has shortness of breath at rest. Onset: The symptoms/episode began/occurred pm1 today. Duration: The symptoms are continuous, and are steadily getting worse. The patient's shortness of breath is aggravated by nothing, is alleviated by nebulizer treatment. Associated signs and symptoms: Pertinent positives: non-productive cough, Pertinent negatives: chest pain, diaphoresis, fever, nausea, vomiting. Severity of symptoms: in the emergency department the symptoms have improved with breathing treatment by EMS. The patient has experienced similar episodes in the past, multiple times, chronically. The patient has been recently been admitted at [facility], was discharged last week, for similar complaints. Patient with complaints of shortness of breath today. On EMS arrival patient with 86% saturation on 3 L. Patient uses 3 L NC at home. patient given magnesium, breathing treatments, and Solu-Medrol in route by EMS. Patient reports some improvement in route. He was discharged on 07/07 for COPD excerebration and was discharged home with Levaquin. Patient took Levaquin this AM. Historical: - Allergies: 23:09 NKDA; jd3 - Home Meds: 23:09 Albuterol Inhl [Active]; albuterol sulfate 2.5 mg /3 mL (0.083 %) Inhl nebu 3 mL Q4H jd3 prn [Active]; apixaban 5 mg Oral 1 tab 2 times per day [Active]; aspirin 81 mg Oral TbEC 1 tab once daily [Active]; atorvastatin 80 mg Oral tab 0.5 tab once daily [Active]; budesonide 3 mg Oral CECX 3 caps once daily [Active]; budesonide-formoterol inhalation 2 puffs 2 times per day [Active]; cyanocobalamin (vitamin B-12) 100 mcg Oral tab daily [Active]; docusate sodium 100 mg Oral cap 1 cap 2 times per day [Active]; ferrous gluconate 324 mg (36 mg iron) Oral tab twice a day [Active]; finasteride 5 mg Oral tab 1 tab once daily [Active]; furosemide 40 mg Oral tab 3 tabs in am and 2 tabs in pm [Active]; gabapentin 100 mg Oral cap 1 caps 3 times per day [Active]; insulin aspart subcutaneous 35 unit before meals [Active]; insulin detemir subcutaneous 70 units in am and 45 units in pm [Active]; ipratropium bromide 0.02 % inhalation soln 2.5 mL every 6 hours [Active]; isosorbide mononitrate 20 mg Oral tab 4 tab daily [Active]; losartan 100 mg Oral tab 1 tab once daily [Active]; magnesium oxide 420 mg Oral tab daily [Active]; metoprolol tartrate 50 mg Oral tab 1 tab once daily [Active]; pantoprazole 40 mg Oral TbEC 1 tab once daily [Active]; potassium chloride 10 mEq Oral cpER 2 caps once daily [Active]; sertraline 100 mg Oral tab 1 tab once daily [Active]; sotalol 120 mg Oral tab 1 tab 2 times per day [Active]; - PMHx: 23:09 COPD; Diabetes - IDDM; CHF; Crohn's; Hypertension; Atrial Fib; Hyperlipidemia; prostate jd3 problems; Depression; - PSHx: 23:09 Heart stents; colon resection; Hernia repair; right lower extremity amputation; jd3 - Immunization history:: Adult Immunizations up to date. - Social history:: Smoking status: Patient/guardian denies using tobacco, but has a distant history of tobacco abuse. - Ebola Screening: : Patient negative for fever greater than or equal to 101.5 degrees Fahrenheit, and additional compatible Ebola Virus Disease symptoms. ROS: 23:30 Constitutional: Negative for fever, chills, and weight loss, Eyes: Negative for injury, pm1 pain, redness, and discharge, ENT: Negative for injury, pain, and discharge, Neck: Negative for injury, pain, and swelling, Cardiovascular: Negative for chest pain, palpitations, and edema. 23:30 Abdomen/GI: Negative for abdominal pain, nausea, vomiting, diarrhea, and constipation, Back: Negative for injury and pain, : Negative for injury, bleeding, discharge, and swelling, MS/Extremity: Negative for injury and deformity, Skin: Negative for injury, rash, and discoloration, Neuro: Negative for headache, weakness, numbness, tingling, and seizure. 23:30 Respiratory: Positive for cough, shortness of breath, Negative for wheezing. Exam: 23:30 Constitutional: This is a well developed, well nourished patient who is awake, alert, pm1 and in no acute distress. Head/Face: Normocephalic, atraumatic. Eyes: Pupils equal round and reactive to light, extra-ocular motions intact. Lids and lashes normal. Conjunctiva and sclera are non-icteric and not injected. Cornea within normal limits. Periorbital areas with no swelling, redness, or edema. ENT: Nares patent. No nasal discharge, no septal abnormalities noted. Tympanic membranes are normal and external auditory canals are clear. Oropharynx with no redness, swelling, or masses, exudates, or evidence of obstruction, uvula midline. Mucous membranes moist. Neck: Trachea midline, no thyromegaly or masses palpated, and no cervical lymphadenopathy. Supple, full range of motion without nuchal rigidity, or vertebral point tenderness. No Meningismus. Chest/axilla: Normal chest wall appearance and motion. Nontender with no deformity. No lesions are appreciated. Cardiovascular: Regular rate and rhythm with a normal S1 and S2. No gallops, murmurs, or rubs. Normal PMI, no JVD. No pulse deficits. 23:30 Abdomen/GI: Soft, non-tender, with normal bowel sounds. No distension or tympany. No guarding or rebound. No evidence of tenderness throughout. Back: No spinal tenderness. No costovertebral tenderness. Full range of motion. Skin: Warm, dry with normal turgor. Normal color with no rashes, no lesions, and no evidence of cellulitis. 23:30 Respiratory: mild respiratory distress is noted, Breath sounds: decreased breath sounds. 23:30 Musculoskeletal/extremity: Extremities: grossly normal except: Right BKA. 23:30 Neuro: Orientation: is normal, Mentation: is normal, Motor: moves all fours. Vital Signs: 23:13 BP 135 / 68; Pulse 82; Resp 23 S; Temp 97.7(A); Pulse Ox 99% on Nebulizer Mask; Weight jd3 97.52 kg (R); Height 6 ft. 0 in. (182.88 cm) (R); Pain 0/10; 23:53 BP 152 / 70; Pulse 79; Resp 22 S; Pulse Ox 94% on 2 lpm NC; jd3 07/13 01:14 BP 166 / 73; Pulse 79; Resp 18; Pulse Ox 94% on 2 lpm NC; mg2 07/12 23:13 Body Mass Index 29.16 (97.52 kg, 182.88 cm) jd3 MDM: 07/12 23:05 Patient medically screened. pm1 07/13 01:19 Data reviewed: vital signs. Data interpreted: Pulse oximetry: on 3L(s) per nasal pm1 canula, is 94 %. Interpretation:. 01:19 Physician consultation: Cordell Herrera MD was called at 01:20, was contacted at 01:20, pm1 regarding admission, patient's condition, and will see patient Admit patient in observation. 01:21 Counseling: I had a detailed discussion with the patient and/or guardian regarding: the pm1 historical points, exam findings, and any diagnostic results supporting the discharge/admit diagnosis, lab results, radiology results, the need for further work-up and treatment in the hospital. 07/12 23:06 Order name: Basic Metabolic Panel; Complete Time: 01:04 pm1 07/12 23:06 Order name: CBC with Diff; Complete Time: 01:05 pm1 07/12 23:06 Order name: LFT's; Complete Time: 01:04 pm1 07/12 23:06 Order name: Magnesium; Complete Time: 01:04 pm1 07/12 23:06 Order name: NT PRO-BNP; Complete Time: 01:04 pm1 07/12 23:06 Order name: PT-INR; Complete Time: 01:05 pm1 07/12 23:06 Order name: Troponin (emerg Dept Use Only); Complete Time: 01:04 pm1 07/12 23:06 Order name: XRAY Chest (1 view) pm1 07/12 23:06 Order name: EKG; Complete Time: 23:07 pm1 07/12 23:06 Order name: Cardiac monitoring; Complete Time: 23:19 pm1 07/12 23:06 Order name: Flu; Complete Time: 00:32 pm1 07/12 23:06 Order name: Blood Culture Adult (2) pm1 07/12 23:06 Order name: ABG pm1 07/13 01:17 Order name: Urine Dipstick--Ancillary (enter results) 07/12 23:06 Order name: EKG - Nurse/Tech; Complete Time: 23:19 pm1 07/12 23:06 Order name: IV Saline Lock; Complete Time: 23:19 pm1 07/12 23:06 Order name: Labs collected and sent; Complete Time: 23:49 pm1 07/12 23:06 Order name: O2 Per Protocol; Complete Time: 23:19 pm1 07/12 23:06 Order name: O2 Sat Monitoring; Complete Time: 23:19 pm1 Administered Medications: No medications were administered Disposition: 04:29 Co-signature as Attending Physician, Luis Pagan MD I agree with the assessment and tw4 plan of care. Disposition: 07/13/18 01:22 Hospitalization ordered by Cordell Herrera for Observation. Preliminary diagnosis is Chronic obstructive pulmonary disease with (acute) exacerbation. - Bed requested for Telemetry/MedSurg (observation). - Status is Observation. mg2 - Condition is Stable. - Problem is new. - Symptoms have improved. UTI on Admission? No Signatures: Dispatcher [employer] EDLeighann Mcdermott RN RN cg Gustavo Garcia, CLAIRE TIN CONTAINER STRAIGHTENER pm1 Gulshan Riley RN RN jd3 Luis Pagan MD MD tw4 Sesar Woodruff RN RN mg2 Corrections: (The following items were deleted from the chart) 01:31 01:22 Hospitalization Ordered by Cordell Herrera MD for Observation. Preliminary diagnosis cg is Chronic obstructive pulmonary disease with (acute) exacerbation. Bed requested for Telemetry/MedSurg (observation). Status is Observation. Condition is Stable. Problem is new. Symptoms have improved. UTI on Admission? No. pm1 02:16 01:31 07/13/2018 01:22 Hospitalization Ordered by Cordell Herrera MD for Observation. mg2 Preliminary diagnosis is Chronic obstructive pulmonary disease with (acute) exacerbation. Bed requested for Telemetry/MedSurg (observation). Status is Observation. Condition is Stable. Problem is new. Symptoms have improved. UTI on Admission? No. cg
[2018-07-13 02:26] LABS: Urine Blood NEGATIVE (NEG); Urine Glucose NEGATIVE (NEG); Urine Protein 1+ (NEG); Urine Specific Gravity 1.015 (1.005-1.030); Urine pH 6.5 (5.0-7.0)
[2018-07-13] MEDS ORDERED: D50W 25 GM/50 ML SYRINGE IV PRN (02:32)
[2018-07-13] MEDS ORDERED: GLUCAGON 1 MG/VIAL IM PRN (02:32)
[2018-07-13] MEDS ORDERED: IPRATROPIUM BROM 0.5MG/2.5ML NEB PRN (02:32)
[2018-07-13] MEDS ORDERED: ACETAMINOPHEN 500 MG TAB PO PRN (02:32)
[2018-07-13] MEDS: INSULIN -REGULAR HUMAN 50 UNIT/0.5 ML ML SQ SCH ×4 (07:30→21:57)
--- NOTE | 2018-07-13 08:06 | RAD REPORT ---
EXAM DESCRIPTION: RAD - Chest Single View - 07/12/2018 11:51 pm CLINICAL HISTORY: Shortness of breath, COPD exacerbation COMPARISON: July 04 TECHNIQUE: AP portable chest image was obtained 2345 hours . FINDINGS: Interstitial fibrotic lung changes are present. Granulomas are seen in the left midlung fi eld. Heart and vasculature are normal. No pneumothorax or large pleural effusion. Left costophrenic a ngle blunting is present. This is believed to be pericardial fat on the left side. No acute bony abno rmality seen. No acute aortic findings suspected. IMPRESSION: Chronic interstitial lung disease similar to comparison. No superimposed failure, infiltrate or mass identifiable.
[2018-07-13] MEDS: ISOSORBIDE MONO SR 60 MG TAB PO SCH (08:28)
[2018-07-13] MEDS: FUROSEMIDE 40 MG TABLET PO SCH ×2 (08:28→21:55)
[2018-07-13] MEDS: PANTOPRAZOLE 40MG TABLET PO SCH (08:29)
[2018-07-13] MEDS: SERTRALINE HCL 100 MG TAB PO SCH (08:29)
[2018-07-13] MEDS: ASPIRIN EC 81 MG TAB PO SCH (08:29)
[2018-07-13] MEDS: DOCUSATE NA 100 MG CAP PO SCH ×2 (08:29→21:53)
[2018-07-13] MEDS: FINASTERIDE 5 MG TAB PO SCH (08:29)
[2018-07-13] MEDS: levoFLOXacin 500 MG TAB PO SCH (08:29)
[2018-07-13] MEDS: GABAPENTIN 100 MG CAP PO SCH ×3 (08:29→21:56)
[2018-07-13] MEDS: POTASSIUM CL SA 10 MEQ TAB PO SCH (08:29)
[2018-07-13] MEDS: METOPROLOL TAR 50 MG TAB PO SCH (08:30)
[2018-07-13] MEDS: FERROUS GLUCONATE 300 MG TAB PO SCH ×2 (08:30→21:54)
[2018-07-13] MEDS: APIXABAN 5 MG TABLET PO SCH ×2 (08:30→21:54)
[2018-07-13] MEDS: LOSARTAN POTASSIUM 50 MG TABLET PO SCH (08:30)
[2018-07-13] MEDS: HOME MED 1 EA UNK (Budesonide/Formoterol Fumarate [Symbicort 160-4.5 Mcg Inhaler] 2 PUFF) IH SCH ×2 (08:32→21:00)
[2018-07-13] MEDS: HOME MED 1 EA UNK (Cyanocobalamin (Vitamin B-12) [Vitamin B-12] 100 MCG) PO SCH (08:32)
[2018-07-13] MEDS: METHYLPREDNISOLONE 40 MG INJ IV SCH ×2 (08:41→15:50)
[2018-07-13] MEDS: MAGNESIUM OXIDE 400 MG TAB PO SCH (08:41)
[2018-07-13] MEDS: INSULIN GLARGINE 100 UNITS/ML SQ SCH ×2 (08:42→21:55)
[2018-07-13] MEDS: INSULIN LISPRO 100 UNIT/1 ML SQ SCH ×3 (08:42→22:01)
--- NOTE | 2018-07-13 09:21 | EKG ---
Test Date: 2018-07-12 Test Time: 23:02:25 Boiler House Mechanic: VIOLA MEASUREMENT RESULTS: Intervals: Rate: 82 MN: 148 QRSD: 94 QT: 412 QTc: 481 Polaris: P: MN: 148 QRS: 72 T: 46 INTERPRETIVE STATEMENTS: Sinus rhythm with premature atrial complexes Septal infarct, age undetermined Abnormal ECG Compared to ECG 07/04/2018 00:25:16 Atrial premature complex(es) now present Myocardial infarct finding now present Electronically Signed On 07-13-18 09:20:37 TIPPLE ENGINEER by Bertram Welch
[2018-07-13] MEDS: ALBUTEROL 2.5 MG/3 ML NEB SOL NEB PRN (09:56)
[2018-07-13 16:11] LABS: Urine Appearance CLEAR; Urine Bilirubin NEGATIVE (NEG); Urine Blood NEGATIVE (NEG); Urine Color YELLOW; Urine Glucose NEGATIVE (NEG); Urine Protein NEGATIVE (NEG); Urine Urobilinogen 0.2 mg/dL (0.2-1.0); Urine pH 6.5 (5.0-7.0)
[2018-07-13 16:22] LABS: Urine Microscopic Reflex NO UMIC
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
[2018-07-13] MEDS: IPRATROPIUM BROM 0.5MG/2.5ML NEB SCH (19:25)
[2018-07-13] MEDS: ARFORMOTEROL TARTRATE 15 MCG/2 ML VIAL.NEB NEB SCH (19:25)
--- NOTE | 2018-07-13 21:34 | HP ---
Date of Admission: 07/13/2018 Chief Complaint: Wheezing. History Of Present Illness: A 73-year-old male who has COPD for many years and who is on oral steroi ds and oral antibiotic at home, was seen in the office the day before admission as a part of recent a dmission for COPD exacerbation. The patient was doing well and he was advised to continue the antibi otic. However, because of increased wheezing, he was brought to the emergency room. The patient ran out of oral steroids 4-5 days before the admission; however, the patient did not tell me about this issue. He has been getting his medicine from [facility] and he claims that the he did not get a [place] pment of his steroids and he has been off steroids for 5 days. Very likely this is what caused his e xacerbation. I spoke to him regarding this particular issue as he was chronically on maintenance rosaline roids, he could not stop abruptly. I told him about possible severe gait decompensation as well as s teroid withdrawal crisis. I told him that he should buy temporary supply of steroids when he cannot get medicine from [facility]. Currently, the patient does not have any chest pain. No history of f ever, chills, or rigors. Chest x-ray in the emergency room did not show any pneumonia. The patient is already on Levaquin at home. Past Medical History: Extensive includes type 2 diabetes; chronic atrial fibrillation; congestive he art failure, compensated; hyperlipidemia; BPH; depression; anxiety; cerebrovascular disease. Past Surgical History: Positive for right leg amputation, hernia repair, colon resection, and wong ry angioplasty. Family History: Diabetes present. Personal History: Currently nonsmoker. Medications: The patient has a long list of medications, please refer to the chart. Review of Systems: The patient denied any fever, chills, or rigors. Physical Examination: General: Revealed a 73-year-old male with [id number] wheezing. Vital Signs: Normal. HEENT: Negative. Neck: Supple. JVD negative. Chest: Scattered wheezes bilaterally. Heart: Irregularity noted. Abdomen: Soft. Extremities: Evidence of amputation noted, otherwise, negative. Imaging: Chest x-ray, no evidence of pneumonia. White count 9.4. Chem profile: BUN 40, creatinine 1.6. BNP 422. Assessment: 1.COPD exacerbation secondary to missed steroid oral doses. 2.COPD. 3.Congestive heart failure, compensated. 4.Chronic atrial fibrillation. 5.Type 2 diabetes, requiring insulin. 6.Status post right leg amputation for osteomyelitis. 7.Peripheral vascular disease. 8.Chronic anxiety and depression. 9.Hyperlipidemia. Plan: The patient is loaded on IV steroids. His oral antibiotic will be continued. Consultation fr Pulmonary Service will be obtained to see if there is anything additional that could be done to th is patient. ZAIRA/IVORY Voice ID: [id number]
[2018-07-13] MEDS: ATORVASTATIN 40 MG TAB PO SCH (21:56)
[2018-07-14] MEDS: METHYLPREDNISOLONE 40 MG INJ IV SCH ×3 (00:28→17:22)
[2018-07-14] MEDS: IPRATROPIUM BROM 0.5MG/2.5ML NEB SCH ×4 (02:00→20:27)
[2018-07-14 07:26] LABS: Absolute Lymphocytes (CBC) 0.6 K/uL (0.7-4.9); Absolute Monocytes 0.2 K/uL (0.1-1.3); Absolute Neutrophil 9.1 K/uL (1.8-8.0); Basophils % 0.2 % (0-1.3); Hematocrit 31.7 % (39.6-49.0); Lymphocytes % 6.4 % (15.3-44.8); MCH 29.1 pg (27.0-35.0); MPV 8.7 fL (7.6-11.3); Monocytes % 1.7 % (3.3-12.3); RBC Red Blood Cell Count 3.73 M/uL (4.33-5.43)
[2018-07-14 07:39] LABS: Potassium 4.1 mmol/L (3.5-5.1)
[2018-07-14] MEDS: ARFORMOTEROL TARTRATE 15 MCG/2 ML VIAL.NEB NEB SCH ×2 (07:50→20:27)
[2018-07-14] MEDS: HOME MED 1 EA UNK (Budesonide/Formoterol Fumarate [Symbicort 160-4.5 Mcg Inhaler] 2 PUFF) IH SCH ×2 (08:25→19:51)
[2018-07-14] MEDS: INSULIN GLARGINE 100 UNITS/ML SQ SCH ×2 (08:27→20:55)
[2018-07-14] MEDS: INSULIN -REGULAR HUMAN 50 UNIT/0.5 ML ML SQ SCH ×4 (08:27→20:56)
[2018-07-14] MEDS: INSULIN LISPRO 100 UNIT/1 ML SQ SCH ×3 (08:28→20:55)
[2018-07-14] MEDS: POTASSIUM CL SA 10 MEQ TAB PO SCH (08:29)
[2018-07-14] MEDS: FUROSEMIDE 40 MG TABLET PO SCH ×2 (08:29→20:58)
[2018-07-14] MEDS: ISOSORBIDE MONO SR 60 MG TAB PO SCH (08:30)
[2018-07-14] MEDS: FINASTERIDE 5 MG TAB PO SCH (08:30)
[2018-07-14] MEDS: GABAPENTIN 100 MG CAP PO SCH ×3 (08:30→20:59)
[2018-07-14] MEDS: MAGNESIUM OXIDE 400 MG TAB PO SCH (08:30)
[2018-07-14] MEDS: LOSARTAN POTASSIUM 50 MG TABLET PO SCH (08:30)
[2018-07-14] MEDS: ASPIRIN EC 81 MG TAB PO SCH (08:31)
[2018-07-14] MEDS: PANTOPRAZOLE 40MG TABLET PO SCH (08:31)
[2018-07-14] MEDS: levoFLOXacin 500 MG TAB PO SCH (08:31)
[2018-07-14] MEDS: FERROUS GLUCONATE 300 MG TAB PO SCH ×2 (08:31→20:59)
[2018-07-14] MEDS: SERTRALINE HCL 100 MG TAB PO SCH (08:31)
[2018-07-14] MEDS: DOCUSATE NA 100 MG CAP PO SCH ×2 (08:32→20:59)
[2018-07-14] MEDS: METOPROLOL TAR 50 MG TAB PO SCH (08:32)
[2018-07-14] MEDS: APIXABAN 5 MG TABLET PO SCH ×2 (08:32→20:59)
[2018-07-14] MEDS: HOME MED 1 EA UNK (Cyanocobalamin (Vitamin B-12) [Vitamin B-12] 100 MCG) PO SCH (08:33)
[2018-07-14 09:23] LABS: Blood Morphology Comment NOT SEEN (NOT SEEN); Platelet Estimate ADEQ; Urine White Blood Cell Casts OK
--- NOTE | 2018-07-14 10:11 | P.PN ---
Subjective Date of Service: 07/14/18 Chief Complaint: Shortness of breath and cough Subjective: Improving (Patient is doing better still complains of a cough) Review of Systems Unremarkable Physical Examination - Vital Signs Temperature: 97.1 F Blood Pressure: 156/77 Pulse: 85 Respirations: 16 Pulse Ox (%): 94 - Physical Exam General: Alert, Oriented x3 Respiratory: Rhonchi/gurgles Cardiovascular: No edema, Regular rate/rhythm, Normal S1 S2 Assessment & Plan - Problems (Diagnosis) (1) COPD exacerbation Onset Date: 03/14/18 Current Visit: No Status: Acute Plan: Patient is 73 years of age admitted with COPD exacerbation no evidence of sepsis cultures negative sputum cultures pending patient can be discharged home I do not think he needs any antibiotics intake prednisone 10 mg twice a day for 7-10 days resume all over his other medications and bronchodilators follow with me in 2-4 weeks
[2018-07-14] MEDS: ATORVASTATIN 40 MG TAB PO SCH (20:59)
[2018-07-15] MEDS: METHYLPREDNISOLONE 40 MG INJ IV SCH ×2 (00:50→08:53)
[2018-07-15] MEDS: IPRATROPIUM BROM 0.5MG/2.5ML NEB SCH ×2 (01:18→07:32)
[2018-07-15] MEDS: ALBUTEROL 2.5 MG/3 ML NEB SOL NEB PRN (03:15)
[2018-07-15 06:16] VITALS: BMI 28.8
[2018-07-15] MEDS: ARFORMOTEROL TARTRATE 15 MCG/2 ML VIAL.NEB NEB SCH (07:32)
[2018-07-15] MEDS: levoFLOXacin 500 MG TAB PO SCH (08:52)
[2018-07-15] MEDS: INSULIN -REGULAR HUMAN 50 UNIT/0.5 ML ML SQ SCH ×2 (08:52→11:54)
[2018-07-15] MEDS: LOSARTAN POTASSIUM 50 MG TABLET PO SCH (08:53)
[2018-07-15] MEDS: DOCUSATE NA 100 MG CAP PO SCH (08:53)
[2018-07-15] MEDS: FINASTERIDE 5 MG TAB PO SCH (08:53)
[2018-07-15] MEDS: ISOSORBIDE MONO SR 60 MG TAB PO SCH (08:53)
[2018-07-15] MEDS: APIXABAN 5 MG TABLET PO SCH (08:53)
[2018-07-15] MEDS: ASPIRIN EC 81 MG TAB PO SCH (08:53)
[2018-07-15] MEDS: METOPROLOL TAR 50 MG TAB PO SCH (08:53)
[2018-07-15] MEDS: POTASSIUM CL SA 10 MEQ TAB PO SCH (08:53)
[2018-07-15] MEDS: MAGNESIUM OXIDE 400 MG TAB PO SCH (08:54)
[2018-07-15] MEDS: PANTOPRAZOLE 40MG TABLET PO SCH (08:54)
[2018-07-15] MEDS: FUROSEMIDE 40 MG TABLET PO SCH (08:54)
[2018-07-15] MEDS: GABAPENTIN 100 MG CAP PO SCH (08:54)
[2018-07-15] MEDS: HOME MED 1 EA UNK (Cyanocobalamin (Vitamin B-12) [Vitamin B-12] 100 MCG) PO SCH (08:55)
[2018-07-15] MEDS: HOME MED 1 EA UNK (Budesonide/Formoterol Fumarate [Symbicort 160-4.5 Mcg Inhaler] 2 PUFF) IH SCH (08:55)
[2018-07-15] MEDS: INSULIN GLARGINE 100 UNITS/ML SQ SCH (08:55)
[2018-07-15] MEDS: INSULIN LISPRO 100 UNIT/1 ML SQ SCH (08:56)
[2018-07-15] MEDS: SERTRALINE HCL 100 MG TAB PO SCH (09:01)
[2018-07-15] MEDS: FERROUS GLUCONATE 300 MG TAB PO SCH (09:08)
[2018-07-15 12:26] VITALS: O2SAT 92
[2018-07-15 12:44] VITALS: BP 148/81; TEMP 98
== END 2018-07-15 13:41 | disposition home or self-care (01) ==
LOC: ER 23:03 → ERHOLD 07-13 01:51 → 4TH 07-13 01:57
PROVIDERS: ADMIT Internal Medicine; ATTEND Internal Medicine
DX: J44.1 Chronic obstructive pulmonary disease with (acute) exacerbation (principal); E11.9 Type 2 diabetes mellitus without complications; I48.2 Chronic atrial fibrillation; I50.9 Heart failure, unspecified; E78.5 Hyperlipidemia, unspecified; N40.0 Benign prostatic hyperplasia without lower urinary tract symptoms; Z86.73 Personal history of transient ischemic attack (TIA), and cerebral infarction without residual deficits; Z98.61 Coronary angioplasty status; F41.8 Other specified anxiety disorders; Z89.511 Acquired absence of right leg below knee
CPT/HCPCS: 36415 ×2; 71045; 80048 ×2; 80076; 81003 ×2; 82962 ×11; 83735; 83880 ×2; 84484 ×3; 85025 ×2; 85610; 87040 ×2; 87070; 87205; 87804 ×2; 93005; 94760 ×2; 99285; G0378 ×2; J2920 ×8; J7605 ×4

== ENCOUNTER 2018-07-25 20:39 | Inpatient (IN) | payer OTHER ==
--- OUTSIDE RECORDS SUMMARY | 2018-07-25 20:41 | XMS REPORT | Clinical Summary ---
:1945 Author Organization [facility] Address [address] [place] [address] Care Team Providers Name Role Phone Asked, [...] Not on file Results Not on fileafter 07/24/2017 Insurance Payer Benefit Plan / Group Subscriber ID Type Phone Address [facility] xxxxxxxxx HMO Advance Directives Patient has advance care planning documents, and code status on file. For more information, please contact:Ari Hernandez[address] [place] [address] Code Status Date Activated Date Inactivated Comments Full Code 05/24/2016 9:28 PM 05/26/2016 4:41 PM Code Status decision reached by: Patient
--- NOTE | 2018-07-25 21:49 | RAD REPORT ---
EXAM DESCRIPTION: RAD - Chest Single View - 07/25/2018 9:34 pm CLINICAL HISTORY: Cough;Dyspnea Chest pain. COMPARISON: Chest Single View dated 07/12/2018; Chest Pa And Lat (2 Views) dated 07/04/2018; Chest Si ngle View dated 06/15/2018; Chest Single View dated 06/14/2018 FINDINGS: Portable technique limits examination quality. The lungs are mildly emphysematous with small calcifications in the left mid lung compatible with shukri cified granulomas. Mild ill-defined opacities are present in the left base medially likely developing pneumonia. The heart is normal in size. No displaced fractures. IMPRESSION: Mild developing pneumonia medial left lung base suspected.
[2018-07-25 22:10] LABS: Absolute Lymphocytes (CBC) 0.9 K/uL (0.7-4.9); Absolute Monocytes 0.9 K/uL (0.1-1.3); Absolute Neutrophil 28.3 K/uL (1.8-8.0); Basophils % 0.4 % (0-1.3); Eosinophils % 0.1 % (0-4.4); MPV 8.7 fL (7.6-11.3); Protime INR 1.2; RBC Red Blood Cell Count 4.19 M/uL (4.33-5.43)
--- NOTE | 2018-07-25 22:17 | EDPHYS ---
Physician Documentation [facility] Name: Jethro Burden Age: 73 yrs Sex: Male : 1945 Arrival Date: 07/25/2018 Time: 20:42 Bed 8 Private MD: ED Physician Serge Guallpa HPI: 07/25 21:50 This 73 yrs old Male presents to ER via Wheelchair with complaints of colin Shortness Of Breath. 21:50 The patient has shortness of breath at rest, with light activity. Onset: The colin symptoms/episode began/occurred 2 day(s) ago. Duration: The symptoms are continuous, and are steadily getting worse. The patient's shortness of breath is aggravated by nothing, coughing. Associated signs and symptoms: Pertinent positives: productive cough. Severity of symptoms: At their worst the symptoms were mild moderate in the emergency department the symptoms are unchanged despite home interventions. The patient has experienced similar episodes in the past, several times. Historical: - Allergies: 21:12 NKDA; jd3 - Home Meds: 21:12 albuterol sulfate 2.5 mg /3 mL (0.083 %) Inhl nebu 3 mL Q4H prn [Active]; Albuterol jd3 Inhl [Active]; apixaban 5 mg Oral 1 tab 2 times per day [Active]; aspirin 81 mg Oral TbEC 1 tab once daily [Active]; budesonide 3 mg Oral CECX 3 caps once daily [Active]; cyanocobalamin (vitamin B-12) 100 mcg Oral tab daily [Active]; atorvastatin 80 mg Oral tab 0.5 tab once daily [Active]; docusate sodium 100 mg Oral cap 1 cap 2 times per day [Active]; budesonide-formoterol inhalation 2 puffs 2 times per day [Active]; finasteride 5 mg Oral tab 1 tab once daily [Active]; ferrous gluconate 324 mg (36 mg iron) Oral tab twice a day [Active]; furosemide 40 mg Oral tab 3 tabs in am and 2 tabs in pm [Active]; gabapentin 100 mg Oral cap 1 caps 3 times per day [Active]; insulin aspart subcutaneous 35 unit before meals [Active]; insulin detemir subcutaneous 70 units in am and 45 units in pm [Active]; ipratropium bromide 0.02 % inhalation soln 2.5 mL every 6 hours [Active]; isosorbide mononitrate 20 mg Oral tab 4 tab daily [Active]; losartan 100 mg Oral tab 1 tab once daily [Active]; metoprolol tartrate 50 mg Oral tab 1 tab once daily [Active]; pantoprazole 40 mg Oral TbEC 1 tab once daily [Active]; magnesium oxide 420 mg Oral tab daily [Active]; potassium chloride 10 mEq Oral cpER 2 caps once daily [Active]; sertraline 100 mg Oral tab 1 tab once daily [Active]; sotalol 120 mg Oral tab 1 tab 2 times per day [Active]; - PMHx: 21:12 COPD; Depression; Diabetes - IDDM; Hyperlipidemia; Atrial Fib; CHF; Hypertension; jd3 prostate problems; Crohn's; - PSHx: 21:12 Heart stents; colon resection; Hernia repair; right lower extremity amputation; jd3 - Immunization history:: Adult Immunizations up to date. - Social history:: Smoking status: Patient/guardian denies using tobacco, but has a distant history of tobacco abuse. - Ebola Screening: : Patient negative for fever greater than or equal to 101.5 degrees Fahrenheit, and additional compatible Ebola Virus Disease symptoms. ROS: 21:51 Constitutional: Negative for fever, chills, and weight loss, Eyes: Negative for injury, colin pain, redness, and discharge, ENT: Negative for injury, pain, and discharge, Neck: Negative for injury, pain, and swelling, Abdomen/GI: Negative for abdominal pain, nausea, vomiting, diarrhea, and constipation, Back: Negative for injury and pain, : Negative for injury, bleeding, discharge, and swelling, MS/Extremity: Negative for injury and deformity, Skin: Negative for injury, rash, and discoloration, Neuro: Negative for headache, weakness, numbness, tingling, and seizure, Psych: Negative for depression, anxiety, suicide ideation, homicidal ideation, and hallucinations, Allergy/Immunology: Negative for hives, rash, and allergies, Endocrine: Negative for neck swelling, polydipsia, polyuria, polyphagia, and marked weight changes, Hematologic/Lymphatic: Negative for swollen nodes, abnormal bleeding, and unusual bruising. 21:51 Cardiovascular: Positive for chest pain. 21:51 Respiratory: Positive for cough, "sounds productive", dyspnea on exertion, shortness of breath, at rest. wheezing, expiratory. Exam: 21:51 Constitutional: This is a well developed, well nourished patient who is awake, alert, colin and in no acute distress. Head/Face: Normocephalic, atraumatic. Eyes: Pupils equal round and reactive to light, extra-ocular motions intact. Lids and lashes normal. Conjunctiva and sclera are non-icteric and not injected. Cornea within normal limits. Periorbital areas with no swelling, redness, or edema. ENT: Nares patent. No nasal discharge, no septal abnormalities noted. Tympanic membranes are normal and external auditory canals are clear. Oropharynx with no redness, swelling, or masses, exudates, or evidence of obstruction, uvula midline. Mucous membranes moist. Neck: Trachea midline, no thyromegaly or masses palpated, and no cervical lymphadenopathy. Supple, full range of motion without nuchal rigidity, or vertebral point tenderness. No Meningismus. Chest/axilla: Normal chest wall appearance and motion. Nontender with no deformity. No lesions are appreciated. Abdomen/GI: Soft, non-tender, with normal bowel sounds. No distension or tympany. No guarding or rebound. No evidence of tenderness throughout. Back: No spinal tenderness. No costovertebral tenderness. Full range of motion. Male : Normal genitalia with no discharge or lesions. Skin: Warm, dry with normal turgor. Normal color with no rashes, no lesions, and no evidence of cellulitis. MS/ Extremity: Pulses equal, no cyanosis. Neurovascular intact. Full, normal range of motion. Neuro: Awake and alert, GCS 15, oriented to person, place, time, and situation. Cranial nerves II-XII grossly intact. Motor strength 5/5 in all extremities. Sensory grossly intact. Cerebellar exam normal. Normal gait. Psych: Awake, alert, with orientation to person, place and time. Behavior, mood, and affect are within normal limits. 21:51 Cardiovascular: Rate: tachycardic, Rhythm: regular, Pulses: Pulses are 4+ in bilateral radial, brachial, femoral, popliteal, posterior tibial and and dorsalis pedis arteries.. JVD: is not appreciated. Vital Signs: 21:13 BP 154 / 73; Pulse 104; Resp 21 S; Temp 98.6(O); Pulse Ox 99% on 3 lpm NC; Weight 96.16 jd3 kg (R); Height 6 ft. (182.88 cm) (R); Pain 7/10; 22:28 BP 121 / 99; Pulse 103; Resp 17; Pulse Ox 100% on R/A; aj1 23:23 BP 121 / 61; Pulse 106; Resp 19; Pulse Ox 100% on R/A; ak1 21:13 Body Mass Index 28.75 (96.16 kg, 182.88 cm) jd3 MDM: 21:16 Patient medically screened. [facility] 21:55 Data reviewed: vital signs, nurses notes, lab test result(s), EKG, radiologic studies, colin plain films. 07/25 21:11 Order name: Basic Metabolic Panel; Complete Time: 23:31 [facility] 07/25 21:11 Order name: CBC with Diff; Complete Time: 23:31 [facility] 07/25 21:11 Order name: LFT's; Complete Time: 23:31 [facility] 07/25 21:11 Order name: Magnesium; Complete Time: 23:31 [facility] 07/25 21:11 Order name: NT PRO-BNP; Complete Time: 23:31 [facility] 07/25 21:11 Order name: PT-INR; Complete Time: 23:31 [facility] 07/25 21:11 Order name: Troponin (emerg Dept Use Only); Complete Time: 23:31 [facility] 07/25 21:11 Order name: Blood Culture Adult (2) [facility] 07/25 21:11 Order name: Lipase; Complete Time: 23:31 [facility] 07/25 21:11 Order name: Urine Culture [facility] 07/25 21:11 Order name: Lactate; Complete Time: 23:31 [facility] 07/25 21:11 Order name: Procalcitonin; Complete Time: 23:31 [facility] 07/25 21:54 Order name: Influenza Screen (a \\T\\ B) [facility] 07/25 22:34 Order name: Manual Differential; Complete Time: 23:31 [facility] 07/25 21:11 Order name: XRAY Chest (1 view); Complete Time: 23:31 [facility] 07/25 21:11 Order name: EKG; Complete Time: 21:12 [facility] 07/25 21:11 Order name: Cardiac monitoring; Complete Time: 22:00 [facility] 07/25 21:11 Order name: EKG - Nurse/Tech; Complete Time: 22:00 [facility] 07/25 21:11 Order name: IV Saline Lock; Complete Time: 22:00 [facility] 07/25 21:11 Order name: Labs collected and sent; Complete Time: 22:00 [facility] 07/25 21:11 Order name: O2 Per Protocol; Complete Time: 22:00 [facility] 07/25 21:11 Order name: O2 Sat Monitoring; Complete Time: 22:00 [facility] Administered Medications: 22:57 Drug: Xopenex 3.75 mg Route: Inhalation; ak1 22:57 Drug: AtroVENT Aerosol 0.5 mg Route: Inhalation; ak1 22:58 Drug: SOLU-Medrol 125 mg Route: IVP; Site: right antecubital; ak1 07/26 00:24 Follow up: Response: No adverse reaction [facility] 07/25 22:58 Drug: Zosyn 3.375 grams Route: IVPB; Infused Over: 60 mins; Site: right antecubital; ak1 07/26 00:25 Follow up: IV Status: Completed infusion ak1 00:50 Drug: Insulin Regular Human 8 units {Co-Signature: laureano (Sachi Verde RN).} Route: IVP; ea Site: right antecubital; 00:52 Follow up: Response: No adverse reaction ak1 00:51 Drug: vancoMYCIN 1 grams Route: IVPB; Infused Over: 2 hrs; Site: right antecubital; ea 00:52 Follow up: IV Status: Infusion continued upon admission ak Point of Care Testing: Blood Glucose: 07/25 21:57 Blood Glucose: 374 mg/dL; oe Ranges: Critical Glucose Levels:Adult <50 mg/dl or >400 mg/dl <40 mg/dl or >180 mg/dl Disposition: 07/25/18 22:16 Hospitalization ordered by Shweta Sheppard for Inpatient Admission. Preliminary diagnosis are Dyspnea, Chronic obstructive pulmonary disease with (acute) exacerbation, Pneumonia due to other specified bacteria, Type 1 diabetes mellitus, Atrial fibrillation and flutter, Elevated white blood cell count, Unspecified kidney failure - worsening, Cellulitis of left lower limb. - Bed requested for Telemetry/MedSurg (Inpatient). - Status is Inpatient Admission. ak1 - Condition is Fair. - Problem is new. - Symptoms have improved. UTI on Admission? No Signatures: Dispatcher [employer] Serge Mata MD MD cha Krenek, Amber, RN RN ak1 Leighann New RN RN cg Mikayla Ricketts RN RN ea Davies, Jonathon, RN RN jd3 Sachi Verde RN ak1 Corrections: (The following items were deleted from the chart) 23:35 22:16 Hospitalization Ordered by Shweta Sheppard MD for Inpatient Admission. Preliminary colin diagnosis is Dyspnea; Chronic obstructive pulmonary disease with (acute) exacerbation; Pneumonia due to other specified bacteria; Type 1 diabetes mellitus; Atrial fibrillation and flutter; Elevated white blood cell count. Bed requested for Telemetry/MedSurg (Inpatient). Status is Inpatient Admission. Condition is Fair. Problem is new. Symptoms have improved. UTI on Admission? No. colin 23:36 23:35 07/25/2018 22:16 Hospitalization Ordered by Cordell Herrera MD for Inpatient colin Admission. Preliminary diagnosis is Dyspnea; Chronic obstructive pulmonary disease with (acute) exacerbation; Pneumonia due to other specified bacteria; Type 1 diabetes mellitus; Atrial fibrillation and flutter; Elevated white blood cell count; Unspecified kidney failure - worsening. Bed requested for Telemetry/MedSurg (Inpatient). Status is Inpatient Admission. Condition is Fair. Problem is new. Symptoms have improved. UTI on Admission? No. colin 23:46 23:36 07/25/2018 22:16 Hospitalization Ordered by Cordell Herrera MD for Inpatient colin Admission. Preliminary diagnosis is Dyspnea; Chronic obstructive pulmonary disease with (acute) exacerbation; Pneumonia due to other specified bacteria; Type 1 diabetes mellitus; Atrial fibrillation and flutter; Elevated white blood cell count; Unspecified kidney failure - worsening; Cellulitis of left lower limb. Bed requested for Telemetry/MedSurg (Inpatient). Status is Inpatient Admission. Condition is Fair. Problem is new. Symptoms have improved. UTI on Admission? No. colin 23:48 23:46 07/25/2018 22:16 Hospitalization Ordered by Shweta Sheppard MD for Inpatient cg Admission. Preliminary diagnosis is Dyspnea; Chronic obstructive pulmonary disease with (acute) exacerbation; Pneumonia due to other specified bacteria; Type 1 diabetes mellitus; Atrial fibrillation and flutter; Elevated white blood cell count; Unspecified kidney failure - worsening; Cellulitis of left lower limb. Bed requested for Telemetry/MedSurg (Inpatient). Status is Inpatient Admission. Condition is Fair. Problem is new. Symptoms have improved. UTI on Admission? No. colin 07/26 00:55 07/25 23:48 07/25/2018 22:16 Hospitalization Ordered by Shweta Sheppard MD for Inpatient ak1 Admission. Preliminary diagnosis is Dyspnea; Chronic obstructive pulmonary disease with (acute) exacerbation; Pneumonia due to other specified bacteria; Type 1 diabetes mellitus; Atrial fibrillation and flutter; Elevated white blood cell count; Unspecified kidney failure - worsening; Cellulitis of left lower limb. Bed requested for Telemetry/MedSurg (Inpatient). Status is Inpatient Admission. Condition is Fair. Problem is new. Symptoms have improved. UTI on Admission? No. cg
--- NOTE | 2018-07-25 22:17 | ER ---
Nurse's Notes [facility] Name: Jethro Burden Age: 73 yrs Sex: Male : 1945 Arrival Date: 07/25/2018 Time: 20:42 Bed 8 Private MD: Diagnosis: Dyspnea;Chronic obstructive pulmonary disease with (acute) exacerbation;Pneumonia due to other specified bacteria;Type 1 diabetes mellitus;Atrial fibrillation and flutter;Elevated white blood cell count;Unspecified kidney failure-worsening;Cellulitis of left lower limb Presentation: 07/25 21:06 Presenting complaint: Patient states: "I have been feeling shortness of breath all day. jd3 I have also been coughing up orange stuff and my blood sugar monitor at home just says high without giving me a number.". Transition of care: patient was not received from another setting of care. Onset of symptoms was July 25, 2018. Risk Assessment: Do you want to hurt yourself or someone else? Patient reports no desire to harm self or others. Initial Sepsis Screen: Does the patient meet any 2 criteria? No. Patient's initial sepsis screen is negative. Does the patient have a suspected source of infection? No. Patient's initial sepsis screen is negative. Care prior to arrival: None. 21:06 Method Of Arrival: Wheelchair jd3 21:06 Acuity: TAN 3 jd3 Triage Assessment: 21:15 Respiratory: Reports shortness of breath Onset: The symptoms/episode began/occurred jd3 this morning, the patient has mild shortness of breath. Historical: - Allergies: 21:12 NKDA; jd3 - Home Meds: 21:12 albuterol sulfate 2.5 mg /3 mL (0.083 %) Inhl nebu 3 mL Q4H prn [Active]; Albuterol jd3 Inhl [Active]; apixaban 5 mg Oral 1 tab 2 times per day [Active]; aspirin 81 mg Oral TbEC 1 tab once daily [Active]; budesonide 3 mg Oral CECX 3 caps once daily [Active]; cyanocobalamin (vitamin B-12) 100 mcg Oral tab daily [Active]; atorvastatin 80 mg Oral tab 0.5 tab once daily [Active]; docusate sodium 100 mg Oral cap 1 cap 2 times per day [Active]; budesonide-formoterol inhalation 2 puffs 2 times per day [Active]; finasteride 5 mg Oral tab 1 tab once daily [Active]; ferrous gluconate 324 mg (36 mg iron) Oral tab twice a day [Active]; furosemide 40 mg Oral tab 3 tabs in am and 2 tabs in pm [Active]; gabapentin 100 mg Oral cap 1 caps 3 times per day [Active]; insulin aspart subcutaneous 35 unit before meals [Active]; insulin detemir subcutaneous 70 units in am and 45 units in pm [Active]; ipratropium bromide 0.02 % inhalation soln 2.5 mL every 6 hours [Active]; isosorbide mononitrate 20 mg Oral tab 4 tab daily [Active]; losartan 100 mg Oral tab 1 tab once daily [Active]; metoprolol tartrate 50 mg Oral tab 1 tab once daily [Active]; pantoprazole 40 mg Oral TbEC 1 tab once daily [Active]; magnesium oxide 420 mg Oral tab daily [Active]; potassium chloride 10 mEq Oral cpER 2 caps once daily [Active]; sertraline 100 mg Oral tab 1 tab once daily [Active]; sotalol 120 mg Oral tab 1 tab 2 times per day [Active]; - PMHx: 21:12 COPD; Depression; Diabetes - IDDM; Hyperlipidemia; Atrial Fib; CHF; Hypertension; jd3 prostate problems; Crohn's; - PSHx: 21:12 Heart stents; colon resection; Hernia repair; right lower extremity amputation; jd3 - Immunization history:: Adult Immunizations up to date. - Social history:: Smoking status: Patient/guardian denies using tobacco, but has a distant history of tobacco abuse. - Ebola Screening: : Patient negative for fever greater than or equal to 101.5 degrees Fahrenheit, and additional compatible Ebola Virus Disease symptoms. Screenin:14 Abuse screen: Denies threats or abuse. Nutritional screening: No deficits noted. jd3 Tuberculosis screening: No symptoms or risk factors identified. Fall Risk Ambulatory Aid- Crutches/Cane/Walker (15 pts). Gait- Weak (10 pts.). Mental Status- Oriented to own ability (0 pts). Total Strong Fall Scale indicates Low Risk Score (25-44 pts). Fall prevention measures have been instituted. Side Rails Up X 2 Placed close to Nursing Station Frequent Obs/Assesments occuring Family Present and informed to notify staff if they need to leave bedside. Assessment: 21:20 General: Appears in no apparent distress. uncomfortable, Behavior is calm, cooperative, aj1 appropriate for age. Pain: Complains of pain in chest Pain does not radiate. Neuro: Level of Consciousness is awake, alert, obeys commands. Cardiovascular: Reports chest pain, shortness of breath, Heart tones S1 S2 present Patient's skin is warm and dry. Rhythm is sinus tachycardia. Respiratory: Reports shortness of breath at rest cough that is productive, persistent Airway is patent Respiratory effort is even, unlabored, Respiratory pattern is regular, symmetrical, Breath sounds with wheezes bilaterally. Onset: The symptoms/episode began/occurred 2 days ago. GI: No signs and/or symptoms were reported involving the gastrointestinal system. Abdomen is round non-distended. : No signs and/or symptoms were reported regarding the genitourinary system. EENT: No signs and/or symptoms were reported regarding the EENT system. Derm: No signs and/or symptoms reported regarding the dermatologic system. Skin is pink, warm \\T\\ dry. normal. Musculoskeletal: No signs and/or symptoms reported regarding the musculoskeletal system. Circulation, motion, and sensation intact. 22:28 Reassessment: Patient appears in no apparent distress at this time. No changes from aj1 previously documented assessment. Patient and/or family updated on plan of care and expected duration. Pain level reassessed. Patient is alert, oriented x 3, equal unlabored respirations, skin warm/dry/pink. Vital Signs: 21:13 BP 154 / 73; Pulse 104; Resp 21 S; Temp 98.6(O); Pulse Ox 99% on 3 lpm NC; Weight 96.16 jd3 kg (R); Height 6 ft. (182.88 cm) (R); Pain 7/10; 22:28 BP 121 / 99; Pulse 103; Resp 17; Pulse Ox 100% on R/A; aj1 23:23 BP 121 / 61; Pulse 106; Resp 19; Pulse Ox 100% on R/A; ak1 21:13 Body Mass Index 28.75 (96.16 kg, 182.88 cm) jd3 ED Course: 20:42 Patient arrived in ED. ag3 21:08 Triage completed. jd3 21:09 Srege Guallpa MD is Attending Physician. colin 21:14 Arm band placed on. jd3 21:15 Patient has correct armband on for positive identification. Bed in low position. Call jd3 light in reach. Side rails up X 1. Adult w/ patient. 21:19 Tracy Horvath, RYLEE is Primary Nurse. [facility] 21:20 No provider procedures requiring assistance completed. 1 21:34 XRAY Chest (1 view) In Process Unspecified. EDMS 21:55 Initial lab(s) drawn, by me, sent to lab. Inserted saline lock: [address] [facility] antecubital area, using aseptic technique. Blood collected. 22:14 Shweta Sheppard MD is Hospitalizing Provider. [facility] 23:34 Cordell Herrera MD is Hospitalizing Provider. [facility] 23:46 Shweta Sheppard MD is Hospitalizing Provider. [facility] 07/26 00:53 Patient admitted, IV remains in place. [facility] Administered Medications: 07/25 22:57 Drug: Xopenex 3.75 mg Route: Inhalation; [facility] 22:57 Drug: AtroVENT Aerosol 0.5 mg Route: Inhalation; [facility] 22:58 Drug: SOLU-Medrol 125 mg Route: IVP; Site: right antecubital; [facility] 07/26 00:24 Follow up: Response: No adverse reaction [facility] 07/25 22:58 Drug: Zosyn 3.375 grams Route: IVPB; Infused Over: 60 mins; Site: right antecubital; [facility] 07/26 00:25 Follow up: IV Status: Completed infusion [facility] 00:50 Drug: Insulin Regular Human 8 units {Co-Signature: ak (Sachi Verde RN).} Route: IVP; ea Site: right antecubital; 00:52 Follow up: Response: No adverse reaction [facility] 00:51 Drug: vancoMYCIN 1 grams Route: IVPB; Infused Over: 2 hrs; Site: right antecubital; ea 00:52 Follow up: IV Status: Infusion continued upon admission [facility] Point of Care Testing: Blood Glucose: 07/25 21:57 Blood Glucose: 374 mg/dL; oe Ranges: Outcome: 22:16 Decision to Hospitalize by Provider. [facility] 07/26 00:53 Admitted to Tele ak1 Admitted to Tele accompanied by nurse, via wheelchair, with oxygen, with chart, Report called to Deepthi C. RN Condition: good Instructed on the need for admit. 00:55 Patient left the ED. ak1 Signatures: Dispatcher [employer] EDTracy Ashton, RN RN tanner1 Serge Guallpa MD MD cha Krenek, RYLEE Karimi RN ak1 Alexander Mcneill Elena RN Gulshan Hines ea, RN RN jd3 Joana Henry3 Sachi Verde RN ak1
[2018-07-25 22:30] LABS: Albumin 3.1 g/dL (3.4-5.0); Bilirubin Direct 0.2 mg/dL (0-0.2); Bilirubin Total 0.6 mg/dL (0.2-1.0); Magnesium 2.5 mg/dL (1.8-2.4); Protein, Total 7.3 g/dL (6.4-8.2); Troponin (Emerg Dept Use Only) 0.02 ng/mL (0.0-0.045)
[2018-07-25 22:33] LABS: Blood Morphology Comment NOT SEEN (NOT SEEN); Platelet Estimate ADEQ
[2018-07-25] MEDS ORDERED: METHYLPREDNISOLONE 125 MG INJ ONE (22:54)
[2018-07-25] MEDS ORDERED: IPRATROPIUM BROM 0.5MG/2.5ML ONE (22:54)
[2018-07-25] MEDS ORDERED: LEVALBUTEROL 1.25 MG/3 ML NEB ONE (22:54)
[2018-07-25] MEDS ORDERED: PIPER/TAZO/NS 3.375gm 3.375 GM/100 ML BAG ONE (22:55)
[2018-07-26] MEDS ORDERED: INSULIN -REGULAR HUMAN 50 UNIT/0.5 ML ML ONE (00:49)
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
[2018-07-26] MEDS ORDERED: D50W 25 GM/50 ML SYRINGE IV PRN (01:11)
[2018-07-26] MEDS ORDERED: ACETAMINOPHEN 500 MG TAB PO PRN (01:11)
[2018-07-26] MEDS ORDERED: MORPHINE 4 MG/ML SYR IV PRN (01:11)
[2018-07-26] MEDS ORDERED: GLUCAGON 1 MG/VIAL IM PRN ×2 (01:11→12:35)
[2018-07-26] MEDS ORDERED: ONDANSETRON 4 MG/2 ML VIAL IV PRN (01:11)
[2018-07-26] MEDS: METHYLPREDNISOLONE 40 MG INJ IV SCH ×2 (01:11→08:50)
[2018-07-26] MEDS: PIPER/TAZO/NS 3.375gm 3.375 GM/100 ML BAG IVPB SCH ×4 (01:11→16:39)
[2018-07-26] MEDS: NA CHLORIDE 0.9% 1,000 ML IV SCH ×3 (03:09→21:06)
[2018-07-26] MEDS ORDERED: VANCOMYCIN 0.75 GM in NA CHLORIDE 0.9% 250 ML IV SCH (04:00)
[2018-07-26] MEDS ORDERED: VANCOMYCIN 1GM/D5W 1 GM/200 ML BAG IV SCH (04:00)
[2018-07-26] MEDS ORDERED: VANCOMYCIN 1.75 GM in NA CHLORIDE 0.9% 500 ML IVPB SCH (04:00)
[2018-07-26] MEDS ORDERED: VANCOMYCIN 1 GM/VIAL ONE (04:55)
[2018-07-26] MEDS ORDERED: PIPER/TAZO/NS 3.375gm 3.375 GM/100 ML BAG ONE (04:56)
[2018-07-26] MEDS ORDERED: NA CHLORIDE 0.9% 250 ML ONE (06:07)
[2018-07-26 06:15] LABS: Absolute Lymphocytes (CBC) 0.5 K/uL (0.7-4.9); Absolute Monocytes 0.1 K/uL (0.1-1.3); Absolute Neutrophil 26.4 K/uL (1.8-8.0); Hematocrit 31.7 % (39.6-49.0); Lymphocytes % 1.7 % (15.3-44.8); Monocytes % 0.5 % (3.3-12.3); RBC Red Blood Cell Count 3.65 M/uL (4.33-5.43)
--- NOTE | 2018-07-26 06:26 | EKG ---
Test Date: 2018-07-25 Test Time: 21:51:45 Security Delivery Specialist: SAVITA MEASUREMENT RESULTS: Intervals: Rate: 105 CA: QRSD: 100 QT: 368 QTc: 486 [place]: P: -45 CA: QRS: 76 T: 65 INTERPRETIVE STATEMENTS: Sinus tachycaredia Abnormal ECG Compared to ECG 07/12/2018 23:02:25 Sinus rhythm no longer present Atrial premature complex(es) no longer present Myocardial infarct finding no longer present Electronically Signed On 07-26-18 06:25:46 APARTMENT RENTAL CLERK by Bertram Welch
[2018-07-26 06:27] LABS: Potassium 4.8 mmol/L (3.5-5.1)
[2018-07-26] MEDS ORDERED: INSULIN -REGULAR HUMAN 50 UNIT/0.5 ML ML SQ SCH ×2 (07:30)
[2018-07-26] MEDS: INSULIN -REGULAR HUMAN 50 UNIT/0.5 ML ML SQ SCH ×4 (08:48→20:59)
[2018-07-26] MEDS ORDERED: FAMOTIDINE 20 MG/2 ML VIAL IV SCH (09:00)
[2018-07-26] MEDS ORDERED: VANCOMYCIN 1 GM in NA CHLORIDE 0.9% 500 ML IVPB SCH (09:00)
[2018-07-26] MEDS ORDERED: ENOXAPARIN 40 MG/0.4 ML SQ SCH (09:00)
--- NOTE | 2018-07-26 09:22 | RAD REPORT ---
EXAM DESCRIPTION: [place] Single View07/26/2018 7:06 am CLINICAL HISTORY: Chest pain COMPARISON: July 25, 2018 FINDINGS: Left basilar opacity has resolved. Residual mild left basilar opacity is chronic. Lungs appear clear of acute infiltrate. Heart is mildly enlarged
--- NOTE | 2018-07-26 15:34 | EKG ---
Test Date: 2018-07-26 Test Time: 10:06:28 Sales Representative Facility Services: WANDA MEASUREMENT RESULTS: Intervals: Rate: 90 MO: 160 QRSD: 92 QT: 394 QTc: 481 [place]: P: -63 MO: 160 QRS: 74 T: 71 INTERPRETIVE STATEMENTS: Unusual P axis, possible ectopic atrial rhythm with premature atrial complexes Incomplete right bundle branch block Prolonged QT Abnormal ECG Compared to ECG 07/25/2018 21:51:45 Incomplete right bundle-branch block now present Prolonged QT interval now present Electronically Signed On 07-26-18 15:33:06 STEAM SHOVELMAN by Jose Rubio
--- NOTE | 2018-07-26 15:34 | P.PN ---
Subjective Date of Service: 07/26/18 Chief Complaint: COPD exacerbation Subjective: Improving Patient seen and examined chart reviewed and case discussed with RN. No specific complaints, no acute events overnight Review of Systems 10-point ROS is otherwise unremarkable Respiratory: Shortness of Breath Physical Examination - Vital Signs Temperature: 97.4 F Blood Pressure: 124/57 Pulse: 89 Respirations: 18 Pulse Ox (%): 96 - Physical Exam General: Alert, Mild distress, Other (Ill-appearing elderly male) HEENT: Atraumatic, PERRLA, EOMI Neck: Supple, JVD not distended Respiratory: Diminished, Expiratory wheezes, Other (No stridor) Cardiovascular: No edema, Regular rate/rhythm, Normal S1 S2 Capillary refill: <2 Seconds Gastrointestinal: Normal bowel sounds, Soft and benign, Non-distended, No tenderness Musculoskeletal: No clubbing, No erythema, No tenderness Integumentary: No rashes, No erythema Neurological: Normal speech, Normal tone, Cranial nerves 3-12 intact, Normal affect - Studies Laboratory Data (last 24 hrs) 07/25/18 21:55: PT 14.2 H, INR 1.20 07/25/18 21:55: WBC 30.2 H* D, Hgb 11.9 L, Hct 36.0 L, Plt Count 215 D 07/25/18 21:55: Sodium 125 L, Potassium 4.0, BUN 55 H, Creatinine 2.04 H, Glucose 343 H, Magnesium 2.5 H, Total Bilirubin 0.6, AST 15, ALT 23, Alkaline Phosphatase 151 H, Lipase 111 Microbiology Data (last 24 hrs): 07/25/18 23:35 Nasopharnyx Influenza Type A Antigen Screen - Final 07/25/18 23:35 Nasopharnyx Influenza Type B Antigen Screen - Final Medications List Reviewed: Yes Assessment And Plan - Current Problems (Diagnosis) (1) Acute kidney injury superimposed on CKD Onset Date: 07/26/18 Current Visit: Yes Status: Acute (2) Sepsis Onset Date: 07/26/18 Current Visit: Yes Status: Acute Qualifiers: Sepsis type: sepsis due to unspecified organism Qualified Code(s): A41.9 - Sepsis, unspecified organism (3) Below knee amputation status Current Visit: No Status: Acute Qualifiers: Laterality: right Qualified Code(s): Z89.511 - Acquired absence of right leg below knee (4) COPD exacerbation Onset Date: 03/14/18 Current Visit: No Status: Acute (5) Chronic atrial fibrillation Current Visit: No Status: Acute (6) Depressive disorder Onset Date: 02/12/18 Current Visit: No Status: Acute (7) Anemia Current Visit: No Status: Chronic Qualifiers: Anemia type: due to chronic kidney disease Chronic kidney disease stage: stage 3 (moderate) Qualified Code(s): N18.3 - Chronic kidney disease, stage 3 (moderate); D63.1 - Anemia in chronic kidney disease (8) CHF (congestive heart failure) Onset Date: 02/12/18 Current Visit: No Status: Chronic Qualifiers: Heart failure type: diastolic Heart failure chronicity: chronic Qualified Code(s): I50.32 - Chronic diastolic (congestive) heart failure (9) Chronic anticoagulation Onset Date: 03/26/18 Current Visit: No Status: Chronic (10) Diabetes mellitus, type II, insulin dependent Onset Date: 05/13/15 Current Visit: No Status: Chronic (11) Essential (primary) hypertension Current Visit: No Status: Chronic (12) Hyperlipidemia Onset Date: 02/12/18 Current Visit: No Status: Chronic Qualifiers: Hyperlipidemia type: unspecified Qualified Code(s): E78.5 - Hyperlipidemia , unspecified (13) Pneumonia Onset Date: 12/09/14 Current Visit: No Status: Resolved Qualifiers: Pneumonia type: due to unspecified organism Laterality: left Lung location: lower lobe of lung Qualified Code(s): J18.1 - Lobar pneumonia, unspecified organism - Plan Continue antibiotics Follow up on cultures Weaned down steroids Adjust insulin Dc in next 24-48 hr Discharge Plan: Home Plan to discharge in: Greater than 2 days - Code Status/Comfort Care Code Status Assessed: Yes
[2018-07-26] MEDS: INSULIN LISPRO 100 UNIT/1 ML SQ SCH (16:39)
[2018-07-26] MEDS: ALBUTEROL 2.5 MG/3 ML NEB SOL NEB PRN (20:40)
[2018-07-26] MEDS: IPRATROPIUM BROM 0.5MG/2.5ML NEB PRN (20:40)
[2018-07-26] MEDS: predniSONE 20 MG TAB PO SCH (20:56)
[2018-07-26] MEDS: FUROSEMIDE 40 MG TABLET PO SCH (20:57)
[2018-07-26] MEDS: SOTALOL HCL 80 MG TAB PO SCH (20:57)
[2018-07-26] MEDS: APIXABAN 5 MG TABLET PO SCH (20:57)
[2018-07-26] MEDS: ATORVASTATIN 40 MG TAB PO SCH (20:57)
[2018-07-26] MEDS: DOCUSATE NA 100 MG CAP PO SCH (20:58)
[2018-07-26] MEDS: GABAPENTIN 100 MG CAP PO SCH (20:58)
[2018-07-26] MEDS: INSULIN GLARGINE 100 UNITS/ML SQ SCH (20:58)
[2018-07-26] MEDS ORDERED: HOME MED 1 EA UNK (Budesonide/Formoterol Fumarate [Symbicort 160-4.5 Mcg Inhaler] 2 PUFF) IH SCH (21:00)
[2018-07-26] MEDS ORDERED: HOME MED 1 EA UNK (Ferrous Gluconate [Ferrous Gluconate] 1 TAB) PO SCH (21:00)
[2018-07-26] MEDS ORDERED: HOME MED 1 EA UNK (Sotalol Hcl [Sotalol] 80 MG) PO SCH (21:00)
[2018-07-27] MEDS: PIPER/TAZO/NS 3.375gm 3.375 GM/100 ML BAG IVPB SCH ×3 (00:16→18:38)
[2018-07-27] MEDS: NA CHLORIDE 0.9% 1,000 ML IV SCH ×3 (00:16→17:11)
[2018-07-27] MEDS: PANTOPRAZOLE 40MG TABLET PO SCH (05:09)
[2018-07-27 05:58] LABS: Absolute Lymphocytes (CBC) 0.5 K/uL (0.7-4.9); Absolute Monocytes 0.4 K/uL (0.1-1.3); Absolute Neutrophil 16.5 K/uL (1.8-8.0); Basophils % 0.1 % (0-1.3); Hematocrit 30.1 % (39.6-49.0); Lymphocytes % 2.7 % (15.3-44.8); RBC Red Blood Cell Count 3.51 M/uL (4.33-5.43)
[2018-07-27 06:21] LABS: Albumin 2.4 g/dL (3.4-5.0); Bilirubin Total 0.4 mg/dL (0.2-1.0); Protein, Total 5.9 g/dL (6.4-8.2)
[2018-07-27 07:05] LABS: Blood Morphology Comment NOT SEEN (NOT SEEN); Platelet Estimate ADEQ; Urine White Blood Cell Casts OK
[2018-07-27] MEDS: INSULIN -REGULAR HUMAN 50 UNIT/0.5 ML ML SQ SCH ×5 (07:30→21:44)
[2018-07-27] MEDS ORDERED: HOME MED 1 EA UNK (Losartan Potassium [Losartan Potassium] 1 TAB) PO SCH (09:00)
[2018-07-27] MEDS: BUDESONIDE, MICRONIZED 3 MG CAP PO SCH (09:18)
[2018-07-27] MEDS: ISOSORBIDE MONO SR 60 MG TAB PO SCH (09:18)
[2018-07-27] MEDS: GABAPENTIN 100 MG CAP PO SCH ×3 (09:18→20:25)
[2018-07-27] MEDS: LOSARTAN POTASSIUM 50 MG TABLET PO SCH (09:19)
[2018-07-27] MEDS: FINASTERIDE 5 MG TAB PO SCH (09:19)
[2018-07-27] MEDS: ASPIRIN 81 MG CHEWABLE TABLET PO SCH (09:19)
[2018-07-27] MEDS: DOCUSATE NA 100 MG CAP PO SCH ×2 (09:19→20:25)
[2018-07-27] MEDS: APIXABAN 5 MG TABLET PO SCH ×2 (09:19→20:25)
[2018-07-27] MEDS: predniSONE 20 MG TAB PO SCH ×2 (09:20→20:25)
[2018-07-27] MEDS: SERTRALINE HCL 100 MG TAB PO SCH (09:20)
[2018-07-27] MEDS: FERROUS GLUCONATE 300 MG TAB PO SCH ×2 (09:21→20:25)
[2018-07-27] MEDS: INSULIN LISPRO 100 UNIT/1 ML SQ SCH ×3 (09:22→16:54)
[2018-07-27] MEDS: INSULIN GLARGINE 100 UNITS/ML SQ SCH ×2 (09:24→21:00)
[2018-07-27] MEDS: SOTALOL HCL 80 MG TAB PO SCH ×2 (09:28→20:23)
[2018-07-27] MEDS: METOPROLOL TAR 50 MG TAB PO SCH (09:28)
[2018-07-27] MEDS: ALBUTEROL 2.5 MG/3 ML NEB SOL NEB PRN ×2 (13:54→19:50)
[2018-07-27] MEDS: IPRATROPIUM BROM 0.5MG/2.5ML NEB PRN ×2 (13:54→19:50)
[2018-07-27] MEDS ORDERED: VANCOMYCIN 1.75 GM in NA CHLORIDE 0.9% 500 ML IVPB SCH (16:00)
--- NOTE | 2018-07-27 19:38 | PN ---
Date of Progress Note: 07/27/2018 The patient is seen and examined. Chart reviewed and case discussed with RN. The patient states his breathing is somewhat better. Medications: List reviewed. Physical Examination: VITAL SIGNS: Temperature 97.5, heart rate 78, blood pressure 159/74, respirations 18, O2 99% on 3 L via nasal cannula. GENERAL: Awake, alert, oriented x3. Some mild distress. Ill-appearing elderly male. CVS: Regular rate and rhythm. Peripheral pulses present. RESPIRATORY: Diminished breath sounds. Diffuse wheezing heard. GASTROINTESTINAL: Abdomen is soft, nontender, nondistended. Positive bowel sounds. EXTREMITIES: Left lower extremity, no clubbing, cyanosis, or edema. MUSCULOSKELETAL: Right BKA. NEUROLOGIC: Nonfocal. Laboratory Data: Sodium 134, potassium 4, chloride 95, CO2 30, BUN 62, creatinine 1.72, glucose 229, calcium 7.8, albumin 2.4. WBC 17.4, H and H 10.2 and 30.1, platelets 190, neutrophils 95%. Blood c ultures, no growth to date. Assessment: 1.Ixhjn-tr-jruqgrp kidney injury stage 3, improving. Continue to monitor. 2.Sepsis. We will continue broad-spectrum antibiotics. Cultures are negative. 3.Pneumonia, left lower lobe. Continue antibiotics. Follow up on cultures. 4.Right sybqkkdoe-bveg-loaqfnpqja. 5.Acute chronic obstructive pulmonary disease exacerbation. Continue breathing treatments and stero ids. We will wean as tolerated. 6.Chronic atrial fibrillation. Currently in sinus rhythm. 7.Major depressive disorder, in remission. Continue home medications. 8.Anemia of chronic disease. 9.Chronic diastolic heart failure, compensated. We will continue fluid restriction and monitor I's and O's. 10.Chronic anticoagulation. 11.Diabetes mellitus type 2, insulin dependent with hyperglycemia. We will adjust insulin dose as n ecessary. Continue Accu-Cheks. 12.Essential hypertension, stable. 13.Mixed hyperlipidemia. Plan: Continue to monitor closely. White count is trending down. The patient has been afebrile. G I and DVT prophylaxis addressed. Patient already on Eliquis, likely discontinue in the next 24-48 ho urs. SA/MODL Voice ID: [id number] Report ID: [id number]
[2018-07-27] MEDS: ATORVASTATIN 40 MG TAB PO SCH (20:24)
[2018-07-27] MEDS: FUROSEMIDE 40 MG TABLET PO SCH (20:24)
--- NOTE | 2018-07-27 21:52 | RAD REPORT ---
EXAM DESCRIPTION: [place] Single View07/27/2018 3:03 pm CLINICAL HISTORY: Chest pain COMPARISON: July 26 FINDINGS: Chronic left basilar opacity. 8 millimeter nodular opacity is present within the right lung base. The heart is mildly enlarged IMPRESSION: 8 millimeter nodular opacity within the right lung base may represent pulmonary nodule o r nipple shadow. Follow-up chest film with nipple markers and oblique views recommended
[2018-07-28] MEDS: PIPER/TAZO/NS 3.375gm 3.375 GM/100 ML BAG IVPB SCH ×3 (00:07→16:38)
[2018-07-28] MEDS: NA CHLORIDE 0.9% 1,000 ML IV SCH ×4 (02:11→20:50)
[2018-07-28] MEDS: IPRATROPIUM BROM 0.5MG/2.5ML NEB PRN ×5 (05:30→22:19)
[2018-07-28] MEDS: ALBUTEROL 2.5 MG/3 ML NEB SOL NEB PRN ×5 (05:30→22:19)
[2018-07-28 05:46] LABS: Absolute Lymphocytes (CBC) 0.5 K/uL (0.7-4.9); Absolute Monocytes 0.3 K/uL (0.1-1.3); Absolute Neutrophil 12.1 K/uL (1.8-8.0); Basophils % 0.1 % (0-1.3); Hematocrit 30.3 % (39.6-49.0); Lymphocytes % 3.9 % (15.3-44.8); MPV 8.5 fL (7.6-11.3); Monocytes % 2.5 % (3.3-12.3); RBC Red Blood Cell Count 3.45 M/uL (4.33-5.43)
[2018-07-28 06:06] LABS: Albumin 2.4 g/dL (3.4-5.0); Bilirubin Total 0.4 mg/dL (0.2-1.0); Potassium 3.5 mmol/L (3.5-5.1); Protein, Total 6.1 g/dL (6.4-8.2)
[2018-07-28] MEDS: INSULIN -REGULAR HUMAN 50 UNIT/0.5 ML ML SQ SCH ×4 (07:30→20:54)
[2018-07-28 07:38] VITALS: BMI 28.8
[2018-07-28] MEDS: INSULIN LISPRO 100 UNIT/1 ML SQ SCH ×3 (08:34→16:41)
[2018-07-28] MEDS: KCL 20 MEQ/100 mL IVPB 20 MEQ/100 ML BAG IV SCH ×2 (08:35→12:29)
[2018-07-28] MEDS: INSULIN GLARGINE 100 UNITS/ML SQ SCH ×2 (08:35→20:54)
[2018-07-28 09:01] LABS: Potassium 3.5 mmol/L (3.5-5.1)
[2018-07-28] MEDS: PANTOPRAZOLE 40MG TABLET PO SCH (09:27)
[2018-07-28] MEDS: LOSARTAN POTASSIUM 50 MG TABLET PO SCH (09:27)
[2018-07-28] MEDS: SERTRALINE HCL 100 MG TAB PO SCH (09:27)
[2018-07-28] MEDS: ASPIRIN 81 MG CHEWABLE TABLET PO SCH (09:27)
[2018-07-28] MEDS: GABAPENTIN 100 MG CAP PO SCH ×3 (09:28→20:52)
[2018-07-28] MEDS: METOPROLOL TAR 50 MG TAB PO SCH (09:28)
[2018-07-28] MEDS: FERROUS GLUCONATE 300 MG TAB PO SCH ×2 (09:28→20:52)
[2018-07-28] MEDS: predniSONE 20 MG TAB PO SCH ×2 (09:28→20:52)
[2018-07-28] MEDS: SOTALOL HCL 80 MG TAB PO SCH ×2 (09:29→20:54)
[2018-07-28] MEDS: DOCUSATE NA 100 MG CAP PO SCH ×2 (09:29→20:52)
[2018-07-28] MEDS: ISOSORBIDE MONO SR 60 MG TAB PO SCH (09:29)
[2018-07-28] MEDS: APIXABAN 5 MG TABLET PO SCH ×2 (10:37→20:53)
[2018-07-28] MEDS: FINASTERIDE 5 MG TAB PO SCH (10:37)
[2018-07-28] MEDS: BUDESONIDE, MICRONIZED 3 MG CAP PO SCH (10:38)
[2018-07-28] MEDS ORDERED: VANCOMYCIN 1.75 GM in NA CHLORIDE 0.9% 500 ML IVPB SCH (17:00)
--- NOTE | 2018-07-28 20:00 | PN ---
Date of Progress Note: 07/28/2018 History: The patient seen and examined. Chart reviewed and case discussed with RN. The patient states he is doing well. Still having some shortness of breath with exertion. Medications: List reviewed. Physical Examination: Vital Signs: Temperature 97.1, heart rate 98, blood pressure 154/72, respirations 20, O2 99% on 3 L via nasal cannula. General: Awake, alert, oriented x3, in some mild respiratory distress. Elderly male, ill-appearing. CV: S1, S2. Peripheral pulses present. Regular rate and rhythm. Respiratory: Diminished breath sounds. Diffuse wheezing heard, somewhat improved from previous. No tachypnea. No use of accessory muscles. Gastrointestinal: Abdomen is soft, nontender, nondistended. Positive bowel sounds. No guarding or rigidity. Extremities: No clubbing, cyanosis, or edema. Musculoskeletal: Right BKA. Neurologic: Nonfocal. Laboratory Data: Sodium 138, potassium 3.5, chloride 99, CO2 33, BUN 46, creatinine 1.46, glucose 138, calcium 8.1. WBC 12.9, H and H 10.3 and 30.3, platelets 170, neutrophils 93%. Blood culture showed no growth to date. Assessment And Plan: A 73-year-old male with: 1. Acute on chronic kidney injury stage 3, improving. 2. Sepsis, improving. Cultures negative to date. Continue antibiotics. 3. Pneumonia left lower lobe. Chest x-ray showed some improvement from previous. 4. Right below-knee amputation. 5. Acute chronic obstructive pulmonary disease exacerbation. Continue breathing treatments and wean off steroids, improving. The patient still requiring supplemental oxygen and has some exertion with dyspnea. 6. Chronic respiratory failure on home O2 for his chronic obstructive pulmonary disease. 7. Chronic atrial fibrillation, currently in sinus rhythm. 8. Major depressive disorder, in remission. Continue SSRI. 9. Anemia of chronic disease. We will continue to monitor hemoglobin and hematocrit. 10. Chronic diastolic heart failure, compensated. Continue fluid restriction. 11. Chronic anticoagulation. 12. Diabetes mellitus type 2, insulin dependent with hyperglycemia. We will adjust insulin doses as necessary. Continue Accu-Cheks. 13. Essential hypertension, stable. 14. Mixed hyperlipidemia, continue statin. 15. Gastrointestinal and deep venous thrombosis prophylaxes addressed. The patient is on Eliquis. Likely discharge in the next 24 hours if the patient continues to improve. SA/MODL Voice ID: [id number] Report ID: [id number]
[2018-07-28] MEDS: ATORVASTATIN 40 MG TAB PO SCH (20:52)
[2018-07-28] MEDS: FUROSEMIDE 40 MG TABLET PO SCH (20:53)
[2018-07-29] MEDS: PIPER/TAZO/NS 3.375gm 3.375 GM/100 ML BAG IVPB SCH ×2 (00:37→09:11)
[2018-07-29 05:14] LABS: Absolute Lymphocytes (CBC) 0.6 K/uL (0.7-4.9); Absolute Monocytes 0.3 K/uL (0.1-1.3); Absolute Neutrophil 9.1 K/uL (1.8-8.0); Hematocrit 31.8 % (39.6-49.0); Lymphocytes % 5.5 % (15.3-44.8); MPV 8.8 fL (7.6-11.3); Monocytes % 3.2 % (3.3-12.3); RBC Red Blood Cell Count 3.67 M/uL (4.33-5.43)
[2018-07-29 05:48] LABS: Albumin 2.4 g/dL (3.4-5.0); Bilirubin Total 0.4 mg/dL (0.2-1.0); Protein, Total 6.1 g/dL (6.4-8.2)
[2018-07-29] MEDS: INSULIN -REGULAR HUMAN 50 UNIT/0.5 ML ML SQ SCH (07:30)
[2018-07-29] MEDS: INSULIN GLARGINE 100 UNITS/ML SQ SCH (08:00)
[2018-07-29] MEDS: ALBUTEROL 2.5 MG/3 ML NEB SOL NEB PRN (08:22)
[2018-07-29] MEDS: IPRATROPIUM BROM 0.5MG/2.5ML NEB PRN (08:22)
[2018-07-29 08:47] VITALS: O2SAT 99
[2018-07-29] MEDS: INSULIN LISPRO 100 UNIT/1 ML SQ SCH (09:00)
[2018-07-29] MEDS: predniSONE 20 MG TAB PO SCH (09:04)
[2018-07-29] MEDS: SOTALOL HCL 80 MG TAB PO SCH (09:05)
[2018-07-29] MEDS: BUDESONIDE, MICRONIZED 3 MG CAP PO SCH (09:05)
[2018-07-29] MEDS: GABAPENTIN 100 MG CAP PO SCH (09:05)
[2018-07-29] MEDS: ASPIRIN 81 MG CHEWABLE TABLET PO SCH (09:05)
[2018-07-29 09:06] VITALS: BP 171/75; TEMP 97.6
[2018-07-29] MEDS: ISOSORBIDE MONO SR 60 MG TAB PO SCH (09:06)
[2018-07-29] MEDS: LOSARTAN POTASSIUM 50 MG TABLET PO SCH (09:06)
[2018-07-29] MEDS: APIXABAN 5 MG TABLET PO SCH (09:06)
[2018-07-29] MEDS: PANTOPRAZOLE 40MG TABLET PO SCH (09:06)
[2018-07-29] MEDS: DOCUSATE NA 100 MG CAP PO SCH (09:07)
[2018-07-29] MEDS: SERTRALINE HCL 100 MG TAB PO SCH (09:07)
[2018-07-29] MEDS: METOPROLOL TAR 50 MG TAB PO SCH (09:07)
[2018-07-29] MEDS: FINASTERIDE 5 MG TAB PO SCH (09:07)
[2018-07-29] MEDS: FERROUS GLUCONATE 300 MG TAB PO SCH (09:09)
[2018-07-29] MEDS: NA CHLORIDE 0.9% 1,000 ML IV SCH (09:12)
--- NOTE | 2018-07-30 11:02 | DS ---
Date of Discharge: 07/29/2018 Admitting Diagnoses: 1.Puzyp-if-kvecwmj kidney injury. 2.Chronic obstructive pulmonary edema exacerbation. 3.Diabetes mellitus type 2, insulin dependent. 4.Hyperlipidemia. 5.Hypertension. 6.Sepsis. Discharge Diagnoses: 1.Sepsis. 2.Pneumonia, left lower lobe. 3.Peeby-dk-ytbnwbp kidney injury, stage 3. 4.Right bilateral knee amputation. 5.Acute chronic obstructive pulmonary disease exacerbation. 6.Chronic respiratory failure. 7.Chronic atrial fibrillation, currently in sinus rhythm. 8.Major depressive disorder, in remission. 9.Anemia of chronic disease, stable. 10.Chronic diastolic heart failure, compensated. 11.Chronic anticoagulation. 12.Diabetes mellitus type 2, insulin dependent with hyperglycemia. 13.Essential hypertension. 14.Mixed hyperlipidemia. Hospital Course: The patient is a 73-year-old male patient of Dr. Herrera, who was admitted to the [facility] while he is out of town. The patient has recurrent admissions for his COPD exacerba tion. The patient was complaining of shortness of breath with productive cough. His pee was found t o be septic. White count of 30,000. He also has some volume depletion. His chest x-ray showed left lower lobe pneumonia. The patient was started on IV antibiotics and cultures were obtained which re mained negative. Influenza screen was also negative. The patient's white count did normalize. He w as also started on nebulizer treatments and IV steroids which were weaned off. The patient's repeat imaging showed chronic left basilar opacity, otherwise improvement and clearing of the acute infiltra te. The patient was then returning back to his baseline status. He is oxygen dependent. I do not h ave any further hypoxic episodes. His congestive heart failure was compensated. The patient overall did well. His blood glucose levels were uncontrolled largely due to his diabetes and IV steroids. However, with adjustment, his blood glucose levels were down in the 140s to 170s. The patient was un able to ambulate without difficulty using his prosthesis. He was then discharged home in a stable co ndition. Activity: Fall precautions. Followup: Follow up with primary care physician in 2-3 days. Return to ER for worsening condition. Diet: Diabetic diet. Fluid restricted diet. Medications: As per medication reconciliation list. Physical Examination: General: Awake, alert, oriented x3. Elderly male, in no acute distress. CVS: S1, S2. Regular rate and rhythm. Peripheral pulses present. Respiratory: Moving air well bilaterally. Minimal wheezing heard. Gastrointestinal: Abdomen is soft, nontender, nondistended. Positive bowel sounds. Extremities: No clubbing, cyanosis, edema. Musculoskeletal: Right BKA. Neurologic: Nonfocal. Total time spent discharging the patient was 32 minutes. /IVORY Voice ID: [id number] Report ID: [id number]
== END 2018-07-29 11:23 | disposition home health service (06) | DRG 871 ==
LOC: ER 20:39 → ERHOLD 23:38 → 2ND 07-26 00:38
PROVIDERS: ADMIT Internal Medicine; ATTEND Internal Medicine
DX: A41.9 Sepsis, unspecified organism (principal); J18.9 Pneumonia, unspecified organism; J96.10 Chronic respiratory failure, unspecified whether with hypoxia or hypercapnia; J44.0 Chronic obstructive pulmonary disease with (acute) lower respiratory infection; J44.1 Chronic obstructive pulmonary disease with (acute) exacerbation; I13.0 Hypertensive heart and chronic kidney disease with heart failure and stage 1 through stage 4 chronic kidney disease, or unspecified chronic kidney disease; I50.32 Chronic diastolic (congestive) heart failure; N17.9 Acute kidney failure, unspecified; E11.22 Type 2 diabetes mellitus with diabetic chronic kidney disease; E11.65 Type 2 diabetes mellitus with hyperglycemia; N18.3 Chronic kidney disease, stage 3 (moderate); I48.2 Chronic atrial fibrillation; D63.1 Anemia in chronic kidney disease; Z79.01 Long term (current) use of anticoagulants; E78.2 Mixed hyperlipidemia; Z89.511 Acquired absence of right leg below knee; F32.9 Major depressive disorder, single episode, unspecified
CPT/HCPCS: 36415; 71045; 80048; 80053; 80076; 80202; 82947; 82962; 83605; 83690; 83735; 83880; 84145; 84484; 85025; 85610; 87040; 87086; 87088; 87804; 93005; 94640; 94760; 96365; 96375; 99285; J1650; J2543; J2920; J2930; J3370; J7030; J7512

== ENCOUNTER 2018-08-04 12:18 | Inpatient (IN) | payer OTHER ==
--- OUTSIDE RECORDS SUMMARY | 2018-08-04 12:20 | XMS REPORT | Clinical Summary ---
:1945 Author Organization [facility] Address [address] [place] [address] Care Team Providers Name Role Phone Asked, [...] Not on file Results Not on fileafter 08/03/2017 Insurance Payer Benefit Plan / Group Subscriber ID Type Phone Address [facility] xxxxxxxxx HMO Advance Directives Patient has advance care planning documents, and code status on file. For more information, please contact:Ari Hernandez[address] [place] [address] Code Status Date Activated Date Inactivated Comments Full Code 05/24/2016 9:28 PM 05/26/2016 4:41 PM Code Status decision reached by: Patient
--- NOTE | 2018-08-04 13:30 | RAD REPORT ---
EXAM DESCRIPTION: Blayne Pettit Left08/04/2018 1:09 pm CLINICAL HISTORY: Left leg pain FINDINGS: No fracture is seen. No bony destructive lesion noted
--- NOTE | 2018-08-04 13:32 | RAD REPORT ---
EXAM DESCRIPTION: RAD - Foot Left 3 View - 08/04/2018 1:08 pm CLINICAL HISTORY: Left Foot pain FINDINGS: Most of the first metatarsal is absent. No obvious osteomyelitis seen. Bones are osteoporotic. No fracture or dislocation noted
[2018-08-04 13:49] LABS: Absolute Lymphocytes (CBC) 1.1 K/uL (0.7-4.9); Absolute Monocytes 0.5 K/uL (0.1-1.3); Absolute Neutrophil 6.9 K/uL (1.8-8.0); Basophils % 0.7 % (0-1.3); Hematocrit 30.6 % (39.6-49.0); Lymphocytes % 12.1 % (15.3-44.8); MPV 8.2 fL (7.6-11.3); Monocytes % 5.2 % (3.3-12.3); RBC Red Blood Cell Count 3.54 M/uL (4.33-5.43)
[2018-08-04 14:06] LABS: Protime INR 1.03
[2018-08-04 14:22] LABS: ALT/SGPT 24 U/L (12-78); AST/SGOT 12 U/L (15-37); Albumin 2.5 g/dL (3.4-5.0); Alkaline Phosphatase 133 U/L (45-117); BUN Blood Urea Nitrogen 36 mg/dL (7-18); Bicarbonate 34 mmol/L (21-32); Bilirubin Direct < 0.1 mg/dL (0-0.2); Bilirubin Total 0.3 mg/dL (0.2-1.0); Glucose Level 297 mg/dL (74-106); Potassium 4.3 mmol/L (3.5-5.1); Protein, Total 6.6 g/dL (6.4-8.2); Sodium Level 139 mmol/L (136-145)
--- NOTE | 2018-08-04 14:50 | RAD REPORT ---
EXAM DESCRIPTION: USExtpietro Venous Uni Ltd08/04/2018 2:14 pm CLINICAL HISTORY: left leg pain and swelling. COMPARISON: 2016 FINDINGS: Left common femoral, superficial femoral, popliteal and posterior tibial veins are compre ssible and demonstrate augmentation. Doppler demonstrates good flow. IMPRESSION: No evidence of deep venous thrombosis involving the left lower extremity.
[2018-08-04 14:56] LABS: Urine Blood NEGATIVE (NEG); Urine Glucose 2+ (NEG); Urine Protein TRACE (NEG); Urine Specific Gravity 1.015 (1.005-1.030)
--- NOTE | 2018-08-04 15:18 | ER ---
Nurse's Notes [facility] Name: Jethro Burden Age: 73 yrs Sex: Male : 1945 Arrival Date: 08/04/2018 Time: 12:23 Bed 19 Private MD: Diagnosis: Cellulitis of left lower limb;Gangrene, not elsewhere classified-2nd left toe Presentation: 08/04 12:23 Presenting complaint: EMS states: called out for possible cellulitis in the left leg em for 3 days, redness and swelling noted to left leg and warm to the touch, denies fever. Transition of care: patient was not received from another setting of care. Onset of symptoms. Risk Assessment: Do you want to hurt yourself or someone else? Patient reports no desire to harm self or others. Initial Sepsis Screen: Does the patient meet any 2 criteria? No. Patient's initial sepsis screen is negative. Does the patient have a suspected source of infection? Yes: Skin breakdown/wound. Care prior to arrival: None. 12:23 Method Of Arrival: EMS: [facility] em 12:30 Acuity: TAN 3 iw Triage Assessment: 12:27 General: Appears in no apparent distress. comfortable, Behavior is calm, cooperative. em Pain: Complains of pain in left leg Pain currently is 8 out of 10 on a pain scale. Historical: - Allergies: 12:27 NKDA; em - Home Meds: 13:00 Albuterol Inhl [Active]; albuterol sulfate 2.5 mg /3 mL (0.083 %) Inhl nebu 3 mL Q4H em prn [Active]; apixaban 5 mg Oral 1 tab 2 times per day [Active]; aspirin 81 mg Oral TbEC 1 tab once daily [Active]; sotalol 120 mg Oral tab 1 tab 2 times per day [Active]; atorvastatin 80 mg Oral tab 0.5 tab once daily [Active]; cyanocobalamin (vitamin B-12) 100 mcg Oral tab daily [Active]; ferrous gluconate 324 mg (36 mg iron) Oral tab twice a day [Active]; docusate sodium 100 mg Oral cap 1 cap 2 times per day [Active]; budesonide 3 mg Oral CECX 3 caps once daily [Active]; finasteride 5 mg Oral tab 1 tab once daily [Active]; losartan 100 mg Oral tab 1 tab once daily [Active]; metoprolol tartrate 50 mg Oral tab 1 tab once daily [Active]; furosemide 40 mg Oral tab 3 tabs in am and 2 tabs in pm [Active]; gabapentin 100 mg Oral cap 1 caps 3 times per day [Active]; potassium chloride 10 mEq Oral cpER 2 caps once daily [Active]; sertraline 100 mg Oral tab 1 tab once daily [Active]; magnesium oxide 420 mg Oral tab daily [Active]; budesonide-formoterol inhalation 2 puffs 2 times per day [Active]; insulin aspart subcutaneous 35 unit before meals [Active]; insulin detemir subcutaneous 70 units in am and 45 units in pm [Active]; ipratropium bromide 0.02 % inhalation soln 2.5 mL every 6 hours [Active]; isosorbide mononitrate 20 mg Oral tab 4 tab daily [Active]; pantoprazole 40 mg Oral TbEC 1 tab once daily [Active]; - PMHx: 12:27 Atrial Fib; CHF; COPD; Crohn's; Depression; Diabetes - IDDM; Hyperlipidemia; em Hypertension; prostate problems; - PSHx: 12:27 colon resection; Hernia repair; below the knee right leg amputation; em - Immunization history:: Adult Immunizations up to date. - Social history:: Smoking status: Patient/guardian denies using tobacco. - Ebola Screening: : Patient negative for fever greater than or equal to 101.5 degrees Fahrenheit, and additional compatible Ebola Virus Disease symptoms Patient denies exposure to infectious person Patient denies travel to an Ebola-affected area in the 21 days before illness onset No symptoms or risks identified at this time. Screenin:28 Abuse screen: Denies threats or abuse. Nutritional screening: No deficits noted. iw Tuberculosis screening: No symptoms or risk factors identified. Fall Risk None identified. Assessment: 12:29 General: Appears in no apparent distress. comfortable, Behavior is calm, cooperative, em Denies fever. Pain: Complains of pain in left leg Pain currently is 8 out of 10 on a pain scale. Neuro: Level of Consciousness is awake, alert, obeys commands, Oriented to person, place, time, situation. Cardiovascular: Denies chest pain, Patient's skin is warm and dry. Respiratory: Airway is patent Respiratory effort is even, unlabored, Respiratory pattern is regular, symmetrical. GI: Abdomen is round non-distended. Derm: redness and swelling noted to the left lower leg, 2nd toe is back and dry, pt reports that has been there since June. Musculoskeletal: Amputation of Other: below the knee- right leg and left leg big toe Range of motion: intact in all extremities. 13:00 Reassessment: I agree with the above assessment by Arnold Bond LVN. iw 13:38 Reassessment: Patient appears in no apparent distress at this time. Patient and/or em family updated on plan of care and expected duration. Pain level reassessed. Patient is alert, oriented x 3, equal unlabored respirations, skin warm/dry/pink. 15:50 Reassessment: Patient appears in no apparent distress at this time. No changes from em previously documented assessment. Patient and/or family updated on plan of care and expected duration. Pain level reassessed. Patient is alert, oriented x 3, equal unlabored respirations, skin warm/dry/pink. pending room assignment. 16:55 Reassessment: Patient appears in no apparent distress at this time. Patient and/or em family updated on plan of care and expected duration. Pain level reassessed. Patient is alert, oriented x 3, equal unlabored respirations, skin warm/dry/pink. Patient states feeling better. Patient states symptoms have improved. 17:35 Reassessment: Patient appears in no apparent distress at this time. Patient and/or em family updated on plan of care and expected duration. Pain level reassessed. Patient is alert, oriented x 3, equal unlabored respirations, skin warm/dry/pink. Patient denies pain at this time. Patient states feeling better. 18:06 Reassessment: Patient appears in no apparent distress at this time. Patient and/or em family updated on plan of care and expected duration. Pain level reassessed. Patient is alert, oriented x 3, equal unlabored respirations, skin warm/dry/pink. Vital Signs: 12:27 BP 156 / 65; Pulse 94; Resp 18; Temp 98.1(O); Pulse Ox 97% on 3 lpm NC; Weight 97.98 em kg; Height 6 ft. 0 in. (182.88 cm); Pain 8/10; 14:00 BP 142 / 62; Pulse 90; Resp 18; Pulse Ox 100% on 3 lpm NC; em 15:00 BP 137 / 67; Pulse 85; Resp 18; Pulse Ox 99% on 3 lpm NC; em 16:00 BP 166 / 76; Pulse 91; Resp 20; Pulse Ox 97% on 3 lpm NC; Pain 4/10; em 17:34 BP 147 / 72; Pulse 89; Resp 18; Temp 97.8(O); Pulse Ox 98% on 3 lpm NC; Pain 0/10; em 12:27 Body Mass Index 29.29 (97.98 kg, 182.88 cm) em ED Course: 12:23 Patient arrived in ED. em 12:23 Gustavo Garcia, CLAIRE is PHCP. pm1 12:23 Serge Guallpa MD is Attending Physician. pm1 12:27 Arm band placed on. em 12:28 Patient has correct armband on for positive identification. Placed in gown. Bed in low iw position. Call light in reach. Side rails up X2. 12:59 Triage completed. iw 13:04 X-ray completed. Portable x-ray completed in exam room. Patient tolerated procedure sg4 well. 13:07 Tib Fib Left XRAY In Process Unspecified. EDMS 13:07 Foot Left 3 View XRAY In Process Unspecified. EDMS 13:12 Arnold Bond LVN is Primary Nurse. em 13:30 Inserted saline lock: 20 gauge in left forearm, using aseptic technique. Blood em collected. 13:30 Initial lab(s) drawn, by me, sent to lab. First set of blood cultures drawn by me. em 14:07 Ultrasound completed. Patient tolerated well. sg3 14:14 Extremity Venous Uni Ltd US In Process Unspecified. EDMS 15:12 Cordell Herrera MD is Hospitalizing Provider. pm1 16:29 Ultrasound completed. Patient tolerated well. sg3 18:11 No provider procedures requiring assistance completed. Patient admitted, IV remains in em place. Administered Medications: 15:19 Drug: Zosyn 3.375 grams Route: IVPB; Infused Over: 60 mins; Site: left forearm; em 16:30 Follow up: Response: No adverse reaction; IV Status: Completed infusion; IV Intake: em 100ml 17:06 Drug: vancoMYCIN 1 grams Route: IVPB; Infused Over: 2 hrs; Site: left forearm; em 18:20 Follow up: Response: No adverse reaction; IV Status: Infusion continued upon admission; em IV Intake: 125ml Intake: 16:30 IV: 100ml; Total: 100ml. em 18:20 IV: 125ml; Total: 225ml. em Outcome: 15:17 Decision to Hospitalize by Provider. pm1 18:11 Admitted to Med/surg accompanied by tech, via wheelchair, room 232, with oxygen, with em chart, Report called to RYLEE Garvin 18:11 Condition: stable 18:11 Instructed on the need for admit, Demonstrated understanding of instructions. 18:40 Patient left the ED. em Signatures: Dispatcher [employer] EDMS Arnold Bond, AIRPLANE PILOT AIRPLANE PILOT em Migdalia Quintero RN RN iw Gustavo Garcia NP VIDEO GAME REPAIR TECHNICIAN pm1 Madison Ovalles sg3 Nathalia New sg4 Corrections: (The following items were deleted from the chart) 13:12 12:23 Presenting complaint: EMS states: called out for possible cellulitis in the left em leg for 3 days, redness and swelling noted to right leg and warm to the touch, denies fever em 17:35 14:00 BP 142 / 62; Pulse 90bpm; Resp 18bpm; Pulse Ox 100% 2 lpm Nasal Cannula; em em 17:35 15:00 BP 137 / 67; Pulse 85bpm; Resp 18bpm; Pulse Ox 99% 2 lpm Nasal Cannula; em em 17:35 16:00 BP 166 / 76; Pulse 91bpm; Resp 20bpm; Pulse Ox 97% 2 lpm Nasal Cannula; Pain em 410; em
--- NOTE | 2018-08-04 15:18 | EDPHYS ---
Physician Documentation [facility] Name: Jethro Burden Age: 73 yrs Sex: Male : 1945 Arrival Date: 08/04/2018 Time: 12:23 Bed 19 Private MD: ED Physician Serge Guallpa HPI: 08/04 13:00 This 73 yrs old Male presents to ER via EMS with complaints of Left Leg Pain. pm1 13:00 The patient presents with pain, that is acute, swelling. The complaints affect the left pm1 leg. Context: The problem was sustained at home, resulted from an unknown cause. Onset: The symptoms/episode began/occurred 3 day(s) ago. Modifying factors: The symptoms are alleviated by nothing. the symptoms are aggravated by nothing. Associated signs and symptoms: Pertinent positives: calf tenderness, swelling, left second toe blackening - present since mid-June, Pertinent negatives fever. Treatment prior to arrival includes: no previous treatment. Severity of symptoms: in the emergency department the symptoms are actually worse. Historical: - Allergies: 12:27 NKDA; em - Home Meds: 13:00 Albuterol Inhl [Active]; albuterol sulfate 2.5 mg /3 mL (0.083 %) Inhl nebu 3 mL Q4H em prn [Active]; apixaban 5 mg Oral 1 tab 2 times per day [Active]; aspirin 81 mg Oral TbEC 1 tab once daily [Active]; sotalol 120 mg Oral tab 1 tab 2 times per day [Active]; atorvastatin 80 mg Oral tab 0.5 tab once daily [Active]; cyanocobalamin (vitamin B-12) 100 mcg Oral tab daily [Active]; ferrous gluconate 324 mg (36 mg iron) Oral tab twice a day [Active]; docusate sodium 100 mg Oral cap 1 cap 2 times per day [Active]; budesonide 3 mg Oral CECX 3 caps once daily [Active]; finasteride 5 mg Oral tab 1 tab once daily [Active]; losartan 100 mg Oral tab 1 tab once daily [Active]; metoprolol tartrate 50 mg Oral tab 1 tab once daily [Active]; furosemide 40 mg Oral tab 3 tabs in am and 2 tabs in pm [Active]; gabapentin 100 mg Oral cap 1 caps 3 times per day [Active]; potassium chloride 10 mEq Oral cpER 2 caps once daily [Active]; sertraline 100 mg Oral tab 1 tab once daily [Active]; magnesium oxide 420 mg Oral tab daily [Active]; budesonide-formoterol inhalation 2 puffs 2 times per day [Active]; insulin aspart subcutaneous 35 unit before meals [Active]; insulin detemir subcutaneous 70 units in am and 45 units in pm [Active]; ipratropium bromide 0.02 % inhalation soln 2.5 mL every 6 hours [Active]; isosorbide mononitrate 20 mg Oral tab 4 tab daily [Active]; pantoprazole 40 mg Oral TbEC 1 tab once daily [Active]; - PMHx: 12:27 Atrial Fib; CHF; COPD; Crohn's; Depression; Diabetes - IDDM; Hyperlipidemia; em Hypertension; prostate problems; - PSHx: 12:27 colon resection; Hernia repair; below the knee right leg amputation; em - Immunization history:: Adult Immunizations up to date. - Social history:: Smoking status: Patient/guardian denies using tobacco. - Ebola Screening: : Patient negative for fever greater than or equal to 101.5 degrees Fahrenheit, and additional compatible Ebola Virus Disease symptoms Patient denies exposure to infectious person Patient denies travel to an Ebola-affected area in the 21 days before illness onset No symptoms or risks identified at this time. ROS: 13:00 Constitutional: Negative for fever, chills, and weight loss, Eyes: Negative for injury, pm1 pain, redness, and discharge, ENT: Negative for injury, pain, and discharge, Neck: Negative for injury, pain, and swelling, Cardiovascular: Negative for chest pain, palpitations, and edema, Respiratory: Negative for shortness of breath, cough, wheezing, and pleuritic chest pain, Abdomen/GI: Negative for abdominal pain, nausea, vomiting, diarrhea, and constipation, Back: Negative for injury and pain, : Negative for injury, bleeding, discharge, and swelling, MS/Extremity: Negative for injury and deformity. 13:00 Neuro: Negative for headache, weakness, numbness, tingling, and seizure. 13:00 Skin: Positive for cellulitis, swelling, of the Left lower leg, blackening of left 2nd toe. Exam: 13:00 Constitutional: This is a well developed, well nourished patient who is awake, alert, pm1 and in no acute distress. Head/Face: Normocephalic, atraumatic. Eyes: Pupils equal round and reactive to light, extra-ocular motions intact. Lids and lashes normal. Conjunctiva and sclera are non-icteric and not injected. Cornea within normal limits. Periorbital areas with no swelling, redness, or edema. ENT: Nares patent. No nasal discharge, no septal abnormalities noted. Tympanic membranes are normal and external auditory canals are clear. Oropharynx with no redness, swelling, or masses, exudates, or evidence of obstruction, uvula midline. Mucous membranes moist. Neck: Trachea midline, no thyromegaly or masses palpated, and no cervical lymphadenopathy. Supple, full range of motion without nuchal rigidity, or vertebral point tenderness. No Meningismus. Chest/axilla: Normal chest wall appearance and motion. Nontender with no deformity. No lesions are appreciated. Cardiovascular: Regular rate and rhythm with a normal S1 and S2. No gallops, murmurs, or rubs. Normal PMI, no JVD. No pulse deficits. Respiratory: Lungs have equal breath sounds bilaterally, clear to auscultation and percussion. No rales, rhonchi or wheezes noted. No increased work of breathing, no retractions or nasal flaring. Abdomen/GI: Soft, non-tender, with normal bowel sounds. No distension or tympany. No guarding or rebound. No evidence of tenderness throughout. Back: No spinal tenderness. No costovertebral tenderness. Full range of motion. 13:00 Musculoskeletal/extremity: Extremities: grossly normal except: right bka and left great toe amputation. 13:00 Skin: cellulitis, circumferential cellulitis present to left barriga and calf. Skin intact without any drainage. Dorsal aspect of left 2nd toe with dry gangrene present. No drainage or purulence present from 2nd left toe. 13:00 Neuro: Orientation: is normal, Motor: is normal, moves all fours. Vital Signs: 12:27 BP 156 / 65; Pulse 94; Resp 18; Temp 98.1(O); Pulse Ox 97% on 3 lpm NC; Weight 97.98 em kg; Height 6 ft. 0 in. (182.88 cm); Pain 8/10; 14:00 BP 142 / 62; Pulse 90; Resp 18; Pulse Ox 100% on 3 lpm NC; em 15:00 BP 137 / 67; Pulse 85; Resp 18; Pulse Ox 99% on 3 lpm NC; em 16:00 BP 166 / 76; Pulse 91; Resp 20; Pulse Ox 97% on 3 lpm NC; Pain 4/10; em 17:34 BP 147 / 72; Pulse 89; Resp 18; Temp 97.8(O); Pulse Ox 98% on 3 lpm NC; Pain 0/10; em 12:27 Body Mass Index 29.29 (97.98 kg, 182.88 cm) em MDM: 12:25 Patient medically screened. pm1 15:10 Data reviewed: vital signs. Data interpreted: Pulse oximetry: on room air is 100 %. pm1 Interpretation: normal. Physician consultation: Cordell Herrera MD was called at 15:10, was contacted at 15:10, regarding admission, patient's condition, would like consultation with Cardiology, Place patient in observation, cover with antibiotics, Arterial Doppler study today and consult with cardiology. No consultation with general surgery at the moment. 08/04 12:36 Order name: Basic Metabolic Panel; Complete Time: 14:36 pm1 08/04 12:36 Order name: Blood Culture Adult (2) pm1 08/04 12:36 Order name: CBC with Diff; Complete Time: 14:36 pm1 08/04 12:36 Order name: Lactate; Complete Time: 14:36 pm1 08/04 12:36 Order name: LFT's; Complete Time: 14:36 pm1 08/04 12:36 Order name: Procalcitonin; Complete Time: 14:59 pm1 08/04 12:36 Order name: Protime (+inr); Complete Time: 14:36 pm1 08/04 12:36 Order name: Ptt, Activated; Complete Time: 14:36 pm1 08/04 12:36 Order name: Urine Microscopic Only; Complete Time: 15:36 pm1 08/04 14:50 Order name: Urine Dipstick--Ancillary (enter results); Complete Time: 14:59 ag 08/04 15:37 Order name: Basic Metabolic Panel EDMS 08/04 15:37 Order name: Basic Metabolic Panel EDMS 08/04 15:37 Order name: CBC with Automated Diff EDMS 08/04 15:37 Order name: CBC with Automated Diff EDMS 08/04 12:36 Order name: Labs collected and sent; Complete Time: 13:47 pm1 08/04 12:36 Order name: Urine Dipstick-Ancillary (obtain specimen); Complete Time: 13:47 pm1 08/04 12:36 Order name: Extremity Venous Uni Ltd ; Complete Time: 14:59 pm1 08/04 12:38 Order name: Tib Fib Left XRAY; Complete Time: 14:36 pm1 08/04 12:38 Order name: Foot Left 3 View XRAY; Complete Time: 14:36 pm1 08/04 15:18 Order name: Lower Extremity Artery Uni Ltd pm1 08/04 15:37 Order name: Consistent Carb (ADA) 1800 David EDMS Administered Medications: 15:19 Drug: Zosyn 3.375 grams Route: IVPB; Infused Over: 60 mins; Site: left forearm; em 16:30 Follow up: Response: No adverse reaction; IV Status: Completed infusion; IV Intake: em 100ml 17:06 Drug: vancoMYCIN 1 grams Route: IVPB; Infused Over: 2 hrs; Site: left forearm; em 18:20 Follow up: Response: No adverse reaction; IV Status: Infusion continued upon admission; em IV Intake: 125ml Disposition: 08/04/18 15:17 Hospitalization ordered by Cordell Herrera for Observation. Preliminary diagnosis are Cellulitis of left lower limb, Gangrene, not elsewhere classified - 2nd left toe. - Bed requested for Telemetry/MedSurg (observation). - Status is Observation. em - Condition is Stable. - Problem is new. - Symptoms have improved. UTI on Admission? No Addendum: 08/08/2018 08:03 Co-signature as Attending Physician, Serge Guallpa MD I agree with the assessment and c sandoval plan of care. Signatures: Dispatcher [employer] EDNJ Alice Berry RN RN dw Anderson, Corey, MD MD cha Munoz, Edgar, DIAMOND SIZER AND GRADER DIAMOND SI[employer]ER AND GRADER em Nelia Bertrand Patrick, CLAIRE SERVICE COUNSELOR pm1 Corrections: (The following items were deleted from the chart) 08/04 15:26 15:10 Physician consultation: Cordell Herrera MD was called at 15:10, was contacted at pm1 15:10, regarding admission, patient's condition, would like consultation with Cardiology, Place patient in observation, cover with antibiotics, Arterial Doppler study and consult with cardiology. No consultation with general surgery at the moment, pm1 16:58 15:17 Hospitalization Ordered by Cordell Herrera MD for Observation. Preliminary diagnosis dw is Cellulitis of left lower limb; Gangrene, not elsewhere classified - 2nd left toe. Bed requested for Telemetry/MedSurg (observation). Status is Observation. Condition is Stable. Problem is new. Symptoms have improved. UTI on Admission? No. pm1 17:44 16:58 08/04/2018 15:17 Hospitalization Ordered by Cordell Herrera MD for Observation. ag Preliminary diagnosis is Cellulitis of left lower limb; Gangrene, not elsewhere classified - 2nd left toe. Bed requested for Telemetry/MedSurg (observation). Status is Observation. Condition is Stable. Problem is new. Symptoms have improved. UTI on Admission? No. dw 18:40 17:44 08/04/2018 15:17 Hospitalization Ordered by Cordell Herrera MD for Observation. em Preliminary diagnosis is Cellulitis of left lower limb; Gangrene, not elsewhere classified - 2nd left toe. Bed requested for Telemetry/MedSurg (observation). Status is Observation. Condition is Stable. Problem is new. Symptoms have improved. UTI on Admission? No. ag
[2018-08-04] MEDS ORDERED: PIPER/TAZO/NS 3.375gm 3.375 GM/100 ML BAG ONE (15:21)
[2018-08-04] MEDS ORDERED: VANCOMYCIN 1 GM/250 ML BAG ONE (15:21)
[2018-08-04 15:24] LABS: Urine Bacteria NONE SEEN /HPF (NONE SEEN); Urine Culture Reflex Order NOT NEEDED; Urine RBC <5 /HPF (NONE SEEN)
[2018-08-04] MEDS ORDERED: ACETAMINOPHEN 500 MG TAB PO PRN (15:29)
[2018-08-04] MEDS ORDERED: GLUCAGON 1 MG/VIAL IM PRN (15:29)
[2018-08-04] MEDS ORDERED: D50W 25 GM/50 ML SYRINGE IV PRN (15:29)
[2018-08-04] MEDS: INSULIN -REGULAR HUMAN 50 UNIT/0.5 ML ML SQ SCH ×2 (16:30→21:15)
--- NOTE | 2018-08-04 18:49 | RAD REPORT ---
EXAM DESCRIPTION: US - Lower Extremity Artery Uni Ltd - 08/04/2018 5:18 pm CLINICAL HISTORY: Leg pain. Gangrene left toe FINDINGS: Waveforms of the left common femoral and eft superficial femoral arteries are triphasic Waveform of the left popliteal artery is biphasic. Waveforms of the , left posterior tibial and left dorsalis pedis arteries are monophasic Mild calcifications are present within the proximal and mid arteries. Moderate calcifications are pre sent within the distal left lower extremity arteries IMPRESSION: Mild disease involving the proximal and mid arteries of the left lower extremity Moderate disease involving the distal arteries of the left lower extremity
[2018-08-04 21:35] VITALS: BMI 29.2
[2018-08-05] MEDS: PIPER/TAZO/NS 3.375gm 3.375 GM/100 ML BAG IVPB SCH ×3 (00:38→17:59)
[2018-08-05 06:17] LABS: Absolute Lymphocytes (CBC) 0.8 K/uL (0.7-4.9); Absolute Monocytes 0.4 K/uL (0.1-1.3); Absolute Neutrophil 6.4 K/uL (1.8-8.0); Basophils % 0.6 % (0-1.3); Eosinophils % 4.2 % (0-4.4); Hematocrit 29.2 % (39.6-49.0); Lymphocytes % 10.5 % (15.3-44.8); MPV 8.4 fL (7.6-11.3); Monocytes % 5.2 % (3.3-12.3); RBC Red Blood Cell Count 3.29 M/uL (4.33-5.43)
[2018-08-05 06:33] LABS: Potassium 4.1 mmol/L (3.5-5.1)
[2018-08-05 09:17] LABS: Urine Appearance CLEAR; Urine Bilirubin NEGATIVE (NEG); Urine Blood NEGATIVE (NEG); Urine Color YELLOW; Urine Glucose TRACE (NEG); Urine Protein 1+ (NEG); Urine Urobilinogen 0.2 mg/dL (0.2-1.0)
[2018-08-05 09:22] LABS: Urine Microscopic Reflex ORDER UMIC
[2018-08-05 09:33] LABS: Urine Bacteria <20 /HPF (NONE SEEN); Urine Culture Reflex Order NOT NEEDED; Urine RBC <5 /HPF (NONE SEEN)
[2018-08-05] MEDS: INSULIN -REGULAR HUMAN 50 UNIT/0.5 ML ML SQ SCH ×4 (09:54→22:04)
[2018-08-05] MEDS: IPRATROPIUM BROM 0.5MG/2.5ML NEB PRN ×2 (13:30→20:02)
[2018-08-05] MEDS: ALBUTEROL 2.5 MG/3 ML NEB SOL IH PRN ×2 (13:30→20:02)
[2018-08-05] MEDS: VANCOMYCIN 1.75 GM in NA CHLORIDE 0.9% 500 ML IV SCH (15:00)
[2018-08-05] MEDS: GABAPENTIN 100 MG CAP PO SCH ×2 (15:09→21:51)
[2018-08-05] MEDS: HOME MED 1 EA UNK (Budesonide/Formoterol Fumarate [Symbicort 160-4.5 Mcg Inhaler] 2 PUFF) IH SCH (21:00)
[2018-08-05] MEDS: SOTALOL HCL 80 MG TAB PO SCH (21:52)
[2018-08-05] MEDS: APIXABAN 5 MG TABLET PO SCH (21:53)
[2018-08-05] MEDS: DOCUSATE NA 100 MG CAP PO SCH (21:53)
[2018-08-05] MEDS: FUROSEMIDE 40 MG TABLET PO SCH (21:54)
--- NOTE | 2018-08-05 22:38 | CON ---
Date of Consultation: 08/05/2018 Reason For Consultation: Peripheral arterial disease and cardiac clearance. History Of Present Illness: Mr. Burden is a 73-year-old white male, has a history of diabetes, hypert ension, dyslipidemia, depression, Crohn disease, congestive heart failure, COPD, atrial fibrillation. He came in with a left foot gangrene. Arterial Doppler showed diffuse disease with no focal stenosi s mostly below the knee. There is a plan for a possible amputation around the metatarsal area and we were asked for clearance. The patient denied any cardiac symptoms at this point. His symptoms as f ar as his first concern have been going on for couple of weeks. Allergies: NONE. Review of Systems: Negative. Social History: Positive for tobacco. Family History: Positive for diabetes and heart disease. Medications: Include Proscar, Neurontin, losartan, Imdur, Lopressor, magnesium, Protonix, Lasix, ins ulin, Lipitor, aspirin, Eliquis, and inhalers. Physical Examination: General: Mr. Burden is obese, in no acute distress. Vital Signs: Blood pressure is 160/76, sinus rhythm, afebrile. HEENT: Negative. Neck: Supple with no bruit, lymphadenopathy, JVD, or thyromegaly. Chest: Clear to auscultation and percussion. Cardiac: Revealed a regular rhythm and rate with an S4 gallop. No murmurs or rubs. Abdomen: Obese but benign. Extremities: Revealed no clubbing, cyanosis. He had a gangrenous left f oot. Pulses were actually present in the dorsalis pedis and posterior tibial bilaterally. Skin: Dry and intact. Neurological: He seemed to be nonfocal. Diagnostic Data: His glucose was 234, creatinine is 1.49, hemoglobin 9.7. Echocardiogram and caroti d Doppler in september of 2017 were fairly unremarkable. Chest x-ray is negative. EKG is nonspecific. Impression And Plan: 1.Severe peripheral arterial disease, mostly the diffuse plaquing below the knee. He has dorsalis p shira and posterior tibial present. He is not a candidate for angiography because there is no focal s tenosis. I think the Eliquis needs to be held prior to his amputation. He is clear from a cardiac s tandpoint for his amputation. After surgery is done, certainly using Trental on him may be reasonabl e. He has a history of congestive heart failure and Pletal is contraindicated. We will follow him a long. 2.History of congestive heart failure that is chronic systolic that is stable. 3.History of atrial fibrillation that has resolved on sotalol and Eliquis. 4.Chronic obstructive pulmonary disease. 5.Crohn disease. 6.Depression. 7.Diabetes. 8.Hypertension, moderately well controlled. 9.Dyslipidemia, on Lipitor. 10.Gastroesophageal reflux disease on Protonix. 11.Diabetic neuropathy on Neurontin. 12.Benign prostatic hypertrophy, on Proscar. 13.No cardiac workup is necessary prior to the clearance on Mr. Burden. We will follow him along. ОЛЕГ/IVORY Voice ID: [id number] Report ID: [id number]
[2018-08-06] MEDS: PIPER/TAZO/NS 3.375gm 3.375 GM/100 ML BAG IVPB SCH ×3 (00:59→17:00)
--- NOTE | 2018-08-06 03:44 | HP ---
Date of Admission: 08/04/2018 Chief Complaint: Gangrene, toe. History Of Present Illness: A 73-year-old male was brought to the emergency room because of pain and swelling of the leg. He was found to have evidence of cellulitis and gangrene of the toe . The patient denied any history of injury. Past Medical History: Extensive and includes type 2 diabetes requiring insulin, congestive heart sana lure, chronic atrial fibrillation, hypertension, hyperlipidemia, anxiety, depression, COPD. Family History: Diabetes present. Personal History: Currently nonsmoker. Home Medicines: Please refer to the chart. Allergies: THE PATIENT HAS NO KNOWN DRUG ALLERGIES. Review of Systems: No history of fever, chills, rigors. Physical Examination: General: Revealed a 73-year-old male. Vital Signs: Afebrile. HEENT: Negative. Neck: Supple. JVD negative. Chest: Few scattered wheezes. Heart: Irregularity noted. Abdomen: Soft. Extremities: Evidence of leg amputation. The second toe on the side is gangre nous. Pedal pulses absent. Laboratory Data: White count normal. Assessment: 1.Gangrened toe. 2.Peripheral vascular disease. 3.Possible infection causing pain. 4.Type 2 diabetes requiring insulin. 5.Congestive heart failure. 6.Chronic obstructive pulmonary disease. 7.Hyperlipidemia. 8.Chronic atrial fibrillation. 9.Anxiety and depression. Plan: The patient is started on IV antibiotic and Doppler studies have been ordered. The issue is w hether the patient would be a candidate for vascular intervention, either angioplasty or surgery. Ca rdiology consultation has been done towards that end. The patient very likely will need amputation o f the toe. ZAIRA/IVORY Voice ID: [id number]
[2018-08-06] MEDS: INSULIN -REGULAR HUMAN 50 UNIT/0.5 ML ML SQ SCH ×4 (07:30→20:50)
[2018-08-06] MEDS: ALBUTEROL 2.5 MG/3 ML NEB SOL IH PRN ×2 (08:36→21:30)
[2018-08-06] MEDS: IPRATROPIUM BROM 0.5MG/2.5ML NEB PRN ×2 (08:36→21:30)
[2018-08-06] MEDS: HOME MED 1 EA UNK (Budesonide/Formoterol Fumarate [Symbicort 160-4.5 Mcg Inhaler] 2 PUFF) IH SCH ×2 (09:00→21:00)
[2018-08-06] MEDS: LOSARTAN POTASSIUM 50 MG TABLET PO SCH (09:20)
[2018-08-06] MEDS: FINASTERIDE 5 MG TAB PO SCH (09:21)
[2018-08-06] MEDS: METOPROLOL TAR 50 MG TAB PO SCH (09:21)
[2018-08-06] MEDS: POTASSIUM CL SA 10 MEQ TAB PO SCH (09:21)
[2018-08-06] MEDS: SERTRALINE HCL 100 MG TAB PO SCH (09:21)
[2018-08-06] MEDS: BUDESONIDE, MICRONIZED 3 MG CAP PO SCH (09:21)
[2018-08-06] MEDS: MAGNESIUM OXIDE 400 MG TAB PO SCH (09:21)
[2018-08-06] MEDS: DOCUSATE NA 100 MG CAP PO SCH ×2 (09:22→20:49)
[2018-08-06] MEDS: APIXABAN 5 MG TABLET PO SCH ×2 (09:22→20:49)
[2018-08-06] MEDS: ASPIRIN 81 MG CHEWABLE TABLET PO SCH (09:22)
[2018-08-06] MEDS: GABAPENTIN 100 MG CAP PO SCH ×3 (09:22→20:48)
[2018-08-06] MEDS: SOTALOL HCL 80 MG TAB PO SCH ×2 (09:22→20:49)
[2018-08-06] MEDS: ISOSORBIDE MONO SR 60 MG TAB PO SCH (09:22)
[2018-08-06] MEDS: INSULIN GLARGINE 100 UNITS/ML SQ SCH (09:23)
[2018-08-06] MEDS: PANTOPRAZOLE 40MG TABLET PO SCH (09:23)
[2018-08-06] MEDS: ATORVASTATIN 40 MG TAB PO SCH ×2 (09:34→20:49)
[2018-08-06] MEDS: VANCOMYCIN 1.75 GM in NA CHLORIDE 0.9% 500 ML IV SCH (15:44)
--- NOTE | 2018-08-06 18:52 | CON ---
Date of Consultation: 08/06/2018 Diagnosis: Left second toe gangrene. History Of Present Illness: This is the case of a 73-year-old patient, known by the Surgical Service before due to history of severe peripheral vascular disease. We even had to do an amputation below the knee in the past on him on the right side. Now, he comes with left toe gangrene, second one; #1 was already amputated previously. He has been rubbing that area. He says it is difficult sometimes just to keep protect it. He noticed the black tissue in it and came to the ER with some cellulitis a nd gangrene, and a Surgical consult was obtained for amputation. Past Medical History: Includes peripheral vascular disease, heart disease. Allergies: NONE. Medications: Reviewed. Past Surgical History: Multiple amputations. See previous consult. Review of Systems: Ten points, otherwise unremarkable. Physical Examination: General: The patient is awake and alert. HEENT: Pupils anicteric. Chest: Clear. Abdomen: Soft and depressible. Nontender, distended. Rectal: Deferred. Extremities: The patient has a right [id number] amputation, well healed. The patient has a left second toe gangrene with cellulitis present. Peripheral pulses dorsalis pedis diminished. This is a chronic condition for him. Medical Problems: As above. Laboratory Data: He does not smoke. He does not drink alcohol. Family History: Diabetes. Laboratory Data: WBC count of 8.1, hemoglobin of 9.7. INR 1.03. Glucose is 319. Foot x-ray interp reted by Dr. Hamilton as no fracture, no dislocation. Venous Doppler interpreted by Dr. Hamilton as no evidence of DVTs in the left lower extremity. X-rays of tibia and fibula show no fracture. Arteria l Doppler shows disease involving the proximal and mid arteries of the left lower extremity. Moderat e disease involving the distal arteries of the left lower extremity. Assessment: This is a 73-year-old patient with a gangrene of left toe. The patient needs an amputat ion. The patient has cellulitis. Most likely we will be doing wound care after this. The benefits, alternatives, and risks of amputation were fully explained, which include, but are not limited to, i nfection, bleeding, damage to adjacent structures, anesthesia complication, nonhealing of wound, [place], and even . He also understands this may not relieve any symptoms. He might need more than one surgical intervention. He might even need higher amputation, although he is not ready for that yet p ersonally by him. He understands the importance of compliance with diabetes control and wound care a fter this. The patient is eating right now. We are going to keep him n.p.o. after midnight and proc eed accordingly. BEST/IVORY Voice ID: [id number] Report ID: [id number]
[2018-08-06] MEDS: FUROSEMIDE 40 MG TABLET PO SCH (20:48)
--- NOTE | 2018-08-06 22:54 | PN ---
The patient has been seen by surgical service and he is scheduled for amputation of the toe. Meandomingo asif, he will be continued on the same medication. Cardiology clearance has been given. ZAIRA/IVORY Voice ID: [id number] Report ID: [id number]
[2018-08-07] MEDS: PIPER/TAZO/NS 3.375gm 3.375 GM/100 ML BAG IVPB SCH ×3 (01:00→16:37)
[2018-08-07] MEDS ORDERED: PROPOFOL 200 MG/20 ML VIAL IV ONE (07:31)
[2018-08-07] MEDS ORDERED: MIDAZOLAM HCL 2 MG/2 ML INJ ONE (07:32)
[2018-08-07] MEDS ORDERED: LIDOCAINE 2% MPF 5 ML VIAL ONE (07:32)
[2018-08-07] MEDS ORDERED: ONDANSETRON 4 MG/2 ML VIAL ONE (07:32)
[2018-08-07] MEDS ORDERED: FENTANYL CITR 100 MCG/2 ML ONE (07:32)
[2018-08-07] MEDS ORDERED: NA CHLORIDE 0.9% 1,000 ML ONE (07:47)
[2018-08-07] MEDS: HOME MED 1 EA UNK (Budesonide/Formoterol Fumarate [Symbicort 160-4.5 Mcg Inhaler] 2 PUFF) IH SCH ×2 (09:00→21:00)
[2018-08-07] MEDS: METOPROLOL TAR 50 MG TAB PO SCH (09:49)
[2018-08-07] MEDS: POTASSIUM CL SA 10 MEQ TAB PO SCH (09:49)
[2018-08-07] MEDS: PANTOPRAZOLE 40MG TABLET PO SCH (09:49)
[2018-08-07] MEDS: ASPIRIN 81 MG CHEWABLE TABLET PO SCH (09:50)
[2018-08-07] MEDS: APIXABAN 5 MG TABLET PO SCH ×2 (09:50→21:44)
[2018-08-07] MEDS: FINASTERIDE 5 MG TAB PO SCH (09:50)
[2018-08-07] MEDS: GABAPENTIN 100 MG CAP PO SCH ×3 (09:50→21:44)
[2018-08-07] MEDS: MAGNESIUM OXIDE 400 MG TAB PO SCH (09:51)
[2018-08-07] MEDS: ISOSORBIDE MONO SR 60 MG TAB PO SCH (09:51)
[2018-08-07] MEDS: BUDESONIDE, MICRONIZED 3 MG CAP PO SCH (09:51)
[2018-08-07] MEDS: LOSARTAN POTASSIUM 50 MG TABLET PO SCH (09:51)
[2018-08-07] MEDS: DOCUSATE NA 100 MG CAP PO SCH ×2 (09:51→21:45)
[2018-08-07] MEDS: SOTALOL HCL 80 MG TAB PO SCH ×2 (09:51→21:47)
[2018-08-07] MEDS: SERTRALINE HCL 100 MG TAB PO SCH (09:51)
[2018-08-07] MEDS: INSULIN GLARGINE 100 UNITS/ML SQ SCH (09:52)
[2018-08-07] MEDS: INSULIN -REGULAR HUMAN 50 UNIT/0.5 ML ML SQ SCH ×4 (09:52→21:49)
[2018-08-07] MEDS: VANCOMYCIN 1.75 GM in NA CHLORIDE 0.9% 500 ML IV SCH (16:37)
--- NOTE | 2018-08-07 18:40 | OP ---
Date of Procedure: 08/07/2018 Surgeon: Jose Espinal MD Preoperative Diagnoses: Left second toe cellulitis, left foot cellulitis, and left second toe gangre ne. Postoperative Diagnoses: Left second toe cellulitis, left foot cellulitis, and left second toe gangr new. Procedure: Left second toe amputation. Anesthesia: General plus local. Specimens: Toe. Indications For Procedure: This is the case of a 73-year-old patient with known peripheral vascular disease, multiple amputations in the past, and now here with gangrene of the left second toe and cell ulitis of that foot. Amputation was request. The benefits, alternatives, and risks of amputation of that toe fully explained, which include but are not limited to infection, bleeding, damage to adjace nt structures, anesthesia complication, nonhealing of wound, [place], and even . He also understands this may not relieve any symptoms. He might need more than one surgical intervention and he may nee d a higher amputation. He understands importance of diabetes compliance, diet, and medications, and wound care. He signed a consent. The patient brought to the operating room, placed in supine positi on. Anesthesia was done without complication. A time-out was called. Left foot was prepped and que ped in a sterile fashion. An incision was made on the base of the first toe. Amputation was done at the metatarsophalangeal joint, and the cartilage was also excoriated of the metatarsal head. The to e was sent for pathology. The area was irrigated. The area was packed with wet-to-dry dressing. The patient tolerated the procedure well. The patient was sent to Recovery in stable condition. BEST/IVORY Voice ID: [id number] Report ID: [id number]
[2018-08-07] MEDS: ALBUTEROL 2.5 MG/3 ML NEB SOL IH PRN (20:51)
[2018-08-07] MEDS: IPRATROPIUM BROM 0.5MG/2.5ML NEB PRN (20:52)
[2018-08-07] MEDS: FUROSEMIDE 40 MG TABLET PO SCH (21:45)
[2018-08-07] MEDS: ATORVASTATIN 40 MG TAB PO SCH (21:48)
[2018-08-08] MEDS: PIPER/TAZO/NS 3.375gm 3.375 GM/100 ML BAG IVPB SCH ×4 (00:17→17:11)
--- NOTE | 2018-08-08 02:24 | PN ---
The patient is postoperative amputation of the toe. The patient had no complications during surgery. His vital signs are stable. He has mild wheezing bilaterally. Otherwise, same management will be continued. ZAIRA/IVORY Voice ID: [id number] Report ID: [id number]
[2018-08-08] MEDS: INSULIN -REGULAR HUMAN 50 UNIT/0.5 ML ML SQ SCH ×4 (07:30→20:13)
[2018-08-08] MEDS: HOME MED 1 EA UNK (Budesonide/Formoterol Fumarate [Symbicort 160-4.5 Mcg Inhaler] 2 PUFF) IH SCH ×2 (09:00→20:54)
[2018-08-08] MEDS: INSULIN GLARGINE 100 UNITS/ML SQ SCH (09:25)
[2018-08-08] MEDS: BUDESONIDE, MICRONIZED 3 MG CAP PO SCH (09:26)
[2018-08-08] MEDS: ASPIRIN 81 MG CHEWABLE TABLET PO SCH (09:26)
[2018-08-08] MEDS: APIXABAN 5 MG TABLET PO SCH ×2 (09:27→20:14)
[2018-08-08] MEDS: POTASSIUM CL SA 10 MEQ TAB PO SCH (09:27)
[2018-08-08] MEDS: MAGNESIUM OXIDE 400 MG TAB PO SCH (09:27)
[2018-08-08] MEDS: SERTRALINE HCL 100 MG TAB PO SCH (09:27)
[2018-08-08] MEDS: SOTALOL HCL 80 MG TAB PO SCH ×2 (09:27→20:13)
[2018-08-08] MEDS: PANTOPRAZOLE 40MG TABLET PO SCH (09:27)
[2018-08-08] MEDS: FINASTERIDE 5 MG TAB PO SCH (09:27)
[2018-08-08] MEDS: ISOSORBIDE MONO SR 60 MG TAB PO SCH (09:28)
[2018-08-08] MEDS: DOCUSATE NA 100 MG CAP PO SCH ×2 (09:28→20:14)
[2018-08-08] MEDS: METOPROLOL TAR 50 MG TAB PO SCH (09:28)
[2018-08-08] MEDS: LOSARTAN POTASSIUM 50 MG TABLET PO SCH (09:28)
[2018-08-08] MEDS: GABAPENTIN 100 MG CAP PO SCH ×3 (09:28→20:14)
[2018-08-08] MEDS: IPRATROPIUM BROM 0.5MG/2.5ML NEB PRN ×2 (11:16→21:33)
[2018-08-08] MEDS: ALBUTEROL 2.5 MG/3 ML NEB SOL IH PRN ×2 (11:16→21:33)
[2018-08-08] MEDS: FUROSEMIDE 40 MG TABLET PO SCH (20:14)
[2018-08-08] MEDS: ATORVASTATIN 40 MG TAB PO SCH (20:14)
[2018-08-09] MEDS ORDERED: VANCOMYCIN 1.75 GM in NA CHLORIDE 0.9% 500 ML IV SCH ×2
--- NOTE | 2018-08-09 02:18 | PN ---
The patient is afebrile. His wound culture showed MRSA, sensitive to Bactrim and doxycycline. The p atient has minimal wheezing. Otherwise, he is stable. ZAIRA/IVORY Voice ID: [id number] Report ID: [id number]
[2018-08-09] MEDS: INSULIN -REGULAR HUMAN 50 UNIT/0.5 ML ML SQ SCH ×4 (07:30→21:00)
[2018-08-09] MEDS: ALBUTEROL 2.5 MG/3 ML NEB SOL IH PRN ×3 (07:36→20:20)
[2018-08-09] MEDS: IPRATROPIUM BROM 0.5MG/2.5ML NEB PRN ×3 (07:36→20:20)
[2018-08-09] MEDS: HOME MED 1 EA UNK (Budesonide/Formoterol Fumarate [Symbicort 160-4.5 Mcg Inhaler] 2 PUFF) IH SCH ×2 (09:00→21:00)
[2018-08-09] MEDS: BUDESONIDE, MICRONIZED 3 MG CAP PO SCH (09:46)
[2018-08-09] MEDS: INSULIN GLARGINE 100 UNITS/ML SQ SCH (09:46)
[2018-08-09] MEDS: DOCUSATE NA 100 MG CAP PO SCH ×2 (09:47→21:30)
[2018-08-09] MEDS: LOSARTAN POTASSIUM 50 MG TABLET PO SCH (09:47)
[2018-08-09] MEDS: SOTALOL HCL 80 MG TAB PO SCH ×2 (09:47→21:31)
[2018-08-09] MEDS: POTASSIUM CL SA 10 MEQ TAB PO SCH (09:47)
[2018-08-09] MEDS: ASPIRIN 81 MG CHEWABLE TABLET PO SCH (09:47)
[2018-08-09] MEDS: GABAPENTIN 100 MG CAP PO SCH ×3 (09:47→21:30)
[2018-08-09] MEDS: PANTOPRAZOLE 40MG TABLET PO SCH (09:48)
[2018-08-09] MEDS: ISOSORBIDE MONO SR 60 MG TAB PO SCH (09:48)
[2018-08-09] MEDS: APIXABAN 5 MG TABLET PO SCH ×2 (09:48→21:30)
[2018-08-09] MEDS: SERTRALINE HCL 100 MG TAB PO SCH (09:48)
[2018-08-09] MEDS: FINASTERIDE 5 MG TAB PO SCH (09:48)
[2018-08-09] MEDS: DOXYCYCLINE 100 MG CAP PO SCH ×2 (09:48→21:30)
[2018-08-09] MEDS: METOPROLOL TAR 50 MG TAB PO SCH (09:48)
[2018-08-09] MEDS: MAGNESIUM OXIDE 400 MG TAB PO SCH (09:48)
[2018-08-09] MEDS: ATORVASTATIN 40 MG TAB PO SCH (21:30)
[2018-08-09] MEDS: FUROSEMIDE 40 MG TABLET PO SCH (21:31)
[2018-08-10] MEDS: INSULIN -REGULAR HUMAN 50 UNIT/0.5 ML ML SQ SCH ×4 (07:30→21:04)
[2018-08-10] MEDS: HOME MED 1 EA UNK (Budesonide/Formoterol Fumarate [Symbicort 160-4.5 Mcg Inhaler] 2 PUFF) IH SCH ×2 (09:00→21:00)
[2018-08-10] MEDS: DOXYCYCLINE 100 MG CAP PO SCH ×2 (09:58→20:55)
[2018-08-10] MEDS: FINASTERIDE 5 MG TAB PO SCH (09:58)
[2018-08-10] MEDS: POTASSIUM CL SA 10 MEQ TAB PO SCH (09:58)
[2018-08-10] MEDS: DOCUSATE NA 100 MG CAP PO SCH ×2 (09:58→20:55)
[2018-08-10] MEDS: PANTOPRAZOLE 40MG TABLET PO SCH (09:58)
[2018-08-10] MEDS: ISOSORBIDE MONO SR 60 MG TAB PO SCH (09:58)
[2018-08-10] MEDS: ASPIRIN 81 MG CHEWABLE TABLET PO SCH (09:59)
[2018-08-10] MEDS: APIXABAN 5 MG TABLET PO SCH ×2 (09:59→20:55)
[2018-08-10] MEDS: METOPROLOL TAR 50 MG TAB PO SCH (09:59)
[2018-08-10] MEDS: SOTALOL HCL 80 MG TAB PO SCH ×2 (09:59→20:54)
[2018-08-10] MEDS: BUDESONIDE, MICRONIZED 3 MG CAP PO SCH (09:59)
[2018-08-10] MEDS: MAGNESIUM OXIDE 400 MG TAB PO SCH (09:59)
[2018-08-10] MEDS: LOSARTAN POTASSIUM 50 MG TABLET PO SCH (09:59)
[2018-08-10] MEDS: GABAPENTIN 100 MG CAP PO SCH ×3 (10:00→20:55)
[2018-08-10] MEDS: SERTRALINE HCL 100 MG TAB PO SCH (10:00)
[2018-08-10] MEDS: INSULIN GLARGINE 100 UNITS/ML SQ SCH (10:00)
[2018-08-10] MEDS: IPRATROPIUM BROM 0.5MG/2.5ML NEB PRN ×2 (17:04→22:30)
[2018-08-10] MEDS: ALBUTEROL 2.5 MG/3 ML NEB SOL IH PRN ×2 (17:04→22:30)
--- NOTE | 2018-08-10 18:19 | PN ---
The patient is afebrile. The wound does not show any evidence of infection. He is afebrile. He rickey l be continued on the same management. Physical therapy has started ambulation. ZAIRA/IVORY Voice ID: [id number] Report ID: [id number]
[2018-08-10] MEDS: ATORVASTATIN 40 MG TAB PO SCH (20:54)
[2018-08-10] MEDS: FUROSEMIDE 40 MG TABLET PO SCH (20:55)
[2018-08-11] MEDS: IPRATROPIUM BROM 0.5MG/2.5ML NEB PRN (04:35)
[2018-08-11] MEDS: ALBUTEROL 2.5 MG/3 ML NEB SOL IH PRN (04:35)
[2018-08-11] MEDS: INSULIN -REGULAR HUMAN 50 UNIT/0.5 ML ML SQ SCH ×4 (07:30→21:57)
[2018-08-11] MEDS: HOME MED 1 EA UNK (Budesonide/Formoterol Fumarate [Symbicort 160-4.5 Mcg Inhaler] 2 PUFF) IH SCH ×2 (09:00→21:00)
[2018-08-11] MEDS: GABAPENTIN 100 MG CAP PO SCH ×3 (09:36→21:56)
[2018-08-11] MEDS: SOTALOL HCL 80 MG TAB PO SCH ×2 (09:36→21:57)
[2018-08-11] MEDS: DOXYCYCLINE 100 MG CAP PO SCH ×2 (09:36→21:56)
[2018-08-11] MEDS: ISOSORBIDE MONO SR 60 MG TAB PO SCH (09:36)
[2018-08-11] MEDS: FINASTERIDE 5 MG TAB PO SCH (09:36)
[2018-08-11] MEDS: APIXABAN 5 MG TABLET PO SCH ×2 (09:36→21:57)
[2018-08-11] MEDS: ASPIRIN 81 MG CHEWABLE TABLET PO SCH (09:37)
[2018-08-11] MEDS: BUDESONIDE, MICRONIZED 3 MG CAP PO SCH (09:37)
[2018-08-11] MEDS: MAGNESIUM OXIDE 400 MG TAB PO SCH (09:37)
[2018-08-11] MEDS: METOPROLOL TAR 50 MG TAB PO SCH (09:37)
[2018-08-11] MEDS: POTASSIUM CL SA 10 MEQ TAB PO SCH (09:37)
[2018-08-11] MEDS: LOSARTAN POTASSIUM 50 MG TABLET PO SCH (09:37)
[2018-08-11] MEDS: PANTOPRAZOLE 40MG TABLET PO SCH (09:38)
[2018-08-11] MEDS: DOCUSATE NA 100 MG CAP PO SCH ×2 (09:38→21:56)
[2018-08-11] MEDS: SERTRALINE HCL 100 MG TAB PO SCH (09:38)
[2018-08-11] MEDS: INSULIN GLARGINE 100 UNITS/ML SQ SCH (09:38)
[2018-08-11] MEDS: FUROSEMIDE 40 MG TABLET PO SCH (21:57)
[2018-08-11] MEDS: ATORVASTATIN 40 MG TAB PO SCH (22:20)
--- NOTE | 2018-08-11 23:14 | PN ---
The patient is afebrile. He is doing minimal ambulation in the room. I left a message with the [facility] Therapy Department to see whether he would need any devices as he already has amputation of the other leg. Pending that, he will be continued on the same management. ZAIRA/IVORY Voice ID: [id number] Report ID: [id number]
[2018-08-12] MEDS: IPRATROPIUM BROM 0.5MG/2.5ML NEB PRN (02:34)
[2018-08-12] MEDS: ALBUTEROL 2.5 MG/3 ML NEB SOL IH PRN (02:34)
[2018-08-12] MEDS: INSULIN -REGULAR HUMAN 50 UNIT/0.5 ML ML SQ SCH ×4 (07:30→20:37)
[2018-08-12] MEDS: HOME MED 1 EA UNK (Budesonide/Formoterol Fumarate [Symbicort 160-4.5 Mcg Inhaler] 2 PUFF) IH SCH ×2 (09:00→21:00)
[2018-08-12] MEDS: LOSARTAN POTASSIUM 50 MG TABLET PO SCH (10:17)
[2018-08-12] MEDS: APIXABAN 5 MG TABLET PO SCH ×2 (10:17→20:37)
[2018-08-12] MEDS: SOTALOL HCL 80 MG TAB PO SCH ×2 (10:17→20:37)
[2018-08-12] MEDS: BUDESONIDE, MICRONIZED 3 MG CAP PO SCH (10:17)
[2018-08-12] MEDS: DOCUSATE NA 100 MG CAP PO SCH ×2 (10:17→20:36)
[2018-08-12] MEDS: ASPIRIN 81 MG CHEWABLE TABLET PO SCH (10:17)
[2018-08-12] MEDS: ISOSORBIDE MONO SR 60 MG TAB PO SCH (10:18)
[2018-08-12] MEDS: MAGNESIUM OXIDE 400 MG TAB PO SCH (10:18)
[2018-08-12] MEDS: INSULIN GLARGINE 100 UNITS/ML SQ SCH (10:18)
[2018-08-12] MEDS: GABAPENTIN 100 MG CAP PO SCH ×3 (10:18→20:37)
[2018-08-12] MEDS: METOPROLOL TAR 50 MG TAB PO SCH (10:18)
[2018-08-12] MEDS: POTASSIUM CL SA 10 MEQ TAB PO SCH (10:18)
[2018-08-12] MEDS: DOXYCYCLINE 100 MG CAP PO SCH ×2 (10:19→20:36)
[2018-08-12] MEDS: FINASTERIDE 5 MG TAB PO SCH (10:19)
[2018-08-12] MEDS: PANTOPRAZOLE 40MG TABLET PO SCH (10:19)
[2018-08-12] MEDS: SERTRALINE HCL 100 MG TAB PO SCH (10:19)
[2018-08-12 12:28] VITALS: O2SAT 98
[2018-08-12] MEDS: FUROSEMIDE 40 MG TABLET PO SCH (20:36)
[2018-08-12] MEDS: ATORVASTATIN 40 MG TAB PO SCH (20:37)
--- NOTE | 2018-08-12 23:57 | PN ---
The patient is walking with the help to the bathroom. I spoke to him regarding the postdischarge lashonda n. He would rather go home and have physical therapy at home, so he will be discharged tomorrow morn [facility] and physical therapy will be continued along with oral antibiotics. ZAIRA/IVORY Voice ID: [id number] Report ID: [id number]
[2018-08-13] MEDS: ALBUTEROL 2.5 MG/3 ML NEB SOL IH PRN ×2 (05:45)
[2018-08-13] MEDS: IPRATROPIUM BROM 0.5MG/2.5ML NEB PRN ×2 (05:45)
[2018-08-13] MEDS: INSULIN -REGULAR HUMAN 50 UNIT/0.5 ML ML SQ SCH ×2 (07:30→12:23)
[2018-08-13] MEDS: HOME MED 1 EA UNK (Budesonide/Formoterol Fumarate [Symbicort 160-4.5 Mcg Inhaler] 2 PUFF) IH SCH (09:00)
[2018-08-13] MEDS: ASPIRIN 81 MG CHEWABLE TABLET PO SCH (10:46)
[2018-08-13] MEDS: LOSARTAN POTASSIUM 50 MG TABLET PO SCH (10:47)
[2018-08-13] MEDS: DOCUSATE NA 100 MG CAP PO SCH (10:47)
[2018-08-13] MEDS: APIXABAN 5 MG TABLET PO SCH (10:47)
[2018-08-13] MEDS: SOTALOL HCL 80 MG TAB PO SCH (10:47)
[2018-08-13] MEDS: BUDESONIDE, MICRONIZED 3 MG CAP PO SCH (10:47)
[2018-08-13] MEDS: METOPROLOL TAR 50 MG TAB PO SCH (10:48)
[2018-08-13] MEDS: INSULIN GLARGINE 100 UNITS/ML SQ SCH (10:48)
[2018-08-13] MEDS: POTASSIUM CL SA 10 MEQ TAB PO SCH (10:48)
[2018-08-13] MEDS: ISOSORBIDE MONO SR 60 MG TAB PO SCH (10:48)
[2018-08-13] MEDS: PANTOPRAZOLE 40MG TABLET PO SCH (10:49)
[2018-08-13] MEDS: MAGNESIUM OXIDE 400 MG TAB PO SCH (10:49)
[2018-08-13] MEDS: DOXYCYCLINE 100 MG CAP PO SCH (10:49)
[2018-08-13] MEDS: SERTRALINE HCL 100 MG TAB PO SCH (10:49)
[2018-08-13] MEDS: FINASTERIDE 5 MG TAB PO SCH (10:49)
[2018-08-13] MEDS: GABAPENTIN 100 MG CAP PO SCH ×2 (10:49→13:57)
[2018-08-13 12:27] VITALS: BP 146/65; TEMP 97.3
--- NOTE | 2018-08-13 20:34 | PN ---
Date of Progress Note: 08/13/2018 Diagnoses: Peripheral vascular disease, amputation of the toe. History Of Present Illness: The patient is doing well. No complaint. He has completed 1 week of an tibiotics. The patient will be discharged home by the primary doctor today with p.o. antibiotics. S urgical area is intact. Plan: He was advised to come [facility] from now. Wet-to-dry dressing daily , off-load the area, keep it clean and dry, although may clean it with just running water. He unders tands we might have options in the future to close the area with a wound VAC. He understands the imp ortance of going back to his Vascular Surgeon to re-evaluate his peripheral vascular disease to see i f anything have to be done to improve his healing process. He understood. [facility]. We spent over there about 45 minutes to almost an hour discussing all the pros a nd cons, and differential diagnosis of his disease, not only with him but also with his . BEST/IVORY Voice ID: [id number] Report ID: [id number]
== END 2018-08-13 15:07 | disposition home health service (06) | DRG 256 ==
LOC: ER 12:18 → ERHOLD 15:27 → 2ND 18:05 → OBSVTOIN 08-06 13:26
PROVIDERS: ADMIT Internal Medicine; ATTEND Internal Medicine
PROC: 0Y6S0Z0 Detachment at Left 2nd Toe, Complete, Open Approach (ICD-10-PCS; principal; 2018-08-07 07:30)
DX: E11.52 Type 2 diabetes mellitus with diabetic peripheral angiopathy with gangrene (principal); K50.90 Crohn's disease, unspecified, without complications; I50.22 Chronic systolic (congestive) heart failure; L03.116 Cellulitis of left lower limb; I96 Gangrene, not elsewhere classified; I48.91 Unspecified atrial fibrillation; Z79.01 Long term (current) use of anticoagulants; J44.9 Chronic obstructive pulmonary disease, unspecified; I11.0 Hypertensive heart disease with heart failure; F32.9 Major depressive disorder, single episode, unspecified; E78.5 Hyperlipidemia, unspecified; K21.9 Gastro-esophageal reflux disease without esophagitis; N40.0 Benign prostatic hyperplasia without lower urinary tract symptoms; Z89.511 Acquired absence of right leg below knee; Z89.412 Acquired absence of left great toe; B95.62 Methicillin resistant Staphylococcus aureus infection as the cause of diseases classified elsewhere; Z79.4 Long term (current) use of insulin
CPT/HCPCS: 36415; 80048; 80076; 80202; 81003; 81015; 82962; 83605; 84145; 85025; 85610; 85730; 87040; 87070; 87077; 87186; 87205; 88305; 88311; 93926; 93971; 94640; 96365; 96367; 97116; 97162; 97530; 99285; G0378; J2250; J2405; J2543; J2704; J3010; J3370; J7030

== ENCOUNTER 2018-08-26 21:20 | Inpatient (IN) | payer OTHER ==
--- OUTSIDE RECORDS SUMMARY | 2018-08-26 21:21 | XMS REPORT | Clinical Summary ---
:1945 Author Organization [employer] Address [address] [place] [address] Care Team Providers Name Role Phone Asked, [...] Not on file Results Not on fileafter 08/25/2017 Insurance Payer Benefit Plan / Group Subscriber ID Type Phone Address [facility] xxxxxxxxx HMO Advance Directives Patient has advance care planning documents, and code status on file. For more information, please contact:Ari Hernandez[address] [place] [address] Code Status Date Activated Date Inactivated Comments Full Code 05/24/2016 9:28 PM 05/26/2016 4:41 PM Code Status decision reached by: Patient
--- NOTE | 2018-08-26 22:24 | ER ---
Nurse's Notes [facility] Name: Jethro Burden Age: 73 yrs Sex: Male : 1945 Arrival Date: 08/26/2018 Time: 21:22 Bed 8 Private MD: Diagnosis: Cellulitis and acute lymphangitis of other parts of limb;Chronic obstructive pulmonary disease, unspecified;Type 1 diabetes mellitus;Obesity, unspecified;Anemia, unspecified;Atrial fibrillation and flutter-with rvr;Elevated white blood cell count;Unspecified kidney failure;Hypomagnesemia Presentation: 08/26 21:28 Presenting complaint: EMS states: Called for shortness of breath; Patient using home O2 lp1 at 3L via NC; Complaint of redness, pain to left lower leg, amputation of left 2nd toe 3 weeks ago. Transition of care: patient was not received from another setting of care. Onset of symptoms was August 26, 2018. Risk Assessment: Do you want to hurt yourself or someone else? Patient reports no desire to harm self or others. Care prior to arrival: None. 21:28 Method Of Arrival: EMS: [facility] lp1 21:28 Acuity: TAN 3 lp1 08/27 01:11 Initial Sepsis Screen: Does the patient meet any 2 criteria? No. Patient's initial ed1 sepsis screen is negative. Does the patient have a suspected source of infection? No. Patient's initial sepsis screen is negative. Historical: - Allergies: 08/26 21:36 NKDA; lp1 - Home Meds: 21:36 albuterol sulfate 2.5 mg /3 mL (0.083 %) Inhl nebu 3 mL Q4H prn [Active]; apixaban 5 mg lp1 Oral 1 tab 2 times per day [Active]; atorvastatin 80 mg Oral tab 0.5 tab once daily [Active]; budesonide-formoterol inhalation inhalation 2 puffs 2 times per day [Active]; budesonide 3 mg Oral CECX 3 caps once daily [Active]; docusate sodium 100 mg Oral cap 1 cap 2 times per day [Active]; ferrous gluconate 324 mg (36 mg iron) Oral tab twice a day [Active]; finasteride 5 mg Oral tab 1 tab once daily [Active]; furosemide 40 mg Oral tab 3 tabs in am and 2 tabs in pm [Active]; gabapentin 100 mg Oral cap 1 caps 3 times per day [Active]; insulin aspart subcutaneous 35 unit three times a day [Active]; insulin detemir subcutaneous 70 units in am and 45 units in pm [Active]; ipratropium bromide 0.02 % inhalation soln 2.5 mL every 6 hours [Active]; losartan 100 mg Oral tab 1 tab once daily [Active]; metoprolol tartrate 50 mg Oral tab 1 tab once daily [Active]; pantoprazole 40 mg Oral TbEC 1 tab once daily [Active]; potassium chloride 10 mEq Oral cpER 2 caps once daily [Active]; sotalol 120 mg Oral tab 1 tab 2 times per day [Active]; aspirin 81 mg Oral TbEC 1 tab once daily [Active]; magnesium oxide 420 mg Oral tab daily [Active]; - PMHx: 21:36 Atrial Fib; CHF; COPD; Crohn's; Depression; Diabetes - IDDM; Hyperlipidemia; lp1 Hypertension; prostate problems; - PSHx: 21:36 Amputation of left 2nd toe; R BKA; colon resection; Hernia repair; lp1 - Immunization history:: Adult Immunizations up to date. - Social history:: Smoking status: Patient/guardian denies using tobacco, the patient reports quitting approximately 15 years ago. - Ebola Screening: : No symptoms or risks identified at this time. - Family history:: not pertinent. Screenin:36 Abuse screen: Denies threats or abuse. Denies injuries from another. Nutritional lp1 screening: No deficits noted. Tuberculosis screening: No symptoms or risk factors identified. 08/27 01:12 Fall Risk Fall in past 12 months (25 points). No secondary diagnosis (0 pts). IV access ed1 (20 points). Ambulatory Aid- Crutches/Cane/Walker (15 pts). Gait- Impaired (20 pts.). Mental Status- Oriented to own ability (0 pts). Total Strong Fall Scale indicates High Risk Score (45 or more points). Fall prevention measures have been instituted. Side Rails Up X 2 Frequent Obs/Assessments Occuring Family Present and informed to notify staff if the need to leave the bedside As available patient and family educated on Fall Prevention Program and Strategies. Assessment: 08/26 21:40 General: Appears in no apparent distress. Behavior is calm, cooperative. Pain: ed1 Complains of pain in left foot Pain radiates to left leg Pain currently is 8 out of 10 on a pain scale. Quality of pain is described as aching, Pain began 2-3 days ago. Is continuous. Neuro: Level of Consciousness is awake, alert, obeys commands, Oriented to person, place, time, situation, Denies weakness blurred vision dizziness, headache. Cardiovascular: Reports shortness of breath, Denies chest pain, Heart tones S1 S2 present. Respiratory: Reports shortness of breath at rest Airway is patent Respiratory effort is even, unlabored, Respiratory pattern is regular, symmetrical, Breath sounds are clear bilaterally. GI: No signs and/or symptoms were reported involving the gastrointestinal system. : No signs and/or symptoms were reported regarding the genitourinary system. EENT: No signs and/or symptoms were reported regarding the EENT system. Derm: Skin is fragile, is thin, Skin is dry, Skin is normal, Skin temperature is warm Wound noted left foot and left lateral ankle Other: no drainage noted, redness noted to surrounding tissue. Musculoskeletal: Circulation, motion, and sensation intact. 22:40 Reassessment: Patient appears in no apparent distress at this time. No changes from ed1 previously documented assessment. Patient and/or family updated on plan of care and expected duration. Pain level reassessed. Patient is alert, oriented x 3, equal unlabored respirations, skin warm/dry/pink. Patient states symptoms have not improved. 08/27 00:12 Reassessment: Patient appears in no apparent distress at this time. No changes from ed1 previously documented assessment. Patient and/or family updated on plan of care and expected duration. Pain level reassessed. Patient is alert, oriented x 3, equal unlabored respirations, skin warm/dry/pink. Patient states symptoms have not improved. 01:26 Reassessment: Patient appears in no apparent distress at this time. No changes from ed1 previously documented assessment. Patient and/or family updated on plan of care and expected duration. Pain level reassessed. Patient is alert, oriented x 3, equal unlabored respirations, skin warm/dry/pink. Pt requested pain medication for pain in left foot. Vital Signs: 08/26 21:29 BP 154 / 77; Pulse 120; Resp 18; Temp 98.4(O); Pulse Ox 94% on 3 lpm NC; Weight 96.16 lp1 kg; Height 6 ft. 0 in. (182.88 cm); Pain 8/10; 22:40 BP 162 / 98; Pulse 123; Resp 20; Pulse Ox 97% on 3 lpm NC; Pain 8/10; ed1 08/27 00:12 BP 101 / 73; Pulse 111; Resp 20; Pulse Ox 96% on 3 lpm NC; Pain 8/10; ed1 01:26 BP 154 / 70; Pulse 110; Resp 16; Temp 98.2(O); Pulse Ox 96% on 3 lpm NC; Pain 8/10; ed1 02:03 Pain 5/10; ed1 08/26 21:29 Body Mass Index 28.75 (96.16 kg, 182.88 cm) lp1 ED Course: 08/26 21:22 Patient arrived in ED. al2 21:29 Triage completed. lp1 21:29 Arm band placed on right wrist. lp1 21:51 Erica Garg, RN is Primary Nurse. ed1 21:52 Missed attempt(s): 20 gauge in right antecubital area. Bleeding controlled, band aid ed1 applied, catheter tip intact. 21:57 Serge Guallpa MD is Attending Physician. colin 22:05 First set of blood cultures drawn by me. Missed attempt(s): 20 gauge in right upper aa1 arm. Bleeding controlled, band aid applied, catheter tip intact. 22:10 EKG done, by ED staff, reviewed by Serge Guallpa MD. aa1 22:21 Initial lab(s) drawn, by me, sent to lab. Second set of blood cultures drawn by me. aa1 Inserted saline lock: 20 gauge in left upper arm, using aseptic technique. Blood collected. 22:22 Cordell Herrera MD is Hospitalizing Provider. colin 22:28 XRAY Chest (1 view) In Process Unspecified. EDMS 23:10 Lab(s) recollected, by ED staff, sent to lab. Inserted 18 gauge 10 cm midline to right fc upper basilic vein on first attempt by Oc MCKEE. Line with good blood return and flushes well. Pt tolerated it well. 08/27 00:07 Wound care: to ulcers located on left foot, left ankle was cleaned with with NS, ed1 dressed with wet to dry dressing, Patient tolerated well. 00:13 Resting quietly. ed1 00:14 Awaiting bed assignment. ed1 01:11 No provider procedures requiring assistance completed. Patient admitted, IV remains in ed1 place. intact, No redness/swelling at site. 01:12 Patient has correct armband on for positive identification. Placed in gown. Bed in low ed1 position. Side rails up X2. Adult w/ patient. Administered Medications: 08/26 22:45 Drug: NS 0.9% 1000 ml Route: IV; Rate: 125 ml/hr; Site: left upper arm; ed1 08/27 02:04 Follow up: IV Status: Infusion continued upon admission ed1 08/26 22:45 Drug: Zosyn 3.375 grams Route: IVPB; Infused Over: 60 mins; Site: left upper arm; ed1 23:48 Follow up: IV Status: Completed infusion lp1 22:46 Drug: Pepcid 20 mg Route: IVP; Site: left upper arm; ed1 23:37 Follow up: Response: No adverse reaction ed1 23:37 Drug: vancoMYCIN 1 grams Route: IVPB; Infused Over: 2 hrs; Site: right upper arm; ed1 08/27 01:37 Follow up: Response: No adverse reaction; IV Status: Completed infusion ed1 01:24 Drug: Magnesium Sulfate 1 grams Route: IVPB; Infused Over: 1 hrs; Site: left upper arm; ed1 02:03 Follow up: IV Status: Infusion continued upon admission ed1 01:25 Drug: fentaNYL (PF) 25 mcg Route: IVP; Site: left upper arm; ed1 02:03 Follow up: Pain 5/10 Adult; Response: No adverse reaction; Pain is decreased ed1 01:25 Drug: Zofran 4 mg Route: IVP; Site: left upper arm; ed1 02:03 Follow up: Response: No adverse reaction; Nausea is decreased ed1 Outcome: 08/26 22:24 Decision to Hospitalize [facility] 08/27 02:02 Admitted to Med/surg accompanied by nurse, family with patient, via stretcher, room ed1 213, with chart, Report called to RYLEE Wan Condition: stable Discharge instructions given to patient, family, Instructed on the need for admit, Demonstrated understanding of instructions. 02:05 Patient left the ED. ed1 Signatures: Dispatcher [facility] Cynthia Addison RN RN cooper1 Serge Guallpa MD MD cha Chretien, Mary, RN RN fc Erica Garg, RN RN ed1 Consuelo Syed RN RN lp1 Angela Toledo2 Corrections: (The following items were deleted from the chart) 00:14 00:[address] Scan, ed1 ed1
--- NOTE | 2018-08-26 22:25 | EDPHYS ---
Physician Documentation [facility] Name: Jethro Burden Age: 73 yrs Sex: Male : 1945 Arrival Date: 08/26/2018 Time: 21:22 Bed 8 Private MD: ED Physician Serge Guallpa HPI: 08/26 22:10 This 73 yrs old Male presents to ER via EMS with complaints of left lower leg colin red and painful, copd hx. 22:10 The patient presents with pain, that is acute. The complaints affect the lateral aspect colin of left calf, left lateral ankle, lateral aspect of left foot, left calf, left Achilles, left heel, medial aspect of left calf, left medial ankle, medial aspect of left foot, left barriga, anterior aspect of left ankle and dorsum of left foot. Onset: The symptoms/episode began/occurred 3 day(s) ago. Modifying factors: The symptoms are alleviated by nothing. the symptoms are aggravated by nothing. Associated signs and symptoms: Pertinent positives: weakness. The patient has shortness of breath at rest, with light activity, and the patient has a history of COPD, lung disease. Historical: - Allergies: 21:36 NKDA; lp1 - Home Meds: 21:36 albuterol sulfate 2.5 mg /3 mL (0.083 %) Inhl nebu 3 mL Q4H prn [Active]; apixaban 5 mg lp1 Oral 1 tab 2 times per day [Active]; atorvastatin 80 mg Oral tab 0.5 tab once daily [Active]; budesonide-formoterol inhalation inhalation 2 puffs 2 times per day [Active]; budesonide 3 mg Oral CECX 3 caps once daily [Active]; docusate sodium 100 mg Oral cap 1 cap 2 times per day [Active]; ferrous gluconate 324 mg (36 mg iron) Oral tab twice a day [Active]; finasteride 5 mg Oral tab 1 tab once daily [Active]; furosemide 40 mg Oral tab 3 tabs in am and 2 tabs in pm [Active]; gabapentin 100 mg Oral cap 1 caps 3 times per day [Active]; insulin aspart subcutaneous 35 unit three times a day [Active]; insulin detemir subcutaneous 70 units in am and 45 units in pm [Active]; ipratropium bromide 0.02 % inhalation soln 2.5 mL every 6 hours [Active]; losartan 100 mg Oral tab 1 tab once daily [Active]; metoprolol tartrate 50 mg Oral tab 1 tab once daily [Active]; pantoprazole 40 mg Oral TbEC 1 tab once daily [Active]; potassium chloride 10 mEq Oral cpER 2 caps once daily [Active]; sotalol 120 mg Oral tab 1 tab 2 times per day [Active]; aspirin 81 mg Oral TbEC 1 tab once daily [Active]; magnesium oxide 420 mg Oral tab daily [Active]; - PMHx: 21:36 Atrial Fib; CHF; COPD; Crohn's; Depression; Diabetes - IDDM; Hyperlipidemia; lp1 Hypertension; prostate problems; - PSHx: 21:36 Amputation of left 2nd toe; R BKA; colon resection; Hernia repair; lp1 - Immunization history:: Adult Immunizations up to date. - Social history:: Smoking status: Patient/guardian denies using tobacco, the patient reports quitting approximately 15 years ago. - Ebola Screening: : No symptoms or risks identified at this time. - Family history:: not pertinent. ROS: 22:10 Constitutional: Negative for fever, chills, and weight loss, Eyes: Negative for injury, coiln pain, redness, and discharge, ENT: Negative for injury, pain, and discharge, Neck: Negative for injury, pain, and swelling, Abdomen/GI: Negative for abdominal pain, nausea, vomiting, diarrhea, and constipation, Back: Negative for injury and pain, : Negative for injury, bleeding, discharge, and swelling, Neuro: Negative for headache, weakness, numbness, tingling, and seizure, Psych: Negative for depression, anxiety, suicide ideation, homicidal ideation, and hallucinations, Allergy/Immunology: Negative for hives, rash, and allergies, Endocrine: Negative for neck swelling, polydipsia, polyuria, polyphagia, and marked weight changes, Hematologic/Lymphatic: Negative for swollen nodes, abnormal bleeding, and unusual bruising. 22:10 Cardiovascular: Positive for palpitations. 22:10 Respiratory: Positive for cough, shortness of breath, wheezing, expiratory. 22:10 MS/extremity: Positive for pain, swelling, tenderness, of the lateral aspect of left calf, left lateral ankle, left calf, left Achilles, medial aspect of left calf, left medial ankle, left barriga, anterior aspect of left ankle and dorsum of left foot. Exam: 22:10 Constitutional: This is a well developed, well nourished patient who is awake, alert, colin and in no acute distress. Head/Face: Normocephalic, atraumatic. Eyes: Pupils equal round and reactive to light, extra-ocular motions intact. Lids and lashes normal. Conjunctiva and sclera are non-icteric and not injected. Cornea within normal limits. Periorbital areas with no swelling, redness, or edema. ENT: Nares patent. No nasal discharge, no septal abnormalities noted. Tympanic membranes are normal and external auditory canals are clear. Oropharynx with no redness, swelling, or masses, exudates, or evidence of obstruction, uvula midline. Mucous membranes moist. Neck: Trachea midline, no thyromegaly or masses palpated, and no cervical lymphadenopathy. Supple, full range of motion without nuchal rigidity, or vertebral point tenderness. No Meningismus. Chest/axilla: Normal chest wall appearance and motion. Nontender with no deformity. No lesions are appreciated. Abdomen/GI: Soft, non-tender, with normal bowel sounds. No distension or tympany. No guarding or rebound. No evidence of tenderness throughout. Back: No spinal tenderness. No costovertebral tenderness. Full range of motion. Male : Normal genitalia with no discharge or lesions. Skin: Warm, dry with normal turgor. Normal color with no rashes, no lesions, and no evidence of cellulitis. Neuro: Awake and alert, GCS 15, oriented to person, place, time, and situation. Cranial nerves II-XII grossly intact. Motor strength 5/5 in all extremities. Sensory grossly intact. Cerebellar exam normal. Normal gait. Psych: Awake, alert, with orientation to person, place and time. Behavior, mood, and affect are within normal limits. 22:10 Cardiovascular: Rate: tachycardic, Rhythm: irregularly irregular, Pulses: Pulses are 4+ in bilateral radial, brachial, femoral, popliteal, posterior tibial and and dorsalis pedis arteries.. Heart sounds: normal, JVD: is not appreciated. 22:10 Respiratory: mild respiratory distress is noted, Respirations: labored breathing, that is mild, Breath sounds: decreased breath sounds, that are mild, Respiratory rate: 20 Vital Signs: 21:29 BP 154 / 77; Pulse 120; Resp 18; Temp 98.4(O); Pulse Ox 94% on 3 lpm NC; Weight 96.16 lp1 kg; Height 6 ft. 0 in. (182.88 cm); Pain 8/10; 22:40 BP 162 / 98; Pulse 123; Resp 20; Pulse Ox 97% on 3 lpm NC; Pain 8/10; ed1 08/27 00:12 BP 101 / 73; Pulse 111; Resp 20; Pulse Ox 96% on 3 lpm NC; Pain 8/10; ed1 01:26 BP 154 / 70; Pulse 110; Resp 16; Temp 98.2(O); Pulse Ox 96% on 3 lpm NC; Pain 8/10; ed1 02:03 Pain 5/10; ed1 08/26 21:29 Body Mass Index 28.75 (96.16 kg, 182.88 cm) lp1 MDM: 08/26 21:58 Patient medically screened. [facility] 22:21 Data reviewed: vital signs, nurses notes, lab test result(s), EKG, radiologic studies. [facility] 08/26 22:09 Order name: Basic Metabolic Panel [facility] 08/26 22:09 Order name: CBC with Diff; Complete Time: 23:56 [facility] 08/26 22:09 Order name: LFT's [facility] 08/26 22:09 Order name: Magnesium [facility] 08/26 22:09 Order name: NT PRO-BNP [facility] 08/26 22:09 Order name: PT-INR; Complete Time: 01:02 [facility] 08/26 22:09 Order name: Troponin (emerg Dept Use Only) [facility] 08/26 22:09 Order name: Lipase [facility] 08/26 22:09 Order name: Procalcitonin [facility] 08/26 22:09 Order name: Lactate; Complete Time: 01:02 [facility] 08/26 22:25 Order name: Blood Culture Adult (2) ar5 08/27 00:15 Order name: Basic Metabolic Panel; Complete Time: 01:02 [facility] 08/27 00:15 Order name: Liver (Hepatic) Function; Complete Time: 01:02 [facility] 08/27 00:15 Order name: Troponin (Emerg Dept Use Only); Complete Time: 01:02 [facility] 08/26 22:09 Order name: XRAY Chest (1 view) [facility] 08/26 22:09 Order name: EKG; Complete Time: 22:11 [facility] 08/26 22:09 Order name: Cardiac monitoring; Complete Time: 22:14 [facility] 08/26 22:09 Order name: EKG - Nurse/Tech; Complete Time: 22:14 [facility] 08/26 22:09 Order name: IV Saline Lock; Complete Time: 22:14 [facility] 08/26 22:35 Order name: CONS Physician Consult [facility] 08/27 00:15 Order name: NT PRO-BNP; Complete Time: 01:02 [facility] 08/27 00:15 Order name: Magnesium; Complete Time: 01:02 [facility] 08/27 00:15 Order name: Lipase; Complete Time: 01:02 [facility] 08/26 22:09 Order name: Labs collected and sent; Complete Time: 22:14 [facility] 08/26 22:09 Order name: O2 Per Protocol; Complete Time: 22:14 [facility] 08/26 22:09 Order name: O2 Sat Monitoring; Complete Time: 22:13 [facility] 08/26 22:09 Order name: Wound Care; Complete Time: 00:07 [facility] Administered Medications: 22:45 Drug: NS 0.9% 1000 ml Route: IV; Rate: 125 ml/hr; Site: left upper arm; ed1 08/27 02:04 Follow up: IV Status: Infusion continued upon admission ed1 08/26 22:45 Drug: Zosyn 3.375 grams Route: IVPB; Infused Over: 60 mins; Site: left upper arm; ed1 23:48 Follow up: IV Status: Completed infusion lp1 22:46 Drug: Pepcid 20 mg Route: IVP; Site: left upper arm; ed1 23:37 Follow up: Response: No adverse reaction ed1 23:37 Drug: vancoMYCIN 1 grams Route: IVPB; Infused Over: 2 hrs; Site: right upper arm; ed1 08/27 01:37 Follow up: Response: No adverse reaction; IV Status: Completed infusion ed1 01:24 Drug: Magnesium Sulfate 1 grams Route: IVPB; Infused Over: 1 hrs; Site: left upper arm; ed1 02:03 Follow up: IV Status: Infusion continued upon admission ed1 :25 Drug: fentaNYL (PF) 25 mcg Route: IVP; Site: left upper arm; ed1 02:03 Follow up: Pain 5/10 Adult; Response: No adverse reaction; Pain is decreased ed1 01:25 Drug: Zofran 4 mg Route: IVP; Site: left upper arm; ed1 02:03 Follow up: Response: No adverse reaction; Nausea is decreased ed1 Disposition: 08/26/18 22:24 Hospitalization ordered by Cordell Herrera for Inpatient Admission. Preliminary diagnosis are Cellulitis and acute lymphangitis of other parts of limb, Chronic obstructive pulmonary disease, unspecified, Type 1 diabetes mellitus, Obesity, unspecified, Anemia, unspecified, Atrial fibrillation and flutter - with rvr, Elevated white blood cell count, Unspecified kidney failure, Hypomagnesemia. - Bed requested for Telemetry/MedSurg (Inpatient). - Status is Inpatient Admission. ed1 - Condition is Stable. - Problem is new. - Symptoms have improved. UTI on Admission? No Signatures: Dispatcher [employer] EDMS Noa Infante RN RN kl Anderson, Corey, MD MD cha Riggs, Erika, RN RN ed1 Consuelo Syed RN RN lp1 Corrections: (The following items were deleted from the chart) 08/26 23:57 22:24 Hospitalization Ordered by Cordell Herrera MD for Inpatient Admission. Preliminary [facility] diagnosis is Cellulitis and acute lymphangitis of other parts of limb; Chronic obstructive pulmonary disease, unspecified; Type 1 diabetes mellitus; Obesity, unspecified. Bed requested for Telemetry/MedSurg (Inpatient). Status is Inpatient Admission. Condition is Stable. Problem is new. Symptoms have improved. UTI on Admission? No. colin 08/27 01:04 08/26 23:57 08/26/2018 22:24 Hospitalization Ordered by Cordell Herrera MD for Inpatient colin Admission. Preliminary diagnosis is Cellulitis and acute lymphangitis of other parts of limb; Chronic obstructive pulmonary disease, unspecified; Type 1 diabetes mellitus; Obesity, unspecified; Anemia, unspecified; Atrial fibrillation and flutter - with rvr; Elevated white blood cell count. Bed requested for Telemetry/MedSurg (Inpatient). Status is Inpatient Admission. Condition is Stable. Problem is new. Symptoms have improved. UTI on Admission? No. colin 08/27 01:10 01:04 08/26/2018 22:24 Hospitalization Ordered by Cordell Herrera MD for Inpatient kl Admission. Preliminary diagnosis is Cellulitis and acute lymphangitis of other parts of limb; Chronic obstructive pulmonary disease, unspecified; Type 1 diabetes mellitus; Obesity, unspecified; Anemia, unspecified; Atrial fibrillation and flutter - with rvr; Elevated white blood cell count; Unspecified kidney failure; Hypomagnesemia. Bed requested for Telemetry/MedSurg (Inpatient). Status is Inpatient Admission. Condition is Stable. Problem is new. Symptoms have improved. UTI on Admission? No. colin 02:05 01:10 08/26/2018 22:24 Hospitalization Ordered by Cordell Hererra MD for Inpatient ed1 Admission. Preliminary diagnosis is Cellulitis and acute lymphangitis of other parts of limb; Chronic obstructive pulmonary disease, unspecified; Type 1 diabetes mellitus; Obesity, unspecified; Anemia, unspecified; Atrial fibrillation and flutter - with rvr; Elevated white blood cell count; Unspecified kidney failure; Hypomagnesemia. Bed requested for Telemetry/MedSurg (Inpatient). Status is Inpatient Admission. Condition is Stable. Problem is new. Symptoms have improved. UTI on Admission? No. kl
[2018-08-26] MEDS ORDERED: NA CHLORIDE 0.9% 1,000 ML ONE (22:27)
[2018-08-26] MEDS ORDERED: VANCOMYCIN 1 GM/250 ML BAG ONE (22:27)
[2018-08-26] MEDS ORDERED: PIPER/TAZO/NS 3.375gm 3.375 GM/100 ML BAG ONE (22:27)
[2018-08-26] MEDS ORDERED: FAMOTIDINE 20 MG/2 ML VIAL IV ONE (22:46)
[2018-08-26 23:29] LABS: Absolute Lymphocytes (CBC) 0.9 K/uL (0.7-4.9); Absolute Monocytes 0.9 K/uL (0.1-1.3); Absolute Neutrophil 9.4 K/uL (1.8-8.0); Basophils % 0.4 % (0-1.3); Eosinophils % 0.5 % (0-4.4); Hematocrit 28.5 % (39.6-49.0); Lymphocytes % 7.8 % (15.3-44.8); MPV 8.6 fL (7.6-11.3); RBC Red Blood Cell Count 3.18 M/uL (4.33-5.43)
[2018-08-26 23:30] LABS: Protime INR 1.12
[2018-08-27 00:14] LABS: ALT/SGPT 21 U/L (12-78); AST/SGOT 15 U/L (15-37); Albumin 2.5 g/dL (3.4-5.0); Alkaline Phosphatase 101 U/L (45-117); BUN Blood Urea Nitrogen 20 mg/dL (7-18); Bicarbonate 29 mmol/L (21-32); Bilirubin Direct < 0.1 mg/dL (0-0.2); Bilirubin Total 0.3 mg/dL (0.2-1.0); Glucose Level 312 mg/dL (74-106); Lipase 109 U/L (73-393); Magnesium 1.5 mg/dL (1.8-2.4); NT PRO-BNP 671 pg/mL (<125); Potassium 4.3 mmol/L (3.5-5.1); Protein, Total 7.2 g/dL (6.4-8.2); Sodium Level 135 mmol/L (136-145); Troponin (Emerg Dept Use Only) < 0.02 ng/mL (0.0-0.045)
[2018-08-27] MEDS ORDERED: FENTANYL CITR 100 MCG/2 ML ONE (01:26)
[2018-08-27] MEDS ORDERED: MAGNESIUM SULFATE 1 gm IVPB 1 GM/100 ML BAG IV ONE (01:26)
[2018-08-27] MEDS ORDERED: ONDANSETRON 4 MG/2 ML VIAL ONE (01:26)
[2018-08-27] MEDS ORDERED: D50W 25 GM/50 ML SYRINGE IV PRN ×4 (01:45→17:38)
[2018-08-27] MEDS ORDERED: VANCOMYCIN/NS 1 gm 1 GM/250 ML BAG IVPB SCH (01:45)
[2018-08-27] MEDS ORDERED: ACETAMINOPHEN 325 MG TABLET PO PRN (01:45)
[2018-08-27] MEDS ORDERED: METHYLPREDNISOLONE 40 MG INJ IV SCH (01:45)
[2018-08-27] MEDS ORDERED: GLUCAGON 1 MG/VIAL IM PRN ×4 (01:45→17:38)
[2018-08-27] MEDS ORDERED: ONDANSETRON 4 MG/2 ML VIAL IV PRN (01:45)
[2018-08-27] MEDS: PIPER/TAZO/NS 3.375gm 3.375 GM/100 ML BAG IVPB SCH ×4 (01:45→17:56)
[2018-08-27] MEDS ORDERED: VANCOMYCIN 750 MG in NA CHLORIDE 0.9% 150 ML IVPB ONE (02:45)
[2018-08-27 02:51] VITALS: BMI 28.7
[2018-08-27] MEDS ORDERED: VANCOMYCIN 1 GM/VIAL ONE (03:03)
[2018-08-27] MEDS ORDERED: NA CHLORIDE 0.9% 250 ML ONE (03:03)
[2018-08-27] MEDS: IPRATROPIUM BROM 0.5MG/2.5ML NEB PRN ×3 (03:40→23:45)
[2018-08-27] MEDS: ALBUTEROL 2.5 MG/3 ML NEB SOL NEB PRN ×3 (03:40→23:45)
[2018-08-27] MEDS ORDERED: PIPER/TAZO/NS 3.375gm 3.375 GM/100 ML BAG ONE (06:11)
[2018-08-27 06:49] LABS: Absolute Lymphocytes (CBC) 0.4 K/uL (0.7-4.9); Absolute Monocytes 0.2 K/uL (0.1-1.3); Absolute Neutrophil 10.7 K/uL (1.8-8.0); Basophils % 0.2 % (0-1.3); Eosinophils % 0.1 % (0-4.4); Hematocrit 26.6 % (39.6-49.0); Lymphocytes % 3.2 % (15.3-44.8); MPV 8.9 fL (7.6-11.3); Monocytes % 1.4 % (3.3-12.3); RBC Red Blood Cell Count 2.99 M/uL (4.33-5.43)
--- NOTE | 2018-08-27 07:58 | EKG ---
Test Date: 2018-08-26 Test Time: 21:55:01 [employer] Operator: SEBASTIEN MEASUREMENT RESULTS: Intervals: Rate: 123 [place]: QRSD: 92 QT: 312 QTc: 446 [place]: P: -71 KS: QRS: 59 T: 51 INTERPRETIVE STATEMENTS: Atrial flutter with variable AV block Abnormal ECG Compared to ECG 07/26/2018 10:06:28 Incomplete right bundle-branch block no longer present Prolonged QT interval no longer present Electronically Signed On 08-27-18 07:53:08 QUALITATIVE FIELD COORDINATOR by Jose Rubio
[2018-08-27] MEDS: INSULIN -REGULAR HUMAN 50 UNIT/0.5 ML ML SQ SCH ×5 (08:47→20:27)
[2018-08-27] MEDS ORDERED: FINASTERIDE 5 MG TAB PO SCH (09:00)
[2018-08-27] MEDS ORDERED: FAMOTIDINE 20 MG/2 ML VIAL IV SCH (09:00)
[2018-08-27] MEDS ORDERED: POTASSIUM CL SA 10 MEQ TAB PO SCH (09:00)
[2018-08-27] MEDS: HOME MED 1 EA UNK (Budesonide/Formoterol Fumarate [Symbicort 160-4.5 Mcg Inhaler] 2 PUFF) PO SCH (09:00)
--- NOTE | 2018-08-27 09:00 | RAD REPORT ---
EXAM DESCRIPTION: RAD - Chest Single View - 08/26/2018 10:49 pm CLINICAL HISTORY: COUGH Chest pain. COMPARISON: Chest Single View dated 07/27/2018; Chest Single View dated 07/26/2018; Chest Single Vie w dated 07/25/2018; Chest Single View dated 07/12/2018 FINDINGS: Portable technique limits examination quality. The lungs are emphysematous with a small left pleural effusion suspected. The heart is upper limit of normal in size. No displaced fractures. IMPRESSION: Small left pleural effusion.
[2018-08-27 09:38] LABS: Blood Morphology Comment NOT SEEN (NOT SEEN); Platelet Estimate ADEQ; Urine White Blood Cell Casts OK
[2018-08-27] MEDS: INSULIN GLARGINE 100 UNITS/ML SQ SCH ×2 (10:09→17:57)
[2018-08-27] MEDS: BUDESONIDE, MICRONIZED 3 MG CAP PO SCH (10:11)
[2018-08-27] MEDS: DOCUSATE NA 100 MG CAP PO SCH ×2 (10:11→20:28)
[2018-08-27] MEDS: ASPIRIN EC 81 MG TAB PO SCH (10:11)
[2018-08-27] MEDS: FERROUS GLUCONATE 300 MG TAB PO SCH ×2 (10:11→20:28)
[2018-08-27] MEDS: LOSARTAN POTASSIUM 50 MG TABLET PO SCH (10:11)
[2018-08-27] MEDS: FUROSEMIDE 40 MG TABLET PO SCH ×2 (10:12→18:02)
[2018-08-27] MEDS: GABAPENTIN 100 MG CAP PO SCH ×3 (10:12→20:28)
[2018-08-27] MEDS: APIXABAN 5 MG TABLET PO SCH ×2 (10:12→20:29)
[2018-08-27] MEDS: MAGNESIUM OXIDE 400 MG TAB PO SCH (10:13)
[2018-08-27] MEDS: METOPROLOL TAR 50 MG TAB PO SCH (13:04)
[2018-08-27] MEDS: SOTALOL HCL 80 MG TAB PO SCH ×2 (13:05→20:28)
[2018-08-27] MEDS ORDERED: INSULIN -REGULAR HUMAN 50 UNIT/0.5 ML ML IV SCH (14:44)
--- NOTE | 2018-08-27 16:23 | CON ---
Date of Consultation: 08/27/2018 Diagnosis: A left leg cellulitis. History Of Present Illness: This is the case of a 73-year-old patient with severe peripheral vascula r disease [facility] due to a previous gangrene of the first toe. Now come wi th abrasions over the lateral side of the foot and also abrasion of the distal lower leg region with cellulitis associated with a lower leg region. This is a new finding. The patient say that while he just when he move around he hit those areas and then he broke the skin, and then he has a cellulitis . The area of amputation looks fantastic with that healing well. Past Medical History: Includes peripheral vascular disease, heart disease, Crohn disease, depression , diabetes, and hypertension. 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 Allergies: NONE. Medications: Reviewed. Family History: Noncontributory. Review of Systems: Ten points otherwise remarkable. Physical Examination: General: The patient is awake and alert. No distress. Abdomen: Soft and depressible. No tenderness. Bowel sounds positive. Extremities: The patient has a previous amputation on the right leg region below-knee. Over the lef t foot region, the area of the amputation of the toe looks great, good granulation tissue. No infect ion of that area healing well by secondary intention. The patient has a new abrasion on the lateral aspect of the foot and the leg area those are traumatic in origin. It is in lateral side of the dist al leg region and also the lateral side of the foot. There is some breakage of the skin in that area , but there is no fluctuance or crepitus. Cellulitis mainly in the lower part of the leg. Periphera l pulses always been diminished. He was once again advised to follow with his vascular surgeon for a ny other consideration. Laboratory Data: Blood work shows WBC count of 11.2, hemoglobin of 8.7. INR is 1.12, potassium is 5 .0, glucose 317. Assessment: This is a 73-year-old patient with cellulitis of the lower legs. No fluctuance or no cr epitus. No surgical intervention planned at this moment. For the amputation site, adjust a wet-to-d ry dressing. We just going to use the Bactroban over that area since almost healed. Then, indicated Bactroban over the traumatic areas that he caused recently. Follow up with the wound healing center after discharge. The patient may be discharged whenever it is okay by the medical service. HOMERO Voice ID: [id number] Report ID: [id number]
[2018-08-27] MEDS: MUPIROCIN 2% OINT 22GM TUBE TOP SCH (17:00)
[2018-08-27] MEDS ORDERED: INSULIN -REGULAR HUMAN 50 UNIT/0.5 ML ML IV PRN (17:38)
[2018-08-27] MEDS: ATORVASTATIN 40 MG TAB PO SCH (20:28)
--- NOTE | 2018-08-27 20:51 | EKG ---
Test Date: 2018-08-27 Test Time: 09:29:06 Pin Worker: LAURA MEASUREMENT RESULTS: Intervals: Rate: 98 SD: 162 QRSD: 96 QT: 356 QTc: 454 Sun: P: SD: 162 QRS: 86 T: 66 INTERPRETIVE STATEMENTS: Normal sinus rhythm Normal ECG Compared to ECG 08/26/2018 21:55:01 Atrial flutter no longer present Electronically Signed On 08-27-18 20:48:08 BILINGUAL MANAGER by Jose Rubio
[2018-08-27 22:48] LABS: Urine Appearance CLEAR; Urine Bilirubin NEGATIVE (NEG); Urine Blood NEGATIVE (NEG); Urine Color YELLOW; Urine Glucose 1+ (NEG); Urine Protein NEGATIVE (NEG); Urine Specific Gravity <=1.005 (1.005-1.030); Urine Urobilinogen 0.2 mg/dL (0.2-1.0)
[2018-08-27 22:50] LABS: Urine Microscopic Reflex NO UMIC
[2018-08-28] MEDS: VANCOMYCIN 1.75 GM in NA CHLORIDE 0.9% 500 ML IVPB SCH (00:38)
[2018-08-28] MEDS: PIPER/TAZO/NS 3.375gm 3.375 GM/100 ML BAG IVPB SCH ×2 (00:38→08:53)
[2018-08-28] MEDS: IPRATROPIUM BROM 0.5MG/2.5ML NEB PRN ×6 (04:00→22:44)
[2018-08-28] MEDS: ALBUTEROL 2.5 MG/3 ML NEB SOL NEB PRN ×6 (04:00→22:44)
--- NOTE | 2018-08-28 04:46 | HP ---
Date of Admission: 08/26/2018 Chief Complaint: Pain, left leg. History Of Present Illness: A 73-year-old male was brought to the emergency room because of redness and pain in left leg of 1-day duration. He was seen in the emergency room, and he was found to have cellulitis. In view of his risk factors, the patient is admitted for IV antibiotic therapy. The pat ient denied any history of systemic symptoms. Past Medical History: Extensive and includes history of type 2 diabetes, congestive heart failure, C OPD, peripheral vascular disease, right leg amputation, left toe amputation, hyperlipidemia, prostati c problems, depression and anxiety, chronic atrial fibrillation. Family History: Diabetes present. Personal History: Nonsmoker. Surgical History: Amputation of the leg, colon resection, hernia repair, toe amputation. Review of Systems: No chest pain, fever, chills, rigors. Physical Examination: General: Revealed a 73-year-old male, alert for his age. HEENT: Otherwise negative. Neck: Supple. JVD negative. Chest: Few scattered wheezes. Heart: Irregularity noted. Abdomen: Soft, nontender. Extremities: Right leg amputation noted. Left leg shows cellulitis involving mid leg to the lower l eg. The amputation site does not have any active drainage. Laboratory: White count 11.3. Chem profile at admission, BUN 20, creatinine 1.3. BNP 671. Troponi n normal. Assessment: 1.Cellulitis, left leg. 2.Peripheral vascular disease. 3.Type 2 diabetes, requiring insulin. 4.Chronic heart failure. 5.Chronic atrial fibrillation. 6.Chronic obstructive pulmonary disease. 7.Benign prostatic hyperplasia. 8.Hyperlipidemia. Plan: The patient is started on IV antibiotic, which will be continued. The patient will have slidi ng scale. He does not have any indication for IV steroids. This will be discontinued because of hig h blood sugars. ZAIRA/IVORY Voice ID: [id number]
[2018-08-28] MEDS: PANTOPRAZOLE 40MG TABLET PO SCH (05:21)
[2018-08-28] MEDS: INSULIN -REGULAR HUMAN 50 UNIT/0.5 ML ML SQ SCH ×4 (08:20→21:53)
[2018-08-28] MEDS: BUDESONIDE, MICRONIZED 3 MG CAP PO SCH (08:56)
[2018-08-28] MEDS: MAGNESIUM OXIDE 400 MG TAB PO SCH (08:56)
[2018-08-28] MEDS: SOTALOL HCL 80 MG TAB PO SCH ×2 (08:56→21:54)
[2018-08-28] MEDS: LOSARTAN POTASSIUM 50 MG TABLET PO SCH (08:57)
[2018-08-28] MEDS: APIXABAN 5 MG TABLET PO SCH ×2 (08:57→21:54)
[2018-08-28] MEDS: METOPROLOL TAR 50 MG TAB PO SCH (08:57)
[2018-08-28] MEDS: FERROUS GLUCONATE 300 MG TAB PO SCH ×2 (08:57→21:54)
[2018-08-28] MEDS: FUROSEMIDE 40 MG TABLET PO SCH ×2 (08:58→17:17)
[2018-08-28] MEDS: ASPIRIN EC 81 MG TAB PO SCH (08:58)
[2018-08-28] MEDS: GABAPENTIN 100 MG CAP PO SCH ×3 (08:58→21:54)
[2018-08-28] MEDS: HOME MED 1 EA UNK (Budesonide/Formoterol Fumarate [Symbicort 160-4.5 Mcg Inhaler] 2 PUFF) PO SCH (08:59)
[2018-08-28] MEDS: INSULIN GLARGINE 100 UNITS/ML SQ SCH ×2 (08:59→17:18)
[2018-08-28] MEDS: MUPIROCIN 2% OINT 22GM TUBE TOP SCH (08:59)
[2018-08-28] MEDS: DOCUSATE NA 100 MG CAP PO SCH ×2 (08:59→21:54)
[2018-08-28] MEDS: ATORVASTATIN 40 MG TAB PO SCH (21:56)
--- NOTE | 2018-08-29 01:50 | PN ---
The patient's redness is better. He is having less pain. The patient is afebrile. The patient is o n vancomycin and Zosyn. Zosyn will be discontinued. He will be continued on vancomycin pending comp leted blood culture reports. ZAIRA/IVORY Voice ID: [id number] Report ID: [id number]
[2018-08-29] MEDS: VANCOMYCIN 1.75 GM in NA CHLORIDE 0.9% 500 ML IVPB SCH (02:39)
[2018-08-29] MEDS: ALBUTEROL 2.5 MG/3 ML NEB SOL NEB PRN ×4 (03:08→23:50)
[2018-08-29] MEDS: IPRATROPIUM BROM 0.5MG/2.5ML NEB PRN ×4 (03:08→23:50)
[2018-08-29] MEDS: PANTOPRAZOLE 40MG TABLET PO SCH (05:09)
[2018-08-29] MEDS: INSULIN -REGULAR HUMAN 50 UNIT/0.5 ML ML SQ SCH ×4 (07:30→21:00)
[2018-08-29] MEDS: HOME MED 1 EA UNK (Budesonide/Formoterol Fumarate [Symbicort 160-4.5 Mcg Inhaler] 2 PUFF) PO SCH (09:00)
[2018-08-29] MEDS: BUDESONIDE, MICRONIZED 3 MG CAP PO SCH (09:23)
[2018-08-29] MEDS: SOTALOL HCL 80 MG TAB PO SCH ×2 (09:23→21:24)
[2018-08-29] MEDS: GABAPENTIN 100 MG CAP PO SCH ×3 (09:24→21:26)
[2018-08-29] MEDS: FERROUS GLUCONATE 300 MG TAB PO SCH ×2 (09:24→21:23)
[2018-08-29] MEDS: DOCUSATE NA 100 MG CAP PO SCH ×2 (09:24→21:23)
[2018-08-29] MEDS: MAGNESIUM OXIDE 400 MG TAB PO SCH (09:24)
[2018-08-29] MEDS: METOPROLOL TAR 50 MG TAB PO SCH (09:25)
[2018-08-29] MEDS: FUROSEMIDE 40 MG TABLET PO SCH ×2 (09:25→17:11)
[2018-08-29] MEDS: LOSARTAN POTASSIUM 50 MG TABLET PO SCH (09:26)
[2018-08-29] MEDS: APIXABAN 5 MG TABLET PO SCH ×2 (09:26→21:23)
[2018-08-29] MEDS: ASPIRIN EC 81 MG TAB PO SCH (09:26)
[2018-08-29] MEDS: INSULIN GLARGINE 100 UNITS/ML SQ SCH ×2 (09:26→17:10)
[2018-08-29] MEDS: MUPIROCIN 2% OINT 22GM TUBE TOP SCH (09:28)
[2018-08-29] MEDS: DOXYCYCLINE 100 MG CAP PO SCH ×2 (15:19→21:24)
[2018-08-29] MEDS: ATORVASTATIN 40 MG TAB PO SCH (21:24)
--- NOTE | 2018-08-30 02:23 | PN ---
The patient's redness is minimal. He is afebrile. However, his kidney function is a concern. In vi ew of this, he will be taken off vancomycin, placed on oral doxycycline to prevent any further loss o f kidney function. RRK/MODL Voice ID: [id number] Report ID: [id number]
[2018-08-30] MEDS: PANTOPRAZOLE 40MG TABLET PO SCH (07:27)
[2018-08-30] MEDS: IPRATROPIUM BROM 0.5MG/2.5ML NEB PRN ×2 (07:30→13:35)
[2018-08-30] MEDS: ALBUTEROL 2.5 MG/3 ML NEB SOL NEB PRN ×2 (07:30→13:35)
[2018-08-30] MEDS: INSULIN -REGULAR HUMAN 50 UNIT/0.5 ML ML SQ SCH ×4 (07:30→21:00)
[2018-08-30] MEDS: FUROSEMIDE 40 MG TABLET PO SCH ×2 (08:19→17:34)
[2018-08-30] MEDS: MAGNESIUM OXIDE 400 MG TAB PO SCH (08:20)
[2018-08-30] MEDS: GABAPENTIN 100 MG CAP PO SCH ×3 (08:20→21:03)
[2018-08-30] MEDS: SOTALOL HCL 80 MG TAB PO SCH ×2 (08:20→21:03)
[2018-08-30] MEDS: DOXYCYCLINE 100 MG CAP PO SCH ×2 (08:20→21:02)
[2018-08-30] MEDS: LOSARTAN POTASSIUM 50 MG TABLET PO SCH (08:20)
[2018-08-30] MEDS: APIXABAN 5 MG TABLET PO SCH ×2 (08:20→21:02)
[2018-08-30] MEDS: BUDESONIDE, MICRONIZED 3 MG CAP PO SCH (08:20)
[2018-08-30] MEDS: FERROUS GLUCONATE 300 MG TAB PO SCH ×2 (08:20→21:02)
[2018-08-30] MEDS: DOCUSATE NA 100 MG CAP PO SCH ×2 (08:20→21:02)
[2018-08-30] MEDS: INSULIN GLARGINE 100 UNITS/ML SQ SCH ×2 (08:21→17:35)
[2018-08-30] MEDS: METOPROLOL TAR 50 MG TAB PO SCH (08:21)
[2018-08-30] MEDS: ASPIRIN EC 81 MG TAB PO SCH (08:21)
[2018-08-30] MEDS: HOME MED 1 EA UNK (Budesonide/Formoterol Fumarate [Symbicort 160-4.5 Mcg Inhaler] 2 PUFF) PO SCH (08:22)
[2018-08-30] MEDS: MUPIROCIN 2% OINT 22GM TUBE TOP SCH (08:23)
[2018-08-30] MEDS ORDERED: VANCOMYCIN 1.75 GM in NA CHLORIDE 0.9% 500 ML IVPB SCH (12:00)
[2018-08-30] MEDS: ATORVASTATIN 40 MG TAB PO SCH (21:02)
[2018-08-31] MEDS: ALBUTEROL 2.5 MG/3 ML NEB SOL NEB PRN ×2 (00:55→08:29)
[2018-08-31] MEDS: IPRATROPIUM BROM 0.5MG/2.5ML NEB PRN ×2 (00:55→08:29)
[2018-08-31] MEDS: PANTOPRAZOLE 40MG TABLET PO SCH (06:27)
[2018-08-31] MEDS: INSULIN -REGULAR HUMAN 50 UNIT/0.5 ML ML SQ SCH ×2 (07:30→11:30)
[2018-08-31 08:53] VITALS: TEMP 97
[2018-08-31] MEDS: MUPIROCIN 2% OINT 22GM TUBE TOP SCH (09:00)
[2018-08-31] MEDS: INSULIN GLARGINE 100 UNITS/ML SQ SCH (09:00)
[2018-08-31] MEDS: HOME MED 1 EA UNK (Budesonide/Formoterol Fumarate [Symbicort 160-4.5 Mcg Inhaler] 2 PUFF) PO SCH (09:00)
[2018-08-31 09:49] VITALS: O2SAT 95
[2018-08-31] MEDS: MAGNESIUM OXIDE 400 MG TAB PO SCH (09:58)
[2018-08-31] MEDS: FUROSEMIDE 40 MG TABLET PO SCH (09:58)
[2018-08-31] MEDS: ASPIRIN EC 81 MG TAB PO SCH (09:59)
[2018-08-31] MEDS: SOTALOL HCL 80 MG TAB PO SCH (09:59)
[2018-08-31] MEDS: DOXYCYCLINE 100 MG CAP PO SCH (09:59)
[2018-08-31] MEDS: GABAPENTIN 100 MG CAP PO SCH (09:59)
[2018-08-31] MEDS: BUDESONIDE, MICRONIZED 3 MG CAP PO SCH (09:59)
[2018-08-31] MEDS: LOSARTAN POTASSIUM 50 MG TABLET PO SCH (09:59)
[2018-08-31] MEDS: APIXABAN 5 MG TABLET PO SCH (09:59)
[2018-08-31] MEDS: METOPROLOL TAR 50 MG TAB PO SCH (09:59)
[2018-08-31] MEDS: FERROUS GLUCONATE 300 MG TAB PO SCH (09:59)
[2018-08-31] MEDS: DOCUSATE NA 100 MG CAP PO SCH (09:59)
[2018-08-31 12:03] VITALS: BP 150/61
== END 2018-08-31 13:13 | disposition home health service (06) | DRG 603 ==
LOC: ER 21:20 → ERHOLD 22:29 → 2ND 08-27 01:37
PROVIDERS: ADMIT Internal Medicine; ATTEND Internal Medicine
DX: L03.116 Cellulitis of left lower limb (principal); I89.1 Lymphangitis; E11.51 Type 2 diabetes mellitus with diabetic peripheral angiopathy without gangrene; Z89.422 Acquired absence of other left toe(s); J44.9 Chronic obstructive pulmonary disease, unspecified; E78.5 Hyperlipidemia, unspecified; F32.9 Major depressive disorder, single episode, unspecified; F41.9 Anxiety disorder, unspecified; I48.2 Chronic atrial fibrillation; N40.0 Benign prostatic hyperplasia without lower urinary tract symptoms; Z89.511 Acquired absence of right leg below knee; S90.812A Abrasion, left foot, initial encounter; S80.812A Abrasion, left lower leg, initial encounter; W22.01XA Walked into wall, initial encounter; Y93.01 Activity, walking, marching and hiking; Y92.019 Unspecified place in single-family (private) house as the place of occurrence of the external cause
CPT/HCPCS: 36415; 71045; 80048; 80076; 80202; 81003; 82565; 82947; 82962; 83605; 83690; 83735; 83880; 84145; 84484; 85025; 85610; 87040; 93005; 94640; 94760; 99285; J2405; J2543; J2920; J3010; J3370; J3475; J7030

== ENCOUNTER 2018-09-02 20:20 | Emergency (ER) | payer OTHER ==
--- OUTSIDE RECORDS SUMMARY | 2018-09-02 20:22 | XMS REPORT | Clinical Summary ---
:1945 Author Organization [facility] Address [address] [place] [address] Care Team Providers Name Role Phone Asked, [...] Not on file Results Not on fileafter 09/01/2017 Insurance Payer Benefit Plan / Group Subscriber ID Type Phone Address [employer] [facility] xxxxxxxxx HMO Advance Directives Patient has advance care planning documents, and code status on file. For more information, please contact:Ari Hernandez[address] [place] [address] Code Status Date Activated Date Inactivated Comments Full Code 05/24/2016 9:28 PM 05/26/2016 4:41 PM Code Status decision reached by: Patient
--- NOTE | 2018-09-02 21:48 | RAD REPORT ---
EXAM DESCRIPTION: RAD - Foot Left 3 View - 09/02/2018 9:37 pm CLINICAL HISTORY: PAIN Swelling COMPARISON: Foot Left 3 View dated 08/04/2018; Foot Left 3 View dated 09/22/2015 FINDINGS: Great toe and partial left first metatarsal amputation noted. Mild soft tissue swelling is seen in the region. Second toe amputation also present. Small calcaneal spur noted. Vascular calcifi cations evident. No radiographic finding to indicate osteomyelitis.
--- NOTE | 2018-09-02 21:58 | ER ---
Nurse's Notes [facility] Name: Jethro Burden Age: 73 yrs Sex: Male : 1945 Arrival Date: 09/02/2018 Time: 20:23 Bed 30 Private MD: Cordell Herrera R Diagnosis: Cellulitis of left lower limb Presentation: 09/02 20:30 Presenting complaint: Patient states: left lower leg, left foot redness, swelling and ak1 pain since this morning. Transition of care: patient was not received from another setting of care. Onset of symptoms was September 02, 2018. Risk Assessment: Do you want to hurt yourself or someone else? Patient reports no desire to harm self or others. Care prior to arrival: None. 20:30 Method Of Arrival: Wheelchair ak1 20:30 Acuity: TAN 3 ak1 21:33 Initial Sepsis Screen: Does the patient meet any 2 criteria? No. Patient's initial mg2 sepsis screen is negative. Does the patient have a suspected source of infection? No. Patient's initial sepsis screen is negative. Triage Assessment: 20:32 General: Appears in no apparent distress. ak1 Historical: - Allergies: 20:32 NKDA; ak1 - Home Meds: 20:32 albuterol sulfate 2.5 mg /3 mL (0.083 %) Inhl nebu 3 mL Q4H prn [Active]; apixaban 5 mg ak1 Oral 1 tab 2 times per day [Active]; aspirin 81 mg Oral TbEC 1 tab once daily [Active]; atorvastatin 80 mg Oral tab 0.5 tab once daily [Active]; budesonide 3 mg Oral CECX 3 caps once daily [Active]; budesonide-formoterol inhalation 2 puffs 2 times per day [Active]; docusate sodium 100 mg Oral cap 1 cap 2 times per day [Active]; ferrous gluconate 324 mg (36 mg iron) Oral tab twice a day [Active]; finasteride 5 mg Oral tab 1 tab once daily [Active]; furosemide 40 mg Oral tab 3 tabs in am and 2 tabs in pm [Active]; insulin aspart subcutaneous 35 unit three times a day [Active]; gabapentin 100 mg Oral cap 1 caps 3 times per day [Active]; insulin detemir subcutaneous 70 units in am and 45 units in pm [Active]; ipratropium bromide 0.02 % inhalation soln 2.5 mL every 6 hours [Active]; losartan 100 mg Oral tab 1 tab once daily [Active]; magnesium oxide 420 mg Oral tab daily [Active]; metoprolol tartrate 50 mg Oral tab 1 tab once daily [Active]; pantoprazole 40 mg Oral TbEC 1 tab once daily [Active]; sotalol 120 mg Oral tab 1 tab 2 times per day [Active]; potassium chloride 10 mEq Oral cpER 2 caps once daily [Active]; - PMHx: 20:32 Atrial Fib; COPD; Crohn's; Depression; Diabetes - IDDM; CHF; Hyperlipidemia; ak1 Hypertension; prostate problems; - PSHx: 20:32 Amputation of left 2nd toe; R BKA; colon resection; Hernia repair; ak1 - Immunization history:: Adult Immunizations unknown. - Social history:: Smoking status: Patient/guardian denies using tobacco. - Ebola Screening: : No symptoms or risks identified at this time. Screenin:32 Abuse screen: Denies threats or abuse. Denies injuries from another. Nutritional mg2 screening: No deficits noted. Tuberculosis screening: No symptoms or risk factors identified. Fall Risk Ambulatory Aid- Crutches/Cane/Walker (15 pts). Assessment: 21:28 General: Appears in no apparent distress. comfortable, Behavior is calm, cooperative. mg2 Pain: Complains of pain in left foot Pain does not radiate. Pain currently is 4 out of 10 on a pain scale. Quality of pain is described as aching, Pain began gradually, Is intermittent. Neuro: Level of Consciousness is awake, alert, obeys commands, Oriented to person, place, time, situation. Cardiovascular: Capillary refill < 3 seconds Patient's skin is warm and dry. Respiratory: Airway is patent Respiratory effort is even, unlabored, Respiratory pattern is regular, symmetrical. GI: No deficits noted. : No deficits noted. EENT: No deficits noted. Derm: Skin is fragile, is thin, has lesions on left foot. Musculoskeletal: Circulation, motion, and sensation intact. Capillary refill < 3 seconds. Vital Signs: 20:32 BP 118 / 55; Pulse 86; Resp 20; Temp 97.9; Pulse Ox 99% on 3 lpm NC; Weight 92.08 kg ak1 (R); Height 6 ft. 0 in. (182.88 cm) (R); Pain 7/10; 22:49 BP 154 / 60; Pulse 80; Resp 18; Pulse Ox 100% on R/A; mg2 20:32 Body Mass Index 27.53 (92.08 kg, 182.88 cm) ak1 ED Course: 20:23 Patient arrived in ED. am2 20:23 Cordell Herrera MD is Private Physician. am2 20:31 Triage completed. ak1 20:32 Arm band placed on Patient placed in an exam room, on a stretcher, on oxygen, on pulse ak1 oximetry, Patient notified of wait time. 20:37 Jaime Reyes MD is Attending Physician. gs 21:24 Sesar Woodruff, RN is Primary Nurse. mg2 21:32 No provider procedures requiring assistance completed. Patient did not have IV access mg2 during this emergency room visit. 21:33 Patient has correct armband on for positive identification. mg2 21:34 Foot Left 3 View XRAY In Process Unspecified. EDMS 21:57 Jose Espinal MD is Referral Physician. gs 22:47 Dressings: non-adherent dressing x 1 left foot. mg2 Administered Medications: 22:30 Drug: Rocephin (cefTRIAXone) 1 grams Route: IM; Site: right gluteus; mg2 22:47 Follow up: Response: No adverse reaction; Medication administered at discharge. mg2 Outcome: 21:57 Discharge ordered by . gs 22:48 Discharged to home via wheelchair, with family. mg2 22:48 Condition: stable 22:48 Discharge instructions given to patient, family, Instructed on discharge instructions, follow up and referral plans. medication usage, Demonstrated understanding of instructions, follow-up care, medications, wound care, Prescriptions given X 1. 22:49 Patient left the ED. mg2 Signatures: Dispatcher [employer] EDMS Sachi Verde RN RN ak1 Teri Fong am2 Jaime Reyes MD MD Sesar Woodruff RN RN mg2
--- NOTE | 2018-09-02 21:58 | EDPHYS ---
Physician Documentation [facility] Name: Jethro Burden Age: 73 yrs Sex: Male : 1945 Arrival Date: 09/02/2018 Time: 20:23 Bed 30 Private MD: Cordell Herrera R ED Physician Jaime Reyes HPI: 09/02 21:53 This 73 yrs old Male presents to ER via Wheelchair with complaints of Foot gs Pain - swelling. 21:53 The complaints affect the left foot. Context: post surgical. Onset: The gs symptoms/episode began/occurred 2 day(s) ago. Associated signs and symptoms: Pertinent negatives: fever. Severity of symptoms: At their worst the symptoms were moderate, in the emergency department the symptoms are unchanged. The patient has experienced similar episodes in the past, a few times. The patient has been recently been admitted at [facility], for similar complaints, amputation. Historical: - Allergies: 20:32 NKDA; ak1 - Home Meds: 20:32 albuterol sulfate 2.5 mg /3 mL (0.083 %) Inhl nebu 3 mL Q4H prn [Active]; apixaban 5 mg ak1 Oral 1 tab 2 times per day [Active]; aspirin 81 mg Oral TbEC 1 tab once daily [Active]; atorvastatin 80 mg Oral tab 0.5 tab once daily [Active]; budesonide 3 mg Oral CECX 3 caps once daily [Active]; budesonide-formoterol inhalation 2 puffs 2 times per day [Active]; docusate sodium 100 mg Oral cap 1 cap 2 times per day [Active]; ferrous gluconate 324 mg (36 mg iron) Oral tab twice a day [Active]; finasteride 5 mg Oral tab 1 tab once daily [Active]; furosemide 40 mg Oral tab 3 tabs in am and 2 tabs in pm [Active]; insulin aspart subcutaneous 35 unit three times a day [Active]; gabapentin 100 mg Oral cap 1 caps 3 times per day [Active]; insulin detemir subcutaneous 70 units in am and 45 units in pm [Active]; ipratropium bromide 0.02 % inhalation soln 2.5 mL every 6 hours [Active]; losartan 100 mg Oral tab 1 tab once daily [Active]; magnesium oxide 420 mg Oral tab daily [Active]; metoprolol tartrate 50 mg Oral tab 1 tab once daily [Active]; pantoprazole 40 mg Oral TbEC 1 tab once daily [Active]; sotalol 120 mg Oral tab 1 tab 2 times per day [Active]; potassium chloride 10 mEq Oral cpER 2 caps once daily [Active]; - PMHx: 20:32 Atrial Fib; COPD; Crohn's; Depression; Diabetes - IDDM; CHF; Hyperlipidemia; ak1 Hypertension; prostate problems; - PSHx: 20:32 Amputation of left 2nd toe; R BKA; colon resection; Hernia repair; ak1 - Immunization history:: Adult Immunizations unknown. - Social history:: Smoking status: Patient/guardian denies using tobacco. - Ebola Screening: : No symptoms or risks identified at this time. ROS: 21:53 All other systems are negative. gs Exam: 21:53 Head/Face: Normocephalic, atraumatic. ENT: Nares patent. No nasal discharge, no gs septal abnormalities noted. Tympanic membranes are normal and external auditory canals are clear. Oropharynx with no redness, swelling, or masses, exudates, or evidence of obstruction, uvula midline. Mucous membranes moist. Cardiovascular: Regular rate and rhythm with a normal S1 and S2. No gallops, murmurs, or rubs. Normal PMI, no JVD. No pulse deficits. Respiratory: Lungs have equal breath sounds bilaterally, clear to auscultation and percussion. No rales, rhonchi or wheezes noted. No increased work of breathing, no retractions or nasal flaring. Abdomen/GI: Soft, non-tender, with normal bowel sounds. No distension or tympany. No guarding or rebound. No evidence of tenderness throughout. 21:53 Constitutional: The patient appears in no acute distress, alert, awake. 21:53 Skin: cellulitis, that is minimal, on the dorsum of left foot, wound no drainage, discoloration leg chronic. Vital Signs: 20:32 BP 118 / 55; Pulse 86; Resp 20; Temp 97.9; Pulse Ox 99% on 3 lpm NC; Weight 92.08 kg ak1 (R); Height 6 ft. 0 in. (182.88 cm) (R); Pain 7/10; 22:49 BP 154 / 60; Pulse 80; Resp 18; Pulse Ox 100% on R/A; mg2 20:32 Body Mass Index 27.53 (92.08 kg, 182.88 cm) ak1 MDM: 20:57 Patient medically screened. 21:56 Differential diagnosis: cellulitis, osteomyelitis, abscess. Data reviewed: vital signs, nurses notes, radiologic studies. Counseling: I had a detailed discussion with the patient and/or guardian regarding: the historical points, exam findings, and any diagnostic results supporting the discharge/admit diagnosis, the need for outpatient follow up. Response to treatment: the patient's symptoms have mildly improved after treatment. Physician consultation: Jose Espinal MD and will see patient in office, tomorrow. 09/02 20:57 Order name: Foot Left 3 View XRAY; Complete Time: 21:52 gs Administered Medications: 22:30 Drug: Rocephin (cefTRIAXone) 1 grams Route: IM; Site: right gluteus; mg2 22:47 Follow up: Response: No adverse reaction; Medication administered at discharge. mg2 Disposition: 09/02/18 21:57 Discharged to Home. Impression: Cellulitis of left lower limb. - Condition is Stable. - Discharge Instructions: Cellulitis, Adult. - Prescriptions for Keflex 500 mg Oral Capsule - take 1 capsule by ORAL route every 12 hours for 7 days; 14 capsule. - Medication Reconciliation Form, Thank You Letter, Antibiotic Education, Prescription Opioid Use form. - Follow up: Jose Espinal MD; When: Tomorrow; Reason: Re-evaluation by your physician. Signatures: Dispatcher [employer] EDSachi Vides RN RN ak1 Jaime Reyes MD MD Sesar Woodruff RN RN mg2 Corrections: (The following items were deleted from the chart) 22:49 21:57 09/02/2018 21:57 Discharged to Home. Impression: Cellulitis of left lower limb. mg2 Condition is Stable. Forms are Medication Reconciliation Form, Thank You Letter, Antibiotic Education, Prescription Opioid Use. Follow up: Jose Espinal; When: Tomorrow; Reason: Re-evaluation by your physician. gs
[2018-09-02] MEDS ORDERED: CEFTRIAXONE 1000 MG/VIAL ONE (22:25)
[2018-09-02] MEDS ORDERED: LIDOCAINE 1% MPF 5 ML VIAL ONE (22:25)
[2018-09-02 23:01] VITALS: TEMP 97.9
[2018-09-02 23:02] VITALS: BP 154/60; O2SAT 100
== END 2018-09-02 22:49 | disposition home or self-care (01) ==
LOC: ER 20:20
DX: L03.116 Cellulitis of left lower limb (principal); Z89.412 Acquired absence of left great toe; Z89.422 Acquired absence of other left toe(s); I48.91 Unspecified atrial fibrillation; J44.9 Chronic obstructive pulmonary disease, unspecified; I11.0 Hypertensive heart disease with heart failure; I50.9 Heart failure, unspecified; E11.9 Type 2 diabetes mellitus without complications; E78.5 Hyperlipidemia, unspecified; F32.9 Major depressive disorder, single episode, unspecified; Z79.82 Long term (current) use of aspirin; Z79.4 Long term (current) use of insulin; Z79.51 Long term (current) use of inhaled steroids; Z79.899 Other long term (current) drug therapy
CPT/HCPCS: 96372; 99284

== ENCOUNTER 2018-09-08 00:33 | Observation (INO) | payer OTHER ==
--- OUTSIDE RECORDS SUMMARY | 2018-09-08 00:36 | XMS REPORT | Clinical Summary ---
:1945 Author Organization [facility] Address [address] [place] [address] Care Team Providers Name Role Phone Asked, [...] Not on file Results Not on fileafter 09/07/2017 Insurance Payer Benefit Plan / Group Subscriber ID Type Phone Address [employer] [facility] xxxxxxxxx HMO Advance Directives Patient has advance care planning documents, and code status on file. For more information, please contact:Ari Hernandez[address] [place] [address] Code Status Date Activated Date Inactivated Comments Full Code 05/24/2016 9:28 PM 05/26/2016 4:41 PM Code Status decision reached by: Patient
[2018-09-08 01:12] LABS: Absolute Lymphocytes (CBC) 1.5 K/uL (0.7-4.9); Absolute Monocytes 0.9 K/uL (0.1-1.3); Basophils % 0.6 % (0-1.3); Hematocrit 27.1 % (39.6-49.0); Lymphocytes % 13.7 % (15.3-44.8); MPV 8.2 fL (7.6-11.3); Monocytes % 8.3 % (3.3-12.3); RBC Red Blood Cell Count 3.06 M/uL (4.33-5.43)
[2018-09-08 01:16] LABS: Protime INR 1.04
[2018-09-08 01:32] LABS: ALT/SGPT 23 U/L (12-78); AST/SGOT 14 U/L (15-37); Albumin 2.4 g/dL (3.4-5.0); Alkaline Phosphatase 128 U/L (45-117); BUN Blood Urea Nitrogen 47 mg/dL (7-18); Bicarbonate 35 mmol/L (21-32); Bilirubin Direct < 0.1 mg/dL (0-0.2); Bilirubin Total 0.2 mg/dL (0.2-1.0); Glucose Level 366 mg/dL (74-106); NT PRO-BNP 391 pg/mL (<125); Potassium 4.6 mmol/L (3.5-5.1); Protein, Total 6.8 g/dL (6.4-8.2); Sodium Level 140 mmol/L (136-145); Troponin (Emerg Dept Use Only) < 0.02 ng/mL (0.0-0.045)
[2018-09-08] MEDS ORDERED: FAMOTIDINE 20 MG/2 ML VIAL IV ONE (01:33)
[2018-09-08] MEDS ORDERED: CLINDAMYCIN 900MG/D5W 900 MG/50 ML IVPB IV ONE (02:33)
--- NOTE | 2018-09-08 02:38 | ER ---
Nurse's Notes [facility] Name: Jethro uBrden Age: 73 yrs Sex: Male : 1945 Arrival Date: 09/08/2018 Time: 00:37 Bed 14 Private MD: Cordell Herrera R Diagnosis: Chest pain;Left Leg Cellulitis;Hyperglycemia Presentation: 09/08 00:38 Presenting complaint: EMS states: Chest pain and shortness of breath that started 2 tl2 hours ago. Given 324 aspirin and 0.4 mg nitro SL, pt's pain decreased from 8/10 to 1/10. Pt reported midsternal and epigastric pain, does not radiate. Transition of care: patient was not received from another setting of care. Onset of symptoms was September 07, 2018 at 22:00. Risk Assessment: Do you want to hurt yourself or someone else? Patient reports no desire to harm self or others. Initial Sepsis Screen: Does the patient meet any 2 criteria? No. Patient's initial sepsis screen is negative. Does the patient have a suspected source of infection? No. Patient's initial sepsis screen is negative. Care prior to arrival: Medication(s) given: ASA, 81 mg, x 4, Nitroglycerin, 0.4 mg SL x 1, IV initiated. 20 GA, in the left wrist, Glucose check: 324. 00:38 Method Of Arrival: EMS: [facility] tl2 00:38 Acuity: TAN 3 tl2 Triage Assessment: 00:44 General: Appears in no apparent distress. uncomfortable, Behavior is calm, cooperative, tl2 appropriate for age. Pain: Complains of pain in xyphoid area and mid-sternal area. Neuro: Level of Consciousness is awake, alert, obeys commands, Oriented to person, place, time, situation. Cardiovascular: Chest pain is described as mild, quality is sharp, is located in epigastric area substernal area. Respiratory: Reports shortness of breath Airway is patent Respiratory effort is even, labored, Respiratory pattern is regular, symmetrical, Breath sounds are coarse bilaterally. GI: No signs and/or symptoms were reported involving the gastrointestinal system. : No signs and/or symptoms were reported regarding the genitourinary system. Derm: Bruising that is dark purple, on right lower quadrant and left lower quadrant. Historical: - Allergies: 00:44 NKDA; tl2 - Home Meds: 00:44 albuterol sulfate 2.5 mg /3 mL (0.083 %) Inhl nebu 3 mL Q4H prn [Active]; apixaban 5 mg tl2 Oral 1 tab 2 times per day [Active]; aspirin 81 mg Oral TbEC 1 tab once daily [Active]; atorvastatin 80 mg Oral tab 0.5 tab once daily [Active]; budesonide 3 mg Oral CECX 3 caps once daily [Active]; budesonide-formoterol inhalation 2 puffs 2 times per day [Active]; docusate sodium 100 mg Oral cap 1 cap 2 times per day [Active]; ferrous gluconate 324 mg (36 mg iron) Oral tab twice a day [Active]; finasteride 5 mg Oral tab 1 tab once daily [Active]; furosemide 40 mg Oral tab 3 tabs in am and 2 tabs in pm [Active]; gabapentin 100 mg Oral cap 1 caps 3 times per day [Active]; insulin aspart subcutaneous 35 unit three times a day [Active]; insulin detemir subcutaneous 70 units in am and 45 units in pm [Active]; ipratropium bromide 0.02 % inhalation soln 2.5 mL every 6 hours [Active]; losartan 100 mg Oral tab 1 tab once daily [Active]; metoprolol tartrate 50 mg Oral tab 1 tab once daily [Active]; magnesium oxide 420 mg Oral tab daily [Active]; pantoprazole 40 mg Oral TbEC 1 tab once daily [Active]; potassium chloride 10 mEq Oral cpER 2 caps once daily [Active]; sotalol 120 mg Oral tab 1 tab 2 times per day [Active]; - PMHx: 00:44 Atrial Fib; CHF; COPD; Crohn's; Depression; Diabetes - IDDM; Hyperlipidemia; tl2 Hypertension; prostate problems; - PSHx: 00:44 toe amputations on left foot; tl2 - Immunization history:: Adult Immunizations up to date. - Social history:: Smoking status: Patient/guardian denies using tobacco, the patient reports quitting approximately 15 years ago. - Ebola Screening: : No symptoms or risks identified at this time. - Family history:: not pertinent. - Hospitalizations: : No recent hospitalization is reported. Screenin:47 Abuse screen: Denies threats or abuse. Nutritional screening: No deficits noted. tl2 Tuberculosis screening: No symptoms or risk factors identified. Fall Risk IV access (20 points). Ambulatory Aid- Crutches/Cane/Walker (15 pts). Assessment: 00:44 General: see triage assessment. tl2 02:30 Also complains of. Reassessment: Patient appears in no apparent distress at this time. tl2 Patient and/or family updated on plan of care and expected duration. Pain level reassessed. pt appears to be sleeping, RR even and unlabored. family at bedside. 03:30 Reassessment: Patient appears in no apparent distress at this time. Patient and/or tl2 family updated on plan of care and expected duration. Pain level reassessed. 04:41 Reassessment: Patient appears in no apparent distress at this time. Patient and/or tl2 family updated on plan of care and expected duration. Pain level reassessed. pt stable and ready for transport to floor. Vital Signs: 00:44 BP 135 / 53; Pulse 93; Resp 20; Temp 98(O); Pulse Ox 100% on 3 lpm NC; Weight 92.08 kg; tl2 Height 6 ft. 2 in. (187.96 cm); Pain 1/; 01:40 BP 175 / 71; Pulse 91; Resp 20; Pulse Ox 100% on 3 lpm NC; tl2 02:30 BP 141 / 63; Pulse 88; Resp 17; Pulse Ox 100% on 3 lpm NC; tl2 04:02 BP 162 / 74; Pulse 86; Resp 12; Pulse Ox 100% on 3 lpm NC; tl2 00:44 Body Mass Index 26.06 (92.08 kg, 187.96 cm) tl2 Vitals: 01:40 Cardiac Rhythm Assessment Sinus rhythm. tl2 04:02 Cardiac Rhythm Assessment Sinus rhythm. tl2 ED Course: 00:37 Patient arrived in ED. mr 00:38 Cordell Herrera MD is Private Physician. mr 00:38 Sariah Berman RN is Primary Nurse. tl2 00:40 Triage completed. tl2 00:44 Arm band placed on right wrist. EKG completed in triage. Results shown to MD. tl2 00:46 Donald Moreira MD is Attending Physician. wa 00:47 Patient has correct armband on for positive identification. Placed in gown. Bed in low tl2 position. Call light in reach. Side rails up X2. library monitor on. Pulse ox on. NIBP on. 00:47 Maintain EMS IV. Dressing intact. Good blood return noted. Site clean \T\ dry. Gauge \T\ tl 2 site: 20 g L wrist. Oxygen administration via nasal cannula \T\ 3L/min. 01:13 XRAY Chest (1 view) In Process Unspecified. EDMN 02:35 Cordell Herrera MD is Hospitalizing Provider. wa 03:30 No provider procedures requiring assistance completed. Patient admitted, IV remains in tl2 place. Administered Medications: 01:08 Not Given (given per EMS): Aspirin Chewable Tablet 324 mg PO once; 81 mg tablets x 4 tl2 01:25 Drug: Pepcid 20 mg Route: IVP; Site: left wrist; tl2 02:00 Follow up: Response: No adverse reaction tl2 02:30 Drug: Clindamycin 900 mg Route: IVPB; Infused Over: 30 mins; Site: left wrist; tl2 03:00 Follow up: IV Status: Completed infusion; IV Intake: 50ml tl2 Intake: 03:00 IV: 50ml; Total: 50ml. tl2 Outcome: 02:37 Decision to Hospitalize by Provider. wa 03:30 Admitted to Med/surg accompanied by tech, family with patient, via stretcher, room 208, tl2 with oxygen, with chart, Report called to RYLEE Mahajan 03:30 Condition: stable 03:30 Discharge instructions given to patient, family, Instructed on the need for admit. 04:44 Patient left the ED. tl2 Signatures: Dispatcher [employer] Maria Del Carmen Valentin Taylor, RN RN tl2 Donald Moreira MD MD wv
--- NOTE | 2018-09-08 02:38 | EDPHYS ---
Physician Documentation [facility] Name: Jethro Burden Age: 73 yrs Sex: Male : 1945 Arrival Date: 09/08/2018 Time: 00:37 Bed 14 Private MD: Cordell Herrera R ED Physician Donald Moreira HPI: 09/08 02:15 This 73 yrs old Male presents to ER via EMS with complaints of Chest Pain. ak 02:15 The patient or guardian reports chest pain that is located primarily in the substernal wa area. Onset: 4 hour(s) ago. The pain does not radiate. Associated signs and symptoms: The patient has no apparent associated signs or symptoms. The chest pain is described as causing indigestion. Duration: The patient or guardian reports a single episode, that is still ongoing. Modifying factors: The symptoms are alleviated by nothing. the symptoms are aggravated by nothing. Severity of pain: At its worst the pain was moderate in the emergency department the pain is unchanged. The patient has experienced similar episodes in the past, a few times. The patient has not recently seen a physician. PMD is Dr. Doyle. Historical: - Allergies: 00:44 NKDA; tl2 - Home Meds: 00:44 albuterol sulfate 2.5 mg /3 mL (0.083 %) Inhl nebu 3 mL Q4H prn [Active]; apixaban 5 mg tl2 Oral 1 tab 2 times per day [Active]; aspirin 81 mg Oral TbEC 1 tab once daily [Active]; atorvastatin 80 mg Oral tab 0.5 tab once daily [Active]; budesonide 3 mg Oral CECX 3 caps once daily [Active]; budesonide-formoterol inhalation 2 puffs 2 times per day [Active]; docusate sodium 100 mg Oral cap 1 cap 2 times per day [Active]; ferrous gluconate 324 mg (36 mg iron) Oral tab twice a day [Active]; finasteride 5 mg Oral tab 1 tab once daily [Active]; furosemide 40 mg Oral tab 3 tabs in am and 2 tabs in pm [Active]; gabapentin 100 mg Oral cap 1 caps 3 times per day [Active]; insulin aspart subcutaneous 35 unit three times a day [Active]; insulin detemir subcutaneous 70 units in am and 45 units in pm [Active]; ipratropium bromide 0.02 % inhalation soln 2.5 mL every 6 hours [Active]; losartan 100 mg Oral tab 1 tab once daily [Active]; metoprolol tartrate 50 mg Oral tab 1 tab once daily [Active]; magnesium oxide 420 mg Oral tab daily [Active]; pantoprazole 40 mg Oral TbEC 1 tab once daily [Active]; potassium chloride 10 mEq Oral cpER 2 caps once daily [Active]; sotalol 120 mg Oral tab 1 tab 2 times per day [Active]; - PMHx: 00:44 Atrial Fib; CHF; COPD; Crohn's; Depression; Diabetes - IDDM; Hyperlipidemia; tl2 Hypertension; prostate problems; - PSHx: 00:44 toe amputations on left foot; tl2 - Immunization history:: Adult Immunizations up to date. - Social history:: Smoking status: Patient/guardian denies using tobacco, the patient reports quitting approximately 15 years ago. - Ebola Screening: : No symptoms or risks identified at this time. - Family history:: not pertinent. - Hospitalizations: : No recent hospitalization is reported. ROS: 02:16 Constitutional: Negative for fever, chills, and weight loss, Eyes: Negative for injury, wa pain, redness, and discharge, ENT: Negative for injury, pain, and discharge, Neck: Negative for injury, pain, and swelling, Respiratory: Negative for shortness of breath, cough, wheezing, and pleuritic chest pain, Abdomen/GI: Negative for abdominal pain, nausea, vomiting, diarrhea, and constipation, Back: Negative for injury and pain, : Negative for injury, bleeding, discharge, and swelling, MS/Extremity: Negative for injury and deformity, Skin: Negative for injury, rash, and discoloration, Neuro: Negative for headache, weakness, numbness, tingling, and seizure, Psych: Negative for depression, anxiety, suicide ideation, homicidal ideation, and hallucinations. 02:16 Cardiovascular: Positive for chest pain, Negative for edema, orthopnea, palpitations, paroxysmal nocturnal dyspnea. 02:16 All other systems are negative. Exam: 02:16 Constitutional: This is a well developed, well nourished patient who is awake, alert, wa and in no acute distress. Head/Face: Normocephalic, atraumatic. Eyes: Pupils equal round and reactive to light, extra-ocular motions intact. Lids and lashes normal. Conjunctiva and sclera are non-icteric and not injected. Cornea within normal limits. Periorbital areas with no swelling, redness, or edema. ENT: Nares patent. No nasal discharge, no septal abnormalities noted. Tympanic membranes are normal and external auditory canals are clear. Oropharynx with no redness, swelling, or masses, exudates, or evidence of obstruction, uvula midline. Mucous membranes moist. Neck: Trachea midline, no thyromegaly or masses palpated, and no cervical lymphadenopathy. Supple, full range of motion without nuchal rigidity, or vertebral point tenderness. No Meningismus. Chest/axilla: Normal chest wall appearance and motion. Nontender with no deformity. No lesions are appreciated. Abdomen/GI: Soft, non-tender, with normal bowel sounds. No distension or tympany. No guarding or rebound. No evidence of tenderness throughout. Back: No spinal tenderness. No costovertebral tenderness. Full range of motion. Neuro: Awake and alert, GCS 15, oriented to person, place, time, and situation. Cranial nerves II-XII grossly intact. Motor strength 5/5 in all extremities. Sensory grossly intact. Cerebellar exam normal. Normal gait. Psych: Awake, alert, with orientation to person, place and time. Behavior, mood, and affect are within normal limits. 02:16 Cardiovascular: Rate: normal, Rhythm: regular, Pulses: no pulse deficits are appreciated, Heart sounds: normal, Edema: is not appreciated, JVD: is not appreciated. 02:16 Respiratory: the patient does not display signs of respiratory distress, Respirations: normal, Breath sounds: are clear throughout, Respiratory rate: normal 02:16 Musculoskeletal/extremity: Extremities: grossly normal except: redness, increased warmth, L lower leg consisted with cellulitis, L foot ulcer at location of amputated L great toe. Vital Signs: 00:44 BP 135 / 53; Pulse 93; Resp 20; Temp 98(O); Pulse Ox 100% on 3 lpm NC; Weight 92.08 kg; tl2 Height 6 ft. 2 in. (187.96 cm); Pain 08/09; 01:40 BP 175 / 71; Pulse 91; Resp 20; Pulse Ox 100% on 3 lpm NC; tl2 02:30 BP 141 / 63; Pulse 88; Resp 17; Pulse Ox 100% on 3 lpm NC; tl2 04:02 BP 162 / 74; Pulse 86; Resp 12; Pulse Ox 100% on 3 lpm NC; tl2 00:44 Body Mass Index 26.06 (92.08 kg, 187.96 cm) tl2 MDM: 00:46 Patient medically screened. 02:18 Differential diagnosis: acute myocardial infarction, acute pericarditis, coronary wa artery disease congestive heart failure gastritis, pancreatitis, peptic ulcer disease, pericarditis, pneumonia, pneumothorax, unstable angina. 02:20 Data reviewed: lab test result(s), EKG, radiologic studies. Test interpretation: by ED ak physician or midlevel provider: EKG: HR 95. incomplete RBBB. no ischemic changes noted otherwise. 02:21 Test interpretation: by ED physician or midlevel provider: CXR: blunted L costophrenic ak angle. labs: anemia. hyperglycemia. renal insuff. GFR 47. . 02:34 Response to treatment: the patient's symptoms have markedly improved after treatment. ak Physician consultation: Cordell Herrera MD. Admission orders: after a detailed discussion of the patient's condition and case, the admit orders are written by nc. 02 00:55 Order name: Basic Metabolic Panel; Complete Time: 02:19 ak 09/08 00:55 Order name: CBC with Diff; Complete Time: 02:20 ak 09/08 00:55 Order name: LFT's; Complete Time: 02:20 ak 09/08 00:55 Order name: Magnesium; Complete Time: 02:20 ak 09/08 00:55 Order name: NT PRO-BNP; Complete Time: 02:20 ak 09/08 00:55 Order name: PT-INR; Complete Time: 02:20 ak 09/08 00:55 Order name: Troponin (emerg Dept Use Only); Complete Time: 02:20 ak 09/08 00:55 Order name: XRAY Chest (1 view) ak 09/08 04:07 Order name: Basic Metabolic Panel [facility] 09/08 04:07 Order name: Basic Metabolic Panel [facility] 09/08 04:07 Order name: Troponin I [facility] 09/08 04:07 Order name: Troponin I [facility] 09/08 04:07 Order name: Troponin I [facility] 09/08 00:55 Order name: EKG; Complete Time: 00:56 09/08 00:55 Order name: Cardiac monitoring; Complete Time: 00:58 09/08 00:55 Order name: EKG - Nurse/Tech; Complete Time: 00:58 09/08 00:55 Order name: IV Saline Lock; Complete Time: 00:58 09/08 00:55 Order name: Labs collected and sent; Complete Time: 00:59 09/08 00:55 Order name: O2 Per Protocol; Complete Time: 00:59 09/08 00:55 Order name: O2 Sat Monitoring; Complete Time: 00:59 09/08 04:07 Order name: EKG Electrocardiogram EDMS 09/08 04:07 Order name: EKG Electrocardiogram EDMS 09/08 04:08 Order name: EKG Electrocardiogram EDMS 09/08 04:08 Order name: EKG Electrocardiogram EDMS Administered Medications: 01:08 Not Given (given per EMS): Aspirin Chewable Tablet 324 mg PO once; 81 mg tablets x 4 tl2 01:25 Drug: Pepcid 20 mg Route: IVP; Site: left wrist; tl2 02:00 Follow up: Response: No adverse reaction tl2 02:30 Drug: Clindamycin 900 mg Route: IVPB; Infused Over: 30 mins; Site: left wrist; tl2 03:00 Follow up: IV Status: Completed infusion; IV Intake: 50ml tl2 Disposition: 09/08/18 02:37 Hospitalization ordered by Cordell Herrera for Observation. Preliminary diagnosis are Chest pain, Left Leg Cellulitis, Hyperglycemia. - Bed requested for Telemetry/MedSurg (observation). - Status is Observation. tl2 - Condition is Stable. - Problem is new. - Symptoms have improved. UTI on Admission? No Signatures: Dispatcher [employer] EDNoa Mitchell RN RN kl Knox, Taylor, RN RN tl2 Donald Moreira MD MD ak Corrections: (The following items were deleted from the chart) 04:25 02:37 Hospitalization Ordered by Cordell Herrera MD for Observation. Preliminary diagnosis kl is Chest pain; Left Leg Cellulitis; Hyperglycemia. Bed requested for Telemetry/MedSurg (observation). Status is Observation. Condition is Stable. Problem is new. Symptoms have improved. UTI on Admission? No. ak 04:44 04:25 09/08/2018 02:37 Hospitalization Ordered by Cordell Herrera MD for Observation. tl2 Preliminary diagnosis is Chest pain; Left Leg Cellulitis; Hyperglycemia. Bed requested for Telemetry/MedSurg (observation). Status is Observation. Condition is Stable. Problem is new. Symptoms have improved. UTI on Admission? No. kl
[2018-09-08] MEDS ORDERED: ACETAMINOPHEN 500 MG TAB PO PRN (04:06)
[2018-09-08 04:56] VITALS: BMI 29.8
[2018-09-08 06:18] LABS: Urine Appearance CLEAR; Urine Bilirubin NEGATIVE (NEG); Urine Blood NEGATIVE (NEG); Urine Color YELLOW; Urine Glucose TRACE (NEG); Urine Protein NEGATIVE (NEG); Urine Urobilinogen 0.2 mg/dL (0.2-1.0)
[2018-09-08 06:22] LABS: Urine Microscopic Reflex NO UMIC
--- NOTE | 2018-09-08 06:33 | EKG ---
Test Date: 2018-09-08 Test Time: 00:36:42 Soloist Dancer: VIOLA MEASUREMENT RESULTS: Intervals: Rate: 95 OH: 164 QRSD: 90 QT: 370 QTc: 464 [place]: P: OH: 164 QRS: 75 T: 59 INTERPRETIVE STATEMENTS: Normal sinus rhythm Normal ECG Compared to ECG 08/27/2018 09:29:06 No significant changes Electronically Signed On 09-08-18 06:24:18 LEAD RELAY TESTER by Bertram Welch
[2018-09-08] MEDS ORDERED: IPRATROPIUM BROM 0.5MG/2.5ML NEB PRN (08:15)
[2018-09-08] MEDS ORDERED: ALBUTEROL 2.5 MG/3 ML NEB SOL NEB PRN (08:15)
[2018-09-08] MEDS ORDERED: D50W 25 GM/50 ML SYRINGE IV PRN (08:22)
[2018-09-08] MEDS ORDERED: GLUCAGON 1 MG/VIAL IM PRN (08:22)
[2018-09-08] MEDS ORDERED: INSULIN ASPART 35 UNIT SQ SCH (09:00)
[2018-09-08] MEDS: HOME MED 1 EA UNK (Ferrous Gluconate [Ferrous Gluconate] 1 TAB) PO SCH ×2 (09:00→21:00)
[2018-09-08] MEDS: HOME MED 1 EA UNK (Budesonide/Formoterol Fumarate [Symbicort 160-4.5 Mcg Inhaler] 2 PUFF) PO SCH ×2 (09:00→21:00)
[2018-09-08] MEDS ORDERED: INSULIN DETEMIR 70 UNIT SQ SCH (09:00)
--- NOTE | 2018-09-08 09:32 | RAD REPORT ---
EXAM DESCRIPTION: [place] Single View09/08/2018 1:13 am CLINICAL HISTORY: Chest pain COMPARISON: July 2018 FINDINGS: Small pleural effusions suspected. Medial right basilar opacity may represent pleural effusion, atelectasis or infiltrate. Heart is upper limits normal size
[2018-09-08] MEDS: SOTALOL HCL 80 MG TAB PO SCH ×2 (10:05→22:20)
[2018-09-08] MEDS: DOCUSATE NA 100 MG CAP PO SCH ×2 (10:05→22:23)
[2018-09-08] MEDS: ASPIRIN EC 81 MG TAB PO SCH (10:05)
[2018-09-08] MEDS: POTASSIUM CL SA 10 MEQ TAB PO SCH (10:06)
[2018-09-08] MEDS: FUROSEMIDE 40 MG TABLET PO SCH ×2 (10:06→17:24)
[2018-09-08] MEDS: APIXABAN 5 MG TABLET PO SCH ×2 (10:06→22:23)
[2018-09-08] MEDS: LOSARTAN POTASSIUM 50 MG TABLET PO SCH (10:06)
[2018-09-08] MEDS: BUDESONIDE, MICRONIZED 3 MG CAP PO SCH (10:06)
[2018-09-08] MEDS: GABAPENTIN 100 MG CAP PO SCH ×3 (10:07→22:23)
[2018-09-08] MEDS: METOPROLOL TAR 50 MG TAB PO SCH (10:07)
[2018-09-08] MEDS: FINASTERIDE 5 MG TAB PO SCH (10:08)
[2018-09-08] MEDS: INSULIN GLARGINE 100 UNITS/ML SQ SCH (10:39)
[2018-09-08] MEDS: INSULIN -REGULAR HUMAN 50 UNIT/0.5 ML ML SQ SCH ×3 (11:39→21:00)
[2018-09-08] MEDS: INSULIN LISPRO 100 UNIT/1 ML SQ SCH ×2 (13:50→22:24)
--- NOTE | 2018-09-08 14:11 | CON ---
History Of Present Illness: Mr. Burden is 73. He came to the hospital with chest pain. Since he has been here, CO was ruled out with serial EKGs and enzymes. Mr. Burden's chest pain was rather pleurit ic in nature and even this morning even though he is not having chest pain his chest hurts more in a sharp way if he takes a deep breath. He has a history of atrial fibrillation and has been well contr olled for the last 3 years with no episodes of atrial fibrillation. He does not have a history of in tracoronary stents or bypass surgery, but we suspect he has at least some CAD in the past. He was a heavy cigarette smoker. He has had renal insufficiency. He has had severe intestinal problem requir ing resection of large amounts of his intestine. He does not use tobacco anymore. Medications: His outpatient medications have been sotalol 120 b.i.d., potassium chloride, Protonix. It also says he takes metoprolol but that is not true, he does not. Losartan, ipratropium, insulin, several different forms of sliding scale, gabapentin furosemide, finasteride, iron gluconate, docusa te sodium, budesonide, formoterol, atorvastatin, Eliquis, and albuterol. Physical Examination: General: He is 6 feet tall, 220 pounds, appears to be chronically ill. Lot of bruising on his arms. Lungs: Do not reveal crackles or wheeze. Heart: Exam reveals a faint friction rub 1 component. Abdomen: Soft. Extremities: Within normal limits. Laboratory Data: His white blood cell count is normal. Hemoglobin 9.2. Troponins are both normal. Blood sugar 366. Impression: The patient probably has pericarditis or pleurisy causing a chest pain. I do not think it is an acute coronary syndrome. We will try colchicine, but his chest pain is for the most part re solved at this point, and at some point he should have a nuclear stress test. We could probably do that Mon. DHRUV/IVORY Voice ID: [id number] Report ID: [id number]
[2018-09-08] MEDS: ATORVASTATIN 40 MG TAB PO SCH (22:23)
[2018-09-08] MEDS: COLCHICINE 0.6 MG TAB PO SCH (22:23)
--- NOTE | 2018-09-09 05:04 | HP ---
Date of Admission: 09/08/2018 Chief Complaint: Heartburn, lower chest pain. History Of Present Illness: A 73-year-old male was brought to the emergency room because of indigest ion, heartburn, and lower chest and epigastric pain. The patient had evaluation done. His EKG and t roponin were negative. The patient is admitted for observation. Past Medical History: Extensive includes history of type 2 diabetes, hypertension. Other problems i nclude history of chronic atrial fibrillation, peripheral vascular disease, hyperlipidemia, hypertens ion, anxiety and depression. Family History: Type 2 diabetes present. Personal History: Currently nonsmoker. Home Medicines: Please refer to the chart. Review of Systems: The patient denied any history of fever, chills, rigors. Physical Examination: General: Revealed 73-year-old male, alert and oriented. HEENT: Otherwise negative. Neck: Supple. JVD negative. Chest: Few scattered wheezes. Heart: Irregularity noted. Abdomen: Soft. Extremities: No edema. Laboratory: White count normal. Troponin normal. Random blood sugar 366. Chest x-ray, no active infiltrate. Assessment: 1.Epigastric and lower chest pain. 2.Known chronic atrial fibrillation. 3.Type 2 diabetes, on insulin. 4.Hypertension. 5.Peripheral vascular disease and status post right leg amputation and left toe amputation. 6.Depression. 7.Chronic obstructive pulmonary disease. 8.Congestive heart failure compensated. Plan: The patient has been restarted on his medications. His troponin repeat is negative making a c [place] [facility] unlikely. Pending Cardiology consultation. He will be continued on this management. ZAIRA/IVORY Voice ID: [id number]
[2018-09-09] MEDS: METOPROLOL TAR 50 MG TAB PO SCH (05:38)
[2018-09-09] MEDS: PANTOPRAZOLE 40MG TABLET PO SCH (05:39)
[2018-09-09] MEDS: INSULIN -REGULAR HUMAN 50 UNIT/0.5 ML ML SQ SCH ×4 (07:30→21:00)
[2018-09-09] MEDS ORDERED: ALBUTEROL 2.5 MG/3 ML NEB SOL NEB PRN (08:00)
[2018-09-09] MEDS ORDERED: IPRATROPIUM BROM 0.5MG/2.5ML NEB PRN (08:00)
[2018-09-09] MEDS: INSULIN LISPRO 100 UNIT/1 ML SQ SCH ×3 (09:00→22:02)
[2018-09-09] MEDS: HOME MED 1 EA UNK (Budesonide/Formoterol Fumarate [Symbicort 160-4.5 Mcg Inhaler] 2 PUFF) PO SCH ×2 (09:00→21:00)
[2018-09-09] MEDS: INSULIN GLARGINE 100 UNITS/ML SQ SCH (09:00)
[2018-09-09] MEDS: GABAPENTIN 100 MG CAP PO SCH ×3 (09:32→22:00)
[2018-09-09] MEDS: FINASTERIDE 5 MG TAB PO SCH (09:32)
[2018-09-09] MEDS: SOTALOL HCL 80 MG TAB PO SCH ×2 (09:32→22:01)
[2018-09-09] MEDS: ASPIRIN EC 81 MG TAB PO SCH (09:32)
[2018-09-09] MEDS: DOCUSATE NA 100 MG CAP PO SCH ×2 (09:32→22:00)
[2018-09-09] MEDS: COLCHICINE 0.6 MG TAB PO SCH ×2 (09:32→22:00)
[2018-09-09] MEDS: FUROSEMIDE 40 MG TABLET PO SCH ×2 (09:33→17:07)
[2018-09-09] MEDS: FERROUS SULFATE 325 MG TAB PO SCH ×2 (09:33→22:00)
[2018-09-09] MEDS: LOSARTAN POTASSIUM 50 MG TABLET PO SCH (09:33)
[2018-09-09] MEDS: BUDESONIDE, MICRONIZED 3 MG CAP PO SCH (09:33)
[2018-09-09] MEDS: APIXABAN 5 MG TABLET PO SCH ×2 (09:33→22:00)
[2018-09-09] MEDS: POTASSIUM CL SA 10 MEQ TAB PO SCH (09:33)
[2018-09-09] MEDS: ATORVASTATIN 40 MG TAB PO SCH (22:00)
--- NOTE | 2018-09-10 02:47 | PN ---
The patient does not have chest pain anymore. He is stable and he is scheduled for a stress test in a.. ZAIRA/IVORY Voice ID: [id number] Report ID: [id number]
[2018-09-10] MEDS: PANTOPRAZOLE 40MG TABLET PO SCH (05:21)
[2018-09-10] MEDS: INSULIN -REGULAR HUMAN 50 UNIT/0.5 ML ML SQ SCH ×3 (07:30→16:30)
[2018-09-10] MEDS: INSULIN LISPRO 100 UNIT/1 ML SQ SCH ×2 (09:00→14:00)
[2018-09-10] MEDS: ASPIRIN EC 81 MG TAB PO SCH (09:00)
[2018-09-10] MEDS: METOPROLOL TAR 50 MG TAB PO SCH (09:00)
[2018-09-10] MEDS: HOME MED 1 EA UNK (Budesonide/Formoterol Fumarate [Symbicort 160-4.5 Mcg Inhaler] 2 PUFF) PO SCH (09:00)
[2018-09-10] MEDS: LOSARTAN POTASSIUM 50 MG TABLET PO SCH (09:00)
[2018-09-10] MEDS: DOCUSATE NA 100 MG CAP PO SCH (09:00)
[2018-09-10] MEDS: BUDESONIDE, MICRONIZED 3 MG CAP PO SCH (09:00)
[2018-09-10] MEDS: INSULIN GLARGINE 100 UNITS/ML SQ SCH (09:00)
[2018-09-10] MEDS: FUROSEMIDE 40 MG TABLET PO SCH ×2 (09:00→18:00)
[2018-09-10] MEDS: APIXABAN 5 MG TABLET PO SCH (09:00)
[2018-09-10] MEDS: FERROUS SULFATE 325 MG TAB PO SCH (09:00)
[2018-09-10] MEDS: COLCHICINE 0.6 MG TAB PO SCH (09:00)
[2018-09-10] MEDS: FINASTERIDE 5 MG TAB PO SCH (09:00)
[2018-09-10] MEDS: POTASSIUM CL SA 10 MEQ TAB PO SCH (09:00)
[2018-09-10] MEDS: GABAPENTIN 100 MG CAP PO SCH ×2 (09:00→14:00)
[2018-09-10] MEDS: SOTALOL HCL 80 MG TAB PO SCH (09:00)
[2018-09-10] MEDS ORDERED: REGADENOSON 0.4 MG/5 ML SYR IV ONE (09:06)
--- NOTE | 2018-09-10 14:48 | RAD REPORT ---
EXAM DESCRIPTION: NM - Rest Stress Cardiac Imaging - 09/10/2018 2:36 pm CLINICAL HISTORY: Chest pain COMPARISON: None. TECHNIQUE: The patient was administered approximately 10 mCi of Tc 99m Sestamibi prior to resting SP ECT imaging of the heart. The patient was then administered approximately 30 mCi of Tc 99m Sestamibi following exercise or pharmacologic stress. Multiplanar SPECT images were reviewed. FINDINGS: The end diastolic volume is 96 ml, the end systolic volume is 56 ml, and the ejection frac tion is 42 %. Moderately large fixed defect is present extending along the inferior wall from base to apex. This co uld be scarring, attenuation artifact or a combination. No stress-induced ischemic changes are identi fiable. No other areas of possible scarring identified. IMPRESSION: No stress-induced ischemia. Large fixed defect running from base to apex along the inferior wall. This could be scarring, attenua tion artifact or a combination. Ventricular volumes are normal range. Ejection fraction is below normal at 42%.
[2018-09-10 18:04] VITALS: BP 136/63; TEMP 97.2
[2018-09-10 18:17] VITALS: O2SAT 100
--- NOTE | 2018-09-11 08:22 | TREADPHA ---
DX: CHEST PAIN Date of Study: 09/10/11 Ht: 6 0 Wt: 220 lb 3.2 oz Consulting Physician: SUKHWINDER MEDICATIONS: TYLENOL, PROVENTIL, ELIQUIS, ASPIRIN, LIPITOR, ENTOCORT, PROTONIX, COLRYS, DEXTROSE, FEOSOL, PROSCAR, LASIX, NEURONITIN, GLUCAGEN, LANTUS, HUMALOG, NOVALIN, ATROVENT, COZAAR, LOPRESSOR, POTASSIUM. HISTORY: 73 YEAR OLD MALE HERE FOR CHEST PAIN. HISTORY OF ATRIAL FIBRILLATION, CONGESTIVE HEART FAILURE, COPD, DEPRESSION, DIABETES, HYPERLIPIDEMIA, HYPERTENSION. PHYSICIAL EXAMINATION: RESTING B.P.: 150/70 RESTING H.R.: 77 RESTING EKG: SINUS RHYTHM, PROLONG QT OTHERWISE NORMAL. PROTOCOL: LEXISCAN EXERCISE TIME: 3:30 B.P. AT [place]AK STRESS: 133/62 IMPRESSION: LEXISCAN STRESS TEST DONE. CARDIOLITE INJECTED PER PROTOCOL. RARE PREMATURE VENTRICULAR COMPLEXES NOTED DURING TEST. DENIES ANY PAIN. SEE NUCLEAR MEDICINE REPORT. NON DIAGNOSTIC EKG WITH LEXSICAN STRESS.
== END 2018-09-10 18:48 | disposition home or self-care (01) ==
LOC: ER 00:33 → ERHOLD 04:04 → 2ND 04:31
PROVIDERS: ADMIT Internal Medicine; ATTEND Internal Medicine
DX: R07.9 Chest pain, unspecified (principal); R10.13 Epigastric pain; I48.2 Chronic atrial fibrillation; E11.9 Type 2 diabetes mellitus without complications; I73.9 Peripheral vascular disease, unspecified; E78.5 Hyperlipidemia, unspecified; F41.8 Other specified anxiety disorders; J44.9 Chronic obstructive pulmonary disease, unspecified; I11.0 Hypertensive heart disease with heart failure; I50.9 Heart failure, unspecified
CPT/HCPCS: 36415; 71045; 78452; 80048; 80076; 81003; 82962 ×12; 83735; 83880; 84484 ×3; 85025; 85610; 93005; 93017; 94640; 96365; 96375; 99285; A9500; G0378 ×2; J2785

== ENCOUNTER 2018-09-17 06:19 | Emergency (ER) | payer OTHER ==
--- OUTSIDE RECORDS SUMMARY | 2018-09-17 06:21 | XMS REPORT | Clinical Summary ---
:1945 Author Organization [facility] Address [address] [place] [address] Care Team Providers Name Role Phone Asked, [...] Not on file Results Not on fileafter 09/16/2017 Insurance Payer Benefit Plan / Group Subscriber ID Type Phone Address [facility] xxxxxxxxx HMO Advance Directives Patient has advance care planning documents, and code status on file. For more information, please contact:Ari [address] [place] [address] Code Status Date Activated Date Inactivated Comments Full Code 05/24/2016 9:28 PM 05/26/2016 4:41 PM Code Status decision reached by: Patient
[2018-09-17 07:13] LABS: Absolute Lymphocytes (CBC) 1.5 K/uL (0.7-4.9); Absolute Monocytes 0.7 K/uL (0.1-1.3); Absolute Neutrophil 6.4 K/uL (1.8-8.0); Eosinophils % 2.5 % (0-4.4); Lymphocytes % 17.1 % (15.3-44.8); MPV 8.1 fL (7.6-11.3); Monocytes % 7.6 % (3.3-12.3); RBC Red Blood Cell Count 3.24 M/uL (4.33-5.43)
[2018-09-17 07:16] LABS: Protime INR 1.19
[2018-09-17 07:34] LABS: ALT/SGPT 22 U/L (12-78); AST/SGOT 10 U/L (15-37); Albumin 2.7 g/dL (3.4-5.0); Alkaline Phosphatase 167 U/L (45-117); BUN Blood Urea Nitrogen 55 mg/dL (7-18); Bicarbonate 31 mmol/L (21-32); Bilirubin Direct < 0.1 mg/dL (0-0.2); Bilirubin Total 0.2 mg/dL (0.2-1.0); Glucose Level 302 mg/dL (74-106); Magnesium 2.1 mg/dL (1.8-2.4); NT PRO-BNP 363 pg/mL (<125); Protein, Total 7.2 g/dL (6.4-8.2); Sodium Level 137 mmol/L (136-145); Troponin (Emerg Dept Use Only) < 0.02 ng/mL (0.0-0.045)
--- NOTE | 2018-09-17 07:38 | EKG ---
Test Date: 2018-09-17 Test Time: 06:21:35 Manager Drug: PHILIPPE MEASUREMENT RESULTS: Intervals: Rate: 71 NH: 170 QRSD: 88 QT: 454 QTc: 493 Candia: P: NH: 170 QRS: 68 T: 64 INTERPRETIVE STATEMENTS: Normal sinus rhythm Prolonged QT Abnormal ECG Compared to ECG 09/08/2018 00:36:42 Prolonged QT interval now present Electronically Signed On 09-17-18 07:37:25 BANK COMPLIANCE OFFICER by Jose Rubio
--- NOTE | 2018-09-17 07:52 | RAD REPORT ---
EXAM DESCRIPTION: CT - Head Brain Wo Cont - 09/17/2018 7:08 am CLINICAL HISTORY: Dizziness COMPARISON: None. 2017 TECHNIQUE: Computed axial tomography of the head was obtained. IV contrast was not requested. All CT scans are performed using dose optimization technique as appropriate and may include automated exposure control or mA/KV adjustment according to patient size. FINDINGS: An intracranial bleed is not seen . The ventricles are normal in caliber. No extra-axial fluid collection is noted. Small amount of fluid is present within the left maxillary sinus which may indicate acute sinusitis IMPRESSION: No acute intracranial abnormality is seen. If patient's symptoms persist MRI of the bra in would be recommended.
--- NOTE | 2018-09-17 08:04 | RAD REPORT ---
EXAM DESCRIPTION: [place] Single View09/17/2018 6:53 am CLINICAL HISTORY: Shortness of breath COMPARISON: September 08, 2018 FINDINGS: Minimal left pleural effusion may be present. Left lung appears clear of acute infiltrate . Area of scarring or subsegmental axis present within mid right lung. Heart is mildly enlarged
[2018-09-17] MEDS ORDERED: NA CHLORIDE 0.9% 100 ML IV ONE (08:24)
--- NOTE | 2018-09-17 09:01 | ER ---
Nurse's Notes [facility] Name: Jethro Burden Age: 73 yrs Sex: Male : 1945 Arrival Date: 09/17/2018 Time: 06:23 Bed 19 Private MD: Diagnosis: Syncope and collapse;Hyperglycemia, unspecified Presentation: 09/17 06:24 Presenting complaint: EMS states: pt's called stating she found pt on the floor aa1 near the couch this am with c/o dizziness. States he got up during the night to go to the kitchen and thinks he may have passed out. Denies injury. C/O dizziness. NAD noted. A\T\O x 4. Transition of care: patient was not received from another setting of care. Onset of symptoms was September 17, 2018. Risk Assessment: Do you want to hurt yourself or someone else? Patient reports no desire to harm self or others. Initial Sepsis Screen: Does the patient meet any 2 criteria? No. Patient's initial sepsis screen is negative. Does the patient have a suspected source of infection? No. Patient's initial sepsis screen is negative. Care prior to arrival: Glucose check: 300 Oxygen administered. via nasal cannula. 06:24 Method Of Arrival: EMS: [facility] aa1 06:24 Acuity: TAN 3 aa1 Triage Assessment: 06:29 General: Appears in no apparent distress. comfortable, Behavior is calm, cooperative, aa1 appropriate for age. Historical: - Allergies: 06:29 NKDA; aa1 - Home Meds: 06:29 albuterol sulfate 2.5 mg /3 mL (0.083 %) Inhl nebu 3 mL Q4H prn [Active]; apixaban 5 mg aa1 Oral 1 tab 2 times per day [Active]; aspirin 81 mg Oral TbEC 1 tab once daily [Active]; atorvastatin 80 mg Oral tab 0.5 tab once daily [Active]; budesonide 3 mg Oral CECX 3 caps once daily [Active]; budesonide-formoterol inhalation 2 puffs 2 times per day [Active]; docusate sodium 100 mg Oral cap 1 cap 2 times per day [Active]; ferrous gluconate 324 mg (36 mg iron) Oral tab twice a day [Active]; finasteride 5 mg Oral tab 1 tab once daily [Active]; furosemide 40 mg Oral tab 3 tabs in am and 2 tabs in pm [Active]; gabapentin 100 mg Oral cap 1 caps 3 times per day [Active]; insulin aspart subcutaneous 35 unit three times a day [Active]; insulin detemir subcutaneous 70 units in am and 45 units in pm [Active]; ipratropium bromide 0.02 % inhalation soln 2.5 mL every 6 hours [Active]; losartan 100 mg Oral tab 1 tab once daily [Active]; magnesium oxide 420 mg Oral tab daily [Active]; metoprolol tartrate 50 mg Oral tab 1 tab once daily [Active]; pantoprazole 40 mg Oral TbEC 1 tab once daily [Active]; potassium chloride 10 mEq Oral cpER 2 caps once daily [Active]; sotalol 120 mg Oral tab 1 tab 2 times per day [Active]; - PMHx: 06:29 Atrial Fib; CHF; COPD; Crohn's; Depression; Diabetes - IDDM; Hyperlipidemia; aa1 Hypertension; prostate problems; - PSHx: 06:29 toe amputations on left foot; aa1 - Immunization history:: Flu vaccine is up to date. - Social history:: Smoking status: Patient/guardian denies using tobacco. - Ebola Screening: : No symptoms or risks identified at this time. Screenin:28 Abuse screen: Denies threats or abuse. Nutritional screening: No deficits noted. jd3 Tuberculosis screening: No symptoms or risk factors identified. Fall Risk Fall in past 12 months (25 points). Ambulatory Aid- Crutches/Cane/Walker (15 pts). Gait- Weak (10 pts.). Mental Status- Oriented to own ability (0 pts). Total Strong Fall Scale indicates High Risk Score (45 or more points). Fall prevention measures have been instituted. Side Rails Up X 2 Placed Close to Nursing Station Frequent Obs/Assessments Occuring. Assessment: 06:26 General: Appears in no apparent distress. uncomfortable, Behavior is calm, cooperative, jd3 appropriate for age. Pain: Complains of pain in chest Quality of pain is described as pressure. Neuro: Level of Consciousness is awake, alert, obeys commands, Oriented to person, place, time, situation, Appropriate for age Speech is normal, Facial symmetry appears normal, Pupils are PERRLA, Reports dizziness, since yesterday a syncopal episode. Cardiovascular: Reports chest pain, Heart tones S1 S2 present Capillary refill < 3 seconds Patient's skin is warm and dry. Rhythm is regular. Respiratory: Airway is patent Respiratory effort is even, unlabored, Respiratory pattern is regular, symmetrical, Breath sounds are clear bilaterally. GI: Abdomen is round non-distended, Bowel sounds present X 4 quads. Abd is soft and non tender X 4 quads. Patient currently denies nausea, vomiting. : No signs and/or symptoms were reported regarding the genitourinary system. EENT: No signs and/or symptoms were reported regarding the EENT system. Derm: Skin is intact, Skin is dry, Skin is normal, Skin temperature is warm. 07:20 Reassessment: Patient appears in no apparent distress at this time. Patient and/or hb family updated on plan of care and expected duration. Pain level reassessed. Patient is alert, oriented x 3, equal unlabored respirations, skin warm/dry/pink. 08:15 Reassessment: Patient appears in no apparent distress at this time. No changes from hb previously documented assessment. Patient and/or family updated on plan of care and expected duration. Pain level reassessed. Patient is alert, oriented x 3, equal unlabored respirations, skin warm/dry/pink. 09:15 Reassessment: Patient appears in no apparent distress at this time. Patient and/or hb family updated on plan of care and expected duration. Pain level reassessed. Patient is alert, oriented x 3, equal unlabored respirations, skin warm/dry/pink. Patient states symptoms have improved. Vital Signs: 06:29 BP 140 / 66; Pulse 72; Resp 20; Pulse Ox 98% on R/A; Weight 92.08 kg; Height 6 ft. 0 aa1 in. (182.88 cm); Pain 7/10; 07:49 BP 150 / 70 Supine; Pulse 71; Resp 13; Pulse Ox 100% on 3 lpm NC; dh3 07:51 BP 136 / 62 Sitting; Pulse 73; Resp 13; Pulse Ox 100% on 3 lpm NC; dh3 07:53 BP 131 / 63 Standing; Pulse 74; Resp 15; Pulse Ox 100% on 3 lpm NC; dh3 09:00 BP 132 / 66; Pulse 70; Resp 16; Pulse Ox 99% on 3 lpm NC; hb 06:29 Body Mass Index 27.53 (92.08 kg, 182.88 cm) aa1 07:53 Pt could not stand entire time due to leg pain, states leg pain is normal for him. formerly [facility] ED Course: 06:23 Patient arrived in ED. aa1 06:26 Gulshan Riley, RN is Primary Nurse. jd3 06:28 Triage completed. aa1 06:28 Patient has correct armband on for positive identification. Bed in low position. Call jd3 light in reach. Side rails up X2. 06:29 Arm band placed on. jd3 06:30 Sandhya Aldrich FNP-C [facility]. kb 06:30 Mo Gambino MD is Attending Physician. kb 06:43 EKG done. jd3 06:54 CXR XRAY In Process Unspecified. EDMS 06:55 Missed attempt(s): 20 gauge in right antecubital area. Bleeding controlled, band aid jd3 applied, catheter tip intact. 06:59 Inserted saline lock: 20 gauge in right antecubital area, using aseptic technique. jd3 Blood collected. 07:05 Report given to Earline MCKEE. jd3 07:07 CT Head Brain wo Cont In Process Unspecified. EDMS 07:07 CT completed. Patient tolerated procedure well. Patient moved to CT via stretcher. jg6 Patient moved back from CT. 09:31 No provider procedures requiring assistance completed. IV discontinued, intact, hb bleeding controlled, No redness/swelling at site. Pressure dressing applied. Administered Medications: 08:15 Drug: NS 0.9% 1000 ml Route: IV; Rate: 1000 ml; Site: right antecubital; hb Point of Care Testing: Blood Glucose: 09:03 Blood Glucose: 296 mg/dL; hb Ranges: Outcome: 09:01 Discharge ordered by . kb 09:31 Discharged to home via wheelchair, with family. hb 09:31 Condition: stable 09:31 Discharge instructions given to patient, family, Instructed on discharge instructions, follow up and referral plans. medication usage, Demonstrated understanding of instructions, follow-up care, medications. 09:32 Patient left the ED. hb Signatures: Dispatcher [employer] EDTN Sandhya Aldrich FNP-C FNP-Ckb Kern, Alissa, RN RN aa1 Earline Carrero RN RN Thu Jones formerly [facility] Gulshan Riley RN RN jd3 Elizabeth New jg6
--- NOTE | 2018-09-17 09:02 | EDPHYS ---
Physician Documentation [facility] Name: Jethro Burden Age: 73 yrs Sex: Male : 1945 Arrival Date: 09/17/2018 Time: 06:23 Bed 19 Private MD: ED Physician Mo Gambino HPI: 09/17 07:11 This 73 yrs old Male presents to ER via EMS with complaints of Dizziness. kb 07:11 The patient has experienced syncope, collapsed. Onset: The symptoms/episode kb began/occurred this morning. Duration: This was a single episode. Context: the episode(s) was witnessed, by no one, occurred at home, occurred while the patient was walking, Just prior to the episode the patient experienced no apparent symptoms. Associated injury: The patient did not suffer any apparent associated injury. Associated signs and symptoms: Pertinent positives: dizziness, Pertinent negatives: abdominal pain, agitation, ataxia, blurred vision, chest pain, combativeness, confusion, diaphoresis, diarrhea, headache, lightheadedness, nausea, numbness, palpitations, seizure, shortness of breath, tingling, vertigo, vomiting, weakness. Current symptoms: Currently, the patient is not experiencing any symptoms. The patient has not experienced similar symptoms in the past. The patient has not recently seen a physician. Pt reports he got up to use to restroom and was going to do a breathing treatment while he was up, but didn't make it to his chair. Reports he passed out and fell while walking. Denies any symptoms prior to episode. Now reports dizziness. Pt A\T\Ox4. Pt reports he is unsure of what time he fell, but woke up on his own and called out for help. Historical: - Allergies: 06:29 NKDA; aa1 - Home Meds: 06:29 albuterol sulfate 2.5 mg /3 mL (0.083 %) Inhl nebu 3 mL Q4H prn [Active]; apixaban 5 mg aa1 Oral 1 tab 2 times per day [Active]; aspirin 81 mg Oral TbEC 1 tab once daily [Active]; atorvastatin 80 mg Oral tab 0.5 tab once daily [Active]; budesonide 3 mg Oral CECX 3 caps once daily [Active]; budesonide-formoterol inhalation 2 puffs 2 times per day [Active]; docusate sodium 100 mg Oral cap 1 cap 2 times per day [Active]; ferrous gluconate 324 mg (36 mg iron) Oral tab twice a day [Active]; finasteride 5 mg Oral tab 1 tab once daily [Active]; furosemide 40 mg Oral tab 3 tabs in am and 2 tabs in pm [Active]; gabapentin 100 mg Oral cap 1 caps 3 times per day [Active]; insulin aspart subcutaneous 35 unit three times a day [Active]; insulin detemir subcutaneous 70 units in am and 45 units in pm [Active]; ipratropium bromide 0.02 % inhalation soln 2.5 mL every 6 hours [Active]; losartan 100 mg Oral tab 1 tab once daily [Active]; magnesium oxide 420 mg Oral tab daily [Active]; metoprolol tartrate 50 mg Oral tab 1 tab once daily [Active]; pantoprazole 40 mg Oral TbEC 1 tab once daily [Active]; potassium chloride 10 mEq Oral cpER 2 caps once daily [Active]; sotalol 120 mg Oral tab 1 tab 2 times per day [Active]; - PMHx: 06:29 Atrial Fib; CHF; COPD; Crohn's; Depression; Diabetes - IDDM; Hyperlipidemia; aa1 Hypertension; prostate problems; - PSHx: 06:29 toe amputations on left foot; aa1 - Immunization history:: Flu vaccine is up to date. - Social history:: Smoking status: Patient/guardian denies using tobacco. - Ebola Screening: : No symptoms or risks identified at this time. ROS: 07:24 Constitutional: Negative for fever, chills, and weight loss, Eyes: Negative for injury, kb pain, redness, and discharge, ENT: Negative for injury, pain, and discharge, Neck: Negative for injury, pain, and swelling, Cardiovascular: Negative for chest pain, palpitations, and edema, Respiratory: Negative for shortness of breath, cough, wheezing, and pleuritic chest pain, Abdomen/GI: Negative for abdominal pain, nausea, vomiting, diarrhea, and constipation, Back: Negative for injury and pain, MS/Extremity: Negative for injury and deformity, Skin: Negative for injury, rash, and discoloration. 07:24 Neuro: Positive for dizziness, syncope. Exam: 07:22 Constitutional: This is a well developed, well nourished patient who is awake, alert, kb and in no acute distress. Head/Face: Normocephalic, atraumatic. Eyes: Pupils equal round and reactive to light, extra-ocular motions intact. Lids and lashes normal. Conjunctiva and sclera are non-icteric and not injected. Cornea within normal limits. Periorbital areas with no swelling, redness, or edema. ENT: Nares patent. No nasal discharge, no septal abnormalities noted. Tympanic membranes are normal and external auditory canals are clear. Oropharynx with no redness, swelling, or masses, exudates, or evidence of obstruction, uvula midline. Mucous membranes moist. Neck: Trachea midline, no thyromegaly or masses palpated, and no cervical lymphadenopathy. Supple, full range of motion without nuchal rigidity, or vertebral point tenderness. No Meningismus. Chest/axilla: Normal chest wall appearance and motion. Nontender with no deformity. No lesions are appreciated. Cardiovascular: Regular rate and rhythm with a normal S1 and S2. No gallops, murmurs, or rubs. Normal PMI, no JVD. No pulse deficits. Respiratory: Lungs have equal breath sounds bilaterally, clear to auscultation and percussion. No rales, rhonchi or wheezes noted. No increased work of breathing, no retractions or nasal flaring. Abdomen/GI: Soft, non-tender, with normal bowel sounds. No distension or tympany. No guarding or rebound. No evidence of tenderness throughout. Skin: Warm, dry with normal turgor. Normal color with no rashes, no lesions, and no evidence of cellulitis. MS/ Extremity: Pulses equal, no cyanosis. Neurovascular intact. Full, normal range of motion. Neuro: Awake and alert, GCS 15, oriented to person, place, time, and situation. Cranial nerves II-XII grossly intact. Motor strength 5/5 in all extremities. Prosthesis in place to RLE. Sensory grossly intact. Cerebellar exam normal. Normal gait. Vital Signs: 06:29 BP 140 / 66; Pulse 72; Resp 20; Pulse Ox 98% on R/A; Weight 92.08 kg; Height 6 ft. 0 aa1 in. (182.88 cm); Pain 7/10; 07:49 BP 150 / 70 Supine; Pulse 71; Resp 13; Pulse Ox 100% on 3 lpm NC; dh3 07:51 BP 136 / 62 Sitting; Pulse 73; Resp 13; Pulse Ox 100% on 3 lpm NC; 3 07:53 BP 131 / 63 Standing; Pulse 74; Resp 15; Pulse Ox 100% on 3 lpm NC; 3 09:00 BP 132 / 66; Pulse 70; Resp 16; Pulse Ox 99% on 3 lpm NC; hb 06:29 Body Mass Index 27.53 (92.08 kg, 182.88 cm) aa1 07:53 Pt could not stand entire time due to leg pain, states leg pain is normal for him. 3 MDM: 06:30 Patient medically screened. kb 07:22 Data reviewed: vital signs, nurses notes. Data interpreted: Pulse oximetry: on room air kb is 98 %. Interpretation: normal. 09:00 Counseling: I had a detailed discussion with the patient and/or guardian regarding: the kb historical points, exam findings, and any diagnostic results supporting the discharge/admit diagnosis, lab results, radiology results, the need for outpatient follow up, a family practitioner, to return to the emergency department if symptoms worsen or persist or if there are any questions or concerns that arise at home. 09:00 ED course: Pt reports he is feeling better. kb 09/17 06:47 Order name: Basic Metabolic Panel; Complete Time: 07:35 kb 09/17 06:47 Order name: CBC with Diff; Complete Time: 07:24 kb 09/17 06:47 Order name: LFT's; Complete Time: 07:35 kb 09/17 06:47 Order name: Magnesium; Complete Time: 07:35 kb 09/17 06:47 Order name: NT PRO-BNP; Complete Time: 07:35 kb 09/17 06:47 Order name: PT-INR; Complete Time: 07:31 kb 09/17 06:43 Order name: CXR XRAY; Complete Time: 08:06 aa1 09/17 06:47 Order name: Troponin (emerg Dept Use Only); Complete Time: 07:35 kb 09/17 06:47 Order name: EKG; Complete Time: 06:48 kb 09/17 06:47 Order name: Cardiac monitoring; Complete Time: 06:47 kb 09/17 06:47 Order name: CT Head Brain wo Cont; Complete Time: 07:53 kb 09/17 09:05 Order name: Glucose, Ancillary Testing; Complete Time: 09:05 EDMS 02/18 06:47 Order name: EKG - Nurse/Tech; Complete Time: 06:47 kb 09/17 06:47 Order name: IV Saline Lock; Complete Time: 07:07 kb 09/17 06:47 Order name: Labs collected and sent; Complete Time: 07:07 kb 09/17 06:47 Order name: O2 Per Protocol; Complete Time: 06:47 kb 09/17 06:47 Order name: O2 Sat Monitoring; Complete Time: 06:47 kb 09/17 07:36 Order name: Orthostatics; Complete Time: 08:00 kb Administered Medications: 08:15 Drug: NS 0.9% 1000 ml Route: IV; Rate: 1000 ml; Site: right antecubital; hb Point of Care Testing: Blood Glucose: 09:03 Blood Glucose: 296 mg/dL; hb Ranges: Critical Glucose Levels:Adult <50 mg/dl or >400 mg/dl <40 mg/dl or >180 mg/dl Disposition: 09/17/18 09:01 Discharged to Home. Impression: Syncope and collapse, Hyperglycemia, unspecified. - Condition is Stable. - Discharge Instructions: Syncope, [id number], Hyperglycemia, [id number]. - Medication Reconciliation Form, Thank You Letter, Antibiotic Education, Prescription Opioid Use form. - Follow up: Emergency Department; When: As needed; Reason: Worsening of condition. Follow up: Private Physician; When: 2 - 3 days; Reason: Recheck today's complaints, Continuance of care, Re-evaluation by your physician. Signatures: Dispatcher [employer] [facility] Sandhya Aldrich, MODEL MAKING SUPERVISOR-C MODEL MAKING SUPERVISOR-Cynthia Herrera, RN RN aa1 Earline Carrero, RYLEE RN Corrections: (The following items were deleted from the chart) 06:54 06:48 Chest Single View+RAD.[email or web address].[email or web address] ordered. [facility] 07:22 07:11 Pt reports he got up to use to restroom and was going to do a breathing treatment kb while he was up, but didn't make it to his chair. Reports he passed out and fell while walking. Denies any symptoms prior to episode. Now reports dizziness. Pt A\T\Ox4. . kb 09:32 09:01 09/17/2018 09:01 Discharged to Home. Impression: Syncope and collapse; hb Hyperglycemia, unspecified. Condition is Stable. Forms are Medication Reconciliation Form, Thank You Letter, Antibiotic Education, Prescription Opioid Use. Follow up: Emergency Department; When: As needed; Reason: Worsening of condition. Follow up: Private Physician; When: 2 - 3 days; Reason: Recheck today's complaints, Continuance of care, Re-evaluation by your physician. kb
[2018-09-17 09:58] VITALS: BP 132/66; O2SAT 99
== END 2018-09-17 09:32 | disposition home or self-care (01) ==
LOC: ER 06:19
DX: R55 Syncope and collapse (principal); E11.65 Type 2 diabetes mellitus with hyperglycemia; I48.91 Unspecified atrial fibrillation; I11.0 Hypertensive heart disease with heart failure; I50.9 Heart failure, unspecified; J44.9 Chronic obstructive pulmonary disease, unspecified; K50.90 Crohn's disease, unspecified, without complications; E78.5 Hyperlipidemia, unspecified; Z79.82 Long term (current) use of aspirin; Z79.4 Long term (current) use of insulin
CPT/HCPCS: 36415; 70450; 71045; 80048; 80076; 82962; 83735; 83880; 84484; 85025; 85610; 93005

== ENCOUNTER 2018-09-18 20:55 | Observation (INO) | payer OTHER ==
--- OUTSIDE RECORDS SUMMARY | 2018-09-18 20:57 | XMS REPORT | Clinical Summary ---
:1945 Author Organization [facility] Address [address] [place] [address] Care Team Providers Name Role Phone Asked, [...] Not on file Results Not on fileafter 09/17/2017 Insurance Payer Benefit Plan / Group Subscriber ID Type Phone Address [facility] xxxxxxxxx HMO Advance Directives Patient has advance care planning documents, and code status on file. For more information, please contact:Ari Hernandez[address] [place] [address] Code Status Date Activated Date Inactivated Comments Full Code 05/24/2016 9:28 PM 05/26/2016 4:41 PM Code Status decision reached by: Patient
[2018-09-18 21:56] LABS: Absolute Lymphocytes (CBC) 1.7 K/uL (0.7-4.9); Absolute Neutrophil 10.6 K/uL (1.8-8.0); Eosinophils % 2.4 % (0-4.4); Hematocrit 26.8 % (39.6-49.0); Lymphocytes % 12.4 % (15.3-44.8); MPV 8.2 fL (7.6-11.3); Monocytes % 7.5 % (3.3-12.3); RBC Red Blood Cell Count 2.99 M/uL (4.33-5.43)
[2018-09-18 22:14] LABS: Potassium 4.1 mmol/L (3.5-5.1)
[2018-09-18] MEDS ORDERED: VANCOMYCIN 1 GM/VIAL ONE (22:54)
[2018-09-18] MEDS ORDERED: NA CHLORIDE 0.9% 250 ML ONE (22:55)
[2018-09-18] MEDS ORDERED: MEPERIDINE HCL 25 MG/0.5 ML ONE (23:26)
--- NOTE | 2018-09-18 23:44 | EDPHYS ---
Physician Documentation [facility] Name: Jethro Burden Age: 73 yrs Sex: Male : 1945 Arrival Date: 09/18/2018 Time: 20:59 Bed 26 Private MD: Cordell Herrera R ED Physician Adam Gayle HPI: 09/18 23:38 This 73 yrs old Male presents to ER via Wheelchair with complaints of Leg rn Swelling, Leg Pain. 23:39 The patient presents with cellulitis of the left leg. rn 23:39 Onset: The symptoms/episode began/occurred at an unknown time. Severity of symptoms: At rn their worst the symptoms were moderate, in the emergency department the symptoms are unchanged. The patient has experienced similar episodes in the past. Reports worsening redness and drainage of left foot and leg. . Historical: - Allergies: 21:11 NKDA; lp1 - Home Meds: 21:11 albuterol sulfate 2.5 mg /3 mL (0.083 %) Inhl nebu 3 mL Q4H prn [Active]; apixaban 5 mg lp1 Oral 1 tab 2 times per day [Active]; aspirin 81 mg Oral TbEC 1 tab once daily [Active]; atorvastatin 80 mg Oral tab 0.5 tab once daily [Active]; budesonide 3 mg Oral CECX 3 caps once daily [Active]; budesonide-formoterol inhalation 2 puffs 2 times per day [Active]; docusate sodium 100 mg Oral cap 1 cap 2 times per day [Active]; ferrous gluconate 324 mg (36 mg iron) Oral tab twice a day [Active]; finasteride 5 mg Oral tab 1 tab once daily [Active]; furosemide 40 mg Oral tab 3 tabs in am and 2 tabs in pm [Active]; gabapentin 100 mg Oral cap 1 caps 3 times per day [Active]; insulin aspart subcutaneous 35 unit three times a day [Active]; insulin detemir subcutaneous 70 units in am and 45 units in pm [Active]; ipratropium bromide 0.02 % inhalation soln 2.5 mL every 6 hours [Active]; losartan 100 mg Oral tab 1 tab once daily [Active]; magnesium oxide 420 mg Oral tab daily [Active]; metoprolol tartrate 50 mg Oral tab 1 tab once daily [Active]; pantoprazole 40 mg Oral TbEC 1 tab once daily [Active]; potassium chloride 10 mEq Oral cpER 2 caps once daily [Active]; sotalol 120 mg Oral tab 1 tab 2 times per day [Active]; - PMHx: 21:11 Atrial Fib; CHF; COPD; Crohn's; Depression; Diabetes - IDDM; Hyperlipidemia; lp1 Hypertension; prostate problems; - Immunization history:: Adult Immunizations up to date. - Social history:: Smoking status: Patient/guardian denies using tobacco, the patient reports quitting approximately 15 years ago. - Ebola Screening: : No symptoms or risks identified at this time. - Family history:: not pertinent. - Hospitalizations: : No recent hospitalization is reported. 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 Exam: 23:39 Constitutional: This is a well developed, well nourished patient who is awake, alert, rn and in no acute distress. Head/Face: Normocephalic, atraumatic. ENT: MMM Respiratory: + mild tachypnea with faint wheezing, speaking full sentences Abdomen/GI: soft, non-tender Skin: + blanching erythema and warmth LLE, left at site of 2nd toe amputation with mild drainage and foul smell, no necrosis MS/ Extremity: + RLE amputation, LLE with normal ROM, faint distal pulse Neuro: Awake and alert, GCS 15, oriented to person, place, time, and situation. Vital Signs: 21:12 BP 145 / 44; Pulse 70; Resp 18; Temp 98.1(O); Pulse Ox 98% on 3 lpm NC; Weight 93.44 kg lp1 (R); Height 6 ft. 0 in. (182.88 cm); Pain 7/10; 22:05 BP 131 / 51; Pulse 75; Resp 19; Pulse Ox 98% on 3 lpm NC; ca1 23:09 BP 143 / 96; Pulse 79; Resp 19; Pulse Ox 100% on 3 lpm NC; ca1 09/19 00:39 BP 132 / 63; Pulse 77; Resp 19; Pulse Ox 99% on 3 lpm NC; ca1 00:45 BP 137 / 51; Pulse 77; Resp 18 S; Pulse Ox 100% on R/A; rv 09/18 21:12 Body Mass Index 27.94 (93.44 kg, 182.88 cm) lp1 MDM: 09/18 21:17 Patient medically screened. rn 21:57 ED course: Consulted with Dr. Herrera, will admit for cellulitis and wound infection, rn will consult Dr. Espinal in AM.. 23:39 Differential diagnosis: cellulitis. Data reviewed: vital signs, nurses notes, lab test rn result(s), radiologic studies, plain films, and as a result, I will admit patient. Counseling: I had a detailed discussion with the patient and/or guardian regarding: the historical points, exam findings, and any diagnostic results supporting the discharge/admit diagnosis, lab results, radiology results, the need for further work-up and treatment in the hospital. Response to treatment: the patient's symptoms have mildly improved after treatment, and as a result, I will admit patient. Admission orders: after a detailed discussion of the patient's condition and case, the admit orders are written by me. 09/18 21:23 Order name: CBC with Diff; Complete Time: 23:30 rn 09/18 21:23 Order name: Basic Metabolic Panel; Complete Time: 23:30 rn 09/18 21:23 Order name: Blood Culture Adult (2) rn 09/18 21:23 Order name: Procalcitonin; Complete Time: 23:30 rn 09/18 21:57 Order name: Wound Culture rn 09/19 00:49 Order name: Urine Dipstick--Ancillary (enter results) ar5 09/18 21:23 Order name: IV Start; Complete Time: 21:42 rn 09/18 21:23 Order name: XRAY Foot LEFT 3 View rn 09/18 23:53 Order name: CONS Physician Consult EDMS Administered Medications: 22:30 Drug: vancoMYCIN 1 grams Route: IVPB; Infused Over: 2 hrs; Site: right forearm; ca1 09/19 00:35 Follow up: Response: No adverse reaction; IV Status: Completed infusion ca1 09/18 23:27 Drug: Demerol 25 mg Route: IVP; Site: right forearm; ca1 09/19 00:35 Follow up: Response: No adverse reaction; Pain is increased ca1 Disposition: 09/18/18 23:43 Hospitalization ordered by Cordell Herrera for Inpatient Admission. Preliminary diagnosis is Cellulitis of left lower limb. - Bed requested for Telemetry/MedSurg (Inpatient). - Status is Inpatient Admission. rv - Condition is Stable. - Problem is new. - Symptoms have improved. UTI on Admission? No Signatures: Dispatcher [employer] EDMS Kaylee Rojo RN RN mw Adam Gayle MD MD rn Pena, Laura RN RN lp1 Ruslan Mack RN RN rv Calvin, Little RN RN ca1 Corrections: (The following items were deleted from the chart) 09/18 23:55 23:43 Hospitalization Ordered by Cordell Herrera MD for Inpatient Admission. Preliminary diagnosis is Cellulitis of left lower limb. Bed requested for Telemetry/MedSurg (Inpatient). Status is Inpatient Admission. Condition is Stable. Problem is new. Symptoms have improved. UTI on Admission? No. rn 09/19 01:13 09/18 23:55 09/18/2018 23:43 Hospitalization Ordered by Cordell Herrera MD for Inpatient rv Admission. Preliminary diagnosis is Cellulitis of left lower limb. Bed requested for Telemetry/MedSurg (Inpatient). Status is Inpatient Admission. Condition is Stable. Problem is new. Symptoms have improved. UTI on Admission? No. mw
--- NOTE | 2018-09-18 23:44 | ER ---
Nurse's Notes [facility] Name: Jethro Burden Age: 73 yrs Sex: Male : 1945 Arrival Date: 09/18/2018 Time: 20:59 Bed 26 Private MD: Cordell Herrera R Diagnosis: Cellulitis of left lower limb Presentation: 09/18 21:08 Presenting complaint: Patient states: Redness and swelling to lower left leg for a lp1 couple weeks, not going away; Denies any fever at home. Transition of care: patient was not received from another setting of care. Onset of symptoms was September 18, 2018. Risk Assessment: Do you want to hurt yourself or someone else? Patient reports no desire to harm self or others. Initial Sepsis Screen: Does the patient meet any 2 criteria? No. Patient's initial sepsis screen is negative. Does the patient have a suspected source of infection? No. Patient's initial sepsis screen is negative. Care prior to arrival: None. 21:08 Method Of Arrival: Wheelchair lp1 21:08 Acuity: TAN 3 lp1 Historical: - Allergies: 21:11 NKDA; lp1 - Home Meds: 21:11 albuterol sulfate 2.5 mg /3 mL (0.083 %) Inhl nebu 3 mL Q4H prn [Active]; apixaban 5 mg lp1 Oral 1 tab 2 times per day [Active]; aspirin 81 mg Oral TbEC 1 tab once daily [Active]; atorvastatin 80 mg Oral tab 0.5 tab once daily [Active]; budesonide 3 mg Oral CECX 3 caps once daily [Active]; budesonide-formoterol inhalation 2 puffs 2 times per day [Active]; docusate sodium 100 mg Oral cap 1 cap 2 times per day [Active]; ferrous gluconate 324 mg (36 mg iron) Oral tab twice a day [Active]; finasteride 5 mg Oral tab 1 tab once daily [Active]; furosemide 40 mg Oral tab 3 tabs in am and 2 tabs in pm [Active]; gabapentin 100 mg Oral cap 1 caps 3 times per day [Active]; insulin aspart subcutaneous 35 unit three times a day [Active]; insulin detemir subcutaneous 70 units in am and 45 units in pm [Active]; ipratropium bromide 0.02 % inhalation soln 2.5 mL every 6 hours [Active]; losartan 100 mg Oral tab 1 tab once daily [Active]; magnesium oxide 420 mg Oral tab daily [Active]; metoprolol tartrate 50 mg Oral tab 1 tab once daily [Active]; pantoprazole 40 mg Oral TbEC 1 tab once daily [Active]; potassium chloride 10 mEq Oral cpER 2 caps once daily [Active]; sotalol 120 mg Oral tab 1 tab 2 times per day [Active]; - PMHx: 21:11 Atrial Fib; CHF; COPD; Crohn's; Depression; Diabetes - IDDM; Hyperlipidemia; lp1 Hypertension; prostate problems; - Immunization history:: Adult Immunizations up to date. - Social history:: Smoking status: Patient/guardian denies using tobacco, the patient reports quitting approximately 15 years ago. - Ebola Screening: : No symptoms or risks identified at this time. - Family history:: not pertinent. - Hospitalizations: : No recent hospitalization is reported. Screenin:20 Abuse screen: Denies threats or abuse. Denies injuries from another. Nutritional ca1 screening: No deficits noted. Tuberculosis screening: No symptoms or risk factors identified. Fall Risk IV access (20 points). Ambulatory Aid- Crutches/Cane/Walker (15 pts). Assessment: 21:20 General: Appears in no apparent distress. Behavior is calm, cooperative, appropriate ca1 for age. Pain: Complains of pain in left foot Pain currently is 8 out of 10 on a pain scale. Neuro: Level of Consciousness is awake, alert, obeys commands, Oriented to person, place, time, situation. Cardiovascular: Heart tones S1 S2 present Capillary refill < 3 seconds Patient's skin is warm and dry. Respiratory: Airway is patent Respiratory effort is even, unlabored, Respiratory pattern is regular, symmetrical, Breath sounds are clear bilaterally. GI: Abdomen is flat, non-distended, Bowel sounds present X 4 quads. Abd is soft and non tender X 4 quads. : No signs and/or symptoms were reported regarding the genitourinary system. EENT: No signs and/or symptoms were reported regarding the EENT system. Derm: Skin is fragile, is thin, with poor turgor Skin is dry, Skin temperature is warm Wound noted left first toe and left second toe. 23:09 Reassessment: Patient appears in no apparent distress at this time. Patient and/or ca1 family updated on plan of care and expected duration. Pain level reassessed. Patient is alert, oriented x 3, equal unlabored respirations, skin warm/dry/pink. 23:58 Musculoskeletal: Amputation of R Below knee. Range of motion: Swelling present in left ca1 foot. Vital Signs: 21:12 BP 145 / 44; Pulse 70; Resp 18; Temp 98.1(O); Pulse Ox 98% on 3 lpm NC; Weight 93.44 kg lp1 (R); Height 6 ft. 0 in. (182.88 cm); Pain 7/10; 22:05 BP 131 / 51; Pulse 75; Resp 19; Pulse Ox 98% on 3 lpm NC; ca1 23:09 BP 143 / 96; Pulse 79; Resp 19; Pulse Ox 100% on 3 lpm NC; ca1 09/19 00:39 BP 132 / 63; Pulse 77; Resp 19; Pulse Ox 99% on 3 lpm NC; ca1 00:45 BP 137 / 51; Pulse 77; Resp 18 S; Pulse Ox 100% on R/A; rv 09/18 21:12 Body Mass Index 27.94 (93.44 kg, 182.88 cm) lp1 ED Course: 09/18 20:59 Patient arrived in ED. es 20:59 Cordell Herrera MD is Private Physician. es 21:10 Triage completed. lp1 21:10 Arm band placed on right wrist. lp1 21:16 Adam Gayle MD is Attending Physician. rn 21:20 Patient has correct armband on for positive identification. Placed in gown. Bed in low ca1 position. Call light in reach. Side rails up X2. Pulse ox on. NIBP on. Warm blanket given. 21:30 Little Simpson, RYLEE is Primary Nurse. ca1 21:35 Inserted saline lock: 20 gauge in right forearm, using aseptic technique. Blood rv collected. 22:13 XRAY Foot LEFT 3 View In Process Unspecified. EDMS 23:42 Cordell Herrera MD is Hospitalizing Provider. rn 09/19 00:35 No provider procedures requiring assistance completed. Patient admitted, IV remains in ca1 place. Administered Medications: 09/18 22:30 Drug: vancoMYCIN 1 grams Route: IVPB; Infused Over: 2 hrs; Site: right forearm; ca1 09/19 00:35 Follow up: Response: No adverse reaction; IV Status: Completed infusion ca1 09/18 23:27 Drug: Demerol 25 mg Route: IVP; Site: right forearm; ca1 09/19 00:35 Follow up: Response: No adverse reaction; Pain is increased ca1 Outcome: 09/18 23:43 Decision to Hospitalize by Provider. rn 09/19 00:59 Admitted to Tele accompanied by tech, via stretcher, room 428, with chart, Report rv called to GÓMEZ MCKEE Condition: good Discharge instructions given to patient, Instructed on the need for admit, Demonstrated understanding of instructions. 01:13 Patient left the ED. rv Signatures: Dispatcher [employer] Marcia Cheema Roman, MD MD rn Pena, Laura RN RN lp1 Ruslan Mack RN RN rv Little Simpson RN RN ca1
[2018-09-19] MEDS ORDERED: ONDANSETRON 4 MG/2 ML VIAL IV PRN (01:34)
[2018-09-19] MEDS ORDERED: GLUCAGON 1 MG/VIAL IM PRN (03:59)
[2018-09-19] MEDS ORDERED: D50W 25 GM/50 ML SYRINGE IV PRN (03:59)
[2018-09-19] MEDS: ALBUTEROL 2.5 MG/3 ML NEB SOL NEB SCH ×4 (04:21→20:00)
[2018-09-19] MEDS: HYDROCODONE/APAP 5/325 MG TAB PO PRN ×2 (04:24→14:44)
[2018-09-19] MEDS: IPRATROPIUM BROM 0.5MG/2.5ML NEB SCH ×4 (05:00→20:00)
[2018-09-19 05:02] LABS: Potassium 4.1 mmol/L (3.5-5.1)
[2018-09-19 05:08] LABS: Absolute Lymphocytes (CBC) 1.5 K/uL (0.7-4.9); Absolute Monocytes 1.1 K/uL (0.1-1.3); Absolute Neutrophil 10.1 K/uL (1.8-8.0); Basophils % 0.6 % (0-1.3); Eosinophils % 2.4 % (0-4.4); Hematocrit 28.6 % (39.6-49.0); Lymphocytes % 11.7 % (15.3-44.8); MPV 8.7 fL (7.6-11.3); RBC Red Blood Cell Count 3.22 M/uL (4.33-5.43)
[2018-09-19] MEDS: INSULIN -REGULAR HUMAN 50 UNIT/0.5 ML ML SQ SCH ×4 (07:54→20:45)
--- NOTE | 2018-09-19 08:48 | RAD REPORT ---
EXAM DESCRIPTION: RAD - Foot Left 3 View - 09/18/2018 10:16 pm CLINICAL HISTORY: Left Foot pain FINDINGS: No fracture or dislocation is seen. Most of the first digit is absent. Second phalanx is absent. No acute bony destructive lesion is seen.
[2018-09-19] MEDS ORDERED: IPRATROPIUM BROM 0.5MG/2.5ML NEB SCH (09:00)
[2018-09-19] MEDS ORDERED: ALBUTEROL 2.5 MG/3 ML NEB SOL NEB SCH (09:00)
[2018-09-19] MEDS ORDERED: VANCOMYCIN/NS 1 gm 1 GM/250 ML BAG IVPB SCH (09:00)
[2018-09-19] MEDS: HOME MED 1 EA UNK (Budesonide/Formoterol Fumarate [Symbicort 160-4.5 Mcg Inhaler] 2 PUFF) PO SCH ×2 (09:00→20:44)
[2018-09-19] MEDS: POTASSIUM CL SA 10 MEQ TAB PO SCH (09:13)
[2018-09-19] MEDS: FERROUS GLUCONATE 300 MG TAB PO SCH ×2 (09:13→20:43)
[2018-09-19] MEDS: FINASTERIDE 5 MG TAB PO SCH (09:13)
[2018-09-19] MEDS: GABAPENTIN 100 MG CAP PO SCH ×3 (09:13→20:43)
[2018-09-19] MEDS: SERTRALINE HCL 100 MG TAB PO SCH (09:14)
[2018-09-19] MEDS: APIXABAN 5 MG TABLET PO SCH ×2 (09:14→20:43)
[2018-09-19] MEDS: LOSARTAN POTASSIUM 50 MG TABLET PO SCH (09:14)
[2018-09-19] MEDS: MAGNESIUM OXIDE 400 MG TAB PO SCH (09:14)
[2018-09-19] MEDS: SOTALOL HCL 80 MG TAB PO SCH ×2 (09:14→20:42)
[2018-09-19] MEDS: DOCUSATE NA 100 MG CAP PO SCH ×2 (09:14→20:43)
[2018-09-19] MEDS: METOPROLOL XL 50 MG TAB PO SCH (09:15)
[2018-09-19] MEDS: FUROSEMIDE 40 MG TABLET PO SCH (09:15)
[2018-09-19] MEDS: BUDESONIDE, MICRONIZED 3 MG CAP PO SCH (09:16)
[2018-09-19] MEDS ORDERED: MUPIROCIN 2% OINT 22GM TUBE TOP PRN (10:13)
[2018-09-19] MEDS ORDERED: INSULIN GLARGINE 100 UNITS/ML SQ SCH (18:00)
[2018-09-19] MEDS ORDERED: FUROSEMIDE 40 MG TABLET PO SCH (18:00)
[2018-09-19] MEDS ORDERED: ATORVASTATIN 40 MG TAB PO SCH (21:00)
[2018-09-19] MEDS ORDERED: VANCOMYCIN 1.75 GM in NA CHLORIDE 0.9% 500 ML IVPB SCH (21:00)
[2018-09-19 21:22] VITALS: O2SAT 98
--- NOTE | 2018-09-20 05:14 | HP ---
Date of Admission: 09/18/2018 Chief Complaint: Pain, swelling, drainage, left leg. History Of Present Illness: A 73-year-old male who has peripheral vascular disease and recent toe am putation, was brought to the emergency room with overnight swelling, redness, pain of the left leg al elder with drainage of old surgical site. The patient had elevated white count. The patient is admitt ed. There is no history of injury. 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 He has history of right leg amputation for perip heral vascular disease with foot infection. He also has numerous cardiac problems that include chron ic atrial fibrillation, congestive heart failure, hyperlipidemia. He has COPD, depression. Family History: Diabetes present. Allergies: THE PATIENT HAS NO KNOWN ALLERGIES. Home Medicines: Please refer to the chart. Review of Systems: The patient denied any chest pain. Physical Examination: General: Revealed a 73-year-old male in moderate pain. Vital Signs: Afebrile. HEENT: Otherwise negative. Neck: Supple. JVD negative. Chest: Scattered wheezes. Heart: Irregularity noted. Abdomen: Soft. Extremities: Right leg amputation noted. Left leg has diffuse redness of the area below the knee up to the ankle. There is active drainage from the amputation of the toe site. Laboratory Data: White count 13.8, hemoglobin 9.1. Chem profile; BUN 42, creatinine 1.36, random bl ood sugar of 179. X-ray of the foot done in the emergency room showed evidence of surgery. No destructive changes in t he underlying bone. Assessment: 1.Cellulitis, left leg. 2.Infection, amputation site, left big toe. 3.Peripheral vascular disease. 4.Congestive heart failure. 5.Type 2 diabetes. 6.Chronic atrial fibrillation, on anticoagulation. 7.Hyperlipidemia. 8.Depression. Plan: The patient is started on vancomycin. The patient has been followed by Dr. Espinal. A consu lt has been requested. The patient is restarted on his insulin and other medications along with sliding scale. RRK/MODL Voice ID: [id number]
[2018-09-20 05:19] VITALS: BMI 30.2
[2018-09-20] MEDS ORDERED: PANTOPRAZOLE 40MG TABLET PO SCH (06:30)
[2018-09-20] MEDS: IPRATROPIUM BROM 0.5MG/2.5ML NEB SCH (07:55)
[2018-09-20] MEDS: ALBUTEROL 2.5 MG/3 ML NEB SOL NEB SCH (07:55)
[2018-09-20] MEDS ORDERED: INSULIN GLARGINE 100 UNITS/ML SQ SCH (08:00)
[2018-09-20] MEDS: INSULIN -REGULAR HUMAN 50 UNIT/0.5 ML ML SQ SCH (08:23)
[2018-09-20] MEDS: MAGNESIUM OXIDE 400 MG TAB PO SCH (08:24)
[2018-09-20] MEDS: FERROUS GLUCONATE 300 MG TAB PO SCH (08:24)
[2018-09-20] MEDS: DOCUSATE NA 100 MG CAP PO SCH (08:24)
[2018-09-20] MEDS: POTASSIUM CL SA 10 MEQ TAB PO SCH (08:25)
[2018-09-20] MEDS: SOTALOL HCL 80 MG TAB PO SCH (08:25)
[2018-09-20] MEDS: SERTRALINE HCL 100 MG TAB PO SCH (08:25)
[2018-09-20] MEDS: FINASTERIDE 5 MG TAB PO SCH (08:25)
[2018-09-20] MEDS: GABAPENTIN 100 MG CAP PO SCH (08:25)
[2018-09-20] MEDS: LOSARTAN POTASSIUM 50 MG TABLET PO SCH (08:25)
[2018-09-20] MEDS: METOPROLOL XL 50 MG TAB PO SCH (08:26)
[2018-09-20] MEDS: APIXABAN 5 MG TABLET PO SCH (08:26)
[2018-09-20] MEDS: FUROSEMIDE 40 MG TABLET PO SCH (08:28)
[2018-09-20] MEDS: BUDESONIDE, MICRONIZED 3 MG CAP PO SCH (08:28)
[2018-09-20 08:29] VITALS: BP 132/60
[2018-09-20] MEDS ORDERED: IPRATROPIUM BROM 0.5MG/2.5ML NEB SCH ×2 (09:00→14:00)
[2018-09-20] MEDS: HOME MED 1 EA UNK (Budesonide/Formoterol Fumarate [Symbicort 160-4.5 Mcg Inhaler] 2 PUFF) PO SCH (09:00)
[2018-09-20 09:06] VITALS: TEMP 98.3
[2018-09-20] MEDS ORDERED: ALBUTEROL 2.5 MG/3 ML NEB SOL NEB SCH (14:00)
== END 2018-09-20 11:25 | disposition home health service (06) ==
LOC: ER 20:55 → ERHOLD 23:59 → INTOOBSV 23:59 → 4TH 09-19 00:56
PROVIDERS: ADMIT Internal Medicine; ATTEND Internal Medicine
DX: L03.116 Cellulitis of left lower limb (principal); E11.9 Type 2 diabetes mellitus without complications; I73.9 Peripheral vascular disease, unspecified; I48.2 Chronic atrial fibrillation; E78.5 Hyperlipidemia, unspecified; J44.9 Chronic obstructive pulmonary disease, unspecified; F32.9 Major depressive disorder, single episode, unspecified; I50.9 Heart failure, unspecified; Z89.422 Acquired absence of other left toe(s); Z89.611 Acquired absence of right leg above knee
CPT/HCPCS: 36415; 80048; 82962; 84145; 85025; 87040; 87070; 87077; 87186; 87205; 96365; 96366; 96375; 99285; G0378; G0379; J2175

== ENCOUNTER 2018-09-20 14:37 | Emergency (ER) | payer OTHER ==
--- OUTSIDE RECORDS SUMMARY | 2018-09-20 14:43 | XMS REPORT | Clinical Summary ---
:1945 Author Organization [facility] Address [address] [place] [address] Care Team Providers Name Role Phone Asked, [...] Not on file Results Not on fileafter 09/19/2017 Insurance Payer Benefit Plan / Group Subscriber ID Type Phone Address [facility] x[facility] HMO Advance Directives Patient has advance care planning documents, and code status on file. For more information, please contact:Ari Hernandez[address] [place] [address] Code Status Date Activated Date Inactivated Comments Full Code 05/24/2016 9:28 PM 05/26/2016 4:41 PM Code Status decision reached by: Patient
[2018-09-20 15:26] LABS: Absolute Lymphocytes (CBC) 0.8 K/uL (0.7-4.9); Absolute Monocytes 1.1 K/uL (0.1-1.3); Basophils % 0.5 % (0-1.3); Eosinophils % 0.5 % (0-4.4); Lymphocytes % 5.2 % (15.3-44.8); MPV 8.2 fL (7.6-11.3); RBC Red Blood Cell Count 3.42 M/uL (4.33-5.43)
--- NOTE | 2018-09-20 15:36 | RAD REPORT ---
EXAM DESCRIPTION: CT - Head C Spine Cap W Con - 09/20/2018 3:20 pm CLINICAL HISTORY: Trip and fall, head, neck, chest and abdomen pain COMPARISON: CT head September 17, 2018, CT abdomen and pelvis November 2017, CT trauma gram September 2017 TECHNIQUE: Axial [address] head images were obtained. Axial [address] cervical spine images were obtaine d with sagittal and coronal reconstruction images reviewed. During dynamic enhancement of 100mL non-i onic contrast, axial 5 mm images of the chest, abdomen and pelvis were obtained. All CT scans are performed using dose optimization technique as appropriate and may include automated exposure control or mA/KV adjustment according to patient size. FINDINGS: No intracranial hemorrhage, mass or edema. No midline shift or abnormal fluid collection. Mastoid air cells and paranasal sinuses are clear of acute finding. No skull fracture. No changes from September 17. CT cervical spine imaging shows normal height. No alignment abnormalities seen. C3-4 disc space narro wing is present with endplate spurring. Advanced facet joint degenerative changes are present along w ith uncovertebral joint hypertrophy. Canal is borderline stenotic at C3-4. No paraspinal mass or carlos alyssa seen. Central canal detail is inherently limited. Concerns for traumatic disc herniation or trau matic cord injury can be further addressed with MR imaging. No fracture or acute bone finding identif iable. Dense carotid calcifications are present. Right-side thyroid nodularity has not changed from [address] chest shows no pneumothorax, pulmonary contusion or pleural fluid collection. Scattered fibrotic c hanges are present. No mediastinal hematoma and the aorta and pulmonary arteries are unremarkable. No chest will mass or abnormal axillary finding. No displaced rib fracture or other significant bony fi nding. Partially imaged right shoulder girdle shows no acute finding. Clavicle, scapula and proximal humerus are only partially imaged. CT abdomen and pelvis show no injury to solid abdominal viscera. Gallbladder and biliary tree are unr emarkable. No bowel injury or significant finding. No free air, free fluid or abnormal stranding. No urinary bladder abnormality. Degenerative changes of the pelvis and spine noted. Dense arterial tree calcifications are present. A ir in the urinary bladder is presumed to be from a catheterization procedure. IMPRESSION: No hemorrhage, edema or acute CT Head finding. No change from September 17. Prominent cervical spine degenerative change similar to comparison. No traumatic injury to the chest. Fibrotic lung changes are present. Right shoulder girdle is only pa rtially imaged on this examination. No significant CT Abdomen and Pelvis finding.
[2018-09-20 15:41] LABS: Potassium 4.4 mmol/L (3.5-5.1)
[2018-09-20 16:01] LABS: Anisocytosis 1+; Blood Morphology Comment NOTED (NOT SEEN); Platelet Estimate ADEQ; Platelets, Giant FEW; Polychromasia 1+; Urine White Blood Cell Casts OK
--- NOTE | 2018-09-20 16:30 | ER ---
Nurse's Notes [facility] Name: Jethro Burden Age: 73 yrs Sex: Male : 1945 Arrival Date: 09/20/2018 Time: 14:35 Bed 15 Private MD: Diagnosis: Mechanical Fall Presentation: 09/20 14:37 Presenting complaint: Patient states: I did not clip my prosthetic on correctly and ls4 when I took a step I went down. Pt complains of knee pain and right shoulder pain. Transition of care: patient was not received from another setting of care. Onset of symptoms was September 20, 2018. Risk Assessment: Do you want to hurt yourself or someone else? Patient reports no desire to harm self or others. Initial Sepsis Screen: Does the patient meet any 2 criteria? No. Patient's initial sepsis screen is negative. Does the patient have a suspected source of infection? No. Patient's initial sepsis screen is negative. Care prior to arrival: None. 14:37 Method Of Arrival: EMS: [facility] 4 14:37 Acuity: TAN 3 ls4 Triage Assessment: 14:44 General: Appears ill, unkempt, Behavior is. ls4 Historical: - Allergies: 14:44 NKDA; ls4 - Home Meds: 15:41 albuterol sulfate 2.5 mg /3 mL (0.083 %) Inhl nebu 3 mL Q4H prn [Active]; apixaban 5 mg ls4 Oral 1 tab 2 times per day [Active]; aspirin 81 mg Oral TbEC 1 tab once daily [Active]; atorvastatin 80 mg Oral tab 0.5 tab once daily [Active]; budesonide 3 mg Oral CECX 3 caps once daily [Active]; budesonide-formoterol inhalation 2 puffs 2 times per day [Active]; docusate sodium 100 mg Oral cap 1 cap 2 times per day [Active]; ferrous gluconate 324 mg (36 mg iron) Oral tab twice a day [Active]; finasteride 5 mg Oral tab 1 tab once daily [Active]; furosemide 40 mg Oral tab 3 tabs in am and 2 tabs in pm [Active]; gabapentin 100 mg Oral cap 1 caps 3 times per day [Active]; insulin aspart subcutaneous 35 unit three times a day [Active]; insulin detemir subcutaneous 70 units in am and 45 units in pm [Active]; ipratropium bromide 0.02 % inhalation soln 2.5 mL every 6 hours [Active]; losartan 100 mg Oral tab 1 tab once daily [Active]; magnesium oxide 420 mg Oral tab daily [Active]; metoprolol tartrate 50 mg Oral tab 1 tab once daily [Active]; pantoprazole 40 mg Oral TbEC 1 tab once daily [Active]; potassium chloride 10 mEq Oral cpER 2 caps once daily [Active]; sotalol 120 mg Oral tab 1 tab 2 times per day [Active]; - PMHx: 14:44 Atrial Fib; CHF; COPD; Crohn's; Depression; Diabetes - IDDM; Hyperlipidemia; ls4 Hypertension; prostate problems; - Immunization history:: Adult Immunizations unknown. - Social history:: Smoking status: unknown. - Ebola Screening: : Patient negative for fever greater than or equal to 101.5 degrees Fahrenheit, and additional compatible Ebola Virus Disease symptoms Patient denies exposure to infectious person Patient denies travel to an Ebola-affected area in the 21 days before illness onset No symptoms or risks identified at this time. Screenin:56 Abuse screen: Denies threats or abuse. Denies injuries from another. Nutritional ls4 screening: No deficits noted. Tuberculosis screening: No symptoms or risk factors identified. Fall Risk Fall in past 12 months (25 points). Secondary diagnosis (15 points) IV access (20 points). Ambulatory Aid- Crutches/Cane/Walker (15 pts). Gait- Impaired (20 pts.). Mental Status- Overestimates/Forgets Limitations (15 pts.). Total Strong Fall Scale indicates High Risk Score (45 or more points). Assessment: 14:59 General: Appears ill, obese. Pain: Complains of pain in right knee and left knee. ls4 Neuro: Level of Consciousness is awake, obeys commands, Oriented to person, place, time, situation. Respiratory: Airway is patent Respiratory effort is even, unlabored, Respiratory pattern is regular, Breath sounds are diminished bilaterally. Derm: pt with red areas and bruises to arms, legs and abdomen. Pt also has cellulitis to his left lower leg. Musculoskeletal: Amputation of BKA Circulation, motion, and sensation intact. Capillary refill < 3 seconds. Vital Signs: 14:54 BP 148 / 58; Pulse 77; Resp 16; Temp 98.0; Pulse Ox 98% on R/A; Pain 5/10; ls4 15:37 BP 138 / 64; Pulse 85; Resp 20; Pulse Ox 98% on 2 lpm NC; ls4 15:46 BP 160 / 59; Pulse 87; Resp 19; Temp 98.4(O); Pulse Ox 97% on 2 lpm NC; Pain 4/10; ls4 17:01 BP 138 / 74; Pulse 76; Resp 18; Temp 98.4(O); Pulse Ox 99% ; Pain 3/10; ls4 ED Course: 14:35 Patient arrived in ED. hj 14:36 Deepthi Reyez, RYLEE is Primary Nurse. ls4 14:38 Triage completed. ls4 14:47 EKG done, by support technician. reviewed by Lionel Tilley MD. sm3 14:48 Lionel Tilley MD is Attending Physician. ps1 14:50 Maintain EMS IV. Dressing intact. Good blood return noted. Site clean \T\ dry. Gauge \T\ ls 4 site: 20 g right forearm . 14:54 Arm band placed on. EKG completed in triage. Results shown to MD. ls4 14:56 No provider procedures requiring assistance completed. ls4 14:56 Patient has correct armband on for positive identification. Fall risk band placed. ls4 Placed in gown. Bed in low position. Side rails up X 1. 15:[address] via stretcher. sj 15:20 CT completed. Patient tolerated procedure well. Patient moved back from CT. nj 15:24 CT Traumagram (Head C Spine CAP W Con) In Process Unspecified. EDMS 16:28 Cordell Herrera MD is Referral Physician. ps1 17:32 IV discontinued, intact, bleeding controlled, No redness/swelling at site. Pressure ls4 dressing applied. Administered Medications: No medications were administered Outcome: 16:29 Discharge ordered by MD. ps1 17:32 Discharged to home via wheelchair, with family. ls4 17:32 Condition: stable 17:32 Discharge instructions given to patient, significant other, Instructed on discharge instructions, follow up and referral plans. medication usage, safety practices, Demonstrated understanding of instructions, follow-up care, medications. 17:36 Patient left the ED. ls4 Signatures: Dispatcher [employer] EDMS Cohen, Kassandra sj MarcusJose RN RN hj Jordan, Nathan nj Singer, Phillip, MD MD ps1 Montes, Shakira 3 Deepthi Reyez RN RN ls4 Corrections: (The following items were deleted from the chart) 15:05 15:04 Radiology exam delayed due to lab results not completed at this time. sj (BUN/Creatinine) sj
--- NOTE | 2018-09-20 16:31 | EDPHYS ---
Physician Documentation [facility] Name: Jethro Burden Age: 73 yrs Sex: Male : 1945 Arrival Date: 09/20/2018 Time: 14:35 Bed 15 Private MD: ED Physician Lionel Tilley HPI: 09/20 15:16 This 73 yrs old Male presents to ER via EMS with complaints of AMS, fall, on ps1 eliquis. 15:16 patient was putting his prosthetic leg on and slipped and fell. He is on Eliquis. Hit ps1 his head. He was somnolent in the room and minimally answering questions. Patient not providing much history. Historical: - Allergies: 14:44 NKDA; ls4 - Home Meds: 15:41 albuterol sulfate 2.5 mg /3 mL (0.083 %) Inhl nebu 3 mL Q4H prn [Active]; apixaban 5 mg ls4 Oral 1 tab 2 times per day [Active]; aspirin 81 mg Oral TbEC 1 tab once daily [Active]; atorvastatin 80 mg Oral tab 0.5 tab once daily [Active]; budesonide 3 mg Oral CECX 3 caps once daily [Active]; budesonide-formoterol inhalation 2 puffs 2 times per day [Active]; docusate sodium 100 mg Oral cap 1 cap 2 times per day [Active]; ferrous gluconate 324 mg (36 mg iron) Oral tab twice a day [Active]; finasteride 5 mg Oral tab 1 tab once daily [Active]; furosemide 40 mg Oral tab 3 tabs in am and 2 tabs in pm [Active]; gabapentin 100 mg Oral cap 1 caps 3 times per day [Active]; insulin aspart subcutaneous 35 unit three times a day [Active]; insulin detemir subcutaneous 70 units in am and 45 units in pm [Active]; ipratropium bromide 0.02 % inhalation soln 2.5 mL every 6 hours [Active]; losartan 100 mg Oral tab 1 tab once daily [Active]; magnesium oxide 420 mg Oral tab daily [Active]; metoprolol tartrate 50 mg Oral tab 1 tab once daily [Active]; pantoprazole 40 mg Oral TbEC 1 tab once daily [Active]; potassium chloride 10 mEq Oral cpER 2 caps once daily [Active]; sotalol 120 mg Oral tab 1 tab 2 times per day [Active]; - PMHx: 14:44 Atrial Fib; CHF; COPD; Crohn's; Depression; Diabetes - IDDM; Hyperlipidemia; ls4 Hypertension; prostate problems; - Immunization history:: Adult Immunizations unknown. - Social history:: Smoking status: unknown. - Ebola Screening: : Patient negative for fever greater than or equal to 101.5 degrees Fahrenheit, and additional compatible Ebola Virus Disease symptoms Patient denies exposure to infectious person Patient denies travel to an Ebola-affected area in the 21 days before illness onset No symptoms or risks identified at this time. ROS: 15:16 Unable to obtain ROS due to patient being uncooperative. ps1 Exam: 15:16 Eyes: Pupils equal round and reactive to light, extra-ocular motions intact. Lids and ps1 lashes normal. Conjunctiva and sclera are non-icteric and not injected. Chest/axilla: Normal chest wall appearance and motion. Nontender with no deformity. No lesions are appreciated. Cardiovascular: Regular rate and rhythm. No gallops, murmurs, or rubs. Normal PMI, no JVD. No pulse deficits. Respiratory: Lungs have equal breath sounds bilaterally, clear to auscultation and percussion. No rales, rhonchi or wheezes noted. No increased work of breathing, no retractions or nasal flaring. Abdomen/GI: Soft, non-tender, with normal bowel sounds. No distension or tympany. No guarding or rebound. No evidence of tenderness throughout. 15:16 Constitutional: The patient appears alert to stimulation, answers questions, somnolent and goes back to sleep during examination. 15:16 Musculoskeletal/extremity: Extremities: grossly normal except: noted in the right leg: BKA. Vital Signs: 14:54 BP 148 / 58; Pulse 77; Resp 16; Temp 98.0; Pulse Ox 98% on R/A; Pain 5/10; ls4 15:37 BP 138 / 64; Pulse 85; Resp 20; Pulse Ox 98% on 2 lpm NC; ls4 15:46 BP 160 / 59; Pulse 87; Resp 19; Temp 98.4(O); Pulse Ox 97% on 2 lpm NC; Pain 4/10; ls4 17:01 BP 138 / 74; Pulse 76; Resp 18; Temp 98.4(O); Pulse Ox 99% ; Pain 3/10; ls4 MDM: 15:38 Patient medically screened. [facility] 09/20 15:01 Order name: Basic Metabolic Panel; Complete Time: 15:44 [facility] 09/20 15:01 Order name: CBC with Diff; Complete Time: 16:09 [facility] 09/20 15:01 Order name: CT Traumagram (Head C Spine CAP W Con); Complete Time: 16:09 [facility] 09/20 15:01 Order name: Creatinine for Radiology; Complete Time: 15:44 [facility] 09/20 15:01 Order name: Type And Screen; Complete Time: 17:00 [facility] 09/20 15:29 Order name: CBC Smear Scan; Complete Time: 16:09 [facility]IN 09/20 14:42 Order name: EKG; Complete Time: 14:45 ls4 09/20 14:42 Order name: EKG - Nurse/Tech; Complete Time: 14:54 4 09/20 15:01 Order name: Labs collected and sent; Complete Time: 16:32 ps1 Administered Medications: No medications were administered Disposition: 09/20/18 16:29 Discharged to Home. Impression: Mechanical Fall. - Condition is Fair. - Discharge Instructions: Fall Prevention in the Home. - Medication Reconciliation Form, Thank You Letter, Antibiotic Education, Prescription Opioid Use form. - Follow up: Cordell Herrera MD; When: As needed; Reason: Recheck today's complaints, Continuance of care, Re-evaluation by your physician. Follow up: Emergency Department; When: As needed; Reason: Worsening of condition. - Problem is new. - Symptoms have improved. Signatures: Dispatcher [employer] EDIN Lionel Tilley MD MD ps1 Deepthi Reyez RN RN ls4 Corrections: (The following items were deleted from the chart) 15:19 15:16 This 73 yrs old Male presents to ER via EMS with complaints of AMS, ps1 fall, on eliquis. ps1 17:34 16:29 09/20/2018 16:29 Discharged to Home. Impression: Mechanical Fall. Condition is ls4 Fair. Forms are Medication Reconciliation Form, Thank You Letter, Antibiotic Education, Prescription Opioid Use. Follow up: Cordell Herrera; When: As needed; Reason: Recheck today's complaints, Continuance of care, Re-evaluation by your physician. Follow up: Emergency Department; When: As needed; Reason: Worsening of condition. Problem is new. Symptoms have improved. ps1 17:36 17:34 09/20/2018 16:29 Discharged to Home. Impression: Mechanical Fall. Condition is ls4 Fair. Discharge Instructions: Fall Prevention in the Home. Forms are Medication Reconciliation Form, Thank You Letter, Antibiotic Education, Prescription Opioid Use. Follow up: Cordell Herrera; When: As needed; Reason: Recheck today's complaints, Continuance of care, Re-evaluation by your physician. Follow up: Emergency Department; When: As needed; Reason: Worsening of condition. Problem is new. Symptoms have improved. ls4
[2018-09-20 17:54] VITALS: TEMP 98.4
[2018-09-20 17:55] VITALS: BP 138/74; O2SAT 99
--- NOTE | 2018-09-20 21:37 | EKG ---
Test Date: 2018-09-20 Test Time: 14:43:49 Building Materials Sales Attendant: SELINA MEASUREMENT RESULTS: Intervals: Rate: 77 WI: 170 QRSD: 88 QT: 422 QTc: 477 [place]: P: 42 WI: 170 QRS: 73 T: 53 INTERPRETIVE STATEMENTS: Normal sinus rhythm Normal ECG Compared to ECG 09/17/2018 06:21:35 Prolonged QT interval no longer present Electronically Signed On 09-20-18 21:35:40 EMU FARMER by Bertram Welch
== END 2018-09-20 17:36 | disposition home or self-care (01) ==
LOC: ER 14:37
DX: R41.82 Altered mental status, unspecified (principal); W18.39XA Other fall on same level, initial encounter; Y93.89 Activity, other specified; Y92.009 Unspecified place in unspecified non-institutional (private) residence as the place of occurrence of the external cause; Z79.01 Long term (current) use of anticoagulants; Z79.82 Long term (current) use of aspirin; Z79.4 Long term (current) use of insulin; I10 Essential (primary) hypertension; E11.9 Type 2 diabetes mellitus without complications; E78.5 Hyperlipidemia, unspecified; I48.91 Unspecified atrial fibrillation; I50.9 Heart failure, unspecified; J44.9 Chronic obstructive pulmonary disease, unspecified; F32.9 Major depressive disorder, single episode, unspecified
CPT/HCPCS: 36415; 70450; 71260; 72125; 74177; 80048; 85025; 86850; 86900; 86901; 93005; 99284; Q9967

== ENCOUNTER 2018-09-22 15:40 | Emergency (ER) | payer OTHER ==
--- OUTSIDE RECORDS SUMMARY | 2018-09-22 15:42 | XMS REPORT | Clinical Summary ---
:1945 Author Organization [facility] [employer] Address [address] [place] [address] Care Team Providers Name Role Phone Asked, [...] Not on file Results Not on fileafter 09/21/2017 Insurance Payer Benefit Plan / Group Subscriber ID Type Phone Address [facility] xxxxxxxxx HMO Advance Directives Patient has advance care planning documents, and code status on file. For more information, please contact:Ari Hernandez[address] [place] [address] Code Status Date Activated Date Inactivated Comments Full Code 05/24/2016 9:28 PM 05/26/2016 4:41 PM Code Status decision reached by: Patient
--- NOTE | 2018-09-22 16:49 | RAD REPORT ---
EXAM DESCRIPTION: RAD - Chest Single View - 09/22/2018 4:44 pm CLINICAL HISTORY: ABDOMINAL DISTENTION Chest pain. COMPARISON: Chest Single View dated 09/17/2018; Chest Single View dated 09/08/2018; Chest Single View d ated 08/26/2018; Chest Single View dated 07/27/2018; Head C Spine Cap W Con dated 09/20/2018 FINDINGS: Portable technique limits examination quality. The lungs are grossly clear. The heart is normal in size. No displaced fractures. IMPRESSION: No acute intrathoracic process suspected.
[2018-09-22] MEDS ORDERED: NA CHLORIDE 0.9% 1,000 ML ONE (17:05)
[2018-09-22 17:10] LABS: Absolute Lymphocytes (CBC) 0.7 K/uL (0.7-4.9); Absolute Neutrophil 8.9 K/uL (1.8-8.0); Basophils % 0.3 % (0-1.3); Eosinophils % 0.4 % (0-4.4); Hematocrit 27.2 % (39.6-49.0); Lymphocytes % 6.4 % (15.3-44.8); MPV 8.2 fL (7.6-11.3); Monocytes % 9.2 % (3.3-12.3); RBC Red Blood Cell Count 3.06 M/uL (4.33-5.43)
[2018-09-22 17:14] LABS: Protime INR 1.49
[2018-09-22 17:30] LABS: ALT/SGPT 29 U/L (12-78); AST/SGOT 27 U/L (15-37); Albumin 2.4 g/dL (3.4-5.0); Alkaline Phosphatase 113 U/L (45-117); BUN Blood Urea Nitrogen 43 mg/dL (7-18); Bicarbonate 33 mmol/L (21-32); Bilirubin Direct 0.1 mg/dL (0-0.2); Bilirubin Total 0.4 mg/dL (0.2-1.0); Glucose Level 244 mg/dL (74-106); Lipase 119 U/L (73-393); Magnesium 2.3 mg/dL (1.8-2.4); NT PRO-BNP 901 pg/mL (<125); Potassium 4.4 mmol/L (3.5-5.1); Protein, Total 7.7 g/dL (6.4-8.2); Sodium Level 131 mmol/L (136-145); Troponin (Emerg Dept Use Only) < 0.02 ng/mL (0.0-0.045)
[2018-09-22] MEDS ORDERED: LEVALBUTEROL 1.25 MG/3 ML NEB ONE (18:22)
[2018-09-22] MEDS ORDERED: IPRATROPIUM BROM 0.5MG/2.5ML ONE (18:22)
[2018-09-22] MEDS ORDERED: CEFTRIAXONE/SWI 1gm 1 GM/10 ML SYR ONE (18:23)
--- NOTE | 2018-09-22 18:29 | EKG ---
Test Date: 2018-09-22 Test Time: 17:09:27 Fpga Engineer: ROGER MEASUREMENT RESULTS: Intervals: Rate: 73 GA: 162 QRSD: 92 QT: 436 QTc: 480 [place]: P: -72 GA: 162 QRS: 69 T: 75 INTERPRETIVE STATEMENTS: Sinus rhythm Possible Septal infarct, age undetermined Abnormal ECG Compared to ECG 09/20/2018 14:43:49 Possible Myocardial infarct finding now present Electronically Signed On 09-22-18 18:29:23 MORALE OFFICER by Bertram Welch
--- NOTE | 2018-09-22 19:12 | RAD REPORT ---
EXAM DESCRIPTION: CT - Stone Protocol - 09/22/2018 6:35 pm CLINICAL HISTORY: Flank pain. Flank pain;Hematuria COMPARISON: Abdomen Pelvis Wo Contrast dated 12/03/2017; Head C Spine Cap W Con dated 09/20/2018 TECHNIQUE: Axial images were obtained without oral or IV contrast. Lack of contrast limits solid org an and vascular assessment. The [id number] spans the entirety of the system partially obscuring uppermost abdomen and lung bases. Coronal reformatted images were obtained and reviewed. All CT scans are performed using dose optimization technique as appropriate and may include automated exposure control or mA/KV adjustment according to patient size. FINDINGS: The lower lung wagner are clear. Imaged portions of the liver and spleen show no suspicious findings on non-contrast imaging. The panc reas and adrenal glands are normal. No pathologic lymphadenopathy in the abdomen or pelvis. There is a 3 mm stone in the mid-pole calyx of the left kidney without hydronephrosis seen. There is a punctate calculus mid pole right kidney without hydronephrosis. Tiny air bubbles seen in the urinar y bladder anteriorly. No bowel obstruction, free air, free fluid or abscess. The appendix appears absent.Aortic atheroscler osis is present. Prominent degenerative change the lumbosacral junction is noted with anterolisthesis, chronic. IMPRESSION: Punctate bilateral nephrolithiasis without hydronephrosis. Tiny air bubble urinary bladder could indicate cystitis.
--- NOTE | 2018-09-22 19:16 | EDPHYS ---
Physician Documentation [facility] Name: Jethro Burden Age: 73 yrs Sex: Male : 1945 Arrival Date: 09/22/2018 Time: 15:49 Bed 7 Private MD: ED Physician Serge Guallpa HPI: 09/22 18:07 This 73 yrs old Male presents to ER via EMS with complaints of Abdominal Pain.colin 18:07 The patient has shortness of breath at rest. Onset: The symptoms/episode began/occurred colin 2 day(s) ago. Duration: The symptoms are continuous, but are steadily getting better. The patient's shortness of breath has no apparent modifying factors. The patient presents with abdominal pain right lower quadrant, in the left lower quadrant. Onset: The symptoms/episode began/occurred 1 day(s) ago. The patient complains of pain in the left low back, left mid back, right mid back and right low back. The pain does not radiate. Onset: The symptoms/episode began/occurred just prior to arrival. Modifying factors: The symptoms are alleviated by nothing. the symptoms are aggravated by nothing. Historical: - Allergies: 15:58 NKDA; aj1 - Home Meds: 15:58 albuterol sulfate 2.5 mg /3 mL (0.083 %) Inhl nebu 3 mL Q4H prn [Active]; apixaban 5 mg aj1 Oral 1 tab 2 times per day [Active]; aspirin 81 mg Oral TbEC 1 tab once daily [Active]; atorvastatin 80 mg Oral tab 0.5 tab once daily [Active]; budesonide 3 mg Oral CECX 3 caps once daily [Active]; budesonide-formoterol inhalation 2 puffs 2 times per day [Active]; docusate sodium 100 mg Oral cap 1 cap 2 times per day [Active]; ferrous gluconate 324 mg (36 mg iron) Oral tab twice a day [Active]; finasteride 5 mg Oral tab 1 tab once daily [Active]; furosemide 40 mg Oral tab 3 tabs in am and 2 tabs in pm [Active]; gabapentin 100 mg Oral cap 1 caps 3 times per day [Active]; insulin aspart subcutaneous 35 unit three times a day [Active]; insulin detemir subcutaneous 70 units in am and 45 units in pm [Active]; ipratropium bromide 0.02 % inhalation soln 2.5 mL every 6 hours [Active]; losartan 100 mg Oral tab 1 tab once daily [Active]; magnesium oxide 420 mg Oral tab daily [Active]; metoprolol tartrate 50 mg Oral tab 1 tab once daily [Active]; pantoprazole 40 mg Oral TbEC 1 tab once daily [Active]; potassium chloride 10 mEq Oral cpER 2 caps once daily [Active]; sotalol 120 mg Oral tab 1 tab 2 times per day [Active]; - PMHx: 15:58 Atrial Fib; CHF; COPD; Crohn's; Depression; Diabetes - IDDM; Hyperlipidemia; aj1 Hypertension; prostate problems; - Immunization history:: Flu vaccine is up to date. - Social history:: Smoking status: Patient/guardian denies using tobacco. - Ebola Screening: : Patient denies travel to an Ebola-affected area in the 21 days before illness onset. - Family history:: not pertinent. ROS: 18:07 Constitutional: Negative for fever, chills, and weight loss, Eyes: Negative for injury, colin pain, redness, and discharge, ENT: Negative for injury, pain, and discharge, Neck: Negative for injury, pain, and swelling, Cardiovascular: Negative for chest pain, palpitations, and edema, Respiratory: Negative for shortness of breath, cough, wheezing, and pleuritic chest pain, Back: Negative for injury and pain, : Negative for injury, bleeding, discharge, and swelling, MS/Extremity: Negative for injury and deformity, Skin: Negative for injury, rash, and discoloration, Neuro: Negative for headache, weakness, numbness, tingling, and seizure. 18:07 Abdomen/GI: Positive for abdominal pain, of the right lower quadrant and left lower quadrant. Exam: 18:07 Constitutional: This is a well developed, well nourished patient who is awake, alert, colin and in no acute distress. Head/Face: Normocephalic, atraumatic. Eyes: Pupils equal round and reactive to light, extra-ocular motions intact. Lids and lashes normal. Conjunctiva and sclera are non-icteric and not injected. Cornea within normal limits. Periorbital areas with no swelling, redness, or edema. ENT: Nares patent. No nasal discharge, no septal abnormalities noted. Tympanic membranes are normal and external auditory canals are clear. Oropharynx with no redness, swelling, or masses, exudates, or evidence of obstruction, uvula midline. Mucous membranes moist. Neck: Trachea midline, no thyromegaly or masses palpated, and no cervical lymphadenopathy. Supple, full range of motion without nuchal rigidity, or vertebral point tenderness. No Meningismus. Chest/axilla: Normal chest wall appearance and motion. Nontender with no deformity. No lesions are appreciated. Cardiovascular: Regular rate and rhythm with a normal S1 and S2. No gallops, murmurs, or rubs. Normal PMI, no JVD. No pulse deficits. Abdomen/GI: Soft, non-tender, with normal bowel sounds. No distension or tympany. No guarding or rebound. No evidence of tenderness throughout. Back: No spinal tenderness. No costovertebral tenderness. Full range of motion. Male : Normal genitalia with no discharge or lesions. Skin: Warm, dry with normal turgor. Normal color with no rashes, no lesions, and no evidence of cellulitis. 18:07 Respiratory: the patient does not display signs of respiratory distress, Respirations: normal, Breath sounds: decreased breath sounds, that are mild, rhonchi, that are mild. Vital Signs: 15:58 BP 166 / 67; Pulse 74; Resp 24; Temp 98.6(TE); Pulse Ox 100% on 3 lpm NC; Pain 6/10; aj1 16:21 BP 148 / 63; Pulse 76; Resp 22; Pulse Ox 100% on 3 lpm NC; aj1 17:24 BP 140 / 53; Pulse 74; Resp 18; Temp 98.1; Pulse Ox 96% on R/A; Pain 6/10; ch 18:43 BP 151 / 64; Pulse 64; Resp 22; Pulse Ox 100% on Nebulizer Mask; aj1 19:23 BP 148 / 68; Pulse 72; Resp 16; Pulse Ox 96% on 3 lpm NC; aj1 MDM: 16:04 Patient medically screened. [facility] 18:10 Data reviewed: vital signs, nurses notes, lab test result(s), EKG, radiologic studies, [facility] CT scan, plain films. 09/22 16:05 Order name: Basic Metabolic Panel; Complete Time: 17:56 [facility] 09/22 16:05 Order name: CBC with Diff; Complete Time: 17:56 [facility] 09/22 16:05 Order name: LFT's; Complete Time: 17:56 [facility] 09/22 16:05 Order name: Magnesium; Complete Time: 17:56 [facility] 09/22 16:05 Order name: NT PRO-BNP; Complete Time: 17:56 [facility] 09/22 16:05 Order name: PT-INR; Complete Time: 17:56 [facility] 09/22 16:05 Order name: Troponin (emerg Dept Use Only); Complete Time: 17:56 [facility] 09/22 16:05 Order name: XRAY Chest (1 view); Complete Time: 17:56 [facility] 09/22 16:05 Order name: Lipase; Complete Time: 17:56 [facility] 09/22 16:06 Order name: Urine Culture [facility] 09/22 18:03 Order name: Urine Dipstick--Ancillary (enter results) 09/22 18:03 Order name: CT Stone Protocol; Complete Time: 19:14 [facility] 09/22 16:05 Order name: EKG; Complete Time: 16:06 [facility] 09/22 16:05 Order name: Cardiac monitoring; Complete Time: 16:49 [facility] 09/22 16:05 Order name: EKG - Nurse/Tech; Complete Time: 17:12 [facility] 09/22 16:05 Order name: IV Saline Lock; Complete Time: 16:49 [facility] 09/22 16:05 Order name: Labs collected and sent; Complete Time: 16:49 [facility] 09/22 16:05 Order name: O2 Per Protocol; Complete Time: 16:09 [facility] 09/22 16:05 Order name: O2 Sat Monitoring; Complete Time: 16:09 [facility] 09/22 16:06 Order name: Urine Dipstick-Ancillary (obtain specimen); Complete Time: 18:02 [facility] Administered Medications: 17:05 Drug: NS 0.9% 1000 ml Route: IV; Rate: 125 ml/hr; Site: right upper arm; ch 19:55 Follow up: IV Status: Completed infusion; IV Intake: 375ml aj1 18:17 Drug: Xopenex 1.25 mg Route: Inhalation; aj1 19:56 Follow up: Response: No adverse reaction aj1 18:17 Drug: AtroVENT Aerosol 0.5 mg Route: Inhalation; aj1 19:56 Follow up: Response: No adverse reaction aj1 18:18 Drug: Rocephin - (cefTRIAXone) 1 grams Route: IVPB; Infused Over: 30 mins; Site: right aj1 antecubital; 19:55 Follow up: IV Status: Completed infusion; IV Intake: 10ml [facility] 19:43 Drug: Bactrim (160 mg-800 mg (DS) 1 tablet Route: PO; aj1 19:56 Follow up: Response: No adverse reaction aj1 19:44 Drug: Augmentin 875 mg Route: PO; aj1 19:57 Follow up: Response: No adverse reaction [facility] Disposition: 09/22/18 19:16 Discharged to Home. Impression: Abdominal tenderness, Hematuria, Urinary tract infection, site not specified, Unspecified kidney failure, Chronic obstructive pulmonary disease, unspecified, Atrial fibrillation and flutter, Type 1 diabetes mellitus, Anemia, unspecified. - Condition is Stable. - Discharge Instructions: Abdominal Pain, Adult, Atrial Fibrillation, Type 1 Diabetes Mellitus, Diagnosis, Adult, Dysuria, Urinary Tract Infection, Adult, Urinary Tract Infection, Adult, [id number], Abdominal Pain, Adult, Atzr-li-Byqw, Type 1 Diabetes Mellitus, Diagnosis, Adult, Gipg-lu-[id number]. - Prescriptions for Bactrim DS 800- 160 mg Oral Tablet - take 1 tablet by ORAL route every 12 hours for 10 days; 20 tablet. Flomax 0.4 mg Oral Capsule, Sust. Release 24 hr - take 1 capsule by ORAL route once daily 1/2 hour following the same meal each day; 20 capsule. Augmentin 875- 125 mg Oral Tablet - take 1 tablet by ORAL route every 12 hours for 7 days; 14 tablet. Zofran 4 mg Oral Tablet - take 1 tablet by ORAL route every 12 hours As needed; 10 tablet. - Medication Reconciliation Form, Thank You Letter, Antibiotic Education, Prescription Opioid Use form. - Follow up: Private Physician; When: 2 - 3 days; Reason: Recheck today's complaints, Continuance of care, Re-evaluation by your physician. Follow up: Neeraj Low; When: 2 - 3 days; Reason: Recheck today's complaints, Re-evaluation by your physician. - Problem is new. - Symptoms have improved. Signatures: Dispatcher [employer] EDMS Citlali Wells RN RN Tracy Horvath RN RN aj1 Serge Guallpa MD MD cha Corrections: (The following items were deleted from the chart) 19:21 19:16 09/22/2018 19:16 Discharged to Home. Impression: Abdominal tenderness; Hematuria; colin Urinary tract infection, site not specified; Unspecified kidney failure; Chronic obstructive pulmonary disease, unspecified; Atrial fibrillation and flutter; Type 1 diabetes mellitus. Condition is Stable. Discharge Instructions: Abdominal Pain, Adult, Atrial Fibrillation, Type 1 Diabetes Mellitus, Diagnosis, Adult, Dysuria, Urinary Tract Infection, Adult, Urinary Tract Infection, Adult, Byse-js-Psvl, Abdominal Pain, Adult, Htkk-bi-Ttmo, Type 1 Diabetes Mellitus, Diagnosis, Adult, Iyma-km-Juzd. Prescriptions for Bactrim DS 800-160 mg Oral Tablet - take 1 tablet by ORAL route every 12 hours for 10 days; 20 tablet, Flomax 0.4 mg Oral Capsule, Sust. Release 24 hr - take 1 capsule by ORAL route once daily 1/2 hour following the same meal each day; 20 capsule. and Forms are Medication Reconciliation Form, Thank You Letter, Antibiotic Education, Prescription Opioid Use. Follow up: Private Physician; When: 2 - 3 days; Reason: Recheck today's complaints, Continuance of care, Re-evaluation by your physician. Follow up: Neeraj Low; When: 2 - 3 days; Reason: Recheck today's complaints, Re-evaluation by your physician. Problem is new. Symptoms have improved. colin 19:57 19:21 09/22/2018 19:16 Discharged to Home. Impression: Abdominal tenderness; Hematuria; aj1 Urinary tract infection, site not specified; Unspecified kidney failure; Chronic obstructive pulmonary disease, unspecified; Atrial fibrillation and flutter; Type 1 diabetes mellitus; Anemia, unspecified. Condition is Stable. Discharge Instructions: Abdominal Pain, Adult, Atrial Fibrillation, Type 1 Diabetes Mellitus, Diagnosis, Adult, Dysuria, Urinary Tract Infection, Adult, Urinary Tract Infection, Adult, Tpsk-ex-[id number], Abdominal Pain, Adult, Knxx-uu-Kmsu, Type 1 Diabetes Mellitus, Diagnosis, Adult, Bwso-ap-Wrky. Prescriptions for Bactrim DS 800-160 mg Oral Tablet - take 1 tablet by ORAL route every 12 hours for 10 days; 20 tablet, Flomax 0.4 mg Oral Capsule, Sust. Release 24 hr - take 1 capsule by ORAL route once daily 1/2 hour following the same meal each day; 20 capsule, Augmentin 875-125 mg Oral Tablet - take 1 tablet by ORAL route every 12 hours for 7 days; 14 tablet. and Forms are Medication Reconciliation Form, Thank You Letter, Antibiotic Education, Prescription Opioid Use. Follow up: Private Physician; When: 2 - 3 days; Reason: Recheck today's complaints, Continuance of care, Re-evaluation by your physician. Follow up: Neeraj Low; When: 2 - 3 days; Reason: Recheck today's complaints, Re-evaluation by your physician. Problem is new. Symptoms have improved. colin
--- NOTE | 2018-09-22 19:16 | ER ---
Nurse's Notes [facility] Name: Jethro Burden Age: 73 yrs Sex: Male : 1945 Arrival Date: 09/22/2018 Time: 15:49 Bed 7 Private MD: Diagnosis: Abdominal tenderness;Hematuria;Urinary tract infection, site not specified;Unspecified kidney failure;Chronic obstructive pulmonary disease, unspecified;Atrial fibrillation and flutter;Type 1 diabetes mellitus;Anemia, unspecified Presentation: 09/22 15:52 Presenting complaint: Patient states: RUQ and LUQ abdominal pain that started aj1 yesterday. Patient states that he also noticed bright red blood in the toilet today after he went to the bathroom. Patient reports nausea, denies vomiting, diarrhea. FSBS 266. Transition of care: patient was not received from another setting of care. Onset of symptoms was August 2018. Risk Assessment: Do you want to hurt yourself or someone else? Patient reports no desire to harm self or others. Initial Sepsis Screen: Does the patient meet any 2 criteria? No. Patient's initial sepsis screen is negative. Does the patient have a suspected source of infection? Yes: Acute abdominal pain. Care prior to arrival: None. 15:52 Method Of Arrival: EMS: [facility] aj1 15:52 Acuity: TAN 3 aj1 Triage Assessment: 15:58 General: Appears in no apparent distress. uncomfortable, Behavior is calm, cooperative, aj1 appropriate for age. Pain: Complains of pain in right upper quadrant and left upper quadrant Pain currently is 6 out of 10 on a pain scale. GI: Reports upper abdominal pain. Historical: - Allergies: 15:58 NKDA; aj1 - Home Meds: 15:58 albuterol sulfate 2.5 mg /3 mL (0.083 %) Inhl nebu 3 mL Q4H prn [Active]; apixaban 5 mg aj1 Oral 1 tab 2 times per day [Active]; aspirin 81 mg Oral TbEC 1 tab once daily [Active]; atorvastatin 80 mg Oral tab 0.5 tab once daily [Active]; budesonide 3 mg Oral CECX 3 caps once daily [Active]; budesonide-formoterol inhalation 2 puffs 2 times per day [Active]; docusate sodium 100 mg Oral cap 1 cap 2 times per day [Active]; ferrous gluconate 324 mg (36 mg iron) Oral tab twice a day [Active]; finasteride 5 mg Oral tab 1 tab once daily [Active]; furosemide 40 mg Oral tab 3 tabs in am and 2 tabs in pm [Active]; gabapentin 100 mg Oral cap 1 caps 3 times per day [Active]; insulin aspart subcutaneous 35 unit three times a day [Active]; insulin detemir subcutaneous 70 units in am and 45 units in pm [Active]; ipratropium bromide 0.02 % inhalation soln 2.5 mL every 6 hours [Active]; losartan 100 mg Oral tab 1 tab once daily [Active]; magnesium oxide 420 mg Oral tab daily [Active]; metoprolol tartrate 50 mg Oral tab 1 tab once daily [Active]; pantoprazole 40 mg Oral TbEC 1 tab once daily [Active]; potassium chloride 10 mEq Oral cpER 2 caps once daily [Active]; sotalol 120 mg Oral tab 1 tab 2 times per day [Active]; - PMHx: 15:58 Atrial Fib; CHF; COPD; Crohn's; Depression; Diabetes - IDDM; Hyperlipidemia; aj1 Hypertension; prostate problems; - Immunization history:: Flu vaccine is up to date. - Social history:: Smoking status: Patient/guardian denies using tobacco. - Ebola Screening: : Patient denies travel to an Ebola-affected area in the 21 days before illness onset. - Family history:: not pertinent. Screenin:21 Abuse screen: Denies threats or abuse. Denies injuries from another. Nutritional aj1 screening: No deficits noted. Tuberculosis screening: No symptoms or risk factors identified. 17:24 Fall Risk None identified. Assessment: 16:21 General: Appears in no apparent distress. uncomfortable, Behavior is calm, cooperative, aj1 drowsy. Pain: Complains of pain in right upper quadrant and left upper quadrant Pain currently is 6 out of 10 on a pain scale. Pain began 1 day ago. Neuro: Level of Consciousness is awake, obeys commands, Patient is drowsy, but opens eyes and responds easily to verbal stimuli. Patient falls asleep when not being stimulated. Oriented to person, place, time, situation, Speech is normal. Cardiovascular: Heart tones S1 S2 present Patient's skin is warm and dry. Respiratory: Airway is patent Respiratory effort is even, unlabored, Respiratory pattern is regular, symmetrical, Breath sounds with wheezes bilaterally. GI: Abdomen is round distended, Bowel sounds present X 4 quads. Abd is soft X 4 quads Abdomen is tender to palpation in right upper quadrant Reports upper abdominal pain, bloody stool, nausea, Patient currently denies vomiting. : No signs and/or symptoms were reported regarding the genitourinary system. EENT: No signs and/or symptoms were reported regarding the EENT system. Derm: No signs and/or symptoms reported regarding the dermatologic system. Skin is pale. Musculoskeletal: No signs and/or symptoms reported regarding the musculoskeletal system. Circulation, motion, and sensation intact. 17:24 Reassessment: Patient appears in no apparent distress at this time. No changes from ch previously documented assessment. Patient and/or family updated on plan of care and expected duration. Pain level reassessed. Patient is alert, oriented x 3, equal unlabored respirations, skin warm/dry/pink. 18:43 Reassessment: Patient appears in no apparent distress at this time. No changes from aj1 previously documented assessment. Patient and/or family updated on plan of care and expected duration. Pain level reassessed. Patient is alert, oriented x 3, equal unlabored respirations, skin warm/dry/pink. 19:22 Reassessment: Patient and/or family updated on plan of care and expected duration. Pain aj1 level reassessed. General: Appears in no apparent distress. uncomfortable, Behavior is calm, cooperative. Neuro: Level of Consciousness is awake, alert, obeys commands, Oriented to person, place, time, situation, Speech is normal. Cardiovascular: Patient's skin is warm and dry. Respiratory: Airway is patent Respiratory effort is even, unlabored, Respiratory pattern is regular, symmetrical. GI: Abdomen is round distended, Reports upper abdominal pain. : No signs and/or symptoms were reported regarding the genitourinary system. EENT: No signs and/or symptoms were reported regarding the EENT system. Derm: Skin is pale. Musculoskeletal: Circulation, motion, and sensation intact. Vital Signs: 15:58 BP 166 / 67; Pulse 74; Resp 24; Temp 98.6(TE); Pulse Ox 100% on 3 lpm NC; Pain 6/10; aj1 16:21 BP 148 / 63; Pulse 76; Resp 22; Pulse Ox 100% on 3 lpm NC; aj1 17:24 BP 140 / 53; Pulse 74; Resp 18; Temp 98.1; Pulse Ox 96% on R/A; Pain 6/10; ch 18:43 BP 151 / 64; Pulse 64; Resp 22; Pulse Ox 100% on Nebulizer Mask; aj1 19:23 BP 148 / 68; Pulse 72; Resp 16; Pulse Ox 96% on 3 lpm NC; aj1 ED Course: 15:49 Patient arrived in ED. aj1 15:52 Tracy Horvath, RN is Primary Nurse. aj1 15:54 Triage completed. aj1 15:58 Arm band placed on. aj1 16:04 Serge Guallpa MD is Attending Physician. colin 16:21 Patient has correct armband on for positive identification. Bed in low position. Call [facility] light in reach. 16:21 No provider procedures requiring assistance completed. aj1 16:44 XRAY Chest (1 view) In Process Unspecified. EDMS 16:48 Inserted saline lock: 20 gauge in right upper arm, using aseptic technique. Blood ch collected. 17:24 No apparent distress. Resting quietly. ch 17:24 child monitor on. Pulse ox on. NIBP on. Warm blanket given. ch 18:35 CT Stone Protocol In Process Unspecified. EDMS 19:15 Neeraj Low MD is Referral Physician. colin 19:45 IV discontinued, intact, bleeding controlled, No redness/swelling at site. Pressure aj1 dressing applied. Administered Medications: 17:05 Drug: NS 0.9% 1000 ml Route: IV; Rate: 125 ml/hr; Site: right upper arm; ch 19:55 Follow up: IV Status: Completed infusion; IV Intake: 375ml aj1 18:17 Drug: Xopenex 1.25 mg Route: Inhalation; aj1 19:56 Follow up: Response: No adverse reaction aj1 18:17 Drug: AtroVENT Aerosol 0.5 mg Route: Inhalation; aj1 19:56 Follow up: Response: No adverse reaction aj1 18:18 Drug: Rocephin - (cefTRIAXone) 1 grams Route: IVPB; Infused Over: 30 mins; Site: right aj antecubital; 19:55 Follow up: IV Status: Completed infusion; IV Intake: 10ml aj 19:43 Drug: Bactrim (160 mg-800 mg (DS) 1 tablet Route: PO; aj1 19:56 Follow up: Response: No adverse reaction aj1 19:44 Drug: Augmentin 875 mg Route: PO; aj1 19:57 Follow up: Response: No adverse reaction aj1 Intake: 19:55 IV: 375ml; Total: 375ml. aj1 19:55 IV: 10ml; Total: 385ml. aj1 Outcome: 19:16 Discharge ordered by . colin 19:54 Discharged to home via wheelchair. aj1 19:54 Condition: stable 19:54 Discharge instructions given to patient, family, Instructed on discharge instructions, follow up and referral plans. medication usage, Demonstrated understanding of instructions, follow-up care, medications, Prescriptions given X 4. 19:57 Patient left the ED. aj1 Signatures: Dispatcher [employer] EDCitlali Rader, RN Tracy Cameron ch, RN RN aj1 Serge Guallpa MD MD cha
[2018-09-22] MEDS ORDERED: SMZ./TMP. 800/160 MG TABLET ONE (19:39)
[2018-09-22] MEDS ORDERED: AMOX/K CLAV 875 MG TAB ONE (19:39)
[2018-09-22 20:14] VITALS: TEMP 98.1
[2018-09-22 20:17] VITALS: BP 148/68; O2SAT 96
[2018-09-22 20:43] LABS: Urine Blood 3+ (NEG); Urine Glucose NEGATIVE (NEG); Urine Protein 2+ (NEG); Urine Specific Gravity 1.015 (1.005-1.030)
== END 2018-09-22 19:57 | disposition home or self-care (01) ==
LOC: ER 15:40
DX: N39.0 Urinary tract infection, site not specified (principal); N19 Unspecified kidney failure; D64.9 Anemia, unspecified; E10.9 Type 1 diabetes mellitus without complications; I48.91 Unspecified atrial fibrillation; I11.0 Hypertensive heart disease with heart failure; I50.9 Heart failure, unspecified; J44.9 Chronic obstructive pulmonary disease, unspecified; K50.90 Crohn's disease, unspecified, without complications; F32.9 Major depressive disorder, single episode, unspecified; E78.5 Hyperlipidemia, unspecified; I10 Essential (primary) hypertension; Z79.82 Long term (current) use of aspirin; Z79.4 Long term (current) use of insulin
CPT/HCPCS: 36415; 71045; 74176; 76377; 80048; 80076; 81003; 83690; 83735; 83880; 84484; 85025; 85610; 87077; 87086; 87088; 87186; 93005; 96361; 96365; 96366; 99285; J0696; J7030

== ENCOUNTER 2018-10-02 12:14 | Inpatient (IN) | payer OTHER ==
--- OUTSIDE RECORDS SUMMARY | 2018-10-02 12:16 | XMS REPORT | Clinical Summary ---
:1945 Author Organization [facility] Address [address] [place] [address] Care Team Providers Name Role Phone Asked, [...] Not on file Results Not on fileafter 10/01/2017 Insurance Payer Benefit Plan / Group Subscriber ID Type Phone Address [employer] [facility] xxxxxxxxx HMO Advance Directives Patient has advance care planning documents, and code status on file. For more information, please contact:Ari Hernandez[address] [place] [address] Code Status Date Activated Date Inactivated Comments Full Code 05/24/2016 9:28 PM 05/26/2016 4:41 PM Code Status decision reached by: Patient
--- NOTE | 2018-10-02 13:41 | ER ---
Nurse's Notes [facility] Name: Jethro Burden Age: 73 yrs Sex: Male : 1945 Arrival Date: 10/02/2018 Time: 12:16 Bed 15 Private MD: Cordell Herrera R Diagnosis: Gangrene, not elsewhere classified Presentation: 10/02 12:34 Presenting complaint: Patient states: "I talked to Dr. Espinal and I want my L leg ch amputated." chronic wounds to L foot. was seen outpatient today. Transition of care: patient was not received from another setting of care. Onset of symptoms was October 02, 2018. Risk Assessment: Do you want to hurt yourself or someone else? Patient reports no desire to harm self or others. Care prior to arrival: None. 12:34 Method Of Arrival: Wheelchair 12:34 Acuity: TAN 3 12:35 Initial Sepsis Screen: Does the patient meet any 2 criteria? RR > 20 per min. Does the rb1 patient have a suspected source of infection? No. Patient's initial sepsis screen is negative. Triage Assessment: 12:37 General: Appears in no apparent distress. uncomfortable, Behavior is calm, cooperative, ch appropriate for age. Pain: Denies pain. Historical: - Allergies: 12:37 NKDA; ch - Home Meds: 12:37 albuterol sulfate 2.5 mg /3 mL (0.083 %) Inhl nebu 3 mL Q4H prn [Active]; apixaban 5 mg ch Oral 1 tab 2 times per day [Active]; aspirin 81 mg Oral TbEC 1 tab once daily [Active]; atorvastatin 80 mg Oral tab 0.5 tab once daily [Active]; budesonide 3 mg Oral CECX 3 caps once daily [Active]; budesonide-formoterol inhalation 2 puffs 2 times per day [Active]; docusate sodium 100 mg Oral cap 1 cap 2 times per day [Active]; ferrous gluconate 324 mg (36 mg iron) Oral tab twice a day [Active]; finasteride 5 mg Oral tab 1 tab once daily [Active]; furosemide 40 mg Oral tab 3 tabs in am and 2 tabs in pm [Active]; gabapentin 100 mg Oral cap 1 caps 3 times per day [Active]; insulin aspart subcutaneous 35 unit three times a day [Active]; insulin detemir subcutaneous 70 units in am and 45 units in pm [Active]; ipratropium bromide 0.02 % inhalation soln 2.5 mL every 6 hours [Active]; losartan 100 mg Oral tab 1 tab once daily [Active]; magnesium oxide 420 mg Oral tab daily [Active]; metoprolol tartrate 50 mg Oral tab 1 tab once daily [Active]; pantoprazole 40 mg Oral TbEC 1 tab once daily [Active]; potassium chloride 10 mEq Oral cpER 2 caps once daily [Active]; sotalol 120 mg Oral tab 1 tab 2 times per day [Active]; - PMHx: 12:37 Atrial Fib; CHF; COPD; Crohn's; Depression; Diabetes - IDDM; Hyperlipidemia; ch Hypertension; prostate problems; chronic wounds; - PSHx: 12:37 bka R; ch - Immunization history:: Adult Immunizations up to date, Flu vaccine is up to date. - Social history:: Smoking status: Patient/guardian denies using tobacco. - Ebola Screening: : Patient negative for fever greater than or equal to 101.5 degrees Fahrenheit, and additional compatible Ebola Virus Disease symptoms Patient denies exposure to infectious person Patient denies travel to an Ebola-affected area in the 21 days before illness onset No symptoms or risks identified at this time. - Family history:: not pertinent. - Hospitalizations: : No recent hospitalization is reported. Screenin:35 Abuse screen: Denies threats or abuse. Nutritional screening: No deficits noted. rb1 Tuberculosis screening: No symptoms or risk factors identified. Fall Risk No fall in past 12 months (0 pts). Secondary diagnosis (15 points) impaired mobility, IV access (20 points). Ambulatory Aid- Crutches/Cane/Walker (15 pts). Gait- Impaired (20 pts.). Mental Status- Oriented to own ability (0 pts). Total Strong Fall Scale indicates High Risk Score (45 or more points). Fall prevention measures have been instituted. Side Rails Up X 2 Placed Close to Nursing Station 1:1 Attendant Assigned Frequent Obs/Assessments Occuring Family Present and informed to notify staff if the need to leave the bedside As available patient and family educated on Fall Prevention Program and Strategies. Assessment: 12:35 General: Appears in no apparent distress. comfortable, Behavior is calm, cooperative, rb1 Denies fever. Pain: Denies pain. Neuro: Level of Consciousness is awake, alert, obeys commands, Oriented to person, place, time, situation. Cardiovascular: Capillary refill < 3 seconds is brisk in bilateral fingers. Respiratory: Airway is patent Respiratory effort is even, unlabored, Respiratory pattern is regular, symmetrical. GI: No signs and/or symptoms were reported involving the gastrointestinal system. : No signs and/or symptoms were reported regarding the genitourinary system. Derm: Skin is pink, warm \\T\\ dry. Musculoskeletal: Amputation of right BKA. Reports Dr. Espinal sent the pt here to have his left leg amputated due to reoccurring wounds. 13:35 Reassessment: Patient appears in no apparent distress at this time. No changes from rb1 previously documented assessment. 13:53 Reassessment: Received a call from Tea in the lab with critical values for WBC rb1 20.9, Hgb 5.3, Hct 15.6. Provider notified. Received order to repeat the hemoglobin and hematocrit. 100% verbal read back. 14:35 Reassessment: Patient appears in no apparent distress at this time. Patient and/or rb1 family updated on plan of care and expected duration. Pain level reassessed. Patient is alert, oriented x 3, equal unlabored respirations, skin warm/dry/pink. Patient denies pain at this time. 14:42 Reassessment: Received a call from Tea in the lab with repeat lab results. WBC rb1 14.7, Hgb 9.0, Hct 27.6. Tea will run another CBC and will call us back with those results and Tea will document in the pt. chart. Provider notified. 15:30 Reassessment: Patient appears in no apparent distress at this time. No changes from rb1 previously documented assessment. at bedside. 15:40 Reassessment: Called report to RYLEE Carpio. Information from the SBAR was given. All rb1 questions asked and answered. 16:20 Reassessment: Patient appears in no apparent distress at this time. Patient and/or rb1 family updated on plan of care and expected duration. Pain level reassessed. Patient is alert, oriented x 3, equal unlabored respirations, skin warm/dry/pink. Patient denies pain at this time. Vital Signs: 12:37 BP 154 / 86; Pulse 91; Resp 22; Temp 97.9(O); Pulse Ox 97% on 3 lpm NC; Weight 92.53 ch kg; Height 6 ft. (182.88 cm); Pain 0/10; 13:35 BP 142 / 69; Pulse 75; Resp 20; Pulse Ox 100% on R/A; rb1 15:30 BP 137 / 61; Pulse 69; Resp 20; Pulse Ox 100% on R/A; Pain 0/10; rb1 16:20 BP 139 / 63; Pulse 88; Resp 21; Pulse Ox 100% on R/A; Pain 0/10; rb1 12:37 Body Mass Index 27.67 (92.53 kg, 182.88 cm) ED Course: 12:16 Patient arrived in ED. as 12:16 Cordell Herrera MD is Private Physician. as 12:30 Adam Gayle MD is Attending Physician. rn 12:35 Triage completed. 12:35 Patient has correct armband on for positive identification. Placed in gown. Bed in low rb1 position. Call light in reach. Side rails up X 1. Pulse ox on. NIBP on. Warm blanket given. 12:37 Arm band placed on left wrist. Patient placed in an exam room, on a stretcher, on oxygen, on pulse oximetry. 12:45 Ignacia Yu, RN is Primary Nurse. rb1 13:05 Missed attempt(s): 22 gauge in right antecubital area. rb1 13:25 Second set of blood cultures drawn by la. [facility] 13:41 Cordell Herrera MD is Hospitalizing Provider. rn 13:43 Missed attempt(s): 20 gauge in left antecubital area. 22 gauge in left upper arm. mh5 13:55 Initial lab(s) drawn, by la, sent to lab. Inserted saline lock: 22 gauge in right jl7 wrist, using aseptic technique. Blood collected. 16:23 No provider procedures requiring assistance completed. Patient admitted, IV remains in rb1 place. Administered Medications: No medications were administered Point of Care Testing: Blood Glucose: 13:28 Blood Glucose: 331 mg/dL; rb1 Ranges: Outcome: 13:41 Decision to Hospitalize by Provider. rn 16:23 Patient left the ED. 16:23 Admitted to Tele accompanied by tech, family with patient, via wheelchair, room 415, rb1 Report called to RYLEE Carpio 16:23 Condition: stable 16:23 Instructed on the need for admit. Signatures: Citlali Wells RN RN ch Martinez, Amelia as Nieto, Roman, MD MD rn Smirch, Shelby, RN RN ss Barber, Rebecca, RN RN [facility] Teddy, Iva [facility] Henrietta Blum RN RN jl7
--- NOTE | 2018-10-02 13:41 | EDPHYS ---
Physician Documentation [facility] Name: Jethro Burden Age: 73 yrs Sex: Male : 1945 Arrival Date: 10/02/2018 Time: 12:16 Bed 15 Private MD: Cordell Herrera R ED Physician Adam Gayle HPI: 10/02 12:40 This 73 yrs old Male presents to ER via Wheelchair with complaints of Leg rn Infection. 12:40 The patient presents with pain. Onset: The symptoms/episode began/occurred at an rn unknown time. Severity of symptoms: At their worst the symptoms were moderate, in the emergency department the symptoms are unchanged. The patient has experienced similar episodes in the past. Reports sent by Dr. Espinal for amputation, reports left 3rd toe has recently turned black, no fever.. Historical: - Allergies: 12:37 NKDA; ch - Home Meds: 12:37 albuterol sulfate 2.5 mg /3 mL (0.083 %) Inhl nebu 3 mL Q4H prn [Active]; apixaban 5 mg ch Oral 1 tab 2 times per day [Active]; aspirin 81 mg Oral TbEC 1 tab once daily [Active]; atorvastatin 80 mg Oral tab 0.5 tab once daily [Active]; budesonide 3 mg Oral CECX 3 caps once daily [Active]; budesonide-formoterol inhalation 2 puffs 2 times per day [Active]; docusate sodium 100 mg Oral cap 1 cap 2 times per day [Active]; ferrous gluconate 324 mg (36 mg iron) Oral tab twice a day [Active]; finasteride 5 mg Oral tab 1 tab once daily [Active]; furosemide 40 mg Oral tab 3 tabs in am and 2 tabs in pm [Active]; gabapentin 100 mg Oral cap 1 caps 3 times per day [Active]; insulin aspart subcutaneous 35 unit three times a day [Active]; insulin detemir subcutaneous 70 units in am and 45 units in pm [Active]; ipratropium bromide 0.02 % inhalation soln 2.5 mL every 6 hours [Active]; losartan 100 mg Oral tab 1 tab once daily [Active]; magnesium oxide 420 mg Oral tab daily [Active]; metoprolol tartrate 50 mg Oral tab 1 tab once daily [Active]; pantoprazole 40 mg Oral TbEC 1 tab once daily [Active]; potassium chloride 10 mEq Oral cpER 2 caps once daily [Active]; sotalol 120 mg Oral tab 1 tab 2 times per day [Active]; - PMHx: 12:37 Atrial Fib; CHF; COPD; Crohn's; Depression; Diabetes - IDDM; Hyperlipidemia; ch Hypertension; prostate problems; chronic wounds; - PSHx: 12:37 bka R; ch - Immunization history:: Adult Immunizations up to date, Flu vaccine is up to date. - Social history:: Smoking status: Patient/guardian denies using tobacco. - Ebola Screening: : Patient negative for fever greater than or equal to 101.5 degrees Fahrenheit, and additional compatible Ebola Virus Disease symptoms Patient denies exposure to infectious person Patient denies travel to an Ebola-affected area in the 21 days before illness onset No symptoms or risks identified at this time. - Family history:: not pertinent. - Hospitalizations: : No recent hospitalization is reported. ROS: 12:40 Constitutional: Negative for fever, chills, and weight loss, MS/Extremity: Negative for rn injury and deformity, Skin: + gangrene of left 3rd toe Exam: 12:40 Constitutional: This is a well developed, well nourished patient who is awake, alert, rn and in no acute distress. Skin: Warm, dry, + left 3rd toe with dry gangrene, no proximal streaking or swelling MS/ Extremity: + delayed cap refill left foot, weak peripheral pulses Neuro: Awake and alert, GCS 15, oriented to person, place, time, and situation. Cranial nerves II-XII grossly intact. Motor strength 5/5 in all extremities. Sensory grossly intact. Cerebellar exam normal. Normal gait. Vital Signs: 12:37 BP 154 / 86; Pulse 91; Resp 22; Temp 97.9(O); Pulse Ox 97% on 3 lpm NC; Weight 92.53 ch kg; Height 6 ft. (182.88 cm); Pain 0/10; 13:35 BP 142 / 69; Pulse 75; Resp 20; Pulse Ox 100% on R/A; rb1 15:30 BP 137 / 61; Pulse 69; Resp 20; Pulse Ox 100% on R/A; Pain 0/10; rb1 16:20 BP 139 / 63; Pulse 88; Resp 21; Pulse Ox 100% on R/A; Pain 0/10; rb1 12:37 Body Mass Index 27.67 (92.53 kg, 182.88 cm) ch MDM: 12:34 Patient medically screened. rn 13:39 Differential diagnosis: cellulitis, gangrene. Data reviewed: vital signs, nurses notes, turn out test result(s). 13:40 Counseling: I had a detailed discussion with the patient and/or guardian regarding: the rn historical points, exam findings, and any diagnostic results supporting the discharge/admit diagnosis, the need for further work-up and treatment in the hospital. Admission orders: after a detailed discussion of the patient's condition and case, the admit orders are written by me. ED course: Pt to have amputation by Dr. Espinal, spoke with Dr. Herrera, will admit.. 10/02 12:30 Order name: CBC with Diff rn 10/02 12:30 Order name: Basic Metabolic Panel; Complete Time: 14:08 rn 10/02 12:30 Order name: Blood Culture Adult (2) rn 10/02 12:31 Order name: PT-INR; Complete Time: 14:08 rn 10/02 12:31 Order name: Ptt, Activated; Complete Time: 14:08 rn 10/02 12:30 Order name: IV Start; Complete Time: 13:54 rn 10/02 13:41 Order name: NPO; Complete Time: 13:43 rn 10/02 13:56 Order name: Hematocrit [facility] 10/02 13:56 Order name: Hemoglobin [facility] 10/02 13:57 Order name: Hematocrit [facility] 10/02 13:57 Order name: Hemoglobin [facility] 10/02 14:08 Order name: Type And Screen bd 10/02 15:53 Order name: Glucose, Ancillary Testing EDMS Administered Medications: No medications were administered Point of Care Testing: Blood Glucose: 13:28 Blood Glucose: 331 mg/dL; rb1 Ranges: Critical Glucose Levels:Adult <50 mg/dl or >400 mg/dl <40 mg/dl or >180 mg/dl Disposition: 10/02/18 13:41 Hospitalization ordered by Cordell Herrera for Inpatient Admission. Preliminary diagnosis is Gangrene, not elsewhere classified. - Bed requested for Telemetry/MedSurg (Inpatient). - Status is Inpatient Admission. ss - Condition is Stable. - Problem is new. - Symptoms are unchanged. UTI on Admission? No Signatures: Dispatcher [employer] [facility] Citlali Wells, RN RN Alice Berry RN RYLEE Adam Gayle MD MD rn Smirch, Shelby, RN RN ss Corrections: (The following items were deleted from the chart) 15:18 13:55 Manual Differential ordered. [facility] 15:24 13:41 Hospitalization Ordered by Cordell Herrera MD for Inpatient Admission. Preliminary diagnosis is Gangrene, not elsewhere classified. Bed requested for Telemetry/MedSurg (Inpatient). Status is Inpatient Admission. Condition is Stable. Problem is new. Symptoms are unchanged. UTI on Admission? No. rn 16:23 15:24 10/02/2018 13:41 Hospitalization Ordered by Cordell Herrera MD for Inpatient ss Admission. Preliminary diagnosis is Gangrene, not elsewhere classified. Bed requested for Telemetry/MedSurg (Inpatient). Status is Inpatient Admission. Condition is Stable. Problem is new. Symptoms are unchanged. UTI on Admission? No. dw
[2018-10-02 13:50] LABS: Protime INR 1.29
[2018-10-02 14:05] LABS: Potassium 4.3 mmol/L (3.5-5.1)
[2018-10-02 14:31] LABS: Hematocrit 27.6 % (39.6-49.0)
[2018-10-02 14:55] LABS: Hematocrit 26.8 % (39.6-49.0)
[2018-10-02 14:57] LABS: Lymphocytes % 8.9 % (15.3-44.8); MPV 7.9 fL (7.6-11.3); Monocytes % 4.3 % (3.3-12.3)
[2018-10-02 14:58] LABS: Basophils % 0.5 % (0-1.3); Eosinophils % 1.3 % (0-4.4)
[2018-10-02 15:01] LABS: Absolute Lymphocytes (CBC) 1.3 K/uL (0.7-4.9); Absolute Neutrophil 12.4 K/uL (1.8-8.0)
[2018-10-02 15:02] LABS: Absolute Monocytes 0.6 K/uL (0.1-1.3)
[2018-10-02] MEDS ORDERED: D5 0.45 NS 1,000 ML IV SCH (15:45)
[2018-10-02] MEDS ORDERED: ONDANSETRON 4 MG/2 ML VIAL IV PRN (15:45)
[2018-10-02] MEDS ORDERED: GLUCAGON 1 MG/VIAL IM PRN (17:06)
[2018-10-02] MEDS ORDERED: D50W 25 GM/50 ML SYRINGE IV PRN (17:06)
[2018-10-02 18:07] VITALS: BMI 29.3
[2018-10-02] MEDS ORDERED: INSULIN -REGULAR HUMAN 50 UNIT/0.5 ML ML IV SCH (21:00)
[2018-10-02] MEDS: INSULIN -REGULAR HUMAN 50 UNIT/0.5 ML ML SQ SCH (22:09)
[2018-10-03] MEDS: ALBUTEROL 2.5 MG/3 ML NEB SOL NEB PRN ×3 (02:00→15:50)
[2018-10-03 05:05] LABS: Absolute Lymphocytes (CBC) 1.4 K/uL (0.7-4.9); Absolute Monocytes 0.6 K/uL (0.1-1.3); Absolute Neutrophil 7.5 K/uL (1.8-8.0); Basophils % 0.4 % (0-1.3); Eosinophils % 1.9 % (0-4.4); Hematocrit 26.8 % (39.6-49.0); Lymphocytes % 14.7 % (15.3-44.8); MPV 7.8 fL (7.6-11.3); Monocytes % 5.9 % (3.3-12.3); RBC Red Blood Cell Count 3.01 M/uL (4.33-5.43)
[2018-10-03 05:30] LABS: Potassium 4.1 mmol/L (3.5-5.1)
[2018-10-03] MEDS: PANTOPRAZOLE 40MG TABLET PO SCH (05:40)
[2018-10-03] MEDS: INSULIN -REGULAR HUMAN 50 UNIT/0.5 ML ML SQ SCH ×4 (07:30→21:22)
[2018-10-03] MEDS: FINASTERIDE 5 MG TAB PO SCH (09:00)
[2018-10-03] MEDS: ATORVASTATIN 40 MG TAB PO SCH (09:00)
[2018-10-03] MEDS: BUDESONIDE, MICRONIZED 3 MG CAP PO SCH (09:00)
[2018-10-03] MEDS: METOPROLOL XL 50 MG TAB PO SCH (09:00)
[2018-10-03] MEDS: GABAPENTIN 100 MG CAP PO SCH ×3 (09:00→21:21)
[2018-10-03] MEDS: LOSARTAN POTASSIUM 50 MG TABLET PO SCH (09:00)
[2018-10-03] MEDS: DOCUSATE NA 100 MG CAP PO SCH ×2 (09:00→21:22)
[2018-10-03] MEDS: MAGNESIUM OXIDE 400 MG TAB PO SCH (09:00)
[2018-10-03] MEDS: SERTRALINE HCL 100 MG TAB PO SCH (09:00)
[2018-10-03] MEDS: SOTALOL HCL 80 MG TAB PO SCH ×2 (09:51→21:21)
[2018-10-03] MEDS: Levofloxacin 750mg IV 750 MG/150 ML BAG IV SCH (10:00)
[2018-10-03] MEDS: NA CHLORIDE 0.9% 1,000 ML ONE ×2 (10:45→10:49)
[2018-10-03] MEDS ORDERED: ROCURONIUM 50 MG/5 ML VIAL IV ONE (10:59)
[2018-10-03] MEDS ORDERED: PROPOFOL 200 MG/20 ML VIAL IV ONE (10:59)
[2018-10-03] MEDS ORDERED: GLYCOPYRROLATE 0.2 MG/ML SYR ONE (11:00)
[2018-10-03] MEDS ORDERED: LIDOCAINE 2% MPF 5 ML VIAL ONE (11:00)
[2018-10-03] MEDS ORDERED: FENTANYL CITR 250 MCG/5 ML ONE (11:01)
[2018-10-03] MEDS ORDERED: Levofloxacin 750mg IV 750 MG/150 ML BAG IV ONE (11:11)
[2018-10-03] MEDS ORDERED: NEOSTIGMINE 1 MG/ML -10 ML VIAL ONE (11:14)
[2018-10-03] MEDS ORDERED: ONDANSETRON 4 MG/2 ML VIAL ONE (11:14)
[2018-10-03] MEDS ORDERED: EPHEDRINE SULF 50 MG/ML VIAL ONE (11:25)
--- NOTE | 2018-10-03 12:34 | P.BOP ---
Preoperative diagnosis: gangrene left foot Postoperative diagnosis: same Primary procedure: Left below knee amputation [employer] Inserting Machine Operator: Fabiana Chiu (Tisha) Estimated blood loss: 100cc Specimen: leg Findings: as above Anesthesia: General Complications: None Drain(s): JAHAIRA drain Transferred to: Recovery Room Condition: Good
[2018-10-03] MEDS ORDERED: NA CHLORIDE 0.9% 1,000 ML ONE (12:45)
[2018-10-03] MEDS ORDERED: FENTANYL CITR 100 MCG/2 ML ONE (13:26)
--- NOTE | 2018-10-03 14:11 | CON ---
DICTATION ENDS HERE BEST/IVORY Voice ID: [id number] Report ID: [id number]
--- NOTE | 2018-10-03 14:26 | CON ---
Date of Consultation: 10/02/2018 [facility]2018 and then in the hospital. History Of Present Illness: This is a case of a 73-year-old patient, well known by the surgical serv ice and medical service due to severe peripheral vascular disease. The patient has been dealing with a nonhealing wounds of the left foot region, multiple amputations of digits. Now comes with a nonhe aling wound in the foot and also gangrene of the distal part of the foot involving also third and fou rth toe. The patient already have first and second removed previously with nonhealing wounds. There is through and through open wound from the dorsum of the foot to the distal part. There was also ga ngrenous change in the lateral side of the foot. Those are new findings in the last few days. The p chrissy was seen and recommended to be admitted to the hospital for a left below-knee amputation. The patient has been thinking about it and he has made a decision to come. The patient had extensive wo rkup including trips to his bench chemist and vascular surgeons but nothing to be done to improve his circulation. He is already on Eliquis and aspirin. Past Medical History: The patient's medical problems include, atrial fibrillation, CHF, COPD, Crohn' s, diabetes, hyperlipidemia, hypertension, peripheral vascular disease. Past Surgical History: Include right below-knee amputation. Allergies: NONE. Medications: Reviewed including Eliquis. Social History: He does not smoke. He does drink alcohol. Review of Systems: Constitutional: Denies any fever. Respiratory: Denies any shortness of breath or any chest pain. Extremities: As per H and P. Ten points otherwise remarkable. Physical Examination: General: The patient is awake and alert. HEENT: Pupils are equal and reactive, anicteric. Neck: Supple. Chest: Clear. Abdomen: Soft and depressible. Nontender, distended. EXTREMITIES: On the left leg patient has gangrene of the distal part of the foot. There are some ch anges with nonhealing wounds on the distal part of the foot. The patient also has a wound through an d through from dorsal to plantar surface, nonhealing neither. The patient has gangrenous changes at the distal part of the foot. Third toe is completely black. Fourth toe is all cyanotic. Lateral si de of the foot, the patient has gangrenous changes. Dorsalis pedis pulses not palpable. Laboratory Data: Blood work shows WBC count of 14.6, hemoglobin of 8.9. INR of 1.29, creatinine is 1.6, glucose 355. Sodium is 137. Assessment: A 73-year-old patient with severe peripheral vascular disease, has been seen by Cardiolo gy before, recently has cardiac imaging nuclear medicine, pharmacological stress test, seen by the ca rdiologist previously. This patient has gangrene of the foot. He is on Eliquis, but still that area is getting infected with [id number] wound fluctuance present. New gangrenous changes in th e foot. The patient needed an emergent left below-knee amputation. He understands the benefits, alt ernatives, and risks including, but not limited to infection, bleeding, damage to adjacent structures , anesthesia complication, nonhealing wound, UT, and even . He also understands this might not relieve any symptoms. He might need more than one surgical intervention. We gave him some choice of amputation. He wants to preserve the knee so we are going to have to go through below-knee amputati on although he understand in that area circulation also is poor but he understand also that if that d oes not heal in the next several days or weeks then he will allow me to go even higher. The OR was notified. Anesthesia will proceed with the surgery. HOMERO Voice ID: [id number] Report ID: [id number]
[2018-10-03] MEDS: MORPHINE 4 MG/ML SYR IV PRN ×3 (15:21→23:20)
--- NOTE | 2018-10-03 16:50 | PN ---
Subjective: The patient has gone for surgical amputation BKA. The patient's right leg already has B KA done. Left leg with gangrenous changes and was sent to the hospital for left BKA. The patient is currently on Levaquin. Laboratory Data: Shows WBC 09909 down to 9.8, hemoglobin 8.9, platelets are 413. Blood cultures are pending. Assessment And Plan: Left lower extremity gangrenous changes. The patient has gone for below knee a mputation. We will follow the patient tomorrow. Thank you Dr. Espinal for consult. DEION/IVORY Voice ID: [id number] Report ID: [id number]
[2018-10-03] MEDS: HYDROCODONE/APAP 7.5/325 MG TAB PO PRN ×2 (17:08→21:22)
[2018-10-03] MEDS: FUROSEMIDE 40 MG TABLET PO SCH (17:08)
--- NOTE | 2018-10-03 17:50 | HP ---
Date of Admission: 10/02/2018 Chief Complaint: Gangrene, left foot. History Of Present Illness: A 73-year-old male who recently had amputation of the left big toe for yoselin tineo, has been following in Wound Care. When he was seen yesterday, he developed gangrene of anot her toe. He does not have pedal pulses. In view of this, the patient very likely would need amputat ion of the leg below-knee. The patient was admitted. The patient denies any chest pain, shortness o f breath, or other systemic symptoms. Past Medical History: Positive for hypertension, type 2 diabetes, congestive heart failure, COPD, hy pertension, hyperlipidemia, chronic atrial fibrillation. Family History: Diabetes present. Personal History: Currently nonsmoker. Home Medicines: Please refer to the chart. Review of Systems: The patient denies any fever, chills, rigors, or chest pain. Allergies: NONE. Physical Examination: General: Revealed a 73-year-old male, not in pain HEENT: Otherwise negative. Neck: Supple. JVD negative. Chest: Few scattered wheezes. Heart: Irregularity noted. Abdomen: Soft, nontender. Old surgical scar seen. Extremities: He has right below-knee amputation . Left leg shows recent surgical site of big toe amputation. There is active gangrene of the second toe, which is almost complete. Pedal pulse is absent. Assessment: 1.Gangrene, left foot. 2.Peripheral vascular disease. 3.Status post amputation, right leg. 4.Type 2 diabetes, requiring insulin. 5.Congestive heart failure, compensated. 6.Chronic atrial fibrillation, on anticoagulation. 7.Hypertension. 8.Hyperlipidemia. Plan: The patient has already been seen by Dr. Danielle and he is planning to do a below-knee amputati on because of recurrent episodes of gangrene of the toes and his high risk status. RRK/MODL Voice ID: [id number]
--- NOTE | 2018-10-03 23:56 | OP ---
Date of Procedure: 10/03/2018 Surgeon: Jose Espinal MD Preoperative Diagnosis: Left foot gangrene. Postoperative Diagnosis: Left foot gangrene. Procedure: Left below-knee amputation. Finding: Left foot gangrene. Anesthesia: General. Drains: JAHAIRA #10. Indications: This is a case of a 73-year-old patient with severe peripheral vascular disease who nee ds a below-knee amputation at least. The benefits, alternatives and risks were fully explained to th e patient, which include but are not limited to infection, bleeding, damage to adjacent structures, a nesthesia complication, nonhealing wound, failure of the flap, PA and even . He also understand s this may not relieve any symptoms, he might need more than one surgical intervention. He understoo d. Signed the consent. Description Of Procedure: The patient was brought to the operating room, placed in supine position. Anesthesia was done without complication. A time-out was called. Left leg was prepped and draped i n a sterile fashion. After that, we proceeded to marking the anterior and posterior skin incision ou tline with a marking pen. Anterior incision was made about 12 cm below the tibial tuberosity about 4 fingerbreadths. This incision was then extended laterally parallel to the tibia and fibula about 15 cm. The skin and subcutaneous tissues were carefully incised down to fascia. Saphenous veins were ligated. The fascia and the muscles then were ligated with electrocautery at the same level of the a nterior skin incision. The muscle of the anterior and lateral compartments were divided with Bovie c auterizer. Anterior tibial vessels were ligated with 0 silk. Interosseous membrane was incised. The tibial periosteum was elevated, was incised. Periosteal elevator was used. This was stripped about 2 cm higher. The tibia was then transected with a Gigli saw about 2 cm proximal to the incision wit h an anterior bevel. The area was also filed. The fibula was then exposed, dissected circumferentia lly and cut higher than the tibia area with a bone cutter. The amputation was then completed with tr ansecting the soleus muscle obliquely and the gastrocnemius muscle. Bony edges once again were made sure that we had all nice and filed. The anterior and posterior muscle flaps were approximated using Vicryl. Before that we put a JAHAIRA drain coming from the lateral side, secured in place with 3-0 nylon . Once we had the anterior and posterior aspect of the muscle approximated then we proceeded to care fully approximate the skin with a chromic and francisco. JAHAIRA was connected to bulb suction. The patien t tolerated the procedure well. Hemostasis was obtained all the time. Sponge count and instrument c ounts were correct. The patient was sent to recovery in stable condition. BEST/IVORY Voice ID: [id number] Report ID: [id number]
[2018-10-04] MEDS: PANTOPRAZOLE 40MG TABLET PO SCH (05:45)
[2018-10-04] MEDS: HYDROCODONE/APAP 7.5/325 MG TAB PO PRN ×3 (05:45→21:49)
[2018-10-04] MEDS: INSULIN -REGULAR HUMAN 50 UNIT/0.5 ML ML SQ SCH ×4 (07:30→21:49)
[2018-10-04] MEDS: GABAPENTIN 100 MG CAP PO SCH ×3 (09:06→21:49)
[2018-10-04] MEDS: METOPROLOL XL 50 MG TAB PO SCH (09:07)
[2018-10-04] MEDS: SERTRALINE HCL 100 MG TAB PO SCH (09:08)
[2018-10-04] MEDS: FUROSEMIDE 40 MG TABLET PO SCH ×2 (09:08→17:52)
[2018-10-04] MEDS: MAGNESIUM OXIDE 400 MG TAB PO SCH (09:08)
[2018-10-04] MEDS: DOCUSATE NA 100 MG CAP PO SCH ×2 (09:08→21:49)
[2018-10-04] MEDS: FINASTERIDE 5 MG TAB PO SCH (09:08)
[2018-10-04] MEDS: LOSARTAN POTASSIUM 50 MG TABLET PO SCH (09:09)
[2018-10-04] MEDS: SOTALOL HCL 80 MG TAB PO SCH ×2 (09:09→21:48)
[2018-10-04] MEDS: ATORVASTATIN 40 MG TAB PO SCH (09:09)
[2018-10-04] MEDS: APIXABAN 5 MG TABLET PO SCH ×2 (09:09→21:49)
[2018-10-04] MEDS: POTASSIUM CL SA 10 MEQ TAB PO SCH (09:10)
[2018-10-04] MEDS: BUDESONIDE, MICRONIZED 3 MG CAP PO SCH (09:10)
[2018-10-04] MEDS: Levofloxacin 750mg IV 750 MG/150 ML BAG IV SCH (09:10)
[2018-10-04] MEDS: ALBUTEROL 2.5 MG/3 ML NEB SOL NEB PRN (09:33)
[2018-10-04] MEDS: MORPHINE 4 MG/ML SYR IV PRN (15:22)
[2018-10-04] MEDS: INSULIN GLARGINE 100 UNITS/ML SQ SCH (17:51)
--- NOTE | 2018-10-05 01:10 | PN ---
The patient is afebrile. He has a Eisenberg catheter in place. His lungs have few wheezes, otherwise ne gative. In view of no evidence of active bleeding at the surgical site, he is started on Eliquis whi ch he was taking at home. ZAIRA/IVORY Voice ID: [id number] Report ID: [id number]
[2018-10-05] MEDS: MORPHINE 4 MG/ML SYR IV PRN ×2 (02:35→23:19)
[2018-10-05] MEDS: PANTOPRAZOLE 40MG TABLET PO SCH (06:38)
[2018-10-05] MEDS: LOSARTAN POTASSIUM 50 MG TABLET PO SCH (08:58)
[2018-10-05] MEDS: BUDESONIDE, MICRONIZED 3 MG CAP PO SCH (08:58)
[2018-10-05] MEDS: SERTRALINE HCL 100 MG TAB PO SCH (08:58)
[2018-10-05] MEDS: GABAPENTIN 100 MG CAP PO SCH ×3 (08:58→23:21)
[2018-10-05] MEDS: DOCUSATE NA 100 MG CAP PO SCH ×2 (08:58→23:22)
[2018-10-05] MEDS: FUROSEMIDE 40 MG TABLET PO SCH ×2 (08:58→17:44)
[2018-10-05] MEDS: MAGNESIUM OXIDE 400 MG TAB PO SCH (08:59)
[2018-10-05] MEDS: SOTALOL HCL 80 MG TAB PO SCH ×2 (08:59→23:20)
[2018-10-05] MEDS: POTASSIUM CL SA 10 MEQ TAB PO SCH (09:00)
[2018-10-05] MEDS: ATORVASTATIN 40 MG TAB PO SCH (09:00)
[2018-10-05] MEDS: METOPROLOL XL 50 MG TAB PO SCH (09:01)
[2018-10-05] MEDS: APIXABAN 5 MG TABLET PO SCH ×2 (09:01→23:21)
[2018-10-05] MEDS: FINASTERIDE 5 MG TAB PO SCH (09:01)
[2018-10-05] MEDS: INSULIN -REGULAR HUMAN 50 UNIT/0.5 ML ML SQ SCH ×4 (09:05→23:23)
[2018-10-05] MEDS: Levofloxacin 750mg IV 750 MG/150 ML BAG IV SCH (09:07)
[2018-10-05] MEDS: HYDROCODONE/APAP 7.5/325 MG TAB PO PRN ×2 (12:00→16:19)
[2018-10-05] MEDS: ALBUTEROL 2.5 MG/3 ML NEB SOL NEB SCH ×3 (15:00→23:26)
[2018-10-05] MEDS: INSULIN GLARGINE 100 UNITS/ML SQ SCH (17:44)
--- NOTE | 2018-10-06 01:59 | PN ---
The patient is doing okay. He still has Eisenberg catheter. He is afebrile. Physical therapy has not b een involved in his mobility. The patient will be tried on clamping the Eisenberg catheter to see whethe r he can urinate on his own. ZAIRA/IVORY Voice ID: [id number] Report ID: [id number]
[2018-10-06] MEDS: ALBUTEROL 2.5 MG/3 ML NEB SOL NEB SCH ×5 (03:40→20:09)
[2018-10-06] MEDS: HYDROCODONE/APAP 7.5/325 MG TAB PO PRN (05:24)
[2018-10-06] MEDS: PANTOPRAZOLE 40MG TABLET PO SCH (05:24)
[2018-10-06] MEDS: INSULIN -REGULAR HUMAN 50 UNIT/0.5 ML ML SQ SCH ×4 (08:32→20:45)
[2018-10-06] MEDS: SERTRALINE HCL 100 MG TAB PO SCH (08:33)
[2018-10-06] MEDS: POTASSIUM CL SA 10 MEQ TAB PO SCH (08:33)
[2018-10-06] MEDS: DOCUSATE NA 100 MG CAP PO SCH ×2 (08:34→20:43)
[2018-10-06] MEDS: FINASTERIDE 5 MG TAB PO SCH (08:34)
[2018-10-06] MEDS: METOPROLOL XL 50 MG TAB PO SCH (08:34)
[2018-10-06] MEDS: LOSARTAN POTASSIUM 50 MG TABLET PO SCH (08:35)
[2018-10-06] MEDS: APIXABAN 5 MG TABLET PO SCH ×2 (08:35→20:44)
[2018-10-06] MEDS: MAGNESIUM OXIDE 400 MG TAB PO SCH (08:36)
[2018-10-06] MEDS: FUROSEMIDE 40 MG TABLET PO SCH ×2 (08:36→17:24)
[2018-10-06] MEDS: ATORVASTATIN 40 MG TAB PO SCH (08:37)
[2018-10-06] MEDS: GABAPENTIN 100 MG CAP PO SCH ×3 (08:37→20:44)
[2018-10-06] MEDS: SOTALOL HCL 80 MG TAB PO SCH ×2 (08:37→20:42)
[2018-10-06] MEDS: BUDESONIDE, MICRONIZED 3 MG CAP PO SCH (08:37)
[2018-10-06] MEDS: MORPHINE 4 MG/ML SYR IV PRN ×2 (08:46→20:44)
[2018-10-06] MEDS: Levofloxacin 750mg IV 750 MG/150 ML BAG IV SCH (10:10)
[2018-10-06] MEDS: INSULIN GLARGINE 100 UNITS/ML SQ SCH (17:23)
[2018-10-07] MEDS: ALBUTEROL 2.5 MG/3 ML NEB SOL NEB SCH ×7 (04:00→23:40)
[2018-10-07] MEDS: PANTOPRAZOLE 40MG TABLET PO SCH (05:30)
[2018-10-07] MEDS: MORPHINE 4 MG/ML SYR IV PRN ×2 (06:52→23:53)
[2018-10-07] MEDS: INSULIN -REGULAR HUMAN 50 UNIT/0.5 ML ML SQ SCH ×4 (09:15→20:37)
[2018-10-07] MEDS: GABAPENTIN 100 MG CAP PO SCH ×3 (09:18→20:35)
[2018-10-07] MEDS: FINASTERIDE 5 MG TAB PO SCH (09:18)
[2018-10-07] MEDS: MAGNESIUM OXIDE 400 MG TAB PO SCH (09:18)
[2018-10-07] MEDS: POTASSIUM CL SA 10 MEQ TAB PO SCH (09:20)
[2018-10-07] MEDS: LOSARTAN POTASSIUM 50 MG TABLET PO SCH (09:21)
[2018-10-07] MEDS: APIXABAN 5 MG TABLET PO SCH ×2 (09:21→20:35)
[2018-10-07] MEDS: ATORVASTATIN 40 MG TAB PO SCH (09:21)
[2018-10-07] MEDS: DOCUSATE NA 100 MG CAP PO SCH ×2 (09:21→20:35)
[2018-10-07] MEDS: METOPROLOL XL 50 MG TAB PO SCH (09:22)
[2018-10-07] MEDS: SERTRALINE HCL 100 MG TAB PO SCH (09:22)
[2018-10-07] MEDS: SOTALOL HCL 80 MG TAB PO SCH ×2 (09:23→20:35)
[2018-10-07] MEDS: FUROSEMIDE 40 MG TABLET PO SCH ×2 (09:28→17:27)
[2018-10-07] MEDS: Levofloxacin 750mg IV 750 MG/150 ML BAG IV SCH (09:29)
[2018-10-07] MEDS: BUDESONIDE, MICRONIZED 3 MG CAP PO SCH (09:29)
[2018-10-07] MEDS: HYDROCODONE/APAP 7.5/325 MG TAB PO PRN (10:32)
--- NOTE | 2018-10-07 10:48 | PN ---
The patient is doing better. His Eisenberg is draining well. He is afebrile. His blood pressure is nor mal. He has minimal wheezing, which is normal for him. The patient otherwise is stable and Physical Therapy is seeing him for his rehab process because of his bilateral leg amputation. The patient ot [facility] is stable. ZAIRA/IVORY Voice ID: [id number] Report ID: [id number]
[2018-10-07] MEDS: INSULIN GLARGINE 100 UNITS/ML SQ SCH (17:28)
[2018-10-08] MEDS: HYDROCODONE/APAP 7.5/325 MG TAB PO PRN ×3 (02:27→21:00)
[2018-10-08] MEDS: ALBUTEROL 2.5 MG/3 ML NEB SOL NEB SCH ×5 (03:20→20:00)
[2018-10-08] MEDS: MORPHINE 4 MG/ML SYR IV PRN (04:35)
[2018-10-08] MEDS: PANTOPRAZOLE 40MG TABLET PO SCH (06:15)
[2018-10-08] MEDS: INSULIN -REGULAR HUMAN 50 UNIT/0.5 ML ML SQ SCH ×4 (09:01→20:59)
[2018-10-08] MEDS: BUDESONIDE, MICRONIZED 3 MG CAP PO SCH (09:02)
[2018-10-08] MEDS: MAGNESIUM OXIDE 400 MG TAB PO SCH (09:02)
[2018-10-08] MEDS: POTASSIUM CL SA 10 MEQ TAB PO SCH (09:02)
[2018-10-08] MEDS: FUROSEMIDE 40 MG TABLET PO SCH ×2 (09:03→17:10)
[2018-10-08] MEDS: DOCUSATE NA 100 MG CAP PO SCH ×2 (09:03→21:00)
[2018-10-08] MEDS: SOTALOL HCL 80 MG TAB PO SCH ×2 (09:03→21:01)
[2018-10-08] MEDS: ATORVASTATIN 40 MG TAB PO SCH (09:04)
[2018-10-08] MEDS: FINASTERIDE 5 MG TAB PO SCH (09:04)
[2018-10-08] MEDS: METOPROLOL XL 50 MG TAB PO SCH (09:04)
[2018-10-08] MEDS: LOSARTAN POTASSIUM 50 MG TABLET PO SCH (09:04)
[2018-10-08] MEDS: SERTRALINE HCL 100 MG TAB PO SCH (09:04)
[2018-10-08] MEDS: APIXABAN 5 MG TABLET PO SCH ×2 (09:04→21:01)
[2018-10-08] MEDS: GABAPENTIN 100 MG CAP PO SCH ×3 (09:04→21:00)
[2018-10-08] MEDS: Levofloxacin 750mg IV 750 MG/150 ML BAG IV SCH (09:10)
[2018-10-08] MEDS ORDERED: FUROSEMIDE 20 MG TABLET ONE (16:32)
[2018-10-08] MEDS: INSULIN GLARGINE 100 UNITS/ML SQ SCH (17:00)
[2018-10-09] MEDS: HYDROCODONE/APAP 7.5/325 MG TAB PO PRN (03:26)
[2018-10-09] MEDS: ALBUTEROL 2.5 MG/3 ML NEB SOL NEB SCH ×6 (04:00→20:00)
[2018-10-09] MEDS: PANTOPRAZOLE 40MG TABLET PO SCH (05:30)
[2018-10-09] MEDS ORDERED: FUROSEMIDE 20 MG TABLET ONE ×2 (08:51→17:34)
[2018-10-09] MEDS: FUROSEMIDE 40 MG TABLET PO SCH ×2 (09:00→17:28)
[2018-10-09] MEDS: SOTALOL HCL 80 MG TAB PO SCH ×2 (09:19→21:24)
[2018-10-09] MEDS: FINASTERIDE 5 MG TAB PO SCH (09:20)
[2018-10-09] MEDS: LOSARTAN POTASSIUM 50 MG TABLET PO SCH (09:20)
[2018-10-09] MEDS: DOCUSATE NA 100 MG CAP PO SCH ×2 (09:20→21:25)
[2018-10-09] MEDS: BUDESONIDE, MICRONIZED 3 MG CAP PO SCH (09:21)
[2018-10-09] MEDS: POTASSIUM CL SA 10 MEQ TAB PO SCH (09:21)
[2018-10-09] MEDS: MAGNESIUM OXIDE 400 MG TAB PO SCH (09:21)
[2018-10-09] MEDS: METOPROLOL XL 50 MG TAB PO SCH (09:21)
[2018-10-09] MEDS: GABAPENTIN 100 MG CAP PO SCH ×3 (09:24→21:25)
[2018-10-09] MEDS: SERTRALINE HCL 100 MG TAB PO SCH (09:25)
[2018-10-09] MEDS: ATORVASTATIN 40 MG TAB PO SCH (09:28)
[2018-10-09] MEDS: APIXABAN 5 MG TABLET PO SCH ×2 (09:28→21:25)
[2018-10-09] MEDS: Levofloxacin 750mg IV 750 MG/150 ML BAG IV SCH (09:28)
[2018-10-09] MEDS: INSULIN -REGULAR HUMAN 50 UNIT/0.5 ML ML SQ SCH ×4 (09:33→21:22)
--- NOTE | 2018-10-09 09:41 | P.PN ---
Subjective Date of Service: 10/08/18 Subjective: Tolerating diet, Improving Physical Examination - Vital Signs Temperature: 97.0 F Blood Pressure: 133/59 Pulse: 67 Respirations: 17 Pulse Ox (%): 98 - Physical Exam General: Alert, Oriented x3 HEENT: PERRLA, EOMI Neck: Supple Gastrointestinal: Soft and benign Integumentary: No erythema, No warmth, Other (s/p BKA, dressing changed, intact flaps, alvaro removed) Assessment And Plan - Plan may remove knee immobilizer for rehab consider rehab floor transfer Leave dressing intact. change then prn
[2018-10-09 12:41] LABS: Absolute Monocytes 0.6 K/uL (0.1-1.3); Absolute Neutrophil 5.7 K/uL (1.8-8.0); Basophils % 0.5 % (0-1.3); Eosinophils % 1.2 % (0-4.4); Hematocrit 24.8 % (39.6-49.0); Lymphocytes % 13.7 % (15.3-44.8); MPV 7.4 fL (7.6-11.3); Monocytes % 8.2 % (3.3-12.3); RBC Red Blood Cell Count 2.82 M/uL (4.33-5.43)
[2018-10-09 12:51] LABS: Potassium 3.9 mmol/L (3.5-5.1)
[2018-10-09] MEDS: INSULIN GLARGINE 100 UNITS/ML SQ SCH (16:59)
--- NOTE | 2018-10-09 17:35 | CON ---
History Of Present Illness: The patient is a 73-year-old male, coming in with gangrenous changes to his foot after which he had amputation done on October 03. The patient is doing well since then. Denie s any headache, nausea, vomiting, chest pain, or abdominal pain. Having constipation since October 03. No other medical problems at this time. The patient has significant history of peripheral vascular disease; neuropathy; type 2 diabetes mellitus; congestive heart failure; gangrene, left foot; right BKA; chronic atrial fibrillation, on anticoagulation; hypertension; hyperlipidemia. Social History: Nonsmoker. Nondrinker. Family History: Noncontributory. Medications: Currently on IV Levaquin. See MAR for other medication. Allergies: NO KNOWN DRUG ALLERGIES. Review of Systems: A 10-point review was performed. Physical Examination: General: This is a 73-year-old male, lying in bed, not in any acute cardiopulmonary distress. Vital Signs: Temperature 97, pulse 67, respirations 17, blood pressure 133/59. HEENT: Unremarkable. Neck: Supple. Lungs: Clear to auscultation. Heart: S1, S2. Regular. Abdomen: Soft, nontender. Bowel sounds present. Extremities: Left BKA wound site 28 francisco counted with 21.5 surgical wound with minimal serosangui neous discharge noted. Otherwise, the surrounding tissue looks healthy. Laboratory Data: Shows WBC 9.8 from 10/03 and 8.9 hemoglobin, platelets are 413. Chemistry from , sodium 137, potassium 4.1, chloride 99, bicarb 36, BUN 41, creatinine 1.2, glucose is 197. Micro data, blood cultures were negative from October 02. Assessment And Plan: Status post left below-knee amputation secondary to gangrenous foot wound and p oor circulation. The patient is doing better. Currently on Levaquin. We will repeat CBC, BMP. Con tinue Xeroform to the wound site and Levaquin. We will also recommend to give the patient Dulcolax f or constipation. We will follow the patient closely. Thank you Dr. Herrera and Dr. Espinal for consult. NF/MODL Voice ID: [id number] Report ID: [id number]
[2018-10-09] MEDS ORDERED: BISACODYL 10 MG RECTAL SUPP PR ONE (21:00)
--- NOTE | 2018-10-10 02:21 | PN ---
The patient is afebrile. He is getting some ambulation with the help of physical therapy. He still has Eisenberg catheter. The patient has mild wheezing. Otherwise, cardiovascular status is stable. I w ill discuss the discharge planning to see what the plans would be for him post discharge and the time of discharge. ZAIRA/IVORY Voice ID: [id number] Report ID: [id number]
[2018-10-10] MEDS: ALBUTEROL 2.5 MG/3 ML NEB SOL NEB SCH ×6 (04:00→20:00)
[2018-10-10] MEDS: PANTOPRAZOLE 40MG TABLET PO SCH (05:14)
[2018-10-10] MEDS ORDERED: POLYETHYL GLY 3350 17 GM/DOSE PO PRN (08:26)
[2018-10-10] MEDS: INSULIN -REGULAR HUMAN 50 UNIT/0.5 ML ML SQ SCH ×4 (08:27→22:20)
[2018-10-10] MEDS: MAGNESIUM OXIDE 400 MG TAB PO SCH (08:30)
[2018-10-10] MEDS: DOCUSATE NA 100 MG CAP PO SCH ×2 (08:30→22:18)
[2018-10-10] MEDS: SERTRALINE HCL 100 MG TAB PO SCH (08:31)
[2018-10-10] MEDS: GABAPENTIN 100 MG CAP PO SCH ×3 (08:31→22:19)
[2018-10-10] MEDS: FINASTERIDE 5 MG TAB PO SCH (08:31)
[2018-10-10] MEDS: APIXABAN 5 MG TABLET PO SCH ×2 (08:31→22:19)
[2018-10-10] MEDS: POTASSIUM CL SA 10 MEQ TAB PO SCH (08:31)
[2018-10-10] MEDS: BUDESONIDE, MICRONIZED 3 MG CAP PO SCH (08:32)
[2018-10-10] MEDS: FUROSEMIDE 40 MG TABLET PO SCH ×2 (08:33→17:16)
[2018-10-10] MEDS ORDERED: levoFLOXacin 500 MG TAB PO SCH (09:00)
[2018-10-10] MEDS: ATORVASTATIN 40 MG TAB PO SCH (10:23)
[2018-10-10] MEDS: LOSARTAN POTASSIUM 50 MG TABLET PO SCH (10:24)
[2018-10-10] MEDS: METOPROLOL XL 50 MG TAB PO SCH (10:24)
[2018-10-10] MEDS: SOTALOL HCL 80 MG TAB PO SCH ×2 (10:24→22:19)
[2018-10-10] MEDS: INSULIN GLARGINE 100 UNITS/ML SQ SCH (17:15)
--- NOTE | 2018-10-10 19:18 | PN ---
Subjective: The patient is lying in bed. Denies any headache, nausea, vomiting, chest pain, abdomin al pain, constipation, or diarrhea. Objective: Vital Signs: Temperature 97, pulse 90, respirations 18, blood pressure 142/65. Lungs: Clear to auscultation. Heart: S1, S2. Regular. Abdomen: Soft, nontender. Bowel sounds present. Extremity: Amputation site healing well. Laboratory Data: No new labs available for today. WBC 7.4 from yesterday. Renal insufficiency with creatinine of 1.53. Assessment And Plan: Status post left below-knee amputation for gangrenous foot. Continue antibioti c and supportive care. We will follow the patient as needed. Keep leg elevated. NF/MODL Voice ID: [id number] Report ID: [id number]
[2018-10-11] MEDS: ALBUTEROL 2.5 MG/3 ML NEB SOL NEB SCH ×6 (04:00→20:00)
[2018-10-11] MEDS: PANTOPRAZOLE 40MG TABLET PO SCH (06:36)
[2018-10-11] MEDS: INSULIN -REGULAR HUMAN 50 UNIT/0.5 ML ML SQ SCH ×4 (07:30→21:04)
[2018-10-11] MEDS: DOCUSATE NA 100 MG CAP PO SCH ×2 (09:27→21:07)
[2018-10-11] MEDS: MAGNESIUM OXIDE 400 MG TAB PO SCH (09:27)
[2018-10-11] MEDS: SOTALOL HCL 80 MG TAB PO SCH ×2 (09:27→21:05)
[2018-10-11] MEDS: GABAPENTIN 100 MG CAP PO SCH ×3 (09:28→21:07)
[2018-10-11] MEDS: APIXABAN 5 MG TABLET PO SCH ×2 (09:28→21:06)
[2018-10-11] MEDS: POTASSIUM CL SA 10 MEQ TAB PO SCH (09:28)
[2018-10-11] MEDS: LOSARTAN POTASSIUM 50 MG TABLET PO SCH (09:28)
[2018-10-11] MEDS: BUDESONIDE, MICRONIZED 3 MG CAP PO SCH (09:29)
[2018-10-11] MEDS: FINASTERIDE 5 MG TAB PO SCH (09:30)
[2018-10-11] MEDS: FUROSEMIDE 40 MG TABLET PO SCH ×2 (09:30→17:08)
[2018-10-11] MEDS: ATORVASTATIN 40 MG TAB PO SCH (09:30)
[2018-10-11] MEDS: SERTRALINE HCL 100 MG TAB PO SCH (09:31)
[2018-10-11] MEDS: METOPROLOL XL 50 MG TAB PO SCH (09:31)
[2018-10-11] MEDS: INSULIN GLARGINE 100 UNITS/ML SQ SCH (17:10)
--- NOTE | 2018-10-11 21:07 | PN ---
Subjective: The patient is lying in bed. Denies any headache, nausea, vomiting, chest pain, abdomin al pain, constipation, or diarrhea. Objective: Vital Signs: Temperature 97, pulse 62, respirations 16, blood pressure 107/54. Lungs: Clear to auscultation. Heart: S1, S2. Regular. Abdomen: Soft, nontender. Bowel sounds present. Extremity: Left BKA wound, doing well. Plan: Continue antibiotic and wound care. We will follow the patient as needed. Can be switched to oral antibiotic on discharge. NF/MODL Voice ID: [id number] Report ID: [id number]
[2018-10-12] MEDS: ALBUTEROL 2.5 MG/3 ML NEB SOL NEB SCH ×7 (04:00→23:30)
[2018-10-12] MEDS: PANTOPRAZOLE 40MG TABLET PO SCH (06:43)
[2018-10-12] MEDS: INSULIN -REGULAR HUMAN 50 UNIT/0.5 ML ML SQ SCH ×4 (07:30→21:00)
[2018-10-12] MEDS: SOTALOL HCL 80 MG TAB PO SCH ×2 (09:32→21:39)
[2018-10-12] MEDS: MAGNESIUM OXIDE 400 MG TAB PO SCH (09:32)
[2018-10-12] MEDS: GABAPENTIN 100 MG CAP PO SCH ×3 (09:33→21:00)
[2018-10-12] MEDS: METOPROLOL XL 50 MG TAB PO SCH (09:33)
[2018-10-12] MEDS: BUDESONIDE, MICRONIZED 3 MG CAP PO SCH (09:33)
[2018-10-12] MEDS: POTASSIUM CL SA 10 MEQ TAB PO SCH (09:33)
[2018-10-12] MEDS: FINASTERIDE 5 MG TAB PO SCH (09:33)
[2018-10-12] MEDS: SERTRALINE HCL 100 MG TAB PO SCH (09:33)
[2018-10-12] MEDS: ATORVASTATIN 40 MG TAB PO SCH (09:34)
[2018-10-12] MEDS: APIXABAN 5 MG TABLET PO SCH ×2 (09:34→21:38)
[2018-10-12] MEDS: LOSARTAN POTASSIUM 50 MG TABLET PO SCH (09:34)
[2018-10-12] MEDS: DOCUSATE NA 100 MG CAP PO SCH ×2 (09:34→21:38)
[2018-10-12] MEDS: FUROSEMIDE 40 MG TABLET PO SCH ×2 (09:40→17:53)
--- NOTE | 2018-10-12 12:59 | PN ---
Subjective: I spoke to the staff nurse again today regarding transfer, looks like the holdup is with the family practice medical doctor of the rehab program. The patient however is stable and his COPD is well contr olled. He is afebrile. ZAIRA/IVORY Voice ID: [id number] Report ID: [id number]
--- NOTE | 2018-10-12 17:26 | PN ---
Subjective: Patient is lying in bed. Denies any headache, nausea, vomiting, chest pain, abdominal p ain, constipation, or diarrhea. Objective: Vital Signs: Temperature 97.9, pulse 62, respirations 18, blood pressure 134/60. Lungs: Clear to auscultation. Heart: S1, S2. Regular. Abdomen: Soft, nontender. Bowel sounds present. Extremities: Left BKA wound noted, higher scab with erythematous changes. Wound also noted above t he surgical site. Assessment/plan: Status post below knee amputation for gangrenous wound of the foot. We will recomm end to continue Xeroform and apply Betadine to the lesion above and cover with double foam pad. NF/MODL Voice ID: [id number] Report ID: [id number]
[2018-10-12] MEDS: INSULIN GLARGINE 100 UNITS/ML SQ SCH (17:54)
[2018-10-13] MEDS: ALBUTEROL 2.5 MG/3 ML NEB SOL NEB SCH ×6 (03:00→23:41)
[2018-10-13] MEDS: PANTOPRAZOLE 40MG TABLET PO SCH (06:30)
[2018-10-13] MEDS: INSULIN -REGULAR HUMAN 50 UNIT/0.5 ML ML SQ SCH ×4 (08:16→21:00)
[2018-10-13] MEDS: BUDESONIDE, MICRONIZED 3 MG CAP PO SCH (08:17)
[2018-10-13] MEDS: APIXABAN 5 MG TABLET PO SCH ×2 (08:18→21:17)
[2018-10-13] MEDS: SOTALOL HCL 80 MG TAB PO SCH ×2 (08:18→21:16)
[2018-10-13] MEDS: MAGNESIUM OXIDE 400 MG TAB PO SCH (08:18)
[2018-10-13] MEDS: GABAPENTIN 100 MG CAP PO SCH ×3 (08:18→21:17)
[2018-10-13] MEDS: FINASTERIDE 5 MG TAB PO SCH (08:18)
[2018-10-13] MEDS: DOCUSATE NA 100 MG CAP PO SCH ×2 (08:18→21:17)
[2018-10-13] MEDS: POTASSIUM CL SA 10 MEQ TAB PO SCH (08:19)
[2018-10-13] MEDS: FUROSEMIDE 40 MG TABLET PO SCH ×2 (08:19→17:16)
[2018-10-13] MEDS: SERTRALINE HCL 100 MG TAB PO SCH (08:19)
[2018-10-13] MEDS: METOPROLOL XL 50 MG TAB PO SCH (08:19)
[2018-10-13] MEDS: LOSARTAN POTASSIUM 50 MG TABLET PO SCH (08:20)
[2018-10-13] MEDS: ATORVASTATIN 40 MG TAB PO SCH (08:24)
[2018-10-13] MEDS: INSULIN GLARGINE 100 UNITS/ML SQ SCH (17:17)
--- NOTE | 2018-10-13 17:27 | PN ---
I spoke to the charge nurse again regarding his discharge planning. They are not sure, but discussio n will be done as to whether he does not have any problem going home and have physical therapy done o r whether he prefers long-term, as he has bilateral leg amputation. ZAIRA/IVORY Voice ID: [id number] Report ID: [id number]
[2018-10-14] MEDS: ALBUTEROL 2.5 MG/3 ML NEB SOL NEB SCH ×6 (03:51→23:10)
[2018-10-14] MEDS: PANTOPRAZOLE 40MG TABLET PO SCH (06:26)
[2018-10-14] MEDS: SOTALOL HCL 80 MG TAB PO SCH ×2 (08:21→22:07)
[2018-10-14] MEDS: MAGNESIUM OXIDE 400 MG TAB PO SCH (08:22)
[2018-10-14] MEDS: FINASTERIDE 5 MG TAB PO SCH (08:23)
[2018-10-14] MEDS: DOCUSATE NA 100 MG CAP PO SCH ×2 (08:24→22:06)
[2018-10-14] MEDS: FUROSEMIDE 40 MG TABLET PO SCH ×2 (08:24→16:51)
[2018-10-14] MEDS: ATORVASTATIN 40 MG TAB PO SCH (08:26)
[2018-10-14] MEDS: POTASSIUM CL SA 10 MEQ TAB PO SCH (08:27)
[2018-10-14] MEDS: SERTRALINE HCL 100 MG TAB PO SCH (08:27)
[2018-10-14] MEDS: APIXABAN 5 MG TABLET PO SCH ×2 (08:28→22:07)
[2018-10-14] MEDS: LOSARTAN POTASSIUM 50 MG TABLET PO SCH (08:28)
[2018-10-14] MEDS: METOPROLOL XL 50 MG TAB PO SCH (08:29)
[2018-10-14] MEDS: GABAPENTIN 100 MG CAP PO SCH ×3 (08:29→22:07)
[2018-10-14] MEDS: INSULIN -REGULAR HUMAN 50 UNIT/0.5 ML ML SQ SCH ×4 (09:07→21:00)
[2018-10-14] MEDS: BUDESONIDE, MICRONIZED 3 MG CAP PO SCH (09:07)
[2018-10-14] MEDS: INSULIN GLARGINE 100 UNITS/ML SQ SCH (16:51)
--- NOTE | 2018-10-15 01:12 | PN ---
The patient is afebrile. He is stable clinically. The issue seems to be as his insurance denied trista ab floor, the patient wants to go to [facility] as he cannot be managed by at home with both l egs amputated. I spoke to the staff nurse. Social Service will be involved and the patient was in a rehab center in the past when he had his leg amputated before. He wants to go back. This was indic ated to the staff nurse. ZAIRA/IVORY Voice ID: [id number] Report ID: [id number]
[2018-10-15] MEDS: ALBUTEROL 2.5 MG/3 ML NEB SOL NEB SCH ×5 (03:45→20:00)
[2018-10-15] MEDS: PANTOPRAZOLE 40MG TABLET PO SCH (06:22)
[2018-10-15] MEDS: INSULIN -REGULAR HUMAN 50 UNIT/0.5 ML ML SQ SCH ×4 (07:30→20:43)
[2018-10-15] MEDS: MAGNESIUM OXIDE 400 MG TAB PO SCH (10:36)
[2018-10-15] MEDS: ATORVASTATIN 40 MG TAB PO SCH (10:36)
[2018-10-15] MEDS: POTASSIUM CL SA 10 MEQ TAB PO SCH (10:36)
[2018-10-15] MEDS: SOTALOL HCL 80 MG TAB PO SCH ×2 (10:36→20:42)
[2018-10-15] MEDS: APIXABAN 5 MG TABLET PO SCH ×2 (10:37→20:42)
[2018-10-15] MEDS: FUROSEMIDE 40 MG TABLET PO SCH ×2 (10:37→17:50)
[2018-10-15] MEDS: METOPROLOL XL 50 MG TAB PO SCH (10:37)
[2018-10-15] MEDS: LOSARTAN POTASSIUM 50 MG TABLET PO SCH (10:38)
[2018-10-15] MEDS: DOCUSATE NA 100 MG CAP PO SCH ×2 (10:38→20:41)
[2018-10-15] MEDS: SERTRALINE HCL 100 MG TAB PO SCH (10:39)
[2018-10-15] MEDS: FINASTERIDE 5 MG TAB PO SCH (10:39)
[2018-10-15] MEDS: GABAPENTIN 100 MG CAP PO SCH ×3 (10:39→20:42)
[2018-10-15] MEDS: BUDESONIDE, MICRONIZED 3 MG CAP PO SCH (10:40)
[2018-10-15] MEDS: INSULIN GLARGINE 100 UNITS/ML SQ SCH (17:48)
--- NOTE | 2018-10-15 21:24 | PN ---
Subjective: The patient is lying in bed. Denies any headache, nausea, vomiting, chest pain, abdomin al pain, constipation, or diarrhea. Objective: Vital Signs: Temperature 97, pulse 62, respirations 16, blood pressure 112/54. Lungs: Basal crackles. Heart: S1, S2. Regular. Abdomen: Soft, nontender. Bowel sounds present. Extremity: Left BKA noted. Laboratory Data: WBC 7.4, hemoglobin 8.3, platelets 376. No new BMP available today. Currently, e patient on no antibiotic. Assessment And Plan: Left below knee amputation, wound healing well. Continue wound care and follow the patient as needed. NF/MODL Voice ID: [id number] Report ID: [id number]
--- NOTE | 2018-10-16 02:58 | PN ---
The patient is basically stable, afebrile, and his leg wounds are healing well. There is no evidence of infection. Social Service is in the process for looking into skilled nursing placement in view of b ilateral leg amputation, lack of home support. ZAIRA/IVORY Voice ID: [id number] Report ID: [id number]
[2018-10-16] MEDS: ALBUTEROL 2.5 MG/3 ML NEB SOL NEB SCH ×7 (04:00→23:10)
[2018-10-16] MEDS: PANTOPRAZOLE 40MG TABLET PO SCH (05:37)
[2018-10-16] MEDS: INSULIN -REGULAR HUMAN 50 UNIT/0.5 ML ML SQ SCH ×4 (09:01→21:57)
[2018-10-16] MEDS: SOTALOL HCL 80 MG TAB PO SCH ×2 (09:02→21:56)
[2018-10-16] MEDS: SERTRALINE HCL 100 MG TAB PO SCH (09:03)
[2018-10-16] MEDS: LOSARTAN POTASSIUM 50 MG TABLET PO SCH (09:03)
[2018-10-16] MEDS: GABAPENTIN 100 MG CAP PO SCH ×3 (09:03→21:56)
[2018-10-16] MEDS: DOCUSATE NA 100 MG CAP PO SCH ×2 (09:03→21:56)
[2018-10-16] MEDS: FINASTERIDE 5 MG TAB PO SCH (09:03)
[2018-10-16] MEDS: ATORVASTATIN 40 MG TAB PO SCH (09:03)
[2018-10-16] MEDS: APIXABAN 5 MG TABLET PO SCH ×2 (09:04→21:56)
[2018-10-16] MEDS: FUROSEMIDE 40 MG TABLET PO SCH ×2 (09:04→17:36)
[2018-10-16] MEDS: POTASSIUM CL SA 10 MEQ TAB PO SCH (09:04)
[2018-10-16] MEDS: METOPROLOL XL 50 MG TAB PO SCH (09:04)
[2018-10-16] MEDS: MAGNESIUM OXIDE 400 MG TAB PO SCH (09:04)
[2018-10-16] MEDS: BUDESONIDE, MICRONIZED 3 MG CAP PO SCH (09:05)
[2018-10-16] MEDS: INSULIN GLARGINE 100 UNITS/ML SQ SCH (17:37)
--- NOTE | 2018-10-16 21:36 | PN ---
Subjective: The patient lying in bed. Denies any headache, nausea, vomiting, chest pain, abdominal pain, constipation, or diarrhea. Objective: Vital Signs: Temperature 97.4, pulse 68, respirations 15, blood pressure 110/58. Lungs: Basal crackles. Heart: S1, S2. Regular. Abdomen: Soft, nontender. Bowel sounds present. Extremities: Left BKA wound noted. Laboratory Data: Reviewed. Assessment And Plan: Left below-knee amputation wound healing well. Continue wound care. We will f ollow the patient as needed. NF/MODL Voice ID: [id number] Report ID: [id number]
--- NOTE | 2018-10-16 22:07 | PN ---
Essentially, there is no change in the clinical status of this patient. He is afebrile. His lungs h ave few scattered wheezes. Heart irregularity noted. Abdomen is soft. SAÚLK/IVORY Voice ID: [id number] Report ID: [id number]
[2018-10-17] MEDS: ALBUTEROL 2.5 MG/3 ML NEB SOL NEB SCH ×5 (04:00→19:27)
[2018-10-17] MEDS: PANTOPRAZOLE 40MG TABLET PO SCH (05:18)
[2018-10-17] MEDS: INSULIN -REGULAR HUMAN 50 UNIT/0.5 ML ML SQ SCH ×4 (07:30→20:31)
[2018-10-17] MEDS: SOTALOL HCL 80 MG TAB PO SCH ×2 (08:09→20:33)
[2018-10-17] MEDS: ATORVASTATIN 40 MG TAB PO SCH (08:10)
[2018-10-17] MEDS: FINASTERIDE 5 MG TAB PO SCH (08:10)
[2018-10-17] MEDS: POTASSIUM CL SA 10 MEQ TAB PO SCH (08:10)
[2018-10-17] MEDS: MAGNESIUM OXIDE 400 MG TAB PO SCH (08:10)
[2018-10-17] MEDS: METOPROLOL XL 50 MG TAB PO SCH (08:11)
[2018-10-17] MEDS: GABAPENTIN 100 MG CAP PO SCH ×3 (08:11→20:33)
[2018-10-17] MEDS: APIXABAN 5 MG TABLET PO SCH ×2 (08:11→20:33)
[2018-10-17] MEDS: DOCUSATE NA 100 MG CAP PO SCH ×2 (08:11→20:33)
[2018-10-17] MEDS: FUROSEMIDE 40 MG TABLET PO SCH ×2 (08:11→17:26)
[2018-10-17] MEDS: LOSARTAN POTASSIUM 50 MG TABLET PO SCH (08:12)
[2018-10-17] MEDS: SERTRALINE HCL 100 MG TAB PO SCH (08:12)
[2018-10-17] MEDS: BUDESONIDE, MICRONIZED 3 MG CAP PO SCH (08:13)
[2018-10-17 12:41] VITALS: TEMP 97.2
[2018-10-17 16:41] VITALS: BP 125/61
[2018-10-17] MEDS: INSULIN GLARGINE 100 UNITS/ML SQ SCH (17:27)
--- NOTE | 2018-10-17 19:28 | PN ---
Date of Progress Note: 10/17/2018 Subjective: Status post left below-knee amputation. The patient doing well. No complaint. Receivi ng physical therapy and evaluation by the Infectious Disease. Objective: General: The patient is awake and alert. No distress. Chest: Clear. EXTREMITIES: Left below-knee amputation looks 100% intake, flap looks 100%. We removed the area of the staple. No erythema, no cellulitis, no necrotic tissue. Plan: He may be discharged home or rehab whenever the medical doctor believes is appropriate. From the surgical standpoint, we are going to refer him to the [facility] to start working on his r ehabilitation and also his prosthetic. If he gets discharged home, then we will ask him to see us in the office in about a week from now. BEST/IVORY Voice ID: [id number] Report ID: [id number]
--- NOTE | 2018-10-17 21:05 | PN ---
The patient finally got accepted to the [facility], and he is stable with no temperature, and his l ungs are clear. In view of his stable clinical condition, his transfer has been okayed by me. ZAIRA/IVORY Voice ID: [id number] Report ID: [id number]
[2018-10-17 21:07] VITALS: O2SAT 99
--- NOTE | 2018-10-18 09:06 | PN ---
Subjective: Patient lying in bed. No new acute event. The patient is off antibiotic. No fevers. No other problems. Objective: Vital signs temperature 98, pulse 63, respirations 18, blood pressure 130-61 lungs clear to auscultation heart S1, S2. Regular. Abdomen: Soft, nontender. Bowel sounds present. Extremities: No erythematous changes. wound is improving. Assessment And Plan: Status post left BKA. The patient is doing well. We will discharge him from I nfectious Disease service as the patient is not on any antibiotic at this time. NF/MODL Voice ID: [id number] Report ID: [id number]
== END 2018-10-17 20:45 | DRG 240 ==
LOC: ER 12:14 → ERHOLD 15:06 → 4TH 15:49
PROVIDERS: ADMIT Internal Medicine; ATTEND Internal Medicine
PROC: 0Y6J0Z1 Detachment at Left Lower Leg, High, Open Approach (ICD-10-PCS; principal; 2018-10-03 13:30)
DX: E11.52 Type 2 diabetes mellitus with diabetic peripheral angiopathy with gangrene (principal); I96 Gangrene, not elsewhere classified; Z79.4 Long term (current) use of insulin; Z89.511 Acquired absence of right leg below knee; E78.5 Hyperlipidemia, unspecified; I48.2 Chronic atrial fibrillation; Z79.01 Long term (current) use of anticoagulants; K59.00 Constipation, unspecified; J44.9 Chronic obstructive pulmonary disease, unspecified; I10 Essential (primary) hypertension
CPT/HCPCS: 11042; 36415; 80048; 82962; 85014; 85018; 85025; 85610; 85730; 86850; 86900; 86901; 87040; 88305; 88311; 94640; 97110; 97162; 97530; 97542; 99285; J2405; J2704; J2710; J3010; J7030

== ENCOUNTER 2018-12-01 12:10 | Emergency (ER) | payer OTHER ==
--- OUTSIDE RECORDS SUMMARY | 2018-12-01 12:13 | XMS REPORT | Clinical Summary ---
:1945 Author Organization [facility] Address [address] [place] [address] Care Team Providers Name Role Phone Asked, [...] Not on file Results Not on fileafter 11/30/2017 Insurance Payer Benefit Plan / Group Subscriber ID Type Phone Address [facility] xxxxxxxxx HMO Advance Directives Patient has advance care planning documents, and code status on file. For more information, please contact:Ari Hernandez[address] [place] [address] Code Status Date Activated Date Inactivated Comments Full Code 05/24/2016 9:28 PM 05/26/2016 4:41 PM Code Status decision reached by: Patient
[2018-12-01 13:57] LABS: Absolute Lymphocytes (CBC) 1.5 K/uL (0.7-4.9); Absolute Neutrophil 11.8 K/uL (1.8-8.0); Basophils % 0.4 % (0-1.3); Eosinophils % 1.5 % (0-4.4); Hematocrit 25.6 % (39.6-49.0); Lymphocytes % 10.2 % (15.3-44.8); MPV 8.9 fL (7.6-11.3); Monocytes % 6.7 % (3.3-12.3); RBC Red Blood Cell Count 2.81 M/uL (4.33-5.43)
[2018-12-01 13:58] LABS: Protime INR 1.03
[2018-12-01] MEDS ORDERED: INSULIN -REGULAR HUMAN 50 UNIT/0.5 ML ML ONE ×3 (14:06→17:36)
[2018-12-01] MEDS ORDERED: ONDANSETRON 4 MG/2 ML VIAL ONE (14:33)
[2018-12-01 14:41] LABS: ALT/SGPT 21 U/L (12-78); AST/SGOT 14 U/L (15-37); Albumin 2.7 g/dL (3.4-5.0); Alkaline Phosphatase 178 U/L (45-117); BUN Blood Urea Nitrogen 63 mg/dL (7-18); Bicarbonate 28 mmol/L (21-32); Bilirubin Total 0.3 mg/dL (0.2-1.0); Magnesium 2.1 mg/dL (1.8-2.4); NT PRO-BNP 777 pg/mL (<125); Potassium 4.4 mmol/L (3.5-5.1); Protein, Total 6.5 g/dL (6.4-8.2); Sodium Level 133 mmol/L (136-145); Troponin (Emerg Dept Use Only) < 0.02 ng/mL (0.0-0.045)
[2018-12-01 14:43] LABS: Glucose Level 451 mg/dL (74-106)
--- NOTE | 2018-12-01 15:16 | RAD REPORT ---
EXAM DESCRIPTION: CT - Chest For Pe Angio - 12/01/2018 2:40 pm CLINICAL HISTORY: hemoptysis COMPARISON: August 2018 TECHNIQUE: Dynamically enhanced axial 3 mm thick images of the chest were obtained during administra tion of <100> mL Isovue 370 IV contrast. Coronal and oblique reconstruction images were generated and reviewed. Exam utilizes a protocol for optimal evaluation of pulmonary arterial tree. Maximum intensity projections 3D imaging was utilized All CT scans are performed using dose optimization technique as appropriate and may include automated exposure control or mA/KV adjustment according to patient size. FINDINGS: A pulmonary embolus is not seen. A thoracic aortic aneurysm is not noted. A pleural effusion is not seen. A pericardial effusion is not seen. A lung consolidation is not present. 22 millimeter right thyroid nodule unchanged IMPRESSION: Negative for a pulmonary embolism.
[2018-12-01] MEDS ORDERED: METOCLOPRAMIDE 10 MG/2mL INJ ONE (16:23)
--- NOTE | 2018-12-01 16:24 | EDPHYS ---
Physician Documentation [facility] Name: Jethro Burden Age: 73 yrs Sex: Male : 1945 Arrival Date: 12/01/2018 Time: 12:25 Bed 15 Private MD: ED Physician Adam Gayle HPI: 12/01 12:44 This 73 yrs old Male presents to ER via EMS with complaints of Blood tinged ps1 sputum. 12:44 patient has a history of DM s/p BKA-bilat, CAD s/p 3 stents, HTN, COPD, Afib on eliquis ps1 but not on medications 2/2 being out and waiting for medication from [place]. Patient is wheelchair bound 2/2 BKA. States that he has been in his USOH until this morning when he coughed up appx 50mL of blood and clots from his lungs. Patient states that he has chronic JIE 2/2 CHF and is essentially unchanged. Denies chest pain. . Historical: - Allergies: 12:10 NKDA; rb1 - Home Meds: 12:10 albuterol sulfate 2.5 mg /3 mL (0.083 %) Inhl nebu 3 mL Q4H prn [Active]; apixaban 5 mg rb1 Oral 1 tab 2 times per day [Active]; aspirin 81 mg Oral TbEC 1 tab once daily [Active]; atorvastatin 80 mg Oral tab 0.5 tab once daily [Active]; budesonide 3 mg Oral CECX 3 caps once daily [Active]; budesonide-formoterol inhalation 2 puffs 2 times per day [Active]; docusate sodium 100 mg Oral cap 1 cap 2 times per day [Active]; ferrous gluconate 324 mg (36 mg iron) Oral tab twice a day [Active]; finasteride 5 mg Oral tab 1 tab once daily [Active]; furosemide 40 mg Oral tab 3 tabs in am and 2 tabs in pm [Active]; gabapentin 100 mg Oral cap 1 caps 3 times per day [Active]; insulin aspart subcutaneous 35 unit three times a day [Active]; insulin detemir subcutaneous 70 units in am and 45 units in pm [Active]; ipratropium bromide 0.02 % inhalation soln 2.5 mL every 6 hours [Active]; losartan 100 mg Oral tab 1 tab once daily [Active]; magnesium oxide 420 mg Oral tab daily [Active]; metoprolol tartrate 50 mg Oral tab 1 tab once daily [Active]; pantoprazole 40 mg Oral TbEC 1 tab once daily [Active]; potassium chloride 10 mEq Oral cpER 2 caps once daily [Active]; sotalol 120 mg Oral tab 1 tab 2 times per day [Active]; - PMHx: 12:10 Atrial Fib; CHF; chronic wounds; COPD; Crohn's; Depression; Diabetes - IDDM; rb1 Hyperlipidemia; Hypertension; prostate problems; - PSHx: 12:10 Bilateral BKA; rb1 - Immunization history:: Pneumococcal vaccine is not up to date, . - Social history:: Smoking status: Patient/guardian denies using tobacco. - Ebola Screening: : Patient negative for fever greater than or equal to 101.5 degrees Fahrenheit, and additional compatible Ebola Virus Disease symptoms. ROS: 12:44 Constitutional: Negative for fever, chills, and weight loss, Eyes: Negative for injury, ps1 pain, redness, and discharge, ENT: Negative for injury, pain, and discharge, Neck: Negative for injury, pain, and swelling, Cardiovascular: Negative for chest pain, palpitations, and edema, Abdomen/GI: Negative for abdominal pain, nausea, vomiting, diarrhea, and constipation, Back: Negative for injury and pain, MS/Extremity: Negative for injury and deformity, Skin: Negative for injury, rash, and discoloration, Neuro: Negative for headache, weakness, numbness, tingling, and seizure. 12:44 Respiratory: Positive for hemoptysis. Exam: 12:44 Constitutional: This is a well developed, well nourished patient who is awake, alert, ps1 and in no acute distress. Head/Face: Normocephalic, atraumatic. Eyes: Pupils equal round and reactive to light, extra-ocular motions intact. Lids and lashes normal. Conjunctiva and sclera are non-icteric and not injected. Chest/axilla: Normal chest wall appearance and motion. Nontender with no deformity. No lesions are appreciated. 12:44 Respiratory: Lungs have equal breath sounds bilaterally, clear to auscultation and percussion. No rales, rhonchi or wheezes noted. No increased work of breathing, no retractions or nasal flaring. Abdomen/GI: Soft, non-tender, with normal bowel sounds. No distension or tympany. No guarding or rebound. No evidence of tenderness throughout. 12:44 Cardiovascular: Rate: tachycardic, Rhythm: regular, Pulses: no pulse deficits are appreciated. 12:44 Musculoskeletal/extremity: Extremities: bilateral BKA. Vital Signs: 12:10 BP 101 / 54; Pulse 115; Resp 17; Temp 97.7(O); Pulse Ox 99% on R/A; Weight 92.08 kg rb1 (R); Height 5 ft. 2 in. (157.48 cm) (R); Pain 7/10; 13:00 BP 102 / 58; Pulse 108; Resp 20; Temp 97.9(O); Pulse Ox 100% on R/A; rb1 14:00 BP 123 / 64; Pulse 103; Resp 19; Temp 97.8(O); Pulse Ox 99% on 2 lpm NC; rb1 15:03 BP 141 / 62 RA Supine; Pulse 112; Resp 17; Pulse Ox 99% on 2 lpm NC; ss 15:14 Temp 97.9(O); rb1 16:00 BP 141 / 67; Pulse 115; Resp 12; Temp 97.1(TE); Pulse Ox 98% on 2 lpm NC; rb1 17:00 BP 134 / 70; Pulse 115; Resp 15; Temp 97.4(O); Pulse Ox 100% ; Pain 5/10; rb1 18:00 BP 152 / 83; Pulse 111; Resp 14; Temp 97.6(O); Pulse Ox 99% on R/A; Pain 5/10; rb1 19:30 BP 131 / 56; Pulse 116; Resp 16 S; Temp 97.9(O); Pulse Ox 100% on 2 lpm NC; cc3 20:00 BP 133 / 80; Pulse 129; Resp 17 S; Pulse Ox 97% on 2 lpm NC; cc3 20:30 BP 109 / 94; Pulse 119; Resp 18 S; Pulse Ox 98% on 2 lpm NC; cc3 21:00 BP 133 / 63; Pulse 126; Resp 16 S; Pulse Ox 96% on 2 lpm NC; cc3 12:10 Body Mass Index 37.13 (92.08 kg, 157.48 cm) rb1 MDM: 12:56 Patient medically screened. ps1 19:21 ED course: Pt handed off to me by Dr. Tilley, was admitted for [address] Herrera for rn hemoptysis, ct chest negative given abx, then began having melena, foul smelling, hemoglobin baseline is around 9, today is 8, off of eliquis for 5 days, and Dr. Herrera requested transfer given no GI. I spoke with GI at [facility], who accepts patient as a consult, requests hospitalist admit. . 12/01 12:42 Order name: CBC with Diff; Complete Time: 14:12 ps1 12/01 12:42 Order name: Magnesium; Complete Time: 14:50 ps1 12/01 12:42 Order name: NT PRO-BNP; Complete Time: 14:50 ps1 12/01 12:42 Order name: PT-INR; Complete Time: 14:12 ps1 12/01 12:42 Order name: Troponin (emerg Dept Use Only); Complete Time: 14:50 ps1 12/01 12:42 Order name: CMP; Complete Time: 14:50 ps1 12/01 14:19 Order name: Ptt, Activated; Complete Time: 16:04 ps1 12/01 14:19 Order name: Fibrinogen; Complete Time: 16:04 ps1 12/01 15:02 Order name: Glucose; Complete Time: 16:04 ss 12/01 18:46 Order name: CBC with Diff ps1 12/01 19:06 Order name: Glucose, Ancillary Testing; Complete Time: 19:07 EDMS 12/01 19:06 Order name: Glucose, Ancillary Testing; Complete Time: 19:07 EDMS 12/01 19:06 Order name: Glucose, Ancillary Testing; Complete Time: 19:07 EDMS 12/01 19:06 Order name: Glucose, Ancillary Testing; Complete Time: 19:07 EDMS 12/01 12:42 Order name: EKG; Complete Time: 12:43 ps1 12/01 12:42 Order name: Cardiac monitoring; Complete Time: 13:46 ps1 12/01 12:42 Order name: EKG - Nurse/Tech; Complete Time: 13:46 ps1 12/01 12:42 Order name: IV Saline Lock; Complete Time: 14:34 ps1 12/01 12:42 Order name: CT Chest For PE Angio; Complete Time: 16:04 ps1 12/01 18:46 Order name: CT Abdomen - With Contrast; Complete Time: 18:56 ps1 12/01 18:55 Interpretation: Abnormal. ps1 12/01 12:42 Order name: Labs collected and sent; Complete Time: 13:46 ps1 12/01 12:42 Order name: O2 Per Protocol; Complete Time: 13:46 ps1 12/01 12:42 Order name: O2 Sat Monitoring; Complete Time: 13:46 ps1 Administered Medications: 13:58 Drug: Insulin Regular Human 15 units {Co-Signature: aj1 (Tracy Horvath RN).} Route: rb1 Sub-Q; Site: abdomen; 15:07 Follow up: Response: Blood sugar is elevated ss 16:15 Drug: Insulin Regular Human 15 units {Co-Signature: aj1 (Tracy Horvath RN).} Route: rb1 Sub-Q; Site: abdomen; 16:20 Drug: Reglan 10 mg Route: IVP; Site: left antecubital; rb1 16:40 Follow up: Response: No adverse reaction; Nausea is decreased rb1 16:30 CANCELLED (Duplicate Order): Rocephin - (cefTRIAXone) 1 grams IVPB once over 30 mins; rb1 (mix in 50 mL NS) 16:40 Drug: Rocephin 1 grams Route: IV; Rate: calculated rate; Site: left antecubital; rb1 17:10 Follow up: Response: No adverse reaction; IV Status: Completed infusion rb1 17:17 Drug: AZITHromycin 500 mg Route: IVPB; Infused Over: 1 hrs; Site: left antecubital; rb1 17:26 Drug: Insulin Regular Human 20 units {Co-Signature: aj1 (Tracy Horvath RN).} Route: rb1 Sub-Q; Site: abdomen; 19:00 Follow up: Response: No adverse reaction cc3 19:25 Drug: ProTONIX 80 mg Route: IVP; Site: left antecubital; cc3 19:30 Follow up: Response: No adverse reaction cc3 19:30 Drug: ProTONIX 8 mg/hr Route: IV; Rate: 25 ml/hr; Site: left antecubital; cc3 20:30 Follow up: Response: No adverse reaction; IV Status: Infusion continued upon transfer; cc3 IV Intake: 25ml 19:40 Drug: NS 0.9% 500 ml Route: IV; Rate: bolus; Site: left antecubital; cc3 20:40 Follow up: Response: No adverse reaction; IV Status: Infusion continued upon transfer; cc3 IV Intake: 300ml Point of Care Testing: Blood Glucose: 13:43 Blood Glucose: High (>450 mg/dL); rb1 15:01 Blood Glucose: 483 mg/dL; ss 17:10 Blood Glucose: 434 mg/dL; rb1 19:15 Blood Glucose: 444 mg/dL; oe 13:43 Dr. Tilley notified. No additional labs ordered at this time. Received order for rb1 Regular insulin 15 units Sub Q x 1. 17:10 Dr. Tilley notified. Received order for Regular insulin 20 units Sub Q x 1 rb1 Ranges: Critical Glucose Levels:Adult <50 mg/dl or >400 mg/dl <40 mg/dl or >180 mg/dl Disposition: 12/01/18 19:[address] [facility]. Diagnosis are Hemoptysis, Melena, Dyspnea, unspecified. - Reason for transfer: Higher level of care. - Accepting physician is Dr. Matson. - Condition is Stable. - Problem is new. - Symptoms have improved. Signatures: Dispatcher [employer] EDMS Adam Gayle MD MD rn Smirch, Shelby, RN RN ss Oc Bowden RN RN la1 Ignacia Yu RN RN rb1 Lionel Tilley MD MD ps1 Laurence Dutton cc3 Tracy Horvath RN aj1 Corrections: (The following items were deleted from the chart) 16:30 16:21 Rocephin - (cefTRIAXone) 1 grams IVPB once over 30 mins; (mix in 50 mL NS) rb1 ordered. ps1 18:45 16:23 Hospitalization Ordered by Cordell Herrera MD for Inpatient Admission. Preliminary ss diagnosis is Hemoptysis. Bed requested for Intensive Care Unit. Status is Inpatient Admission. Condition is Guarded. Problem is new. Symptoms are unchanged. UTI on Admission? No. 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 Preliminary diagnosis is Hemoptysis. Bed requested for Intensive Care Unit. Status is Inpatient Admission. Condition is Guarded. Problem is new. Symptoms are unchanged. UTI on Admission? No. ss 21:21 19:29 12/01/2018 19:[address] [facility]. Diagnosis is cc3 Hemoptysis; Melena; Dyspnea, unspecified. Reason for transfer: Higher level of care. Accepting physician is Dr. Matson. Condition is Stable. Problem is new. Symptoms have improved. rn
--- NOTE | 2018-12-01 16:24 | ER ---
Nurse's Notes [facility] Name: Jethro Burden Age: 73 yrs Sex: Male : 1945 Arrival Date: 12/01/2018 Time: 12:25 Bed 15 Private MD: Diagnosis: Hemoptysis;Melena;Dyspnea, unspecified Presentation: 12/01 12:10 Presenting complaint: EMS states: 73 yr. old, A \T\ O x 4. Called EMS for bloody sputum rb1 approximately 50 ml. BP 100/50, 90/60, and the last BP 115/65. NKA, bilateral BKA. Has Rhonchi on the right side. Transition of care: patient was not received from another setting of care. Onset of symptoms was December 01, 2018. Risk Assessment: Do you want to hurt yourself or someone else? Patient reports no desire to harm self or others. Care prior to arrival: None. 12:10 Method Of Arrival: EMS: [facility] rb1 12:10 Acuity: TAN 3 rb1 12:10 Initial Sepsis Screen: Does the patient meet any 2 criteria? No. Patient's initial rb1 sepsis screen is negative. Does the patient have a suspected source of infection? No. Patient's initial sepsis screen is negative. Triage Assessment: 12:10 General: Appears in no apparent distress. comfortable, Behavior is calm, cooperative. rb1 Pain: Complains of pain in low back pain Pain currently is 7 out of 10 on a pain scale. Neuro: Level of Consciousness is awake, alert, obeys commands, Oriented to person, place, time, situation. Cardiovascular: Capillary refill < 3 seconds is brisk in bilateral fingers. Respiratory: Airway is patent Respiratory effort is even, unlabored, Respiratory pattern is regular, symmetrical. GI: Reports nausea. : No signs and/or symptoms were reported regarding the genitourinary system. Derm: Skin is pink, warm \T\ dry. Musculoskeletal: Amputation of Bilateral BKA. Range of motion: intact in all extremities. Historical: - Allergies: 12:10 NKDA; rb1 - Home Meds: 12:10 albuterol sulfate 2.5 mg /3 mL (0.083 %) Inhl nebu 3 mL Q4H prn [Active]; apixaban 5 mg rb1 Oral 1 tab 2 times per day [Active]; aspirin 81 mg Oral TbEC 1 tab once daily [Active]; atorvastatin 80 mg Oral tab 0.5 tab once daily [Active]; budesonide 3 mg Oral CECX 3 caps once daily [Active]; budesonide-formoterol inhalation 2 puffs 2 times per day [Active]; docusate sodium 100 mg Oral cap 1 cap 2 times per day [Active]; ferrous gluconate 324 mg (36 mg iron) Oral tab twice a day [Active]; finasteride 5 mg Oral tab 1 tab once daily [Active]; furosemide 40 mg Oral tab 3 tabs in am and 2 tabs in pm [Active]; gabapentin 100 mg Oral cap 1 caps 3 times per day [Active]; insulin aspart subcutaneous 35 unit three times a day [Active]; insulin detemir subcutaneous 70 units in am and 45 units in pm [Active]; ipratropium bromide 0.02 % inhalation soln 2.5 mL every 6 hours [Active]; losartan 100 mg Oral tab 1 tab once daily [Active]; magnesium oxide 420 mg Oral tab daily [Active]; metoprolol tartrate 50 mg Oral tab 1 tab once daily [Active]; pantoprazole 40 mg Oral TbEC 1 tab once daily [Active]; potassium chloride 10 mEq Oral cpER 2 caps once daily [Active]; sotalol 120 mg Oral tab 1 tab 2 times per day [Active]; - PMHx: 12:10 Atrial Fib; CHF; chronic wounds; COPD; Crohn's; Depression; Diabetes - IDDM; rb1 Hyperlipidemia; Hypertension; prostate problems; - PSHx: 12:10 Bilateral BKA; rb1 - Immunization history:: Pneumococcal vaccine is not up to date, . - Social history:: Smoking status: Patient/guardian denies using tobacco. - Ebola Screening: : Patient negative for fever greater than or equal to 101.5 degrees Fahrenheit, and additional compatible Ebola Virus Disease symptoms. Screenin:10 Abuse screen: Denies threats or abuse. Nutritional screening: No deficits noted. rb1 Tuberculosis screening: No symptoms or risk factors identified. Fall Risk No fall in past 12 months (0 pts). Secondary diagnosis (15 points) impaired mobility, No IV (0 pts). Ambulatory Aid- Crutches/Cane/Walker (15 pts). Gait- Impaired (20 pts.). Mental Status- Oriented to own ability (0 pts). Total Strong Fall Scale indicates High Risk Score (45 or more points). Fall prevention measures have been instituted. Side Rails Up X 2 Placed Close to Nursing Station 1:1 Attendant Assigned Frequent Obs/Assessments Occuring Family Present and informed to notify staff if the need to leave the bedside As available patient and family educated on Fall Prevention Program and Strategies. Assessment: 12:10 General: See triage assessment. rb1 13:00 Reassessment: Patient appears in no apparent distress at this time. No changes from rb1 previously documented assessment. 14:00 Reassessment: Patient appears in no apparent distress at this time. Patient and/or rb1 family updated on plan of care and expected duration. Pain level reassessed. Patient is alert, oriented x 3, equal unlabored respirations, skin warm/dry/pink. Family at bedside. 14:31 Reassessment: Pt. went to CT. rb1 15:00 Reassessment: Patient appears in no apparent distress at this time. Patient and/or rb1 family updated on plan of care and expected duration. Pain level reassessed. Patient is alert, oriented x 3, equal unlabored respirations, skin warm/dry/pink. 15:08 Reassessment: Blood sugar has increased despite administration of SQ insulin. BGL >450. ss Sent serum glucose to lab per protocol. Dr. Tilley notified. Awaiting further orders. Respiratory: Respiratory effort is even, unlabored. 16:00 Reassessment: Patient appears in no apparent distress at this time. No changes from rb1 previously documented assessment. Family remains at bedside. Pt. instructed on need for admit. 16:38 Reassessment: Faxed order for Azithromycin 500 IVPB. rb1 17:00 Reassessment: Patient appears in no apparent distress at this time. Patient and/or rb1 family updated on plan of care and expected duration. Pain level reassessed. Patient is alert, oriented x 3, equal unlabored respirations, skin warm/dry/pink. Family at bedside. 17:19 Reassessment: Pt. is still coughing up sputum but the bleeding has decreased. rb1 17:33 Reassessment: Pt./family were instructed not to give anything to eat or drink to the rb1 pt., they verbalized understanding. 17:45 Reassessment: Pt. had a bowel movement that was soft brown stool, large BM. rb1 18:30 Reassessment: Patient appears in no apparent distress at this time. Patient and/or rb1 family updated on plan of care and expected duration. Pain level reassessed. Patient is alert, oriented x 3, equal unlabored respirations, skin warm/dry/pink. Pt. had a bowel movement, diarrhea dark jelly like stool. Dr. Tilley notified. No new order received at this time. 19:15 Reassessment: Patient appears in no apparent distress at this time. Patient and/or cc3 family updated on plan of care and expected duration. Pain level reassessed. Patient is alert, oriented x 3, equal unlabored respirations, skin warm/dry/pink. Received this male patient from morning shift RN Ignacia as a case of melena, hemoptysis and dyspnea unspecified, for transfer awaiting transfer form. Dr. Gayle and Dr. Tilley at bedside explaining the plan of care to the patient and the patient's . With IV cannula gauge 22 at the left ACV saline locked. Patient noted to have bilateral BKA, on oxygen therapy by nasal cannula at 2LPM saturating well. 19:40 Reassessment: Patient appears in no apparent distress at this time. Patient and/or cc3 family updated on plan of care and expected duration. Pain level reassessed. Patient is alert, oriented x 3, equal unlabored respirations, skin warm/dry/pink. Patient passed moderate amount of dark red somewhat watery stool, cleaned the patient and diaper was changed. Patient's a hardstick and refused for another IV cannula and repeat CBC, charge nurse Mary informed and she said she informed Dr. Gayle and Dr. Gayle said no need for repeat CBC and that he'll cancel the order. 19:50 Reassessment: Patient appears in no apparent distress at this time. Patient and/or cc3 family updated on plan of care and expected duration. Pain level reassessed. Patient is alert, oriented x 3, equal unlabored respirations, skin warm/dry/pink. Patient for transfer to [facility], report called and handed over to RYLEE Sandoval for continuity of care and management. Transfer form completed signed by the patient himself. EMS contacted by ED information clerk for patient transport. 20:45 Reassessment: Patient appears in no apparent distress at this time. Patient and/or cc3 family updated on plan of care and expected duration. Pain level reassessed. Patient is alert, oriented x 3, equal unlabored respirations, skin warm/dry/pink. [facility] came for patient transport. 21:15 Reassessment: Patient appears in no apparent distress at this time. Patient and/or cc3 family updated on plan of care and expected duration. Pain level reassessed. Patient is alert, oriented x 3, equal unlabored respirations, skin warm/dry/pink. Patient left ER for transport vitally stable by EMS stretcher with his and family. Vital Signs: 12:10 BP 101 / 54; Pulse 115; Resp 17; Temp 97.7(O); Pulse Ox 99% on R/A; Weight 92.08 kg rb1 (R); Height 5 ft. 2 in. (157.48 cm) (R); Pain 7/10; 13:00 BP 102 / 58; Pulse 108; Resp 20; Temp 97.9(O); Pulse Ox 100% on R/A; rb1 14:00 BP 123 / 64; Pulse 103; Resp 19; Temp 97.8(O); Pulse Ox 99% on 2 lpm NC; rb1 15:03 BP 141 / 62 RA Supine; Pulse 112; Resp 17; Pulse Ox 99% on 2 lpm NC; ss 15:14 Temp 97.9(O); rb1 16:00 BP 141 / 67; Pulse 115; Resp 12; Temp 97.1(TE); Pulse Ox 98% on 2 lpm NC; rb1 17:00 BP 134 / 70; Pulse 115; Resp 15; Temp 97.4(O); Pulse Ox 100% ; Pain 5/10; rb1 18:00 BP 152 / 83; Pulse 111; Resp 14; Temp 97.6(O); Pulse Ox 99% on R/A; Pain 5/10; rb1 19:30 BP 131 / 56; Pulse 116; Resp 16 S; Temp 97.9(O); Pulse Ox 100% on 2 lpm NC; cc3 20:00 BP 133 / 80; Pulse 129; Resp 17 S; Pulse Ox 97% on 2 lpm NC; cc3 20:30 BP 109 / 94; Pulse 119; Resp 18 S; Pulse Ox 98% on 2 lpm NC; cc3 21:00 BP 133 / 63; Pulse 126; Resp 16 S; Pulse Ox 96% on 2 lpm NC; cc3 12:10 Body Mass Index 37.13 (92.08 kg, 157.48 cm) rb1 ED Course: 12:10 Patient has correct armband on for positive identification. Placed in gown. Bed in low rb1 position. Call light in reach. Side rails up X2. residential monitor on. Pulse ox on. NIBP on. Given a sheet per pt. request. 12:15 Arm band placed on right wrist. rb1 12:25 Patient arrived in ED. rb1 12:26 Ignacia Yu, RN is Primary Nurse. rb1 12:29 Lionel Tilley MD is Attending Physician. ps1 12:31 Triage completed. rb1 13:08 Radiology exam delayed due to lab results not completed at this time. (BUN/Creatinine). mw3 13:38 EKG done, by ED staff, reviewed by Lionel Tilley MD. dh3 13:43 Initial lab(s) drawn, by me, sent to lab. Missed attempt(s): 22 gauge in right dh3 antecubital area. Bleeding controlled, band aid applied, catheter tip intact. 14:21 Inserted saline lock: 22 gauge in left antecubital area, using aseptic technique. Blood la1 collected. 14:22 Note: ok to do exam w/o pts labs, per amelia see rn \T\ dr tilley. mw3 14:38 CT completed. Patient tolerated procedure well. Patient moved back from CT. bq 14:40 CT Chest For PE Angio In Process Unspecified. EDMS 15:04 Repeat lab(s) drawn. by me, sent to lab. dh3 15:46 Notified ED physician of a critical lab result(s). BGL 445. la1 16:22 Cordell Herrera MD is Hospitalizing Provider. ps1 19:00 Report given to RYLEE Dang. rb1 19:23 Attending Physician role handed off by Lionel Tilley MD rn 19:23 Adam Gayle MD is Attending Physician. rn 20:45 No provider procedures requiring assistance completed. Patient transferred, IV remains cc3 in place. Administered Medications: 13:58 Drug: Insulin Regular Human 15 units {Co-Signature: aj1 (Tracy Horvath RN).} Route: rb1 Sub-Q; Site: abdomen; 15:07 Follow up: Response: Blood sugar is elevated ss 16:15 Drug: Insulin Regular Human 15 units {Co-Signature: aj1 (Tracy Horvath RN).} Route: rb1 Sub-Q; Site: abdomen; 16:20 Drug: Reglan 10 mg Route: IVP; Site: left antecubital; rb1 16:40 Follow up: Response: No adverse reaction; Nausea is decreased rb1 16:30 CANCELLED (Duplicate Order): Rocephin - (cefTRIAXone) 1 grams IVPB once over 30 mins; rb1 (mix in 50 mL NS) 16:40 Drug: Rocephin 1 grams Route: IV; Rate: calculated rate; Site: left antecubital; rb1 17:10 Follow up: Response: No adverse reaction; IV Status: Completed infusion rb1 17:17 Drug: AZITHromycin 500 mg Route: IVPB; Infused Over: 1 hrs; Site: left antecubital; rb1 17:26 Drug: Insulin Regular Human 20 units {Co-Signature: aj1 (Tracy Horvath RN).} Route: rb1 Sub-Q; Site: abdomen; 19:00 Follow up: Response: No adverse reaction cc3 19:25 Drug: ProTONIX 80 mg Route: IVP; Site: left antecubital; cc3 19:30 Follow up: Response: No adverse reaction cc3 19:30 Drug: ProTONIX 8 mg/hr Route: IV; Rate: 25 ml/hr; Site: left antecubital; cc3 20:30 Follow up: Response: No adverse reaction; IV Status: Infusion continued upon transfer; cc3 IV Intake: 25ml 19:40 Drug: NS 0.9% 500 ml Route: IV; Rate: bolus; Site: left antecubital; cc3 20:40 Follow up: Response: No adverse reaction; IV Status: Infusion continued upon transfer; cc3 IV Intake: 300ml Point of Care Testing: Blood Glucose: 13:43 Blood Glucose: High (>450 mg/dL); rb1 15:01 Blood Glucose: 483 mg/dL; ss 17:10 Blood Glucose: 434 mg/dL; rb1 19:15 Blood Glucose: 444 mg/dL; oe 13:43 Dr. Tilley notified. No additional labs ordered at this time. Received order for rb1 Regular insulin 15 units Sub Q x 1. 17:10 Dr. Tilley notified. Received order for Regular insulin 20 units Sub Q x 1 rb1 Ranges: Intake: 20:30 IV: 25ml; Total: 25ml. cc3 20:40 IV: 300ml; Total: 325ml. cc3 13:00 guiac test was negative. rb1 17:45 Soft brown stool, large BM rb1 18:30 Diarhea stool that is dark black and a jelly consistency. Dr. Tilley notified. rb1 Output: 13:00 Stool: 1 (Formed Stool) ; Total: 0ml. rb1 17:45 Stool: 1; Total: 0ml. rb1 18:30 Stool: 1 (Loose Stool) ; Total: 0ml. rb1 13:00 guiac test was negative. rb1 17:45 Soft brown stool, large BM rb1 18:30 Diarhea stool that is dark black and a jelly consistency. Dr. Tilley notified. rb1 Outcome: 16:23 Decision to Hospitalize by Provider. ps1 19:29 ER care complete, transfer ordered by MD. rn 20:45 Transferred by ground EMS to [facility], Transfer form completed. cc3 20:45 Condition: stable 20:45 Instructed on the need for transfer, Demonstrated understanding of instructions. 21:21 Patient left the ED. cc3 Signatures: Dispatcher [employer] EDMS Polly Cisse Roman, MD MD rn Smirch, Shelby RN RN ss Oc Bowden RN RN la1 Ignacia Yu RN RN rb1 Alexander Mcneill Deanna 3 Lionel Tilley MD MD ps1 Mami Stoll 3 Laurence Dutton 3 Tracy Horvath RN aj1 Corrections: (The following items were deleted from the chart) 15:18 15:16 Initial Sepsis Screen: Does the patient meet any 2 criteria? rb1 rb1 22:12 21:00 BP 133 / 63; Pulse 126bpm; Resp 16bpm; Spontaneous; Pulse Ox 97% 2 lpm Nasal cc3 Cannula; cc3 23:03 19:15 Reassessment: Patient appears in no apparent distress at this time. Patient cc3 and/or family updated on plan of care and expected duration. Pain level reassessed. Patient is alert, oriented x 3, equal unlabored respirations, skin warm/dry/pink. Received this male patient from morning shift RYLEE Beth as a case of melena, hemoptysis and dyspnea unspecified, for transfer awaiting transfer form. Dr. Gayle and Dr. Tilley at bedside explaining the plan of care to the patient and the patient's . With IV cannula gauge 22 at the left ACV saline locked. Patient noted to have bilateral BKA, on oxygen therapy by nasal cannula at 2LPM saturating cc3
[2018-12-01] MEDS ORDERED: LEVALBUTEROL 1.25 MG/3 ML NEB ONE (16:46)
[2018-12-01] MEDS ORDERED: CEFTRIAXONE/SWI 1gm 1 GM/10 ML SYR ONE (16:47)
[2018-12-01] MEDS ORDERED: AZITHROMYCIN IV 500 MG in NA CHLORIDE 0.9% 250 ML IVPB ONE (17:00)
[2018-12-01] MEDS ORDERED: PANTOPRAZOLE 40 MG INJ ONE (19:37)
[2018-12-01] MEDS ORDERED: NA CHLORIDE 0.9% 250 ML ONE (19:37)
[2018-12-01] MEDS ORDERED: NA CHLORIDE 0.9% 500 ML ONE (19:38)
[2018-12-01 21:45] VITALS: TEMP 97.9
[2018-12-01 21:46] VITALS: BP 133/80; O2SAT 97
--- NOTE | 2018-12-02 06:08 | EKG ---
Test Date: 2018-12-01 Test Time: 13:34:17 Drain Tiler: [place] MEASUREMENT RESULTS: Intervals: Rate: 120 NM: 164 QRSD: 84 QT: 334 QTc: 472 [place]: P: 253 NM: 164 QRS: 76 T: 65 INTERPRETIVE STATEMENTS: Sinus tachycardia Abnormal ECG Compared to ECG 09/22/2018 17:09:27 Sinus rhythm no longer present Myocardial infarct finding no longer present Electronically Signed On 12-02-18 06:08:02 CDT by Bertram Welch
== END 2018-12-01 21:21 | disposition short-term general hospital (02) ==
LOC: ER 12:10 → ERHOLD 18:49 → UNDOADMIN 18:49 → UNDODISIN 21:21
DX: K92.1 Melena (principal); R06.00 Dyspnea, unspecified; I10 Essential (primary) hypertension; E78.5 Hyperlipidemia, unspecified; E11.9 Type 2 diabetes mellitus without complications; I48.91 Unspecified atrial fibrillation; J44.9 Chronic obstructive pulmonary disease, unspecified; F32.9 Major depressive disorder, single episode, unspecified; Z79.4 Long term (current) use of insulin; Z79.01 Long term (current) use of anticoagulants; Z79.82 Long term (current) use of aspirin; Z95.818 Presence of other cardiac implants and grafts
CPT/HCPCS: 96365; 96367; 93005; 85025; 36415; 85384; 83735; 82947; 85610; 82962 ×4; 85730; 84484; 80053; 83880; 71275; 96375; 96372; 99285; Q9967; J2765; C9113; J0456; J0696; J2405

== ENCOUNTER 2018-12-22 22:06 | Emergency (ER) | payer OTHER ==
--- OUTSIDE RECORDS SUMMARY | 2018-12-22 22:09 | XMS REPORT | Clinical Summary ---
:1945 Author Organization [facility] [employer] Address [address] [place] [address] Care Team Providers Name Role Phone Asked, [...] Not on file Results Not on fileafter 12/21/2017 Advance Directives Patient has advance care planning documents, and code status on file. For more information, please contact:Ari Hernandez[address] [place] [address] Code Status Date Activated Date Inactivated Comments Full Code 05/24/2016 9:28 PM 05/26/2016 4:41 PM Code Status decision reached by: Patient
--- OUTSIDE RECORDS SUMMARY | 2018-12-22 22:11 | XMS REPORT | Clinical Summary ---
:1945 Author Organization [facility] Address [address] [place] [address] Care Team Providers Name Role Phone Pcp, No Primary Care Provider Unavailable Allergies No Known Allergies Medications Medication Sig Dispensed Refills Start End Status Date Date albuterol Take 2.5 mg by 0 Active (PROVENTIL) 2.5 mg nebulization every /3 mL (0.083 %) 4 (four) hours as nebulizer solution needed for Wheezing or Shortness of Breath. apixaban (ELIQUIS) 5 Take 5 mg by mouth 0 Active mg Tab tablet 2 (two) times daily. aspirin 81 MG Take 81 mg by 0 Active chewable tablet mouth daily. atorvastatin Take 40 mg by 0 Active (LIPITOR) 80 MG mouth daily. tablet budesonide (ENTOCORT Take 9 mg by mouth 0 Active EC) 3 mg 24 hr every morning. capsule budesonide-formotero Inhale 2 puffs by 0 Active l (SYMBICORT) 80-4.5 mouth via inhaler mcg/actuation 2 (two) times inhaler daily. docusate sodium Take 100 mg by 0 Active (COLACE) 100 MG mouth 2 (two) capsule times daily. ferrous gluconate Take 324 mg by 0 Active (FERGON) 324 MG mouth 2 (two) tablet times daily. finasteride Take 5 mg by mouth 0 Active (PROSCAR) 5 mg daily. tablet furosemide (LASIX) Take 40 mg by 0 Active 40 MG mouth daily. tabletIndications: in the morning furosemide (LASIX) Take 80 mg by 0 Active 40 MG mouth daily. tabletIndications: in the afternoon gabapentin Take 100 mg by 0 Active (NEURONTIN) 100 MG mouth 3 (three) capsule times daily. insulin aspart U-100 Inject 35 Units 0 Active (NOVOLOG) 100 subcutaneously 3 unit/mL injection (three) times daily before meals. insulin detemir Inject 70 Units 0 Active U-100 (LEVEMIR) 100 subcutaneously unit/mL daily. injectionIndications : type 1 diabetes mellitus, type 2 diabetes mellitus, in the morning insulin detemir Inject 45 Units 0 Active U-100 (LEVEMIR) 100 subcutaneously unit/mL nightly. injectionIndications : type 1 diabetes mellitus, type 2 diabetes mellitus, in PM ipratropium Take 500 mcg by 0 Active (ATROVENT) 0.02 % nebulization 4 nebulizer solution (four) times daily. losartan (COZAAR) Take 100 mg by 0 Active 100 MG mouth daily. tabletIndications: chronic heart failure magnesium oxide 420 Take 420 mg by 0 Active mg Tab mouth daily. metoprolol Take 50 mg by 0 Active (LOPRESSOR) 50 MG mouth daily. tablet potassium chloride Take 20 mEq by 0 Active (KLOR-CON) 10 MEQ CR mouth daily. tablet sotalol AF (BETAPACE Take 120 mg by 0 Active AF) 120 MG mouth 2 (two) tabletIndications: times daily. Life-Threatening Ventricular Tachycardia, Paroxysmal Supraventricular Tachycardia, Prevention of Recurrent Atrial Fibrillation pantoprazole Take 1 tablet (40 60 tablet 1 Active (PROTONIX) 40 MG mg total) by mouth 9 tablet 2 (two) times daily. sertraline (ZOLOFT) Take 1 tablet (100 30 tablet 0 Active 100 MG tablet mg total) by mouth 9 020 daily. pantoprazole Take 40 mg by 0 Discontinued (PROTONIX) 40 MG mouth daily. 019 tablet Active Problems Problem Noted Date Severe sepsis (CODE) 12/02/2018 GIB (gastrointestinal bleeding) 12/01/2018 Encounters Date Type Specialty Care Team Description 12/03/2018 Anesthesia Event Gastroenterology Gokul Laura MD 12/03/2018 Surgery Gastroenterology Jose Kwon UPPER ENDOSCOPY MD Dieudonne 12/03/2018 Travel 12/02/2018 Orders Only General Internal Medicine 12/01/2018 [facility] Cardiology Kellie Matson Gastrointestinal hemorrhage , unspecified gastrointestinal hemorrhage type (Primary Dx); - Encounter MD Tessa Severe sepsis without septic shock (CODE) ([facility]); 12/10/2018 Lillian Campbell Anemia, blood loss; MD Samson BALNK (acute kidney injury) ([facility]); Emily, Acute urinary retention; Dieudonne Angel, Acute respiratory failure with hypoxia ([facility]); Crohn's disease of colon with complication (HCC); Pramod, Chronic obstructive pulmonary disease, unspecified COPD type ( HCC); Rubens 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) ([facility]); MD Al Atrial fibrillation with rapid ventricular response ([facility]); Noa Chawla Coronary artery disease involving [place] coronary artery of [place] heart without angina pectoris; MD Gretchen History of PTCA; Earline Coats Anemia associated with acute blood loss; MD Martha Atrial fibrillation, rapid ([facility]); Pulmonary emphysema, unspecified emphysema type (HCC); Peptic ulcer disease with hemorrhage; Paroxysmal atrial fibrillation (HCC); Severe sepsis (HCC); Acute respiratory failure with hypoxia and hypercarbia (HCC); Chronic kidney disease, stage 3 (HCC); Diabetes mellitus type 2 in obese ([facility]); MARINO and COPD overlap syndrome ([facility]); COPD with acute exacerbation (HCC); Severe sepsis (CODE) ([facility]) after 12/21/2017 Social History Tobacco Use Types Packs/Day Years Used Date Former Smoker Quit: 11/28/2002 Smokeless Tobacco: Never Used Alcohol Use Drinks/Week oz/Week Comments No Alcohol Habits Answer Date Recorded How often do you have a drink containing alcohol? Never 12/02/2018 How many drinks containing alcohol do you have on a typical Not asked day when you are drinking? How often do you have six or more drinks on one occasion? Not asked Sex Assigned at Date Recorded Not on file Job Start Date Occupation Industry Not on file Not on file Not on file Travel History Travel Start Travel End No recent travel history available. Last Filed Vital Signs Vital Sign Reading Time Taken Blood Pressure 133/63 12/10/2018 3:26 PM CDT Pulse 67 12/10/2018 3:26 PM CDT Temperature 36.3 C (97.3 F) 12/10/2018 3:26 PM CDT Respiratory Rate 20 12/10/2018 3:26 PM CDT Oxygen Saturation 96% 12/10/2018 3:26 PM CDT Inhaled Oxygen Concentration 60% 12/06/2018 2:00 AM CDT Weight 95.1 kg (209 lb 10.5 oz) 12/05/2018 5:00 PM CDT Height 182.9 cm (6') 12/04/2018 4:41 PM CDT Body Mass Index 28.43 12/05/2018 5:00 PM CDT Plan of Treatment Not on file Procedures Procedure Name Priority Date/Time Associated Comments Diagnosis RHYTHM STRIP - SCAN 12/12/2018 4:11 PM CDT REPORT OF PROCEDURE - 12/12/2018 7:20 ENDOSCOPY SCAN AM CDT RHYTHM STRIP - SCAN 12/12/2018 7:20 AM CDT PERIPHERAL VASCULAR 12/10/2018 9:12 REPORT - SCAN PM CDT TRANSFUSION SERVICE 12/10/2018 5:50 REPORT - SCAN PM CDT POCT-GLUCOSE METER Routine 12/10/2018 5:12 Results for this PM CDT procedure are in the results section. POCT-GLUCOSE METER Routine 12/10/2018 1:31 Results for this PM CDT procedure are in the results section. VENOUS DOPPLER ARM, STAT 12/10/2018 12:24 Results for this RIGHT PM CDT procedure are in the results section. POCT-GLUCOSE METER Routine 12/10/2018 7:39 Results for this AM CDT procedure are in the results section. (CELLAVISION MANUAL Routine 12/10/2018 7:09 Results for this DIFF) AM CDT procedure are in the results section. CBC W/PLT COUNT & AUTO Routine 12/10/2018 7:09 Results for this DIFFERENTIAL AM CDT procedure are in the results section. MAGNESIUM Routine 12/10/2018 7:09 Results for this AM CDT procedure are in the results section. CBC W/PLT COUNT & AUTO Routine 12/10/2018 7:09 Results for this DIFFERENTIAL AM CDT procedure are in the results section. BASIC METABOLIC PANEL Routine 12/10/2018 7:09 Results for this (7) AM CDT procedure are in the results section. PREPARE LEUKO-REDUCED Routine 12/09/2018 11:54 Results for this RBC PM CDT procedure are in the results section. POCT-GLUCOSE METER Routine 12/09/2018 9:40 Results for this PM CDT procedure are in the results section. TRANSFUSION SERVICE 12/09/2018 5:50 REPORT - SCAN PM CDT POCT-GLUCOSE METER Routine 12/09/2018 5:18 Results for this PM CDT procedure are in the results section. POCT-GLUCOSE METER Routine 12/09/2018 2:41 Results for this PM CDT procedure are in the results section. POCT-GLUCOSE METER Routine 12/09/2018 12:01 Results for this PM CDT procedure are in the results section. POCT-GLUCOSE METER Routine 12/09/2018 8:13 Results for this AM CDT procedure are in the results section. (CELLAVISION MANUAL Routine 12/09/2018 3:19 Results for this DIFF) AM CDT procedure are in the results section. CBC W/PLT COUNT & AUTO Routine 12/09/2018 3:19 Results for this DIFFERENTIAL AM CDT procedure are in the results section. VANCOMYCIN LEVEL, Timed 12/09/2018 3:19 Results for this TROUGH AM CDT procedure are in the results section. MAGNESIUM Routine 12/09/2018 3:19 Results for this AM CDT procedure are in the results section. CBC W/PLT COUNT & AUTO Routine 12/09/2018 3:19 Results for this DIFFERENTIAL AM CDT procedure are in the results section. BASIC METABOLIC PANEL Routine 12/09/2018 3:19 Results for this (7) AM CDT procedure are in the results section. POCT-GLUCOSE METER Routine 12/08/2018 10:10 Results for this PM CDT procedure are in the results section. TRANSFUSE LEUKO-REDUCED Routine 12/08/2018 9:31 RED BLOOD CELLS PM CDT POCT-GLUCOSE METER Routine 12/08/2018 4:19 Results for this PM CDT procedure are in the results section. POCT-GLUCOSE METER Routine 12/08/2018 11:47 Results for this AM CDT procedure are in the results section. PROCALCITONIN Routine 12/08/2018 8:40 Results for this AM CDT procedure are in the results section. TYPE AND SCREEN, Routine 12/08/2018 8:22 Results for this AUTOMATED AM CDT procedure are in the results section. POCT-GLUCOSE METER Routine 12/08/2018 8:02 Results for this AM CDT procedure are in the results section. CBC W/PLT COUNT & AUTO Routine 12/08/2018 4:10 Results for this DIFFERENTIAL AM CDT procedure are in the results section. MAGNESIUM Routine 12/08/2018 4:10 Results for this AM CDT procedure are in the results section. BASIC METABOLIC PANEL Routine 12/08/2018 4:10 Results for this (7) AM CDT procedure are in the results section. CBC W/PLT COUNT & AUTO Routine 12/08/2018 4:10 Results for this DIFFERENTIAL AM CDT procedure are in the results section. POCT-GLUCOSE METER Routine 12/07/2018 9:57 Results for this PM CDT procedure are in the results section. POCT-GLUCOSE METER Routine 12/07/2018 5:37 Results for this PM CDT procedure are in the results section. POCT-GLUCOSE METER Routine 12/07/2018 12:18 Results for this PM CDT procedure are in the results section. US GUIDE, VASCULAR Routine 12/07/2018 12:09 Severe sepsis Results for this ACCESS PM CDT (CODE) (HCC) procedure are in the results section. INSERT NON-TUNNEL CV Routine 12/07/2018 12:09 Severe sepsis Results for this CATH PM CDT (CODE) (HCC) procedure are in the results section. POCT-GLUCOSE METER Routine 12/07/2018 6:31 Results for this AM CDT procedure are in the results section. CBC W/PLT COUNT & AUTO Routine 12/07/2018 2:27 Results for this DIFFERENTIAL AM CDT procedure are in the results section. MAGNESIUM Routine 12/07/2018 2:27 Results for this AM CDT procedure are in the results section. BASIC METABOLIC PANEL Routine 12/07/2018 2:27 Results for this (7) AM CDT procedure are in the results section. CBC W/PLT COUNT & AUTO Routine 12/07/2018 2:27 Results for this DIFFERENTIAL AM CDT procedure are in the results section. POCT-GLUCOSE METER Routine 12/07/2018 12:58 Results for this AM CDT procedure are in the results section. POCT-GLUCOSE METER Routine 12/06/2018 9:27 Results for this PM CDT procedure are in the results section. ECHOCARDIOGRAM REPORT - 12/06/2018 9:20 SCAN PM CDT XR CHEST PA OR AP 1 STAT 12/06/2018 6:37 Results for this VIEW IN DEPT. PM CDT procedure are in the results section. POCT-GLUCOSE METER Routine 12/06/2018 5:53 Results for this PM CDT procedure are in the results section. (CELLAVISION MANUAL STAT 12/06/2018 4:56 Results for this DIFF) PM CDT procedure are in the results section. CBC W/PLT COUNT & AUTO STAT 12/06/2018 4:56 Results for this DIFFERENTIAL PM CDT procedure are in the results section. PROCALCITONIN STAT 12/06/2018 4:56 Results for this PM CDT procedure are in the results section. LACTIC ACID, VENOUS STAT 12/06/2018 4:56 Results for this PM CDT procedure are in the results section. TROPONIN I STAT 12/06/2018 4:56 Results for this PM CDT procedure are in the results section. PROTHROMBIN TIME/INR STAT 12/06/2018 4:56 Results for this PM CDT procedure are in the results section. COMPREHENSIVE METABOLIC STAT 12/06/2018 4:56 Results for this PANEL PM CDT procedure are in the results section. CBC W/PLT COUNT & AUTO STAT 12/06/2018 4:56 Results for this DIFFERENTIAL PM CDT procedure are in the results section. CT ABDOMEN/PELVIS STAT 12/06/2018 3:12 Results for this WITHOUT IV CONTRAST PM CDT procedure are in the results section. POCT-GLUCOSE METER Routine 12/06/2018 12:39 Results for this PM CDT procedure are in the results section. HEMOGLOBIN AND Routine 12/05/2018 10:37 Results for this HEMATOCRIT PM CDT procedure are in the results section. POCT-GLUCOSE METER Routine 12/05/2018 10:36 Results for this PM CDT procedure are in the results section. LACTIC ACID, ARTERIAL Routine 12/05/2018 9:54 Results for this PM CDT procedure are in the results section. BLOOD CULTURE Routine 12/05/2018 9:53 Results for this PM CDT procedure are in the results section. BLOOD GAS, ARTERIAL Routine 12/05/2018 9:51 Results for this PM CDT procedure are in the results section. BLOOD CULTURE Routine 12/05/2018 9:37 Results for this PM CDT procedure are in the results section. POCT-GLUCOSE METER Routine 12/05/2018 9:23 Results for this PM CDT procedure are in the results section. URINALYSIS W/ REFLEX Routine 12/05/2018 9:13 Results for this URINE CULTURE PM CDT procedure are in the results section. POCT-GLUCOSE METER Routine 12/05/2018 8:44 Results for this PM CDT procedure are in the results section. POCT-GLUCOSE METER Routine 12/05/2018 8:23 Results for this PM CDT procedure are in the results section. POCT-GLUCOSE METER Routine 12/05/2018 8:08 Results for this PM CDT procedure are in the results section. LACTIC ACID, ARTERIAL STAT 12/05/2018 6:51 Results for this PM CDT procedure are in the results section. POCT-GLUCOSE METER Routine 12/05/2018 6:35 Results for this PM CDT procedure are in the results section. 2D ECHO W/ DOPPLER STAT 12/05/2018 6:18 Results for this (CW/PW/COLOR) PM CDT procedure are in the results section. POCT-GLUCOSE METER Routine 12/05/2018 5:27 Results for this PM CDT procedure are in the results section. ECG 12-LEAD Routine 12/05/2018 5:24 PM CDT Procedure Note - Interface, External Ris In - 12/05/2018 5:31 PM CDT Ventricular Rate 133 BPM Atrial Rate 133 BPM P-R Interval 162 ms QRS Duration 94 ms Q-T Interval 322 ms QTC Calculation(Bazett) 479 ms R [place] 66 degrees T [place] 56 degrees Sinus tachycardia with Premature atrial complexes Nonspecific ST and T wave abnormality Abnormal ECG ECG 12-LEAD STAT 12/05/2018 5:24 PM CDT ECG 12-LEAD Routine 12/05/2018 5:24 PM CDT ECG 12-LEAD Routine 12/05/2018 5:24 PM CDT Procedure Note - Interface, External Ris In - 12/05/2018 5:31 PM CDT Ventricular Rate 132 BPM Atrial Rate 250 BPM QRS Duration 96 ms Q-T Interval 348 ms QTC Calculation(Bazett) 515 ms P [place] -68 degrees R [place] 63 degrees T [place] 50 degrees Atrial flutter with variable A-V block ST elevation consider lateral injury or acute infarct ACUTE NH / STEMI Abnormal ECG B-TYPE NATRIURETIC FACTOR STAT 12/05/2018 5:06 PM CDT Results for this (BNP) procedure are in the results section. XR CHEST 1 VIEW STAT 12/05/2018 5:00 PM CDT Results for this PORTABLE/BEDSIDE procedure are in the results section. (CELLAVISION MANUAL DIFF) STAT 12/05/2018 4:53 PM CDT CBC W/PLT COUNT & AUTO STAT 12/05/2018 4:53 PM CDT Results for this DIFFERENTIAL procedure are in the results section. TROPONIN I STAT 12/05/2018 4:53 PM CDT CREATINE KINASE (CK) STAT 12/05/2018 4:53 PM CDT PHOSPHORUS STAT 12/05/2018 4:53 PM CDT MAGNESIUM STAT 12/05/2018 4:53 PM CDT BASIC METABOLIC PANEL (7) STAT 12/05/2018 4:53 PM CDT CBC W/PLT COUNT & AUTO STAT 12/05/2018 4:53 PM CDT Results for this DIFFERENTIAL procedure are in the results section. BLOOD GAS, ARTERIAL STAT 12/05/2018 4:52 PM CDT POCT-GLUCOSE METER Routine 12/05/2018 11:31 AM CDT CBC W/PLT COUNT & AUTO Routine 12/05/2018 5:09 AM CDT Results for this DIFFERENTIAL procedure are in the results section. FERRITIN Routine 12/05/2018 5:09 AM CDT MAGNESIUM Routine 12/05/2018 5:09 AM CDT BASIC METABOLIC PANEL (7) Routine 12/05/2018 5:09 AM CDT CBC W/PLT COUNT & AUTO Routine 12/05/2018 5:09 AM CDT Results for this DIFFERENTIAL procedure are in the results section. POCT-GLUCOSE METER Routine 12/04/2018 9:16 PM CDT TRANSFUSION SERVICE REPORT 12/04/2018 6:15 PM CDT - SCAN POCT-GLUCOSE METER Routine 12/04/2018 5:25 PM CDT ECG 12-LEAD Routine 12/04/2018 2:47 PM CDT ECG 12-LEAD Routine 12/04/2018 2:47 PM CDT Procedure Note - Interface, External Ris In - 12/04/2018 9:32 PM CDT Ventricular Rate 73 BPM Atrial Rate 73 BPM P-R Interval 168 ms QRS Duration 98 ms Q-T Interval 444 ms QTC Calculation(Bazett) 489 ms P [place] 270 degrees R [place] 58 degrees T [place] 64 degrees Unusual P axis, possible ectopic atrial rhythm Prolonged QT Abnormal ECG When compared with ECG of 04-DEC-2018 14:46, Aberrant conduction is no longer Present ECG 12-LEAD Routine 12/04/2018 2:46 PM CDT Procedure Note - Interface, External Ris In - 12/04/2018 9:32 PM CDT Ventricular Rate 74 BPM Atrial Rate 74 BPM P-R Interval 160 ms QRS Duration 98 ms Q-T Interval 448 ms QTC Calculation(Bazett) 497 ms P [place] -71 degrees R [place] 56 degrees T [place] 60 degrees Unusual P axis, possible ectopic atrial rhythm with Premature atrial complexes with Aberrant conduction Prolonged QT Abnormal ECG When compared with ECG of 02-DEC-2018 07:43, Aberrant conduction is now Present Vent. rate has decreased BY 45 BPM ECG 12-LEAD Routine 12/04/2018 2:46 Results for this PM CDT procedure are in the results section. POCT-GLUCOSE METER Routine 12/04/2018 11:24 Results for this AM CDT procedure are in the results section. POCT-GLUCOSE METER Routine 12/04/2018 7:35 Results for this AM CDT procedure are in the results section. (CELLAVISION MANUAL Routine 12/04/2018 3:56 Results for this DIFF) AM CDT procedure are in the results section. CBC W/PLT COUNT & Routine 12/04/2018 3:56 Results for this AUTO DIFFERENTIAL AM CDT procedure are in the results section. CBC W/PLT COUNT & Routine 12/04/2018 3:56 Results for this AUTO DIFFERENTIAL AM CDT procedure are in the results section. MAGNESIUM Routine 12/04/2018 3:56 Results for this AM CDT procedure are in the results section. BASIC METABOLIC PANEL Routine 12/04/2018 3:56 Results for this (7) AM CDT procedure are in the results section. POCT-GLUCOSE METER Routine 12/04/2018 12:16 Results for this AM CDT procedure are in the results section. PREPARE LEUKO-REDUCED STAT 12/03/2018 11:54 Results for this RBC PM CDT procedure are in the results section. PREPARE LEUKO-REDUCED Routine 12/03/2018 11:54 Results for this RBC PM CDT procedure are in the results section. POCT-GLUCOSE METER Routine 12/03/2018 10:21 Results for this PM CDT procedure are in the results section. TRANSFUSION SERVICE 12/03/2018 6:00 REPORT - SCAN PM CDT POCT-GLUCOSE METER Routine 12/03/2018 5:36 Results for this PM CDT procedure are in the results section. POCT-GLUCOSE METER Routine 12/03/2018 11:14 Results for this AM CDT procedure are in the results section. CT ABDOMEN/PELVIS Routine 12/03/2018 11:10 Results for this WITHOUT IV CONTRAST AM CDT procedure are in the results section. HEMOGLOBIN AND Routine 12/03/2018 9:50 Results for this HEMATOCRIT AM CDT procedure are in the results section. REPORT OF PROCEDURE - 12/03/2018 8:43 ENDOSCOPY URL AM CDT UPPER ENDOSCOPY 12/03/2018 8:00 Gastrointestinal AM CDT hemorrhage, unspecified gastrointestinal hemorrhage type SPUTUM CULTURE + GRAM Routine 12/03/2018 7:01 Results for this STAIN AM CDT procedure are in the results section. POCT-GLUCOSE METER Routine 12/03/2018 6:23 Results for this AM CDT procedure are in the results section. CBC (HEMOGRAM ONLY) Routine 12/03/2018 3:56 Results for this AM CDT procedure are in the results section. VANCOMYCIN LEVEL, Routine 12/03/2018 3:56 Results for this RANDOM AM CDT procedure are in the results section. VITAMIN B12 AND Routine 12/03/2018 3:56 Results for this FOLATE AM CDT procedure are in the results section. IRON, TIBC, % SAT. Routine 12/03/2018 3:56 Results for this (WITHOUT FERRITIN) AM CDT procedure are in the results section. LACTIC ACID, VENOUS Routine 12/03/2018 3:56 Results for this AM CDT procedure are in the results section. MAGNESIUM Routine 12/03/2018 3:56 Results for this AM CDT procedure are in the results section. BASIC METABOLIC PANEL Routine 12/03/2018 3:56 Results for this (7) AM CDT procedure are in the results section. POCT-GLUCOSE METER Routine 12/02/2018 11:23 Results for this PM CDT procedure are in the results section. HEMOGLOBIN AND Routine 12/02/2018 11:19 Results for this HEMATOCRIT PM CDT procedure are in the results section. ECHOCARDIOGRAM REPORT 12/02/2018 9:21 - SCAN PM CDT TRANSFUSE STAT 12/02/2018 7:08 LEUKO-REDUCED RED PM CDT BLOOD CELLS US PELVIS LIMITED STAT 12/02/2018 6:33 Results for this PM CDT procedure are in the results section. US ABDOMEN COMPLETE STAT 12/02/2018 6:33 Results for this PM CDT procedure are in the results section. POCT-GLUCOSE METER Routine 12/02/2018 5:59 Results for this PM CDT procedure are in the results section. BASIC METABOLIC PANEL STAT 12/02/2018 2:30 Results for this (7) PM CDT procedure are in the results section. CBC (HEMOGRAM ONLY) Routine 12/02/2018 2:30 Results for this PM CDT procedure are in the results section. LACTIC ACID, VENOUS STAT 12/02/2018 2:30 Results for this PM CDT procedure are in the results section. POCT-GLUCOSE METER Routine 12/02/2018 1:47 Results for this PM CDT procedure are in the results section. 2D ECHO W/ DOPPLER STAT 12/02/2018 1:11 Results for this (CW/PW/COLOR) PM CDT procedure are in the results section. LACTIC ACID, VENOUS STAT 12/02/2018 12:21 Results for this PM CDT procedure are in the results section. OSMOLALITY, URINE Routine 12/02/2018 11:57 Results for this AM CDT procedure are in the results section. CREATININE, RANDOM Routine 12/02/2018 11:57 Results for this URINE AM CDT procedure are in the results section. SODIUM, RANDOM URINE Routine 12/02/2018 11:57 Results for this AM CDT procedure are in the results section. LEGIONELLA URINE Routine 12/02/2018 11:56 Results for this ANTIGEN AM CDT procedure are in the results section. STREP PNEUMONIAE Routine 12/02/2018 11:55 Results for this ANTIGEN AM CDT procedure are in the results section. RAPID INFLUENZA A&B Routine 12/02/2018 11:55 Results for this SCREEN AM CDT procedure are in the results section. RESPIRATORY PANEL STAT 12/02/2018 11:55 Results for this [facility] AM CDT procedure are in the results section. SPUTUM CULTURE + GRAM Routine 12/02/2018 11:55 Results for this STAIN AM CDT procedure are in the results section. POCT-LACTIC ACID, Routine 12/02/2018 9:27 Results for this VENOUS AM CDT procedure are in the results section. TRANSFUSE Routine 12/02/2018 9:23 LEUKO-REDUCED RED AM CDT BLOOD CELLS POCT-HEMOGLOBIN Routine 12/02/2018 9:23 Results for this AM CDT procedure are in the results section. POCT-HEMATOCRIT Routine 12/02/2018 9:23 Results for this AM CDT procedure are in the results section. POCT-CALCIUM IONIZED Routine 12/02/2018 9:23 Results for this AM CDT procedure are in the results section. POCT-GLUCOSE Routine 12/02/2018 9:23 Results for this AM CDT procedure are in the results section. POCT-POTASSIUM Routine 12/02/2018 9:23 Results for this AM CDT procedure are in the results section. POCT-SODIUM Routine 12/02/2018 9:23 Results for this AM CDT procedure are in the results section. POCT-BLOOD GASES, Routine 12/02/2018 9:23 Results for this ARTERIAL AM CDT procedure are in the results section. B-TYPE NATRIURETIC STAT 12/02/2018 9:23 Results for this FACTOR (BNP) AM CDT procedure are in the results section. BLOOD CULTURE STAT 12/02/2018 9:23 Results for this AM CDT procedure are in the results section. CBC (HEMOGRAM ONLY) Routine 12/02/2018 9:13 Results for this AM CDT procedure are in the results section. BLOOD CULTURE STAT 12/02/2018 9:10 Results for this AM CDT procedure are in the results section. APTT STAT 12/02/2018 9:08 Results for this AM CDT procedure are in the results section. PROTHROMBIN TIME/INR STAT 12/02/2018 9:08 Results for this AM CDT procedure are in the results section. PROCALCITONIN STAT 12/02/2018 9:08 Results for this AM CDT procedure are in the results section. URINALYSIS W/ REFLEX Routine 12/02/2018 8:24 Results for this URINE CULTURE AM CDT procedure are in the results section. URINE CULTURE Routine 12/02/2018 8:24 Results for this AM CDT procedure are in the results section. XR CHEST 1 VIEW Routine 12/02/2018 7:55 Results for this PORTABLE/BEDSIDE AM CDT procedure are in the results section. ECG 12-LEAD Routine 12/02/2018 7:43 AM CDT Procedure Note - Interface, External Ris In - 12/02/2018 7:45 AM CDT Ventricular Rate 119 BPM Atrial Rate 119 BPM P-R Interval 162 ms QRS Duration 92 ms Q-T Interval 332 ms QTC Calculation(Bazett) 467 ms P [place] -72 degrees R [place] 69 degrees T [place] 74 degrees Unusual P axis, possible ectopic atrial tachycardia Abnormal ECG No previous ECGs available ECG 12-LEAD Routine 12/02/2018 7:43 AM CDT POCT-GLUCOSE METER Routine 12/02/2018 7:40 AM CDT ABORH, MANUAL STAT 12/02/2018 3:48 AM CDT TYPE AND SCREEN, AUTOMATED Routine 12/02/2018 3:05 AM CDT MAGNESIUM Routine 12/02/2018 1:00 AM CDT BASIC METABOLIC PANEL (7) Routine 12/02/2018 1:00 AM CDT CBC (HEMOGRAM ONLY) Routine 12/02/2018 1:00 AM CDT POCT-GLUCOSE METER Routine 12/02/2018 12:49 AM CDT after 12/21/2017 Results RHYTHM STRIP - SCAN (12/12/2018 4:11 PM CDT)Only the most recent of2 resultswithin the time period is included. Narrative Performed At EKG-SCANNED (12/12/2018 7:20 AM CDT) Narrative Performed At PERIPHERAL VASCULAR REPORT - SCAN (12/10/2018 9:12 PM CDT) Narrative Performed At TRANSFUSION SERVICE REPORT - SCAN (12/10/2018 5:50 PM CDT)Only the most recent of4 resultswithin the time period is included. Narrative Performed At POC-Glucose meter (12/10/2018 5:12 PM CDT)Only the most recent of42 resultswithin the time period is included. POC-Glucose Meter 203 (H)Comment: TESTED AT 70 - 110 mg/dL [facility] [address] [facility] [id number] Specimen Blood Performing Organization Address City/State/Zipcode Phone Number [facility] [address] [place] [address] [phone] CENTER Venous doppler arm, right (12/10/2018 12:24 PM CDT) Ejection Fraction [facility] Specimen Impressions Performed At Right Impression [facility] 1. There is no deep venous obstruction in the jugular, subclavian, axillary, brachial, radial or ulnar veins. 2. There is no superficial venous obstruction in the basilic vein. 3. There is total echolucent superficial venous obstruction in the cephalic vein. Conclusions Summary Venous duplex imaging and compression of the right upper extremity were performed. The veins were adequately visualized. The right venous system was patent and compressible with no evidence of deep venous thrombus. The right superficial venous system was positive with acute thrombus. Signature Velocities are measured in cm/s ; Diameters are measured in cm Narrative Performed At PV LAB - Upper Extremities Veins [facility] Demographics Patient NameSCOTT, MITCHELLDate of Study 12/10/2018 Age 73 Visit [id number] GenderMale Date of 1945 Referring [facility] Number [id number] Physician Martha Forestry Foreman Mickey Green RVTPhyximena OROPEZA Procedure Type of Study: Veins: Upper Extremities Veins, VENOUS DOPPLER ARM, RIGHT. Indications for Study:Swelling. Patient Status:STAT. Study Location:Vascular Lab. Technical Quality:Adequate visualization. - Results were reported to:Yakelin MCKEE@14:42. Risk Factors History of Disease +---------+----+ + !Diagnosis!Date!Comments ! +---------+----+ + !Other!!HX COPD, CAD S/P PCI. A-FIB, DM, PAD, S/P B BICA ! +---------+----+ + Procedure Note Interface, External Ris In - 12/10/2018 5:24 PM CDT PV LAB - Upper Extremities Veins Demographics Patient Name JETHRO DUMONT Date of Study 12/10/2018 Age 73 Visit Number [id number] Gender Male Accession Number [id number] Date of 1945 Referring [facility] Room Number [id number] Physician Martha Forestry Foreman Mickey Fischer Interpreting [place] RVT Physician Procedure Type of Study: Veins: Upper Extremities Veins, VENOUS DOPPLER ARM, RIGHT. Indications for Study:Swelling. Patient Status:STAT. Study Location:Vascular Lab. Technical Quality:Adequate visualization. - Results were reported to:Yakelin MCKEE@14:42. Risk Factors History of Disease +---------+----+ + !Diagnosis!Date!Comments ! +---------+----+ + !Other ! !HX COPD, CAD S/P PCI. A-FIB, DM, PAD, S/P B BICA ! +---------+----+ + Impressions Right Impression 1. There is no deep venous obstruction in the jugular, subclavian, axillary, brachial, radial or ulnar veins. 2. There is no superficial venous obstruction in the basilic vein. 3. There is total echolucent superficial venous obstruction in the cephalic vein. Conclusions Summary Venous duplex imaging and compression of the right upper extremity were performed. The veins were adequately visualized. The right venous system was patent and compressible with no evidence of deep venous thrombus. The right superficial venous system was positive with acute thrombus. Signature Velocities are measured in cm/s ; Diameters are measured in cm Performing Organization Address City/State/[facility] Phone Number [facility] MKCK[facility] CPACS Manual Differential (12/10/2018 7:09 AM CDT)Only the most recent of5 resultswithin the time period is included. % Neutros 85 % [facility] % Lymphs 6 % [facility] % Monos 1 % [facility] % Eos 1 % [facility] % Baso 1 % [facility] % Myelo 5 (H) 0 - 0 % [facility] % Atypical Lymphs 1 (H) 0 - 0 % [facility] # Neutros 6.72 (H) 1.78 - 5.38 K/ul [facility] # Lymphs 0.47 (L) 1.32 - 3.57 K/ul [facility] # Monos 0.08 (L) 0.30 - 0.82 K/uL [facility] # Eos 0.08 0.04 - 0.54 K/uL [facility] # Baso 0.08 0.01 - 0.08 K/uL [facility] # Myelo 0.40 (H) 0.00 - 0.00 K/uL [facility] # Atypical Lymphs 0.08 (H) 0.00 - 0.00 K/uL [facility] Total Counted 100 [facility] Smudge Cells Present [facility] Giant Platelet Present [facility] Polychromasia 1+ few [facility] Hypochromia 1+ few [facility] Platelet Conc Adequate [facility] Specimen Blood Narrative Performed At Received comment: [facility] User comments: Slide comments: Performing Organization Address City/State/Zipcode Phone Number [address] [address] [place] CBC with platelet count + automated diff (12/10/2018 7:09 AM CDT)Only the most recent of8 resultswithin the time period is included. WBC 7.9 3.5 - 10.5 K/L [facility] RBC 3.15 (L) 4.63 - 6.08 M/L [facility] Hemoglobin 9.1 (L) 13.7 - 17.5 GM/DL [facility] Hematocrit 28.5 (L) 40.1 - 51.0 % [facility] MCV 90.5 79.0 - 92.2 fL [facility] MCH 28.9 25.7 - 32.2 pg [facility] MCHC 31.9 (L) 32.3 - 36.5 GM/DL [facility] RDW 14.6 (H) 11.6 - 14.4 % [facility] Platelets 288 150 - 450 K/CU MM [facility] MPV 10.6 9.4 - 12.4 fL [facility] nRBC 0 0 - 0 /100 WBC [facility] Specimen Blood Performing Organization Address City/State/Zipcode Phone Number [address] [address] CENTER Magnesium (12/10/2018 7:09 AM CDT)Only the most recent of9 resultswithin the time period is included. Magnesium 1.4 (L) 1.6 - 2.6 mg/dL [facility] Specimen Blood Performing Organization Address City/[facility]/Zipcode Phone Number [address] [address] [phone] CENTER Basic Metabolic Panel (12/10/2018 7:09 AM CDT)Only the most recent of10 resultswithin the time period is included. Sodium 139 136 - 145 meq/L [facility] Potassium 4.1 3.5 - 5.1 meq/L [facility] Chloride 96 (L) 98 - 107 meq/L [facility] CO2 38 (H) 22 - 29 meq/L [facility] BUN 22 (H) 7 - 21 mg/dL [facility] Creatinine 1.05 0.57 - 1.25 mg/dL [facility] Glucose 133 (H) 70 - 105 mg/dL [facility] Calcium 8.6 8.4 - 10.2 mg/dL [facility] EGFR Comment: INSUFFICIENT CLINICAL mL/min/1.73 sq m [facility] DATA TO CALCULATE ESTIMATED [facility] GFR. Specimen Blood Performing Organization Address [facility] Phone Number [address] [address] CENTER Prepare Leuko-Red RBC (12/09/2018 11:54 PM CDT)Only the most recent of3 resultswithin the time period is included. CROSSMATCH COMPATIBLE SAFETRACE TX Unit ABO O Neg [facility] TX UNIT NUMBER [id number] [facility] [place] Status TX_TIMEINCHART [facility] [place] Blood Bank Product RED BLOOD CELLS [facility] [place] PRODUCT CODE [id number] [facility] [place] Specimen Other Performing Organization Address City/[facility] Phone Number SAFETRACE TX Vancomycin level, trough (12/09/2018 3:19 AM CDT) Vancomycin Tr 17.8 10.0 - 20.0 ug/mL [facility] Specimen Blood Performing Organization Address [facility] Phone Number [address] [address] [phone] CENTER Transfuse Leuko-Red RBC (12/08/2018 9:31 PM CDT)Only the most recent of5 resultswithin the time period is included.Procalcitonin (12/08/2018 8:40 AM CDT )Only the most recent of3 resultswithin the time period is included. Procalcitonin 7.07 (H) <0.05 ng/mL [facility] Specimen Blood Narrative Performed At SEPSIS RISK (ng/mL) [facility] Low:0.05-0.50 Intermediate: 0.51-2.00 High: >=2.01 Performing Organization Address [facility]/Zipcode Phone Number [address] [address] CENTER Type and screen, automated (12/08/2018 8:22 AM CDT)Only the most recent of2 resultswithin the time period is included. ABO/RH AUTOMATED (BEAKER) O NEGATIVE [facility] Ab Scrn NEGATIVE [facility] Specimen Blood Performing Organization Address [facility]/Zipcode Phone Number [address] [address] [phone] PICC LINE INSERTION (12/07/2018 12:09 PM CDT) Narrative Performed At Berlin Bryant NP 12/07/20183:36 PM PICC LINE INSERTION Date/Time: 12/06/2018 5:30 AM Performed by: Berlin Bryant NP Authorized by: Berlin Bryant NP Consent: Verbal consent obtained. Written consent obtained. Risks and benefits: risks, benefits and alternatives were discussed Consent given by: patient, spouse and power of workers compensation defense attorney Patient understanding: patient states understanding of the procedure being performed Patient consent: the patient's understanding of the procedure matches consent given Procedure consent: procedure consent matches procedure scheduled Relevant documents: relevant documents present and verified Test results: test results available and properly labeled Site marked: the operative site was marked Imaging studies: imaging studies available Required items: required blood products, implants, devices, and special equipment available Patient identity confirmed: verbally with patient, arm band and hospital-assigned identification number Time out: Immediately prior to procedure a "time out" was called to verify the correct patient, procedure, equipment, administrative support manager and site/side marked as required (with Clayton RN). Indications: vascular access Anesthesia: local infiltration Anesthesia: Local Anesthetic: lidocaine 1% without epinephrine Anesthetic total (ml): 3 ml. Sedation: Patient sedated: no Preparation: skin prepped with 2% chlorhexidine and skin prepped with ChloraPrep (x3) Skin prep agent dried: skin prep agent completely dried prior to procedure Sterile barriers: all five maximum sterile barriers used - cap, mask, sterile gown, sterile gloves, and large sterile sheet Hand hygiene: hand hygiene performed prior to central venous catheter insertion Location: R basilic. Patient position: flat Catheter type: double lumen Catheter size: 5 Fr (cut to 43 cm andi) Pre-procedure: landmarks identified Ultrasound guidance: yes Sterile ultrasound techniques: sterile gel and sterile probe covers were used Number of attempts: 1 Successful placement: yes Post-procedure: dressing applied (statlock dressing) Assessment: blood return through all ports,free fluid flow,placement verified by x-ray and no pneumothorax on x-ray Patient tolerance: Patient tolerated the procedure well with no immediate complications Immediate Post-Procedure Note Date/Time: 12/07/2018 3:35 PM Assistants to the procedure: None Pre-procedure diagnosis: ugib Post-procedure diagnosis: ugib Procedures Performed: PICC LINE INSERTION Specimens removed: None Estimated blood loss (mL): None Complications: None Type of anesthesia: None Grafts or Implants: None ECHOCARDIOGRAM REPORT - SCAN (12/06/2018 9:20 PM CDT) Narrative Performed At XR chest PA or AP 1 view (12/06/2018 6:37 PM CDT) Specimen Narrative Performed At Addendum Begins ITC RIS REPORT STATUS:A Addendum: An additional image was acquired. Tip of the right upper extremity central line projects over the superior vena cava. Signed: Mickey Espinal MD Report Verified Date/Time:12/06/2018 20:12:07 Reading Location: [address] Reading Room Addendum Ends Addendum Begins REPORT STATUS:A Addendum: Examination was repeated. Tip of the right upper extremity central line remains indistinct. Signed: Mickey Espinal MD Report Verified Date/Time:12/06/2018 20:05:52 Reading Location: [address] Reading Room Addendum Ends FINAL REPORT EXAMINATION: AP PORTABLE CHEST RADIOGRAPH CLINICAL INDICATION: Central line placement IMPRESSION: Compared with 12/05/2018. Distal segment of the new right upper extremity central line projects along the expected course of the superior vena cava. However the tip is obscured. Consider repeat imaging to confirm appropriate positioning. Tip of the nasogastric tube extends below the inferior margin of today's study. Cardiac and mediastinal contours are grossly stable. Opacities are again noted in both lungs, most conspicuous at the lung lung bases which may reflect atelectasis given the morphology and distribution. However, pulmonary edema or an underlying pneumonia cannot be excluded. Recommend clinical correlation. Note: Suboptimal visualization of the right upper extremity central line discussed one of the technologist from the radiology department. The examination will be repeated and an addendum will be added to this report. Signed: Mickey Espinal MD Report Verified Date/Time:12/06/2018 19:07:07 Reading Location: [address] Reading Room Procedure Note Interface, External Ris In - 12/06/2018 8:14 PM CDT Addendum Begins REPORT STATUS:A Addendum: An additional image was acquired. Tip of the right upper extremity central line projects over the superior vena cava. Signed: Mickey Espinal MD Report Verified Date/Time: 12/06/2018 20:12:07 Reading Location: [address] Reading Room Addendum Ends Addendum Begins REPORT STATUS:A Addendum: Examination was repeated. Tip of the right upper extremity central line remains indistinct. Signed: Mickey Espinal MD Report Verified Date/Time: 12/06/2018 20:05:52 Reading Location: [address] Reading Room Addendum Ends FINAL REPORT EXAMINATION: AP PORTABLE CHEST RADIOGRAPH CLINICAL INDICATION: Central line placement IMPRESSION: Compared with 12/05/2018. Distal segment of the new right upper extremity central line projects along the expected course of the superior vena cava. However the tip is obscured. Consider repeat imaging to confirm appropriate positioning. Tip of the nasogastric tube extends below the inferior margin of today's study. Cardiac and mediastinal contours are grossly stable. Opacities are again noted in both lungs, most conspicuous at the lung lung bases which may reflect atelectasis given the morphology and distribution. However, pulmonary edema or an underlying pneumonia cannot be excluded. Recommend clinical correlation. Note: Suboptimal visualization of the right upper extremity central line discussed one of the technologist from the radiology department. The examination will be repeated and an addendum will be added to this report. Signed: Mickey Espinal MD Report Verified Date/Time: 12/06/2018 19:07:07 Reading Location: [address] Reading Room Performing Organization Address [facility] Phone Number [facility] Troponin I (12/06/2018 4:56 PM CDT)Only the most recent of2 resultswithin the time period is included. Troponin I 0.02 0.00 - 0.03 ng/mL [facility] Specimen Blood Narrative Performed At Troponin I (TnI) levels must be interpreted [facility] in the context of the presenting symptoms and the clinical findings. Elevated TnI levels indicate myocardial damage, but are not specific for ischemic heart disease. Elevated TnI levels are seen in patients with other cardiac conditions (including myocarditis and congestive heart failure), and slight TnI elevations occur in patients with other conditions, including sepsis, renal failure, acidosis, acute neurological disease, and persistent tachyarrhythmia. Performing Organization Address City/State/Zipcode Phone Number [place] [phone] [place] [address] CENTER Lactic acid, venous (12/06/2018 4:56 PM CDT)Only the most recent of4 resultswithin the time period is included. Lactate, Venous 0.6 0.5 - 2.2 mmol/L [facility] Specimen Blood Performing Organization Address City/[facility] Phone Number [address] [phone] [place] Prothrombin time/INR (12/06/2018 4:56 PM CDT)Only the most recent of2 resultswithin the time period is included. Protime 16.0 (H) 11.7 - 14.7 seconds [facility] INR 1.4 <=5.9 [facility] Specimen Blood Narrative Performed At RECOMMENDED COUMADIN/WARFARIN INR THERAPY [facility] RANGES STANDARD DOSE: 2.0 - 3.0 Includes: PROPHYLAXIS for venous thrombosis, systemic embolization; TREATMENT for venous thrombosis and/or pulmonary embolus. HIGH RISK: Target INR is 2.5-3.5 for patients with mechanical heart valves. Performing Organization Address City/State/Zipcode Phone Number [address] [address] [place] Comprehensive metabolic panel (12/06/2018 4:56 PM CDT) Protein, Total 5.5 (L) 6.0 - 8.3 gm/dL [facility] Albumin 2.5 (L) 3.5 - 5.0 g/dL [facility] Alkaline Phosphatase 172 (H) 40 - 150 U/L [facility] Total Bilirubin 0.2 0.2 - 1.2 mg/dL [facility] Sodium 134 (L) 136 - 145 meq/L [facility] Potassium 4.8 3.5 - 5.1 meq/L [facility] Chloride 101 98 - 107 meq/L [facility] CO2 26 22 - 29 meq/L [facility] BUN 39 (H) 7 - 21 mg/dL [facility] Creatinine 1.55 (H) 0.57 - 1.25 mg/dL [facility] Glucose 175 (H) 70 - 105 mg/dL [facility] Calcium 8.3 (L) 8.4 - 10.2 mg/dL [facility] AST 23 5 - 34 U/L [facility] ALT 18 6 - 55 U/L [facility] EGFR Comment: INSUFFICIENT mL/min/1.73 sq m [facility] CLINICAL DATA TO [facility] CALCULATE ESTIMATED GFR. Specimen Blood Performing Organization Address City/State/Zipcode Phone Number [facility] [address] [place] [address] [phone] abdomen/pelvis without iv contrast (12/06/2018 3:12 PM CDT)Only the most recent of2 resultswithin the time period is included. Specimen Narrative Performed At FINAL REPORT [place] CT abdomen and pelvis without contrast History: Abdominal pain and fever Comparison: 12/03/2018 Technique: serial axial imaging was performed without intravenous contrast as per departmental protocol.Multiplanar images are reconstructed and reviewed when indicated. This CT examination is performed using one or more of the following dose reduction techniques: Automated exposure control, adjustment of the mA and /or kV according to patient size, and/or use of iterative reconstruction technique. Findings: Evaluation limited by lack of intravenous contrast. Interval development of small bilateral pleural effusions. Calcified granulomata within the liver and spleen are consistent with previous granulomatous disease. Interval insertion of nasogastric tube, which terminates within the stomach. The unenhanced liver, gallbladder, pancreas, and spleen are otherwise grossly unremarkable. Again seen are bilateral nonobstructing renal calculi. No hydronephrosis is appreciated. There is nonspecific bilateral perinephric stranding which is unchanged from the prior exam. The bladder is decompressed by a Eisenberg catheter, limiting assessment. No small or large bowel obstruction.No apparent bowel wall thickening.No findings to indicate acute appendicitis. No free fluid or adenopathy. No aggressive osseous lesion. Impression: Interval insertion of nasogastric tube into the stomach. Otherwise, no significant interval change. Signed: Abiodun Macias MD Report Verified Date/Time:12/06/2018 15:53:40 Reading Location: [facility] Reading Room Procedure Note Interface, External Ris In - 12/06/2018 3:56 PM CDT FINAL REPORT CT abdomen and pelvis without contrast History: Abdominal pain and fever Comparison: 12/03/2018 Technique: serial axial imaging was performed without intravenous contrast as per departmental protocol. Multiplanar images are reconstructed and reviewed when indicated. This CT examination is performed using one or more of the following dose reduction techniques: Automated exposure control, adjustment of the mA and /or kV according to patient size, and/or use of iterative reconstruction technique. Findings: Evaluation limited by lack of intravenous contrast. Interval development of small bilateral pleural effusions. Calcified granulomata within the liver and spleen are consistent with previous granulomatous disease. Interval insertion of nasogastric tube, which terminates within the stomach. The unenhanced liver, gallbladder, pancreas, and spleen are otherwise grossly unremarkable. Again seen are bilateral nonobstructing renal calculi. No hydronephrosis is appreciated. There is nonspecific bilateral perinephric stranding which is unchanged from the prior exam. The bladder is decompressed by a Eisenberg catheter, limiting assessment. No small or large bowel obstruction. No apparent bowel wall thickening. No findings to indicate acute appendicitis. No free fluid or adenopathy. No aggressive osseous lesion. Impression: Interval insertion of nasogastric tube into the stomach. Otherwise, no significant interval change. Signed: Abiodun Macias MD Report Verified Date/Time: 12/06/2018 15:53:40 Reading Location: [facility] Reading Room Performing Organization Address City/[facility]/Zipcode Phone Number [facility] Hemoglobin and hematocrit (12/05/2018 10:37 PM CDT)Only the most recent of3 resultswithin the time period is included. Hemoglobin 7.2 (L) 13.7 - 17.5 GM/DL [facility] Hematocrit 23.0 (L) 40.1 - 51.0 % [facility] Specimen Blood Performing Organization Address City/[facility] Hospital/Zipcode Phone Number [address] [address] CENTER Lactic Acid, Arterial (12/05/2018 9:54 PM CDT)Only the most recent of2 resultswithin the time period is included. Lactate, Art 2.1 0.5 - 2.2 mmol/L [facility] Specimen Blood, Arterial Performing Organization Address City/[facility]/Zipcode Phone Number [address] [address] CENTER Blood Culture - Routine (Left Venipuncture) (12/05/2018 9:53 PM CDT)Only the most recent of4 resultswithin the time period is included. Result No growth in 5 days [facility] Specimen Blood Performing Organization Address [facility] Phone Number [address] [address] [place] Blood gas, arterial (12/05/2018 9:51 PM CDT)Only the most recent of2 resultswithin the time period is included. pH, Arterial 7.41 7.35 - 7.45 [facility] pCO2, Arterial 44 35 - 45 mmHg [facility] pO2, Arterial 187 (H) 80 - 90 mmHg [facility] O2 Sat, Arterial 99.3 (H) 96.0 - 97.0 % [facility] HCO3, Arterial 27 21 - 29 mmol/L [facility] Base Excess, Arterial 2.1 -2.0 - 3.0 mmol/L [facility] Patient Temperature 37.0 C [facility] FIO2 60.0 % [facility] Specimen Blood, Arterial Performing Organization Address City/[facility]/Zipcode Phone Number [address] [address] [phone] CENTER Urinalysis w/Microscopic + Reflex to Culture (12/05/2018 9:13 PM CDT)Only the most recent of2 resultswithin the time period is included. Color, UA Yellow [facility] Clarity, UA Cloudy [facility] Specific [place], UA 1.016 1.001 - 1.035 [facility] pH, UA 5.5 5.0 - 8.0 [facility] Protein, UA 100 mg/dL (A) Negative [facility] Glucose, UA Negative Negative [facility] Ketones, UA Trace (A) Negative [facility] Bilirubin, UA Negative Negative [facility] Blood, UA Trace (A) Negative [facility] Nitrite, UA Negative Negative [facility] Leukocytes, UA Small (A) Negative [facility] Urobilinogen, UA 0.2 0.2 - 1.0 mg/dL [facility] RBC, UA 0 /HPF [facility] WBC, UA 4 /HPF [facility] Mucus Rare [facility] Specimen Source [facility] Specimen Urine Performing Organization Address City/State/Zipcode Phone Number [facility] [address] [place] [address] [phone] CENTER 2D Echo W/Doppler(CW/PW/Color) (12/05/2018 6:18 PM CDT) Ejection Fraction [facility] ECHO [facility] Specimen Narrative Performed At Transthoracic Echocardiography Report (TTE) [facility] ECHO [facility] Demographics Patient Name JETHRO DUMONT Date of Study 12/05/2018 [id number] GenderMale Visit Number [id number] Unknown [id number] Room Number 6210 Number Date of Birth1945Referring Physician Bob QUINN Age73 year(s)Forestry Foreman Elana Le RDCS InterpretingJose ph Anayeli Bal, Physician Fellow SONY Sena Procedure Type of Study TTE procedure:2DECHO W DOPPLER(CW/PW/COLOR) (STAT) Indications:Shortness of breath. Clinical History CHF, CAD s/p PCI, Afib on eliquis, Former smoker, Severe sepsis, COPD, DM II HGB 9.0 HCT 28.5 % Contrast Medium: Definity. Amount - 2 ml Height: 72 inches Weight: 97.07 kg (214 lbs) BSA: 2.19 m^2 BMI: 29.02 kg/m^2 HR: 126 bpm BP: 186/78 mmHg Summary The left ventricle is chamber size (by vol index) is normal (male - LVED vol - 34-74ml/m2). Borderline concentric LV hypertrophy. All of the LV segments contract normally . Estimated LVEF by qualitative assessment is normal (60%) . RV is mildly dilated Global RV systolic function is low normal . Estimated peak systolic PA pressure is cannot be determined due to inadequate TR velocity signal . Previous Study Compared to the previous study there was no significant change. Signature Findings Technical Quality: Technically difficult exam. Rhythm/BPIrregular rapid rhythm during the exam. Left Ventricle LV endocardium is adequately visualized with IV ul trasound enhancing agent. Th e left ventricle is chamber size (by vol index) is normal (male - LVED vol - 34-74ml/m2). Geovanny rderline concentric LV hypertrophy. Al l of the LV segments contract normally . Es timated LVEF by qualitative assessment is normal (6 0%) . Left AtriumLA size is normal (16-34 ml/m2) . Right VentricleRV is mildly dilated Gl obal RV systolic function is low normal . Right Atrium RA size is probably normal based on available vi ews. Aortic Valve Mild cusp thickening Mitral Valve Mild mitral annular calcification Tr gutierrez MR Tricuspid ValveTV structure is normal. Es timated peak systolic PA pressure is cannot be de termined due to inadequate TR velocity signal . Pulmonic Valve Normal PV structure and function by limited views an d Doppler. AortaAortic root size (SInus of Valsalva diameter) is no rmal . PericardiumNo significant pericardial effusion is visualized. IVC/SVC/PA/PV/PleuralThe estimated RA pressure by IVC dynamics 5-10mmHg . Chambers/Structures Left Atrium LA Volume: 29.45 ml LA Area: 12.74 cm^2 LA Vol. Index: 13 ml/m^2 Left Ventricle LVIDd: 4.46 cm LVEDV:90.46 ml LVIDs: 3.32 cm LVESV:36.6 ml LV Septum Diastolic: 1.4 cm LVEF 2D Cube: 58.7 % LV PW Diastolic: 1.35 cm LVEDV Tyson's:130.23 ml LV FS: 25.6 % LVESV Tyson's:56.51 ml LVEF Tyson's: 56.6 %LVEDVI: 59 ml/m^2 LVESVI: 26 ml/m^2 LVOT Diameter: 2.05 cm LVEF: 59.5 % Right Ventricle RV Diast Dim.: 4.09 cm TAPS E: 1.53 cm Aorta Ao Root S of Adwoa.: 3.11 cm Doppler/Quantitative Measurements Aortic Valve Peak Velocity: 1.16 m/sMean Velocity: 0.71 m/s Peak Gradient: 5.41 mmHg Mean Gradient: 2.34 mmHg AV Area (continuity): 2.5 cm^2 AV VTI: 18.54 cm AV DVI: 0.76 LVOT Peak Velocity: 0.85 m/s Peak Gradient: 2.9 mmHg Mean Velocity: 0.58 m/s Mean Gradient: 1.57 mmHg LVOT Diameter: 2.05 cmLVOT VTI: 14.06 cm LVOT Area: 3.3 cm^2 LVOT SV:46.38 ml LVOT CO: 5.84 l/min LVOT CI: 2.67 l/min/m^2 Tricuspid Valve TR Velocity: 2.12 m/s TR Gradient: 17.97 mmHg Procedure Note Interface, External Ris In - 12/06/2018 8:48 AM CDT Transthoracic Echocardiography Report (TTE) Demographics Patient Name JETHRO DUMONT Date of Study 12/05/2018 Gender Male Visit Number [id number] Race Unknown Room Number 6210 Number Date of 1945 Referring Physician Bob QUINN Age 73 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 Clinical History CHF, CAD s/p PCI, Afib on eliquis, Former smoker, Severe sepsis, COPD, DM II HGB 9.0 HCT 28.5 % Contrast Medium: Definity. Amount - 2 ml Height: 72 inches Weight: 97.07 kg (214 lbs) BSA: 2.19 m^2 BMI: 29.02 kg/m^2 HR: 126 bpm BP: 186/78 mmHg Summary The left ventricle is chamber size (by vol index) is normal (male - LVED vol - 34-74ml/m2). Borderline concentric LV hypertrophy. All of the LV segments contract normally . Estimated LVEF by qualitative assessment is normal (60%) . RV is mildly dilated Global RV systolic function is low normal . Estimated peak systolic PA pressure is cannot be determined due to inadequate TR velocity signal . Previous Study Compared to the previous study there was no significant change. Signature Findings Technical Quality: Technically difficult exam. Rhythm/BP Irregular rapid rhythm during the exam. Left Ventricle LV endocardium is adequately visualized with IV ultrasound enhancing agent. The left ventricle is chamber size (by vol index) is normal (male - LVED vol - 34-74ml/m2). Borderline concentric LV hypertrophy. All of the LV segments contract normally . Estimated LVEF by qualitative assessment is normal (60%) . Left Atrium LA size is normal (16-34 ml/m2) . Right Ventricle RV is mildly dilated Global RV systolic function is low normal . Right Atrium RA size is probably normal based on available views. Aortic Valve Mild cusp thickening Mitral Valve Mild mitral annular calcification Trace MR Tricuspid Valve TV structure is normal. Estimated peak systolic PA pressure is cannot be determined due to inadequate TR velocity signal . Pulmonic Valve Normal PV structure and function by limited views and Doppler. Aorta Aortic root size (SInus of Valsalva diameter) is normal . Pericardium No significant pericardial effusion is visualized. IVC/SVC/PA/PV/Pleural The estimated RA pressure by IVC dynamics 5-10mmHg . Chambers/Structures Left Atrium LA Volume: 29.45 ml LA Area: 12.74 cm^2 LA Vol. Index: 13 ml/m^2 Left Ventricle LVIDd: 4.46 cm LVEDV:90.46 ml LVIDs: 3.32 cm LVESV:36.6 ml LV Septum Diastolic: 1.4 cm LVEF 2D Cube: 58.7 % LV PW Diastolic: 1.35 cm LVEDV Tyson's:130.23 ml LV FS: 25.6 % LVESV Tyson's:56.51 ml LVEF Tyson's: 56.6 % LVEDVI: 59 ml/m^2 LVESVI: 26 ml/m^2 LVOT Diameter: 2.05 cm LVEF: 59.5 % Right Ventricle RV Diast Dim.: 4.09 cm TAPSE: 1.53 cm Aorta Ao Root S of Adwoa.: 3.11 cm Doppler/Quantitative Measurements Aortic Valve Peak Velocity: 1.16 m/s Mean Velocity: 0.71 m/s Peak Gradient: 5.41 mmHg Mean Gradient: 2.34 mmHg AV Area (continuity): 2.5 cm^2 AV VTI: 18.54 cm AV DVI: 0.76 LVOT Peak Velocity: 0.85 m/s Peak Gradient: 2.9 mmHg Mean Velocity: 0.58 m/s Mean Gradient: 1.57 mmHg LVOT Diameter: 2.05 cm LVOT VTI: 14.06 cm LVOT Area: 3.3 cm^2 LVOT SV:46.38 ml LVOT CO: 5.84 l/min LVOT CI: 2.67 l/min/m^2 Tricuspid Valve TR Velocity: 2.12 m/s TR Gradient: 17.97 mmHg Performing Organization Address City/State/Zipcode Phone Number [facility] ECHO HEARTLAB [facility] ECG 12 lead (12/05/2018 5:24 PM CDT)Only the most recent of5 resultswithin the time period is included. Specimen Narrative Performed At Ventricular Rate 133 BPM GE MUSE Atrial Rate 133 BPM P-R Interval 162 ms QRS Duration 94 ms Q-T Interval 322 ms QTC Calculation(Bazett) 479 ms R [place] 66 degrees T [place] 56 degrees Sinus tachycardia with Premature atrial complexes Nonspecific ST and T wave abnormality Abnormal ECG Confirmed by MD Tyson Roberto ([id number]) on 12/06/2018 10:29:14 AM Procedure Note Interface, External Ris In - 12/06/2018 10:29 AM CDT Ventricular Rate 133 BPM Atrial Rate 133 BPM P-R Interval 162 ms QRS Duration 94 ms Q-T Interval 322 ms QTC Calculation(Bazett) 479 ms R [place] 66 degrees T [place] 56 degrees Sinus tachycardia with Premature atrial complexes Nonspecific ST and T wave abnormality Abnormal ECG Confirmed by MD Tyson Roberto ([id number]) on 12/06/2018 10:29:14 AM Performing Organization Address City/[facility] Phone Number [employer] B-type Natriuretic Factor (BNP) (12/05/2018 5:06 PM CDT)Only the most recent of2 resultswithin the time period is included. BNP 278 (H) 0 - 100 pg/mL [facility] Specimen Blood Performing Organization Address City/[facility]/Zipcode Phone Number [facility] MEDICAL [address] [place] [phone] CENTER XR chest 1 view portable / bedside (12/05/2018 5:00 PM CDT)Only the most recent of2 resultswithin the time period is included. Specimen Narrative Performed At FINAL REPORT GE RIS History: Intubation. Comparison: 12/02/2018 Findings: A single view of the chest is submitted. The tip of an endotracheal tube is in position above the gladis at the level of the inferior clavicular heads. The cardiac silhouette is within normal limits for size. The lung volumes are slightly low but equally aerated. Hazy bibasilar opacities may reflect atelectasis. Pneumonitis should be excluded clinically. There is no pneumothorax or acute bony abnormality. Signed: Sergey Sommer MD Report Verified Date/Time:12/05/2018 19:53:20 Procedure Note Interface, External Ris In - 12/05/2018 7:55 PM CDT FINAL REPORT History: Intubation. Comparison: 12/02/2018 Findings: A single view of the chest is submitted. The tip of an endotracheal tube is in position above the gladis at the level of the inferior clavicular heads. The cardiac silhouette is within normal limits for size. The lung volumes are slightly low but equally aerated. Hazy bibasilar opacities may reflect atelectasis. Pneumonitis should be excluded clinically. There is no pneumothorax or acute bony abnormality. Signed: Sergey Sommer MD Report Verified Date/Time: 12/05/2018 19:53:20 Performing Organization Address City/[facility]/Zipcode Phone Number RIS Phosphorus (12/05/2018 4:53 PM CDT) Phosphorus 3.0Comment: Specimen slightly 2.3 - 4.7 mg/dL [facility] hemolyzed [facility] Specimen Blood Performing Organization Address [facility]/Zipcode Phone Number [address] [address] [phone] CENTER Creatine Kinase (CK) (12/05/2018 4:53 PM CDT) Total CK 35 29 - 200 U/L [facility] Specimen Blood Performing Organization Address [facility] Phone Number [address] [place] [address] [phone] CENTER Ferritin (12/05/2018 5:09 AM CDT) Ferritin 62 5 - 275 ng/mL [facility] Specimen Blood Performing Organization Address [facility] Phone Number [address] [address] [place] REPORT OF PROCEDURE - ENDOSCOPY URL (12/03/2018 8:43 AM CDT) Narrative Performed At Sputum Culture + Gram Stain (12/03/2018 7:01 AM CDT)Only the most recent of2 resultswithin the time period is included. Result Oropharyngeal contamination, [facility] specimen rejected. Recollect MEDICAL CENTER requested. Gram Stain Result 2+ gram positive cocci in pairs [facility] Gram Stain Result 2+ gram negative rods [facility] Gram Stain Result 2+ White blood cells seen [facility] Gram Stain Result >25 epithelial cells [facility] Specimen Sputum - Expectorated Performing Organization Address [facility] Phone Number [address] [address] [place] Vitamin B12 and Folate (12/03/2018 3:56 AM CDT) Vitamin B12 269 213 - 816 pg/mL [facility] Folate 10.9 >=7.0 ng/mL [facility] Specimen Blood Performing Organization Address City/[facility]/Zipcode Phone Number [address] [address] CENTER Iron, TIBC, % sat. (without ferritin) (12/03/2018 3:56 AM CDT) Iron 9.0 (L) 40.0 - 160.0 ug/dL [facility] TIBC 269 250 - 450 ug/dL [facility] Iron % Saturation 3 (L) 20 - 55 % [facility] Specimen Blood Performing Organization Address City/[facility]/Zipcode Phone Number [address] [address] CENTER CBC (Hemogram only) (12/03/2018 3:56 AM CDT)Only the most recent of4 resultswithin the time period is included. WBC 6.4 3.5 - 10.5 K/L [facility] RBC 2.56 (L) 4.63 - 6.08 M/L [facility] Hemoglobin 7.7 (L) 13.7 - 17.5 GM/DL [facility] Hematocrit 23.8 (L) 40.1 - 51.0 % [facility] MCV 93.0 (H) 79.0 - 92.2 fL [facility] MCH 30.1 25.7 - 32.2 pg [facility] MCHC 32.4 32.3 - 36.5 GM/DL [facility] RDW 16.4 (H) 11.6 - 14.4 % [facility] Platelets 182 150 - 450 K/CU MM [facility] MPV 10.4 9.4 - 12.4 fL [facility] nRBC 0 0 - 0 /100 WBC [facility] Specimen Blood Performing Organization Address City/[facility]/Zipcode Phone Number [place] [phone] [place] [address] [phone] CENTER Vancomycin level, random (12/03/2018 3:56 AM CDT) Vancomycin Rm 16.0 ug/mL [facility] Specimen Blood Narrative Performed At Reference Range: No Normals [facility] Performing Organization Address City/[facility]/Zipcode Phone Number [place] [phone] [place] [address] [phone] CENTER ECHOCARDIOGRAM REPORT - SCAN (12/02/2018 9:21 PM CDT) Narrative Performed At US pelvis limited (12/02/2018 6:33 PM CDT) Specimen Narrative Performed At FINAL REPORT ITC [facility] Ultrasound of the Abdomen and pelvis, 12/02/2018. Clinical History:Acute kidney injury. Lactic acidosis. Comparison: None. Discussion: Sonographic evaluation of the abdomen and pelvis is performed. Liver: 14.9 cm in length at the right midclavicular line, normal in size.Normal echogenicity.Homogeneous echotexture.No mass.Main portal vein diameter 1.0 cm. Biliary tree:Common duct 9 mm.The common duct is mildly prominent but there is no intrahepatic biliary ductal dilatation. Gallbladder:Mildly distended. No gallstones.No wall thickening. No pericholecystic fluid. Equivocal sonographic Flores sign. Pancreas: Obscured by bowel gas. Ascites:None. Spleen:13.1 cm in length, mildly enlarged. Kidneys: Right kidney 10.8 cm in length, normal in size, with cortical thickness of 1.6 cm.Left kidney 11.0 cm in length, normal in size, with cortical thickness of 1.4 cm.Normal cortical echogenicity.No mass.There is a punctate nonobstructing nephrolith in the interpolar aspect of the right kidney.No hydronephrosis. Urinary bladder: Decompressed by Eisenberg catheter. IVC/Aorta:Segments partially seen.Unremarkable. Impression: 1. Mild distention of the gallbladder. 2. 4 mm nonobstructing right nephrolith. Kidneys otherwise unremarkable. Signed: Isatu Billingsley MD Report Verified Date/Time:12/02/2018 18:44:56 Reading Location: [address] Reading Room Procedure Note Interface, External Ris In - 12/02/2018 6:47 PM CDT FINAL REPORT Ultrasound of the Abdomen and pelvis, 12/02/2018. Clinical History: Acute kidney injury. Lactic acidosis. Comparison: None. Discussion: Sonographic evaluation of the abdomen and pelvis is performed. Liver: 14.9 cm in length at the right midclavicular line, normal in size. Normal echogenicity. Homogeneous echotexture. No mass. Main portal vein diameter 1.0 cm. Biliary tree: Common duct 9 mm. The common duct is mildly prominent but there is no intrahepatic biliary ductal dilatation. Gallbladder: Mildly distended. No gallstones. No wall thickening. No pericholecystic fluid. Equivocal sonographic Flores sign. Pancreas: Obscured by bowel gas. Ascites: None. Spleen: 13.1 cm in length, mildly enlarged. Kidneys: Right kidney 10.8 cm in length, normal in size, with cortical thickness of 1.6 cm. Left kidney 11.0 cm in length, normal in size, with cortical thickness of 1.4 cm. Normal cortical echogenicity. No mass. There is a punctate nonobstructing nephrolith in the interpolar aspect of the right kidney. No hydronephrosis. Urinary bladder: Decompressed by Eisenberg catheter. IVC/Aorta: Segments partially seen. Unremarkable. Impression: 1. Mild distention of the gallbladder. 2. 4 mm nonobstructing right nephrolith. Kidneys otherwise unremarkable. Signed: Isatu Billingsley MD Report Verified Date/Time: 12/02/2018 18:44:56 Reading Location: [address] Transitional Reading Room Performing Organization Address City/State/Zipcode Phone Number [place] US abdomen complete (12/02/2018 6:33 PM CDT) Specimen Narrative Performed At FINAL REPORT [place] Ultrasound of the Abdomen and pelvis, 12/02/2018. Clinical History:Acute kidney injury. Lactic acidosis. Comparison: None. Discussion: Sonographic evaluation of the abdomen and pelvis is performed. Liver: 14.9 cm in length at the right midclavicular line, normal in size.Normal echogenicity.Homogeneous echotexture.No mass.Main portal vein diameter 1.0 cm. Biliary tree:Common duct 9 mm.The common duct is mildly prominent but there is no intrahepatic biliary ductal dilatation. Gallbladder:Mildly distended. No gallstones.No wall thickening. No pericholecystic fluid. Equivocal sonographic Flores sign. Pancreas: Obscured by bowel gas. Ascites:None. Spleen:13.1 cm in length, mildly enlarged. Kidneys: Right kidney 10.8 cm in length, normal in size, with cortical thickness of 1.6 cm.Left kidney 11.0 cm in length, normal in size, with cortical thickness of 1.4 cm.Normal cortical echogenicity.No mass.There is a punctate nonobstructing nephrolith in the interpolar aspect of the right kidney.No hydronephrosis. Urinary bladder: Decompressed by Eisenberg catheter. IVC/Aorta:Segments partially seen.Unremarkable. Impression: 1. Mild distention of the gallbladder. 2. 4 mm nonobstructing right nephrolith. Kidneys otherwise unremarkable. Signed: Isatu Billingsley MD Report Verified Date/Time:12/02/2018 18:44:56 Reading Location: [address] Reading Room Procedure Note Interface, External Ris In - 12/02/2018 6:47 PM CDT FINAL REPORT Ultrasound of the Abdomen and pelvis, 12/02/2018. Clinical History: Acute kidney injury. Lactic acidosis. Comparison: None. Discussion: Sonographic evaluation of the abdomen and pelvis is performed. Liver: 14.9 cm in length at the right midclavicular line, normal in size. Normal echogenicity. Homogeneous echotexture. No mass. Main portal vein diameter 1.0 cm. Biliary tree: Common duct 9 mm. The common duct is mildly prominent but there is no intrahepatic biliary ductal dilatation. Gallbladder: Mildly distended. No gallstones. No wall thickening. No pericholecystic fluid. Equivocal sonographic Flores sign. Pancreas: Obscured by bowel gas. Ascites: None. Spleen: 13.1 cm in length, mildly enlarged. Kidneys: Right kidney 10.8 cm in length, normal in size, with cortical thickness of 1.6 cm. Left kidney 11.0 cm in length, normal in size, with cortical thickness of 1.4 cm. Normal cortical echogenicity. No mass. There is a punctate nonobstructing nephrolith in the interpolar aspect of the right kidney. No hydronephrosis. Urinary bladder: Decompressed by Eisenberg catheter. IVC/Aorta: Segments partially seen. Unremarkable. Impression: 1. Mild distention of the gallbladder. 2. 4 mm nonobstructing right nephrolith. Kidneys otherwise unremarkable. Signed: Isatu Billingsley MD Report Verified Date/Time: 12/02/2018 18:44:56 Reading Location: [facility] C[address]T [facility] Reading Room Performing Organization Address City/State/Zipcode Phone Number [place] 2D Echo W/Doppler(CW/PW/Color) (12/02/2018 1:11 PM CDT) Ejection Fraction [facility] ECHO [facility] Specimen Narrative Performed At Transthoracic Echocardiography Report (TTE) [facility] ECHO 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 Clinical History Former smoker, Afib, CAD, CHF, Severe sepsis HGB 7.8 HCT 24.7 % Height: 72 inches Weight: 97.07 kg (214 lbs) BSA: 2.19 m^2 BMI: 29.02 kg/m^2 HR: 91 bpm BP: 124/60 mmHg Summary 1. Normal LV size and function. LVEF is 55-60% 2. Diastology: Grade 1 diastolic dysfunction 3. RV is mildly enlarged. Normal RV function 4. No significant valvular heart disease 5. Mild TR. Estimated PASP is 37-42 mm Hg 6. No pericardial effusion noted Previous Study No prior exam available for comparison. Signature Findings Technical Quality: Good visualization Rhythm/BPRegular sinus rhythm during the exam. Left Ventricle The left ventricle is chamber size (by PSLAX di mension) is normal (male - LVIDd 4.2-5.8cm) . No rmal LV wall thickness. All of the LV segments co ntract normally . Global LV systolic function no rmal . LVEF by Tyson's method of disk as sessment is normal (55-60%) . The LVEF was me asured using Tyson's bi-plane method of disk . Gr angela 1 diastolic dysfunction . Normal (cardiac in dex 2-3 L/min/m2) cardiac output state at rest is no rodger. Left AtriumLA size is severely enlarged (>48 ml/m2) . Right VentricleRV chamber size is mildly enlarged . Gl obal RV systolic function is normal . Right Atrium RA cavity size is normal . Atrial SeptumLipomatous hypertrophy of the interatrial septum is pr esent. Aortic Valve Mild AoV cusp calcification. Ao V cusp mobility is normal . Mitral Valve Mild mitral annular calcification. Mi ld MV leaflet thickening. Tr gutierrez mitral regurgitation. Tricuspid ValveMild tricuspid regurgitation. Es timated peak systolic PA pressure is 37-42 mmHg . Pulmonic Valve PV is not well visualized; function appears normal by Doppler visualized. AortaAortic root size (SInus of Valsalva diameter) is no rmal . PericardiumNo significant pericardial effusion is visualized. IVC/SVC/PA/PV/PleuralThe estimated RA pressure by IVC dynamics 5-10mmHg . Chambers/Structures Left Atrium LA Volume: 111.52 mlLA Area: 32.91 cm^2 LA Vol. Index: 51 ml/m^2 Left Ventricle LVIDd: 5.42 cm LV Septum Diastolic: 1.12 cm LV PW Diastolic: 1.03 cm LVEDV Tyson's:93.29 ml LVESV Tyson's:40.85 ml LVEF Tyson's: 56.2 %LVEDV I: 43 ml/m^2 LVESVI: 19 ml/m^2 LVOT Diameter: 2.33 cm Right Atrium RA Vol. (Sngl Plane): 41.32 ml Right Ventricle TAPSE: 1.88 cm Aorta Ao Root S of Adwoa.: 3.48 cm Doppler/Quantitative Measurements Mitral Valve MV Peak E-Wave: 0.93 m/sMV Peak A-Wave: 0.58 m/s E/A Ratio: 1.59 Peak Gradient: 3.43 mmHg Deceleration Time: 178.7 msec MV Solis. Peak: Tissue Doppler E' Septal Velocity: 0.06 m/sE/E': 16.62 E' Lateral Velocity: 0.06 m/s Aortic Valve Peak Velocity: 1.01 m/sMean Velocity: 0.8 m/s Peak Gradient: 4.1 mmHgMean Gradient: 2.7 mmHg AV Area (continuity): 3.4 cm^2 AV VTI: 23.11 cm AV DVI: 0.8 LVOT Peak Velocity: 0.8 m/sPeak Gradient: 2.55 mmHg Mean Velocity: 0.57 m/s Mean Gradient: 1.46 mmHg LVOT Diameter: 2.33 cmLVOT VTI: 18.44 cm LVOT Area: 4.26 cm^2LVOT SV:78.59 ml LVOT CO: 7.15 l/min LVOT CI: 3.26 l/min/m^2 Tricuspid Valve TR Velocity: 2.56 m/s TR Gradient: 26.11 mmHg Procedure Note Interface, External Ris In - 12/02/2018 3:54 PM CDT Transthoracic Echocardiography Report (TTE) Demographics Patient Name JETHRO DUMONT Date of Study 12/02/2018 Gender Male Visit Number [id number] Race Unknown Room Number 7108 Number Date of 1945 Referring Physician Lillian Campbell Age 73 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 Clinical History Former smoker, Afib, CAD, CHF, Severe sepsis HGB 7.8 HCT 24.7 % Height: 72 inches Weight: 97.07 kg (214 lbs) BSA: 2.19 m^2 BMI: 29.02 kg/m^2 HR: 91 bpm BP: 124/60 mmHg Summary 1. Normal LV size and function. LVEF is 55-60% 2. Diastology: Grade 1 diastolic dysfunction 3. RV is mildly enlarged. Normal RV function 4. No significant valvular heart disease 5. Mild TR. Estimated PASP is 37-42 mm Hg 6. No pericardial effusion noted Previous Study No prior exam available for comparison. Signature Findings Technical Quality: Good visualization Rhythm/BP Regular sinus rhythm during the exam. Left Ventricle The left ventricle is chamber size (by PSLAX dimension) is normal (male - LVIDd 4.2-5.8cm) . Normal LV wall thickness. All of the LV segments contract normally . Global LV systolic function normal . LVEF by Tyson's method of disk assessment is normal (55-60%) . The LVEF was measured using Tyson's bi-plane method of disk . Grade 1 diastolic dysfunction . Normal (cardiac index 2-3 L/min/m2) cardiac output state at rest is noted. Left Atrium LA size is severely enlarged (>48 ml/m2) . Right Ventricle RV chamber size is mildly enlarged . Global RV systolic function is normal . Right Atrium RA cavity size is normal . Atrial Septum Lipomatous hypertrophy of the interatrial septum is present. Aortic Valve Mild AoV cusp calcification. AoV cusp mobility is normal . Mitral Valve Mild mitral annular calcification. Mild MV leaflet thickening. Trace mitral regurgitation. Tricuspid Valve Mild tricuspid regurgitation. Estimated peak systolic PA pressure is 37-42 mmHg . Pulmonic Valve PV is not well visualized; function appears normal by Doppler visualized. Aorta Aortic root size (SInus of Valsalva diameter) is normal . Pericardium No significant pericardial effusion is visualized. IVC/SVC/PA/PV/Pleural The estimated RA pressure by IVC dynamics 5-10mmHg . Chambers/Structures Left Atrium LA Volume: 111.52 ml LA Area: 32.91 cm^2 LA Vol. Index: 51 ml/m^2 Left Ventricle LVIDd: 5.42 cm LV Septum Diastolic: 1.12 cm LV PW Diastolic: 1.03 cm LVEDV Tyson's:93.29 ml LVESV Tyson's:40.85 ml LVEF Tyson's: 56.2 % LVEDVI: 43 ml/m^2 LVESVI: 19 ml/m^2 LVOT Diameter: 2.33 cm Right Atrium RA Vol. (Sngl Plane): 41.32 ml Right Ventricle TAPSE: 1.88 cm Aorta Ao Root S of Adwoa.: 3.48 cm Doppler/Quantitative Measurements Mitral Valve MV Peak E-Wave: 0.93 m/s MV Peak A-Wave: 0.58 m/s E/A Ratio: 1.59 Peak Gradient: 3.43 mmHg Deceleration Time: 178.7 msec MV Solis. Peak: Tissue Doppler E' Septal Velocity: 0.06 m/s E/E': 16.62 E' Lateral Velocity: 0.06 m/s Aortic Valve Peak Velocity: 1.01 m/s Mean Velocity: 0.8 m/s Peak Gradient: 4.1 mmHg Mean Gradient: 2.7 mmHg AV Area (continuity): 3.4 cm^2 AV VTI: 23.11 cm AV DVI: 0.8 LVOT Peak Velocity: 0.8 m/s Peak Gradient: 2.55 mmHg Mean Velocity: 0.57 m/s Mean Gradient: 1.46 mmHg LVOT Diameter: 2.33 cm LVOT VTI: 18.44 cm LVOT Area: 4.26 cm^2 LVOT SV:78.59 ml LVOT CO: 7.15 l/min LVOT CI: 3.26 l/min/m^2 Tricuspid Valve TR Velocity: 2.56 m/s TR Gradient: 26.11 mmHg Performing Organization Address [facility]/Zipcode Phone Number [facility] Sodium, random urine (12/02/2018 11:57 AM CDT) Sodium Urine <20 meq/L [facility] Specimen Urine Narrative Performed At Reference Range: No Normals [facility] Performing Organization Address [facility] Phone Number [address] [address] [place] Osmolality, urine (12/02/2018 11:57 AM CDT) Osmolality, Ur 440 40-1,400 mOsm/kg [facility] Specimen Urine Performing Organization Address [facility] Phone Number [facility] [address] [place] [address] Creatinine, random urine (12/02/2018 11:57 AM CDT) Creatinine, Ur 65.1 mg/dL [facility] Specimen Urine Narrative Performed At Reference Range: No Normals [facility] Performing Organization Address [facility] Phone Number [address] [address] [phone] [place] Legionella antigen, urine (12/02/2018 11:56 AM CDT) Legionella Urine Antigen Negative - see [facility] commentComment: Negative [facility] for L. pneumophila serogroup 1 antigen, suggesting no recent or current infection with this serogroup. Legionellosis cannot be ruled out since other serogroups and species may cause disease. Specimen Urine Performing Organization Address [facility]/Zipcode Phone Number [address] [address] [place] RESPIRATORY PANEL [facility] (12/02/2018 11:55 AM CDT) Human Metapneumovirus Not detected Not detected, [facility] Equivocal [facility] Rhinovirus Not detected Not detected[facility] Influenza A Not detected Not detected, [facility] INFLUENZA A (NO SUBTYPE) Not detected, [facility] Influenza A subtype H1 Not detected, [facility] Influenza A Subtype H3 Not detected, [facility] Influenza A Subtype H1-2009 Not detected, [facility] Influenza B Not detected Not detected, [facility] Respiratory Syncytial Virus Not detected Not detected, [facility] Parainfluenza Virus 1 Not detected Not detected, [facility] Parainfluenza Virus 2 Not detected Not detected, [facility] Parainfluenza virus 3 Not detected Not detected, [facility] Parainfluenza Virus 4 Not detected Not detected, [facility] Adenovirus Not detected Not detected, [facility] Coronavirus 229E Not detected Not detected, [facility] Coronavirus HKU1 Not detected Not detected, [facility] Coronavirus NL63 Not detected Not detected, [facility] Coronavirus OC43 Not detected Not detected, [facility] Bordetella Pertussis Not detected Not detected, [facility] Chlamydophila Pneumoniae Not detected Not detected, [facility] Mycoplasma Pneumoniae Not detected Not detected, [facility] Specimen Nasopharyngeal - Expectorated Narrative Performed At Other viruses and bacteria not targeted by [facility] this PCR panel cannot be excluded; therefore clinical correlation and follow up of serology, culture results, and other molecular studies is required. The results are not intended to be used as the sole means for clinical diagnosis or patient management decisions. This sample was tested at the [facility] using the [employer] Respiratory Panel. It is FDA cleared and has been verified and approved by the [facility] for clinical use on nasal swab specimens. Performing Organization Address City/State/Zipcode Phone Number [address] [phone] [place] Strep pneumoniae antigen (12/02/2018 11:55 AM CDT) Strep pneumoniae Presumptive negative Presumptive negative [facility] Antigen for pneumococcal for pneumococcal [facility] pneumonia - see comment pneumonia - see CENTER comment, Presumptive negative for pneumococcal meningitis - see comment Specimen Urine Narrative Performed At Presumptive negative for pneumococcal [facility] pneumonia, suggesting no current or recent pneumococcal infection. Infection due to S. pneumoniae cannot be ruled out since the antigen present in the sample may be below the detection limit of the test. Performing Organization Address [facility] Phone Number [address] [phone] [place] Rapid Influenza A&B Screen (12/02/2018 11:55 AM CDT) Rapid Influenza A NEGATIVE LABORATORY Negative, Inconclusive [facility] Antigen FINDING [facility] Rapid influenza B NEGATIVE LABORATORY Negative, Inconclusive [facility] Antigen FINDING [facility] Specimen Nasal - Expectorated Performing Organization Address [facility] Phone Number [address] [phone] [place] POC-Lactic Acid, Venous (12/02/2018 9:27 AM CDT) POC-Lactic Acid, Venous 2.5 (H)Comment: 0.9 - 1.7 mmol/L [facility] TESTED AT [address] [address] Specimen Blood Performing Organization Address [facility] Phone Number [address] [phone] [place] POCT-HEMATOCRIT (12/02/2018 9:23 AM CDT) POC-Hematocrit 23 (L)Comment: TESTED AT 40 - 50 % [address] [address] Specimen Blood Performing Organization Address City/[facility]/Zipcode Phone Number [address] [address] [place] POCT-HEMOGLOBIN (12/02/2018 9:23 AM CDT) POC-Hemoglobin 7.8 (L)Comment: TESTED AT 13.0 - 16.8 g/dL [address] [address]UIHXPN AT [address] [address] Specimen Blood Performing Organization Address [facility] Phone Number [address] [address] [place] POCT-GLUCOSE (12/02/2018 9:23 AM CDT) POC-Glucose 413 (HH)Comment: TESTED AT 70 - 110 mg/dL [address] [address] Specimen Blood Performing Organization Address [facility] Phone Number [address] [address] [place] POC-Sodium (12/02/2018 9:23 AM CDT) POC-Sodium 130 (L)Comment: TESTED AT 135 - 148 meq/L [address] [place] [address] Specimen Blood Performing Organization Address City/[facility] Phone Number [address] [address] [phone] [place] POC-Potassium (12/02/2018 9:23 AM CDT) POC-Potassium 5.4Comment: TESTED AT [facility] 3.6 - 5.5 meq/L [address] [address] Specimen Blood Performing Organization Address [facility]/Zipcode Phone Number [address] [address] [place] POC-Calcium ionized (12/02/2018 9:23 AM CDT) POC-Calcium Ionized 1.11 (L)Comment: 1.12 - 1.27 mmol/L [facility] TESTED AT [address] [address] Specimen Blood Performing Organization Address City/[facility] Phone Number [address] [address] [place] POC-Blood gases, arterial (12/02/2018 9:23 AM CDT) Temp. Celsius-POC 37.0 [facility] FIO2-POC Comment: TESTED AT [address] [address] pH, Arterial-POC 7.357 7.350 - 7.450 [facility] PCO2, Arterial-POC 49.5 (H) 35.0 - 45.0 mm Hg [facility] PO2, Arterial-POC 28.0 (LL) 80.0 - 90.0 mm Hg [facility] SO2, Arterial-POC 49.0 (L) 96.0 - 97.0 % [facility] HCO3, Arterilal-POC 27.7 21.0 - 29.0 meq/L [facility] BE, Arterial-POC 2.0 -2.0 - 3.0 meq/L [facility] Specimen Blood Performing Organization Address City/[facility] Phone Number [address] [address] CENTER aPTT (12/02/2018 9:08 AM CDT) PTT 28.1 22.5 - 36.0 seconds [facility] Specimen Blood Performing Organization Address City/[facility] Phone Number [address] [address] [place] Urine culture (12/02/2018 8:24 AM CDT) Result No growth [facility] Specimen Urine Performing Organization Address City/State/Zipcode Phone Number [facility] [address] [place] [address] jp GUZMAN (12/02/2018 3:48 AM CDT) ABO Grouping O [facility] Rh Factor NEG [facility] Specimen Blood Performing Organization Address City/[facility]/Zipcode Phone Number [facility] [address] [place] [address] [phone] after 12/21/2017 Insurance Payer Benefit Plan / Group Subscriber ID Type Phone Address [employer] xxxxxxxxx Maps Contracted Advance Directives For more information, please contact:[facility] [place], [place] [phone] Code Status Date Activated Date Inactivated Comments Partial Code 12/06/2018 11:02 AM 12/10/2018 8:09 PM This code status was determined by: Patient Drug Protocol After Arrest Occurs? No Mechanical Ventilation with Intubation? No Bag/Mask? No Internal/External Pacemaker? No Transfer to Critical Care? Yes Chest Compressions? No Defibrillation/Cardioversion? No DNR 12/05/2018 11:29 PM 12/06/2018 11:02 AM Full Code 12/01/2018 11:53 PM 12/05/2018 11:29 PM This code status was determined by: Patient
--- OUTSIDE RECORDS SUMMARY | 2018-12-22 22:17 | XMS REPORT ---
:1945 Author Organization [facility] Address [address] [place] [address] Dr. Boyer [address] [place] [id number] Care Team Providers Name Role Phone YOUNG ROBBINS Unavailable Unavailable Problems This patient has no known problems. Allergies, Adverse Reactions, Alerts This patient has no known allergies or adverse reactions. Medications This patient has no known medications. Results Test Description Test Time Test Comments Text Results Atomic Results Result Comments BLOOD CULTURE 2018-12-11 02:01:00 Test Item Value Reference Range Comments CULTURE (BEAKER) (test cgus=0499) No growth in 5 days BLOOD [id number] 02:01:00 Test Item Value Reference Range Comments CULTURE (BEAKER) (test nuwp=7828) No growth in 5 days POCT-GLUCOSE [id number] 17:19:00 Test Item Value Reference Range Comments POC-GLUCOSE METER (BEAKER) 203 mg/dL 70-110 TESTED AT [address] (test fkbg=7252) [facility] [address] POCT-GLUCOSE [id number] 13:33:00 Test Item Value Reference Range Comments POC-GLUCOSE METER (BEAKER) 239 mg/dL 70-110 TESTED AT [address] (test xuzf=5798) [facility] [address] CBC W/PLT COUNT & AUTO [id number] 11:15:00 Test Item Value Reference Range Comments WHITE BLOOD CELL COUNT (BEAKER) (test hghf=744) 7.9 K/ L 3.5-10.5 RED BLOOD CELL COUNT (BEAKER) (test uesf=138) 3.15 M/ L 4.63-6.08 HEMOGLOBIN (BEAKER) (test tgfh=833) 9.1 GM/DL 13.7-17.5 HEMATOCRIT (BEAKER) (test slzy=257) 28.5 % 40.1-51.0 MEAN CORPUSCULAR VOLUME (BEAKER) (test jhca=474) 90.5 fL 79.0-92.2 MEAN CORPUSCULAR HEMOGLOBIN (BEAKER) (test 28.9 pg 25.7-32.2 nfwu=180) MEAN CORPUSCULAR HEMOGLOBIN CONC (BEAKER) (test 31.9 GM/DL 32.3-36.5 fyyy=379) RED CELL DISTRIBUTION WIDTH (BEAKER) (test 14.6 % 11.6-14.4 nnuj=425) PLATELET COUNT (BEAKER) (test rqjz=196) 288 K/CU MM 150-450 MEAN PLATELET VOLUME (BEAKER) (test onwy=919) 10.6 fL 9.4-12.4 NUCLEATED RED BLOOD CELLS (BEAKER) (test 0 /100 WBC 0-0 dezs=734) (CELLAVISION MANUAL DIFF)2018-12-10 11:15:00 Test Item Value Reference Range Comments NEUTROPHILS - REL (CELLAVISION)(BEAKER) (test 85 % uwrd=4499) LYMPHOCYTES - REL (CELLAVISION)(BEAKER) (test 6 % huvy=5084) MONOCYTES - REL (CELLAVISION)(BEAKER) (test 1 % fykq=2778) EOSINOPHILS - REL (CELLAVISION)(BEAKER) (test 1 % wbts=1178) BASOPHILS - REL (CELLAVISION)(BEAKER) (test 1 % vhsx=9055) MYELOCYTES - REL (CELLAVISION)(BEAKER) (test 5 % 0-0 vehw=2553) ATYPICAL LYMPHOCYTES - REL (CELLAVISION)(BEAKER) 1 % 0-0 (test uvig=5182) NEUTROPHILS - ABS (CELLAVISION)(BEAKER) (test 6.72 K/ul 1.78-5.38 xzfj=5493) LYMPHOCYTES - ABS (CELLAVISION)(BEAKER) (test 0.47 K/ul 1.32-3.57 npwo=4920) MONOCYTES - ABS (CELLAVISION)(BEAKER) (test 0.08 K/uL 0.30-0.82 cyxj=7999) EOSINOPHILS - ABS (CELLAVISION)(BEAKER) (test 0.08 K/uL 0.04-0.54 tfbo=8557) BASOPHILS - ABS (CELLAVISION)(BEAKER) (test 0.08 K/uL 0.01-0.08 hqnj=8192) MYELOCYTES-ABS (CELLAVISION)(BEAKER) (test 0.40 K/uL 0.00-0.00 ovrx=1572) ATYPICAL LYMPHOCYTES - ABS (CELLAVISION)(BEAKER) 0.08 K/uL 0.00-0.00 (test fyca=3698) TOTAL COUNTED (BEAKER) (test moee=6142) 100 SMUDGE CELLS (BEAKER) (test beml=2352) Present GIANT PLATELETS (BEAKER) (test hnkb=111) Present POLYCHROMATOPHILLIC RBCS(BEAKER) (test slxi=272) 1+ few HYPOCHROMIA (BEAKER) (test ytki=893) 1+ few PLATELET CONCENTRATION (CELLAVISION)(BEAKER) (test Adequate pwhi=2693) Received comment: User comments: Slide comments:BASIC METABOLIC [id number] 08:01:00 Test Item Value Reference Range Comments SODIUM (BEAKER) (test 139 meq/L 136-145 rimt=233) POTASSIUM (BEAKER) (test 4.1 meq/L 3.5-5.1 yhzg=229) CHLORIDE (BEAKER) (test 96 meq/L 98-107 pwlz=259) CO2 (BEAKER) (test 38 meq/L 22-29 krqx=264) BLOOD UREA NITROGEN 22 mg/dL 7-21 (BEAKER) (test kyyp=736) CREATININE (BEAKER) (test 1.05 mg/dL 0.57-1.25 yfiz=822) GLUCOSE RANDOM (BEAKER) 133 mg/dL 70-105 (test sixz=061) CALCIUM (BEAKER) (test 8.6 mg/dL 8.4-10.2 mgzs=761) EGFR (BEAKER) (test mL/min/1.73 sq m INSUFFICIENT CLINICAL DATA edgl=0393) TO CALCULATE ESTIMATED GFR. [id number] 07:59:00 Test Item Value Reference Range Comments MAGNESIUM (BEAKER) (test drpu=866) 1.4 mg/dL 1.6-2.6 POCT-GLUCOSE [id number] 07:45:00 Test Item Value Reference Range Comments POC-GLUCOSE METER (BEAKER) 142 mg/dL 70-110 TESTED AT [address] (test pukk=1813) [facility] [address] POCT-GLUCOSE [id number] 22:03:00 Test Item Value Reference Range Comments POC-GLUCOSE METER (BEAKER) 190 mg/dL 70-110 TESTED AT [address] (test rsgy=6230) [facility] [address] POCT-GLUCOSE [id number] 17:27:00 Test Item Value Reference Range Comments POC-GLUCOSE METER (BEAKER) 248 mg/dL 70-110 TESTED AT [address] (test kbdj=8619) [facility] [address] POCT-GLUCOSE [id number] 15:04:00 Test Item Value Reference Range Comments POC-GLUCOSE METER (BEAKER) 391 mg/dL 70-110 TESTED AT [address] (test cnds=9011) [facility] [address] POCT-GLUCOSE [id number] 12:31:00 Test Item Value Reference Range Comments POC-GLUCOSE METER (BEAKER) 217 mg/dL 70-110 TESTED AT [address] (test alut=7571) [facility] [address] CBC W/PLT COUNT & AUTO [id number] 10:07:00 Test Item Value Reference Range Comments WHITE BLOOD CELL COUNT (BEAKER) (test pxao=557) 7.4 K/ L 3.5-10.5 RED BLOOD CELL COUNT (BEAKER) (test iehp=470) 2.86 M/ L 4.63-6.08 HEMOGLOBIN (BEAKER) (test mwpr=527) 8.4 GM/DL 13.7-17.5 HEMATOCRIT (BEAKER) (test vlwq=927) 26.0 % 40.1-51.0 MEAN CORPUSCULAR VOLUME (BEAKER) (test tkmp=986) 90.9 fL 79.0-92.2 MEAN CORPUSCULAR HEMOGLOBIN (BEAKER) (test 29.4 pg 25.7-32.2 kptv=502) MEAN CORPUSCULAR HEMOGLOBIN CONC (BEAKER) (test 32.3 GM/DL 32.3-36.5 olwu=169) RED CELL DISTRIBUTION WIDTH (BEAKER) (test 14.8 % 11.6-14.4 qaag=539) PLATELET COUNT (BEAKER) (test ebvf=084) 242 K/CU MM 150-450 MEAN PLATELET VOLUME (BEAKER) (test vdle=733) 10.7 fL 9.4-12.4 NUCLEATED RED BLOOD CELLS (BEAKER) (test 0 /100 WBC 0-0 dodg=842) (CELLAVISION MANUAL DIFF)2018-12-09 10:07:00 Test Item Value Reference Range Comments NEUTROPHILS - REL (CELLAVISION)(BEAKER) (test 76 % zepd=0477) LYMPHOCYTES - REL (CELLAVISION)(BEAKER) (test 11 % arqo=3467) MONOCYTES - REL (CELLAVISION)(BEAKER) (test 4 % xgod=4041) EOSINOPHILS - REL (CELLAVISION)(BEAKER) (test 2 % nzit=4346) BASOPHILS - REL (CELLAVISION)(BEAKER) (test 1 % wkbp=1434) MYELOCYTES - REL (CELLAVISION)(BEAKER) (test 2 % 0-0 riyk=1818) PROMYELOCYTES - REL (CELLAVSION)(BEAKER) (test 3 % 0-0 yqed=9781) ATYPICAL LYMPHOCYTES - REL (CELLAVISION)(BEAKER) 1 % 0-0 (test xkop=8625) NEUTROPHILS - ABS (CELLAVISION)(BEAKER) (test 5.62 K/ul 1.78-5.38 pxmb=9321) LYMPHOCYTES - ABS (CELLAVISION)(BEAKER) (test 0.81 K/ul 1.32-3.57 hmrc=9134) MONOCYTES - ABS (CELLAVISION)(BEAKER) (test 0.30 K/uL 0.30-0.82 aznl=5980) EOSINOPHILS - ABS (CELLAVISION)(BEAKER) (test 0.15 K/uL 0.04-0.54 zefp=1807) BASOPHILS - ABS (CELLAVISION)(BEAKER) (test 0.07 K/uL 0.01-0.08 bpfz=5626) MYELOCYTES-ABS (CELLAVISION)(BEAKER) (test 0.15 K/uL 0.00-0.00 yxho=0657) PROMYELOCYTES - ABS (CELLAVISION)(BEAKER) (test 0.22 K/uL 0.00-0.00 bysz=5275) ATYPICAL LYMPHOCYTES - ABS (CELLAVISION)(BEAKER) 0.07 K/uL 0.00-0.00 (test dxdj=3224) TOTAL COUNTED (BEAKER) (test jahz=7648) 100 WBC MORPHOLOGY (BEAKER) (test lglc=606) Normal PLT MORPHOLOGY (BEAKER) (test pmrm=871) Normal ANISOCYTOSIS (BEAKER) (test rbln=123) 1+ few MICROCYTES (BEAKER) (test nxge=191) 1+ few ARTIFACT (CELLAVISION)(BEAKER) (test zudd=4727) Present PLATELET CONCENTRATION (CELLAVISION)(BEAKER) (test Adequate yufj=1219) Received comment: User comments: Slide comments:POCT-GLUCOSE [id number] 08: 19:00 Test Item Value Reference Range Comments POC-GLUCOSE METER (BEAKER) 159 mg/dL 70-110 TESTED AT [facility] [address] [facility] (test zqpn=8831) [facility] [address] BASIC METABOLIC [id number] 03:52:00 Test Item Value Reference Range Comments SODIUM (BEAKER) (test 135 meq/L 136-145 dzog=256) POTASSIUM (BEAKER) (test 3.9 meq/L 3.5-5.1 tulm=781) CHLORIDE (BEAKER) (test 97 meq/L 98-107 qest=606) CO2 (BEAKER) (test 30 meq/L 22-29 qkqu=322) BLOOD UREA NITROGEN 25 mg/dL 7-21 (BEAKER) (test tevd=635) CREATININE (BEAKER) (test 1.13 mg/dL 0.57-1.25 fzha=926) GLUCOSE RANDOM (BEAKER) 151 mg/dL 70-105 (test gnvd=915) CALCIUM (BEAKER) (test 8.3 mg/dL 8.4-10.2 npoh=470) EGFR (BEAKER) (test mL/min/1.73 sq m INSUFFICIENT CLINICAL DATA uqnp=7365) TO CALCULATE ESTIMATED GFR. [id number] 03:49:00 Test Item Value Reference Range Comments MAGNESIUM (BEAKER) (test wbnc=026) 1.5 mg/dL 1.6-2.6 VANCOMYCIN LEVEL, [id number] 03:48:00 Test Item Value Reference Range Comments VANCOMYCIN TROUGH (BEAKER) (test cnvq=704) 17.8 ug/mL 10.0-20.0 POCT-GLUCOSE [id number] 22:44:00 Test Item Value Reference Range Comments POC-GLUCOSE METER (BEAKER) 196 mg/dL 70-110 TESTED AT [address] (test ocax=5809) [place] [address] POCT-GLUCOSE [id number] 16:58:00 Test Item Value Reference Range Comments POC-GLUCOSE METER (BEAKER) 276 mg/dL 70-110 TESTED AT [address] (test fjkn=6593) [place] [address] POCT-GLUCOSE [id number] 12:49:00 Test Item Value Reference Range Comments POC-GLUCOSE METER (BEAKER) 298 mg/dL 70-110 TESTED AT [address] (test vgjp=3103) [place] [address] [id number] 09:57:00 Test Item Value Reference Range Comments PROCALCITONIN (BEAKER) (test xtxz=8427) 7.07 ng/mL <0.05 SEPSIS RISK (ng/mL)Low: 0.05-0.50Intermediate: 0.51-2.00High: & gt;=2.01POCT-GLUCOSE [id number] 08:05:00 Test Item Value Reference Range Comments POC-GLUCOSE METER (BEAKER) 157 mg/dL 70-110 TESTED AT [address] (test ktuh=2690) [place] [address] BASIC METABOLIC [id number] 05:38:00 Test Item Value Reference Range Comments SODIUM (BEAKER) (test 138 meq/L 136-145 trls=093) POTASSIUM (BEAKER) (test 4.3 meq/L 3.5-5.1 Specimen slightly ojpn=284) hemolyzed CHLORIDE (BEAKER) (test 103 meq/L 98-107 zdzy=869) CO2 (BEAKER) (test 29 meq/L 22-29 zuyr=085) BLOOD UREA NITROGEN 28 mg/dL 7-21 (BEAKER) (test qqel=825) CREATININE (BEAKER) (test 1.08 mg/dL 0.57-1.25 Specimen slightly acpd=991) hemolyzed GLUCOSE RANDOM (BEAKER) 120 mg/dL 70-105 (test bldp=395) CALCIUM (BEAKER) (test 8.5 mg/dL 8.4-10.2 mlib=088) EGFR (BEAKER) (test mL/min/1.73 sq m INSUFFICIENT CLINICAL DATA lngg=7584) TO CALCULATE ESTIMATED GFR. [id number] 05:21:00 Test Item Value Reference Range Comments MAGNESIUM (BEAKER) (test 1.6 mg/dL 1.6-2.6 Specimen slightly hemolyzed lded=665) CBC W/PLT COUNT & AUTO [id number] 05:01:00 Test Item Value Reference Range Comments WHITE BLOOD CELL COUNT (BEAKER) (test nmxk=847) 11.0 K/ L 3.5-10.5 RED BLOOD CELL COUNT (BEAKER) (test fomt=727) 2.37 M/ L 4.63-6.08 HEMOGLOBIN (BEAKER) (test qhll=913) 6.9 GM/DL 13.7-17.5 HEMATOCRIT (BEAKER) (test pcam=052) 22.2 % 40.1-51.0 MEAN CORPUSCULAR VOLUME (BEAKER) (test vupl=515) 93.7 fL 79.0-92.2 MEAN CORPUSCULAR HEMOGLOBIN (BEAKER) (test 29.1 pg 25.7-32.2 wejr=757) MEAN CORPUSCULAR HEMOGLOBIN CONC (BEAKER) (test 31.1 GM/DL 32.3-36.5 cjqx=733) RED CELL DISTRIBUTION WIDTH (BEAKER) (test 15.6 % 11.6-14.4 cdvo=613) PLATELET COUNT (BEAKER) (test fmoq=290) 214 K/CU MM 150-450 MEAN PLATELET VOLUME (BEAKER) (test qjdm=936) 10.9 fL 9.4-12.4 NUCLEATED RED BLOOD CELLS (BEAKER) (test 0 /100 WBC 0-0 tsbd=872) NEUTROPHILS RELATIVE PERCENT (BEAKER) (test 81 % kiua=467) LYMPHOCYTES RELATIVE PERCENT (BEAKER) (test 9 % uffa=737) MONOCYTES RELATIVE PERCENT (BEAKER) (test 8 % bvsc=208) EOSINOPHILS RELATIVE PERCENT (BEAKER) (test 1 % anod=906) BASOPHILS RELATIVE PERCENT (BEAKER) (test 0 % ejlo=915) NEUTROPHILS ABSOLUTE COUNT (BEAKER) (test 8.86 K/ L 1.78-5.38 yguf=880) LYMPHOCYTES ABSOLUTE COUNT (BEAKER) (test 0.93 K/ L 1.32-3.57 lejs=291) MONOCYTES ABSOLUTE COUNT (BEAKER) (test 0.86 K/ L 0.30-0.82 ztsb=414) EOSINOPHILS ABSOLUTE COUNT (BEAKER) (test 0.11 K/ L 0.04-0.54 yqeh=763) BASOPHILS ABSOLUTE COUNT (BEAKER) (test 0.02 K/ L 0.01-0.08 yvqh=590) IMMATURE GRANULOCYTES-RELATIVE PERCENT (BEAKER) 2 % 0-1 (test pijr=1744) POCT-GLUCOSE [id number] 21:59:00 Test Item Value Reference Range Comments POC-GLUCOSE METER (BEAKER) 199 mg/dL 70-110 TESTED AT [address] (test qjzv=6896) [place] [address] POCT-GLUCOSE [id number] 17:41:00 Test Item Value Reference Range Comments POC-GLUCOSE METER (BEAKER) 117 mg/dL 70-110 TESTED AT [address] (test xokt=7629) [place] [address] POCT-GLUCOSE [id number] 12:26:00 Test Item Value Reference Range Comments POC-GLUCOSE METER (BEAKER) 171 mg/dL 70-110 TESTED AT [address] (test qpja=9129) [place] [address] BLOOD [id number] 12:01:00 Test Item Value Reference Range Comments CULTURE (BEAKER) (test iysp=0315) No growth in 5 days BLOOD [id number] 12:01:00 Test Item Value Reference Range Comments CULTURE (BEAKER) (test zrmz=7320) No growth in 5 days POCT-GLUCOSE [id number] 06:35:00 Test Item Value Reference Range Comments POC-GLUCOSE METER (BEAKER) 177 mg/dL 70-110 TESTED AT [address] (test cpvy=9589) [place] [id number] BASIC METABOLIC [id number] 03:30:00 Test Item Value Reference Range Comments SODIUM (BEAKER) (test 135 meq/L 136-145 csmp=985) POTASSIUM (BEAKER) (test 4.4 meq/L 3.5-5.1 dnta=696) CHLORIDE (BEAKER) (test 103 meq/L 98-107 hwmv=118) CO2 (BEAKER) (test 26 meq/L 22-29 nxwe=715) BLOOD UREA NITROGEN 37 mg/dL 7-21 (BEAKER) (test odej=715) CREATININE (BEAKER) (test 1.33 mg/dL 0.57-1.25 ojdg=964) GLUCOSE RANDOM (BEAKER) 141 mg/dL 70-105 (test nmgq=236) CALCIUM (BEAKER) (test 8.2 mg/dL 8.4-10.2 lbll=626) EGFR (BEAKER) (test mL/min/1.73 sq m INSUFFICIENT CLINICAL DATA bmjf=5638) TO CALCULATE ESTIMATED GFR. [id number] 03:27:00 Test Item Value Reference Range Comments MAGNESIUM (BEAKER) (test svrp=283) 2.1 mg/dL 1.6-2.6 CBC W/PLT COUNT & AUTO [id number] 02:48:00 Test Item Value Reference Range Comments WHITE BLOOD CELL COUNT (BEAKER) (test llkd=865) 15.1 K/ L 3.5-10.5 RED BLOOD CELL COUNT (BEAKER) (test xcms=049) 2.42 M/ L 4.63-6.08 HEMOGLOBIN (BEAKER) (test fonq=046) 7.1 GM/DL 13.7-17.5 HEMATOCRIT (BEAKER) (test wkgq=727) 22.4 % 40.1-51.0 MEAN CORPUSCULAR VOLUME (BEAKER) (test cmdz=832) 92.6 fL 79.0-92.2 MEAN CORPUSCULAR HEMOGLOBIN (BEAKER) (test 29.3 pg 25.7-32.2 osqh=266) MEAN CORPUSCULAR HEMOGLOBIN CONC (BEAKER) (test 31.7 GM/DL 32.3-36.5 egje=671) RED CELL DISTRIBUTION WIDTH (BEAKER) (test 15.6 % 11.6-14.4 sqmu=959) PLATELET COUNT (BEAKER) (test khhe=087) 190 K/CU MM 150-450 MEAN PLATELET VOLUME (BEAKER) (test yosh=367) 10.0 fL 9.4-12.4 NUCLEATED RED BLOOD CELLS (BEAKER) (test 0 /100 WBC 0-0 aljs=671) NEUTROPHILS RELATIVE PERCENT (BEAKER) (test 86 % aewt=418) LYMPHOCYTES RELATIVE PERCENT (BEAKER) (test 4 % uyea=826) MONOCYTES RELATIVE PERCENT (BEAKER) (test 8 % rsrh=294) EOSINOPHILS RELATIVE PERCENT (BEAKER) (test 1 % tdjt=391) BASOPHILS RELATIVE PERCENT (BEAKER) (test 0 % jzyl=796) NEUTROPHILS ABSOLUTE COUNT (BEAKER) (test 13.00 K/ L 1.78-5.38 kqjg=397) LYMPHOCYTES ABSOLUTE COUNT (BEAKER) (test 0.66 K/ L 1.32-3.57 lhrr=375) MONOCYTES ABSOLUTE COUNT (BEAKER) (test 1.20 K/ L 0.30-0.82 amwh=566) EOSINOPHILS ABSOLUTE COUNT (BEAKER) (test 0.07 K/ L 0.04-0.54 qsbe=634) BASOPHILS ABSOLUTE COUNT (BEAKER) (test 0.03 K/ L 0.01-0.08 fmej=953) IMMATURE GRANULOCYTES-RELATIVE PERCENT (BEAKER) 1 % 0-1 (test wezx=9760) POCT-GLUCOSE [id number] 01:00:00 Test Item Value Reference Range Comments POC-GLUCOSE METER (BEAKER) 167 mg/dL 70-110 TESTED AT [address] (test fizx=7391) [facility] [address] POCT-GLUCOSE [id number] 21:31:00 Test Item Value Reference Range Comments POC-GLUCOSE METER (BEAKER) 201 mg/dL 70-110 TESTED AT [address] (test twut=2777) [place] [id number] RAD, CHEST, PA OR AP, 1 [id number] 20:12:00VAT/Infusion Therapy Nurse to Call Radiology Department when patient is readyReason for exam:->SPPICC line insertion/verify placementShould this be performed at the bedside?-> YesAddendum BeginsREPORT STATUS:A Addendum: An additional image was acquired. Tip of the right upper extremity central line projects over the superior vena cava. Signed: Mickey Espinal MDReport Verified Date/Time: 12/06/2018 20:12:07 Reading Location: [address] Reading RoomAddendum EndsAddendum BeginsREPORT STATUS:A Addendum: Examination was repeated. Tip of the right upper extremity central line remains indistinct. Signed: Mickey Espinal Verified Date/Time: 03/2019 20:05:52 Reading Location: [address] Reading RoomAddendum EndsFINAL REPORT EXAMINATION: AP PORTABLE CHEST RADIOGRAPH CLINICAL INDICATION: Central line placement IMPRESSION: Compared with 12/05/2018. Distal segment of the new right upper extremity central line projects along the expected course of the superior vena cava. However thetip is obscured. Consider repeat imaging to confirm appropriate positioning. Tip of the nasogastric tube extends below the inferior margin of today's study. Cardiac and mediastinal contours are grosslystable. Opacities are again noted in both lungs, most conspicuous at the lung lung bases which may reflect atelectasis given the morphology and distribution. However, pulmonary edema or an underlying pneumonia cannot be excluded. Recommend clinical correlation. Note : Suboptimal visualization of the right upper extremity central line discussed one of the technologist from the radiology department. Theexamination will be repeated and an addendum will be added to this report. Signed: Mickey Espinal Verified Date/Time: 12/06/2018 19:07:07 Reading Location: [address] Reading Room [id number] 18:52:00 Test Item Value Reference Range Comments PROCALCITONIN ([employer]) (test fzpj=6407) 32.61 ng/mL <0.05 SEPSIS RISK (ng/mL)Low: 0.05-0.50Intermediate: 0.51-2.00High: & gt;=2.01POCT-GLUCOSE [id number] 18:02:00 Test Item Value Reference Range Comments POC-GLUCOSE METER ([employer]) 190 mg/dL 70-110 TESTED AT [facility] [address] [place] [address] (test bknf=6050) [facility] [address] CBC W/PLT COUNT & AUTO [id number] 17:53:00 Test Item Value Reference Range Comments WHITE BLOOD CELL COUNT ([employer]) (test cyrx=896) 19.3 K/ L 3.5-10.5 RED BLOOD CELL COUNT (BEAKER) (test zyuy=765) 2.44 M/ L 4.63-6.08 HEMOGLOBIN (BEAKER) (test awfi=310) 7.2 GM/DL 13.7-17.5 HEMATOCRIT (BEAKER) (test sfas=092) 22.8 % 40.1-51.0 MEAN CORPUSCULAR VOLUME (BEAKER) (test vpfb=357) 93.4 fL 79.0-92.2 MEAN CORPUSCULAR HEMOGLOBIN (BEAKER) (test 29.5 pg 25.7-32.2 bdwi=628) MEAN CORPUSCULAR HEMOGLOBIN CONC (BEAKER) (test 31.6 GM/DL 32.3-36.5 sagd=128) RED CELL DISTRIBUTION WIDTH (BEAKER) (test 15.9 % 11.6-14.4 exxz=323) PLATELET COUNT (BEAKER) (test xffx=998) 208 K/CU MM 150-450 MEAN PLATELET VOLUME (BEAKER) (test hlfp=757) 10.7 fL 9.4-12.4 NUCLEATED RED BLOOD CELLS (BEAKER) (test 0 /100 WBC 0-0 tmns=892) (CELLAVISION MANUAL DIFF)2018-12-06 17:53:00 Test Item Value Reference Range Comments NEUTROPHILS - REL (CELLAVISION)(BEAKER) (test 89 % hdaf=2138) LYMPHOCYTES - REL (CELLAVISION)(BEAKER) (test 2 % bzab=7538) MONOCYTES - REL (CELLAVISION)(BEAKER) (test 2 % eiup=9002) BANDS - REL (CELLAVISION)(BEAKER) (test 7 % 0-10 tnjt=0008) NEUTROPHILS - ABS (CELLAVISION)(BEAKER) (test 17.18 K/ul 1.78-5.38 cosq=8563) LYMPHOCYTES - ABS (CELLAVISION)(BEAKER) (test 0.39 K/ul 1.32-3.57 vkvr=9313) MONOCYTES - ABS (CELLAVISION)(BEAKER) (test 0.39 K/uL 0.30-0.82 vasc=5107) BANDS - ABS (CELLAVISION)(BEAKER) (test 1.35 K/uL 0.00-0.80 mqou=1348) TOTAL COUNTED (BEAKER) (test mtta=5138) 100 SMUDGE CELLS (BEAKER) (test ktcl=0292) Present GIANT PLATELETS (BEAKER) (test zoxx=964) Present POLYCHROMATOPHILLIC RBCS(BEAKER) (test dftw=191) 3+ many HYPOCHROMIA (BEAKER) (test hihg=300) 1+ few ANISOCYTOSIS (BEAKER) (test xhkp=784) 1+ few MICROCYTES (BEAKER) (test ezbr=693) 1+ few POIKILOCYTES (BEAKER) (test xppm=982) 1+ few PLATELET CONCENTRATION (CELLAVISION)(BEAKER) Adequate (test pkeu=9962) Received comment: User comments: Slide comments:COMPREHENSIVE METABOLIC [id number] 17:41:00 Test Item Value Reference Range Comments TOTAL PROTEIN (BEAKER) 5.5 gm/dL 6.0-8.3 (test qkei=998) ALBUMIN (BEAKER) (test 2.5 g/dL 3.5-5.0 errd=8802) ALKALINE PHOSPHATASE 172 U/L 40-150 (BEAKER) (test jscd=345) BILIRUBIN TOTAL (BEAKER) 0.2 mg/dL 0.2-1.2 (test efba=038) SODIUM (BEAKER) (test 134 meq/L 136-145 shgu=261) POTASSIUM (BEAKER) (test 4.8 meq/L 3.5-5.1 lctf=108) CHLORIDE (BEAKER) (test 101 meq/L 98-107 invm=739) CO2 (BEAKER) (test 26 meq/L 22-29 hexn=874) BLOOD UREA NITROGEN 39 mg/dL 7-21 (BEAKER) (test qqmr=759) CREATININE (BEAKER) (test 1.55 mg/dL 0.57-1.25 iqnq=166) GLUCOSE RANDOM (BEAKER) 175 mg/dL 70-105 (test ebzc=330) CALCIUM (BEAKER) (test 8.3 mg/dL 8.4-10.2 wjmn=463) AST (SGOT) (BEAKER) (test 23 U/L 5-34 gidn=564) ALT (SGPT) (BEAKER) (test 18 U/L 6-55 jcuq=224) EGFR (BEAKER) (test mL/min/1.73 sq m INSUFFICIENT CLINICAL DATA zehq=2951) TO CALCULATE ESTIMATED GFR. TROPONIN [id number] 17:41:00 Test Item Value Reference Range Comments TROPONIN I (CLARA) (test vmyn=235) 0.02 ng/mL 0.00-0.03 Troponin I (TnI) levels must be interpreted in the context of the presenting symptoms and the clinical findings. Elevated TnI levels indicate myocardial damage, but are not specific for ischemic heart disease. Elevated TnI levels are seen in patients with other cardiac conditions (including myocarditis and congestive heart failure), and slight TnI elevations occur in patients with other conditions, including sepsis, renal failure, acidosis, acute neurological disease, and persistent tachyarrhythmia.PROTHROMBIN [id number] 17:35:00 Test Item Value Reference Range Comments PROTIME (CLARA) (test qnrk=479) 16.0 seconds 11.7-14.7 INR (KIAAKER) (test knqd=734) 1.4 <=5.9 RECOMMENDED COUMADIN/WARFARIN INR THERAPY RANGESSTANDARD DOSE: 2.0 - 3.0 Includes: PROPHYLAXIS forvenous thrombosis, systemic embolization; TREATMENT for venous thrombosis and/or pulmonary embolus.HIGH RISK: Target INR is 2.5-3.5 for patients with mechanical heart valves.LACTIC ACID, [id number] 17:28:00 Test Item Value Reference Range Comments LACTATE BLOOD VENOUS (2) (CLARA) (test 0.6 mmol/L 0.5-2.2 cokv=7013) CT, [id number] 15:53:00FINAL REPORT CT abdomen and pelvis without contrast History: Abdominal pain and fever Comparison: 2018 Technique: serial axial imaging was performed without intravenous contrast as per departmental protocol. Multiplanar images are reconstructed and reviewed when indicated. This CT examination is performed using one or more of the following dose reduction techniques: Automated exposure control, adjustment of the mA and /or kV according to patient size, and/or use of iterative reconstruction technique. Findings:Evaluation limited by lack of intravenous contrast. Interval [...] fluid or adenopathy. No aggressive osseous lesion. Impression:Interval insertion of nasogastric tube into the stomach. Otherwise, no significant interval change. Signed: Abiodun Macias MDReport Verified Date/Time: 12/06/2018 15:53:40 Reading Location: [facility] Reading Room POCT-GLUCOSE [id number] 12:57:00 Test Item Value Reference Range Comments POC-GLUCOSE METER (BEAKER) 243 mg/dL 70-110 TESTED AT [address] (test cyzd=4628) [facility] [address] HEMOGLOBIN AND [id number] 23:31:00 Test Item Value Reference Range Comments HEMOGLOBIN (BEAKER) (test gbcr=781) 7.2 GM/DL 13.7-17.5 HEMATOCRIT (BEAKER) (test diot=132) 23.0 % 40.1-51.0 POCT-GLUCOSE [id number] 22:56:00 Test Item Value Reference Range Comments POC-GLUCOSE METER (BEAKER) 90 mg/dL 70-110 TESTED AT [address] (test iysq=2934) [facility] [address] LACTIC ACID, [id number] 22:19:00 Test Item Value Reference Range Comments LACTATE BLOOD ARTERIAL (2) (BEAKER) (test 2.1 mmol/L 0.5-2.2 uoqm=3946) POCT-GLUCOSE [id number] 22:07:00 Test Item Value Reference Range Comments POC-GLUCOSE METER (BEAKER) 91 mg/dL 70-110 TESTED AT [address] (test wenk=0001) [facility] [address] BLOOD GAS, [id number] 22:02:00 Test Item Value Reference Range Comments PH ARTERIAL (BEAKER) (test solq=365) 7.41 7.35-7.45 PCO2 ARTERIAL (BEAKER) (test wjrt=429) 44 mmHg 35-45 PO2 ARTERIAL (BEAKER) (test yiqc=645) 187 mmHg 80-90 O2 SATURATION ARTERIAL (BEAKER) (test hvfv=183) 99.3 % 96.0-97.0 HCO3 ARTERIAL (BEAKER) (test ojjb=958) 27 mmol/L 21-29 BASE EXCESS ARTERIAL (BEAKER) (test dvzz=476) 2.1 mmol/L -2.0-3.0 PATIENT TEMPERATURE (BEAKER) (test bfoe=9721) 37.0 C FIO2 (BEAKER) (test njed=5940) 60.0 % URINALYSIS W/ REFLEX URINE [id number] 21:47:00 Test Item Value Reference Range Comments COLOR (BEAKER) (test wayu=122) Yellow CLARITY (BEAKER) (test pqyw=444) Cloudy SPECIFIC GRAVITY UA (BEAKER) (test fjrm=888) 1.016 1.001-1.035 PH UA (BEAKER) (test svpk=587) 5.5 5.0-8.0 PROTEIN UA (BEAKER) (test jpoq=339) 100 mg/dL Negative GLUCOSE UA (BEAKER) (test ydin=432) Negative Negative KETONES UA (BEAKER) (test pzkv=583) Trace Negative BILIRUBIN UA (BEAKER) (test bilo=276) Negative Negative BLOOD UA (BEAKER) (test shzz=315) Trace Negative NITRITE UA (BEAKER) (test jggm=001) Negative Negative LEUKOCYTE ESTERASE UA (BEAKER) (test zpoa=207) Small Negative UROBILINOGEN UA (BEAKER) (test mbvu=632) 0.2 mg/dL 0.2-1.0 RBC UA (BEAKER) (test ewpl=084) 0 /HPF WBC UA (BEAKER) (test sxhd=678) 4 /HPF MUCUS (BEAKER) (test sgrr=2349) Rare SOURCE(BEAKER) (test pdkv=8341) POCT-GLUCOSE [id number] 20:53:00 Test Item Value Reference Range Comments POC-GLUCOSE METER (BEAKER) 65 mg/dL 70-110 TESTED AT [facility] [address] [facility] (test rvjg=3908) [facility] [address] POCT-GLUCOSE [id number] 20:27:00 Test Item Value Reference Range Comments POC-GLUCOSE METER (BEAKER) 97 mg/dL 70-110 TESTED AT [facility] [address] [facility] (test vhha=6088) [facility] [address] POCT-GLUCOSE [id number] 20:11:00 Test Item Value Reference Range Comments POC-GLUCOSE METER (BEAKER) 32 mg/dL 70-110 TESTED AT [facility] [address] [facility] (test rauz=2268) [facility] [address] RAD, CHEST, 1 VIEW, NON [id number] 19:53:00Reason for exam:-> intubationShould this be performed at the bedside?->YesFINAL REPORT History: Intubation. Comparison: 12/02/2018 Findings: A single view of the chest is submitted. The tip of an endotracheal tube is in position above the gladis at the level of the inferior clavicular heads. The cardiac silhouette is within normal limits for size. Thelung volumes are slightly low but equally aerated. Hazy bibasilar opacities may reflect atelectasis.Pneumonitis should be excluded clinically. There is no pneumothorax or acute bony abnormality. Signed: Sergey Guzman MDReport Verified Date/Time: 12/05/2018 19:53:20 Electronically signed by: SERGEY GUZMAN M.D. on 02/2019 07:53 PMLACTIC ACID, [id number] 19:33:00 Test Item Value Reference Range Comments LACTATE BLOOD ARTERIAL (2) (BEAKER) (test 2.2 mmol/L 0.5-2.2 slsi=7383) CBC W/PLT COUNT & AUTO [id number] 18:43:00 Test Item Value Reference Range Comments WHITE BLOOD CELL COUNT (BEAKER) (test jpdr=756) 4.8 K/ L 3.5-10.5 RED BLOOD CELL COUNT (BEAKER) (test qnfj=165) 3.05 M/ L 4.63-6.08 HEMOGLOBIN (BEAKER) (test jzde=547) 9.0 GM/DL 13.7-17.5 HEMATOCRIT (BEAKER) (test ncgr=889) 28.5 % 40.1-51.0 MEAN CORPUSCULAR VOLUME (BEAKER) (test axth=059) 93.4 fL 79.0-92.2 MEAN CORPUSCULAR HEMOGLOBIN (BEAKER) (test 29.5 pg 25.7-32.2 rtlr=907) MEAN CORPUSCULAR HEMOGLOBIN CONC (BEAKER) (test 31.6 GM/DL 32.3-36.5 xxvs=365) RED CELL DISTRIBUTION WIDTH (BEAKER) (test 15.9 % 11.6-14.4 youf=011) PLATELET COUNT (BEAKER) (test fino=871) 244 K/CU MM 150-450 MEAN PLATELET VOLUME (BEAKER) (test fyik=766) 10.5 fL 9.4-12.4 NUCLEATED RED BLOOD CELLS (BEAKER) (test 1 /100 WBC 0-0 jzmg=958) (CELLAVISION MANUAL DIFF)2018-12-05 18:43:00 Test Item Value Reference Range Comments NEUTROPHILS - REL (CELLAVISION)(BEAKER) (test 77 % orvu=2264) LYMPHOCYTES - REL (CELLAVISION)(BEAKER) (test 4 % joyk=5174) MYELOCYTES - REL (CELLAVISION)(BEAKER) (test 1 % 0-0 flvm=4265) BANDS - REL (CELLAVISION)(BEAKER) (test 18 % 0-10 vumr=3379) NEUTROPHILS - ABS (CELLAVISION)(BEAKER) (test 3.70 K/ul 1.78-5.38 ryim=3406) LYMPHOCYTES - ABS (CELLAVISION)(BEAKER) (test 0.19 K/ul 1.32-3.57 wini=4133) MYELOCYTES-ABS (CELLAVISION)(BEAKER) (test 0.05 K/uL 0.00-0.00 sqxy=2510) BANDS - ABS (CELLAVISION)(BEAKER) (test 0.86 K/uL 0.00-0.80 cxwe=6372) TOTAL COUNTED (BEAKER) (test eoza=4365) 100 MANUAL NRBC PER 100 CELLS (BEAKER) (test 3 /100 WBC 0-0 jcyi=2071) WBC MORPHOLOGY (BEAKER) (test vyqs=378) Normal GIANT PLATELETS (BEAKER) (test vxsw=354) Present LARGE PLT(BEAKER) (test rprq=4859) Present POLYCHROMATOPHILLIC RBCS(BEAKER) (test otim=894) 1+ few ANISOCYTOSIS (BEAKER) (test vizu=469) 1+ few MICROCYTES (BEAKER) (test rlsd=904) 1+ few MACROCYTES (BEAKER) (test iviu=775) 2+ moderate ARTIFACT (CELLAVISION)(BEAKER) (test exxl=0377) Present PLATELET CONCENTRATION (CELLAVISION)(BEAKER) Adequate (test ztuv=0709) Received comment: User comments: Slide comments:POCT-GLUCOSE [id number] 18: 37:00 Test Item Value Reference Range Comments POC-GLUCOSE METER (BEAKER) 76 mg/dL 70-110 TESTED AT [facility] [address] [facility] (test qyfx=6235) [facility] [address] B-TYPE NATRIURETIC FACTOR (BNP)2018-12-05 17:58:00 Test Item Value Reference Range Comments B-TYPE NATRIURETIC PEPTIDE (BEAKER) (test 278 pg/mL 0-100 oqfy=584) TROPONIN [id number] 17:58:00 Test Item Value Reference Range Comments TROPONIN I (BEAKER) (test ygka=260) 0.01 ng/mL 0.00-0.03 Troponin I (TnI) levels must be interpreted in the context of the presenting symptoms and the clinical findings. Elevated TnI levels indicate myocardial damage, but are not specific for ischemic heart disease. Elevated TnI levels are seen in patients with other cardiac conditions (including myocarditis and congestive heart failure), and slight TnI elevations occur in patients with other conditions, including sepsis, renal failure, acidosis, acute neurological disease, and persistent tachyarrhythmia.BASIC METABOLIC [id number] 17:55:00 Test Item Value Reference Range Comments SODIUM (BEAKER) (test 138 meq/L 136-145 taxo=854) POTASSIUM (BEAKER) (test 3.6 meq/L 3.5-5.1 Specimen slightly efah=431) hemolyzed CHLORIDE (BEAKER) (test 102 meq/L 98-107 oyue=630) CO2 (BEAKER) (test 27 meq/L 22-29 uzfc=558) BLOOD UREA NITROGEN 40 mg/dL 7-21 (BEAKER) (test yklr=472) CREATININE (BEAKER) (test 1.41 mg/dL 0.57-1.25 Specimen slightly refx=644) hemolyzed GLUCOSE RANDOM (BEAKER) 55 mg/dL 70-105 (test xrac=302) CALCIUM (BEAKER) (test 8.3 mg/dL 8.4-10.2 udao=508) EGFR (BEAKER) (test mL/min/1.73 sq m INSUFFICIENT CLINICAL DATA roug=7703) TO CALCULATE ESTIMATED GFR. [id number] 17:52:00 Test Item Value Reference Range Comments MAGNESIUM (BEAKER) (test 1.3 mg/dL 1.6-2.6 Specimen slightly hemolyzed tdbj=518) [id number] 17:52:00 Test Item Value Reference Range Comments PHOSPHORUS (BEAKER) (test 3.0 mg/dL 2.3-4.7 Specimen slightly hemolyzed uusx=775) CREATINE KINASE (CK)2018-12-05 17:52:00 Test Item Value Reference Range Comments CREATINE KINASE TOTAL (BEAKER) (test afkm=529) 35 U/L 29-200 BLOOD GAS, [id number] 17:36:00 Test Item Value Reference Range Comments PH ARTERIAL (BEAKER) (test racu=987) 7.25 7.35-7.45 PCO2 ARTERIAL (BEAKER) (test cinh=412) 70 mmHg 35-45 PO2 ARTERIAL (BEAKER) (test tqoq=301) 167 mmHg 80-90 O2 SATURATION ARTERIAL (BEAKER) (test btui=413) 98.7 % 96.0-97.0 HCO3 ARTERIAL (BEAKER) (test wpsd=039) 29 mmol/L 21-29 BASE EXCESS ARTERIAL (BEAKER) (test pyqw=237) 1.4 mmol/L -2.0-3.0 PATIENT TEMPERATURE (BEAKER) (test fjui=1043) 39.3 C FIO2 (BEAKER) (test iedq=5231) 60.0 % POCT-GLUCOSE [id number] 17:30:00 Test Item Value Reference Range Comments POC-GLUCOSE METER (BEAKER) 54 mg/dL 70-110 Notified RYLEE OROPEZA/TESTED AT [facility] (test kjot=8638) [address] [facility] [address] POCT-GLUCOSE [id number] 11:33:00 Test Item Value Reference Range Comments POC-GLUCOSE METER (BEAKER) 109 mg/dL 70-110 TESTED AT [place] [address] (test arlo=1613) [facility] [address] BASIC METABOLIC [id number] 06:25:00 Test Item Value Reference Range Comments SODIUM (BEAKER) (test 136 meq/L 136-145 uvnv=090) POTASSIUM (BEAKER) (test 3.8 meq/L 3.5-5.1 jxlk=609) CHLORIDE (BEAKER) (test 103 meq/L 98-107 xflk=892) CO2 (BEAKER) (test 26 meq/L 22-29 bmip=314) BLOOD UREA NITROGEN 52 mg/dL 7-21 (BEAKER) (test mlrf=322) CREATININE (BEAKER) (test 1.52 mg/dL 0.57-1.25 tyax=771) GLUCOSE RANDOM (BEAKER) 94 mg/dL 70-105 (test bkgj=246) CALCIUM (BEAKER) (test 8.9 mg/dL 8.4-10.2 acdv=320) EGFR (BEAKER) (test mL/min/1.73 sq m INSUFFICIENT CLINICAL DATA kkgb=3744) TO CALCULATE ESTIMATED GFR. [id number] 06:24:00 Test Item Value Reference Range Comments MAGNESIUM (BEAKER) (test upzy=955) 1.6 mg/dL 1.6-2.6 [id number] 06:18:00 Test Item Value Reference Range Comments FERRITIN (BEAKER) (test vaow=883) 62 ng/mL 5-275 CBC W/PLT COUNT & AUTO [id number] 05:54:00 Test Item Value Reference Range Comments WHITE BLOOD CELL COUNT (BEAKER) (test plxu=002) 7.9 K/ L 3.5-10.5 RED BLOOD CELL COUNT (BEAKER) (test tepk=771) 2.81 M/ L 4.63-6.08 HEMOGLOBIN (BEAKER) (test lioe=035) 8.3 GM/DL 13.7-17.5 HEMATOCRIT (BEAKER) (test zyea=235) 26.6 % 40.1-51.0 MEAN CORPUSCULAR VOLUME (BEAKER) (test savy=747) 94.7 fL 79.0-92.2 MEAN CORPUSCULAR HEMOGLOBIN (BEAKER) (test 29.5 pg 25.7-32.2 lyqg=317) MEAN CORPUSCULAR HEMOGLOBIN CONC (BEAKER) (test 31.2 GM/DL 32.3-36.5 wvdq=663) RED CELL DISTRIBUTION WIDTH (BEAKER) (test 15.9 % 11.6-14.4 oyxl=123) PLATELET COUNT (BEAKER) (test kpdg=369) 215 K/CU MM 150-450 MEAN PLATELET VOLUME (BEAKER) (test wnxq=641) 10.7 fL 9.4-12.4 NUCLEATED RED BLOOD CELLS (BEAKER) (test 0 /100 WBC 0-0 cegi=009) NEUTROPHILS RELATIVE PERCENT (BEAKER) (test 78 % vfqi=607) LYMPHOCYTES RELATIVE PERCENT (BEAKER) (test 9 % lnpo=113) MONOCYTES RELATIVE PERCENT (BEAKER) (test 10 % zizc=923) EOSINOPHILS RELATIVE PERCENT (BEAKER) (test 2 % mypd=289) BASOPHILS RELATIVE PERCENT (BEAKER) (test 0 % zjbw=617) NEUTROPHILS ABSOLUTE COUNT (BEAKER) (test 6.22 K/ L 1.78-5.38 hxoc=191) LYMPHOCYTES ABSOLUTE COUNT (BEAKER) (test 0.74 K/ L 1.32-3.57 vcdq=456) MONOCYTES ABSOLUTE COUNT (BEAKER) (test 0.76 K/ L 0.30-0.82 fmsq=299) EOSINOPHILS ABSOLUTE COUNT (BEAKER) (test 0.16 K/ L 0.04-0.54 wwmy=459) BASOPHILS ABSOLUTE COUNT (BEAKER) (test 0.02 K/ L 0.01-0.08 weio=463) IMMATURE GRANULOCYTES-RELATIVE PERCENT (BEAKER) 0 % 0-1 (test xost=4342) POCT-GLUCOSE [id number] 21:45:00 Test Item Value Reference Range Comments POC-GLUCOSE METER (BEAKER) 126 mg/dL 70-110 TESTED AT [address] (test wciz=4914) [place] [id number] POCT-GLUCOSE [id number] 17:33:00 Test Item Value Reference Range Comments POC-GLUCOSE METER (BEAKER) 130 mg/dL 70-110 TESTED AT [address] (test uuar=0517) [place] [address] POCT-GLUCOSE [id number] 11:52:00 Test Item Value Reference Range Comments POC-GLUCOSE METER (BEAKER) 194 mg/dL 70-110 TESTED AT [address] (test hvon=0497) [place] [address] CBC W/PLT COUNT & AUTO [id number] 09:12:00 Test Item Value Reference Range Comments WHITE BLOOD CELL COUNT (BEAKER) (test znkh=864) 5.8 K/ L 3.5-10.5 RED BLOOD CELL COUNT (BEAKER) (test ccbt=751) 2.56 M/ L 4.63-6.08 HEMOGLOBIN (BEAKER) (test ciiu=145) 7.5 GM/DL 13.7-17.5 HEMATOCRIT (BEAKER) (test tmta=840) 24.0 % 40.1-51.0 MEAN CORPUSCULAR VOLUME (BEAKER) (test grxn=994) 93.8 fL 79.0-92.2 MEAN CORPUSCULAR HEMOGLOBIN (BEAKER) (test 29.3 pg 25.7-32.2 cbgm=857) MEAN CORPUSCULAR HEMOGLOBIN CONC (BEAKER) (test 31.3 GM/DL 32.3-36.5 vppw=787) RED CELL DISTRIBUTION WIDTH (BEAKER) (test 16.2 % 11.6-14.4 vzah=751) PLATELET COUNT (BEAKER) (test xgvu=960) 164 K/CU MM 150-450 MEAN PLATELET VOLUME (BEAKER) (test vmhn=823) 10.1 fL 9.4-12.4 NUCLEATED RED BLOOD CELLS (BEAKER) (test 0 /100 WBC 0-0 czxo=229) (CELLAVISION MANUAL DIFF)2018-12-04 09:12:00 Test Item Value Reference Range Comments NEUTROPHILS - REL (CELLAVISION)(BEAKER) (test 70 % byqz=3764) LYMPHOCYTES - REL (CELLAVISION)(BEAKER) (test 16 % fucx=7598) MONOCYTES - REL (CELLAVISION)(BEAKER) (test 8 % qwcp=2035) EOSINOPHILS - REL (CELLAVISION)(BEAKER) (test 3 % oapk=3966) BASOPHILS - REL (CELLAVISION)(BEAKER) (test 1 % qcow=8097) MYELOCYTES - REL (CELLAVISION)(BEAKER) (test 1 % 0-0 qupr=2270) ATYPICAL LYMPHOCYTES - REL (CELLAVISION)(BEAKER) 1 % 0-0 (test rdew=9071) NEUTROPHILS - ABS (CELLAVISION)(BEAKER) (test 4.06 K/ul 1.78-5.38 dxtr=9216) LYMPHOCYTES - ABS (CELLAVISION)(BEAKER) (test 0.93 K/ul 1.32-3.57 lrbt=9868) MONOCYTES - ABS (CELLAVISION)(BEAKER) (test 0.46 K/uL 0.30-0.82 sozw=8463) EOSINOPHILS - ABS (CELLAVISION)(BEAKER) (test 0.17 K/uL 0.04-0.54 dfno=1916) BASOPHILS - ABS (CELLAVISION)(BEAKER) (test 0.06 K/uL 0.01-0.08 gbvn=9717) MYELOCYTES-ABS (CELLAVISION)(BEAKER) (test 0.06 K/uL 0.00-0.00 tmnk=1565) ATYPICAL LYMPHOCYTES - ABS (CELLAVISION)(BEAKER) 0.06 K/uL 0.00-0.00 (test nafd=2100) TOTAL COUNTED (BEAKER) (test auzz=3198) 100 SMUDGE CELLS (BEAKER) (test bwku=5914) Present GIANT PLATELETS (BEAKER) (test xylz=113) Present ANISOCYTOSIS (BEAKER) (test drjx=676) 1+ few PLATELET CONCENTRATION (CELLAVISION)(BEAKER) (test Adequate vlgh=0805) Received comment: User comments: Slide comments:POCT-GLUCOSE [id number] 07: 45:00 Test Item Value Reference Range Comments POC-GLUCOSE METER (BEAKER) 176 mg/dL 70-110 TESTED AT [address] (test mgch=2391) [facility] [address] BASIC METABOLIC [id number] 04:24:00 Test Item Value Reference Range Comments SODIUM (BEAKER) (test 132 meq/L 136-145 etua=916) POTASSIUM (BEAKER) (test 4.2 meq/L 3.5-5.1 xere=789) CHLORIDE (BEAKER) (test 102 meq/L 98-107 upmh=936) CO2 (BEAKER) (test 25 meq/L 22-29 ronl=346) BLOOD UREA NITROGEN 70 mg/dL 7-21 (BEAKER) (test znuh=436) CREATININE (BEAKER) (test 2.07 mg/dL 0.57-1.25 pgyu=843) GLUCOSE RANDOM (BEAKER) 177 mg/dL 70-105 (test asch=084) CALCIUM (BEAKER) (test 8.4 mg/dL 8.4-10.2 nddm=549) EGFR (BEAKER) (test mL/min/1.73 sq m INSUFFICIENT CLINICAL DATA pwzb=1955) TO CALCULATE ESTIMATED GFR. [id number] 04:20:00 Test Item Value Reference Range Comments MAGNESIUM (BEAKER) (test cgqq=479) 2.0 mg/dL 1.6-2.6 POCT-GLUCOSE [id number] 00:32:00 Test Item Value Reference Range Comments POC-GLUCOSE METER (BEAKER) 257 mg/dL 70-110 TESTED AT [address] (test safk=8428) [place] [address] POCT-GLUCOSE [id number] 22:27:00 Test Item Value Reference Range Comments POC-GLUCOSE METER (BEAKER) 262 mg/dL 70-110 TESTED AT [address] (test qbvt=3738) [place] [address] POCT-GLUCOSE [id number] 22:09:00 Test Item Value Reference Range Comments POC-GLUCOSE METER (BEAKER) 302 mg/dL 70-110 Notified RYLEE OROPEZA/TESTED AT [facility] (test hitk=4796) [address] [place] [address] SPUTUM CULTURE + GRAM [id number] 15:41:00 Test Item Value Reference Range Comments CULTURE (BEAKER) (test Oropharyngeal contamination, ekev=2532) specimen rejected. Recollect requested. GRAM STAIN RESULT (BEAKER) 2+ gram positive cocci in pairs (test kmtq=0338) GRAM STAIN RESULT (BEAKER) 2+ gram negative rods (test xyvw=44693) GRAM STAIN RESULT (BEAKER) 2+ White blood cells seen (test zqnw=74390) GRAM STAIN RESULT (BEAKER) >25 epithelial cells (test fcew=140341) CT, [id number] 14:52:00FINAL REPORT CT abdomen and pelvis without contrast History: Abdominal pain, history of Crohn's disease Comparison: none Technique: serial axial imaging was performed without intravenous contrast as per departmental protocol. Multiplanar images are reconstructed and reviewed when indicated. This CT examination is performed using one or more of the following dose reduction techniques: Automated exposure control, adjustment of the mA and /or kV according to patient size, and /or use of iterative reconstruction technique. Findings:Evaluation limited by lack of intravenous contrast. Mild bibasilar airspace disease. Calcified granulomata within the liver and spleen are consistent with prior granulomatous disease. Otherwise, Grossly unremarkable appearance of unenhanced liver, gallbladder, pancreas, spleen, and adrenal glands. Nonspecific bilateral perinephric fat stranding. 13 mm cyst is noted within the left kidney. There are nonobstructing calculi within both kidneys which measure up to 6 mm in size. No small or large bowel obstruction. No apparent bowel wall thickening. Previous right hemicolectomy. No free fluid or adenopathy. No aggressive osseous lesion.Impression: 1. No acute findings in the abdomen or pelvis by unenhanced CT scan.2. Previous right hemicolectomy. Signed: Abiodun Macias MDReport Verified Date/Time: 12/03/2018 14:52:09 Reading Location: [facility] Diagnostic Imaging Reading Room [place] [address] RESPIRATORY PANEL [id number] 14:33: 00 Test Item Value Reference Range Comments HUMAN METAPNEUMOVIRUS (BEAKER) (test Not detected Not detected, Equivocal rfwk=7721) RHINOVIRUS (BEAKER) (test bzgl=8080) Not detected Not detected, Equivocal INFLUENZA A (BEAKER) (test iwaw=2704) Not detected Not detected, Equivocal INFLUENZA A (NO SUBTYPE) (test Not detected, Equivocal ffza=0338) INFLUENZA A SUBTYPE H1 (BEAKER) (test Not detected, Equivocal mxnh=7041) INFLUENZA A SUBTYPE H3 (BEAKER) (test Not detected, Equivocal khms=2356) INFLUENZA A SUBTYPE H1-2009 (BEAKER) Not detected, Equivocal (test kdde=5307) INFLUENZA B (BEAKER) (test usyr=1096) Not detected Not detected, Equivocal RESPIRATORY SYNCYTIAL VIRUS (BEAKER) Not detected Not detected, Equivocal (test nrfy=4778) PARAINFLUENZA VIRUS 1 (BEAKER) (test Not detected Not detected, Equivocal oiei=7209) PARAINFLUENZA VIRUS 2 (BEAKER) (test Not detected Not detected, Equivocal nzwo=0950) PARAINFLUENZA VIRUS 3 (BEAKER) (test Not detected Not detected, Equivocal rfwl=4184) PARAINFLUENZA VIRUS 4 (BEAKER) (test Not detected Not detected, Equivocal wseb=3502) ADENOVIRUS (BEAKER) (test gvuf=8458) Not detected Not detected, Equivocal CORONAVIRUS 229E (BEAKER) (test Not detected Not detected, Equivocal cqry=7572) CORONAVIRUS HKU1 (BEAKER) (test Not detected Not detected, Equivocal xbnj=5216) CORONAVIRUS NL63 (BEAKER) (test Not detected Not detected, Equivocal xwbs=7097) CORONAVIRUS OC43 (BEAKER) (test Not detected Not detected, Equivocal zxhk=6468) BORDETELLA PERTUSSIS (BEAKER) (test Not detected Not detected, Equivocal zvlt=7243) CHLAMYDOPHILA PNEUMONIAE (BEAKER) (test Not detected Not detected, Equivocal sgqn=4869) MYCOPLASMA PNEUMONIAE (BEAKER) (test Not detected Not detected, Equivocal nlpx=9319) Other viruses and bacteria not targeted by this PCR panel cannot be excluded; therefore clinical correlation and follow up of serology, culture results, and other molecular studies is required. The results are not intended to be used as the sole means for clinical diagnosis or patient management decisions. This sample was tested at the [facility] Molecular Diagnostics Laboratory using the [employer] Respiratory Panel. It is FDA cleared and has been verified and approved by the [facility]ostics [facility] for clinical use on nasal swab specimens.OSMOLALITY, [id number] 11:50:00 Test Item Value Reference Range Comments OSMOLALITY URINE (BEAKER) (test zdpg=961) 440 mOsm/kg 40-1,400 POCT-GLUCOSE [id number] 11:41:00 Test Item Value Reference Range Comments POC-GLUCOSE METER (BEAKER) 249 mg/dL 70-110 TESTED AT [facility] [address] (test mign=5657) [facility] [address] HEMOGLOBIN AND [id number] 10:05:00 Test Item Value Reference Range Comments HEMOGLOBIN (BEAKER) (test fnec=662) 7.6 GM/DL 13.7-17.5 HEMATOCRIT (BEAKER) (test pfsh=028) 24.2 % 40.1-51.0 POCT-GLUCOSE [id number] 06:35:00 Test Item Value Reference Range Comments POC-GLUCOSE METER (BEAKER) 192 mg/dL 70-110 TESTED AT [facility] [address] (test wpdo=9950) [facility] [address] VITAMIN B12 AND [id number] 06:34:00 Test Item Value Reference Range Comments VITAMIN B12 (BEAKER) (test fyiu=360) 269 pg/mL 213-816 FOLATE (BEAKER) (test tmoy=568) 10.9 ng/mL >=7.0 IRON, TIBC, % SAT. (WITHOUT FERRITIN)2018-12-03 06:08:00 Test Item Value Reference Range Comments IRON (BEAKER) (test aonz=051) 9.0 ug/dL 40.0-160.0 TOTAL IRON BINDING CAPACITY (BEAKER) (test 269 ug/dL 250-450 kgou=171) IRON % SATURATION (2) (BEAKER) (test zpdt=3845) 3 % 20-55 VANCOMYCIN LEVEL, [id number] 04:52:00 Test Item Value Reference Range Comments VANCOMYCIN RANDOM (BEAKER) (test dzbg=254) 16.0 ug/mL Reference Range: No [id number] 04:42:00 Test Item Value Reference Range Comments MAGNESIUM (BEAKER) (test qrfl=611) 2.3 mg/dL 1.6-2.6 BASIC METABOLIC [id number] 04:42:00 Test Item Value Reference Range Comments SODIUM (BEAKER) (test 137 meq/L 136-145 cdet=868) POTASSIUM (BEAKER) (test 4.3 meq/L 3.5-5.1 cxjk=699) CHLORIDE (BEAKER) (test 101 meq/L 98-107 bxyl=136) CO2 (BEAKER) (test 27 meq/L 22-29 xwar=200) BLOOD UREA NITROGEN 87 mg/dL 7-21 (BEAKER) (test ytsl=232) CREATININE (BEAKER) (test 2.32 mg/dL 0.57-1.25 yhuq=759) GLUCOSE RANDOM (BEAKER) 167 mg/dL 70-105 (test mrrw=586) CALCIUM (BEAKER) (test 8.5 mg/dL 8.4-10.2 spwl=990) EGFR (BEAKER) (test mL/min/1.73 sq m INSUFFICIENT CLINICAL DATA xnow=0570) TO CALCULATE ESTIMATED GFR. LACTIC ACID, [id number] 04:23:00 Test Item Value Reference Range Comments LACTATE BLOOD VENOUS (2) (BEAKER) (test 0.7 mmol/L 0.5-2.2 vvod=0500) CBC (HEMOGRAM ONLY)2018-12-03 04:11:00 Test Item Value Reference Range Comments WHITE BLOOD CELL COUNT (BEAKER) (test qflw=589) 6.4 K/ L 3.5-10.5 RED BLOOD CELL COUNT (BEAKER) (test gdwe=204) 2.56 M/ L 4.63-6.08 HEMOGLOBIN (BEAKER) (test wlkl=280) 7.7 GM/DL 13.7-17.5 HEMATOCRIT (BEAKER) (test qhvq=455) 23.8 % 40.1-51.0 MEAN CORPUSCULAR VOLUME (BEAKER) (test zwml=135) 93.0 fL 79.0-92.2 MEAN CORPUSCULAR HEMOGLOBIN (BEAKER) (test 30.1 pg 25.7-32.2 cgdp=441) MEAN CORPUSCULAR HEMOGLOBIN CONC (BEAKER) (test 32.4 GM/DL 32.3-36.5 xrqf=215) RED CELL DISTRIBUTION WIDTH (BEAKER) (test 16.4 % 11.6-14.4 vmhq=671) PLATELET COUNT (BEAKER) (test kxre=772) 182 K/CU MM 150-450 MEAN PLATELET VOLUME (BEAKER) (test yntc=331) 10.4 fL 9.4-12.4 NUCLEATED RED BLOOD CELLS (BEAKER) (test 0 /100 WBC 0-0 frrh=787) SPUTUM CULTURE + GRAM [id number] 03:30:00 Test Item Value Reference Range Comments CULTURE (BEAKER) (test Oropharyngeal contamination, vivw=8582) specimen rejected. Recollect requested. GRAM STAIN RESULT (BEAKER) <1+ White blood cells seen (test iint=5023) GRAM STAIN RESULT (BEAKER) 5-10 epithelial cells (test pfkr=02157) GRAM STAIN RESULT (BEAKER) 4+ gram negative rods (test bigt=60316) GRAM STAIN RESULT (BEAKER) 3+ gram positive rods (test nzvf=523556) GRAM STAIN RESULT (BEAKER) 1+ gram positive cocci in pairs (test hiyh=582286) POCT-GLUCOSE [id number] 23:26:00 Test Item Value Reference Range Comments POC-GLUCOSE METER (BEAKER) 215 mg/dL 70-110 TESTED AT [facility] [address] (test bnqp=6621) [facility] [address] HEMOGLOBIN AND [id number] 23:25:00 Test Item Value Reference Range Comments HEMOGLOBIN (BEAKER) (test ilgw=585) 7.5 GM/DL 13.7-17.5 HEMATOCRIT (BEAKER) (test tnmv=061) 23.3 % 40.1-51.0 U/S, ABDOMINAL, [id number] 18:44:00Please do kidney as well Reason for exam:->BLANK, and lactic acidosi Should this be performed at the bedside?-> YesFINAL REPORT Ultrasound of the Abdomen and pelvis, 12/02/2018. Clinical History: Acute kidney injury. Lactic acidosis. Comparison: None. Discussion:Sonographic evaluation of the abdomen and pelvis is performed. Liver: 14.9 cm in length at the right midclavicular line, normalin size. Normal echogenicity. Homogeneous echotexture. No mass. Main portal vein diameter 1.0 cm. Biliary tree: Common duct 9 mm. The common duct is mildly prominent but there is no intrahepaticbiliary ductal dilatation. Gallbladder: Mildly distended. No gallstones. No wall thickening. No pericholecystic fluid. Equivocal sonographic Flores sign. Pancreas: Obscured by bowel gas. Ascites: None. Spleen: 13.1 cm in length, mildly enlarged. Kidneys: Right kidney 10.8 cm in length, normalin size, with cortical thickness of 1.6 cm. Left kidney 11.0 cm in length, normal in size, with cortical thickness of 1.4 cm. Normal cortical echogenicity. No mass. There is a punctate nonobstructing nephrolith in the interpolar aspect of the right kidney. No hydronephrosis. Urinary bladder: Decompressed by Eisenberg catheter. IVC/Aorta: Segments partially seen. Unremarkable. Impression:1. Mild distention of the gallbladder.2. 4 mm nonobstructing right nephrolith. Kidneys otherwise unremarkable. Signed: Isatu Billingsley MDReport Verified Date/Time: 12/02/2018 18:44:56 Reading Location: [address] Transitional Reading Room U/S , TANYA, [id number] 18:44:00Please do kidney as well Reason for exam:-& gt;BLANK, and lactic acidosi Should this be performed at the bedside?-> YesFINAL REPORT Ultrasound of the Abdomen and pelvis, 12/02/2018. Clinical History: Acute kidney injury. Lactic acidosis. Comparison: None. Discussion:Sonographic evaluation of the abdomen and pelvis is performed. Liver: 14.9 cm in length at the right midclavicular line, normalin size. Normal echogenicity. Homogeneous echotexture. No mass. Main portal vein diameter 1.0 cm. Biliary tree: Common duct 9 mm. The common duct is mildly prominent but there is no intrahepaticbiliary ductal dilatation. Gallbladder: Mildly distended. No gallstones. No wall thickening. No pericholecystic fluid. Equivocal sonographic Flores sign. Pancreas: Obscured by bowel gas. Ascites: None. Spleen: 13.1 cm in length, mildly enlarged. Kidneys: Right kidney 10.8 cm in length, normalin size, with cortical thickness of 1.6 cm. Left kidney 11.0 cm in length, normal in size, with cortical thickness of 1.4 cm. Normal cortical echogenicity. No mass. There is a punctate nonobstructing nephrolith in the interpolar aspect of the right kidney. No hydronephrosis. Urinary bladder: Decompressed by Eisenberg catheter. IVC/Aorta: Segments partially seen. Unremarkable. Impression:1. Mild distention of the gallbladder.2. 4 mm nonobstructing right nephrolith. Kidneys otherwise unremarkable. Signed: Isatu Billingsley MDReport Verified Date/Time: 12/02/2018 18:44:56 Reading Location: [facility] C013 Transitional Reading Room POCT-GLUCOSE [id number] 18:12:00 Test Item Value Reference Range Comments POC-GLUCOSE METER (BEAKER) 267 mg/dL 70-110 TESTED AT [address] (test esbj=4911) [facility] [address] POCT-GLUCOSE [id number] 17:34:00 Test Item Value Reference Range Comments POC-GLUCOSE METER (BEAKER) 257 mg/dL 70-110 TESTED AT [facility] [address] [facility] (test drbx=1056) [facility] [address] BASIC METABOLIC [id number] 15:14:00 Test Item Value Reference Range Comments SODIUM (BEAKER) (test 130 meq/L 136-145 adjb=181) POTASSIUM (BEAKER) (test 4.8 meq/L 3.5-5.1 rpwf=024) CHLORIDE (BEAKER) (test 96 meq/L 98-107 sfiq=804) CO2 (BEAKER) (test 28 meq/L 22-29 bvbj=283) BLOOD UREA NITROGEN 91 mg/dL 7-21 (BEAKER) (test jbid=291) CREATININE (BEAKER) (test 2.13 mg/dL 0.57-1.25 abzi=527) GLUCOSE RANDOM (BEAKER) 262 mg/dL 70-105 (test ptmz=598) CALCIUM (BEAKER) (test 8.2 mg/dL 8.4-10.2 ullc=321) EGFR (BEAKER) (test mL/min/1.73 sq m INSUFFICIENT CLINICAL DATA sdiv=7612) TO CALCULATE ESTIMATED GFR. LACTIC ACID, [id number] 14:55:00 Test Item Value Reference Range Comments LACTATE BLOOD VENOUS (2) 1.4 mmol/L 0.5-2.2 Specimen slightly hemolyzed (BEAKER) (test clas=6627) CBC (HEMOGRAM ONLY)2018-12-02 14:45:00 Test Item Value Reference Range Comments WHITE BLOOD CELL COUNT (BEAKER) (test uvgr=850) 10.9 K/ L 3.5-10.5 RED BLOOD CELL COUNT (BEAKER) (test qyue=830) 2.34 M/ L 4.63-6.08 HEMOGLOBIN (BEAKER) (test csyi=046) 7.0 GM/DL 13.7-17.5 HEMATOCRIT (BEAKER) (test jfyh=469) 21.5 % 40.1-51.0 MEAN CORPUSCULAR VOLUME (BEAKER) (test loni=100) 91.9 fL 79.0-92.2 MEAN CORPUSCULAR HEMOGLOBIN (BEAKER) (test 29.9 pg 25.7-32.2 qlis=720) MEAN CORPUSCULAR HEMOGLOBIN CONC (BEAKER) (test 32.6 GM/DL 32.3-36.5 gjzt=475) RED CELL DISTRIBUTION WIDTH (BEAKER) (test 17.0 % 11.6-14.4 xtvb=607) PLATELET COUNT (BEAKER) (test dzes=673) 209 K/CU MM 150-450 MEAN PLATELET VOLUME (BEAKER) (test zfbb=553) 10.9 fL 9.4-12.4 NUCLEATED RED BLOOD CELLS (BEAKER) (test 0 /100 WBC 0-0 oujf=347) LACTIC ACID, [id number] 12:59:00 Test Item Value Reference Range Comments LACTATE BLOOD VENOUS (2) (BEAKER) (test 1.8 mmol/L 0.5-2.2 zojf=5609) LEGIONELLA ANTIGEN, [id number] 12:41:00 Test Item Value Reference Range Comments L. PNEUMOPHILA SEROGP 1 Negative - see Negative for L. UR AG (BEAKER) (test comment pneumophila serogroup 1 qcim=7337) antigen, suggesting no recent or current infection with this serogroup. Legionellosis cannot be ruled out since other serogroups and species may cause disease. STREP PNEUMONIAE [id number] 12:40:00 Test Item Value Reference Range Comments STREP PNEUMONIAE ANTIGEN Presumptive negative for Presumptive negative for (BEAKER) (test pneumococcal pneumonia - pneumococcal pneumonia - agyj=1294) see comment see commen Presumptive negative for pneumococcal pneumonia, suggesting no current or recent pneumococcal infection. Infection due to S. pneumoniae cannot be ruled out since the antigen present in the sample may be below the detection limit of the test.RAPID INFLUENZA A&B [id number] 12:39:00 Test Item Value Reference Range Comments RAPID INFLUENZA A AG (BEAKER) (test Negative Negative, Inconclusive dcnz=2743) RAPID INFLUENZA B AG (BEAKER) (test Negative Negative, Inconclusive vzlx=0778) CREATININE, RANDOM [id number] 12:38:00 Test Item Value Reference Range Comments CREATININE URINE (BEAKER) (test vckb=520) 65.1 mg/dL Reference Range: No NormalsSODIUM, RANDOM [id number] 12:38:00 Test Item Value Reference Range Comments SODIUM URINE (BEAKER) (test mhcg=897) < meq/L Reference Range: No [id number] 10:58:00 Test Item Value Reference Range Comments PROCALCITONIN (BEAKER) (test qmsu=7091) 5.05 ng/mL <0.05 SEPSIS RISK (ng/mL)Low: 0.05-0.50Intermediate: 0.51-2.00High: & gt;=2.01B-TYPE NATRIURETIC FACTOR (BNP)2018-12-02 10:02:00 Test Item Value Reference Range Comments B-TYPE NATRIURETIC PEPTIDE (BEAKER) (test 201 pg/mL 0-100 pzac=114) URINALYSIS W/ REFLEX URINE [id number] 10:00:00 Test Item Value Reference Range Comments COLOR (BEAKER) (test ohkp=651) Light Yellow CLARITY (BEAKER) (test htdo=974) Clear SPECIFIC GRAVITY UA (BEAKER) (test rqum=523) 1.024 1.001-1.035 PH UA (BEAKER) (test yrnj=342) 5.0 5.0-8.0 PROTEIN UA (BEAKER) (test yzle=210) Negative Negative GLUCOSE UA (BEAKER) (test uyls=117) 100 mg/dL Negative KETONES UA (BEAKER) (test dhnj=105) Negative Negative BILIRUBIN UA (BEAKER) (test xglq=556) Negative Negative BLOOD UA (BEAKER) (test ytcu=762) Negative Negative NITRITE UA (BEAKER) (test ztfs=549) Negative Negative LEUKOCYTE ESTERASE UA (BEAKER) (test qpht=861) Moderate Negative UROBILINOGEN UA (BEAKER) (test eyvz=005) 0.2 mg/dL 0.2-1.0 RBC UA (BEAKER) (test rtxr=641) < /HPF WBC UA (BEAKER) (test ubqw=127) 13 /HPF BACTERIA (BEAKER) (test euyx=678) Rare SQUAMOUS EPITHELIAL (BEAKER) (test aqck=700) 1 /HPF HYALINE CASTS (BEAKER) (test aeqy=570) 2 /LPF CRYSTALS, URINE (BEAKER) (test cpop=7396) Rare SOURCE(BEAKER) (test xsnm=7522) PROTHROMBIN [id number] 09:44:00 Test Item Value Reference Range Comments PROTIME (BEAKER) (test ukpj=182) 14.4 seconds 11.7-14.7 INR (BEAKER) (test nbnm=049) 1.2 <=5.9 RECOMMENDED COUMADIN/WARFARIN INR THERAPY RANGESSTANDARD DOSE: 2.0 - 3.0 Includes: PROPHYLAXIS forvenous thrombosis, systemic embolization; TREATMENT for venous thrombosis and/or pulmonary embolus.HIGH RISK: Target INR is 2.5-3.5 for patients with mechanical heart valves.[id number] 09:44:00 Test Item Value Reference Range Comments PARTIAL THROMBOPLASTIN TIME (BEAKER) (test 28.1 seconds 22.5-36.0 lrbq=950) POCT-LACTIC ACID, [id number] 09:33:00 Test Item Value Reference Range Comments POC-LACTIC ACID, VENOUS 2.5 mmol/L 0.9-1.7 TESTED AT [place] [address] [address] (BEAKER) (test ryuw=7431) [place] [address] POCT-BLOOD GASES, [id number] 09:33:00 Test Item Value Reference Range Comments TEMP, CELSIUS-POC (BEAKER) 37.0 (test vjsv=7076) FIO2-POC (BEAKER) (test TESTED AT [address] jnpm=2261) [place] [id number] PH, ARTERIAL-POC (BEAKER) 7.357 7.350-7.450 (test ejim=0136) PCO2, ARTERIAL-POC (BEAKER) 49.5 mm Hg 35.0-45.0 (test shma=6625) PO2, ARTERIAL-POC (BEAKER) 28.0 mm Hg 80.0-90.0 (test qqpq=6150) SO2, ARTERIAL-POC (BEAKER) 49.0 % 96.0-97.0 (test bscj=2397) HCO3, ARTERIAL-POC (BEAKER) 27.7 meq/L 21.0-29.0 (test unik=5042) BASE EXCESS, ARTERIAL-POC 2.0 meq/L -2.0-3.0 (BEAKER) (test kkjl=5025) [id number] 09:33:00 Test Item Value Reference Range Comments POC-SODIUM (BEAKER) (test 130 meq/L 135-148 TESTED AT [address] ovar=6703) [place] [address] [id number] 09:33:00 Test Item Value Reference Range Comments POC-POTASSIUM (BEAKER) (test 5.4 meq/L 3.6-5.5 TESTED AT [address] jqzc=6068) [place] [address] [id number] 09:33:00 Test Item Value Reference Range Comments POC-GLUCOSE (BEAKER) (test 413 mg/dL 70-110 TESTED AT [address] ntyp=2213) [place] [address] POCT-CALCIUM [id number] 09:33:00 Test Item Value Reference Range Comments POC-CALCIUM IONIZED (BEAKER) 1.11 mmol/L 1.12-1.27 TESTED AT [address] (test nsrv=5472) [place] [address] [id number] 09:33:00 Test Item Value Reference Range Comments POC-HEMATOCRIT (BEAKER) (test 23 % 40-50 TESTED AT [address] ximx=4458) [place] [address] [id number] 09:33:00 Test Item Value Reference Range Comments POC-HEMOGLOBIN (BEAKER) 7.8 g/dL 13.0-16.8 TESTED AT [address] (test cpat=3625) [place] [address]TESTED AT [place] [address] CBC (HEMOGRAM ONLY)2018-12-02 09:32:00 Test Item Value Reference Range Comments WHITE BLOOD CELL COUNT (BEAKER) (test aujx=599) 16.6 K/ L 3.5-10.5 RED BLOOD CELL COUNT (BEAKER) (test xdyr=720) 2.67 M/ L 4.63-6.08 HEMOGLOBIN (BEAKER) (test txaz=062) 7.8 GM/DL 13.7-17.5 HEMATOCRIT (BEAKER) (test fcoi=520) 24.7 % 40.1-51.0 MEAN CORPUSCULAR VOLUME (BEAKER) (test ivlp=261) 92.5 fL 79.0-92.2 MEAN CORPUSCULAR HEMOGLOBIN (BEAKER) (test 29.2 pg 25.7-32.2 ysbg=579) MEAN CORPUSCULAR HEMOGLOBIN CONC (BEAKER) (test 31.6 GM/DL 32.3-36.5 prgn=649) RED CELL DISTRIBUTION WIDTH (BEAKER) (test 16.7 % 11.6-14.4 joft=802) PLATELET COUNT (BEAKER) (test euyl=437) 257 K/CU MM 150-450 MEAN PLATELET VOLUME (BEAKER) (test hpno=557) 11.1 fL 9.4-12.4 NUCLEATED RED BLOOD CELLS (BEAKER) (test 0 /100 WBC 0-0 khcv=738) RAD, CHEST, 1 VIEW, NON [id number] 08:46:00Reason for exam:->chf, leukocytosisShould this be performed at the bedside?->YesFINAL REPORT INDICATION: chf, leukocytosis COMPARISON: None TECHNIQUE : Singlefrontal view of the chest. FINDINGS: Lungs and pleura: Clear lungs. No effusion.Heart and mediastinum: Normal heart size. Unremarkable mediastinal contours.Osseous structures: No acute abnormality.Other: None. IMPRESSION: No acute intrathoracic abnormality. Signed: Colby Holguin Verified Date/ Time: 12/02/2018 08:46:49 Reading Location: [address] Neuro Reading Room POCT-GLUCOSE [id number] 07:49:00 Test Item Value Reference Range Comments POC-GLUCOSE METER (BEAKER) 411 mg/dL 70-110 TESTED AT [address] (test ffhx=3862) [facility] [address] [id number] 01:42:00 Test Item Value Reference Range Comments MAGNESIUM (BEAKER) (test henn=396) 2.4 mg/dL 1.6-2.6 BASIC METABOLIC [id number] 01:42:00 Test Item Value Reference Range Comments SODIUM (BEAKER) (test 134 meq/L 136-145 xnzt=494) POTASSIUM (BEAKER) (test 4.3 meq/L 3.5-5.1 pxcl=917) CHLORIDE (BEAKER) (test 96 meq/L 98-107 govr=239) CO2 (BEAKER) (test 25 meq/L 22-29 danv=004) BLOOD UREA NITROGEN 85 mg/dL 7-21 (BEAKER) (test mxra=627) CREATININE (BEAKER) (test 2.05 mg/dL 0.57-1.25 dura=933) GLUCOSE RANDOM (BEAKER) 395 mg/dL 70-105 (test eybb=096) CALCIUM (BEAKER) (test 8.4 mg/dL 8.4-10.2 wirp=302) EGFR (BEAKER) (test mL/min/1.73 sq m INSUFFICIENT CLINICAL DATA xqht=7872) TO CALCULATE ESTIMATED GFR. CBC (HEMOGRAM ONLY)2018-12-02 01:40:00 Test Item Value Reference Range Comments WHITE BLOOD CELL COUNT (BEAKER) (test csoq=643) 19.0 K/ L 3.5-10.5 RED BLOOD CELL COUNT (BEAKER) (test omvg=605) 2.42 M/ L 4.63-6.08 HEMOGLOBIN (BEAKER) (test hhor=664) 7.3 GM/DL 13.7-17.5 HEMATOCRIT (BEAKER) (test tsgs=105) 22.3 % 40.1-51.0 MEAN CORPUSCULAR VOLUME (BEAKER) (test zhkc=307) 92.1 fL 79.0-92.2 MEAN CORPUSCULAR HEMOGLOBIN (BEAKER) (test 30.2 pg 25.7-32.2 wqwf=203) MEAN CORPUSCULAR HEMOGLOBIN CONC (BEAKER) (test 32.7 GM/DL 32.3-36.5 dvfm=477) RED CELL DISTRIBUTION WIDTH (BEAKER) (test 17.3 % 11.6-14.4 vwch=753) PLATELET COUNT (BEAKER) (test gafn=118) 283 K/CU MM 150-450 MEAN PLATELET VOLUME (BEAKER) (test bknp=800) 10.7 fL 9.4-12.4 NUCLEATED RED BLOOD CELLS (BEAKER) (test 0 /100 WBC 0-0 thwa=914) POCT-GLUCOSE [id number] 00:51:00 Test Item Value Reference Range Comments POC-GLUCOSE METER (BEAKER) 425 mg/dL 70-110 Notified RYLEE OROPEZA/TESTED AT [facility] (test wgdq=4123) [address] [facility] [address]
[2018-12-22 22:42] LABS: Absolute Lymphocytes (CBC) 1.7 K/uL (0.7-4.9); Absolute Monocytes 0.9 K/uL (0.1-1.3); Basophils % 0.8 % (0-1.3); Eosinophils % 0.6 % (0-4.4); Hematocrit 22.1 % (39.6-49.0); Lymphocytes % 12.2 % (15.3-44.8); MPV 8.7 fL (7.6-11.3); Monocytes % 6.2 % (3.3-12.3); RBC Red Blood Cell Count 2.47 M/uL (4.33-5.43)
[2018-12-22 23:02] LABS: ALT/SGPT 23 U/L (12-78); AST/SGOT 10 U/L (15-37); Albumin 2.6 g/dL (3.4-5.0); Alkaline Phosphatase 117 U/L (45-117); BUN Blood Urea Nitrogen 69 mg/dL (7-18); Bicarbonate 29 mmol/L (21-32); Bilirubin Direct < 0.1 mg/dL (0-0.2); Bilirubin Total 0.3 mg/dL (0.2-1.0); Glucose Level 317 mg/dL (74-106); Lipase 220 U/L (73-393); Protein, Total 6.2 g/dL (6.4-8.2); Sodium Level 134 mmol/L (136-145)
[2018-12-22 23:03] LABS: Potassium 5.8 mmol/L (3.5-5.1)
[2018-12-23] MEDS ORDERED: MORPHINE 2 MG/ML SYR ONE (01:16)
[2018-12-23] MEDS ORDERED: NA CHLORIDE 0.9% 1,000 ML ONE (01:16)
[2018-12-23] MEDS ORDERED: ONDANSETRON 4 MG/2 ML VIAL ONE (01:16)
[2018-12-23] MEDS ORDERED: PANTOPRAZOLE 40 MG INJ ONE (01:16)
[2018-12-23] MEDS ORDERED: NA CHLORIDE 0.9% 250 ML ONE (01:16)
--- NOTE | 2018-12-23 01:52 | ER ---
Nurse's Notes [facility] Name: Jethro Burden Age: 73 yrs Sex: Male : 1945 Arrival Date: 12/22/2018 Time: 22:13 Bed 23 Private MD: Diagnosis: G.I. Bleeding Presentation: 12/22 22:16 Presenting complaint: EMS states: patient was complaining of lower abdominal pain with mg2 spitting out of bright red vomitus, was discharged 2 weeks ago for GI bleed. EKG was clear, BGL of 313 mg/dl. Transition of care: patient was not received from another setting of care. Onset of symptoms was December 22, 2018. Risk Assessment: Do you want to hurt yourself or someone else? Patient reports no desire to harm self or others. Initial Sepsis Screen: Does the patient meet any 2 criteria? No. Patient's initial sepsis screen is negative. Does the patient have a suspected source of infection? No. Patient's initial sepsis screen is negative. Care prior to arrival: None. 22:16 Method Of Arrival: EMS: [facility] mg2 22:16 Acuity: TAN 3 mg2 Historical: - Allergies: 22:21 NKDA; mg2 - Home Meds: 23:06 albuterol sulfate 2.5 mg /3 mL (0.083 %) Inhl nebu 3 mL Q4H prn [Active]; apixaban 5 mg mg2 Oral 1 tab 2 times per day [Active]; aspirin 81 mg Oral TbEC 1 tab once daily [Active]; atorvastatin 80 mg Oral tab 0.5 tab once daily [Active]; budesonide-formoterol inhalation 2 puffs 2 times per day [Active]; budesonide 3 mg Oral CECX 3 caps once daily [Active]; ferrous gluconate 324 mg (36 mg iron) Oral tab twice a day [Active]; docusate sodium 100 mg Oral cap 1 cap 2 times per day [Active]; furosemide 40 mg Oral tab 3 tabs in am and 2 tabs in pm [Active]; finasteride 5 mg Oral tab 1 tab once daily [Active]; insulin aspart subcutaneous 35 unit three times a day [Active]; gabapentin 100 mg Oral cap 1 caps 3 times per day [Active]; ipratropium bromide 0.02 % inhalation soln 2.5 mL every 6 hours [Active]; losartan 100 mg Oral tab 1 tab once daily [Active]; insulin detemir subcutaneous 70 units in am and 45 units in pm [Active]; magnesium oxide 420 mg Oral tab daily [Active]; pantoprazole 40 mg Oral TbEC 1 tab once daily [Active]; metoprolol tartrate 50 mg Oral tab 1 tab once daily [Active]; sotalol 120 mg Oral tab 1 tab 2 times per day [Active]; potassium chloride 10 mEq Oral cpER 2 caps once daily [Active]; - PMHx: 22:21 Atrial Fib; CHF; chronic wounds; COPD; Crohn's; Depression; Diabetes - IDDM; mg2 Hyperlipidemia; Hypertension; prostate problems; - PSHx: 22:21 bilateral leg amputation; hernia removal; colon resection; mg2 - Immunization history:: Flu vaccine is up to date. - Social history:: Smoking status: Patient/guardian denies using tobacco, Patient/guardian denies using alcohol, street drugs, IV drugs. - Ebola Screening: : No symptoms or risks identified at this time. Screenin:21 Abuse screen: Denies threats or abuse. Denies injuries from another. Nutritional mg2 screening: No deficits noted. Tuberculosis screening: No symptoms or risk factors identified. Fall Risk Secondary diagnosis (15 points) impaired mobility, IV access (20 points). Gait- Impaired (20 pts.). Assessment: 23:03 General: Appears in no apparent distress. comfortable, Behavior is calm, cooperative. mg2 Pain: Complains of pain in abdomen Pain does not radiate. Pain currently is 8 out of 10 on a pain scale. Quality of pain is described as aching, Pain began gradually, 1 day ago. Is intermittent. Neuro: Level of Consciousness is awake, alert, obeys commands, Oriented to person, place, time, situation. Cardiovascular: Capillary refill < 3 seconds Patient's skin is warm and dry. Respiratory: Airway is patent Respiratory effort is even, unlabored, Respiratory pattern is regular, symmetrical. GI: Abdomen is round non-distended, Reports lower abdominal pain, nausea, vomiting. : No signs and/or symptoms were reported regarding the genitourinary system. EENT: No signs and/or symptoms were reported regarding the EENT system. Derm: Skin is intact, is healthy with good turgor, Skin is pink, warm \T\ dry. normal. Musculoskeletal: Circulation, motion, and sensation intact. Capillary refill < 3 seconds. 12/23 00:54 Reassessment: patient agreed about the need for transfer. mg2 02:41 Reassessment: [facility] will call back to receive the report. mg2 Vital Signs: 12/22 22:18 BP 97 / 52; Pulse 78; Resp 18; Temp 98.0(O); Pulse Ox 98% 3 lpm ; Pain 8/10; mg2 23:03 BP 129 / 64; Pulse 70; Resp 18; Pulse Ox 100% on 3 lpm NC; mg2 12/23 00:13 BP 121 / 54; Pulse 71; Resp 18; Temp 98; Pulse Ox 100% on 3 lpm NC; mg2 01:18 BP 119 / 57; Pulse 67; Resp 18; Temp 98.4; Pulse Ox 100% on 3 lpm NC; mg2 02:42 BP 124 / 65; Pulse 68; Resp 18; Temp 98; Pulse Ox 100% on 3 lpm NC; Pain 1/10; mg2 ED Course: 12/22 22:13 Patient arrived in ED. fc 22:16 Sesar Woodruff, RN is Primary Nurse. mg2 22:18 Triage completed. mg2 22:21 Arm band placed on. mg2 23:03 Notified ED physician of a critical lab result(s). hgb 7.8, K-5.8. la1 23:04 Inserted saline lock: 20 gauge in right forearm, using aseptic technique. Blood mg2 collected. 23:05 Mo Gambino MD is Attending Physician. pkl 23:07 Patient has correct armband on for positive identification. Bed in low position. Call mg2 light in reach. Side rails up X2. Pulse ox on. NIBP on. 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 mg2 03:09 Patient transferred, IV remains in place. mg2 Administered Medications: 01:16 Drug: morphine 2 mg Route: IVP; Site: right forearm; mg2 02:19 Follow up: Response: No adverse reaction; Marked relief of symptoms mg2 01:16 Drug: Zofran 4 mg Route: IVP; Site: right forearm; mg2 02:19 Follow up: Response: No adverse reaction; Marked relief of symptoms mg2 01:18 Drug: NS 0.9% 500 ml Route: IV; Rate: bolus; Site: right forearm; mg2 03:13 Follow up: Response: No adverse reaction; Marked relief of symptoms; IV Status: mg2 Completed infusion 01:18 Drug: ProTONIX 8 mg/hr Route: IV; Rate: 25 ml/hr; Site: right forearm; mg2 02:19 Follow up: Response: No adverse reaction; IV Status: Infusion continued upon transfer mg2 01:45 Drug: NS 0.9% 1000 ml Route: IV; Rate: 100 ml/hr; Site: right forearm; mg2 02:20 Follow up: Response: No adverse reaction; IV Status: Infusion continued upon transfer mg2 02:29 Not Given (Physician Discretion): Kayexalate 60 grams PO once mg2 02:31 Drug: Kayexalate 30 grams Route: PO; mg2 02:32 Follow up: Response: No adverse reaction mg2 Point of Care Testing: Guaiac: 00:55 Stool Guaiac: Positive; Stool Hemoccult Control: Pass; mg2 Outcome: 01:51 ER care complete, transfer ordered by . pkkvng 03:10 Transferred by ground EMS to [facility], Transfer form completed. mg2 03:10 Condition: stable 03:10 Instructed on the need for transfer, Demonstrated understanding of instructions. 03:11 Patient left the ED. mg2 Signatures: Mo Gambino MD MD pkl Chretien, Felicia, RN RN Oc Bustamante RN RN laSesar Mckenna RN RN mg2 Corrections: (The following items were deleted from the chart) 00:22 00:13 BP 107 / 55; Pulse 71bpm; Resp 18bpm; Pulse Ox 100% 3 lpm Nasal Cannula; Temp mg2 98F; mg2 00:55 05/25 23:04 No provider procedures requiring assistance completed. mg2 mg2
--- NOTE | 2018-12-23 01:53 | EDPHYS ---
Physician Documentation [facility] Name: Jethro Burden Age: 73 yrs Sex: Male : 1945 Arrival Date: 12/22/2018 Time: 22:13 Bed 23 Private MD: ED Physician Mo Gambino HPI: 12/23 00:44 This 73 yrs old Male presents to ER via EMS with complaints of Vomiting, pkl Abdominal Pain. 00:44 The patient presents to the emergency department vomiting blood, with rectal bleeding, pkl melena. Onset: The symptoms/episode began/occurred today. Abdominal pain: located in the right lower quadrant and left lower quadrant. The patient has been recently seen by a physician: Admitted to [facility] 3 weeks ago for GI Bleeding. Had blood transfusion there. Historical: - Allergies: 12/22 22:21 NKDA; mg2 - Home Meds: 23:06 albuterol sulfate 2.5 mg /3 mL (0.083 %) Inhl nebu 3 mL Q4H prn [Active]; apixaban 5 mg mg2 Oral 1 tab 2 times per day [Active]; aspirin 81 mg Oral TbEC 1 tab once daily [Active]; atorvastatin 80 mg Oral tab 0.5 tab once daily [Active]; budesonide-formoterol inhalation 2 puffs 2 times per day [Active]; budesonide 3 mg Oral CECX 3 caps once daily [Active]; ferrous gluconate 324 mg (36 mg iron) Oral tab twice a day [Active]; docusate sodium 100 mg Oral cap 1 cap 2 times per day [Active]; furosemide 40 mg Oral tab 3 tabs in am and 2 tabs in pm [Active]; finasteride 5 mg Oral tab 1 tab once daily [Active]; insulin aspart subcutaneous 35 unit three times a day [Active]; gabapentin 100 mg Oral cap 1 caps 3 times per day [Active]; ipratropium bromide 0.02 % inhalation soln 2.5 mL every 6 hours [Active]; losartan 100 mg Oral tab 1 tab once daily [Active]; insulin detemir subcutaneous 70 units in am and 45 units in pm [Active]; magnesium oxide 420 mg Oral tab daily [Active]; pantoprazole 40 mg Oral TbEC 1 tab once daily [Active]; metoprolol tartrate 50 mg Oral tab 1 tab once daily [Active]; sotalol 120 mg Oral tab 1 tab 2 times per day [Active]; potassium chloride 10 mEq Oral cpER 2 caps once daily [Active]; - PMHx: 22:21 Atrial Fib; CHF; chronic wounds; COPD; Crohn's; Depression; Diabetes - IDDM; mg2 Hyperlipidemia; Hypertension; prostate problems; - PSHx: 22:21 bilateral leg amputation; hernia removal; colon resection; mg2 - Immunization history:: Flu vaccine is up to date. - Social history:: Smoking status: Patient/guardian denies using tobacco, Patient/guardian denies using alcohol, street drugs, IV drugs. - Ebola Screening: : No symptoms or risks identified at this time. ROS: 12/23 00:44 Eyes: Negative for injury, pain, redness, and discharge, ENT: Negative for injury, pkl pain, and discharge, Neck: Negative for injury, pain, and swelling, Cardiovascular: Negative for chest pain, palpitations, and edema, Respiratory: Negative for shortness of breath, cough, wheezing, and pleuritic chest pain. Abdomen/GI: Positive for abdominal pain, nausea and vomiting, rectal bleeding, of the right upper quadrant, left upper quadrant, right lower quadrant and left lower quadrant. Back: Negative for acute changes. : Negative for urinary symptoms. MS/extremity: Negative for acute changes. Skin: Negative for rash. Neuro: Negative for altered mental status. Exam: 00:44 Head/Face: Normocephalic, atraumatic. Eyes: Pupils equal round and reactive to light, pkl extra-ocular motions intact. Lids and lashes normal. Conjunctiva and sclera are non-icteric and not injected. Cornea within normal limits. Periorbital areas with no swelling, redness, or edema. ENT: Nares patent. No nasal discharge, no septal abnormalities noted. Tympanic membranes are normal and external auditory canals are clear. Oropharynx with no redness, swelling, or masses, exudates, or evidence of obstruction, uvula midline. Mucous membranes moist. Neck: Trachea midline, no thyromegaly or masses palpated, and no cervical lymphadenopathy. Supple, full range of motion without nuchal rigidity, or vertebral point tenderness. No Meningismus. Chest/axilla: Normal chest wall appearance and motion. Nontender with no deformity. No lesions are appreciated. Cardiovascular: Regular rate and rhythm with a normal S1 and S2. No gallops, murmurs, or rubs. Normal PMI, no JVD. No pulse deficits. Respiratory: Lungs have equal breath sounds bilaterally, clear to auscultation and percussion. No rales, rhonchi or wheezes noted. No increased work of breathing, no retractions or nasal flaring. 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 00:44 Back: Exam negative for acute changes. 00:44 : Exam negative for acute changes. 00:44 Musculoskeletal/extremity: Exam is negative for acute changes. 00:44 Skin: Exam negative for rash. 00:44 Neuro: Orientation: is normal, Mentation: is normal, Cranial nerves: grossly normal, Motor: moves all fours. Vital Signs: 12/22 22:18 BP 97 / 52; Pulse 78; Resp 18; Temp 98.0(O); Pulse Ox 98% 3 lpm ; Pain 8/10; mg2 23:03 BP 129 / 64; Pulse 70; Resp 18; Pulse Ox 100% on 3 lpm NC; mg2 12/23 00:13 BP 121 / 54; Pulse 71; Resp 18; Temp 98; Pulse Ox 100% on 3 lpm NC; mg2 01:18 BP 119 / 57; Pulse 67; Resp 18; Temp 98.4; Pulse Ox 100% on 3 lpm NC; mg2 02:42 BP 124 / 65; Pulse 68; Resp 18; Temp 98; Pulse Ox 100% on 3 lpm NC; Pain 1/10; mg2 MDM: 12/22 23:05 Patient medically screened. pkl 12/23 01:50 Data reviewed: vital signs, nurses notes, lab test result(s). pkl 12/22 22:20 Order name: Basic Metabolic Panel mg2 12/22 22:20 Order name: CBC with Diff; Complete Time: 23:50 mg2 12/22 22:20 Order name: Creatinine for Radiology; Complete Time: 23:50 mg2 12/22 22:20 Order name: Hepatic Function; Complete Time: 23:50 mg2 12/22 22:20 Order name: Lipase; Complete Time: 23:50 mg2 05/25 22:23 Order name: Basic Metabolic Panel; Complete Time: 23:50 EDMS 12/22 23:47 Order name: TS; Complete Time: 01:52 mg2 12/22 22:20 Order name: IV Saline Lock; Complete Time: 22:33 mg2 12/22 22:20 Order name: Labs collected and sent; Complete Time: 22:33 mg2 Administered Medications: 01:16 Drug: morphine 2 mg Route: IVP; Site: right forearm; mg2 02:19 Follow up: Response: No adverse reaction; Marked relief of symptoms mg2 01:16 Drug: Zofran 4 mg Route: IVP; Site: right forearm; mg2 02:19 Follow up: Response: No adverse reaction; Marked relief of symptoms mg2 01:18 Drug: NS 0.9% 500 ml Route: IV; Rate: bolus; Site: right forearm; mg2 03:13 Follow up: Response: No adverse reaction; Marked relief of symptoms; IV Status: mg2 Completed infusion 01:18 Drug: ProTONIX 8 mg/hr Route: IV; Rate: 25 ml/hr; Site: right forearm; mg2 02:19 Follow up: Response: No adverse reaction; IV Status: Infusion continued upon transfer mg2 01:45 Drug: NS 0.9% 1000 ml Route: IV; Rate: 100 ml/hr; Site: right forearm; mg2 02:20 Follow up: Response: No adverse reaction; IV Status: Infusion continued upon transfer mg2 02:29 Not Given (Physician Discretion): Kayexalate 60 grams PO once mg2 02:31 Drug: Kayexalate 30 grams Route: PO; mg2 02:32 Follow up: Response: No adverse reaction mg2 Point of Care Testing: Guaiac: 00:55 Stool Guaiac: Positive; Stool Hemoccult Control: Pass; mg2 Disposition: 12/23/18 01:51 Transfer ordered to [facility]. Diagnosis is G.I. Bleeding. - Reason for transfer: Higher level of care. - Accepting physician is Dr. Reinier Daugherty. - Condition is Stable. - Problem is new. - Symptoms are unchanged. Signatures: Dispatcher [employer] [facility] Mo Gambino MD MD pkl Gardose, Michele RN RN mg2 Corrections: (The following items were deleted from the chart) 00:15 12/22 23:48 ABO/RH TYPING+[id number] ordered. [facility] 12/23 01:58 01:51 12/23/2018 01:51 Transfer ordered to [facility]. Diagnosis is pkl G.I. Bleeding. Reason for transfer: Higher level of care. Accepting physician is Dr. Aguilera. Condition is Stable. Problem is new. Symptoms are unchanged. pkl 03:11 01:58 12/23/2018 01:51 Transfer ordered to [facility]. Diagnosis is mg2 G.I. Bleeding. Reason for transfer: Higher level of care. Accepting physician is Dr. Reinier Daugherty. Condition is Stable. Problem is new. Symptoms are unchanged. pkl
[2018-12-23] MEDS ORDERED: SOD POLYSTYREN SUL 15 GM/60 ML UCUP ONE (02:39)
[2018-12-23 03:30] VITALS: O2SAT 100
[2018-12-23 03:36] VITALS: BP 124/65; TEMP 98
== END 2018-12-23 03:11 | disposition short-term general hospital (02) ==
LOC: ER 22:06
DX: K92.2 Gastrointestinal hemorrhage, unspecified (principal); I48.91 Unspecified atrial fibrillation; I11.0 Hypertensive heart disease with heart failure; I50.9 Heart failure, unspecified; J44.9 Chronic obstructive pulmonary disease, unspecified; K50.90 Crohn's disease, unspecified, without complications; F32.9 Major depressive disorder, single episode, unspecified; E11.9 Type 2 diabetes mellitus without complications; E78.5 Hyperlipidemia, unspecified; I10 Essential (primary) hypertension; Z79.82 Long term (current) use of aspirin; Z79.4 Long term (current) use of insulin
CPT/HCPCS: 96365; 96361; 85025; 80048; 36415; 86900; 86850; 86901; 80076; 83690; 96375; 99285; C9113; J2270; J7030; J2405

== ENCOUNTER 2019-01-12 16:01 | Emergency (ER) | payer OTHER ==
--- OUTSIDE RECORDS SUMMARY | 2019-01-12 16:04 | XMS REPORT | Clinical Summary ---
:1945 Author Organization [facility] Address [address] [place] [address] Care Team Providers Name Role Phone Asked, [...] Not on file Results Not on fileafter 01/11/2018 Advance Directives Patient has advance care planning documents, and code status on file. For more information, please contact:Ari Hernandez[address] [place] [address] Code Status Date Activated Date Inactivated Comments Full Code 05/24/2016 9:28 PM 05/26/2016 4:41 PM Code Status decision reached by: Patient
--- OUTSIDE RECORDS SUMMARY | 2019-01-12 16:07 | XMS REPORT | Clinical Summary ---
:1945 Author Organization [facility] Address [address] [place] [address] Care Team Providers Name Role Phone Pcp, [...] MG mouth daily. tabletIndications: in the morning gabapentin Take 100 mg by 0 Active (NEURONTIN) 100 MG mouth 3 (three) capsule times daily. insulin aspart U-100 Inject 35 Units 0 Active (NOVOLOG) 100 subcutaneously 3 unit/mL injection (three) times daily before meals. ipratropium Take 500 mcg by 0 Active [...] mg total) by mouth 9 020 daily. insulin detemir Inject 45 Units 10 mL 0 Active U-100 (LEVEMIR) 100 subcutaneously 9 unit/mL daily. injectionIndications : type 1 diabetes mellitus, type 2 diabetes mellitus, in the morning insulin detemir Inject 25 Units 10 mL 0 Active U-100 (LEVEMIR) 100 subcutaneously 9 unit/mL nightly. injectionIndications : type 1 diabetes mellitus, type 2 diabetes mellitus, in PM furosemide (LASIX) Take 80 mg by 0 Discontinued 40 MG mouth daily. 019 tabletIndications: in the afternoon insulin detemir Inject 70 Units 0 Discontinued U-100 (LEVEMIR) 100 subcutaneously 019 unit/mL daily. injectionIndications : type 1 diabetes mellitus, type 2 diabetes mellitus, in the morning insulin detemir Inject 45 Units 0 Discontinued U-100 (LEVEMIR) 100 subcutaneously 019 unit/mL nightly. injectionIndications : type 1 diabetes mellitus, type 2 diabetes mellitus, in PM pantoprazole Take 40 mg by 0 Discontinued (PROTONIX) 40 MG mouth daily. 019 tablet Active Problems Problem Noted Date Chronic diastolic CHF (congestive heart failure) 12/27/2018 Acute GI bleeding 12/25/2018 Severe sepsis (CODE) 12/02/2018 GIB (gastrointestinal bleeding) 12/01/2018 Encounters Date Type Specialty Care Team Description 12/23/2018 Anesthesia Event Gastroenterology Bonnie Rogers CRNA 12/23/2018 Surgery Gastroenterology Edel Washington UPPER MD ENDOSCOPY,BIOPSY 12/23/2018 [facility] Cardiology Patricia Vannshavonne Severe sepsis without septic shock (CODE) (HCC) (Primary Dx); - Encounter MD Nemesio Gastrointestinal hemorrhage, unspecified gastrointestinal hemorrhage type; 12/28/2018 Aquilino, Acute blood loss anemia; Rubens Essential hypertension; MD Klarissa Hyperglycemia; Sandra Guo Chronic systolic heart failure (HCC); MD Jody Peripheral arterial disease ([facility]); Acute GI bleeding; PAF (paroxysmal atrial fibrillation) (HCC) 12/03/2018 Anesthesia Event Gastroenterology Gokul Laura MD 12/03/2018 Surgery Gastroenterology Jose Kwon UPPER ENDOSCOPY MD Dieudonne 12/03/2018 Travel 12/02/2018 Orders Only General Internal Medicine 12/01/2018 [facility] Cardiology Kellie Matson Gastrointestinal hemorrhage , unspecified gastrointestinal hemorrhage type (Primary Dx); - Encounter MD Tessa Severe sepsis without septic shock (CODE) (HCC); 12/10/2018 Lillian Campbell Anemia, blood loss; MD Samson BLANK (acute kidney injury) ([facility]); Emily, Acute urinary retention; Dieudonne Stanley, Acute respiratory failure with hypoxia ([facility]); Crohn's disease of colon with complication ([facility]); Pramod Chronic obstructive pulmonary disease, unspecified COPD type ( [facility]); Rubens 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) ([facility]); MD Al Atrial fibrillation with rapid ventricular response ([facility]); Noa Chawla Coronary artery disease involving [place] coronary artery of [place]k heart without angina pectoris; MD Gretchen History of PTCA; Earline Coats Anemia associated with acute blood loss; MD Martha Atrial fibrillation, rapid ([facility]); Pulmonary emphysema, unspecified emphysema type ([facility]); Peptic ulcer disease with hemorrhage; Paroxysmal atrial fibrillation (HCC); Severe sepsis ([facility]); Acute respiratory failure with hypoxia and hypercarbia ([facility]); Chronic kidney disease, stage 3 ([facility]); Diabetes mellitus type 2 in obese (HCC); MARINO and COPD overlap syndrome (HCC); COPD with acute exacerbation (HCC); Severe sepsis (CODE) (HCC) after 01/11/2018 Social History Tobacco Use Types Packs/Day Years [...] Vital Sign Reading Time Taken Blood Pressure 136/66 12/28/2018 11:40 AM CDT Pulse 79 12/28/2018 4:25 PM CDT Temperature 36.6 C (97.8 F) 12/28/2018 11:40 AM CDT Respiratory Rate 18 12/28/2018 4:25 PM CDT Oxygen Saturation 94% 12/28/2018 4:25 PM CDT Inhaled Oxygen Concentration 3% 12/26/2018 4:00 AM CDT Weight 91.8 kg (202 lb 6.4 oz) 12/28/2018 2:00 PM CDT Height 182.9 cm (6') 12/23/2018 4:45 AM CDT Body Mass Index 27.45 12/28/2018 2:00 PM CDT Plan of Treatment Not on file Procedures Procedure Name Priority Date/Time Associated Diagnosis Comments REPORT OF PROCEDURE - 12/31/2018 ENDOSCOPY SCAN 11:00 AM CDT RHYTHM STRIP - SCAN 12/31/2018 10:01 AM CDT ECHOCARDIOGRAM REPORT 12/28/2018 - SCAN 9:01 PM CDT HEMOGLOBIN AND Routine 12/28/2018 Results for HEMATOCRIT 12:23 PM CDT this procedure are in the results section. POCT-GLUCOSE METER Routine 12/28/2018 Results for 10:58 AM CDT this procedure are in the results section. POCT-GLUCOSE METER Routine 12/28/2018 Results for 7:59 AM CDT this procedure are in the results section. POCT-GLUCOSE METER Routine 12/27/2018 Results for 11:09 PM CDT this procedure are in the results section. POCT-GLUCOSE METER Routine 12/27/2018 Results for 6:28 PM CDT this procedure are in the results section. TRANSFUSION SERVICE 12/27/2018 REPORT - SCAN 6:01 PM CDT TRANSESOPHAGEAL ECHO Routine 12/27/2018 Results for 5:01 PM CDT this procedure are in the results section. CT HEART WITH/WITHOUT Routine 12/27/2018 Results for GATING & 3D 12:10 PM CDT this procedure are in the results section. HEMOGLOBIN AND Routine 12/27/2018 Results for HEMATOCRIT 5:05 AM CDT this procedure are in the results section. HEMOGLOBIN AND Routine 12/26/2018 Results for HEMATOCRIT 11:11 PM CDT this procedure are in the results section. POCT-GLUCOSE METER Routine 12/26/2018 Results for 8:16 PM CDT this procedure are in the results section. HEMOGLOBIN AND Routine 12/26/2018 Results for HEMATOCRIT 7:26 PM CDT this procedure are in the results section. TRANSFUSION SERVICE 12/26/2018 REPORT - SCAN 6:04 PM CDT HEMOGLOBIN AND Routine 12/26/2018 Results for HEMATOCRIT 5:05 PM CDT this procedure are in the results section. POCT-GLUCOSE METER Routine 12/26/2018 Results for 5:00 PM CDT this procedure are in the results section. HEMOGLOBIN AND Routine 12/26/2018 Results for HEMATOCRIT 12:01 PM CDT this procedure are in the results section. POCT-GLUCOSE METER Routine 12/26/2018 Results for 11:28 AM CDT this procedure are in the results section. HEMOGLOBIN AND Routine 12/26/2018 Results for HEMATOCRIT 9:41 AM CDT this procedure are in the results section. POCT-GLUCOSE METER Routine 12/26/2018 Results for 7:34 AM CDT this procedure are in the results section. CBC W/PLT COUNT & AUTO Routine 12/26/2018 Results for DIFFERENTIAL 3:54 AM CDT this procedure are in the results section. CBC W/PLT COUNT & AUTO Routine 12/26/2018 Results for DIFFERENTIAL 3:54 AM CDT this procedure are in the results section. CBC W/PLT COUNT & AUTO Routine 12/26/2018 Results for DIFFERENTIAL 1:33 AM CDT this procedure are in the results section. TYPE AND SCREEN, Routine 12/26/2018 Results for AUTOMATED 1:33 AM CDT this procedure are in the results section. CBC W/PLT COUNT & AUTO Routine 12/26/2018 Results for DIFFERENTIAL 1:33 AM CDT this procedure are in the results section. PREPARE LEUKO-REDUCED Routine 12/26/2018 Results for RBC 1:04 AM CDT this procedure are in the results section. PREPARE LEUKO-REDUCED Routine 12/25/2018 Results for RBC 11:54 PM CDT this procedure are in the results section. HEMOGLOBIN AND Routine 12/25/2018 Results for HEMATOCRIT 11:37 PM CDT this procedure are in the results section. POCT-GLUCOSE METER Routine 12/25/2018 Results for 9:20 PM CDT this procedure are in the results section. HEMOGLOBIN AND Routine 12/25/2018 Results for HEMATOCRIT 8:31 PM CDT this procedure are in the results section. TRANSFUSION SERVICE 12/25/2018 REPORT - SCAN 6:00 PM CDT POCT-GLUCOSE METER Routine 12/25/2018 Results for 5:10 PM CDT this procedure are in the results section. HEMOGLOBIN AND Routine 12/25/2018 Results for HEMATOCRIT 3:07 PM CDT this procedure are in the results section. HEMOGLOBIN AND Routine 12/25/2018 Results for HEMATOCRIT 11:27 AM CDT this procedure are in the results section. POCT-GLUCOSE METER Routine 12/25/2018 Results for 11:14 AM CDT this procedure are in the results section. POCT-GLUCOSE METER Routine 12/25/2018 Results for 7:19 AM CDT this procedure are in the results section. CBC W/PLT COUNT & AUTO Routine 12/25/2018 Results for DIFFERENTIAL 5:28 AM CDT this procedure are in the results section. HEMOGLOBIN AND Routine 12/25/2018 Results for HEMATOCRIT 5:28 AM CDT this procedure are in the results section. COMPREHENSIVE Routine 12/25/2018 Results for METABOLIC PANEL 5:28 AM CDT this procedure are in the results section. CBC W/PLT COUNT & AUTO Routine 12/25/2018 Results for DIFFERENTIAL 5:28 AM CDT this procedure are in the results section. PREPARE LEUKO-REDUCED Routine 12/25/2018 Results for RBC 12:41 AM CDT this procedure are in the results section. PREPARE LEUKO-REDUCED Routine 12/25/2018 Results for RBC 12:41 AM CDT this procedure are in the results section. HEMOGLOBIN AND Routine 12/25/2018 Results for HEMATOCRIT 12:09 AM CDT this procedure are in the results section. TRANSFUSE Routine 12/24/2018 LEUKO-REDUCED RED 10:14 PM CDT BLOOD CELLS POCT-GLUCOSE METER Routine 12/24/2018 Results for 10:08 PM CDT this procedure are in the results section. TRANSFUSION SERVICE 12/24/2018 REPORT - SCAN 6:00 PM CDT POCT-GLUCOSE METER Routine 12/24/2018 Results for 4:48 PM CDT this procedure are in the results section. HEMOGLOBIN AND Routine 12/24/2018 Results for HEMATOCRIT 2:42 PM CDT this procedure are in the results section. POCT-GLUCOSE METER Routine 12/24/2018 Results for 11:35 AM CDT this procedure are in the results section. POCT-GLUCOSE METER Routine 12/24/2018 Results for 9:05 AM CDT this procedure are in the results section. HEMOGLOBIN AND Routine 12/24/2018 Results for HEMATOCRIT 8:54 AM CDT this procedure are in the results section. POCT-GLUCOSE METER Routine 12/24/2018 Results for 5:42 AM CDT this procedure are in the results section. CBC W/PLT COUNT & AUTO Routine 12/24/2018 Results for DIFFERENTIAL 5:35 AM CDT this procedure are in the results section. COMPREHENSIVE Routine 12/24/2018 Results for METABOLIC PANEL 5:35 AM CDT this procedure are in the results section. CBC W/PLT COUNT & AUTO Routine 12/24/2018 Results for DIFFERENTIAL 5:35 AM CDT this procedure are in the results section. HEMOGLOBIN AND Routine 12/24/2018 Results for HEMATOCRIT 1:56 AM CDT this procedure are in the results section. POCT-GLUCOSE METER Routine 12/23/2018 Results for 10:52 PM CDT this procedure are in the results section. HEMOGLOBIN AND Routine 12/23/2018 Results for HEMATOCRIT 9:10 PM CDT this procedure are in the results section. POCT-GLUCOSE METER Routine 12/23/2018 Results for 6:12 PM CDT this procedure are in the results section. BASIC METABOLIC PANEL Routine 12/23/2018 Results for (7) 4:10 PM CDT this procedure are in the results section. HEMOGLOBIN AND Routine 12/23/2018 Results for HEMATOCRIT 4:09 PM CDT this procedure are in the results section. REPORT OF PROCEDURE - 12/23/2018 ENDOSCOPY URL 3:37 PM CDT TISSUE EXAM AP Routine 12/23/2018 Results for 3:26 PM CDT this procedure are in the results section. TRANSFUSE Routine 12/23/2018 LEUKO-REDUCED RED 2:18 PM CDT BLOOD CELLS UPPER ENDOSCOPY,BIOPSY 12/23/2018 Gastrointestinal 1:17 PM CDT hemorrhage, unspecified gastrointestinal hemorrhage type POCT-GLUCOSE METER Routine 12/23/2018 Results for 12:28 PM CDT this procedure are in the results section. TROPONIN I STAT 12/23/2018 Results for 12:22 PM CDT this procedure are in the results section. HEMOGLOBIN AND Routine 12/23/2018 Results for HEMATOCRIT 12:22 PM CDT this procedure are in the results section. TRANSFUSE Routine 12/23/2018 LEUKO-REDUCED RED 9:11 AM CDT BLOOD CELLS ECG 12-LEAD Routine 12/23/2018 6:25 AM CDT Procedure Note - Interface, External Ris In - 12/23/2018 8:40 AM CDT Ventricular Rate 80 BPM Atrial Rate 80 BPM P-R Interval 170 ms QRS Duration 90 ms Q-T Interval 428 ms QTC Calculation(Bazett) 493 ms P [place] 258 degrees R [place] 70 degrees T [place] 72 degrees Unusual P axis, possible ectopic atrial rhythm with undetermined rhythm irregularity Nonspecific ST abnormality Prolonged QT Abnormal ECG When compared with ECG of 23-DEC-2018 06:24, No significant change was found ECG 12-LEAD Routine 12/23/2018 6:25 AM CDT ECG 12-LEAD Routine 12/23/2018 6:24 AM CDT Procedure Note - Interface, External Ris In - 12/23/2018 8:39 AM CDT Ventricular Rate 80 BPM Atrial Rate 80 BPM P-R Interval 170 ms QRS Duration 94 ms Q-T Interval 436 ms QTC Calculation(Bazett) 502 ms P [place] 238 degrees R [place] 71 degrees T [place] 55 degrees Unusual P axis, possible ectopic atrial rhythm Prolonged QT Abnormal ECG When compared with ECG of 05-DEC-2018 17:24, Ectopic atrial rhythm has replaced Sinus rhythm Vent. rate has decreased BY 53 BPM BLOOD CULTURE Routine 12/23/2018 6:24 AM Results for this IDENTIFICATION PANEL CDT procedure are in the results section. BLOOD CULTURE Routine 12/23/2018 6:24 AM Results for this CDT procedure are in the results section. BLOOD GAS, ARTERIAL Routine 12/23/2018 6:17 AM Results for this CDT procedure are in the results section. PHOSPHORUS Routine 12/23/2018 6:15 AM Results for this CDT procedure are in the results section. MAGNESIUM Routine 12/23/2018 6:15 AM Results for this CDT procedure are in the results section. TROPONIN I STAT 12/23/2018 6:15 AM Results for this CDT procedure are in the results section. BLOOD CULTURE Routine 12/23/2018 6:15 AM Results for this CDT procedure are in the results section. XR ABDOMEN 1 VIEW Routine 12/23/2018 5:54 AM Results for this CDT procedure are in the results section. XR CHEST 1 VIEW Routine 12/23/2018 5:52 AM Results for this PORTABLE/BEDSIDE CDT procedure are in the results section. TYPE AND SCREEN, Routine 12/23/2018 5:43 AM Results for this AUTOMATED CDT procedure are in the results section. FIBRINOGEN Routine 12/23/2018 5:43 AM Results for this CDT procedure are in the results section. PROTHROMBIN TIME/INR Routine 12/23/2018 5:43 AM Results for this CDT procedure are in the results section. CBC W/PLT COUNT & AUTO Routine 12/23/2018 5:37 AM Results for this DIFFERENTIAL CDT procedure are in the results section. CBC W/PLT COUNT & AUTO Routine 12/23/2018 5:37 AM Results for this DIFFERENTIAL CDT procedure are in the results section. COMPREHENSIVE METABOLIC Routine 12/23/2018 5:37 AM Results for this PANEL CDT procedure are in the results section. LACTIC ACID, VENOUS Routine 12/23/2018 5:37 AM Results for this CDT procedure are in the results section. TROPONIN I STAT 12/23/2018 5:37 AM Results for this CDT procedure are in the results section. RHYTHM STRIP - SCAN 12/12/2018 4:11 PM CDT REPORT OF PROCEDURE - 12/12/2018 7:20 AM ENDOSCOPY SCAN CDT RHYTHM STRIP - SCAN 12/12/2018 7:20 AM CDT PERIPHERAL VASCULAR 12/10/2018 9:12 PM REPORT - SCAN CDT TRANSFUSION SERVICE 12/10/2018 5:50 PM REPORT - SCAN CDT POCT-GLUCOSE METER Routine 12/10/2018 5:12 PM Results for this CDT procedure are in the results section. POCT-GLUCOSE METER Routine 12/10/2018 1:31 PM Results for this CDT procedure are in the results section. VENOUS DOPPLER ARM, STAT 12/10/2018 12:24 PM Results for this RIGHT CDT procedure are in the results section. POCT-GLUCOSE METER Routine 12/10/2018 7:39 AM Results for this CDT procedure are in the results section. (CELLAVISION MANUAL Routine 12/10/2018 7:09 AM Results for this DIFF) CDT procedure are in the results section. CBC W/PLT COUNT & AUTO Routine 12/10/2018 7:09 AM Results for this DIFFERENTIAL CDT procedure are in the results section. MAGNESIUM Routine 12/10/2018 7:09 AM Results for this CDT procedure are in the results section. CBC W/PLT COUNT & AUTO Routine 12/10/2018 7:09 AM Results for this DIFFERENTIAL CDT procedure are in the results section. BASIC METABOLIC PANEL Routine 12/10/2018 7:09 AM Results for this (7) CDT procedure are in the results section. PREPARE LEUKO-REDUCED Routine 12/09/2018 11:54 PM Results for this RBC CDT procedure are in the results section. POCT-GLUCOSE METER Routine 12/09/2018 9:40 PM Results for this CDT procedure are in the results section. TRANSFUSION SERVICE 12/09/2018 5:50 PM REPORT - SCAN CDT POCT-GLUCOSE METER Routine 12/09/2018 5:18 PM Results for this CDT procedure are in the results section. POCT-GLUCOSE METER Routine 12/09/2018 2:41 PM Results for this CDT procedure are in the results section. POCT-GLUCOSE METER Routine 12/09/2018 12:01 PM Results for this CDT procedure are in the results section. POCT-GLUCOSE METER Routine 12/09/2018 8:13 AM Results for this CDT procedure are in the results section. (CELLAVISION MANUAL Routine 12/09/2018 3:19 AM Results for this DIFF) CDT procedure are in the results section. CBC W/PLT COUNT & AUTO Routine 12/09/2018 3:19 AM Results for this DIFFERENTIAL CDT procedure are in the results section. VANCOMYCIN LEVEL, TROUGH Timed 12/09/2018 3:19 AM Results for this CDT procedure are in the results section. MAGNESIUM Routine 12/09/2018 3:19 AM Results for this CDT procedure are in the results section. CBC W/PLT COUNT & AUTO Routine 12/09/2018 3:19 AM Results for this DIFFERENTIAL CDT procedure are in the results section. BASIC METABOLIC PANEL Routine 12/09/2018 3:19 AM Results for this (7) CDT procedure are in the results section. POCT-GLUCOSE METER Routine 12/08/2018 10:10 PM Results for this CDT procedure are in the results section. TRANSFUSE LEUKO-REDUCED Routine 12/08/2018 9:31 PM RED BLOOD CELLS CDT POCT-GLUCOSE METER Routine 12/08/2018 4:19 PM Results for this CDT procedure are in the results section. POCT-GLUCOSE METER Routine 12/08/2018 11:47 AM Results for this CDT procedure are in the results section. PROCALCITONIN Routine 12/08/2018 8:40 AM Results for this CDT procedure are in the results section. TYPE AND SCREEN, Routine 12/08/2018 8:22 AM Results for this AUTOMATED CDT procedure are in the results section. POCT-GLUCOSE METER Routine 12/08/2018 8:02 AM Results for this CDT procedure are in the results section. CBC W/PLT COUNT & AUTO Routine 12/08/2018 4:10 AM Results for this DIFFERENTIAL CDT procedure are in the results section. MAGNESIUM Routine 12/08/2018 4:10 AM Results for this CDT procedure are in the results section. BASIC METABOLIC PANEL Routine 12/08/2018 4:10 AM Results for this (7) CDT procedure are in the results section. CBC W/PLT COUNT & AUTO Routine 12/08/2018 4:10 AM Results for this DIFFERENTIAL CDT procedure are in the results section. POCT-GLUCOSE METER Routine 12/07/2018 9:57 PM Results for this CDT procedure are in the results section. POCT-GLUCOSE METER Routine 12/07/2018 5:37 PM Results for this CDT procedure are in the results section. POCT-GLUCOSE METER Routine 12/07/2018 12:18 PM Results for this CDT procedure are in the results section. US GUIDE, VASCULAR Routine 12/07/2018 12:09 PM Severe sepsis Results for this ACCESS CDT (CODE) (HCC) procedure are in the results section. INSERT NON-TUNNEL CV Routine 12/07/2018 12:09 PM Severe sepsis Results for this CATH CDT (CODE) (HCC) procedure are in the results section. POCT-GLUCOSE METER Routine 12/07/2018 6:31 AM Results for this CDT procedure are in the results section. CBC W/PLT COUNT & AUTO Routine 12/07/2018 2:27 AM Results for this DIFFERENTIAL CDT procedure are in the results section. MAGNESIUM Routine 12/07/2018 2:27 AM Results for this CDT procedure are in the results section. BASIC METABOLIC PANEL Routine 12/07/2018 2:27 AM Results for this (7) CDT procedure are in the results section. CBC W/PLT COUNT & AUTO Routine 12/07/2018 2:27 AM Results for this DIFFERENTIAL CDT procedure are in the results section. POCT-GLUCOSE METER Routine 12/07/2018 12:58 AM Results for this CDT procedure are in the results section. POCT-GLUCOSE METER Routine 12/06/2018 9:27 PM Results for this CDT procedure are in the results section. ECHOCARDIOGRAM REPORT - 12/06/2018 9:20 PM SCAN CDT XR CHEST PA OR AP 1 VIEW STAT 12/06/2018 6:37 PM Results for this IN DEPT. CDT procedure are in the results section. POCT-GLUCOSE METER Routine 12/06/2018 5:53 PM Results for this CDT procedure are in the results section. (CELLAVISION MANUAL STAT 12/06/2018 4:56 PM Results for this DIFF) CDT procedure are in the results section. CBC W/PLT COUNT & AUTO STAT 12/06/2018 4:56 PM Results for this DIFFERENTIAL CDT procedure are in the results section. PROCALCITONIN STAT 12/06/2018 4:56 PM Results for this CDT procedure are in the results section. LACTIC ACID, VENOUS STAT 12/06/2018 4:56 PM Results for this CDT procedure are in the results section. TROPONIN I STAT 12/06/2018 4:56 PM Results for this CDT procedure are in the results section. PROTHROMBIN TIME/INR STAT 12/06/2018 4:56 PM Results for this CDT procedure are in the results section. COMPREHENSIVE METABOLIC STAT 12/06/2018 4:56 PM Results for this PANEL CDT procedure are in the results section. CBC W/PLT COUNT & AUTO STAT 12/06/2018 4:56 PM Results for this DIFFERENTIAL CDT procedure are in the results section. CT ABDOMEN/PELVIS STAT 12/06/2018 3:12 PM Results for this WITHOUT IV CONTRAST CDT procedure are in the results section. POCT-GLUCOSE METER Routine 12/06/2018 12:39 PM Results for this CDT procedure are in the results section. HEMOGLOBIN AND Routine 12/05/2018 10:37 PM Results for this HEMATOCRIT CDT procedure are in the results section. POCT-GLUCOSE METER Routine 12/05/2018 10:36 PM Results for this CDT procedure are in the results section. LACTIC ACID, ARTERIAL Routine 12/05/2018 9:54 PM Results for this CDT procedure are in the results section. BLOOD CULTURE Routine 12/05/2018 9:53 PM Results for this CDT procedure are in the results section. BLOOD GAS, ARTERIAL Routine 12/05/2018 9:51 PM Results for this CDT procedure are in the results section. BLOOD CULTURE Routine 12/05/2018 9:37 PM Results for this CDT procedure are in the results section. POCT-GLUCOSE METER Routine 12/05/2018 9:23 PM Results for this CDT procedure are in the results section. URINALYSIS W/ REFLEX Routine 12/05/2018 9:13 PM Results for this URINE CULTURE CDT procedure are in the results section. POCT-GLUCOSE METER Routine 12/05/2018 8:44 PM Results for this CDT procedure are in the results section. POCT-GLUCOSE METER Routine 12/05/2018 8:23 PM Results for this CDT procedure are in the results section. POCT-GLUCOSE METER Routine 12/05/2018 8:08 PM Results for this CDT procedure are in the results section. LACTIC ACID, ARTERIAL STAT 12/05/2018 6:51 PM Results for this CDT procedure are in the results section. POCT-GLUCOSE METER Routine 12/05/2018 6:35 PM Results for this CDT procedure are in the results section. 2D ECHO W/ DOPPLER STAT 12/05/2018 6:18 PM Results for this (CW/PW/COLOR) CDT procedure are in the results section. POCT-GLUCOSE METER Routine 12/05/2018 5:27 PM Results for this CDT procedure are in the results section. ECG 12-LEAD Routine 12/05/2018 5:24 PM CDT Procedure Note - Interface, External Ris In - 12/05/2018 5:31 PM CDT Ventricular Rate 133 BPM Atrial Rate 133 BPM P-R Interval 162 ms QRS Duration 94 ms Q-T Interval 322 ms QTC Calculation(Bazett) 479 ms R [place] 66 degrees T [place] 56 degrees Sinus tachycardia with Premature atrial [...] 348 ms QTC Calculation(Bazett) 515 ms P [place] -68 degrees R [place] 63 degrees [place] 50 degrees Atrial flutter with variable A-V block ST elevation consider lateral injury or acute infarct ACUTE W[place] / STEMI Abnormal ECG B-TYPE NATRIURETIC FACTOR [...] 444 ms QTC Calculation(Bazett) 489 ms P [place] 270 degrees R [place] 58 degrees T [place] 64 degrees Unusual P axis, possible ectopic [...] 448 ms QTC Calculation(Bazett) 497 ms P [place] -71 degrees R [place] 56 degrees [place] 60 degrees Unusual P axis, possible ectopic [...] 332 ms QTC Calculation(Bazett) 467 ms P [place] -72 degrees [place] 69 degrees [place] 74 degrees Unusual P axis, possible ectopic [...] METER Routine 12/02/2018 12:49 AM CDT after 01/11/2018 Results EKG-SCANNED (12/31/2018 11:00 AM CDT)Only the most recent of2 resultswithin the time period is included. Narrative Performed At RHYTHM STRIP - SCAN (12/31/2018 10:01 AM CDT)Only the most recent of3 resultswithin the time period is included. Narrative Performed At ECHOCARDIOGRAM REPORT - SCAN (12/28/2018 9:01 PM CDT) Narrative Performed At Hemoglobin and hematocrit (12/28/2018 12:23 PM CDT)Only the most recent of22 resultswithin the time period is included. Hemoglobin 9.6 (L) 13.7 - 17.5 GM/DL [facility] Hematocrit 30.0 (L) 40.1 - 51.0 % [facility] Specimen Blood Performing Organization Address City/[facility] Phone Number [address] [address] [phone] [place] POC-Glucose meter (12/28/2018 10:58 AM CDT)Only the most recent of62 resultswithin the time period is included. POC-Glucose Meter 178 (H)Comment: TESTED AT 70 - 110 mg/dL [place] [id number] Specimen Blood Performing Organization Address City/[facility] Phone Number [address] [address] [phone] [place] TRANSFUSION SERVICE REPORT - SCAN (12/27/2018 6:01 PM CDT)Only the most recent of8 resultswithin the time period is included. 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 Clinical History A-FIB,ASTHMA,CHF,COPD,CAD,HTN,DMII Height: 72 inches Weight: 89.81 kg (198 lbs) BSA: 2.12 m^2 BMI: 26.85 kg/m^2 HR: 76 bpm BP: 142/64 mmHg Procedure Informed Consent CELENA procedure notes Moderate sedation by performing MD using 2 mg IV versed and 50 mcg IV fentanyl. The patient was counseled and informed consent was obtained. Topical and intravenous anesthesia was administered. The esophagus was intubated without difficulty. The probe was passed and all standard echocardiographic views were obtained. The patient tolerated the procedure well.. Summary 1. Left atrium is enlarged. No evidence of left atrial or left atrial appendage thrombus. 3D left atrial appendage measurements: max diameter: 1.9cm, min diameter: 1.6cm and a max depth 2.3cm. 2. Overall normal LV and RV systolic function. 3. Severe lipomateous hypertrophy of the inter atrial septum with a focal area of thin septum. The maximal thickness measuring 2.3 cm. 4. No significant valvular abnormalities. Previous Study Compared to prior study dated 12/05/2018, there is no significant change. Signature Findings Rhythm/BPNormal sinus rhythm during the exam. 3D imaging (cpt 61212) rendering with in terpretation was performed. Left Ventricle LV chamber size is normal. There is no LV hy pertrophy. All of the segments appear to contract no rmally. Overall normal LV systolic function. Left AtriumLeft atrium is enlarged but precise severity as sessment is unreliable due to known CELENA sector si ze limitation. No evidence of left atrial or left atrial appendage th rombus. 2D left atrial appendage measurements (Watchman Pr otocol) 0 degrees: orfice diameter 1.8cm, depth 3.0cm 45 degrees: orfice diameter 1.7cm, depth 2.5cm 90 degrees: orfice diameter 1.8cm, depth 2.0cm 13 5 degrees: orfice diameter 1.5cm, depth 2.2cm 3D left atrial appendage measurements: ma x diameter: 1.9cm mi n diameter: 1.6cm ma x depth 2.3cm Right VentricleThe right ventricular chamber size and systolic fu nction are within normal limits. Right Atrium Right atrial size is normal. Atrial SeptumSevere lipomateous hypertrophy of the inter atrial se ptum with a focal area of thin septum. The ma ximal thickness measuring 2.3 cm. Aortic Valve Normal aortic valve structure. No aortic stenosis. No aortic regurgitation. Mitral Valve Normal mitral structure. No mitral stenosis. Tr gutierrez mitral regurgitation. Tricuspid ValveTricuspid structure is normal. No tricuspid re gurgitation. Pulmonic Valve Normal pulmonic valve structure and function. AortaAortic root size (sinus of Valsalva diameter) is no rmal. Visualized aortic arch is normal. PericardiumNo pericardial effusion is visualized. IVC/SVC/PA/PV/PleuralIVC and SVC are grossly normal by available views. Un able to estimate right atrial pressure. 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 Clinical History A-FIB,ASTHMA,CHF,COPD,CAD,HTN,DMII Height: 72 inches Weight: 89.81 kg (198 lbs) BSA: 2.12 m^2 BMI: 26.85 kg/m^2 HR: 76 bpm BP: 142/64 mmHg Procedure Informed Consent CELENA procedure notes Moderate sedation by performing MD using 2 mg IV versed and 50 mcg IV fentanyl. The patient was counseled and informed consent was obtained. Topical and intravenous anesthesia was administered. The esophagus was intubated without difficulty. The probe was passed and all standard echocardiographic views were obtained. The patient tolerated the procedure well.. Summary 1. Left atrium is enlarged. No evidence of left atrial or left atrial appendage thrombus. 3D left atrial appendage measurements: max diameter: 1.9cm, min diameter: 1.6cm and a max depth 2.3cm. 2. Overall normal LV and RV systolic function. 3. Severe lipomateous hypertrophy of the inter atrial septum with a focal area of thin septum. The maximal thickness measuring 2.3 cm. 4. No significant valvular abnormalities. Previous Study Compared to prior study dated 12/05/2018, there is no significant change. Signature Findings Rhythm/BP Normal sinus rhythm during the exam. 3D imaging (cpt 88586) rendering with interpretation was performed. Left Ventricle LV chamber size is normal. There is no LV hypertrophy. All of the segments appear to contract normally. Overall normal LV systolic function. Left Atrium Left atrium is enlarged but precise severity assessment is unreliable due to known CELENA sector size limitation. No evidence of left atrial or left atrial appendage thrombus. 2D left atrial appendage measurements (Watchman Protocol) 0 degrees: orfice diameter 1.8cm, depth 3.0cm 45 degrees: orfice diameter 1.7cm, depth 2.5cm 90 degrees: orfice diameter 1.8cm, depth 2.0cm 135 degrees: orfice diameter 1.5cm, depth 2.2cm 3D left atrial appendage measurements: max diameter: 1.9cm min diameter: 1.6cm max depth 2.3cm Right Ventricle The right ventricular chamber size and systolic function are within normal limits. Right Atrium Right atrial size is normal. Atrial Septum Severe lipomateous hypertrophy of the inter atrial septum with a focal area of thin septum. The maximal thickness measuring 2.3 cm. Aortic Valve Normal aortic valve structure. No aortic stenosis. No aortic regurgitation. Mitral Valve Normal mitral structure. No mitral stenosis. Trace mitral regurgitation. Tricuspid Valve Tricuspid structure is normal. No tricuspid regurgitation. Pulmonic Valve Normal pulmonic valve structure and function. Aorta Aortic root size (sinus of Valsalva diameter) is normal. Visualized aortic arch is normal. Pericardium No pericardial effusion is visualized. IVC/SVC/PA/PV/Pleural IVC and SVC are grossly normal by available views. Unable to estimate right atrial pressure. Performing Organization Address City/State/Zipcode Phone Number [facility] ECHO HEARTLAB [facility] CT heart without & with gating & 3d (12/27/2018 12:10 PM CDT) Specimen Narrative Performed At Addendum Begins [employer] RIS REPORT STATUS:A Addendum: I agree with the previously described non vascular findings. Signed: Maria Del Carmen Castro MD Report Verified Date/Time:12/28/2018 15:54:55 Reading Location: [place] [id number] Angio Body Reading Room Addendum Ends FINAL REPORT CT angiography of the left atrial appendage, 27 Dec 2018 INDICATION: This is a 73years old malewith history of atrial fibrillation presented here for pulmonary vein ostial mapping. This study is performed in an attempt to avoid invasive procedure. TECHNIQUE:Spiral acquisition before and during intravenous contrast administration using a Sion Powerlice cardiac CT scanner with ECG triggering.Multiplanar reconstructions were performed interactively by the interpreting physician using an independent (Squla) workstation. Please refer to the contrast sheet scanned in the EPIC system for the amount and route of contrast given. This exam was performed according to our departmental dose-optimisation programme, which includes automated exposure control, adjustment of the mA and/or kV according to patient size and/or use of iterative reconstruction technique. Dose modulation, iterative reconstruction, and/or weight based adjustment of the mA/kV was utilized to reduce the radiation dose to as low as reasonably achievable. FINDINGS: VASCULAR: No pericardial effusion is present. The central pulmonary artery is normal in calibre. The thoracic aorta is normal in course, calibre, and contour. Scattered calcification is seen in the descending thoracic aorta. There is no evidence for acute aortic pathology. The arch vessel branching pattern is normal, and the origins of the arch branch vessels are all widely patent. In the systolic data set, the left ventricle appears to be normal in size. Coronary artery origins are normal. Diffuse calcific lesion is seen in the LAD, LCx, and the RCA territories. The cardiac chambers demonstrate normal atrioventricular and ventriculoarterial concordance, and systemic and pulmonary venous return. There is substantial lipomatous hypertrophy of the inter-atrial septum identified. At image 320, at the juncture of the SVC/right atrium, the maximum diameter is approximately 18 x 8 mm, with a cross-sectional area of 1 sq cm. No more proximal SVC dilation is identified and no surrounding collaterals are seen suggesting this is not hemodynamically significant. Left atrial prominence is noted. No thrombus is identified in the left atrial appendage. Pulmonary vein morphology is normal with pairs of pulmonary veins on each side of the left atrium. In addition, a small right middle lobe pulmonary vein is also present. Narrowing is identified at the origin of the left lower lobe pulmonary vein. It measures approximately 11 x 2 mm in diameter, with a cross sectional area of 0.3 sq cm. Hemodynamic significance difficult to comment upon. Measurements for the WATCHMAN procedure are as follows (Essie Oliva et al J CV EP 2016): The maximum cross-sectional diameter of the landing zone is approximately 22.1 x 13.1 mm and the cross-sectional area of 229 sq mm. The perimeter is estimated to be approximately 57 mm. The depth is measured to be approximately 24.9 mm. Please see snapshot for details. NON-VASCULAR: Enlargement with heterogeneous hypodensity is identified in the right thyroid lobe, at image 58, measure 2.6 cm. Should be further assessed by dedicated thyroid ultrasound scan. The chest wall and mediastinum appears normal. No significant adenopathy is identified in the mediastinum. In the lung windows, no endobronchial lesion is seen though some debris is identified in the right lateral aspect of the trachea, at image 96. Left basal pleural effusion is identified, and associated atelectatic changes, that could be related to the narrowing of the left lower lobe pulmonary vein. Dependent changes are also identified in the right base. Some subsegmental atelectatic changes are also noted. No suspicious pulmonary nodule is identified, defined as no nodule greater than 6 mm is identified. The limited images of the upper abdomen reveal no significant abnormalities of the visualized organs. Calcific granuloma is identified in the spleen. In the bony windows, no acute bony pathology is seen. Minimal degenerative changes is noted. IMPRESSIONS: 1.The left atrium is mildly enlarged. No thrombus is visualized in the left atrial appendage. Morphology of the left atrial appendage is not chicken wing, more like cactus. See reformatted data set for details. Dimensions that may be helpful for the watchman procedure as described above. 2.Pulmonary vein morphology is normal with pairs of pulmonary veins bilaterally. A small right middle lobe pulmonary vein is seen. Narrowing is identified at the takeoff of the left lower lobe pulmonary vein. 3.Normal thoracic aorta. Scattered calcification is seen in the descending thoracic aorta. No ectasia or aneurysmal dilation is seen. 4.Small left basal pleural effusion is identified. The central pulmonary artery is normal in calibre. 5.Other findings as described above. Enlargement with heterogeneous hypodensity is identified in the right thyroid lobe, at image 58, measure 2.6 cm. Should be further assessed by dedicated thyroid ultrasound scan. 6.An addendum will be dictated regarding the non-vascular findings by the Assembler Installer Structures Radiologist. Signed: Mo Saldana MD Report Verified Date/Time:12/27/2018 12:57:49 Reading Location: [place] [address] Cardiology MRI Procedure Note Interface, External Ris In - 12/28/2018 3:57 PM CDT Addendum Begins REPORT STATUS:A Addendum: I agree with the previously described non vascular findings. Signed: Maria Del Carmen Castro MD Report Verified Date/Time: 12/28/2018 15:54:55 Reading Location: [facility] [id number] Angio Body Reading Room Addendum Ends FINAL REPORT CT angiography of the left atrial appendage, 27 Dec 2018 INDICATION: This is a 73 years old male with history of atrial fibrillation presented here for pulmonary vein ostial mapping. This study is performed in an attempt to avoid invasive procedure. TECHNIQUE: Spiral acquisition before and during intravenous contrast administration using a Ludwig multislice cardiac CT scanner with ECG triggering. Multiplanar reconstructions were performed interactively by the interpreting physician using an independent (Squla) workstation. Please refer to the contrast sheet scanned in the [employer] system for the amount and route of contrast given. This exam was performed according to our departmental dose-optimisation programme, which includes automated exposure control, adjustment of the mA and/or kV according to patient size and/or use of iterative reconstruction technique. Dose modulation, iterative reconstruction, and/or weight based adjustment of the mA/kV was utilized to reduce the radiation dose to as low as reasonably achievable. FINDINGS: VASCULAR: No pericardial effusion is present. The central pulmonary artery is normal in calibre. The thoracic aorta is normal in course, calibre, and contour. Scattered calcification is seen in the descending thoracic aorta. There is no evidence for acute aortic pathology. The arch vessel branching pattern is normal, and the origins of the arch branch vessels are all widely patent. In the systolic data set, the left ventricle appears to be normal in size. Coronary artery origins are normal. Diffuse calcific lesion is seen in the LAD, LCx, and the RCA territories. The cardiac chambers demonstrate normal atrioventricular and ventriculoarterial concordance, and systemic and pulmonary venous return. There is substantial lipomatous hypertrophy of the inter-atrial septum identified. At image 320, at the juncture of the SVC/right atrium, the maximum diameter is approximately 18 x 8 mm, with a cross-sectional area of 1 sq cm. No more proximal SVC dilation is identified and no surrounding collaterals are seen suggesting this is not hemodynamically significant. Left atrial prominence is noted. No thrombus is identified in the left atrial appendage. Pulmonary vein morphology is normal with pairs of pulmonary veins on each side of the left atrium. In addition, a small right middle lobe pulmonary vein is also present. Narrowing is identified at the origin of the left lower lobe pulmonary vein. It measures approximately 11 x 2 mm in diameter, with a cross sectional area of 0.3 sq cm. Hemodynamic significance difficult to comment upon. Measurements for the WATCHMAN procedure are as follows (Essie Oliva et al J CV EP 2016): The maximum cross-sectional diameter of the landing zone is approximately 22.1 x 13.1 mm and the cross-sectional area of 229 sq mm. The perimeter is estimated to be approximately 57 mm. The depth is measured to be approximately 24.9 mm. Please see snapshot for details. NON-VASCULAR: Enlargement with heterogeneous hypodensity is identified in the right thyroid lobe, at image 58, measure 2.6 cm. Should be further assessed by dedicated thyroid ultrasound scan. The chest wall and mediastinum appears normal. No significant adenopathy is identified in the mediastinum. In the lung windows, no endobronchial lesion is seen though some debris is identified in the right lateral aspect of the trachea, at image 96. Left basal pleural effusion is identified, and associated atelectatic changes, that could be related to the narrowing of the left lower lobe pulmonary vein. Dependent changes are also identified in the right base. Some subsegmental atelectatic changes are also noted. No suspicious pulmonary nodule is identified, defined as no nodule greater than 6 mm is identified. The limited images of the upper abdomen reveal no significant abnormalities of the visualized organs. Calcific granuloma is identified in the spleen. In the bony windows, no acute bony pathology is seen. Minimal degenerative changes is noted. IMPRESSIONS: 1. The left atrium is mildly enlarged. No thrombus is visualized in the left atrial appendage. Morphology of the left atrial appendage is not chicken wing, more like cactus. See reformatted data set for details. Dimensions that may be helpful for the watchman procedure as described above. 2. Pulmonary vein morphology is normal with pairs of pulmonary veins bilaterally. A small right middle lobe pulmonary vein is seen. Narrowing is identified at the takeoff of the left lower lobe pulmonary vein. 3. Normal thoracic aorta. Scattered calcification is seen in the descending thoracic aorta. No ectasia or aneurysmal dilation is seen. 4. Small left basal pleural effusion is identified. The central pulmonary artery is normal in calibre. 5. Other findings as described above. Enlargement with heterogeneous hypodensity is identified in the right thyroid lobe, at image 58, measure 2.6 cm. Should be further assessed by dedicated thyroid ultrasound scan. 6. An addendum will be dictated regarding the non-vascular findings by the Assembler Installer Structures Radiologist. Signed: Mo Saldana MD Report Verified Date/Time: 12/27/2018 12:57:49 Reading Location: [place] [address] Cardiology MRI Performing Organization Address City/State/Zipcode Phone Number GE RIS CBC with platelet count + automated diff (12/26/2018 3:54 AM CDT)Only the most recent of13 resultswithin the time period is included. WBC 5.1 3.5 - 10.5 K/L [facility] RBC 2.73 (L) 4.63 - 6.08 M/L [facility] Hemoglobin 8.3 (L) 13.7 - 17.5 GM/DL [facility] Hematocrit 25.1 (L) 40.1 - 51.0 % [facility] MCV 91.9 79.0 - 92.[address] [facility] MCH 30.4 25.7 - 32.[address] [facility] MCHC 33.1 32.3 - 36.5 GM/DL [facility] RDW 15.3 (H) 11.6 - 14.4 % [facility] Platelets 191 150 - 450 K/CU MM [facility] MPV 10.0 9.4 - 12.[address] [facility] nRBC 0 0 - 0 /[address] [facility] % Neutros 67 % [facility] % Lymphs 20 % [facility] % Monos 10 % [facility] % Eos 2 % [facility] % Baso 0 % [facility] # Neutros 3.42 1.78 - 5.38 K/L [facility] # Lymphs 1.00 (L) 1.32 - 3.57 K/L [facility] # Monos 0.51 0.30 - 0.82 K/L [facility] # Eos 0.10 0.04 - 0.54 K/L [facility] # Baso 0.02 0.01 - 0.08 K/L [facility] Immature Granulocytes-Relative 0 0 - 1 % [facility] Specimen Blood Performing Organization Address [facility] Phone Number [address] [address] CENTER Type and screen, automated (12/26/2018 1:33 AM CDT)Only the most recent of4 resultswithin the time period is included. ABO/RH AUTOMATED (BEAKER) O NEGATIVE [facility] Ab Scrn NEGATIVE [facility] Specimen Blood Performing Organization Address City/[facility] Phone Number [address] [address] [phone] Prepare Leuko-Red RBC (12/26/2018 1:04 AM CDT)Only the most recent of7 resultswithin the time period is included. CROSSMATCH COMPATIBLE SAFETRACE TX Unit ABO O Neg SAFETRACE TX UNIT NUMBER [id number] SAFETRACE TX Status READY SAFETRACE TX Blood Bank Product RED BLOOD CELLS SAFETRACE TX PRODUCT CODE [id number] SAFETRACE TX Specimen Other Performing Organization Address City/[facility] Phone Number SAFETRACE TX Comprehensive metabolic panel (12/25/2018 5:28 AM CDT)Only the most recent of4 resultswithin the time period is included. Protein, Total 5.3 (L) 6.0 - 8.3 gm/dL [facility] Albumin 2.7 (L) 3.5 - 5.0 g/dL [facility] Alkaline Phosphatase 65 40 - 150 U/L [facility] Total Bilirubin 0.3 0.2 - 1.2 mg/dL [facility] Sodium 139 136 - 145 meq/L [facility] Potassium 3.9 3.5 - 5.1 meq/L [facility] Chloride 101 98 - 107 meq/L [facility] CO2 34 (H) 22 - 29 meq/L [facility] BUN 52 (H) 7 - 21 mg/dL [facility] Creatinine 0.99 0.57 - 1.25 mg/dL [facility] Glucose 138 (H) 70 - 105 mg/dL [facility] Calcium 8.3 (L) 8.4 - 10.2 mg/dL [facility] AST 31 5 - 34 U/L [facility] ALT 61 (H) 6 - 55 U/L [facility] EGFR Comment: INSUFFICIENT mL/min/1.73 sq m [facility] CLINICAL DATA TO [facility] CALCULATE ESTIMATED GFR. Specimen Blood Performing Organization Address City/State/Zipcode Phone Number [facility] [address] [place] [address] [phone] CENTER Transfuse Leuko-Red RBC (12/24/2018 10:14 PM CDT)Only the most recent of11 resultswithin the time period is included.Basic Metabolic Panel (12/23/2018 4: 10 PM CDT)Only the most recent of11 resultswithin the time period is included. Sodium 138 136 - 145 meq/L [facility] Potassium 4.8 3.5 - 5.1 meq/L [facility] Chloride 98 98 - 107 meq/L [facility] CO2 31 (H) 22 - 29 meq/L [facility] BUN 79 (H) 7 - 21 mg/dL [facility] Creatinine 1.65 (H) 0.57 - 1.25 mg/dL [facility] Glucose 295 (H) 70 - 105 mg/dL [facility] Calcium 8.3 (L) 8.4 - 10.2 mg/dL [facility] EGFR Comment: INSUFFICIENT CLINICAL mL/min/1.73 sq m [facility] DATA TO CALCULATE ESTIMATED [facility] GFR. Specimen Blood Performing Organization Address City/State/Zipcode Phone Number [facility] [address] [place] [address] CENTER REPORT OF PROCEDURE - ENDOSCOPY URL (12/23/2018 3:37 PM CDT) Narrative Performed At Tissue Exam (12/23/2018 3:26 PM CDT) Case Report Surgical Pathology Report Case: [id number] [facility] Authorizing Provider:Edel Washington MDCollected: 12/23/2018 1526 [facility] Ordering Location: [place] [address] ICUReceived: 12/25/2018 0859 Pathologist: Arthur Brown MD Specimen:Biopsy, Gastric, RANDOM BODY AND ANTRUM BX R/O H PYLORI ADDENDUM Special stains for fungal organisms (GMS, PAS) and acid fast bacilli (AFB) performed on block A1 are negative. [facility] Immunostains for helicobacter are negative. [facility] Immunistains for CMV, HSV1, and HSV2 are negative. DIAGNOSIS PART A RANDOM GASTRIC BIOPSY: [facility] ACTIVE CHRONIC GASTRITIS WITH REGENERATIVE FEATURES. [facility] NEGATIVE FOR INTESTINAL METAPLASIA, DYSPLASIA, OR INVASIVE CARCINOMA. WARTHIN STARRY STAIN FOR HELICOBACTER IS NEGATIVE. STUDIES FOR ADDITIONAL INFECTIOUS ETIOLOGIES ARE PENDING, ADDENDUM REPORT TO FOLLOW. Signing Pathologist Direct Phone Line: [phone] CPT Code(s) 85495, [id number], 55238, [id number] [facility] CLINICAL HISTORY Pre and postop diagnosis: GI [facility] bleeding [facility] SPECIMEN SOURCE Random body and antrum biopsy [facility] rule out H. pylori [facility] GROSS DESCRIPTION Received in formalin labeled [facility] with the patient's name, [facility] accession number and "biopsy, gastric" are multiple russell soft tissue fragments ranging 0.2-0.5 cm which are submitted in toto in A1. CG/pl MICROSCOPIC DESCRIPTION PERFORMED. [facility] SPECIAL STUDIES The interpretation of this case included the use of immunohistochemistry or special stains. [facility] BLOCK A1- WARTHIN STARRY, AFB, GMS, PAS, HSV1, HSV2, CMV, HELICOBACTER IMMUNOSTAIN [facility] Control Slides Examined: In-house known positive controls were evaluated along with the test tissue. These control slides run alongside of the patients sample show appropriate staining. Internal posit carl and negative controls when available are evaluated Immunohistochemistry technical testing was performed at [facility], Pathology Laboratory where it was developed and its performance characteristics were determined. It has not be en cleared or approved by the U.S. Food and Drug Administration. The FDA has determined that such clearance or approval is not necessary. The test is used for clinical purposes. It should not be regarde d as investigational or for research. This laboratory is certified under the Clinical Laboratory Improvement Amendments of 1988 (CLIA-88) as qualified to perform high complexity clinical laboratory testing. Specimen Tissue Performing Organization Address City/State/Zipcode Phone Number [facility] [address] [place], [place] [phone] CENTER Troponin I (12/23/2018 12:22 PM CDT)Only the most recent of5 resultswithin the time period is included. Troponin I <0.01 0.00 - 0.03 ng/mL [facility] Specimen Blood Narrative Performed At Troponin I (TnI) levels must be interpreted [facility] in the context of the presenting symptoms [...] disease, and persistent tachyarrhythmia. Performing Organization Address [facility] Phone Number [facility] [address] [place] [address] CENTER ECG 12 lead (12/23/2018 6:25 AM CDT)Only the most recent of6 resultswithin the time period is included. Specimen Narrative Performed At Ventricular Rate 80 BPM [employer] MUSE Atrial Rate 80 BPM P-R Interval 170 ms QRS Duration 90 ms Q-T Interval 428 ms QTC Calculation(Bazett) 493 ms P [place] 258 degrees R [place] 70 degrees T [place] 72 degrees Unusual P axis, possible ectopic atrial rhythm with undetermined rhythm irregularity Nonspecific ST abnormality Abnormal ECG When compared with ECG of 23-DEC-2018 06:24, No significant change was found Confirmed by Latosha JUAN MICHAEL ([id number]) on 12/25/2018 9:32:31 AM Procedure Note Interface, External Ris In - 12/25/2018 9:32 AM CDT Ventricular Rate 80 BPM Atrial Rate 80 BPM P-R Interval 170 ms QRS Duration 90 ms Q-T Interval 428 ms QTC Calculation(Bazett) 493 ms P [place] 258 degrees R [place] 70 degrees T [place] 72 degrees Unusual P axis, possible ectopic atrial rhythm with undetermined rhythm irregularity Nonspecific ST abnormality Abnormal ECG When compared with ECG of 23-DEC-2018 06:24, No significant change was found Confirmed by Latosha JUAN MICHAEL ([id number]) on 12/25/2018 9:32:31 AM Performing Organization Address City/[facility] Phone Number [employer] Blood Culture Panel(BioFire) (12/23/2018 6:24 AM CDT) LISTERIA MONOCYTOGENES Not detected Not detected [facility] STAPHYLOCOCCUS Detected (A) Not detected [facility] Comment: [facility] Coagulase negative Staph species (CoNS)- methicillin resistant CENTER First-line therapy: Vancomycin MecA DETECTED Possible contamination. The likelihood of pathogenicity is increased if the organism is observed in multiple blood cultures obtained from separate venipunctures. Reference Range: Not Detected STAPHYLOCOCCUS AUREUS Not detected Not detected [facility] Streptococcus Not detected Not detected [facility] STREPTOCOCCUS AGALACTIAE Not detected Not detected [facility] (GROUP B) [facility] STREPTOCOCCUS PNEUMONIAE Not detected Not detected [facility] Streptococcus pyogenes (Group Not detected Not detected [facility] A) [facility] ACINETOBACTER BAUMANNII Not detected Not detected [facility] HAEMOPHILUS INFLUENZAE Not detected Not detected [facility] NEISSERIA MENINGITIDIS Not detected Not detected [facility] ENTEROBACTERIACEAE Not detected Not detected [facility] ENTEROBACTER CLOACOE COMPLEX Not detected Not detected [facility] KLEBSIELLA OXYTOCA Not detected Not detected [facility] KLEBSIELLA PNEUMONIAE Not detected Not detected [facility] PROTEUS Not detected Not detected [facility] SERRATIA MARCESCENS Not detected Not detected [facility] SHARAD ALBICANS Not detected Not detected [facility] SHARAD GLABRATA Not detected Not detected [facility] SHARAD KRUSEI Not detected Not detected [facility] SHARAD PARAPSILOSIS Not detected Not detected [facility] SHARAD TROPICALIS Not detected Not detected [facility] ESCHERICHIA COLI Not detected Not detected [facility] METHICILLIN-RESISTANCE GENE Detected (A) Not detected [facility] VANCOMYCIN-RESISTANCE GENE Not detected [facility] CARBAPENEM-RESISTANCE GENE Not detected [facility] ENTEROCOCCUS Not detected Not detected [facility] PSEUDOMONAS AERUGINOSA Not detected Not detected [facility] Specimen Blood Narrative Performed At Other bacteria and resistance markers not [facility] targeted by this PCR panel cannot be excluded; therefore clinical correlation and follow up of serology, culture results, and other molecular studies is required. The results are not intended to be used as the sole means for clinical diagnosis or patient management decisions. This sample was tested at the [facility] using the [employer] Blood Culture ID Panel. It is FDA cleared and has been verified and approved by the [facility] for clinical use. This laboratory is CLIA-certified and [employer] [place] (CAP)-accredited to perform high complexity testing. Performing Organization Address City/[facility] Phone Number [address] [phone] [place] Blood Culture - Routine (Right Venipuncture) (12/23/2018 6:24 AM CDT)Only the most recent of6 resultswithin the time period is included. Result STAPHYLOCOCCUS, COAGULASE [facility] NEGATIVE (A) [facility] Gram Stain Result From aerobic bottle only: [facility] gram positive cocci in MEDICAL CENTER clusters Specimen Blood Performing Organization Address [facility] Phone Number [address] [phone] [place] Blood gas, arterial (12/23/2018 6:17 AM CDT)Only the most recent of3 resultswithin the time period is included. pH, Arterial 7.39 7.35 - 7.45 [facility] pCO2, Arterial 50 (H) 35 - [address] [facility] pO2, Arterial 171 (H) 80 - [address] [facility] O2 Sat, Arterial 99.1 (H) 96.0 - 97.0 % [facility] HCO3, Arterial 30 (H) 21 - 29 mmol/L [facility] Base Excess, Arterial 4.3 (H) -2.0 - 3.0 mmol/L [facility] Patient Temperature 37.[address] [facility] FIO2 32.0 % [facility] Specimen Blood, Arterial Performing Organization Address City/[facility]/Zipcode Phone Number [address] [address] CENTER Phosphorus (12/23/2018 6:15 AM CDT)Only the most recent of2 resultswithin the time period is included. Phosphorus 4.8 (H) 2.3 - 4.7 mg/dL [facility] Specimen Blood Performing Organization Address City/[facility]/Zipcode Phone Number [address] [address] CENTER Magnesium (12/23/2018 6:15 AM CDT)Only the most recent of10 resultswithin the time period is included. Magnesium 2.1 1.6 - 2.6 mg/dL [facility] Specimen Blood Performing Organization Address [facility] Phone Number [address] [address] [phone] CENTER XR abdomen / KUB 1 view (12/23/2018 5:54 AM CDT) Specimen Narrative Performed At FINAL REPORT GE RIS RAD, ABDOMEN/KUB, 1 VIEW AP CLINICAL INDICATION:abd pain COMPARISON: Correlation abdomen pelvis CT December 16, 2018 TECHNIQUE: Two frontal radiographs of the abdomen. IMPRESSION: Scattered gaseous distention without dilation or pneumatosis. Surgical changes in the right hemiabdomen are noted. There is a moderate to large distal colonic stool burden. Degenerative changes are evident within the axial skeleton. Signed: JR Mcelroy Robert MD Report Verified Date/Time:12/23/2018 07:11:30 Reading Location: [address] Neuro Reading Room Procedure Note Interface, External Ris In - 12/23/2018 7:13 AM CDT FINAL REPORT RAD, ABDOMEN/KUB, 1 VIEW AP CLINICAL INDICATION: abd pain COMPARISON: Correlation abdomen pelvis CT December 16, 2018 TECHNIQUE: Two frontal radiographs of the abdomen. IMPRESSION: Scattered gaseous distention without dilation or pneumatosis. Surgical changes in the right hemiabdomen are noted. There is a moderate to large distal colonic stool burden. Degenerative changes are evident within the axial skeleton. Signed: JR Mcelroy Robert MD Report Verified Date/Time: 12/23/2018 07:11:30 Reading Location: [facility] C013V Neuro Reading Room Performing Organization Address City/[facility]/Zipcode Phone Number [facility] XR chest 1 view portable / bedside (12/23/2018 5:52 AM CDT)Only the most recent of3 resultswithin the time period is included. Specimen Narrative Performed At FINAL REPORT [facility] INDICATION: hypotension COMPARISON: December 06 TECHNIQUE: Chest radiograph, single view, portable technique. FINDINGS / IMPRESSION: Lungs are clear. Heart shadow normal in size for portable technique. No pneumothorax. Osseous structures unremarkable. Signed: Dereje Scruggs MD Report Verified Date/Time:12/23/2018 07:08:21 Reading Location: [facility] C013Y CT Body Reading Room Procedure Note Interface, External Ris In - 12/23/2018 7:10 AM CDT FINAL REPORT INDICATION: hypotension COMPARISON: December 06 TECHNIQUE: Chest radiograph, single view, portable technique. FINDINGS / IMPRESSION: Lungs are clear. Heart shadow normal in size for portable technique. No pneumothorax. Osseous structures unremarkable. Signed: Dereje Scruggs MD Report Verified Date/Time: 12/23/2018 07:08:21 Reading Location: [facility] C013Y CT Body Reading Room Performing Organization Address City/[facility] Phone Number [facility] Prothrombin time/INR (12/23/2018 5:43 AM CDT)Only the most recent of3 resultswithin the time period is included. Protime 15.6 (H) 11.7 - 14.[address] [facility] INR 1.3 <=5.9 [facility] Specimen Blood Narrative Performed At RECOMMENDED COUMADIN/WARFARIN INR THERAPY [facility] RANGES STANDARD DOSE: 2.0 - 3.0 Includes: PROPHYLAXIS for venous thrombosis, systemic embolization; TREATMENT for venous thrombosis and/or pulmonary embolus. HIGH RISK: Target INR is 2.5-3.5 for patients with mechanical heart valves. Performing Organization Address City/State/Zipcode Phone Number [facility] [address] [place] [address] [place] Fibrinogen (12/23/2018 5:43 AM CDT) Fibrinogen 383 225 - 434 mg/dl [facility] Specimen Blood Performing Organization Address City/[facility]/Zipcode Phone Number [address] [address] [place] Lactic acid, venous (12/23/2018 5:37 AM CDT)Only the most recent of5 resultswithin the time period is included. Lactate, Venous 2.6 (H) 0.5 - 2.2 mmol/L [facility] Specimen Blood Performing Organization Address City/[facility] Phone Number [facility] [address] [place] [address] [place] PERIPHERAL VASCULAR REPORT - SCAN (12/10/2018 9:12 PM CDT) Narrative Performed At Venous doppler arm, right (12/10/2018 12:24 PM CDT) Ejection Fraction [facility] Specimen Impressions Performed At Right Impression [facility] 1. There is no deep venous [...] At PV LAB - Upper Extremities Veins [facility] Demographics Patient NameSCOTT, JETHRODate of Study 12/10/2018 Age 73 Visit [id number] GenderMale Date of 1945 [facility] Number [id number] Physician Martha Sand Mixer Operator Kirk Verde MD Procedure Type of Study: Veins: Upper Extremities [...] of Study 12/10/2018 Age 73 Visit Number [id number] Gender Male Accession Number [id number] Date of 1945 Referring Pauly Patten Room Number [id number] Physician Martha Sand Mixer Operator Mickey Fischer Interpreting [place] T Physician Procedure Type of Study: Veins: Upper [...] are measured in cm Performing Organization Address City/State/Zipcode Phone Number [facility] CPACS Manual Differential (12/10/2018 7:09 AM CDT)Only the most recent of5 resultswithin the time period is included. % Neutros 85 % [facility] % Lymphs 6 % [facility] % Monos 1 % [facility] % Eos 1 % [facility] % Baso 1 % [facility] % Myelo 5 (H) 0 - 0 % [facility] % Atypical Lymphs 1 (H) 0 - 0 % [facility] # Neutros 6.72 (H) 1.78 - 5.38 K/ul [facility] # Lymphs 0.47 (L) 1.32 - 3.57 K/ul [facility] # Monos 0.08 (L) 0.30 - 0.82 K/uL [facility] # Eos 0.08 0.04 - 0.54 K/uL [facility] # Baso 0.08 0.01 - 0.08 K/uL [facility] # Myelo 0.40 (H) 0.00 - 0.00 K/uL [facility] # Atypical Lymphs 0.08 (H) 0.00 - 0.00 K/uL [facility] Total Counted 100 [facility] Smudge Cells Present [facility] Giant Platelet Present [facility] Polychromasia 1+ few [facility] Hypochromia 1+ few [facility] Platelet Conc Adequate [facility] Specimen Blood Narrative Performed At Received comment: [facility] User comments: Slide comments: Performing Organization Address City/State/Zipcode Phone Number [facility] [address] [place] [phone] CENTER Vancomycin level, trough (12/09/2018 3:19 AM CDT) Vancomycin Tr 17.8 10.0 - 20.0 ug/mL [facility] Specimen Blood Performing Organization Address City/State/Zipcode Phone Number [facility] [address] [place] [address] CENTER Procalcitonin (12/08/2018 8:40 AM CDT)Only the most recent of3 resultswithin the time period is included. Procalcitonin 7.07 (H) <0.05 ng/mL [facility] Specimen Blood Narrative Performed At SEPSIS RISK (ng/mL) [facility] Low:0.05-0.50 Intermediate: 0.51-2.00 High: >=2.01 Performing Organization Address City/State/Zipcode Phone Number [facility] [address] [place] [address] CENTER PICC LINE INSERTION (12/07/2018 12:09 PM CDT) Narrative Performed At Berlin Bryant NP 12/07/20183:36 PM PICC LINE INSERTION Date/Time: 12/06/2018 5:30 AM Performed by: Berlin Bryant NP Authorized by: Berlin Bryant NP Consent: Verbal consent obtained. Written consent obtained. Risks and benefits: risks, benefits and alternatives were discussed Consent given by: patient, spouse and power of consumer attorney Patient understanding: patient states understanding of [...] to verify the correct patient, procedure, equipment, product support consultant and site/side marked as required (with Clayton [...] CDT) Specimen Narrative Performed At Addendum Begins x.ai REPORT STATUS:A Addendum: An additional image was acquired. Tip of the right upper extremity central line projects over the superior vena cava. Signed: Mickey Espinal MD Report Verified Date/Time:12/06/2018 20:12:07 Reading Location: [address] Reading Room Addendum Ends Addendum Begins REPORT STATUS:A Addendum: Examination was repeated. Tip of the right upper extremity central line remains indistinct. Signed: Mickey Espinal MD Report Verified Date/Time:12/06/2018 20:05:52 Reading Location: [address] Reading Room Addendum Ends FINAL REPORT [...] MD Report Verified Date/Time:12/06/2018 19:07:07 Reading Location: [address] Reading Room Procedure Note Interface, External Ris In - 12/06/2018 8:14 PM CDT Addendum Begins REPORT STATUS:A Addendum: An additional image was acquired. Tip of the right upper extremity central line projects over the superior vena cava. Signed: Mickey Espinal MD Report Verified Date/Time: 12/06/2018 20:12:07 Reading Location: [address] Reading Room Addendum Ends Addendum Begins REPORT STATUS:A Addendum: Examination was repeated. Tip of the right upper extremity central line remains indistinct. Signed: Mickey Espinal MD Report Verified Date/Time: 12/06/2018 20:05:52 Reading Location: [address] Reading Room Addendum Ends FINAL REPORT [...] Report Verified Date/Time: 12/06/2018 19:07:07 Reading Location: [address] Reading Room Performing Organization Address City/State/Zipcode Phone Number [facility] CT abdomen/pelvis without iv contrast (12/06/2018 3:12 PM CDT)Only the most recent of2 resultswithin the time period is included. Specimen Narrative Performed At FINAL REPORT [facility] CT abdomen and pelvis without contrast History: [...] MD Report Verified Date/Time:12/06/2018 15:53:40 Reading Location: [facility] Mammo Reading Room Procedure Note Interface, External Ris [...] Report Verified Date/Time: 12/06/2018 15:53:40 Reading Location: [facility] Reading Room Performing Organization Address City/State/Zipcode Phone Number [facility] Lactic Acid, Arterial (12/05/2018 9:54 PM CDT)Only the most recent of2 resultswithin the time period is included. Lactate, Art 2.1 0.5 - 2.2 mmol/L [facility] Specimen Blood, Arterial Performing Organization Address City/State/[place] [address] CENTER Urinalysis w/Microscopic + Reflex to Culture (12/05/2018 9:13 PM CDT)Only the most recent of2 resultswithin the time period is included. Color, UA Yellow [facility] Clarity, UA Cloudy [facility] Specific [place], UA 1.016 1.001 - 1.035 [facility] pH, UA 5.5 5.0 - 8.0 [facility] Protein, UA 100 mg/dL (A) Negative [facility] Glucose, UA Negative Negative [facility] Ketones, UA Trace (A) Negative [facility] Bilirubin, UA Negative Negative [facility] Blood, UA Trace (A) Negative [facility] Nitrite, UA Negative Negative [facility] Leukocytes, UA Small (A) Negative [facility] Urobilinogen, UA 0.2 0.2 - 1.0 mg/dL [facility] RBC, UA 0 /HPF [facility] WBC, UA 4 /HPF [facility] Mucus Rare [facility] Specimen Source [facility] Specimen Urine Performing Organization Address City/State/Zipcode Phone Number [facility] [address] [place] [address] CENTER 2D Echo W/Doppler(CW/PW/Color) (12/05/2018 6:18 PM CDT) Ejection Fraction [facility] ECHO [facility] Specimen Narrative Performed At Transthoracic Echocardiography Report (TTE) [facility] Demographics Patient Name JETHRO DUMONT Date of Study 12/05/2018 [id number] GenderMale Visit Number [id number] Unknown [id number] Room Number 6210 Number Date of Birth1945Referring Physician Bob QUINN Age73 year(s)Sand Mixer Operator Elana Le KAMILA InterpretingJose justice Bal, Physician Fellow SONY Sena Procedure Type [...] of Study 12/05/2018 Gender Male Visit Number [id number] Race Unknown Room Number 6210 Number Date of 1945 Referring Physician Bob QUINN Age 73 year(s) Sand Mixer Operator Elana Le RDCS Interpreting Nemesio Bal, Physician Fellow SONY Sena Procedure Type [...] City/State/Zipcode Phone Number [facility]ART[facility] MKCKESSON [facility] B-type Natriuretic Factor (BNP) (12/05/2018 5:06 PM CDT)Only the most recent of2 resultswithin the time period is included. BNP 278 (H) 0 - 100 pg/mL [facility] Specimen Blood Performing Organization Address City/[facility]/Zipcode Phone Number [facility] [address] [place] [address] [phone] [place] Creatine Kinase (CK) (12/05/2018 4:53 PM CDT) Total CK 35 29 - 200 U/L [facility] Specimen Blood Performing Organization Address City/[facility] Phone Number [address] [address] CENTER Ferritin (12/05/2018 5:09 AM CDT) Ferritin 62 5 - 275 ng/mL [facility] Specimen Blood Performing Organization Address [facility] Phone Number [address] [address] [place] REPORT OF PROCEDURE - ENDOSCOPY URL (12/03/2018 8:43 AM CDT) Narrative Performed At Sputum Culture + Gram Stain (12/03/2018 7:01 AM CDT)Only the most recent of2 resultswithin the time period is included. Result Oropharyngeal contamination, [facility] specimen rejected. [facility] requested. Gram Stain Result 2+ gram positive cocci in pairs [facility] Gram Stain Result 2+ gram negative rods [facility] Gram Stain Result 2+ White blood cells seen [facility] Gram Stain Result >[address] [facility] Specimen Sputum - Expectorated Performing Organization Address [facility]/Zipcode Phone Number [address] [address] [place] Vitamin B12 and Folate (12/03/2018 3:56 AM CDT) Vitamin B12 269 213 - 816 pg/mL [facility] Folate 10.9 >=7.0 ng/mL [facility] Specimen Blood Performing Organization Address City/State/Zipcode Phone Number [facility] [address] [place] [address] [place] Iron, TIBC, % sat. (without ferritin) (12/03/2018 3:56 AM CDT) Iron 9.0 (L) 40.0 - 160.0 ug/dL [facility] TIBC 269 250 - 450 ug/dL [facility] Iron % Saturation 3 (L) 20 - 55 % [facility] Specimen Blood Performing Organization Address City/[facility]/Zipcode Phone Number [facility] [address] [place] [address] [place] CBC (Hemogram only) (12/03/2018 3:56 AM CDT)Only the most recent of4 resultswithin the time period is included. WBC 6.4 3.5 - 10.5 K/L [facility] RBC 2.56 (L) 4.63 - 6.08 M/L [facility] Hemoglobin 7.7 (L) 13.7 - 17.5 GM/DL [facility] Hematocrit 23.8 (L) 40.1 - 51.0 % [facility] MCV 93.0 (H) 79.0 - 92.[address] [facility] MCH 30.1 25.7 - 32.[address] [facility] MCHC 32.4 32.3 - 36.5 GM/DL [facility] RDW 16.4 (H) 11.6 - 14.4 % [facility] Platelets 182 150 - 450 K/CU MM [facility] MPV 10.4 9.4 - 12.[address] [facility] nRBC 0 0 - 0 /[address] [facility] Specimen Blood Performing Organization Address City/State/Zipcode Phone Number [facility] [address] [place] [address] [phone] CENTER Vancomycin level, random (12/03/2018 3:56 AM CDT) Vancomycin Rm 16.0 ug/mL [facility] Specimen Blood Narrative Performed At Reference Range: No Normals [facility] Performing Organization Address [facility]/Zipcode Phone Number [facility] [address] [place] [address] [place] ECHOCARDIOGRAM REPORT - SCAN (12/02/2018 9:21 PM CDT) Narrative Performed At US pelvis limited (12/02/2018 6:33 PM CDT) Specimen Narrative Performed At FINAL REPORT [email or web address] Ultrasound of the Abdomen and pelvis, 12/02/2018. [...] MD Report Verified Date/Time:12/02/2018 18:44:56 Reading Location: [facility] B1 C013T Transitional Reading Room Procedure Note Interface, External Ris [...] Report Verified Date/Time: 12/02/2018 18:44:56 Reading Location: [facility] B1 C013T Transitional Reading Room Performing Organization Address City/State/Zipcode Phone Number [email or web address] US abdomen complete (12/02/2018 6:33 PM CDT) Specimen Narrative Performed At FINAL REPORT [email or web address] Ultrasound of the Abdomen and pelvis, 12/02/2018. [...] MD Report Verified Date/Time:12/02/2018 18:44:56 Reading Location: [address] Reading Room Procedure Note Interface, External [...] Report Verified Date/Time: 12/02/2018 18:44:56 Reading Location: [address] Reading Room Performing Organization Address City/State/Zipcode Phone Number [email or web address] 2D Echo W/Doppler(CW/PW/Color) (12/02/2018 1:11 PM CDT) Ejection Fraction [facility]CHO [facility] Specimen Narrative Performed At Transthoracic Echocardiography Report (TTE) [facility] ECHO [facility]ART[facility] Demographics Patient Name JETHRO DUMONT Date of Study12/02/2018 [id number] Gender Male Visit Number [id number] Unknown [id number] Room [id number] Number Date of Birth1945Referring Rishabh Campbell Age73 year(s)Sand Mixer Operator Elana Le RDCS AnalystIzocliff Mendoza Interpreting Jordon Harrison MD Procedure [...] of Study 12/02/2018 Gender Male Visit Number [id number] Race Unknown Room Number 7108 Number Date of 1945 Referring Physician Lillian Campbell Age 73 year(s) Sand Mixer Operator Elana Le, [facility] Systems Security Consultant Blaire Mendoza Interpreting Jordon Harrison Physician MD [...] TR Gradient: 26.11 mmHg Performing Organization Address [facility] Phone Number [facility]ON [facility] Sodium, random urine (12/02/2018 11:57 AM CDT) Sodium Urine <20 meq/L [facility] Specimen Urine Narrative Performed At Reference Range: No Normals [facility] Performing Organization Address [facility] Phone Number [address] [address] [phone] [place] Osmolality, urine (12/02/2018 11:57 AM CDT) Osmolality, Ur 440 40-1,400 mOsm/kg [facility] Specimen Urine Performing Organization Address [facility] Phone Number [facility] [address] [place] [address] [phone] Creatinine, random urine (12/02/2018 11:57 AM CDT) Creatinine, Ur 65.1 mg/dL [facility] Specimen Urine Narrative Performed At Reference Range: No Normals [facility] Performing Organization Address [facility] Phone Number [address] [address] [place] Legionella antigen, urine (12/02/2018 11:56 AM CDT) Legionella Urine Antigen Negative - see [facility] commentComment: Negative [facility] for L. pneumophila serogroup 1 antigen, suggesting no recent or current infection with this serogroup. Legionellosis cannot be ruled out since other serogroups and species may cause disease. Specimen Urine Performing Organization Address City/State/Zipcode Phone Number [facility] [address] [place] [address] [phone] CENTER Respiratory Panel [facility] (12/02/2018 11:55 AM CDT) Human Metapneumovirus Not detected Not detected, [facility] Rhinovirus Not detected Not detected, [facility] Influenza A Not detected Not detected, [facility] INFLUENZA A (NO SUBTYPE) Not detected, [facility] Influenza A subtype H1 Not detected, [facility] Influenza A Subtype H3 Not detected, [facility] Influenza A Subtype H1-2009 Not detected, [facility] Influenza B Not detected Not detected, [facility] Respiratory Syncytial Virus Not detected Not detected, [facility] Parainfluenza Virus 1 Not detected Not detected, [facility] Parainfluenza Virus 2 Not detected Not detected, [facility] Parainfluenza virus 3 Not detected Not detected, [facility] Parainfluenza Virus 4 Not detected Not detected, [facility] Adenovirus Not detected Not detected, [facility] Coronavirus 229E Not detected Not detected, [facility] Coronavirus HKU1 Not detected Not detected, [facility] Coronavirus NL63 Not detected Not detected, [facility] Coronavirus OC43 Not detected Not detected, [facility] Bordetella Pertussis Not detected Not detected, [facility] Chlamydophila Pneumoniae Not detected Not detected, [facility] Mycoplasma Pneumoniae Not detected Not detected, [facility] Equivocal [facility] Specimen Nasopharyngeal - Expectorated Narrative Performed At Other viruses and bacteria not targeted by [facility] this PCR panel cannot be excluded; therefore clinical correlation and follow up of serology, culture results, and other molecular studies is required. The results are not intended to be used as the sole means for clinical diagnosis or patient management decisions. This sample was tested at the [facility] using the YaBeamArray Respiratory Panel. It is FDA cleared and has been verified and approved by the [facility] for clinical use on nasal swab specimens. Performing Organization Address City/[facility] Phone Number [address] [address] [phone] [place] Strep pneumoniae antigen (12/02/2018 11:55 AM CDT) Strep pneumoniae Presumptive negative Presumptive negative [facility] Antigen for pneumococcal for pneumococcal [facility] pneumonia - see comment pneumonia - see CENTER comment, Presumptive negative for pneumococcal meningitis - see comment Specimen Urine Narrative Performed At Presumptive negative for pneumococcal [facility] pneumonia, suggesting no current or recent pneumococcal infection. Infection due to S. pneumoniae cannot be ruled out since the antigen present in the sample may be below the detection limit of the test. Performing Organization Address [facility] Phone Number [address] [phone] [place] Rapid Influenza A&B Screen (12/02/2018 11:55 AM CDT) Rapid Influenza A NEGATIVE LABORATORY Negative, Inconclusive [facility] Antigen FINDING [facility] Rapid influenza B NEGATIVE LABORATORY Negative, Inconclusive [facility] Antigen FINDING [facility] Specimen Nasal - Expectorated Performing Organization Address [facility] Phone Number [address] [address] [place] POC-Lactic Acid, Venous (12/02/2018 9:27 AM CDT) POC-Lactic Acid, Venous 2.5 (H)Comment: 0.9 - 1.7 mmol/L [facility] TESTED AT [address] [address] Specimen Blood Performing Organization Address City/[facility] Phone Number [address] [address] [place] POCT-HEMATOCRIT (12/02/2018 9:23 AM CDT) POC-Hematocrit 23 (L)Comment: TESTED AT 40 - 50 % [address] [address] Specimen Blood Performing Organization Address [facility] Phone Number [address] [address] [place] POCT-HEMOGLOBIN (12/02/2018 9:23 AM CDT) POC-Hemoglobin 7.8 (L)Comment: TESTED AT 13.0 - 16.8 g/dL [address] [address]DMWSEO AT [address] [address] Specimen Blood Performing Organization Address [facility] Phone Number [address] [address] [place] POCT-GLUCOSE (12/02/2018 9:23 AM CDT) POC-Glucose 413 (HH)Comment: TESTED AT 70 - 110 mg/dL [address] [address] Specimen Blood Performing Organization Address [facility] Phone Number [address] [address] CENTER POC-Sodium (12/02/2018 9:23 AM CDT) POC-Sodium 130 (L)Comment: TESTED AT 135 - 148 meq/L [address] [place] [address] Specimen Blood Performing Organization Address [facility] Phone Number [address] [phone] CENTER POC-Potassium (12/02/2018 9:23 AM CDT) POC-Potassium 5.4Comment: TESTED AT [facility] 3.6 - 5.5 meq/L [address] [address] Specimen Blood Performing Organization Address City/[facility] Phone Number [address] [address] [place] POC-Calcium ionized (12/02/2018 9:23 AM CDT) POC-Calcium Ionized 1.11 (L)Comment: 1.12 - 1.27 mmol/L [facility] TESTED AT [address] [address] Specimen Blood Performing Organization Address [facility] Phone Number [address] [address] [place] POC-Blood gases, arterial (12/02/2018 9:23 AM CDT) Temp. Celsius-POC 37.0 [facility] FIO2-POC Comment: TESTED AT [address] [address] pH, Arterial-POC 7.357 7.350 - 7.450 [facility] PCO2, Arterial-POC 49.5 (H) 35.0 - 45.[address] [facility] PO2, Arterial-POC 28.0 (LL) 80.0 - 90.[address] [facility] SO2, Arterial-POC 49.0 (L) 96.0 - 97.0 % [facility] HCO3, Arterilal-POC 27.7 21.0 - 29.0 meq/L [facility] BE, Arterial-POC 2.0 -2.0 - 3.0 meq/L [facility] Specimen Blood Performing Organization Address City/[facility] Phone Number [address] [phone] CENTER aPTT (12/02/2018 9:08 AM CDT) PTT 28.1 22.5 - 36.[address] [facility] Specimen Blood Performing Organization Address City/[facility]/Zipcode Phone Number [facility] [address] [place] [address] CENTER Urine culture (12/02/2018 8:24 AM CDT) Result No growth [facility] Specimen Urine Performing Organization Address [facility] Phone Number [address] [address] [place] ABORH, manual (12/02/2018 3:48 AM CDT) ABO Grouping O [facility] Rh Factor NEG [facility] Specimen Blood Performing Organization Address [facility] Phone Number [address] [phone] after 01/11/2018 Insurance Payer Benefit Plan / Group Subscriber ID Type Phone Address [facility] xxxxxxxxx Maps Contracted Advance Directives For more information, please contact:[address] [phone] Code Status Date Activated Date Inactivated Comments Full Code 12/27/2018 4:43 PM 12/28/2018 8:29 PM This code status was determined by: Patient Partial Code 12/24/2018 12:48 PM 12/27/2018 4:43 PM This code status was determined by: Patient Drug Protocol After Arrest Occurs? No Mechanical Ventilation with Intubation? Yes Bag/Mask? Yes Internal/External Pacemaker? No Transfer to Critical Care? Yes Chest Compressions? No Defibrillation/Cardioversion? No Partial Code 12/23/2018 5:35 AM 12/24/2018 12:48 PM This code status was determined by: Patient Drug Protocol After Arrest Occurs? No Mechanical Ventilation with Intubation? No Bag/Mask? No Internal/External Pacemaker? No Transfer to Critical Care? Yes Chest Compressions? No Defibrillation/Cardioversion? No Partial Code 12/06/2018 11:02 AM 12/10/2018 8:09 PM This code status was determined by: Patient Drug Protocol After Arrest Occurs? No Mechanical Ventilation with Intubation? No Bag/Mask? No Internal/External Pacemaker? No Transfer to Critical Care? Yes Chest Compressions? No Defibrillation/Cardioversion? No DNR 12/05/2018 11:29 PM 12/06/2018 11:02 AM
--- OUTSIDE RECORDS SUMMARY | 2019-01-12 16:15 | XMS REPORT ---
:1945 [facility] Address [address] [place] [address] Dr. Boyer [address] [place] [id number] Care Team Providers Name Role Phone ANILA LYNCH KEVEN Unavailable Unavailable YOUNG ROBBINS Unavailable Unavailable Problems This patient has no known problems. Allergies, Adverse Reactions, Alerts This patient has no known allergies or adverse reactions. Medications This patient has no known medications. Results Test Description Test Time Test Comments Text Results Atomic Results Result Comments BLOOD CULTURE 2018-12-29 15:07:00 Test Item Value Reference Range Comments CULTURE (BEAKER) (test ogsl=5757) No growth in [address], HEART, [id number] 15:54:00Reason for exam:->watchman work up; afibAddendum BeginsREPORT STATUS:A Addendum: I agree with the previously described non vascular findings. Signed: Maria Del Carmen Castro MDReport Verified Date/Time: 12/28/2018 15:54:55 Reading Location: [place] [address] Angio Body Reading RoomAddendum EndsFINAL REPORT CT angiography of the left atrial appendage, 27 Dec 2018 INDICATION: This is a 73 years old male with history of atrial fibrillation presented here for pulmonary vein ostial mapping. This study is performed in an attempt to avoid invasive procedure. TECHNIQUE: Spiral acquisition before and during intravenous contrast administration using a Ludwig multislice cardiac CT scanner with ECG triggering.Multiplanar reconstructions were performed interactively by the interpreting physician using an independent ([employer]) workstation. Please refer to the contrast sheet scanned in the [employer] system for the amount and route of [...] pathology. The arch vessel branching pattern is normal , and the origins of the arch branch vessels are all widely patent. In the systolic data set, the left ventricle appears to be normal in size. Coronary artery origins are normal. Diffuse calcific lesion is seen in the LAD, LCx, and the RCA territories. The cardiac chambers demonstrate normal atrioventricular and ventriculoarterial concordance, andsystemic and pulmonary venous return. There is substantial [...] for the WATCHMAN procedure are as follows (J Pj et al J CV EP 2016 ): The maximum cross-sectional diameter of the landing zone is approximately 22.1 x 13.1 mm and the cross-sectional area of 229 sq mm. The perimeter is estimated to be approximately 57 mm. The depth is measured to be approximately 24.9 mm. Please seesnapshot for details. NON-VASCULAR: Enlargement with heterogeneous hypodensity [...] to the narrowing of the left lower lobepulmonary vein. Dependent changes are also identified in the right base. Some subsegmental atelectatic changes are also noted. No suspicious pulmonary nodule is identified, defined as no nodule greaterthan 6 mm is identified. The limited images of the upper abdomen reveal no significant abnormalitiesof the visualized organs. Calcific granuloma is identified [...] procedure as described above. 2. Pulmonary vein morphologyis normal with pairs of pulmonary veins bilaterally. [...] addendum will be dictated regarding the non-vascular findingsby the Enterprise Software Engineer Radiologist. Signed: Mo Saldana MDReport Verified Date/Time: 12/27/2018 12:57:49 Reading Location: [place] [address] Cardiology MRI BLOOD [id number] 15:16:00 Test Item Value Reference Range Comments CULTURE (BEAKER) From Aerobic Bottle Only (test ahra=2220) Coagulase negative Staphylococcus GRAM STAIN RESULT From aerobic bottle (BEAKER) (test only: gram positive nnfg=6550) cocci in clusters HEMOGLOBIN AND [id number] 12:30:00 Test Item Value Reference Range Comments HEMOGLOBIN (BEAKER) (test bqby=876) 9.6 GM/DL 13.7-17.5 HEMATOCRIT (BEAKER) (test belo=365) 30.0 % 40.1-51.0 POCT-GLUCOSE [id number] 11:11:00 Test Item Value Reference Range Comments POC-GLUCOSE METER (BEAKER) 178 mg/dL 70-110 TESTED AT [address] (test nkmi=5128) [place] [address] POCT-GLUCOSE [id number] 08:04:00 Test Item Value Reference Range Comments POC-GLUCOSE METER (BEAKER) 77 mg/dL 70-110 TESTED AT [address] (test ntkp=1711) [place] [address] POCT-GLUCOSE [id number] 23:19:00 Test Item Value Reference Range Comments POC-GLUCOSE METER (BEAKER) 150 mg/dL 70-110 TESTED AT [address] (test lkcr=4911) [place] [address] POCT-GLUCOSE [id number] 18:31:00 Test Item Value Reference Range Comments POC-GLUCOSE METER (BEAKER) 154 mg/dL 70-110 TESTED AT [address] (test uyyr=2800) [place] [address] HEMOGLOBIN AND [id number] 05:20:00 Test Item Value Reference Range Comments HEMOGLOBIN (BEAKER) (test psma=940) 9.0 GM/DL 13.7-17.5 HEMATOCRIT (BEAKER) (test dblu=782) 27.1 % 40.1-51.0 HEMOGLOBIN AND [id number] 23:18:00 Test Item Value Reference Range Comments HEMOGLOBIN (BEAKER) (test uxpj=657) 8.9 GM/DL 13.7-17.5 HEMATOCRIT (BEAKER) (test cuwa=737) 27.6 % 40.1-51.0 POCT-GLUCOSE [id number] 20:22:00 Test Item Value Reference Range Comments POC-GLUCOSE METER (BEAKER) 209 mg/dL 70-110 TESTED AT [address] (test offp=3834) [place] [address] HEMOGLOBIN AND [id number] 19:39:00 Test Item Value Reference Range Comments HEMOGLOBIN (BEAKER) (test lesw=537) 8.6 GM/DL 13.7-17.5 HEMATOCRIT (BEAKER) (test nyyx=525) 26.8 % 40.1-51.0 TISSUE [id number] 17:21:00Surgical Pathology Report Case: [id number] Authorizing Provider: Edel Washington MD Collected: 12/23/2018 1526 Ordering Location: [place] [address] ICU Received: 12/25/2018 0859 Pathologist: Arthur Brown MD Specimen: Biopsy, Gastric, RANDOM BODY AND ANTRUM BX R/O H PYLORI Special stainsfor fungal organisms (GMS, PAS) and acid fast bacilli (AFB) performed on block A1 are negative.Immunostains for helicobacter are negative.Immunistains for CMV, HSV1, and HSV2 are negative.Addendum electronically signed by Arthur Brown MD on 12/26/2018 at 5:21 PMPART A RANDOM GASTRIC BIOPSY:ACTIVE CHRONIC GASTRITIS WITH REGENERATIVE FEATURES.NEGATIVE FOR INTESTINAL METAPLASIA, DYSPLASIA, ORINVASIVE CARCINOMA.WARTHIN STARRY STAIN FOR HELICOBACTER IS NEGATIVE.STUDIES FOR ADDITIONAL INFECTIOUS ETIOLOGIES ARE PENDING, ADDENDUM REPORT TO FOLLOW. Signing Pathologist Direct Phone Line: [phone], [phone], [phone] and postop diagnosis: GI bleedingRandom body and antrum biopsy rule out H. pyloriReceived in formalin labeled with the patient's name, accession number and "biopsy, gastric" are multiple russell soft tissue fragments ranging 0.2-0.5 cm which are submitted in toto in A1. CG/pl PERFORMED.The interpretation of this case included the use of immunohistochemistry or special stains.BLOCK A1-WARTHIN STARRY, AFB, GMS, PAS, HSV1, HSV2, CMV, HELICOBACTER IMMUNOSTAINControl Slides Examined: In-house known positive controls were evaluated along with the test tissue. These control slides run alongside of the patients sample show appropriate staining. Internal positive and negative controls when available are evaluated Immunohistochemistry technical testing was performed at [facility], Pathology Laboratory where it was developed and its performance characteristics were determined. It has not been cleared or approved by the U.S. Food and Drug Administration. The FDA hasdetermined that such clearance or approval is not necessary. The test is used for clinical purposes.It should not be regarded as investigational or for research. This laboratory is certified under theClinical Laboratory Improvement Amendments of 1988 (CLIA-88) as qualified to perform high complexityclinical laboratory testing.HEMOGLOBIN AND [id number] 17:20:00 Test Item Value Reference Range Comments HEMOGLOBIN (BEAKER) (test rjic=105) 8.6 GM/DL 13.7-17.5 HEMATOCRIT (BEAKER) (test zbtr=375) 26.5 % 40.1-51.0 POCT-GLUCOSE [id number] 17:05:00 Test Item Value Reference Range Comments POC-GLUCOSE METER (BEAKER) 147 mg/dL 70-110 TESTED AT [address] (test owwu=1216) [place] [address] HEMOGLOBIN AND [id number] 12:16:00 Test Item Value Reference Range Comments HEMOGLOBIN (BEAKER) (test opqt=420) 8.5 GM/DL 13.7-17.5 HEMATOCRIT (BEAKER) (test iufr=157) 25.3 % 40.1-51.0 POCT-GLUCOSE [id number] 11:51:00 Test Item Value Reference Range Comments POC-GLUCOSE METER (BEAKER) 199 mg/dL 70-110 TESTED AT [address] (test yipe=4791) [place] [address] HEMOGLOBIN AND [id number] 09:54:00 Test Item Value Reference Range Comments HEMOGLOBIN (BEAKER) (test xowt=422) 8.5 GM/DL 13.7-17.5 HEMATOCRIT (BEAKER) (test gyzj=696) 26.3 % 40.1-51.0 POCT-GLUCOSE [id number] 07:39:00 Test Item Value Reference Range Comments POC-GLUCOSE METER (BEAKER) 142 mg/dL 70-110 TESTED AT [address] (test htov=5617) [place] [id number] CBC W/PLT COUNT & AUTO [id number] 04:25:00 Test Item Value Reference Range Comments WHITE BLOOD CELL COUNT (BEAKER) (test qezv=140) 5.1 K/ L 3.5-10.5 RED BLOOD CELL COUNT (BEAKER) (test anrb=530) 2.73 M/ L 4.63-6.08 HEMOGLOBIN (BEAKER) (test laul=362) 8.3 GM/DL 13.7-17.5 HEMATOCRIT (BEAKER) (test gjxg=113) 25.1 % 40.1-51.0 MEAN CORPUSCULAR VOLUME (BEAKER) (test aksu=010) 91.9 fL 79.0-92.2 MEAN CORPUSCULAR HEMOGLOBIN (BEAKER) (test 30.4 pg 25.7-32.2 syki=122) MEAN CORPUSCULAR HEMOGLOBIN CONC (BEAKER) (test 33.1 GM/DL 32.3-36.5 vpuj=055) RED CELL DISTRIBUTION WIDTH (BEAKER) (test 15.3 % 11.6-14.4 sxnp=462) PLATELET COUNT (BEAKER) (test xtbx=185) 191 K/CU MM 150-450 MEAN PLATELET VOLUME (BEAKER) (test egoj=332) 10.0 fL 9.4-12.4 NUCLEATED RED BLOOD CELLS (BEAKER) (test 0 /100 WBC 0-0 dtva=575) NEUTROPHILS RELATIVE PERCENT (BEAKER) (test 67 % ciip=432) LYMPHOCYTES RELATIVE PERCENT (BEAKER) (test 20 % zwgb=266) MONOCYTES RELATIVE PERCENT (BEAKER) (test 10 % jgiw=781) EOSINOPHILS RELATIVE PERCENT (BEAKER) (test 2 % uqrk=353) BASOPHILS RELATIVE PERCENT (BEAKER) (test 0 % miup=281) NEUTROPHILS ABSOLUTE COUNT (BEAKER) (test 3.42 K/ L 1.78-5.38 ndal=480) LYMPHOCYTES ABSOLUTE COUNT (BEAKER) (test 1.00 K/ L 1.32-3.57 nqln=922) MONOCYTES ABSOLUTE COUNT (BEAKER) (test 0.51 K/ L 0.30-0.82 kplw=469) EOSINOPHILS ABSOLUTE COUNT (BEAKER) (test 0.10 K/ L 0.04-0.54 nejv=278) BASOPHILS ABSOLUTE COUNT (BEAKER) (test 0.02 K/ L 0.01-0.08 edbo=358) IMMATURE GRANULOCYTES-RELATIVE PERCENT (BEAKER) 0 % 0-1 (test umhi=2550) CBC W/PLT COUNT & AUTO [id number] 01:49:00 Test Item Value Reference Range Comments WHITE BLOOD CELL COUNT (BEAKER) (test nxti=422) 5.0 K/ L 3.5-10.5 RED BLOOD CELL COUNT (BEAKER) (test mplk=967) 2.73 M/ L 4.63-6.08 HEMOGLOBIN (BEAKER) (test uwlc=822) 8.2 GM/DL 13.7-17.5 HEMATOCRIT (BEAKER) (test xnfa=363) 25.1 % 40.1-51.0 MEAN CORPUSCULAR VOLUME (BEAKER) (test yitu=506) 91.9 fL 79.0-92.2 MEAN CORPUSCULAR HEMOGLOBIN (BEAKER) (test 30.0 pg 25.7-32.2 rcem=151) MEAN CORPUSCULAR HEMOGLOBIN CONC (BEAKER) (test 32.7 GM/DL 32.3-36.5 zzib=291) RED CELL DISTRIBUTION WIDTH (BEAKER) (test 15.5 % 11.6-14.4 duii=747) PLATELET COUNT (BEAKER) (test berq=910) 172 K/CU MM 150-450 MEAN PLATELET VOLUME (BEAKER) (test lodu=209) 10.2 fL 9.4-12.4 NUCLEATED RED BLOOD CELLS (BEAKER) (test 0 /100 WBC 0-0 sstw=060) NEUTROPHILS RELATIVE PERCENT (BEAKER) (test 70 % epri=062) LYMPHOCYTES RELATIVE PERCENT (BEAKER) (test 19 % xjwp=602) MONOCYTES RELATIVE PERCENT (BEAKER) (test 9 % ahnt=025) EOSINOPHILS RELATIVE PERCENT (BEAKER) (test 2 % bsta=482) BASOPHILS RELATIVE PERCENT (BEAKER) (test 0 % azyi=849) NEUTROPHILS ABSOLUTE COUNT (BEAKER) (test 3.50 K/ L 1.78-5.38 tlhu=315) LYMPHOCYTES ABSOLUTE COUNT (BEAKER) (test 0.94 K/ L 1.32-3.57 pmoc=400) MONOCYTES ABSOLUTE COUNT (BEAKER) (test 0.45 K/ L 0.30-0.82 oahy=421) EOSINOPHILS ABSOLUTE COUNT (BEAKER) (test 0.08 K/ L 0.04-0.54 fxao=629) BASOPHILS ABSOLUTE COUNT (BEAKER) (test 0.02 K/ L 0.01-0.08 scxt=164) IMMATURE GRANULOCYTES-RELATIVE PERCENT (BEAKER) 0 % 0-1 (test vxrk=7063) HEMOGLOBIN AND [id number] 23:44:00 Test Item Value Reference Range Comments HEMOGLOBIN (BEAKER) (test gvhv=284) 6.7 GM/DL 13.7-17.5 HEMATOCRIT (BEAKER) (test izfg=944) 20.9 % 40.1-51.0 POCT-GLUCOSE [id number] 21:22:00 Test Item Value Reference Range Comments POC-GLUCOSE METER (BEAKER) 256 mg/dL 70-110 TESTED AT [address] (test ipda=3619) [place] [address] HEMOGLOBIN AND [id number] 20:41:00 Test Item Value Reference Range Comments HEMOGLOBIN (BEAKER) (test tomw=195) 8.1 GM/DL 13.7-17.5 HEMATOCRIT (BEAKER) (test xiut=127) 24.6 % 40.1-51.0 POCT-GLUCOSE [id number] 17:16:00 Test Item Value Reference Range Comments POC-GLUCOSE METER (BEAKER) 207 mg/dL 70-110 TESTED AT [address] (test xqfg=8115) [place] [address] HEMOGLOBIN AND [id number] 15:43:00 Test Item Value Reference Range Comments HEMOGLOBIN (BEAKER) (test ekxn=021) 8.9 GM/DL 13.7-17.5 HEMATOCRIT (BEAKER) (test dqkb=099) 28.5 % 40.1-51.0 HEMOGLOBIN AND [id number] 11:57:00 Test Item Value Reference Range Comments HEMOGLOBIN (BEAKER) (test sbsk=569) 7.9 GM/DL 13.7-17.5 HEMATOCRIT (BEAKER) (test hqap=271) 24.7 % 40.1-51.0 POCT-GLUCOSE [id number] 11:38:00 Test Item Value Reference Range Comments POC-GLUCOSE METER (BEAKER) 147 mg/dL 70-110 TESTED AT [address] (test ltdm=9559) [place] [address] POCT-GLUCOSE [id number] 07:31:00 Test Item Value Reference Range Comments POC-GLUCOSE METER (BEAKER) 144 mg/dL 70-110 TESTED AT [address] (test inkq=8317) [place] [address] COMPREHENSIVE METABOLIC [id number] 06:22:00 Test Item Value Reference Range Comments TOTAL PROTEIN (BEAKER) 5.3 gm/dL 6.0-8.3 (test zchp=704) ALBUMIN (BEAKER) (test 2.7 g/dL 3.5-5.0 rrvf=9614) ALKALINE PHOSPHATASE 65 U/L 40-150 (BEAKER) (test lhje=455) BILIRUBIN TOTAL (BEAKER) 0.3 mg/dL 0.2-1.2 (test wavy=350) SODIUM (BEAKER) (test 139 meq/L 136-145 gnhj=743) POTASSIUM (BEAKER) (test 3.9 meq/L 3.5-5.1 fkgb=854) CHLORIDE (BEAKER) (test 101 meq/L 98-107 xrwm=970) CO2 (BEAKER) (test 34 meq/L 22-29 fkxs=707) BLOOD UREA NITROGEN 52 mg/dL 7-21 (BEAKER) (test ijhk=095) CREATININE (BEAKER) (test 0.99 mg/dL 0.57-1.25 ebxf=273) GLUCOSE RANDOM (BEAKER) 138 mg/dL 70-105 (test bnnc=993) CALCIUM (BEAKER) (test 8.3 mg/dL 8.4-10.2 relc=105) AST (SGOT) (BEAKER) (test 31 U/L 5-34 nvnt=086) ALT (SGPT) (BEAKER) (test 61 U/L 6-55 mocy=877) EGFR (BEAKER) (test mL/min/1.73 sq m INSUFFICIENT CLINICAL DATA cabb=8782) TO CALCULATE ESTIMATED GFR. HEMOGLOBIN AND [id number] 06:02:00 Test Item Value Reference Range Comments HEMOGLOBIN (BEAKER) (test cpfh=253) 8.1 GM/DL 13.7-17.5 HEMATOCRIT (BEAKER) (test mqph=394) 25.1 % 40.1-51.0 CBC W/PLT COUNT & AUTO [id number] 06:02:00 Test Item Value Reference Range Comments WHITE BLOOD CELL COUNT (BEAKER) (test qwhn=206) 5.3 K/ L 3.5-10.5 RED BLOOD CELL COUNT (BEAKER) (test xwhs=815) 2.69 M/ L 4.63-6.08 HEMOGLOBIN (BEAKER) (test stqv=360) 8.1 GM/DL 13.7-17.5 HEMATOCRIT (BEAKER) (test ifjb=475) 25.1 % 40.1-51.0 MEAN CORPUSCULAR VOLUME (BEAKER) (test fjvs=276) 93.3 fL 79.0-92.2 MEAN CORPUSCULAR HEMOGLOBIN (BEAKER) (test 30.1 pg 25.7-32.2 khwy=087) MEAN CORPUSCULAR HEMOGLOBIN CONC (BEAKER) (test 32.3 GM/DL 32.3-36.5 gerp=978) RED CELL DISTRIBUTION WIDTH (BEAKER) (test 15.9 % 11.6-14.4 cpzv=821) PLATELET COUNT (BEAKER) (test lduj=627) 165 K/CU MM 150-450 MEAN PLATELET VOLUME (BEAKER) (test vxzn=648) 10.4 fL 9.4-12.4 NUCLEATED RED BLOOD CELLS (BEAKER) (test 0 /100 WBC 0-0 mpem=645) NEUTROPHILS RELATIVE PERCENT (BEAKER) (test 63 % hhpe=298) LYMPHOCYTES RELATIVE PERCENT (BEAKER) (test 20 % qgim=961) MONOCYTES RELATIVE PERCENT (BEAKER) (test 12 % srum=342) EOSINOPHILS RELATIVE PERCENT (BEAKER) (test 4 % ykvp=596) BASOPHILS RELATIVE PERCENT (BEAKER) (test 0 % vyxf=712) NEUTROPHILS ABSOLUTE COUNT (BEAKER) (test 3.34 K/ L 1.78-5.38 kevh=914) LYMPHOCYTES ABSOLUTE COUNT (BEAKER) (test 1.05 K/ L 1.32-3.57 nabp=317) MONOCYTES ABSOLUTE COUNT (BEAKER) (test 0.64 K/ L 0.30-0.82 ervw=793) EOSINOPHILS ABSOLUTE COUNT (BEAKER) (test 0.19 K/ L 0.04-0.54 xfco=663) BASOPHILS ABSOLUTE COUNT (BEAKER) (test 0.02 K/ L 0.01-0.08 eash=226) IMMATURE GRANULOCYTES-RELATIVE PERCENT (BEAKER) 0 % 0-1 (test fuca=2249) HEMOGLOBIN AND [id number] 00:23:00 Test Item Value Reference Range Comments HEMOGLOBIN (BEAKER) (test knpk=122) 8.2 GM/DL 13.7-17.5 HEMATOCRIT (BEAKER) (test nxtf=860) 25.4 % 40.1-51.0 POCT-GLUCOSE [id number] 22:10:00 Test Item Value Reference Range Comments POC-GLUCOSE METER (BEAKER) 161 mg/dL 70-110 TESTED AT [address] (test vtbu=3127) [place] [id number] POCT-GLUCOSE [id number] 16:55:00 Test Item Value Reference Range Comments POC-GLUCOSE METER (BEAKER) 238 mg/dL 70-110 TESTED AT [address] (test xkyh=3781) [place] [address] HEMOGLOBIN AND [id number] 14:42:00 Test Item Value Reference Range Comments HEMOGLOBIN (BEAKER) (test kxhk=699) 6.9 GM/DL 13.7-17.5 HEMATOCRIT (BEAKER) (test pkiv=969) 21.7 % 40.1-51.0 POCT-GLUCOSE [id number] 11:42:00 Test Item Value Reference Range Comments POC-GLUCOSE METER (BEAKER) 288 mg/dL 70-110 TESTED AT [address] (test soxx=9007) [place] [address] POCT-GLUCOSE [id number] 09:30:00 Test Item Value Reference Range Comments POC-GLUCOSE METER (BEAKER) 264 mg/dL 70-110 TESTED AT [address] (test fwvp=4245) [place] [address] HEMOGLOBIN AND [id number] 09:11:00 Test Item Value Reference Range Comments HEMOGLOBIN (BEAKER) (test peis=459) 7.2 GM/DL 13.7-17.5 HEMATOCRIT (BEAKER) (test urng=374) 22.3 % 40.1-51.0 BLOOD CULTURE IDENTIFICATION [id number] 08:07:00 Test Item Value Reference Range Comments LISTERIA MONOCYTOGENES (test Not detected Not detected geua=[id number]) STAPHYLOCOCCUS (test Detected Not detected Coagulase negative Staph pmak=4969298) species (CoNS)- methicillin resistantFirst-line therapy: Vancomycin MecA DETECTED Possible contamination. The likelihood of pathogenicity is increased if the organism is observed in multiple blood cultures obtained from separate venipunctures. Reference Range: Not Detected STAPHYLOCOCCUS AUREUS (test Not detected Not detected cnxb=6968846) STREPTOCOCCUS (test Not detected Not detected utvq=7211614) STREPTOCOCCUS AGALACTIAE (GROUP Not detected Not detected B) (test sdtt=4248139) STREPTOCOCCUS PNEUMONIAE (test Not detected Not detected svsr=1703941) STREPTOCOCCUS PYOGENES (GROUP Not detected Not detected A) (test wdtu=6658585) ACINETOBACTER BAUMANNII (test Not detected Not detected lihh=0561769) HAEMOPHILUS INFLUENZAE (test Not detected Not detected ucsa=7078386) NEISSERIA MENINGITIDIS (test Not detected Not detected lmnt=2026716) ENTEROBACTERIACEAE (test Not detected Not detected hakv=6878234) ENTEROBACTER CLOACOE COMPLEX Not detected Not detected (test qimf=4959390) KLEBSIELLA OXYTOCA (test Not detected Not detected xzeu=9869430) KLEBSIELLA PNEUMONIAE (test Not detected Not detected cohn=3144) PROTEUS (test ggvd=1467013) Not detected Not detected SERRATIA MARCESCENS (test Not detected Not detected vdkj=0655843) SHARAD ALBICANS (test Not detected Not detected zeev=8293506) SHARAD GLABRATA (test Not detected Not detected mhqa=9284267) SHARAD KRUSEI (test Not detected Not detected deyk=5619364) SHARAD PARAPSILOSIS (test Not detected Not detected gxax=1113513) SHARAD TROPICALIS (test Not detected Not detected asaj=8577684) ESCHERICHIA COLI (test Not detected Not detected bmck=1374299) METHICILLIN-RESISTANCE GENE Detected Not detected (test xyta=8330635) VANCOMYCIN-RESISTANCE GENE Not detected (test nyxi=3053232) CARBAPENEM-RESISTANCE GENE Not detected (test ycrt=6592396) ENTEROCOCCUS-BEAKER (test Not detected Not detected nloq=9447163) PSEUDOMONAS AERUGINOSA-BEAKER Not detected Not detected (test lwsf=3335661) Other bacteria and resistance markers not targeted by this PCR panel cannot be excluded; therefore clinical correlation and follow up of serology, culture results, and other molecular studies is required. The results are not intended to be used as the sole means for clinical diagnosis or patient management decisions. This sample was tested at the [facility] Molecular Diagnostics Laboratory using the [employer] Blood Culture ID Panel. It is FDA cleared and has been verified and approved by the [facility] Molecular Diagnostics Laboratory for clinical use. This laboratory is CLIA-certified and College ofAmerican Pathologists (CAP)-accredited to perform high complexity testing.COMPREHENSIVE METABOLIC [id number] 06:41:00 Test Item Value Reference Range Comments TOTAL PROTEIN (BEAKER) 5.4 gm/dL 6.0-8.3 (test hndm=671) ALBUMIN (BEAKER) (test 2.8 g/dL 3.5-5.0 exyv=5212) ALKALINE PHOSPHATASE 77 U/L 40-150 (BEAKER) (test gqyf=530) BILIRUBIN TOTAL (BEAKER) 0.3 mg/dL 0.2-1.2 (test ozrj=487) SODIUM (BEAKER) (test 138 meq/L 136-145 xqeg=391) POTASSIUM (BEAKER) (test 4.4 meq/L 3.5-5.1 dgcs=330) CHLORIDE (BEAKER) (test 100 meq/L 98-107 rwlm=402) CO2 (BEAKER) (test 31 meq/L 22-29 chfi=897) BLOOD UREA NITROGEN 75 mg/dL 7-21 (BEAKER) (test qbvq=274) CREATININE (BEAKER) (test 1.41 mg/dL 0.57-1.25 oscb=318) GLUCOSE RANDOM (BEAKER) 236 mg/dL 70-105 (test byou=277) CALCIUM (BEAKER) (test 8.3 mg/dL 8.4-10.2 cnia=128) AST (SGOT) (BEAKER) (test 37 U/L 5-34 lsdk=280) ALT (SGPT) (BEAKER) (test 59 U/L 6-55 nnyg=066) EGFR (BEAKER) (test mL/min/1.73 sq m INSUFFICIENT CLINICAL DATA qmfo=5444) TO CALCULATE ESTIMATED GFR. CBC W/PLT COUNT & AUTO [id number] 06:08:00 Test Item Value Reference Range Comments WHITE BLOOD CELL COUNT (BEAKER) (test bljd=012) 10.3 K/ L 3.5-10.5 RED BLOOD CELL COUNT (BEAKER) (test ujde=167) 2.50 M/ L 4.63-6.08 HEMOGLOBIN (BEAKER) (test umda=656) 7.7 GM/DL 13.7-17.5 HEMATOCRIT (BEAKER) (test yyyk=475) 23.0 % 40.1-51.0 MEAN CORPUSCULAR VOLUME (BEAKER) (test alrs=146) 92.0 fL 79.0-92.2 MEAN CORPUSCULAR HEMOGLOBIN (BEAKER) (test 30.8 pg 25.7-32.2 ynjm=415) MEAN CORPUSCULAR HEMOGLOBIN CONC (BEAKER) (test 33.5 GM/DL 32.3-36.5 aoet=711) RED CELL DISTRIBUTION WIDTH (BEAKER) (test 15.9 % 11.6-14.4 lyvz=072) PLATELET COUNT (BEAKER) (test pihv=765) 206 K/CU MM 150-450 MEAN PLATELET VOLUME (BEAKER) (test zoom=576) 11.0 fL 9.4-12.4 NUCLEATED RED BLOOD CELLS (BEAKER) (test 0 /100 WBC 0-0 ebjy=063) NEUTROPHILS RELATIVE PERCENT (BEAKER) (test 77 % hipl=666) LYMPHOCYTES RELATIVE PERCENT (BEAKER) (test 10 % qyai=422) MONOCYTES RELATIVE PERCENT (BEAKER) (test 12 % ujsy=315) EOSINOPHILS RELATIVE PERCENT (BEAKER) (test 1 % yqvl=607) BASOPHILS RELATIVE PERCENT (BEAKER) (test 0 % oxmn=221) NEUTROPHILS ABSOLUTE COUNT (BEAKER) (test 7.93 K/ L 1.78-5.38 vcql=003) LYMPHOCYTES ABSOLUTE COUNT (BEAKER) (test 0.97 K/ L 1.32-3.57 kgpm=992) MONOCYTES ABSOLUTE COUNT (BEAKER) (test 1.18 K/ L 0.30-0.82 vmjw=694) EOSINOPHILS ABSOLUTE COUNT (BEAKER) (test 0.09 K/ L 0.04-0.54 jeav=925) BASOPHILS ABSOLUTE COUNT (BEAKER) (test 0.04 K/ L 0.01-0.08 sgil=637) IMMATURE GRANULOCYTES-RELATIVE PERCENT (BEAKER) 0 % 0-1 (test fste=4974) POCT-GLUCOSE [id number] 05:51:00 Test Item Value Reference Range Comments POC-GLUCOSE METER (BEAKER) 272 mg/dL 70-110 TESTED AT [address] (test bscp=8219) [place] [address] HEMOGLOBIN AND [id number] 02:14:00 Test Item Value Reference Range Comments HEMOGLOBIN (BEAKER) (test nptz=636) 8.1 GM/DL 13.7-17.5 HEMATOCRIT (BEAKER) (test dwob=295) 24.4 % 40.1-51.0 POCT-GLUCOSE [id number] 22:55:00 Test Item Value Reference Range Comments POC-GLUCOSE METER (BEAKER) 226 mg/dL 70-110 TESTED AT [address] (test elip=1691) [place] [address] HEMOGLOBIN AND [id number] 21:34:00 Test Item Value Reference Range Comments HEMOGLOBIN (BEAKER) (test qjgp=297) 8.6 GM/DL 13.7-17.5 HEMATOCRIT (BEAKER) (test ndra=583) 25.7 % 40.1-51.0 POCT-GLUCOSE [id number] 18:21:00 Test Item Value Reference Range Comments POC-GLUCOSE METER (BEAKER) 220 mg/dL 70-[address] [facility] [address] [facility] (test wwyf=1979) [facility] [address] BASIC METABOLIC [id number] 16:32:00 Test Item Value Reference Range Comments SODIUM (BEAKER) (test 138 meq/L 136-145 iyve=111) POTASSIUM (BEAKER) (test 4.8 meq/L 3.5-5.1 qmoh=881) CHLORIDE (BEAKER) (test 98 meq/L 98-107 vukv=755) CO2 (BEAKER) (test 31 meq/L 22-29 rwps=575) BLOOD UREA NITROGEN 79 mg/dL 7-21 (BEAKER) (test ovxp=175) CREATININE (BEAKER) (test 1.65 mg/dL 0.57-1.25 ykji=603) GLUCOSE RANDOM (BEAKER) 295 mg/dL 70-105 (test vlxy=682) CALCIUM (BEAKER) (test 8.3 mg/dL 8.4-10.2 xtlk=799) EGFR (BEAKER) (test mL/min/1.73 sq m INSUFFICIENT CLINICAL DATA xknh=4523) TO CALCULATE ESTIMATED GFR. HEMOGLOBIN AND [id number] 16:20:00 Test Item Value Reference Range Comments HEMOGLOBIN (BEAKER) (test riya=669) 9.0 GM/DL 13.7-17.5 HEMATOCRIT (BEAKER) (test qqyf=270) 27.1 % 40.1-51.0 TROPONIN [id number] 12:53:00 Test Item Value Reference Range Comments TROPONIN I (BEAKER) (test relb=287) < ng/mL 0.00-0.03 Troponin I (TnI) levels must [...] failure, acidosis, acute neurological disease, and persistent tachyarrhythmia.POCT-GLUCOSE [id number] 12:47:00 Test Item Value Reference Range Comments POC-GLUCOSE METER (BEAKER) 180 mg/dL 70-[address] [facility] [address] [facility] (test qozw=9689) [facility] [address] HEMOGLOBIN AND [id number] 12:33:00 Test Item Value Reference Range Comments HEMOGLOBIN (BEAKER) (test viup=059) 9.7 GM/DL 13.7-17.5 HEMATOCRIT (BEAKER) (test bsti=216) 28.9 % 40.1-51.0 TROPONIN [id number] 07:18:00 Test Item Value Reference Range Comments TROPONIN I (BEAKER) (test rgzt=614) 0.02 ng/mL 0.00-0.03 Troponin I (TnI) levels [...] failure, acidosis, acute neurological disease, and persistent tachyarrhythmia.RAD, ABDOMEN/KUB, 1 VIEW [id number] 07 :11:00Reason for exam:->abd painShould this be performed at the bedside?-> YesFINAL REPORT RAD, ABDOMEN/KUB, 1 VIEW AP CLINICAL INDICATION: abd pain COMPARISON: Correlation abdomen pelvis CT December 16, 2018 TECHNIQUE: Two frontal radiographs of the abdomen. IMPRESSION: Scattered gaseous distention without dilation or pneumatosis. Surgical changes in the right hemiabdomen are noted. There is a moderate to large distal colonic stool burden. Degenerativechanges are evident within the axial skeleton. Signed: JR Mcelroy Robert MDReport Verified Date/Time: 12/23/2018 07:11:30 Reading Location: [address] Neuro Reading Room [id number] 07:10:00 Test Item Value Reference Range Comments PHOSPHORUS (BEAKER) (test lhpf=247) 4.8 mg/dL 2.3-4.7 [id number] 07:10:00 Test Item Value Reference Range Comments MAGNESIUM (BEAKER) (test jojz=693) 2.1 mg/dL 1.6-2.6 RAD, CHEST, 1 VIEW, NON [id number] 07:08:00Reason for exam:-> hypotensionShould this be performed at the bedside?->YesFINAL REPORT INDICATION: hypotension COMPARISON:December 06 TECHNIQUE: Chest radiograph, single view, portable technique. FINDINGS / IMPRESSION: Lungs are clear. Heart shadow normal insize for portable technique. No pneumothorax. Osseous structures unremarkable. Signed: Dereje Scruggs MDReport Verified Date /Time: 12/23/2018 07:08:21 Reading Location: [address] Body Reading Room BLOOD GAS, [id number] 06:57:00 Test Item Value Reference Range Comments PH ARTERIAL (BEAKER) (test piil=547) 7.39 7.35-7.45 PCO2 ARTERIAL (BEAKER) (test sdab=694) 50 mmHg 35-45 PO2 ARTERIAL (BEAKER) (test qaog=575) 171 mmHg 80-90 O2 SATURATION ARTERIAL (BEAKER) (test ouoj=379) 99.1 % 96.0-97.0 HCO3 ARTERIAL (BEAKER) (test qgiu=731) 30 mmol/L 21-29 BASE EXCESS ARTERIAL (BEAKER) (test qamq=885) 4.3 mmol/L -2.0-3.0 PATIENT TEMPERATURE (BEAKER) (test ebex=7358) 37.0 C FIO2 (BEAKER) (test unbu=3419) 32.0 % TROPONIN [id number] 06:23:00 Test Item Value Reference Range Comments TROPONIN I (BEAKER) (test guuu=811) < ng/mL 0.00-0.03 Troponin I (TnI) levels must [...] failure, acidosis, acute neurological disease, and persistent tachyarrhythmia.[id number] 06:18:00 Test Item Value Reference Range Comments FIBRINOGEN LEVEL (BEAKER) (test vrrd=082) 383 mg/dl 225-434 PROTHROMBIN TIME/[id number] 06:17:00 Test Item Value Reference Range Comments PROTIME (BEAKER) (test jupm=998) 15.6 seconds 11.7-14.7 INR (BEAKER) (test xnoz=377) 1.3 <=5.9 RECOMMENDED COUMADIN/WARFARIN INR THERAPY RANGESSTANDARD DOSE: 2.0 - 3.0 Includes: PROPHYLAXIS forvenous thrombosis, systemic embolization; TREATMENT for venous thrombosis and/or pulmonary embolus.HIGH RISK: Target INR is 2.5-3.5 for patients with mechanical heart valves.COMPREHENSIVE METABOLIC [id number] 06:16:00 Test Item Value Reference Range Comments TOTAL PROTEIN (BEAKER) 6.0 gm/dL 6.0-8.3 (test botu=918) ALBUMIN (BEAKER) (test 3.2 g/dL 3.5-5.0 oqgh=2433) ALKALINE PHOSPHATASE 98 U/L 40-150 (BEAKER) (test hmix=335) BILIRUBIN TOTAL (BEAKER) 0.3 mg/dL 0.2-1.2 (test nhwc=038) SODIUM (BEAKER) (test 136 meq/L 136-145 szyo=419) POTASSIUM (BEAKER) (test 5.4 meq/L 3.5-5.1 rlia=855) CHLORIDE (BEAKER) (test 98 meq/L 98-107 nyor=398) CO2 (BEAKER) (test 27 meq/L 22-29 tcwf=158) BLOOD UREA NITROGEN 78 mg/dL 7-21 (BEAKER) (test gpeq=561) CREATININE (BEAKER) (test 1.58 mg/dL 0.57-1.25 kjuh=454) GLUCOSE RANDOM (BEAKER) 262 mg/dL 70-105 (test mwfl=938) CALCIUM (BEAKER) (test 8.3 mg/dL 8.4-10.2 ufyj=600) AST (SGOT) (BEAKER) (test 22 U/L 5-34 xmbb=985) ALT (SGPT) (BEAKER) (test 22 U/L 6-55 hksb=714) EGFR (BEAKER) (test mL/min/1.73 sq m INSUFFICIENT CLINICAL DATA igvz=4033) TO CALCULATE ESTIMATED GFR. LACTIC ACID, [id number] 06:06:00 Test Item Value Reference Range Comments LACTATE BLOOD VENOUS (2) (BEAKER) (test 2.6 mmol/L 0.5-2.2 xrlh=5209) CBC W/PLT COUNT & AUTO [id number] 06:02:00 Test Item Value Reference Range Comments WHITE BLOOD CELL COUNT (BEAKER) (test ynok=213) 18.1 K/ L 3.5-10.5 RED BLOOD CELL COUNT (BEAKER) (test izqu=826) 2.26 M/ L 4.63-6.08 HEMOGLOBIN (BEAKER) (test cbhx=956) 6.6 GM/DL 13.7-17.5 HEMATOCRIT (BEAKER) (test sotj=882) 21.1 % 40.1-51.0 MEAN CORPUSCULAR VOLUME (BEAKER) (test pgru=572) 93.4 fL 79.0-92.2 MEAN CORPUSCULAR HEMOGLOBIN (BEAKER) (test 29.2 pg 25.7-32.2 pyla=031) MEAN CORPUSCULAR HEMOGLOBIN CONC (BEAKER) (test 31.3 GM/DL 32.3-36.5 uqqs=499) RED CELL DISTRIBUTION WIDTH (BEAKER) (test 15.8 % 11.6-14.4 eknh=946) PLATELET COUNT (BEAKER) (test fjkf=153) 286 K/CU MM 150-450 MEAN PLATELET VOLUME (BEAKER) (test rdza=791) 10.8 fL 9.4-12.4 NUCLEATED RED BLOOD CELLS (BEAKER) (test 0 /100 WBC 0-0 ouzn=247) NEUTROPHILS RELATIVE PERCENT (BEAKER) (test 82 % blri=925) LYMPHOCYTES RELATIVE PERCENT (BEAKER) (test 10 % ysef=852) MONOCYTES RELATIVE PERCENT (BEAKER) (test 6 % unsd=390) EOSINOPHILS RELATIVE PERCENT (BEAKER) (test 0 % udtg=949) BASOPHILS RELATIVE PERCENT (BEAKER) (test 0 % iekd=335) NEUTROPHILS ABSOLUTE COUNT (BEAKER) (test 14.81 K/ L 1.78-5.38 zbyj=728) LYMPHOCYTES ABSOLUTE COUNT (BEAKER) (test 1.88 K/ L 1.32-3.57 dznv=371) MONOCYTES ABSOLUTE COUNT (BEAKER) (test 1.16 K/ L 0.30-0.82 laiz=153) EOSINOPHILS ABSOLUTE COUNT (BEAKER) (test 0.04 K/ L 0.04-0.54 peze=558) BASOPHILS ABSOLUTE COUNT (BEAKER) (test 0.06 K/ L 0.01-0.08 ixzt=012) IMMATURE GRANULOCYTES-RELATIVE PERCENT (BEAKER) 1 % 0-1 (test lbff=9001) BLOOD [id number] 02:01:00 Test Item Value Reference Range Comments CULTURE (BEAKER) (test xyvg=2547) No growth in 5 days BLOOD [id number] 02:01:00 Test Item Value Reference Range Comments CULTURE (BEAKER) (test fddh=9069) No growth in 5 days POCT-GLUCOSE [id number] 17:19:00 Test Item Value Reference Range Comments POC-GLUCOSE METER (BEAKER) 203 mg/dL 70-110 TESTED AT [address] (test nnif=7265) [place] [address] POCT-GLUCOSE [id number] 13:33:00 Test Item Value Reference Range Comments POC-GLUCOSE METER (BEAKER) 239 mg/dL 70-110 TESTED AT [address] (test wldj=9121) [facility] [address] CBC W/PLT COUNT & AUTO [id number] 11:15:00 Test Item Value Reference Range Comments WHITE BLOOD CELL COUNT (BEAKER) (test urlz=228) 7.9 K/ L 3.5-10.5 RED BLOOD CELL COUNT (BEAKER) (test pwmq=789) 3.15 M/ L 4.63-6.08 HEMOGLOBIN (BEAKER) (test kdkn=804) 9.1 GM/DL 13.7-17.5 HEMATOCRIT (BEAKER) (test pbjy=855) 28.5 % 40.1-51.0 MEAN CORPUSCULAR VOLUME (BEAKER) (test asek=917) 90.5 fL 79.0-92.2 MEAN CORPUSCULAR HEMOGLOBIN (BEAKER) (test 28.9 pg 25.7-32.2 hwfe=933) MEAN CORPUSCULAR HEMOGLOBIN CONC (BEAKER) (test 31.9 GM/DL 32.3-36.5 pojv=478) RED CELL DISTRIBUTION WIDTH (BEAKER) (test 14.6 % 11.6-14.4 tiki=051) PLATELET COUNT (BEAKER) (test njrw=197) 288 K/CU MM 150-450 MEAN PLATELET VOLUME (BEAKER) (test cjxr=098) 10.6 fL 9.4-12.4 NUCLEATED RED BLOOD CELLS (BEAKER) (test 0 /100 WBC 0-0 knor=993) (CELLAVISION MANUAL DIFF)[id number] 11:15:00 Test Item Value Reference Range Comments NEUTROPHILS - REL (CELLAVISION)(BEAKER) (test 85 % cpol=1360) LYMPHOCYTES - REL (CELLAVISION)(BEAKER) (test 6 % hvol=8080) MONOCYTES - REL (CELLAVISION)(BEAKER) (test 1 % mixj=0133) EOSINOPHILS - REL (CELLAVISION)(BEAKER) (test 1 % mptz=6330) BASOPHILS - REL (CELLAVISION)(BEAKER) (test 1 % orwe=7472) MYELOCYTES - REL (CELLAVISION)(BEAKER) (test 5 % 0-0 jwwq=7345) ATYPICAL LYMPHOCYTES - REL (CELLAVISION)(BEAKER) 1 % 0-0 (test zvzy=2104) NEUTROPHILS - ABS (CELLAVISION)(BEAKER) (test 6.72 K/ul 1.78-5.38 vcni=5849) LYMPHOCYTES - ABS (CELLAVISION)(BEAKER) (test 0.47 K/ul 1.32-3.57 ebru=3463) MONOCYTES - ABS (CELLAVISION)(BEAKER) (test 0.08 K/uL 0.30-0.82 zgrz=3726) EOSINOPHILS - ABS (CELLAVISION)(BEAKER) (test 0.08 K/uL 0.04-0.54 pael=1139) BASOPHILS - ABS (CELLAVISION)(BEAKER) (test 0.08 K/uL 0.01-0.08 kslc=0070) MYELOCYTES-ABS (CELLAVISION)(BEAKER) (test 0.40 K/uL 0.00-0.00 jybr=1714) ATYPICAL LYMPHOCYTES - ABS (CELLAVISION)(BEAKER) 0.08 K/uL 0.00-0.00 (test ibyd=5161) TOTAL COUNTED (BEAKER) (test gfek=3682) 100 SMUDGE CELLS (BEAKER) (test bekx=3118) Present GIANT PLATELETS (BEAKER) (test rdhc=005) Present POLYCHROMATOPHILLIC RBCS(BEAKER) (test tjsv=335) 1+ few HYPOCHROMIA (BEAKER) (test vope=533) 1+ few PLATELET CONCENTRATION (CELLAVISION)(BEAKER) (test Adequate ncoi=9475) Received comment: User comments: Slide comments:BASIC METABOLIC [id number] 08:01:00 Test Item Value Reference Range Comments SODIUM (BEAKER) (test 139 meq/L 136-145 uejy=362) POTASSIUM (BEAKER) (test 4.1 meq/L 3.5-5.1 dxic=496) CHLORIDE (BEAKER) (test 96 meq/L 98-107 tzty=276) CO2 (BEAKER) (test 38 meq/L 22-29 skxe=925) BLOOD UREA NITROGEN 22 mg/dL 7-21 (BEAKER) (test vdsw=998) CREATININE (BEAKER) (test 1.05 mg/dL 0.57-1.25 mfnw=137) GLUCOSE RANDOM (BEAKER) 133 mg/dL 70-105 (test rypz=492) CALCIUM (BEAKER) (test 8.6 mg/dL 8.4-10.2 bszb=698) EGFR (BEAKER) (test mL/min/1.73 sq m INSUFFICIENT CLINICAL DATA btoa=0332) TO CALCULATE ESTIMATED GFR. [id number] 07:59:00 Test Item Value Reference Range Comments MAGNESIUM (BEAKER) (test lxew=508) 1.4 mg/dL 1.6-2.6 POCT-GLUCOSE [id number] 07:45:00 Test Item Value Reference Range Comments POC-GLUCOSE METER (BEAKER) 142 mg/dL 70-[address] [facility] [address] [facility] (test kjin=9363) [facility] [address] POCT-GLUCOSE [id number] 22:03:00 Test Item Value Reference Range Comments POC-GLUCOSE METER (BEAKER) 190 mg/dL 70-110 TESTED AT [address] (test fspn=9396) [facility] [address] POCT-GLUCOSE [id number] 17:27:00 Test Item Value Reference Range Comments POC-GLUCOSE METER (BEAKER) 248 mg/dL 70-110 TESTED AT [address] (test tpso=6566) [facility] [address] POCT-GLUCOSE [id number] 15:04:00 Test Item Value Reference Range Comments POC-GLUCOSE METER (BEAKER) 391 mg/dL 70-110 TESTED AT [address] (test awpi=9166) [facility] [address] POCT-GLUCOSE [id number] 12:31:00 Test Item Value Reference Range Comments POC-GLUCOSE METER (BEAKER) 217 mg/dL 70-110 TESTED AT [address] (test rquq=6168) [facility] [address] CBC W/PLT COUNT & AUTO [id number] 10:07:00 Test Item Value Reference Range Comments WHITE BLOOD CELL COUNT (BEAKER) (test apme=803) 7.4 K/ L 3.5-10.5 RED BLOOD CELL COUNT (BEAKER) (test tdeg=188) 2.86 M/ L 4.63-6.08 HEMOGLOBIN (BEAKER) (test apup=447) 8.4 GM/DL 13.7-17.5 HEMATOCRIT (BEAKER) (test jzhf=518) 26.0 % 40.1-51.0 MEAN CORPUSCULAR VOLUME (BEAKER) (test qhdk=318) 90.9 fL 79.0-92.2 MEAN CORPUSCULAR HEMOGLOBIN (BEAKER) (test 29.4 pg 25.7-32.2 kmnq=657) MEAN CORPUSCULAR HEMOGLOBIN CONC (BEAKER) (test 32.3 GM/DL 32.3-36.5 pwil=212) RED CELL DISTRIBUTION WIDTH (BEAKER) (test 14.8 % 11.6-14.4 ehzp=812) PLATELET COUNT (BEAKER) (test fomw=570) 242 K/CU MM 150-450 MEAN PLATELET VOLUME (BEAKER) (test dspg=905) 10.7 fL 9.4-12.4 NUCLEATED RED BLOOD CELLS (BEAKER) (test 0 /100 WBC 0-0 stsu=819) (CELLAVISION MANUAL DIFF)2018-12-09 10:07:00 Test Item Value Reference Range Comments NEUTROPHILS - REL (CELLAVISION)(BEAKER) (test 76 % hsns=7879) LYMPHOCYTES - REL (CELLAVISION)(BEAKER) (test 11 % fwmz=5158) MONOCYTES - REL (CELLAVISION)(BEAKER) (test 4 % wggg=6279) EOSINOPHILS - REL (CELLAVISION)(BEAKER) (test 2 % skza=9712) BASOPHILS - REL (CELLAVISION)(BEAKER) (test 1 % kamn=9708) MYELOCYTES - REL (CELLAVISION)(BEAKER) (test 2 % 0-0 rzbb=7170) PROMYELOCYTES - REL (CELLAVSION)(BEAKER) (test 3 % 0-0 oeox=1888) ATYPICAL LYMPHOCYTES - REL (CELLAVISION)(BEAKER) 1 % 0-0 (test bxtl=3785) NEUTROPHILS - ABS (CELLAVISION)(BEAKER) (test 5.62 K/ul 1.78-5.38 zadn=4157) LYMPHOCYTES - ABS (CELLAVISION)(BEAKER) (test 0.81 K/ul 1.32-3.57 ztyk=8831) MONOCYTES - ABS (CELLAVISION)(BEAKER) (test 0.30 K/uL 0.30-0.82 cwov=1921) EOSINOPHILS - ABS (CELLAVISION)(BEAKER) (test 0.15 K/uL 0.04-0.54 uabf=9353) BASOPHILS - ABS (CELLAVISION)(BEAKER) (test 0.07 K/uL 0.01-0.08 jazk=2149) MYELOCYTES-ABS (CELLAVISION)(BEAKER) (test 0.15 K/uL 0.00-0.00 crea=9798) PROMYELOCYTES - ABS (CELLAVISION)(BEAKER) (test 0.22 K/uL 0.00-0.00 vzcx=0460) ATYPICAL LYMPHOCYTES - ABS (CELLAVISION)(BEAKER) 0.07 K/uL 0.00-0.00 (test vsdw=6805) TOTAL COUNTED (BEAKER) (test waok=3057) 100 WBC MORPHOLOGY (BEAKER) (test xdwl=504) Normal PLT MORPHOLOGY (BEAKER) (test dxjb=273) Normal ANISOCYTOSIS (BEAKER) (test lflo=164) 1+ few MICROCYTES (BEAKER) (test hdtr=748) 1+ few ARTIFACT (CELLAVISION)(BEAKER) (test faoj=1602) Present PLATELET CONCENTRATION (CELLAVISION)(BEAKER) (test Adequate qbkz=3458) Received comment: User comments: Slide comments:POCT-GLUCOSE [id number] 08: 19:00 Test Item Value Reference Range Comments POC-GLUCOSE METER (BEAKER) 159 mg/dL 70-[address] [facility] [address] [facility] (test syff=3377) [facility] [address] BASIC METABOLIC [id number] 03:52:00 Test Item Value Reference Range Comments SODIUM (BEAKER) (test 135 meq/L 136-145 mkal=593) POTASSIUM (BEAKER) (test 3.9 meq/L 3.5-5.1 jkmv=752) CHLORIDE (BEAKER) (test 97 meq/L 98-107 ywcj=263) CO2 (BEAKER) (test 30 meq/L 22-29 rmwb=087) BLOOD UREA NITROGEN 25 mg/dL 7-21 (BEAKER) (test yjfp=485) CREATININE (BEAKER) (test 1.13 mg/dL 0.57-1.25 hnoy=934) GLUCOSE RANDOM (BEAKER) 151 mg/dL 70-105 (test wwzf=454) CALCIUM (BEAKER) (test 8.3 mg/dL 8.4-10.2 xjiq=408) EGFR (BEAKER) (test mL/min/1.73 sq m INSUFFICIENT CLINICAL DATA dghi=3517) TO CALCULATE ESTIMATED GFR. [id number] 03:49:00 Test Item Value Reference Range Comments MAGNESIUM (BEAKER) (test ydxo=852) 1.5 mg/dL 1.6-2.6 VANCOMYCIN LEVEL, [id number] 03:48:00 Test Item Value Reference Range Comments VANCOMYCIN TROUGH (BEAKER) (test xmzs=363) 17.8 ug/mL 10.0-20.0 POCT-GLUCOSE [id number] 22:44:00 Test Item Value Reference Range Comments POC-GLUCOSE METER (BEAKER) 196 mg/dL 70-110 TESTED AT [address] (test fmee=1121) [place] [id number] POCT-GLUCOSE [id number] 16:58:00 Test Item Value Reference Range Comments POC-GLUCOSE METER (BEAKER) 276 mg/dL 70-110 TESTED AT [address] (test dwyh=3117) [place] [address] POCT-GLUCOSE [id number] 12:49:00 Test Item Value Reference Range Comments POC-GLUCOSE METER (BEAKER) 298 mg/dL 70-110 TESTED AT [address] (test totq=6711) [place] [address] [id number] 09:57:00 Test Item Value Reference Range Comments PROCALCITONIN (BEAKER) (test ztzh=6771) 7.07 ng/mL <0.05 SEPSIS RISK (ng/mL)Low: 0.05-0.50Intermediate: 0.51-2.00High: & gt;=2.01POCT-GLUCOSE [id number] 08:05:00 Test Item Value Reference Range Comments POC-GLUCOSE METER (BEAKER) 157 mg/dL 70-110 TESTED AT [address] (test adxu=2332) [place] [id number] BASIC METABOLIC [id number] 05:38:00 Test Item Value Reference Range Comments SODIUM (BEAKER) (test 138 meq/L 136-145 oxet=698) POTASSIUM (BEAKER) (test 4.3 meq/L 3.5-5.1 Specimen slightly zuqw=970) hemolyzed CHLORIDE (BEAKER) (test 103 meq/L 98-107 jamk=902) CO2 (BEAKER) (test 29 meq/L 22-29 lcpx=985) BLOOD UREA NITROGEN 28 mg/dL 7-21 (BEAKER) (test kzgb=602) CREATININE (BEAKER) (test 1.08 mg/dL 0.57-1.25 Specimen slightly lert=209) hemolyzed GLUCOSE RANDOM (BEAKER) 120 mg/dL 70-105 (test qvfo=043) CALCIUM (BEAKER) (test 8.5 mg/dL 8.4-10.2 wdni=566) EGFR (BEAKER) (test mL/min/1.73 sq m INSUFFICIENT CLINICAL DATA xygy=8205) TO CALCULATE ESTIMATED GFR. [id number] 05:21:00 Test Item Value Reference Range Comments MAGNESIUM (BEAKER) (test 1.6 mg/dL 1.6-2.6 Specimen slightly hemolyzed iqkj=750) CBC W/PLT COUNT & AUTO [id number] 05:01:00 Test Item Value Reference Range Comments WHITE BLOOD CELL COUNT (BEAKER) (test xcbq=472) 11.0 K/ L 3.5-10.5 RED BLOOD CELL COUNT (BEAKER) (test oztx=133) 2.37 M/ L 4.63-6.08 HEMOGLOBIN (BEAKER) (test tydi=497) 6.9 GM/DL 13.7-17.5 HEMATOCRIT (BEAKER) (test isix=795) 22.2 % 40.1-51.0 MEAN CORPUSCULAR VOLUME (BEAKER) (test pgjc=274) 93.7 fL 79.0-92.2 MEAN CORPUSCULAR HEMOGLOBIN (BEAKER) (test 29.1 pg 25.7-32.2 oaxu=714) MEAN CORPUSCULAR HEMOGLOBIN CONC (BEAKER) (test 31.1 GM/DL 32.3-36.5 rxvz=576) RED CELL DISTRIBUTION WIDTH (BEAKER) (test 15.6 % 11.6-14.4 rqap=808) PLATELET COUNT (BEAKER) (test qgdj=780) 214 K/CU MM 150-450 MEAN PLATELET VOLUME (BEAKER) (test kgqx=880) 10.9 fL 9.4-12.4 NUCLEATED RED BLOOD CELLS (BEAKER) (test 0 /100 WBC 0-0 limn=026) NEUTROPHILS RELATIVE PERCENT (BEAKER) (test 81 % kyxr=760) LYMPHOCYTES RELATIVE PERCENT (BEAKER) (test 9 % bcdx=518) MONOCYTES RELATIVE PERCENT (BEAKER) (test 8 % vzdp=394) EOSINOPHILS RELATIVE PERCENT (BEAKER) (test 1 % enav=311) BASOPHILS RELATIVE PERCENT (BEAKER) (test 0 % gnsz=462) NEUTROPHILS ABSOLUTE COUNT (BEAKER) (test 8.86 K/ L 1.78-5.38 vyqc=654) LYMPHOCYTES ABSOLUTE COUNT (BEAKER) (test 0.93 K/ L 1.32-3.57 aaoi=692) MONOCYTES ABSOLUTE COUNT (BEAKER) (test 0.86 K/ L 0.30-0.82 dbno=519) EOSINOPHILS ABSOLUTE COUNT (BEAKER) (test 0.11 K/ L 0.04-0.54 yfla=330) BASOPHILS ABSOLUTE COUNT (BEAKER) (test 0.02 K/ L 0.01-0.08 mawj=613) IMMATURE GRANULOCYTES-RELATIVE PERCENT (BEAKER) 2 % 0-1 (test fgwd=9185) POCT-GLUCOSE [id number] 21:59:00 Test Item Value Reference Range Comments POC-GLUCOSE METER (BEAKER) 199 mg/dL 70-110 TESTED AT [address] (test went=6520) [place] [address] POCT-GLUCOSE [id number] 17:41:00 Test Item Value Reference Range Comments POC-GLUCOSE METER (BEAKER) 117 mg/dL 70-110 TESTED AT [address] (test pmwl=2126) [place] [id number] POCT-GLUCOSE [id number] 12:26:00 Test Item Value Reference Range Comments POC-GLUCOSE METER (BEAKER) 171 mg/dL 70-110 TESTED AT [address] (test awwh=4133) [place] [address] BLOOD [id number] 12:01:00 Test Item Value Reference Range Comments CULTURE (BEAKER) (test hntn=6500) No growth in 5 days BLOOD [id number] 12:01:00 Test Item Value Reference Range Comments CULTURE (BEAKER) (test cqsd=3511) No growth in 5 days POCT-GLUCOSE [id number] 06:35:00 Test Item Value Reference Range Comments POC-GLUCOSE METER (BEAKER) 177 mg/dL 70-110 TESTED AT [address] (test hmzx=4208) [facility] [address] BASIC METABOLIC [id number] 03:30:00 Test Item Value Reference Range Comments SODIUM (BEAKER) (test 135 meq/L 136-145 owwu=558) POTASSIUM (BEAKER) (test 4.4 meq/L 3.5-5.1 ydya=747) CHLORIDE (BEAKER) (test 103 meq/L 98-107 hjnw=726) CO2 (BEAKER) (test 26 meq/L 22-29 besz=973) BLOOD UREA NITROGEN 37 mg/dL 7-21 (BEAKER) (test npcv=453) CREATININE (BEAKER) (test 1.33 mg/dL 0.57-1.25 gsdx=433) GLUCOSE RANDOM (BEAKER) 141 mg/dL 70-105 (test cxbg=591) CALCIUM (BEAKER) (test 8.2 mg/dL 8.4-10.2 fpmm=954) EGFR (BEAKER) (test mL/min/1.73 sq m INSUFFICIENT CLINICAL DATA goop=9657) TO CALCULATE ESTIMATED GFR. [id number] 03:27:00 Test Item Value Reference Range Comments MAGNESIUM (BEAKER) (test qmuh=355) 2.1 mg/dL 1.6-2.6 CBC W/PLT COUNT & AUTO [id number] 02:48:00 Test Item Value Reference Range Comments WHITE BLOOD CELL COUNT (BEAKER) (test fapk=159) 15.1 K/ L 3.5-10.5 RED BLOOD CELL COUNT (BEAKER) (test lpxh=789) 2.42 M/ L 4.63-6.08 HEMOGLOBIN (BEAKER) (test yfir=227) 7.1 GM/DL 13.7-17.5 HEMATOCRIT (BEAKER) (test kxoc=149) 22.4 % 40.1-51.0 MEAN CORPUSCULAR VOLUME (BEAKER) (test nctq=243) 92.6 fL 79.0-92.2 MEAN CORPUSCULAR HEMOGLOBIN (BEAKER) (test 29.3 pg 25.7-32.2 zlav=456) MEAN CORPUSCULAR HEMOGLOBIN CONC (BEAKER) (test 31.7 GM/DL 32.3-36.5 ofzz=089) RED CELL DISTRIBUTION WIDTH (BEAKER) (test 15.6 % 11.6-14.4 pmnb=766) PLATELET COUNT (BEAKER) (test maxo=815) 190 K/CU MM 150-450 MEAN PLATELET VOLUME (BEAKER) (test lihz=586) 10.0 fL 9.4-12.4 NUCLEATED RED BLOOD CELLS (BEAKER) (test 0 /100 WBC 0-0 crty=897) NEUTROPHILS RELATIVE PERCENT (BEAKER) (test 86 % eknl=962) LYMPHOCYTES RELATIVE PERCENT (BEAKER) (test 4 % guet=214) MONOCYTES RELATIVE PERCENT (BEAKER) (test 8 % dxar=892) EOSINOPHILS RELATIVE PERCENT (BEAKER) (test 1 % mlky=998) BASOPHILS RELATIVE PERCENT (BEAKER) (test 0 % ioez=233) NEUTROPHILS ABSOLUTE COUNT (BEAKER) (test 13.00 K/ L 1.78-5.38 cyno=220) LYMPHOCYTES ABSOLUTE COUNT (BEAKER) (test 0.66 K/ L 1.32-3.57 hukx=301) MONOCYTES ABSOLUTE COUNT (BEAKER) (test 1.20 K/ L 0.30-0.82 twzf=750) EOSINOPHILS ABSOLUTE COUNT (BEAKER) (test 0.07 K/ L 0.04-0.54 xtlo=829) BASOPHILS ABSOLUTE COUNT (BEAKER) (test 0.03 K/ L 0.01-0.08 wlof=502) IMMATURE GRANULOCYTES-RELATIVE PERCENT (BEAKER) 1 % 0-1 (test gktc=9061) POCT-GLUCOSE [id number] 01:00:00 Test Item Value Reference Range Comments POC-GLUCOSE METER (BEAKER) 167 mg/dL 70-110 TESTED AT [place] [id number] [facility] (test qabk=7109) [facility] [address] POCT-GLUCOSE [id number] 21:31:00 Test Item Value Reference Range Comments POC-GLUCOSE METER (BEAKER) 201 mg/dL 70-110 TESTED AT [address] (test lqpg=7588) [place] [address] RAD, CHEST, PA OR AP, 1 [id number] 20:12:00VAT/Infusion Therapy Nurse to Call Radiology Department when patient is readyReason for exam:->SPPICC line insertion/verify placementShould this be performed at the bedside?-> YesAddendum BeginsREPORT STATUS:A Addendum: An additional image was acquired. Tip of the right upper extremity central line projects over the superior vena cava. Signed: Mickey Espinal MDReport Verified Date/Time: 12/06/2018 20:12:07 Reading Location: [address] Reading RoomAddendum EndsAddendum BeginsREPORT STATUS:A Addendum: Examination was repeated. Tip of the right upper extremity central line remains indistinct. Signed: Mickey Espinal Verified Date/Time: 03/2019 20:05:52 Reading Location: [address] Reading RoomAddendum EndsFINAL REPORT EXAMINATION: AP [...] Espinal Verified Date/Time: 12/06/2018 19:07:07 Reading Location: [address] Reading Room [id number] 18:52:00 Test Item Value Reference Range Comments PROCALCITONIN (BEAKER) (test fber=6654) 32.61 ng/mL <0.05 SEPSIS RISK (ng/mL)Low: 0.05-0.50Intermediate: 0.51-2.00High: & gt;=2.01POCT-GLUCOSE [id number] 18:02:00 Test Item Value Reference Range Comments POC-GLUCOSE METER (BEAKER) 190 mg/dL 70-[address] [facility] [address] [place] [address] (test frmm=1264) [facility] [address] CBC W/PLT COUNT & AUTO [id number] 17:53:00 Test Item Value Reference Range Comments WHITE BLOOD CELL COUNT (BEAKER) (test wmgc=738) 19.3 K/ L 3.5-10.5 RED BLOOD CELL COUNT (BEAKER) (test brwn=361) 2.44 M/ L 4.63-6.08 HEMOGLOBIN (BEAKER) (test uxfa=473) 7.2 GM/DL 13.7-17.5 HEMATOCRIT (BEAKER) (test aabv=603) 22.8 % 40.1-51.0 MEAN CORPUSCULAR VOLUME (BEAKER) (test xupy=471) 93.4 fL 79.0-92.2 MEAN CORPUSCULAR HEMOGLOBIN (BEAKER) (test 29.5 pg 25.7-32.2 chwt=177) MEAN CORPUSCULAR HEMOGLOBIN CONC (BEAKER) (test 31.6 GM/DL 32.3-36.5 eqfx=788) RED CELL DISTRIBUTION WIDTH (BEAKER) (test 15.9 % 11.6-14.4 jsan=033) PLATELET COUNT (BEAKER) (test umdt=096) 208 K/CU MM 150-450 MEAN PLATELET VOLUME (BEAKER) (test ccwk=553) 10.7 fL 9.4-12.4 NUCLEATED RED BLOOD CELLS (BEAKER) (test 0 /100 WBC 0-0 nlcc=042) (CELLAVISION MANUAL DIFF)2018-12-06 17:53:00 Test Item Value Reference Range Comments NEUTROPHILS - REL (CELLAVISION)(BEAKER) (test 89 % cgak=9359) LYMPHOCYTES - REL (CELLAVISION)(BEAKER) (test 2 % xcmi=4828) MONOCYTES - REL (CELLAVISION)(BEAKER) (test 2 % dmgj=4209) BANDS - REL (CELLAVISION)(BEAKER) (test 7 % 0-10 tvpy=3028) NEUTROPHILS - ABS (CELLAVISION)(BEAKER) (test 17.18 K/ul 1.78-5.38 mqgt=8500) LYMPHOCYTES - ABS (CELLAVISION)(BEAKER) (test 0.39 K/ul 1.32-3.57 gtrd=4386) MONOCYTES - ABS (CELLAVISION)(BEAKER) (test 0.39 K/uL 0.30-0.82 uouk=7619) BANDS - ABS (CELLAVISION)(BEAKER) (test 1.35 K/uL 0.00-0.80 ttkf=0098) TOTAL COUNTED (BEAKER) (test vazf=7210) 100 SMUDGE CELLS (BEAKER) (test zolm=2326) Present GIANT PLATELETS (BEAKER) (test untu=280) Present POLYCHROMATOPHILLIC RBCS(BEAKER) (test xjvj=829) 3+ many HYPOCHROMIA (BEAKER) (test sudq=805) 1+ few ANISOCYTOSIS (BEAKER) (test teso=484) 1+ few MICROCYTES (BEAKER) (test fmqe=498) 1+ few POIKILOCYTES (BEAKER) (test ygtn=071) 1+ few PLATELET CONCENTRATION (CELLAVISION)(BEAKER) Adequate (test tgdi=1134) Received comment: User comments: Slide comments:COMPREHENSIVE METABOLIC [id number] 17:41:00 Test Item Value Reference Range Comments TOTAL PROTEIN (BEAKER) 5.5 gm/dL 6.0-8.3 (test ejhh=590) ALBUMIN (BEAKER) (test 2.5 g/dL 3.5-5.0 frjh=2365) ALKALINE PHOSPHATASE 172 U/L 40-150 (BEAKER) (test lpai=899) BILIRUBIN TOTAL (BEAKER) 0.2 mg/dL 0.2-1.2 (test kbhw=389) SODIUM (BEAKER) (test 134 meq/L 136-145 kxgc=398) POTASSIUM (BEAKER) (test 4.8 meq/L 3.5-5.1 vstw=569) CHLORIDE (BEAKER) (test 101 meq/L 98-107 xhxb=457) CO2 (BEAKER) (test 26 meq/L 22-29 nwom=153) BLOOD UREA NITROGEN 39 mg/dL 7-21 (BEAKER) (test kpnw=231) CREATININE (BEAKER) (test 1.55 mg/dL 0.57-1.25 vvzg=998) GLUCOSE RANDOM (BEAKER) 175 mg/dL 70-105 (test jykg=468) CALCIUM (BEAKER) (test 8.3 mg/dL 8.4-10.2 ozrx=397) AST (SGOT) (BEAKER) (test 23 U/L 5-34 fylw=896) ALT (SGPT) (BEAKER) (test 18 U/L 6-55 fiiu=439) EGFR (BEAKER) (test mL/min/1.73 sq m INSUFFICIENT CLINICAL DATA ynes=8818) TO CALCULATE ESTIMATED GFR. TROPONIN [id number] 17:41:00 Test Item Value Reference Range Comments TROPONIN I (CLARA) (test jeww=592) 0.02 ng/mL 0.00-0.03 Troponin I (TnI) levels [...] acidosis, acute neurological disease, and persistent tachyarrhythmia.PROTHROMBIN [id number] 17:35:00 Test Item Value Reference Range Comments PROTIME (CLARA) (test eqxf=754) 16.0 seconds 11.7-14.7 INR (CLARA) (test fnez=006) 1.4 <=5.9 RECOMMENDED COUMADIN/WARFARIN INR THERAPY RANGESSTANDARD DOSE: 2.0 - 3.0 Includes: PROPHYLAXIS forvenous thrombosis, systemic embolization; TREATMENT for venous thrombosis and/or pulmonary embolus.HIGH RISK: Target INR is 2.5-3.5 for patients with mechanical heart valves.LACTIC ACID, [id number] 17:28:00 Test Item Value Reference Range Comments LACTATE BLOOD VENOUS (2) (CLARA) (test 0.6 mmol/L 0.5-2.2 yzdi=0045) CT, [id number] 15:53:00FINAL REPORT CT abdomen and pelvis without [...] MDReport Verified Date/Time: 12/06/2018 15:53:40 Reading Location: [facility] Reading Room POCT-GLUCOSE [id number] 12:57:00 Test Item Value Reference Range Comments POC-GLUCOSE METER (BEAKER) 243 mg/dL 70-110 TESTED AT [address] (test zcpy=1772) [facility] [address] HEMOGLOBIN AND [id number] 23:31:00 Test Item Value Reference Range Comments HEMOGLOBIN (BEAKER) (test zadw=872) 7.2 GM/DL 13.7-17.5 HEMATOCRIT (BEAKER) (test vmpj=234) 23.0 % 40.1-51.0 POCT-GLUCOSE [id number] 22:56:00 Test Item Value Reference Range Comments POC-GLUCOSE METER (BEAKER) 90 mg/dL 70-110 TESTED AT [address] (test kdsz=3736) [facility] [address] LACTIC ACID, [id number] 22:19:00 Test Item Value Reference Range Comments LACTATE BLOOD ARTERIAL (2) (BEAKER) (test 2.1 mmol/L 0.5-2.2 rycy=9739) POCT-GLUCOSE [id number] 22:07:00 Test Item Value Reference Range Comments POC-GLUCOSE METER (BEAKER) 91 mg/dL 70-110 TESTED AT [address] (test urct=7837) [facility] [address] BLOOD GAS, [id number] 22:02:00 Test Item Value Reference Range Comments PH ARTERIAL (BEAKER) (test bjux=661) 7.41 7.35-7.45 PCO2 ARTERIAL (BEAKER) (test algz=657) 44 mmHg 35-45 PO2 ARTERIAL (BEAKER) (test reqo=926) 187 mmHg 80-90 O2 SATURATION ARTERIAL (BEAKER) (test nxxj=950) 99.3 % 96.0-97.0 HCO3 ARTERIAL (BEAKER) (test oqbt=644) 27 mmol/L 21-29 BASE EXCESS ARTERIAL (BEAKER) (test xslc=831) 2.1 mmol/L -2.0-3.0 PATIENT TEMPERATURE (BEAKER) (test ibpg=3126) 37.0 C FIO2 (BEAKER) (test vmmq=8396) 60.0 % URINALYSIS W/ REFLEX URINE [id number] 21:47:00 Test Item Value Reference Range Comments COLOR (BEAKER) (test ygya=638) Yellow CLARITY (BEAKER) (test xneb=094) Cloudy SPECIFIC GRAVITY UA (BEAKER) (test dlpm=409) 1.016 1.001-1.035 PH UA (BEAKER) (test apdp=076) 5.5 5.0-8.0 PROTEIN UA (BEAKER) (test aehi=693) 100 mg/dL Negative GLUCOSE UA (BEAKER) (test rwjn=221) Negative Negative KETONES UA (BEAKER) (test kihf=655) Trace Negative BILIRUBIN UA (BEAKER) (test ljyn=345) Negative Negative BLOOD UA (BEAKER) (test rnxv=498) Trace Negative NITRITE UA (BEAKER) (test chuz=411) Negative Negative LEUKOCYTE ESTERASE UA (BEAKER) (test blft=423) Small Negative UROBILINOGEN UA (BEAKER) (test faui=174) 0.2 mg/dL 0.2-1.0 RBC UA (BEAKER) (test yetz=810) 0 /HPF WBC UA (BEAKER) (test cqqg=832) 4 /HPF MUCUS (BEAKER) (test zhpm=4853) Rare SOURCE(BEAKER) (test uenx=7995) POCT-GLUCOSE [id number] 20:53:00 Test Item Value Reference Range Comments POC-GLUCOSE METER (BEAKER) 65 mg/dL 70-110 TESTED AT [address] (test lmln=3765) [facility] [address] POCT-GLUCOSE [id number] 20:27:00 Test Item Value Reference Range Comments POC-GLUCOSE METER (BEAKER) 97 mg/dL 70-110 TESTED AT [address] (test azod=2742) [facility] [address] POCT-GLUCOSE [id number] 20:11:00 Test Item Value Reference Range Comments POC-GLUCOSE METER (BEAKER) 32 mg/dL 70-[address] [facility] [address] (test qwxq=9717) [facility] [address] RAD, CHEST, 1 VIEW, NON [id number] 19:53:00Reason for exam:-> intubationShould this be performed [...] or acute bony abnormality. Signed: Sergey Sommer [place] Verified Date/Time: 12/05/2018 19:53:20 Electronically signed by: SERGEY SOMMER M.D. on 02/2019 07:53 PMLACTIC ACID, [id number] 19:33:00 Test Item Value Reference Range Comments LACTATE BLOOD ARTERIAL (2) (BEAKER) (test 2.2 mmol/L 0.5-2.2 blit=1447) CBC W/PLT COUNT & AUTO [id number] 18:43:00 Test Item Value Reference Range Comments WHITE BLOOD CELL COUNT (BEAKER) (test vmne=584) 4.8 K/ L 3.5-10.5 RED BLOOD CELL COUNT (BEAKER) (test cdmj=923) 3.05 M/ L 4.63-6.08 HEMOGLOBIN (BEAKER) (test ctmb=766) 9.0 GM/DL 13.7-17.5 HEMATOCRIT (BEAKER) (test pnea=951) 28.5 % 40.1-51.0 MEAN CORPUSCULAR VOLUME (BEAKER) (test qxiy=476) 93.4 fL 79.0-92.2 MEAN CORPUSCULAR HEMOGLOBIN (BEAKER) (test 29.5 pg 25.7-32.2 lzlu=421) MEAN CORPUSCULAR HEMOGLOBIN CONC (BEAKER) (test 31.6 GM/DL 32.3-36.5 nqzy=885) RED CELL DISTRIBUTION WIDTH (BEAKER) (test 15.9 % 11.6-14.4 bpxf=145) PLATELET COUNT (BEAKER) (test zvuw=230) 244 K/CU MM 150-450 MEAN PLATELET VOLUME (BEAKER) (test duco=150) 10.5 fL 9.4-12.4 NUCLEATED RED BLOOD CELLS (BEAKER) (test 1 /100 WBC 0-0 wmlb=126) (CELLAVISION MANUAL DIFF)2018-12-05 18:43:00 Test Item Value Reference Range Comments NEUTROPHILS - REL (CELLAVISION)(BEAKER) (test 77 % pimd=1369) LYMPHOCYTES - REL (CELLAVISION)(BEAKER) (test 4 % wgmn=0015) MYELOCYTES - REL (CELLAVISION)(BEAKER) (test 1 % 0-0 pxyo=7233) BANDS - REL (CELLAVISION)(BEAKER) (test 18 % 0-10 ucxc=9297) NEUTROPHILS - ABS (CELLAVISION)(BEAKER) (test 3.70 K/ul 1.78-5.38 jaoy=2899) LYMPHOCYTES - ABS (CELLAVISION)(BEAKER) (test 0.19 K/ul 1.32-3.57 uthb=4192) MYELOCYTES-ABS (CELLAVISION)(BEAKER) (test 0.05 K/uL 0.00-0.00 itse=1208) BANDS - ABS (CELLAVISION)(BEAKER) (test 0.86 K/uL 0.00-0.80 yyqi=6182) TOTAL COUNTED (BEAKER) (test woyc=9795) 100 MANUAL NRBC PER 100 CELLS (BEAKER) (test 3 /100 WBC 0-0 oozd=9707) WBC MORPHOLOGY (BEAKER) (test pikw=006) Normal GIANT PLATELETS (BEAKER) (test swnq=851) Present LARGE PLT(BEAKER) (test hpcj=7368) Present POLYCHROMATOPHILLIC RBCS(BEAKER) (test qifl=555) 1+ few ANISOCYTOSIS (BEAKER) (test muvw=811) 1+ few MICROCYTES (BEAKER) (test wxex=920) 1+ few MACROCYTES (BEAKER) (test njsj=399) 2+ moderate ARTIFACT (CELLAVISION)(BEAKER) (test dhvd=7142) Present PLATELET CONCENTRATION (CELLAVISION)(BEAKER) Adequate (test jpqp=0408) Received comment: User comments: Slide comments:POCT-GLUCOSE [id number] 18: 37:00 Test Item Value Reference Range Comments POC-GLUCOSE METER (BEAKER) 76 mg/dL 70-[address] [facility] [address] [facility] (test ejmo=8498) [facility] [address] B-TYPE NATRIURETIC FACTOR (BNP)2018-12-05 17:58:00 Test Item Value Reference Range Comments B-TYPE NATRIURETIC PEPTIDE (BEAKER) (test 278 pg/mL 0-100 ubhv=989) TROPONIN [id number] 17:58:00 Test Item Value Reference Range Comments TROPONIN I (BEAKER) (test jypj=581) 0.01 ng/mL 0.00-0.03 Troponin I (TnI) levels [...] acute neurological disease, and persistent tachyarrhythmia.BASIC METABOLIC [id number] 17:55:00 Test Item Value Reference Range Comments SODIUM (BEAKER) (test 138 meq/L 136-145 zsch=173) POTASSIUM (BEAKER) (test 3.6 meq/L 3.5-5.1 Specimen slightly mbqd=626) hemolyzed CHLORIDE (BEAKER) (test 102 meq/L 98-107 kkxl=756) CO2 (BEAKER) (test 27 meq/L 22-29 dcgd=039) BLOOD UREA NITROGEN 40 mg/dL 7-21 (BEAKER) (test avkf=970) CREATININE (BEAKER) (test 1.41 mg/dL 0.57-1.25 Specimen slightly zmwv=326) hemolyzed GLUCOSE RANDOM (BEAKER) 55 mg/dL 70-105 (test daxg=554) CALCIUM (BEAKER) (test 8.3 mg/dL 8.4-10.2 utan=993) EGFR (BEAKER) (test mL/min/1.73 sq m INSUFFICIENT CLINICAL DATA bfug=0189) TO CALCULATE ESTIMATED GFR. [id number] 17:52:00 Test Item Value Reference Range Comments MAGNESIUM (BEAKER) (test 1.3 mg/dL 1.6-2.6 Specimen slightly hemolyzed cynt=706) [id number] 17:52:00 Test Item Value Reference Range Comments PHOSPHORUS (BEAKER) (test 3.0 mg/dL 2.3-4.7 Specimen slightly hemolyzed ivwr=162) CREATINE KINASE (CK)2018-12-05 17:52:00 Test Item Value Reference Range Comments CREATINE KINASE TOTAL (BEAKER) (test dyqm=736) 35 U/L 29-200 BLOOD GAS, [id number] 17:36:00 Test Item Value Reference Range Comments PH ARTERIAL (BEAKER) (test kvvr=797) 7.25 7.35-7.45 PCO2 ARTERIAL (BEAKER) (test vdnd=204) 70 mmHg 35-45 PO2 ARTERIAL (BEAKER) (test lbnc=510) 167 mmHg 80-90 O2 SATURATION ARTERIAL (BEAKER) (test lilv=756) 98.7 % 96.0-97.0 HCO3 ARTERIAL (BEAKER) (test avrd=042) 29 mmol/L 21-29 BASE EXCESS ARTERIAL (BEAKER) (test zzds=665) 1.4 mmol/L -2.0-3.0 PATIENT TEMPERATURE (BEAKER) (test mloh=0269) 39.3 C FIO2 (BEAKER) (test kdex=4055) 60.0 % POCT-GLUCOSE [id number] 17:30:00 Test Item Value Reference Range Comments POC-GLUCOSE METER (BEAKER) 54 mg/dL 70-110 Notified RYLEE OROPEZA/TESTED AT [facility] (test kxpv=6487) [address] [facility] [address] POCT-GLUCOSE [id number] 11:33:00 Test Item Value Reference Range Comments POC-GLUCOSE METER (BEAKER) 109 mg/dL 70-[address] [facility] [address] (test sjly=5945) [facility] [address] BASIC METABOLIC [id number] 06:25:00 Test Item Value Reference Range Comments SODIUM (BEAKER) (test 136 meq/L 136-145 kqpm=282) POTASSIUM (BEAKER) (test 3.8 meq/L 3.5-5.1 wltz=140) CHLORIDE (BEAKER) (test 103 meq/L 98-107 ufbo=105) CO2 (BEAKER) (test 26 meq/L 22-29 lvpr=283) BLOOD UREA NITROGEN 52 mg/dL 7-21 (BEAKER) (test vowr=316) CREATININE (BEAKER) (test 1.52 mg/dL 0.57-1.25 rgwq=704) GLUCOSE RANDOM (BEAKER) 94 mg/dL 70-105 (test ccnc=853) CALCIUM (BEAKER) (test 8.9 mg/dL 8.4-10.2 ihrt=775) EGFR (BEAKER) (test mL/min/1.73 sq m INSUFFICIENT CLINICAL DATA kvha=0320) TO CALCULATE ESTIMATED GFR. [id number] 06:24:00 Test Item Value Reference Range Comments MAGNESIUM (BEAKER) (test mxoo=740) 1.6 mg/dL 1.6-2.6 [id number] 06:18:00 Test Item Value Reference Range Comments FERRITIN (BEAKER) (test yuyl=165) 62 ng/mL 5-275 CBC W/PLT COUNT & AUTO [id number] 05:54:00 Test Item Value Reference Range Comments WHITE BLOOD CELL COUNT (BEAKER) (test bpcx=382) 7.9 K/ L 3.5-10.5 RED BLOOD CELL COUNT (BEAKER) (test ifts=220) 2.81 M/ L 4.63-6.08 HEMOGLOBIN (BEAKER) (test qyul=839) 8.3 GM/DL 13.7-17.5 HEMATOCRIT (BEAKER) (test uuwz=638) 26.6 % 40.1-51.0 MEAN CORPUSCULAR VOLUME (BEAKER) (test ltuw=780) 94.7 fL 79.0-92.2 MEAN CORPUSCULAR HEMOGLOBIN (BEAKER) (test 29.5 pg 25.7-32.2 tatn=851) MEAN CORPUSCULAR HEMOGLOBIN CONC (BEAKER) (test 31.2 GM/DL 32.3-36.5 pipx=971) RED CELL DISTRIBUTION WIDTH (BEAKER) (test 15.9 % 11.6-14.4 vvsj=429) PLATELET COUNT (BEAKER) (test ywbj=394) 215 K/CU MM 150-450 MEAN PLATELET VOLUME (BEAKER) (test vfoz=941) 10.7 fL 9.4-12.4 NUCLEATED RED BLOOD CELLS (BEAKER) (test 0 /100 WBC 0-0 zmau=720) NEUTROPHILS RELATIVE PERCENT (BEAKER) (test 78 % anmm=195) LYMPHOCYTES RELATIVE PERCENT (BEAKER) (test 9 % psjt=978) MONOCYTES RELATIVE PERCENT (BEAKER) (test 10 % bpor=341) EOSINOPHILS RELATIVE PERCENT (BEAKER) (test 2 % amrh=645) BASOPHILS RELATIVE PERCENT (BEAKER) (test 0 % duyz=717) NEUTROPHILS ABSOLUTE COUNT (BEAKER) (test 6.22 K/ L 1.78-5.38 aibm=796) LYMPHOCYTES ABSOLUTE COUNT (BEAKER) (test 0.74 K/ L 1.32-3.57 psfq=313) MONOCYTES ABSOLUTE COUNT (BEAKER) (test 0.76 K/ L 0.30-0.82 crra=407) EOSINOPHILS ABSOLUTE COUNT (BEAKER) (test 0.16 K/ L 0.04-0.54 krsd=176) BASOPHILS ABSOLUTE COUNT (BEAKER) (test 0.02 K/ L 0.01-0.08 ktyi=606) IMMATURE GRANULOCYTES-RELATIVE PERCENT (BEAKER) 0 % 0-1 (test gxcn=9362) POCT-GLUCOSE [id number] 21:45:00 Test Item Value Reference Range Comments POC-GLUCOSE METER (BEAKER) 126 mg/dL 70-110 TESTED AT [address] (test nwrv=6776) [place] [id number] POCT-GLUCOSE [id number] 17:33:00 Test Item Value Reference Range Comments POC-GLUCOSE METER (BEAKER) 130 mg/dL 70-110 TESTED AT [address] (test kzqg=5723) [facility] [address] POCT-GLUCOSE [id number] 11:52:00 Test Item Value Reference Range Comments POC-GLUCOSE METER (BEAKER) 194 mg/dL 70-110 TESTED AT [address] (test kkcm=5368) [place] [id number] CBC W/PLT COUNT & AUTO [id number] 09:12:00 Test Item Value Reference Range Comments WHITE BLOOD CELL COUNT (BEAKER) (test asdi=244) 5.8 K/ L 3.5-10.5 RED BLOOD CELL COUNT (BEAKER) (test cbel=801) 2.56 M/ L 4.63-6.08 HEMOGLOBIN (BEAKER) (test jjbc=138) 7.5 GM/DL 13.7-17.5 HEMATOCRIT (BEAKER) (test jskv=783) 24.0 % 40.1-51.0 MEAN CORPUSCULAR VOLUME (BEAKER) (test qpvo=395) 93.8 fL 79.0-92.2 MEAN CORPUSCULAR HEMOGLOBIN (BEAKER) (test 29.3 pg 25.7-32.2 jpgt=404) MEAN CORPUSCULAR HEMOGLOBIN CONC (BEAKER) (test 31.3 GM/DL 32.3-36.5 sqsh=780) RED CELL DISTRIBUTION WIDTH (BEAKER) (test 16.2 % 11.6-14.4 cjok=135) PLATELET COUNT (BEAKER) (test jmkv=397) 164 K/CU MM 150-450 MEAN PLATELET VOLUME (BEAKER) (test dzll=470) 10.1 fL 9.4-12.4 NUCLEATED RED BLOOD CELLS (BEAKER) (test 0 /100 WBC 0-0 yzpi=135) (CELLAVISION MANUAL DIFF)2018-12-04 09:12:00 Test Item Value Reference Range Comments NEUTROPHILS - REL (CELLAVISION)(BEAKER) (test 70 % wujt=7836) LYMPHOCYTES - REL (CELLAVISION)(BEAKER) (test 16 % ewzy=3642) MONOCYTES - REL (CELLAVISION)(BEAKER) (test 8 % wqfa=9409) EOSINOPHILS - REL (CELLAVISION)(BEAKER) (test 3 % ltjl=7587) BASOPHILS - REL (CELLAVISION)(BEAKER) (test 1 % yfqu=2851) MYELOCYTES - REL (CELLAVISION)(BEAKER) (test 1 % 0-0 fmsa=8647) ATYPICAL LYMPHOCYTES - REL (CELLAVISION)(BEAKER) 1 % 0-0 (test vinf=9409) NEUTROPHILS - ABS (CELLAVISION)(BEAKER) (test 4.06 K/ul 1.78-5.38 wvoi=1495) LYMPHOCYTES - ABS (CELLAVISION)(BEAKER) (test 0.93 K/ul 1.32-3.57 vpss=3671) MONOCYTES - ABS (CELLAVISION)(BEAKER) (test 0.46 K/uL 0.30-0.82 rpob=8054) EOSINOPHILS - ABS (CELLAVISION)(BEAKER) (test 0.17 K/uL 0.04-0.54 qrjw=6123) BASOPHILS - ABS (CELLAVISION)(BEAKER) (test 0.06 K/uL 0.01-0.08 bsoy=5531) MYELOCYTES-ABS (CELLAVISION)(BEAKER) (test 0.06 K/uL 0.00-0.00 dcbj=0249) ATYPICAL LYMPHOCYTES - ABS (CELLAVISION)(BEAKER) 0.06 K/uL 0.00-0.00 (test jwoj=5660) TOTAL COUNTED (BEAKER) (test ygoc=7407) 100 SMUDGE CELLS (BEAKER) (test oohx=3249) Present GIANT PLATELETS (BEAKER) (test ofhk=333) Present ANISOCYTOSIS (BEAKER) (test rebk=177) 1+ few PLATELET CONCENTRATION (CELLAVISION)(BEAKER) (test Adequate syla=0498) Received comment: User comments: Slide comments:POCT-GLUCOSE [id number] 07: 45:00 Test Item Value Reference Range Comments POC-GLUCOSE METER (BEAKER) 176 mg/dL 70-[address] [facility] [address] [facility] (test nwph=7877) [facility] [address] BASIC METABOLIC [id number] 04:24:00 Test Item Value Reference Range Comments SODIUM (BEAKER) (test 132 meq/L 136-145 movb=079) POTASSIUM (BEAKER) (test 4.2 meq/L 3.5-5.1 ctmy=370) CHLORIDE (BEAKER) (test 102 meq/L 98-107 siur=538) CO2 (BEAKER) (test 25 meq/L 22-29 ylvf=602) BLOOD UREA NITROGEN 70 mg/dL 7-21 (BEAKER) (test dwyu=502) CREATININE (BEAKER) (test 2.07 mg/dL 0.57-1.25 zlai=443) GLUCOSE RANDOM (BEAKER) 177 mg/dL 70-105 (test pdqz=903) CALCIUM (BEAKER) (test 8.4 mg/dL 8.4-10.2 zntw=755) EGFR (BEAKER) (test mL/min/1.73 sq m INSUFFICIENT CLINICAL DATA oaxx=4878) TO CALCULATE ESTIMATED GFR. [id number] 04:20:00 Test Item Value Reference Range Comments MAGNESIUM (BEAKER) (test swom=062) 2.0 mg/dL 1.6-2.6 POCT-GLUCOSE [id number] 00:32:00 Test Item Value Reference Range Comments POC-GLUCOSE METER (BEAKER) 257 mg/dL 70-110 TESTED AT [address] (test kqoq=5340) [place] [id number] POCT-GLUCOSE [id number] 22:27:00 Test Item Value Reference Range Comments POC-GLUCOSE METER (BEAKER) 262 mg/dL 70-110 TESTED AT [address] (test moge=0106) [place] [address] POCT-GLUCOSE [id number] 22:09:00 Test Item Value Reference Range Comments POC-GLUCOSE METER (BEAKER) 302 mg/dL 70-110 Notified RYLEE OROPEZA/TESTED AT [facility] (test twml=5735) [address] [place], [place] [id number] SPUTUM CULTURE + GRAM [id number] 15:41:00 Test Item Value Reference Range Comments CULTURE (BEAKER) (test Oropharyngeal contamination, lfnw=6212) specimen rejected. Recollect requested. GRAM STAIN RESULT (BEAKER) 2+ gram positive cocci in pairs (test qahu=9338) GRAM STAIN RESULT (BEAKER) 2+ gram negative rods (test kznw=91418) GRAM STAIN RESULT (BEAKER) 2+ White blood cells seen (test twlx=16035) GRAM STAIN RESULT (BEAKER) >25 epithelial cells (test eakz=298730) CT, [id number] 14:52:00FINAL REPORT CT abdomen and pelvis without [...] MDReport Verified Date/Time: 12/03/2018 14:52:09 Reading Location: [facility] Diagnostic Imaging Reading Room [place] [address] RESPIRATORY PANEL [id number] 14:33: 00 Test Item Value Reference Range Comments HUMAN METAPNEUMOVIRUS (BEAKER) (test Not detected Not detected, Equivocal fhrl=8549) RHINOVIRUS (BEAKER) (test oizt=8080) Not detected Not detected, Equivocal INFLUENZA A (BEAKER) (test jqqs=3400) Not detected Not detected, Equivocal INFLUENZA A (NO SUBTYPE) (test Not detected, Equivocal rybi=6532) INFLUENZA A SUBTYPE H1 (BEAKER) (test Not detected, Equivocal sfso=5261) INFLUENZA A SUBTYPE H3 (BEAKER) (test Not detected, Equivocal svou=3133) INFLUENZA A SUBTYPE H1-2009 (BEAKER) Not detected, Equivocal (test aabv=9260) INFLUENZA B (BEAKER) (test yegy=4229) Not detected Not detected, Equivocal RESPIRATORY SYNCYTIAL VIRUS (BEAKER) Not detected Not detected, Equivocal (test yeln=7846) PARAINFLUENZA VIRUS 1 (BEAKER) (test Not detected Not detected, Equivocal mbqq=1591) PARAINFLUENZA VIRUS 2 (BEAKER) (test Not detected Not detected, Equivocal dijw=2077) PARAINFLUENZA VIRUS 3 (BEAKER) (test Not detected Not detected, Equivocal mqqt=0742) PARAINFLUENZA VIRUS 4 (BEAKER) (test Not detected Not detected, Equivocal pdoh=4645) ADENOVIRUS (BEAKER) (test xuav=3440) Not detected Not detected, Equivocal CORONAVIRUS 229E (BEAKER) (test Not detected Not detected, Equivocal pthv=7093) CORONAVIRUS HKU1 (BEAKER) (test Not detected Not detected, Equivocal xfho=0989) CORONAVIRUS NL63 (BEAKER) (test Not detected Not detected, Equivocal uhlm=4072) CORONAVIRUS OC43 (BEAKER) (test Not detected Not detected, Equivocal elti=3050) BORDETELLA PERTUSSIS (BEAKER) (test Not detected Not detected, Equivocal gzyv=9217) CHLAMYDOPHILA PNEUMONIAE (BEAKER) (test Not detected Not detected, Equivocal knkw=8384) MYCOPLASMA PNEUMONIAE (BEAKER) (test Not detected Not detected, Equivocal gluf=5199) Other viruses and bacteria not targeted by this PCR panel cannot be excluded; therefore clinical correlation and follow up of serology, culture results, and other molecular studies is required. The results are not intended to be used as the sole means for clinical diagnosis or patient management decisions. This sample was tested at the [facility] Molecular Diagnostics Laboratory using the [employer] Respiratory Panel. It is FDA cleared and has been verified and approved by the [facility] Molecular Diagnostics Laboratory for clinical use on nasal swab specimens.OSMOLALITY, [id number] 11:50:00 Test Item Value Reference Range Comments OSMOLALITY URINE (BEAKER) (test dnwd=443) 440 mOsm/kg 40-1,400 POCT-GLUCOSE [id number] 11:41:00 Test Item Value Reference Range Comments POC-GLUCOSE METER (BEAKER) 249 mg/dL 70-[address] [facility] [address] (test fmjo=3736) [facility] [address] HEMOGLOBIN AND [id number] 10:05:00 Test Item Value Reference Range Comments HEMOGLOBIN (BEAKER) (test zyek=949) 7.6 GM/DL 13.7-17.5 HEMATOCRIT (BEAKER) (test cvjz=734) 24.2 % 40.1-51.0 POCT-GLUCOSE [id number] 06:35:00 Test Item Value Reference Range Comments POC-GLUCOSE METER (BEAKER) 192 mg/dL 70-[address] [facility] [address] (test akly=8901) [facility] [address] VITAMIN B12 AND [id number] 06:34:00 Test Item Value Reference Range Comments VITAMIN B12 (BEAKER) (test pnqa=554) 269 pg/mL 213-816 FOLATE (BEAKER) (test dmsl=522) 10.9 ng/mL >=7.0 IRON, TIBC, % SAT. (WITHOUT FERRITIN)2018-12-03 06:08:00 Test Item Value Reference Range Comments IRON (BEAKER) (test zcgc=702) 9.0 ug/dL 40.0-160.0 TOTAL IRON BINDING CAPACITY (BEAKER) (test 269 ug/dL 250-450 amrc=190) IRON % SATURATION (2) (BEAKER) (test hstf=1559) 3 % 20-55 VANCOMYCIN LEVEL, [id number] 04:52:00 Test Item Value Reference Range Comments VANCOMYCIN RANDOM (BEAKER) (test yoyt=737) 16.0 ug/mL Reference Range: No [id number] 04:42:00 Test Item Value Reference Range Comments MAGNESIUM (BEAKER) (test eznp=822) 2.3 mg/dL 1.6-2.6 BASIC METABOLIC [id number] 04:42:00 Test Item Value Reference Range Comments SODIUM (BEAKER) (test 137 meq/L 136-145 raer=778) POTASSIUM (BEAKER) (test 4.3 meq/L 3.5-5.1 xahu=599) CHLORIDE (BEAKER) (test 101 meq/L 98-107 satc=659) CO2 (BEAKER) (test 27 meq/L 22-29 dwsi=464) BLOOD UREA NITROGEN 87 mg/dL 7-21 (BEAKER) (test ypph=408) CREATININE (BEAKER) (test 2.32 mg/dL 0.57-1.25 xluq=747) GLUCOSE RANDOM (BEAKER) 167 mg/dL 70-105 (test uhls=992) CALCIUM (BEAKER) (test 8.5 mg/dL 8.4-10.2 aqeg=293) EGFR (BEAKER) (test mL/min/1.73 sq m INSUFFICIENT CLINICAL DATA qmxd=4445) TO CALCULATE ESTIMATED GFR. LACTIC ACID, [id number] 04:23:00 Test Item Value Reference Range Comments LACTATE BLOOD VENOUS (2) (BEAKER) (test 0.7 mmol/L 0.5-2.2 ysul=3975) CBC (HEMOGRAM ONLY)2018-12-03 04:11:00 Test Item Value Reference Range Comments WHITE BLOOD CELL COUNT (BEAKER) (test lwdo=265) 6.4 K/ L 3.5-10.5 RED BLOOD CELL COUNT (BEAKER) (test zmra=516) 2.56 M/ L 4.63-6.08 HEMOGLOBIN (BEAKER) (test rojj=723) 7.7 GM/DL 13.7-17.5 HEMATOCRIT (BEAKER) (test dogi=506) 23.8 % 40.1-51.0 MEAN CORPUSCULAR VOLUME (BEAKER) (test fujo=596) 93.0 fL 79.0-92.2 MEAN CORPUSCULAR HEMOGLOBIN (BEAKER) (test 30.1 pg 25.7-32.2 qoqp=538) MEAN CORPUSCULAR HEMOGLOBIN CONC (BEAKER) (test 32.4 GM/DL 32.3-36.5 wjdr=948) RED CELL DISTRIBUTION WIDTH (BEAKER) (test 16.4 % 11.6-14.4 zwlf=471) PLATELET COUNT (BEAKER) (test gwji=387) 182 K/CU MM 150-450 MEAN PLATELET VOLUME (BEAKER) (test zhju=582) 10.4 fL 9.4-12.4 NUCLEATED RED BLOOD CELLS (BEAKER) (test 0 /100 WBC 0-0 rcic=179) SPUTUM CULTURE + GRAM [id number] 03:30:00 Test Item Value Reference Range Comments CULTURE (BEAKER) (test Oropharyngeal contamination, qsnq=7309) specimen rejected. Recollect requested. GRAM STAIN RESULT (BEAKER) <1+ White blood cells seen (test rxuz=4148) GRAM STAIN RESULT (BEAKER) 5-10 epithelial cells (test zfsg=21451) GRAM STAIN RESULT (BEAKER) 4+ gram negative rods (test gsdt=65470) GRAM STAIN RESULT (BEAKER) 3+ gram positive rods (test ojfx=355556) GRAM STAIN RESULT (BEAKER) 1+ gram positive cocci in pairs (test tckp=217392) POCT-GLUCOSE [id number] 23:26:00 Test Item Value Reference Range Comments POC-GLUCOSE METER (BEAKER) 215 mg/dL 70-[address] [facility] [address] (test xnbq=1768) [facility] [address] HEMOGLOBIN AND [id number] 23:25:00 Test Item Value Reference Range Comments HEMOGLOBIN (BEAKER) (test tkrt=533) 7.5 GM/DL 13.7-17.5 HEMATOCRIT (BEAKER) (test wnoy=553) 23.3 % 40.1-51.0 U/S, ABDOMINAL, [id number] 18:44:00Please do kidney as well Reason for [...] right nephrolith. Kidneys otherwise unremarkable. Signed: Isatu Lozano MDReport Verified Date/Time: 12/02/2018 18:44:56 Reading Location: [facility] C013T Transitional Reading Room U/S , PELVIC, [id number] 18:44:00Please do kidney as well Reason for [...] right nephrolith. Kidneys otherwise unremarkable. Signed: Isatu Lozano MDReport Verified Date/Time: 12/02/2018 18:44:56 Reading Location: [address] Transitional Reading Room POCT-GLUCOSE [id number] 18:12:00 Test Item Value Reference Range Comments POC-GLUCOSE METER (BEAKER) 267 mg/dL 70-110 TESTED AT [address] (test aydc=5883) [facility] [address] POCT-GLUCOSE [id number] 17:34:00 Test Item Value Reference Range Comments POC-GLUCOSE METER (BEAKER) 257 mg/dL 70-[address] [facility] [address] [facility] (test mfli=4341) [facility] [address] BASIC METABOLIC [id number] 15:14:00 Test Item Value Reference Range Comments SODIUM (BEAKER) (test 130 meq/L 136-145 nmaw=143) POTASSIUM (BEAKER) (test 4.8 meq/L 3.5-5.1 kqrh=630) CHLORIDE (BEAKER) (test 96 meq/L 98-107 lqkl=473) CO2 (BEAKER) (test 28 meq/L 22-29 brul=979) BLOOD UREA NITROGEN 91 mg/dL 7-21 (BEAKER) (test ipqa=306) CREATININE (BEAKER) (test 2.13 mg/dL 0.57-1.25 tryg=767) GLUCOSE RANDOM (BEAKER) 262 mg/dL 70-105 (test cyhp=062) CALCIUM (BEAKER) (test 8.2 mg/dL 8.4-10.2 asbx=809) EGFR (BEAKER) (test mL/min/1.73 sq m INSUFFICIENT CLINICAL DATA mbke=6578) TO CALCULATE ESTIMATED GFR. LACTIC ACID, [id number] 14:55:00 Test Item Value Reference Range Comments LACTATE BLOOD VENOUS (2) 1.4 mmol/L 0.5-2.2 Specimen slightly hemolyzed (BEAKER) (test catt=6039) CBC (HEMOGRAM ONLY)2018-12-02 14:45:00 Test Item Value Reference Range Comments WHITE BLOOD CELL COUNT (BEAKER) (test dkgo=580) 10.9 K/ L 3.5-10.5 RED BLOOD CELL COUNT (BEAKER) (test psmv=354) 2.34 M/ L 4.63-6.08 HEMOGLOBIN (BEAKER) (test khmt=286) 7.0 GM/DL 13.7-17.5 HEMATOCRIT (BEAKER) (test qapa=790) 21.5 % 40.1-51.0 MEAN CORPUSCULAR VOLUME (BEAKER) (test roxc=653) 91.9 fL 79.0-92.2 MEAN CORPUSCULAR HEMOGLOBIN (BEAKER) (test 29.9 pg 25.7-32.2 osaz=268) MEAN CORPUSCULAR HEMOGLOBIN CONC (BEAKER) (test 32.6 GM/DL 32.3-36.5 ofnt=505) RED CELL DISTRIBUTION WIDTH (BEAKER) (test 17.0 % 11.6-14.4 taic=304) PLATELET COUNT (BEAKER) (test deom=354) 209 K/CU MM 150-450 MEAN PLATELET VOLUME (BEAKER) (test ldmn=690) 10.9 fL 9.4-12.4 NUCLEATED RED BLOOD CELLS (BEAKER) (test 0 /100 WBC 0-0 hieh=413) LACTIC ACID, [id number] 12:59:00 Test Item Value Reference Range Comments LACTATE BLOOD VENOUS (2) (BEAKER) (test 1.8 mmol/L 0.5-2.2 jizg=5438) LEGIONELLA ANTIGEN, [id number] 12:41:00 Test Item Value Reference Range Comments L. PNEUMOPHILA SEROGP 1 Negative - see Negative for L. UR AG (BEAKER) (test comment pneumophila serogroup 1 rqem=3243) antigen, suggesting no recent or current infection with this serogroup. Legionellosis cannot be ruled out since other serogroups and species may cause disease. STREP PNEUMONIAE [id number] 12:40:00 Test Item Value Reference Range Comments STREP PNEUMONIAE ANTIGEN Presumptive negative for Presumptive negative for (BEAKER) (test pneumococcal pneumonia - pneumococcal pneumonia - rwmo=5199) see comment see commen Presumptive negative for pneumococcal pneumonia, suggesting no current or recent pneumococcal infection. Infection due to S. pneumoniae cannot be ruled out since the antigen present in the sample may be below the detection limit of the test.RAPID INFLUENZA A&B [id number] 12:39:00 Test Item Value Reference Range Comments RAPID INFLUENZA A AG (BEAKER) (test Negative Negative, Inconclusive szlj=8537) RAPID INFLUENZA B AG (BEAKER) (test Negative Negative, Inconclusive vsqi=7730) CREATININE, RANDOM [id number] 12:38:00 Test Item Value Reference Range Comments CREATININE URINE (BEAKER) (test rmhk=430) 65.1 mg/dL Reference Range: No NormalsSODIUM, RANDOM [id number] 12:38:00 Test Item Value Reference Range Comments SODIUM URINE (BEAKER) (test uhgw=394) < meq/L Reference Range: No [id number] 10:58:00 Test Item Value Reference Range Comments PROCALCITONIN (BEAKER) (test uvtg=4713) 5.05 ng/mL <0.05 SEPSIS RISK (ng/mL)Low: 0.05-0.50Intermediate: 0.51-2.00High: & gt;=2.01B-TYPE NATRIURETIC FACTOR (BNP)2018-12-02 10:02:00 Test Item Value Reference Range Comments B-TYPE NATRIURETIC PEPTIDE (BEAKER) (test 201 pg/mL 0-100 znma=815) URINALYSIS W/ REFLEX URINE [id number] 10:00:00 Test Item Value Reference Range Comments COLOR (BEAKER) (test ubxq=044) Light Yellow CLARITY (BEAKER) (test mecg=556) Clear SPECIFIC GRAVITY UA (BEAKER) (test ccin=629) 1.024 1.001-1.035 PH UA (BEAKER) (test fnmh=048) 5.0 5.0-8.0 PROTEIN UA (BEAKER) (test tnrr=599) Negative Negative GLUCOSE UA (BEAKER) (test gauy=598) 100 mg/dL Negative KETONES UA (BEAKER) (test dabs=869) Negative Negative BILIRUBIN UA (BEAKER) (test vepi=816) Negative Negative BLOOD UA (BEAKER) (test efpw=833) Negative Negative NITRITE UA (BEAKER) (test ehng=395) Negative Negative LEUKOCYTE ESTERASE UA (BEAKER) (test exrj=272) Moderate Negative UROBILINOGEN UA (BEAKER) (test wsmp=637) 0.2 mg/dL 0.2-1.0 RBC UA (BEAKER) (test sgud=999) < /HPF WBC UA (BEAKER) (test drzb=613) 13 /HPF BACTERIA (BEAKER) (test kayx=099) Rare SQUAMOUS EPITHELIAL (BEAKER) (test wijw=543) 1 /HPF HYALINE CASTS (BEAKER) (test ccld=907) 2 /LPF CRYSTALS, URINE (BEAKER) (test casl=3199) Rare SOURCE(BEAKER) (test qtqe=8371) PROTHROMBIN [id number] 09:44:00 Test Item Value Reference Range Comments PROTIME (BEAKER) (test mwyd=242) 14.4 seconds 11.7-14.7 INR (BEAKER) (test bxzn=411) 1.2 <=5.9 RECOMMENDED COUMADIN/WARFARIN INR THERAPY RANGESSTANDARD DOSE: 2.0 - 3.0 Includes: PROPHYLAXIS forvenous thrombosis, systemic embolization; TREATMENT for venous thrombosis and/or pulmonary embolus.HIGH RISK: Target INR is 2.5-3.5 for patients with mechanical heart valves.[id number] 09:44:00 Test Item Value Reference Range Comments PARTIAL THROMBOPLASTIN TIME (BEAKER) (test 28.1 seconds 22.5-36.0 alhp=078) POCT-LACTIC ACID, [id number] 09:33:00 Test Item Value Reference Range Comments POC-LACTIC ACID, VENOUS 2.5 mmol/L 0.9-1.7 TESTED AT [address] [facility] (test wekk=1730) [place] [id number] POCT-BLOOD GASES, [id number] 09:33:00 Test Item Value Reference Range Comments TEMP, CELSIUS-POC (BEAKER) 37.0 (test dltc=9302) FIO2-POC (BEAKER) (test TESTED AT [address] hrqp=1193) [place] [id number] PH, ARTERIAL-POC (BEAKER) 7.357 7.350-7.450 (test xjlw=0673) PCO2, ARTERIAL-POC (BEAKER) 49.5 mm Hg 35.0-45.0 (test ubor=6997) PO2, ARTERIAL-POC (BEAKER) 28.0 mm Hg 80.0-90.0 (test znfj=8533) SO2, ARTERIAL-POC (BEAKER) 49.0 % 96.0-97.0 (test jjqt=9379) HCO3, ARTERIAL-POC (BEAKER) 27.7 meq/L 21.0-29.0 (test exbv=6923) BASE EXCESS, ARTERIAL-POC 2.0 meq/L -2.0-3.0 (BEAKER) (test newb=4625) [id number] 09:33:00 Test Item Value Reference Range Comments POC-SODIUM (BEAKER) (test 130 meq/L 135-148 TESTED AT [address] ydhl=5555) [place] [id number] 09:33:00 Test Item Value Reference Range Comments POC-POTASSIUM (BEAKER) (test 5.4 meq/L 3.6-5.5 TESTED AT [address] xgct=3706) [place] [id number] 09:33:00 Test Item Value Reference Range Comments POC-GLUCOSE (BEAKER) (test 413 mg/dL 70-110 TESTED AT [address] qgjo=8821) [place] [address] POCT-CALCIUM [id number] 09:33:00 Test Item Value Reference Range Comments POC-CALCIUM IONIZED (BEAKER) 1.11 mmol/L 1.12-1.27 TESTED AT [address] (test eifr=3316) [place] [address] [id number] 09:33:00 Test Item Value Reference Range Comments POC-HEMATOCRIT (BEAKER) (test 23 % 40-50 TESTED AT [address] gatt=0420) [place] [address] [id number] 09:33:00 Test Item Value Reference Range Comments POC-HEMOGLOBIN (BEAKER) 7.8 g/dL 13.0-16.8 TESTED AT [address] (test zsdg=8505) [place] [address]TESTED AT [place] [address] CBC (HEMOGRAM ONLY)2018-12-02 09:32:00 Test Item Value Reference Range Comments WHITE BLOOD CELL COUNT (BEAKER) (test xxsn=430) 16.6 K/ L 3.5-10.5 RED BLOOD CELL COUNT (BEAKER) (test uqzn=386) 2.67 M/ L 4.63-6.08 HEMOGLOBIN (BEAKER) (test yvzx=331) 7.8 GM/DL 13.7-17.5 HEMATOCRIT (BEAKER) (test fsrw=775) 24.7 % 40.1-51.0 MEAN CORPUSCULAR VOLUME (BEAKER) (test kmls=708) 92.5 fL 79.0-92.2 MEAN CORPUSCULAR HEMOGLOBIN (BEAKER) (test 29.2 pg 25.7-32.2 bxpv=482) MEAN CORPUSCULAR HEMOGLOBIN CONC (BEAKER) (test 31.6 GM/DL 32.3-36.5 pncy=523) RED CELL DISTRIBUTION WIDTH (BEAKER) (test 16.7 % 11.6-14.4 kgab=507) PLATELET COUNT (BEAKER) (test gabe=228) 257 K/CU MM 150-450 MEAN PLATELET VOLUME (BEAKER) (test qten=433) 11.1 fL 9.4-12.4 NUCLEATED RED BLOOD CELLS (BEAKER) (test 0 /100 WBC 0-0 nriy=634) RAD, CHEST, 1 VIEW, NON [id number] 08:46:00Reason for exam:->chf, leukocytosisShould this be performed at the bedside?->YesFINAL REPORT INDICATION: chf, leukocytosis COMPARISON: None TECHNIQUE : Singlefrontal view of the chest. FINDINGS: Lungs and pleura: Clear lungs. No effusion.Heart and mediastinum: Normal heart size. Unremarkable mediastinal contours.Osseous structures: No acute abnormality.Other: None. IMPRESSION: No acute intrathoracic abnormality. Signed: Colby Avila Verified Date/ Time: 12/02/2018 08:46:49 Reading Location: [address] Neuro Reading Room POCT-GLUCOSE [id number] 07:49:00 Test Item Value Reference Range Comments POC-GLUCOSE METER (BEAKER) 411 mg/dL 70-110 TESTED AT [address] (test bchw=0199) [facility] [address] [id number] 01:42:00 Test Item Value Reference Range Comments MAGNESIUM (BEAKER) (test jghj=298) 2.4 mg/dL 1.6-2.6 BASIC METABOLIC [id number] 01:42:00 Test Item Value Reference Range Comments SODIUM (BEAKER) (test 134 meq/L 136-145 xomf=863) POTASSIUM (BEAKER) (test 4.3 meq/L 3.5-5.1 ouee=217) CHLORIDE (BEAKER) (test 96 meq/L 98-107 cquy=742) CO2 (BEAKER) (test 25 meq/L 22-29 aohs=886) BLOOD UREA NITROGEN 85 mg/dL 7-21 (BEAKER) (test frww=942) CREATININE (BEAKER) (test 2.05 mg/dL 0.57-1.25 nomg=896) GLUCOSE RANDOM (BEAKER) 395 mg/dL 70-105 (test atml=024) CALCIUM (BEAKER) (test 8.4 mg/dL 8.4-10.2 undn=492) EGFR (BEAKER) (test mL/min/1.73 sq m INSUFFICIENT CLINICAL DATA oejr=5733) TO CALCULATE ESTIMATED GFR. CBC (HEMOGRAM ONLY)2018-12-02 01:40:00 Test Item Value Reference Range Comments WHITE BLOOD CELL COUNT (BEAKER) (test laep=728) 19.0 K/ L 3.5-10.5 RED BLOOD CELL COUNT (BEAKER) (test bnxp=745) 2.42 M/ L 4.63-6.08 HEMOGLOBIN (BEAKER) (test mghx=365) 7.3 GM/DL 13.7-17.5 HEMATOCRIT (BEAKER) (test gjow=177) 22.3 % 40.1-51.0 MEAN CORPUSCULAR VOLUME (BEAKER) (test ovxr=018) 92.1 fL 79.0-92.2 MEAN CORPUSCULAR HEMOGLOBIN (BEAKER) (test 30.2 pg 25.7-32.2 ztxt=386) MEAN CORPUSCULAR HEMOGLOBIN CONC (BEAKER) (test 32.7 GM/DL 32.3-36.5 mcbk=452) RED CELL DISTRIBUTION WIDTH (BEAKER) (test 17.3 % 11.6-14.4 xywm=112) PLATELET COUNT (BEAKER) (test wpsl=638) 283 K/CU MM 150-450 MEAN PLATELET VOLUME (BEAKER) (test besn=834) 10.7 fL 9.4-12.4 NUCLEATED RED BLOOD CELLS (BEAKER) (test 0 /100 WBC 0-0 ffys=308) POCT-GLUCOSE [id number] 00:51:00 Test Item Value Reference Range Comments POC-GLUCOSE METER (BEAKER) 425 mg/dL 70-110 Notified RYLEE OROPEZA/TESTED AT [facility] (test elzd=0665) [address] [facility] [place] [address]
[2019-01-12] MEDS ORDERED: NA CHLORIDE 0.9% 1,000 ML ONE ×2 (16:42→17:53)
[2019-01-12 17:06] LABS: Absolute Lymphocytes (CBC) 1.4 K/uL (0.7-4.9); Absolute Neutrophil 13.9 K/uL (1.8-8.0); Basophils % 0.2 % (0-1.3); Eosinophils % 0.2 % (0-4.4); Hematocrit 26.1 % (39.6-49.0); Lymphocytes % 8.5 % (15.3-44.8); MPV 8.8 fL (7.6-11.3); Monocytes % 6.3 % (3.3-12.3); RBC Red Blood Cell Count 2.83 M/uL (4.33-5.43)
[2019-01-12 17:26] LABS: Albumin 2.9 g/dL (3.4-5.0); Bilirubin Direct 0.2 mg/dL (0-0.2); Bilirubin Total 0.4 mg/dL (0.2-1.0); Potassium 5.1 mmol/L (3.5-5.1); Protein, Total 6.5 g/dL (6.4-8.2)
[2019-01-12] MEDS ORDERED: PANTOPRAZOLE 40 MG INJ ONE ×3 (17:53→18:53)
[2019-01-12] MEDS ORDERED: OCTREOTIDE ACETATE 100 MCG/ML ONE (17:57)
--- NOTE | 2019-01-12 18:03 | ER ---
Nurse's Notes [facility] Name[facility] Jethro Burden Age: 73 yrs Sex: Male : 1945 Arrival Date: 01/12/2019 Time: 16:04 Bed 25 Private MD: Diagnosis: Gastrointestinal hemorrhage, unspecified Presentation: 01/12 16:05 Presenting complaint: EMS states: patient spit out blood and also melena since 6 am mg2 today. he has history of UPGI bleed or gastric ulcer. also complained of abdominal pain. Transition of care: patient was not received from another setting of care. Onset of symptoms was January 12, 2019 at 06:00. Risk Assessment: Do you want to hurt yourself or someone else? Patient reports no desire to harm self or others. Initial Sepsis Screen: Does the patient meet any 2 criteria? No. Patient's initial sepsis screen is negative. Does the patient have a suspected source of infection? No. Patient's initial sepsis screen is negative. Care prior to arrival: None. 16:05 Method Of Arrival: EMS: [facility] mg2 16:05 Acuity: TAN 3 mg2 Historical: - Allergies: 16:14 NKDA; mg2 - Home Meds: 16:14 albuterol sulfate 2.5 mg /3 mL (0.083 %) Inhl nebu 3 mL Q4H prn [Active]; apixaban 5 mg mg2 Oral 1 tab 2 times per day [Active]; aspirin 81 mg Oral TbEC 1 tab once daily [Active]; atorvastatin 80 mg Oral tab 0.5 tab once daily [Active]; budesonide 3 mg Oral CECX 3 caps once daily [Active]; budesonide-formoterol inhalation 2 puffs 2 times per day [Active]; docusate sodium 100 mg Oral cap 1 cap 2 times per day [Active]; ferrous gluconate 324 mg (36 mg iron) Oral tab twice a day [Active]; finasteride 5 mg Oral tab 1 tab once daily [Active]; furosemide 40 mg Oral tab 3 tabs in am and 2 tabs in pm [Active]; gabapentin 100 mg Oral cap 1 caps 3 times per day [Active]; insulin aspart subcutaneous 35 unit three times a day [Active]; insulin detemir subcutaneous 70 units in am and 45 units in pm [Active]; ipratropium bromide 0.02 % inhalation soln 2.5 mL every 6 hours [Active]; losartan 100 mg Oral tab 1 tab once daily [Active]; magnesium oxide 420 mg Oral tab daily [Active]; metoprolol tartrate 50 mg Oral tab 1 tab once daily [Active]; pantoprazole 40 mg Oral TbEC 1 tab once daily [Active]; potassium chloride 10 mEq Oral cpER 2 caps once daily [Active]; sotalol 120 mg Oral tab 1 tab 2 times per day [Active]; - PMHx: 16:14 Atrial Fib; CHF; chronic wounds; COPD; Crohn's; Depression; Diabetes - IDDM; mg2 Hyperlipidemia; Hypertension; prostate problems; - Immunization history:: Flu vaccine is up to date. - Social history:: Smoking status: Patient/guardian denies using tobacco, Patient/guardian denies using alcohol, street drugs, IV drugs. - Ebola Screening: : No symptoms or risks identified at this time. Screenin:21 Abuse screen: Denies threats or abuse. Denies injuries from another. Nutritional mg2 screening: No deficits noted. Tuberculosis screening: No symptoms or risk factors identified. Fall Risk IV access (20 points). Ambulatory Aid- None/Bed Rest/Nurse Assist (0 pts). Gait- Impaired (20 pts.). Assessment: 16:21 General: Appears in no apparent distress. comfortable, Behavior is calm, cooperative. mg2 Pain: Complains of pain in abdomen Pain does not radiate. Pain currently is 6 out of 10 on a pain scale. Quality of pain is described as aching, Pain began gradually, this 6 am. Neuro: Level of Consciousness is awake, alert, obeys commands, Oriented to person, place, time, situation. Cardiovascular: Capillary refill < 3 seconds Patient's skin is warm and dry. Respiratory: Airway is patent Respiratory effort is even, unlabored, Respiratory pattern is regular, symmetrical. GI: Reports lower abdominal pain, vomiting, since 6 am. : No signs and/or symptoms were reported regarding the genitourinary system. EENT: No signs and/or symptoms were reported regarding the EENT system. Derm: Skin is intact, is healthy with good turgor, Skin is pink, warm \T\ dry. normal. Musculoskeletal: Circulation, motion, and sensation intact. Capillary refill < 3 seconds. 17:45 Reassessment: patient sent to ct scan via stretcher with O2 ongoing. mg2 18:00 Reassessment: report given to Soco Escalera RN of [facility]. mg2 18:45 Reassessment: report given to Armando Perry, patient was conversant, coherent, with mg2 GCS 15/15. Vital Signs: 16:07 BP 95 / 41; Pulse 76; Resp 18; Pulse Ox 100% on 2 lpm NC; Weight 89.36 kg; Height 6 ft. mg2 0 in. (182.88 cm); Pain 6/10; 17:41 BP 116 / 57; Pulse 79; Resp 18; Temp 97.8(O); Pulse Ox 97% 2 lpm ; mg2 18:44 BP 99 / 66; Pulse 78; Resp 18; Temp 98; Pulse Ox 98% on 2 lpm NC; Pain 0/10; mg2 16:07 Body Mass Index 26.72 (89.36 kg, 182.88 cm) mg2 ED Course: 16:04 Patient arrived in ED. mg2 16:06 Triage completed. mg2 16:09 Jaime Reyes MD is Attending Physician. gs 16:10 Arm band placed on. mg2 16:21 Sesar Woodruff, RYLEE is Primary Nurse. mg2 16:22 Patient has correct armband on for positive identification. Placed in gown. Bed in low mg2 position. Side rails up X2. Door closed. Warm blanket given. 16:42 No provider procedures requiring assistance completed. Inserted saline lock: 20 gauge mg2 in left antecubital area, using aseptic technique. Blood collected. by BRIANNA Colindres Tech. 17:50 CT completed. Patient tolerated procedure well. Patient moved back from CT. mw3 17:54 CT Abd/Pelvis - Without Contrast In Process Unspecified. EDMS 18:44 Patient transferred, IV remains in place. mg2 18:44 Inserted saline lock: 20 gauge in left wrist, using aseptic technique. mg2 Administered Medications: 16:42 Drug: NS 0.9% 1000 ml Route: IV; Rate: 1 bolus; Site: left antecubital; mg2 18:47 Follow up: Response: No adverse reaction; IV Status: Completed infusion; IV Intake: mg2 1000ml 17:42 Drug: ProTONIX 40 mg Route: IVP; Site: left antecubital; mg2 18:25 Follow up: Response: No adverse reaction mg2 17:45 Drug: Octreotide 50 mcg Route: IV; Rate: 50 bolus; Site: left antecubital; mg2 18:25 Follow up: Response: No adverse reaction; IV Status: Completed infusion mg2 18:17 Drug: ProTONIX 40 mg Route: IVP; Site: left antecubital; mg2 18:46 Follow up: Response: No adverse reaction mg2 18:43 Drug: ProTONIX 8 mg/hr Route: IV; Rate: 25 ml/hr; Site: left antecubital; mg2 18:46 Follow up: Response: No adverse reaction; IV Status: Infusion continued upon transfer mg2 18:44 Drug: NS 0.9% 1000 ml Route: IV; Rate: 125 ml/hr; Site: left antecubital; mg2 18:46 Follow up: Response: No adverse reaction; IV Status: Infusion continued upon transfer mg2 Intake: 18:47 IV: 1000ml; Total: 1000ml. mg2 Outcome: 18:02 ER care complete, transfer ordered by . 18:45 Transferred by ground EMS to [facility], Transfer form completed. mg2 18:45 Condition: stable 18:45 Instructed on the need for transfer, Demonstrated understanding of instructions. 18:53 Patient left the ED. mg2 Signatures: Dispatcher [employer] EDMS Jaime Reyes MD MD Sesar Woodruff RN RN [facility] Mami Stoll mw3
--- NOTE | 2019-01-12 18:03 | EDPHYS ---
Physician Documentation [facility] Name: Jethro Burden Age: 73 yrs Sex: Male : 1945 Arrival Date: 01/12/2019 Time: 16:04 Bed 25 Private MD: ED Physician Jaime Reyes HPI: 01/12 17:53 This 73 yrs old Male presents to ER via EMS with unknown complaint. gs 17:53 The patient presents to the emergency department vomiting blood, a small amount, with gs rectal bleeding, melena. Onset: The symptoms/episode began/occurred today. Abdominal pain: located in the right upper quadrant, left upper quadrant, right lower quadrant and left lower quadrant. Associated signs and symptoms: Pertinent negatives: fever. Severity of symptoms: At their worst the symptoms were severe in the emergency department the symptoms are unchanged. The patient has experienced similar episodes in the past, a few times. Historical: - Allergies: 16:14 NKDA; mg2 - Home Meds: 16:14 albuterol sulfate 2.5 mg /3 mL (0.083 %) Inhl nebu 3 mL Q4H prn [Active]; apixaban 5 mg mg2 Oral 1 tab 2 times per day [Active]; aspirin 81 mg Oral TbEC 1 tab once daily [Active]; atorvastatin 80 mg Oral tab 0.5 tab once daily [Active]; budesonide 3 mg Oral CECX 3 caps once daily [Active]; budesonide-formoterol inhalation 2 puffs 2 times per day [Active]; docusate sodium 100 mg Oral cap 1 cap 2 times per day [Active]; ferrous gluconate 324 mg (36 mg iron) Oral tab twice a day [Active]; finasteride 5 mg Oral tab 1 tab once daily [Active]; furosemide 40 mg Oral tab 3 tabs in am and 2 tabs in pm [Active]; gabapentin 100 mg Oral cap 1 caps 3 times per day [Active]; insulin aspart subcutaneous 35 unit three times a day [Active]; insulin detemir subcutaneous 70 units in am and 45 units in pm [Active]; ipratropium bromide 0.02 % inhalation soln 2.5 mL every 6 hours [Active]; losartan 100 mg Oral tab 1 tab once daily [Active]; magnesium oxide 420 mg Oral tab daily [Active]; metoprolol tartrate 50 mg Oral tab 1 tab once daily [Active]; pantoprazole 40 mg Oral TbEC 1 tab once daily [Active]; potassium chloride 10 mEq Oral cpER 2 caps once daily [Active]; sotalol 120 mg Oral tab 1 tab 2 times per day [Active]; - PMHx: 16:14 Atrial Fib; CHF; chronic wounds; COPD; Crohn's; Depression; Diabetes - IDDM; mg2 Hyperlipidemia; Hypertension; prostate problems; - Immunization history:: Flu vaccine is up to date. - Social history:: Smoking status: Patient/guardian denies using tobacco, Patient/guardian denies using alcohol, street drugs, IV drugs. - Ebola Screening: : No symptoms or risks identified at this time. ROS: 17:53 All other systems are negative. gs Exam: 17:53 Head/Face: Normocephalic, atraumatic. Eyes: Pupils equal round and reactive to light, gs extra-ocular motions intact. Lids and lashes normal. Conjunctiva and sclera are non-icteric and not injected. Cornea within normal limits. Periorbital areas with no swelling, redness, or edema. ENT: Nares patent. No nasal discharge, no septal abnormalities noted. Tympanic membranes are normal and external auditory canals are clear. Oropharynx with no redness, swelling, or masses, exudates, or evidence of obstruction, uvula midline. Mucous membranes moist. Neck: Trachea midline, no thyromegaly or masses palpated, and no cervical lymphadenopathy. Supple, full range of motion without nuchal rigidity, or vertebral point tenderness. No Meningismus. Chest/axilla: Normal chest wall appearance and motion. Nontender with no deformity. No lesions are appreciated. Cardiovascular: Regular rate and rhythm with a normal S1 and S2. No gallops, murmurs, or rubs. Normal PMI, no JVD. No pulse deficits. Respiratory: Lungs have equal breath sounds bilaterally, clear to auscultation and percussion. No rales, rhonchi or wheezes noted. No increased work of breathing, no retractions or nasal flaring. 17:53 Back: No spinal tenderness. No costovertebral tenderness. Full range of motion. Skin: Warm, dry with normal turgor. Normal color with no rashes, no lesions, and no evidence of cellulitis. Neuro: Awake and alert, GCS 15, oriented to person, place, time, and situation. Cranial nerves II-XII grossly intact. Motor strength 5/5 in all extremities. Sensory grossly intact. Cerebellar exam normal. Normal gait. 17:53 Constitutional: The patient appears alert, awake. 17:53 Constitutional: The patient appears pale. 17:53 Abdomen/GI: Inspection: bruising, right lower quadrant and left lower quadrant, Palpation: mild abdominal tenderness, in all quadrants, rebound tenderness, is not appreciated, Rectal exam: Stool: guaiac positive, black. 17:53 Musculoskeletal/extremity: Exam is negative for acute changes. Vital Signs: 16:07 BP 95 / 41; Pulse 76; Resp 18; Pulse Ox 100% on 2 lpm NC; Weight 89.36 kg; Height 6 ft. mg2 0 in. (182.88 cm); Pain 6/10; 17:41 BP 116 / 57; Pulse 79; Resp 18; Temp 97.8(O); Pulse Ox 97% 2 lpm ; mg2 18:44 BP 99 / 66; Pulse 78; Resp 18; Temp 98; Pulse Ox 98% on 2 lpm NC; Pain 0/10; mg2 16:07 Body Mass Index 26.72 (89.36 kg, 182.88 cm) mg2 MDM: 16:22 Patient medically screened. gs 17:53 Differential diagnosis: gastritis, diverticulitis, hemorrhoids, hemorrhagic shock. Data gs reviewed: vital signs, nurses notes, old medical records, lab test result(s), EKG, radiologic studies. Counseling: I had a detailed discussion with the patient and/or guardian regarding: the historical points, exam findings, and any diagnostic results supporting the discharge/admit diagnosis, the need to transfer to another facility. Response to treatment: the patient's symptoms have mildly improved after treatment. 01/12 16:17 Order name: Basic Metabolic Panel mg2 01/12 16:17 Order name: CBC with Diff; Complete Time: 17:21 mg2 01/12 16:17 Order name: Creatinine for Radiology; Complete Time: 17:31 mg2 01/12 16:17 Order name: Hepatic Function; Complete Time: 17:36 mg2 01/12 16:17 Order name: Lipase; Complete Time: 17:36 mg2 01/12 16:19 Order name: Basic Metabolic Panel; Complete Time: 17:36 EDMS 01/12 16:24 Order name: Type And Screen 01/12 17:33 Order name: PT-INR 01/12 17:34 Order name: CT Abd/Pelvis - Without Contrast; Complete Time: 18:35 gs 01/12 18:15 Order name: Packed RBCs (Additional Unit) [facility] 01/12 16:17 Order name: IV Saline Lock; Complete Time: 16:40 mg2 01/12 16:17 Order name: Labs collected and sent; Complete Time: 16:40 mg2 Administered Medications: 16:42 Drug: NS 0.9% 1000 ml Route: IV; Rate: 1 bolus; Site: left antecubital; mg2 18:47 Follow up: Response: No adverse reaction; IV Status: Completed infusion; IV Intake: mg2 1000ml 17:42 Drug: ProTONIX 40 mg Route: IVP; Site: left antecubital; mg2 18:25 Follow up: Response: No adverse reaction mg2 17:45 Drug: Octreotide 50 mcg Route: IV; Rate: 50 bolus; Site: left antecubital; mg2 18:25 Follow up: Response: No adverse reaction; IV Status: Completed infusion mg2 18:17 Drug: ProTONIX 40 mg Route: IVP; Site: left antecubital; mg2 18:46 Follow up: Response: No adverse reaction mg2 18:43 Drug: ProTONIX 8 mg/hr Route: IV; Rate: 25 ml/hr; Site: left antecubital; mg2 18:46 Follow up: Response: No adverse reaction; IV Status: Infusion continued upon transfer mg2 18:44 Drug: NS 0.9% 1000 ml Route: IV; Rate: 125 ml/hr; Site: left antecubital; mg2 18:46 Follow up: Response: No adverse reaction; IV Status: Infusion continued upon transfer mg2 Disposition: 01/12/19 18:02 Transfer ordered to [facility]. Diagnosis is Gastrointestinal hemorrhage, unspecified. - Reason for transfer: Higher level of care. - Accepting physician is Omranian. - Condition is Stable. - Problem is new. - Symptoms have improved. Critical care time excluding procedures: 17:53 Critical care time: Bedside Care: 10 minutes, Consultation: 10 minutes, Family Intervention: 10 minutes. Total time: 30 minutes Signatures: Dispatcher [employer] BRIANNANH Jaime Reyes MD MD gs [place]ose, Michele, RN RN mg2 Corrections: (The following items were deleted from the chart) 18:53 18:02 01/12/2019 18:02 Transfer ordered to [facility]. Diagnosis is mg2 Gastrointestinal hemorrhage, unspecified. Reason for transfer: Higher level of care. Accepting physician is Omranian. Condition is Stable. Problem is new. Symptoms have improved. gs
--- NOTE | 2019-01-12 18:16 | RAD REPORT ---
EXAM DESCRIPTION: CT - Abdomen Pelvis Wo Contrast - 01/12/2019 5:52 pm CLINICAL HISTORY: Abdominal pain. ABD PAIN COMPARISON: [facility] Protocol dated 09/22/2018 TECHNIQUE: CT imaging of the abdomen and pelvis was performed without contrast. Solid organ, bowel a nd vascular assessment is limited due to lack of IV and oral contrast. All CT scans are performed using dose optimization technique as appropriate and may include automated exposure control or mA/KV adjustment according to patient size. FINDINGS: The lung bases are emphysematous but clear. The liver, spleen, pancreas, adrenal glands are within normal limits for a limited non-contrast exami nation.Punctate caliceal stones bilaterally without hydronephrosis. Benign cyst is present in the lef t renal cortex measuring 17 mm. No bowel obstruction, free air, free fluid or abscess. Aortic atherosclerosis. 7 mm appendicolith is seen at the base of the appendix. Sigmoid diverticulosis without diverticulitis. Small fat containing left hernia. Prominent lumbar degenerative changes. IMPRESSION: Punctate bilateral nephrolithiasis without hydronephrosis. Colonic diverticulosis without diverticulitis. A limited non-contrast examination was performed as detailed.
[2019-01-12 18:36] LABS: Protime INR 1.39
[2019-01-12] MEDS ORDERED: NA CHLORIDE 0.9% 0 ML ONE (18:53)
[2019-01-12] MEDS ORDERED: PANTOPRAZOLE INJ 80 MG in NA CHLORIDE 0.9% 250 ML IV ONE (19:00)
[2019-01-12] MEDS ORDERED: PANTOPRAZOLE INJ 80 MG in NA CHLORIDE 0.9% 250 ML IV SCH (19:00)
[2019-01-12 19:16] VITALS: BP 99/66; TEMP 98; O2SAT 98
== END 2019-01-12 18:53 | disposition short-term general hospital (02) ==
LOC: ER 16:01
DX: K92.2 Gastrointestinal hemorrhage, unspecified (principal); I48.91 Unspecified atrial fibrillation; I11.0 Hypertensive heart disease with heart failure; I50.9 Heart failure, unspecified; K50.90 Crohn's disease, unspecified, without complications; F32.9 Major depressive disorder, single episode, unspecified; E11.9 Type 2 diabetes mellitus without complications; E78.5 Hyperlipidemia, unspecified; J44.9 Chronic obstructive pulmonary disease, unspecified; Z79.82 Long term (current) use of aspirin; Z79.4 Long term (current) use of insulin
CPT/HCPCS: 96365; 96361; 85025; 80048; 36415; 86900; 86850; 85610; 86901; 80076; 83690; 74176; 96375; 99285; J2354; C9113 ×3; J7030 ×2

== ENCOUNTER 2019-02-06 12:14 | Emergency (ER) | payer OTHER ==
[2019-02-06] MEDS ORDERED: ETOMIDATE 20 MG/10 ML VIAL IV ONE (12:15)
[2019-02-06] MEDS ORDERED: VECURONIUM 10 MG/VIAL IV ONE (12:15)
[2019-02-06] MEDS ORDERED: WATER FOR INJ,STERILE 10 ML IV ONE (12:15)
[2019-02-06] MEDS ORDERED: SUCCINYLCHOLINE 20 MG/ML (10 ML) IV ONE (12:15)
--- OUTSIDE RECORDS SUMMARY | 2019-02-06 12:18 | XMS REPORT | Clinical Summary ---
:1945 Author Organization [facility] Address [address] [place] [address] Care Team Providers Name Role Phone Asked, [...] Not on file Results Not on fileafter 02/05/2018 Advance Directives Patient has advance care planning documents, and code status on file. For more information, please contact:Ari Hernandez[address] [place] [address] Code Status Date Activated Date Inactivated Comments Full Code 05/24/2016 9:28 PM 05/26/2016 4:41 PM Code Status decision reached by: Patient
--- OUTSIDE RECORDS SUMMARY | 2019-02-06 12:26 | XMS REPORT ---
:1945 [facility] Address [address] [place], [place] [address]syeda Boyer [address] [place] [id number] Care Team Providers Name Role Phone CHINTAN RAE Unavailable Unavailable ANILA LYNCH Unavailable Unavailable YOUNG ROBBINS Unavailable Unavailable Problems This patient has no known problems. Allergies, Adverse Reactions, Alerts This patient has no known allergies or adverse reactions. Medications This patient has no known medications. Results Test Description Test Time Test Comments Text Results Atomic Results Result Comments POCT-GLUCOSE METER 2019-01-25 12:35:00 Test Item Value Reference Range Comments POC-GLUCOSE METER (BEAKER) (test 167 mg/dL 70-110 TESTED AT [address] hrwj=3155) [facility] [address] POCT-GLUCOSE [id number] 08:12:00 Test Item Value Reference Range Comments POC-GLUCOSE METER (BEAKER) 157 mg/dL 70-110 TESTED AT [address] (test fsbe=2961) [facility] [address] [id number] 07:04:00 Test Item Value Reference Range Comments MAGNESIUM (BEAKER) (test huqa=330) 1.8 mg/dL 1.6-2.6 COMPREHENSIVE METABOLIC [id number] 07:04:00 Test Item Value Reference Range Comments TOTAL PROTEIN (BEAKER) 5.9 gm/dL 6.0-8.3 (test dgdt=003) ALBUMIN (BEAKER) (test 3.0 g/dL 3.5-5.0 czwc=8105) ALKALINE PHOSPHATASE 101 U/L 40-150 (BEAKER) (test jhqf=290) BILIRUBIN TOTAL (BEAKER) 0.3 mg/dL 0.2-1.2 (test wckp=914) SODIUM (BEAKER) (test 138 meq/L 136-145 cuxc=580) POTASSIUM (BEAKER) (test 3.9 meq/L 3.5-5.1 kyln=204) CHLORIDE (BEAKER) (test 104 meq/L 98-107 amcl=932) CO2 (BEAKER) (test 29 meq/L 22-29 xyha=531) BLOOD UREA NITROGEN 20 mg/dL 7-21 (BEAKER) (test riel=144) CREATININE (BEAKER) (test 0.94 mg/dL 0.57-1.25 owcq=696) GLUCOSE RANDOM (BEAKER) 183 mg/dL 70-105 (test wqqy=846) CALCIUM (BEAKER) (test 8.7 mg/dL 8.4-10.2 aiys=127) AST (SGOT) (BEAKER) (test 12 U/L 5-34 oleb=768) ALT (SGPT) (BEAKER) (test 13 U/L 6-55 becb=129) EGFR (BEAKER) (test 79 mL/min/1.73 sq m ESTIMATED GFR IS NOT pydt=2487) ACCURATE CREATININE CLEARANCE IN PREDICTING GLOMERULAR FILTRATION RATE. ESTIMATED GFR IS NOT APPLICABLE FOR DIALYSIS PATIENTS. CBC W/PLT COUNT & AUTO [id number] 06:30:00 Test Item Value Reference Range Comments WHITE BLOOD CELL COUNT (BEAKER) (test mjdz=294) 7.2 K/ L 3.5-10.5 RED BLOOD CELL COUNT (BEAKER) (test npau=344) 3.05 M/ L 4.63-6.08 HEMOGLOBIN (BEAKER) (test thiy=012) 8.9 GM/DL 13.7-17.5 HEMATOCRIT (BEAKER) (test twjd=260) 27.9 % 40.1-51.0 MEAN CORPUSCULAR VOLUME (BEAKER) (test srif=925) 91.5 fL 79.0-92.2 MEAN CORPUSCULAR HEMOGLOBIN (BEAKER) (test 29.2 pg 25.7-32.2 xgvb=386) MEAN CORPUSCULAR HEMOGLOBIN CONC (BEAKER) (test 31.9 GM/DL 32.3-36.5 hiun=205) RED CELL DISTRIBUTION WIDTH (BEAKER) (test 14.8 % 11.6-14.4 napd=409) PLATELET COUNT (BEAKER) (test ofhx=416) 223 K/CU MM 150-450 MEAN PLATELET VOLUME (BEAKER) (test wqwx=020) 10.4 fL 9.4-12.4 NUCLEATED RED BLOOD CELLS (BEAKER) (test 0 /100 WBC 0-0 idre=923) NEUTROPHILS RELATIVE PERCENT (BEAKER) (test 79 % dejv=366) LYMPHOCYTES RELATIVE PERCENT (BEAKER) (test 13 % iwss=431) MONOCYTES RELATIVE PERCENT (BEAKER) (test 7 % gzjw=143) EOSINOPHILS RELATIVE PERCENT (BEAKER) (test 1 % cxyh=276) BASOPHILS RELATIVE PERCENT (BEAKER) (test 0 % fhwf=401) NEUTROPHILS ABSOLUTE COUNT (BEAKER) (test 5.65 K/ L 1.78-5.38 srps=896) LYMPHOCYTES ABSOLUTE COUNT (BEAKER) (test 0.92 K/ L 1.32-3.57 pzjk=227) MONOCYTES ABSOLUTE COUNT (BEAKER) (test 0.47 K/ L 0.30-0.82 ylkv=083) EOSINOPHILS ABSOLUTE COUNT (BEAKER) (test 0.08 K/ L 0.04-0.54 ulbo=880) BASOPHILS ABSOLUTE COUNT (BEAKER) (test 0.02 K/ L 0.01-0.08 jxbr=863) IMMATURE GRANULOCYTES-RELATIVE PERCENT (BEAKER) 0 % 0-1 (test enqy=0957) POCT-GLUCOSE [id number] 22:15:00 Test Item Value Reference Range Comments POC-GLUCOSE METER (BEAKER) 186 mg/dL 70-110 TESTED AT [address] (test rmsk=2047) [place] [address] POCT-GLUCOSE [id number] 16:20:00 Test Item Value Reference Range Comments POC-GLUCOSE METER (BEAKER) 196 mg/dL 70-110 TESTED AT [address] (test zzvt=8523) [place] [address] POCT-GLUCOSE [id number] 11:59:00 Test Item Value Reference Range Comments POC-GLUCOSE METER (BEAKER) 104 mg/dL 70-110 TESTED AT [address] (test lfnj=4613) [place] [address] POCT-GLUCOSE [id number] 10:17:00 Test Item Value Reference Range Comments POC-GLUCOSE METER (BEAKER) 100 mg/dL 70-110 TESTED AT [address] (test lzpi=4577) [place] [address] POCT-GLUCOSE [id number] 08:06:00 Test Item Value Reference Range Comments POC-GLUCOSE METER (BEAKER) 83 mg/dL 70-110 TESTED AT [facility] [address] (test jvlf=0140) [facility] [address] [id number] 04:49:00 Test Item Value Reference Range Comments MAGNESIUM (BEAKER) (test fuwz=978) 1.8 mg/dL 1.6-2.6 COMPREHENSIVE METABOLIC [id number] 04:49:00 Test Item Value Reference Range Comments TOTAL PROTEIN (BEAKER) 6.0 gm/dL 6.0-8.3 (test qxct=375) ALBUMIN (BEAKER) (test 3.1 g/dL 3.5-5.0 hfwl=5241) ALKALINE PHOSPHATASE 101 U/L 40-150 (BEAKER) (test duun=777) BILIRUBIN TOTAL (BEAKER) 0.4 mg/dL 0.2-1.2 (test mqgm=401) SODIUM (BEAKER) (test 141 meq/L 136-145 taun=340) POTASSIUM (BEAKER) (test 4.1 meq/L 3.5-5.1 oajb=413) CHLORIDE (BEAKER) (test 106 meq/L 98-107 atmj=888) CO2 (BEAKER) (test 29 meq/L 22-29 rghc=511) BLOOD UREA NITROGEN 21 mg/dL 7-21 (BEAKER) (test aped=476) CREATININE (BEAKER) (test 0.83 mg/dL 0.57-1.25 fces=189) GLUCOSE RANDOM (BEAKER) 82 mg/dL 70-105 (test aqtq=668) CALCIUM (BEAKER) (test 8.8 mg/dL 8.4-10.2 lued=728) AST (SGOT) (BEAKER) (test 16 U/L 5-34 fylo=157) ALT (SGPT) (BEAKER) (test 13 U/L 6-55 qqwb=315) EGFR (BEAKER) (test 91 mL/min/1.73 sq m ESTIMATED GFR IS NOT poaf=5411) ACCURATE CREATININE CLEARANCE IN PREDICTING GLOMERULAR FILTRATION RATE. ESTIMATED GFR IS NOT APPLICABLE FOR DIALYSIS PATIENTS. CBC W/PLT COUNT & AUTO [id number] 04:12:00 Test Item Value Reference Range Comments WHITE BLOOD CELL COUNT (BEAKER) (test cqxr=207) 7.5 K/ L 3.5-10.5 RED BLOOD CELL COUNT (BEAKER) (test oxth=949) 2.71 M/ L 4.63-6.08 HEMOGLOBIN (BEAKER) (test mtky=650) 8.0 GM/DL 13.7-17.5 HEMATOCRIT (BEAKER) (test pqak=197) 25.3 % 40.1-51.0 MEAN CORPUSCULAR VOLUME (BEAKER) (test vcbt=451) 93.4 fL 79.0-92.2 MEAN CORPUSCULAR HEMOGLOBIN (BEAKER) (test 29.5 pg 25.7-32.2 kdnl=321) MEAN CORPUSCULAR HEMOGLOBIN CONC (BEAKER) (test 31.6 GM/DL 32.3-36.5 eaba=468) RED CELL DISTRIBUTION WIDTH (BEAKER) (test 15.1 % 11.6-14.4 mspc=485) PLATELET COUNT (BEAKER) (test jysq=566) 198 K/CU MM 150-450 MEAN PLATELET VOLUME (BEAKER) (test fxqo=195) 10.0 fL 9.4-12.4 NUCLEATED RED BLOOD CELLS (BEAKER) (test 0 /100 WBC 0-0 evom=840) NEUTROPHILS RELATIVE PERCENT (BEAKER) (test 82 % ninc=408) LYMPHOCYTES RELATIVE PERCENT (BEAKER) (test 11 % unto=621) MONOCYTES RELATIVE PERCENT (BEAKER) (test 5 % wzup=229) EOSINOPHILS RELATIVE PERCENT (BEAKER) (test 1 % gqdb=872) BASOPHILS RELATIVE PERCENT (BEAKER) (test 0 % wdan=536) NEUTROPHILS ABSOLUTE COUNT (BEAKER) (test 6.08 K/ L 1.78-5.38 dbzx=631) LYMPHOCYTES ABSOLUTE COUNT (BEAKER) (test 0.85 K/ L 1.32-3.57 lqmc=960) MONOCYTES ABSOLUTE COUNT (BEAKER) (test 0.38 K/ L 0.30-0.82 jwwq=694) EOSINOPHILS ABSOLUTE COUNT (BEAKER) (test 0.09 K/ L 0.04-0.54 nfdn=198) BASOPHILS ABSOLUTE COUNT (BEAKER) (test 0.03 K/ L 0.01-0.08 iiot=270) IMMATURE GRANULOCYTES-RELATIVE PERCENT (BEAKER) 0 % 0-1 (test hxjz=3800) RAD, CHEST, 1 VIEW, NON [id number] 19:10:00Post-intubationReason for exam:-& gt;intubationShould this be performed at the bedside?->YesFINAL REPORT Portable chest. CLINICAL HISTORY: intubation. COMPARISON STUDY: January 12, 2019. FINDINGS: The cardiac silhouette is unremarkable. The pulmonary parenchyma demonstrates mild interstitial markings with some focal scarring or atelectasis in the right midlung and left lung base. An endotracheal tube is in place, the tip approximately 6.2 cm above the gladis. No pneumothorax is seen. Degenerative changes are noted. IMPRESSION: Interval intubation. The right jugular lineis no longer seen. Opacities in the lungs which could be followed up. Signed: Hansel Olivier MDReport Verified Date/Time : 01/23/2019 19:10:56 Reading Location: [address] Consult Reading Room [id number] 18:39:00 Test Item Value Reference Range Comments PROTIME (BEAKER) (test gxkh=424) 15.4 seconds 11.9-14.2 INR (BEAKER) (test tkzh=090) 1.3 <=5.9 PARTIAL THROMBOPLASTIN TIME (BEAKER) (test > seconds 22.5-36.0 swsh=068) Effective 12/26/2018: PT Reference Range ChangeNew: 11.9-14.2 Previous: 11.7- 14.7RECOMMENDED COUMADIN/WARFARIN INR THERAPY RANGESSTANDARD DOSE: 2.0-3.0 Includes: PROPHYLAXIS for venous thrombosis, systemic embolization; TREATMENT for venous thrombosis and/or pulmonary embolus.HIGH RISK: Target INR is2.5-3.5 for patients wiht mechanical heart valves.[id number] 17:43:00 Test Item Value Reference Range Comments MAGNESIUM (BEAKER) (test 1.9 mg/dL 1.6-2.6 Specimen slightly hemolyzed bwsy=814) [id number] 17:43:00 Test Item Value Reference Range Comments PHOSPHORUS (BEAKER) (test 4.0 mg/dL 2.3-4.7 Specimen slightly hemolyzed fqqo=422) COMPREHENSIVE METABOLIC [id number] 17:43:00 Test Item Value Reference Range Comments TOTAL PROTEIN (BEAKER) 5.9 gm/dL 6.0-8.3 Specimen slightly (test uvqm=664) hemolyzed ALBUMIN (BEAKER) (test 3.0 g/dL 3.5-5.0 Specimen slightly tncj=8141) hemolyzed ALKALINE PHOSPHATASE 94 U/L 40-150 (BEAKER) (test mwhv=024) BILIRUBIN TOTAL (BEAKER) 0.4 mg/dL 0.2-1.2 Specimen slightly (test xxtf=206) hemolyzed SODIUM (BEAKER) (test 140 meq/L 136-145 bgxr=414) POTASSIUM (BEAKER) (test 4.3 meq/L 3.5-5.1 Specimen slightly onkl=845) hemolyzed CHLORIDE (BEAKER) (test 107 meq/L 98-107 ilfj=924) CO2 (BEAKER) (test 31 meq/L 22-29 zugl=980) BLOOD UREA NITROGEN 21 mg/dL 7-21 (BEAKER) (test qlsp=856) CREATININE (BEAKER) (test 0.82 mg/dL 0.57-1.25 Specimen slightly xnja=602) hemolyzed GLUCOSE RANDOM (BEAKER) 107 mg/dL 70-105 (test uxcq=586) CALCIUM (BEAKER) (test 8.5 mg/dL 8.4-10.2 oxft=485) AST (SGOT) (BEAKER) (test 20 U/L 5-34 Specimen slightly nffv=721) hemolyzed ALT (SGPT) (BEAKER) (test 15 U/L 6-55 Specimen slightly ttcx=906) hemolyzed EGFR (BEAKER) (test 93 mL/min/1.73 sq m ESTIMATED GFR IS NOT rgii=6710) ACCURATE CREATININE CLEARANCE IN PREDICTING GLOMERULAR FILTRATION RATE. ESTIMATED GFR IS NOT APPLICABLE FOR DIALYSIS PATIENTS. BLOOD GAS, [id number] 17:28:00 Test Item Value Reference Range Comments PH ARTERIAL (BEAKER) (test yfkg=166) 7.41 7.35-7.45 PCO2 ARTERIAL (BEAKER) (test inll=919) 44 mmHg 35-45 PO2 ARTERIAL (BEAKER) (test lryb=398) 248 mmHg 80-90 O2 SATURATION ARTERIAL (BEAKER) (test vwxq=661) 99.6 % 96.0-97.0 HCO3 ARTERIAL (BEAKER) (test fecr=997) 28 mmol/L 21-29 BASE EXCESS ARTERIAL (BEAKER) (test frgu=211) 2.4 mmol/L -2.0-3.0 PATIENT TEMPERATURE (BEAKER) (test ffgv=2554) 36.5 C FIO2 (BEAKER) (test egws=4278) 60.0 % CBC W/PLT COUNT & AUTO [id number] 17:25:00 Test Item Value Reference Range Comments WHITE BLOOD CELL COUNT (BEAKER) (test ejul=090) 8.1 K/ L 3.5-10.5 RED BLOOD CELL COUNT (BEAKER) (test jfdl=649) 2.78 M/ L 4.63-6.08 HEMOGLOBIN (BEAKER) (test fddz=684) 8.2 GM/DL 13.7-17.5 HEMATOCRIT (BEAKER) (test sybz=971) 25.1 % 40.1-51.0 MEAN CORPUSCULAR VOLUME (BEAKER) (test ssoz=966) 90.3 fL 79.0-92.2 MEAN CORPUSCULAR HEMOGLOBIN (BEAKER) (test 29.5 pg 25.7-32.2 jiya=680) MEAN CORPUSCULAR HEMOGLOBIN CONC (BEAKER) (test 32.7 GM/DL 32.3-36.5 vfyb=445) RED CELL DISTRIBUTION WIDTH (BEAKER) (test 14.8 % 11.6-14.4 dlqw=510) PLATELET COUNT (BEAKER) (test inqh=134) 250 K/CU MM 150-450 MEAN PLATELET VOLUME (BEAKER) (test elri=148) 10.2 fL 9.4-12.4 NUCLEATED RED BLOOD CELLS (BEAKER) (test 0 /100 WBC 0-0 youl=603) NEUTROPHILS RELATIVE PERCENT (BEAKER) (test 75 % ufrw=012) LYMPHOCYTES RELATIVE PERCENT (BEAKER) (test 17 % fwdq=214) MONOCYTES RELATIVE PERCENT (BEAKER) (test 5 % dpgv=587) EOSINOPHILS RELATIVE PERCENT (BEAKER) (test 2 % pacg=561) BASOPHILS RELATIVE PERCENT (BEAKER) (test 0 % avzt=957) NEUTROPHILS ABSOLUTE COUNT (BEAKER) (test 6.06 K/ L 1.78-5.38 awwd=120) LYMPHOCYTES ABSOLUTE COUNT (BEAKER) (test 1.40 K/ L 1.32-3.57 oxlt=295) MONOCYTES ABSOLUTE COUNT (BEAKER) (test 0.40 K/ L 0.30-0.82 xdvw=826) EOSINOPHILS ABSOLUTE COUNT (BEAKER) (test 0.14 K/ L 0.04-0.54 cywp=843) BASOPHILS ABSOLUTE COUNT (BEAKER) (test 0.03 K/ L 0.01-0.08 skqn=913) IMMATURE GRANULOCYTES-RELATIVE PERCENT (BEAKER) 1 % 0-1 (test bnwe=5184) POCT-GLUCOSE [id number] 17:19:00 Test Item Value Reference Range Comments POC-GLUCOSE METER (BEAKER) 108 mg/dL 70-110 TESTED AT [address] (test cjgg=5892) [place] [address] [id number] 15:50:00 Test Item Value Reference Range Comments ACTIVATED CLOTTING TIME 213 sec TESTED AT [address] (BEAKER) (test etjr=091) [place] [address] [id number] 15:36:00 Test Item Value Reference Range Comments ACTIVATED CLOTTING TIME 202 sec TESTED AT [address] (BEAKER) (test aoad=163) [place] [address] POCT-GLUCOSE [id number] 11:42:00 Test Item Value Reference Range Comments POC-GLUCOSE METER (BEAKER) 116 mg/dL 70-110 TESTED AT [address] (test calx=9393) [place] [address] POCT-GLUCOSE [id number] 10:10:00 Test Item Value Reference Range Comments POC-GLUCOSE METER (BEAKER) 134 mg/dL 70-110 TESTED AT [address] (test dnuh=4527) [place] [address] [id number] 06:29:00 Test Item Value Reference Range Comments MAGNESIUM (BEAKER) (test vfoz=475) 1.4 mg/dL 1.6-2.6 BASIC METABOLIC [id number] 06:29:00 Test Item Value Reference Range Comments SODIUM (BEAKER) (test 139 meq/L 136-145 wzcy=764) POTASSIUM (BEAKER) (test 4.0 meq/L 3.5-5.1 rcki=025) CHLORIDE (BEAKER) (test 105 meq/L 98-107 ficx=839) CO2 (BEAKER) (test 30 meq/L 22-29 vcqz=095) BLOOD UREA NITROGEN 24 mg/dL 7-21 (BEAKER) (test xwno=687) CREATININE (BEAKER) (test 0.81 mg/dL 0.57-1.25 unlu=935) GLUCOSE RANDOM (BEAKER) 143 mg/dL 70-105 (test acom=969) CALCIUM (BEAKER) (test 8.6 mg/dL 8.4-10.2 bsst=473) EGFR (BEAKER) (test 94 mL/min/1.73 sq m ESTIMATED GFR IS NOT eolr=4319) ACCURATE CREATININE CLEARANCE IN PREDICTING GLOMERULAR FILTRATION RATE. ESTIMATED GFR IS NOT APPLICABLE FOR DIALYSIS PATIENTS. PROTHROMBIN [id number] 06:00:00 Test Item Value Reference Range Comments PROTIME (BEAKER) (test ztsz=007) 13.5 seconds 11.9-14.2 INR (BEAKER) (test swwf=231) 1.1 <=5.9 Effective 12/26/2018: PT Reference Range ChangeNew: 11.9-14.2 Previous: 11.7- 14.7RECOMMENDED COUMADIN/WARFARIN INR THERAPY RANGESSTANDARD DOSE: 2.0-3.0 Includes: PROPHYLAXIS for venous thrombosis, systemic embolization; TREATMENT for venous thrombosis and/or pulmonary embolus.HIGH RISK: Target INR is2.5-3.5 for patients wiht mechanical heart valves.CBC (HEMOGRAM ONLY)2019-01-23 05:56:00 Test Item Value Reference Range Comments WHITE BLOOD CELL COUNT (BEAKER) (test fyim=570) 6.9 K/ L 3.5-10.5 RED BLOOD CELL COUNT (BEAKER) (test nrjg=387) 2.50 M/ L 4.63-6.08 HEMOGLOBIN (BEAKER) (test qvqu=097) 7.2 GM/DL 13.7-17.5 HEMATOCRIT (BEAKER) (test gjvs=810) 23.0 % 40.1-51.0 MEAN CORPUSCULAR VOLUME (BEAKER) (test lopj=108) 92.0 fL 79.0-92.2 MEAN CORPUSCULAR HEMOGLOBIN (BEAKER) (test 28.8 pg 25.7-32.2 bioo=360) MEAN CORPUSCULAR HEMOGLOBIN CONC (BEAKER) (test 31.3 GM/DL 32.3-36.5 nhvy=477) RED CELL DISTRIBUTION WIDTH (BEAKER) (test 14.8 % 11.6-14.4 yyxa=145) PLATELET COUNT (BEAKER) (test ppkf=223) 260 K/CU MM 150-450 MEAN PLATELET VOLUME (BEAKER) (test dxfw=412) 10.5 fL 9.4-12.4 NUCLEATED RED BLOOD CELLS (BEAKER) (test 0 /100 WBC 0-0 yjyr=185) POCT-GLUCOSE [id number] 20:52:00 Test Item Value Reference Range Comments POC-GLUCOSE METER (BEAKER) 217 mg/dL 70-110 TESTED AT [address] (test yelg=0140) [facility] [address] POCT-GLUCOSE [id number] 17:22:00 Test Item Value Reference Range Comments POC-GLUCOSE METER (BEAKER) 233 mg/dL 70-110 TESTED AT [address] (test djul=4842) [facility] [address] POCT-GLUCOSE [id number] 11:12:00 Test Item Value Reference Range Comments POC-GLUCOSE METER (BEAKER) 148 mg/dL 70-110 TESTED AT [address] (test dhau=7822) [place] [id number] POCT-GLUCOSE [id number] 07:12:00 Test Item Value Reference Range Comments POC-GLUCOSE METER (BEAKER) 173 mg/dL 70-110 TESTED AT [address] (test cjru=2112) [place] [id number] 06:10:00 Test Item Value Reference Range Comments MAGNESIUM (BEAKER) (test bjzp=566) 1.7 mg/dL 1.6-2.6 BASIC METABOLIC [id number] 06:10:00 Test Item Value Reference Range Comments SODIUM (BEAKER) (test 140 meq/L 136-145 uxpx=535) POTASSIUM (BEAKER) (test 4.3 meq/L 3.5-5.1 kpqb=338) CHLORIDE (BEAKER) (test 105 meq/L 98-107 kzdt=076) CO2 (BEAKER) (test 31 meq/L 22-29 dpvo=043) BLOOD UREA NITROGEN 22 mg/dL 7-21 (BEAKER) (test dzmi=220) CREATININE (BEAKER) (test 0.85 mg/dL 0.57-1.25 mpra=683) GLUCOSE RANDOM (BEAKER) 164 mg/dL 70-105 (test mbhc=114) CALCIUM (BEAKER) (test 8.7 mg/dL 8.4-10.2 soji=845) EGFR (BEAKER) (test 89 mL/min/1.73 sq m ESTIMATED GFR IS NOT jmcy=3260) ACCURATE CREATININE CLEARANCE IN PREDICTING GLOMERULAR FILTRATION RATE. ESTIMATED GFR IS NOT APPLICABLE FOR DIALYSIS PATIENTS. CBC (HEMOGRAM ONLY)2019-01-22 05:34:00 Test Item Value Reference Range Comments WHITE BLOOD CELL COUNT (BEAKER) (test qnfl=917) 7.6 K/ L 3.5-10.5 RED BLOOD CELL COUNT (BEAKER) (test sucv=061) 2.66 M/ L 4.63-6.08 HEMOGLOBIN (BEAKER) (test cwoo=395) 7.8 GM/DL 13.7-17.5 HEMATOCRIT (BEAKER) (test mcai=142) 24.9 % 40.1-51.0 MEAN CORPUSCULAR VOLUME (BEAKER) (test vodx=634) 93.6 fL 79.0-92.2 MEAN CORPUSCULAR HEMOGLOBIN (BEAKER) (test 29.3 pg 25.7-32.2 diiw=355) MEAN CORPUSCULAR HEMOGLOBIN CONC (BEAKER) (test 31.3 GM/DL 32.3-36.5 txfu=215) RED CELL DISTRIBUTION WIDTH (BEAKER) (test 15.0 % 11.6-14.4 ltsp=452) PLATELET COUNT (BEAKER) (test keej=816) 255 K/CU MM 150-450 MEAN PLATELET VOLUME (BEAKER) (test bnqf=647) 10.2 fL 9.4-12.4 NUCLEATED RED BLOOD CELLS (BEAKER) (test 0 /100 WBC 0-0 gqbx=789) POCT-GLUCOSE [id number] 21:00:00 Test Item Value Reference Range Comments POC-GLUCOSE METER (BEAKER) 213 mg/dL 70-110 TESTED AT [facility] [address] [facility] (test yxay=5999) [facility] [address] POCT-GLUCOSE [id number] 17:12:00 Test Item Value Reference Range Comments POC-GLUCOSE METER (BEAKER) 274 mg/dL 70-110 TESTED AT [facility] [address] [facility] (test devu=5674) [facility] [address] POCT-GLUCOSE [id number] 12:26:00 Test Item Value Reference Range Comments POC-GLUCOSE METER (BEAKER) 211 mg/dL 70-110 TESTED AT [address] (test dnqz=6734) [facility] [address] POCT-GLUCOSE [id number] 06:51:00 Test Item Value Reference Range Comments POC-GLUCOSE METER (BEAKER) 151 mg/dL 70-110 TESTED AT [address] (test sehq=8901) [facility] [address] BASIC METABOLIC [id number] 05:44:00 Test Item Value Reference Range Comments SODIUM (BEAKER) (test 140 meq/L 136-145 qdfb=455) POTASSIUM (BEAKER) (test 4.3 meq/L 3.5-5.1 ijcf=589) CHLORIDE (BEAKER) (test 105 meq/L 98-107 xhlt=288) CO2 (BEAKER) (test 30 meq/L 22-29 jfuc=182) BLOOD UREA NITROGEN 22 mg/dL 7-21 (BEAKER) (test xrlx=003) CREATININE (BEAKER) (test 0.85 mg/dL 0.57-1.25 imbz=341) GLUCOSE RANDOM (BEAKER) 146 mg/dL 70-105 (test wtfk=628) CALCIUM (BEAKER) (test 8.6 mg/dL 8.4-10.2 qebd=073) EGFR (BEAKER) (test 89 mL/min/1.73 sq m ESTIMATED GFR IS NOT drsi=4926) ACCURATE CREATININE CLEARANCE IN PREDICTING GLOMERULAR FILTRATION RATE. ESTIMATED GFR IS NOT APPLICABLE FOR DIALYSIS PATIENTS. [id number] 05:43:00 Test Item Value Reference Range Comments MAGNESIUM (BEAKER) (test pefu=152) 1.7 mg/dL 1.6-2.6 CBC (HEMOGRAM ONLY)2019-01-21 05:25:00 Test Item Value Reference Range Comments WHITE BLOOD CELL COUNT (BEAKER) (test sixh=076) 8.7 K/ L 3.5-10.5 RED BLOOD CELL COUNT (BEAKER) (test fzjl=534) 2.63 M/ L 4.63-6.08 HEMOGLOBIN (BEAKER) (test mrpe=573) 7.9 GM/DL 13.7-17.5 HEMATOCRIT (BEAKER) (test ojek=128) 24.4 % 40.1-51.0 MEAN CORPUSCULAR VOLUME (BEAKER) (test qqwf=078) 92.8 fL 79.0-92.2 MEAN CORPUSCULAR HEMOGLOBIN (BEAKER) (test 30.0 pg 25.7-32.2 bbaf=820) MEAN CORPUSCULAR HEMOGLOBIN CONC (BEAKER) (test 32.4 GM/DL 32.3-36.5 qxqg=899) RED CELL DISTRIBUTION WIDTH (BEAKER) (test 15.0 % 11.6-14.4 cais=948) PLATELET COUNT (BEAKER) (test smdk=322) 259 K/CU MM 150-450 MEAN PLATELET VOLUME (BEAKER) (test bbps=745) 10.3 fL 9.4-12.4 NUCLEATED RED BLOOD CELLS (BEAKER) (test 0 /100 WBC 0-0 vigd=579) POCT-GLUCOSE [id number] 22:26:00 Test Item Value Reference Range Comments POC-GLUCOSE METER (BEAKER) 239 mg/dL 70-110 TESTED AT [address] (test uqje=6815) [facility] [address] POCT-GLUCOSE [id number] 17:16:00 Test Item Value Reference Range Comments POC-GLUCOSE METER (BEAKER) 242 mg/dL 70-110 TESTED AT [address] (test xxtb=9429) [facility] [address] HEMOGLOBIN AND [id number] 16:07:00 Test Item Value Reference Range Comments HEMOGLOBIN (BEAKER) (test fqgc=098) 7.4 GM/DL 13.7-17.5 HEMATOCRIT (BEAKER) (test avkt=079) 22.8 % 40.1-51.0 POCT-GLUCOSE [id number] 11:18:00 Test Item Value Reference Range Comments POC-GLUCOSE METER (BEAKER) 198 mg/dL 70-110 TESTED AT [address] (test upas=5068) [facility] [address] POCT-GLUCOSE [id number] 07:17:00 Test Item Value Reference Range Comments POC-GLUCOSE METER (BEAKER) 195 mg/dL 70-110 TESTED AT [facility] [address] (test dleq=9255) [place] [address] [id number] 05:46:00 Test Item Value Reference Range Comments MAGNESIUM (BEAKER) (test dqdm=756) 1.4 mg/dL 1.6-2.6 BASIC METABOLIC [id number] 05:46:00 Test Item Value Reference Range Comments SODIUM (BEAKER) (test 140 meq/L 136-145 mcfk=997) POTASSIUM (BEAKER) (test 4.0 meq/L 3.5-5.1 tced=025) CHLORIDE (BEAKER) (test 105 meq/L 98-107 rjah=736) CO2 (BEAKER) (test 31 meq/L 22-29 cwjb=242) BLOOD UREA NITROGEN 22 mg/dL 7-21 (BEAKER) (test notj=516) CREATININE (BEAKER) (test 0.94 mg/dL 0.57-1.25 ynya=352) GLUCOSE RANDOM (BEAKER) 166 mg/dL 70-105 (test byoj=812) CALCIUM (BEAKER) (test 8.4 mg/dL 8.4-10.2 tqoj=524) EGFR (BEAKER) (test 79 mL/min/1.73 sq m ESTIMATED GFR IS NOT tbao=1075) ACCURATE CREATININE CLEARANCE IN PREDICTING GLOMERULAR FILTRATION RATE. ESTIMATED GFR IS NOT APPLICABLE FOR DIALYSIS PATIENTS. CBC (HEMOGRAM ONLY)2019-01-20 05:12:00 Test Item Value Reference Range Comments WHITE BLOOD CELL COUNT (BEAKER) (test vdth=420) 8.2 K/ L 3.5-10.5 RED BLOOD CELL COUNT (BEAKER) (test yycg=281) 2.50 M/ L 4.63-6.08 HEMOGLOBIN (BEAKER) (test vdow=323) 7.4 GM/DL 13.7-17.5 HEMATOCRIT (BEAKER) (test arlm=733) 23.3 % 40.1-51.0 MEAN CORPUSCULAR VOLUME (BEAKER) (test bjif=297) 93.2 fL 79.0-92.2 MEAN CORPUSCULAR HEMOGLOBIN (BEAKER) (test 29.6 pg 25.7-32.2 acbo=870) MEAN CORPUSCULAR HEMOGLOBIN CONC (BEAKER) (test 31.8 GM/DL 32.3-36.5 aldk=754) RED CELL DISTRIBUTION WIDTH (BEAKER) (test 15.1 % 11.6-14.4 ynrf=313) PLATELET COUNT (BEAKER) (test szzz=077) 229 K/CU MM 150-450 MEAN PLATELET VOLUME (BEAKER) (test ahag=669) 10.5 fL 9.4-12.4 NUCLEATED RED BLOOD CELLS (BEAKER) (test 0 /100 WBC 0-0 wsay=880) POCT-GLUCOSE [id number] 21:16:00 Test Item Value Reference Range Comments POC-GLUCOSE METER (BEAKER) 232 mg/dL 70-110 TESTED AT [address] (test lwzt=1947) [place] [id number] POCT-GLUCOSE [id number] 17:14:00 Test Item Value Reference Range Comments POC-GLUCOSE METER (BEAKER) 235 mg/dL 70-110 TESTED AT [address] (test dkrt=9508) [place] [id number] POCT-GLUCOSE [id number] 11:45:00 Test Item Value Reference Range Comments POC-GLUCOSE METER (BEAKER) 223 mg/dL 70-110 TESTED AT [address] (test wxun=8431) [place] [id number] POCT-GLUCOSE [id number] 07:43:00 Test Item Value Reference Range Comments POC-GLUCOSE METER (BEAKER) 156 mg/dL 70-110 TESTED AT [address] (test wwfd=4005) [place] [address] [id number] 05:42:00 Test Item Value Reference Range Comments MAGNESIUM (BEAKER) (test xbjb=681) 1.4 mg/dL 1.6-2.6 BASIC METABOLIC [id number] 05:42:00 Test Item Value Reference Range Comments SODIUM (BEAKER) (test 138 meq/L 136-145 wmjl=504) POTASSIUM (BEAKER) (test 4.0 meq/L 3.5-5.1 veua=018) CHLORIDE (BEAKER) (test 102 meq/L 98-107 rgge=353) CO2 (BEAKER) (test 30 meq/L 22-29 xrkn=946) BLOOD UREA NITROGEN 20 mg/dL 7-21 (BEAKER) (test sgbi=097) CREATININE (BEAKER) (test 0.92 mg/dL 0.57-1.25 puly=157) GLUCOSE RANDOM (BEAKER) 169 mg/dL 70-105 (test mywa=647) CALCIUM (BEAKER) (test 8.5 mg/dL 8.4-10.2 vucu=899) EGFR (BEAKER) (test 81 mL/min/1.73 sq m ESTIMATED GFR IS NOT eafc=3014) ACCURATE CREATININE CLEARANCE IN PREDICTING GLOMERULAR FILTRATION RATE. ESTIMATED GFR IS NOT APPLICABLE FOR DIALYSIS PATIENTS. CBC (HEMOGRAM ONLY)2019-01-19 05:13:00 Test Item Value Reference Range Comments WHITE BLOOD CELL COUNT (BEAKER) (test snhc=291) 7.5 K/ L 3.5-10.5 RED BLOOD CELL COUNT (BEAKER) (test kzfa=708) 2.72 M/ L 4.63-6.08 HEMOGLOBIN (BEAKER) (test mgqp=487) 8.2 GM/DL 13.7-17.5 HEMATOCRIT (BEAKER) (test vbkn=306) 25.2 % 40.1-51.0 MEAN CORPUSCULAR VOLUME (BEAKER) (test mpvo=508) 92.6 fL 79.0-92.2 MEAN CORPUSCULAR HEMOGLOBIN (BEAKER) (test 30.1 pg 25.7-32.2 wbkd=049) MEAN CORPUSCULAR HEMOGLOBIN CONC (BEAKER) (test 32.5 GM/DL 32.3-36.5 bqdo=028) RED CELL DISTRIBUTION WIDTH (BEAKER) (test 15.3 % 11.6-14.4 pont=162) PLATELET COUNT (BEAKER) (test ydgk=847) 224 K/CU MM 150-450 MEAN PLATELET VOLUME (BEAKER) (test nvhe=913) 10.4 fL 9.4-12.4 NUCLEATED RED BLOOD CELLS (BEAKER) (test 0 /100 WBC 0-0 clld=905) POCT-GLUCOSE [id number] 21:26:00 Test Item Value Reference Range Comments POC-GLUCOSE METER (BEAKER) 198 mg/dL 70-110 TESTED AT [facility] [address] [facility] (test cnba=1520) [facility] [address] POCT-GLUCOSE [id number] 16:39:00 Test Item Value Reference Range Comments POC-GLUCOSE METER (BEAKER) 215 mg/dL 70-110 TESTED AT [facility] [address] [facility] (test yene=6383) [place] [id number] POCT-GLUCOSE [id number] 12:00:00 Test Item Value Reference Range Comments POC-GLUCOSE METER (BEAKER) 157 mg/dL 70-110 TESTED AT [address] (test blln=3235) [place] [address] BLOOD [id number] 08:01:00 Test Item Value Reference Range Comments CULTURE (BEAKER) (test mhqg=5040) No growth in 5 days POCT-GLUCOSE [id number] 07:05:00 Test Item Value Reference Range Comments POC-GLUCOSE METER (BEAKER) 206 mg/dL 70-110 TESTED AT [address] (test hidd=1289) [place] [address] [id number] 06:59:00 Test Item Value Reference Range Comments MAGNESIUM (BEAKER) (test vpcy=324) 1.4 mg/dL 1.6-2.6 BASIC METABOLIC [id number] 06:59:00 Test Item Value Reference Range Comments SODIUM (BEAKER) (test 139 meq/L 136-145 qoyz=827) POTASSIUM (BEAKER) (test 4.5 meq/L 3.5-5.1 tklb=600) CHLORIDE (BEAKER) (test 102 meq/L 98-107 ajqo=570) CO2 (BEAKER) (test 31 meq/L 22-29 lbrd=549) BLOOD UREA NITROGEN 16 mg/dL 7-21 (BEAKER) (test zwlj=016) CREATININE (BEAKER) (test 0.96 mg/dL 0.57-1.25 tzkk=102) GLUCOSE RANDOM (BEAKER) 152 mg/dL 70-105 (test xfxr=351) CALCIUM (BEAKER) (test 8.8 mg/dL 8.4-10.2 endb=375) EGFR (BEAKER) (test 77 mL/min/1.73 sq m ESTIMATED GFR IS NOT cybe=7028) ACCURATE CREATININE CLEARANCE IN PREDICTING GLOMERULAR FILTRATION RATE. ESTIMATED GFR IS NOT APPLICABLE FOR DIALYSIS PATIENTS. CBC (HEMOGRAM ONLY)2019-01-18 06:11:00 Test Item Value Reference Range Comments WHITE BLOOD CELL COUNT (BEAKER) (test qwme=593) 6.7 K/ L 3.5-10.5 RED BLOOD CELL COUNT (BEAKER) (test mckb=472) 2.72 M/ L 4.63-6.08 HEMOGLOBIN (BEAKER) (test acnu=212) 8.3 GM/DL 13.7-17.5 HEMATOCRIT (BEAKER) (test fozc=999) 25.1 % 40.1-51.0 MEAN CORPUSCULAR VOLUME (BEAKER) (test scqe=401) 92.3 fL 79.0-92.2 MEAN CORPUSCULAR HEMOGLOBIN (BEAKER) (test 30.5 pg 25.7-32.2 dayh=758) MEAN CORPUSCULAR HEMOGLOBIN CONC (BEAKER) (test 33.1 GM/DL 32.3-36.5 jbol=347) RED CELL DISTRIBUTION WIDTH (BEAKER) (test 15.6 % 11.6-14.4 offe=623) PLATELET COUNT (BEAKER) (test huaq=038) 209 K/CU MM 150-450 MEAN PLATELET VOLUME (BEAKER) (test wrjl=447) 10.6 fL 9.4-12.4 NUCLEATED RED BLOOD CELLS (BEAKER) (test 0 /100 WBC 0-0 nqys=656) POCT-GLUCOSE [id number] 21:21:00 Test Item Value Reference Range Comments POC-GLUCOSE METER (BEAKER) 211 mg/dL 70-110 TESTED AT [address] (test smcs=8985) [place] [address] POCT-GLUCOSE [id number] 17:07:00 Test Item Value Reference Range Comments POC-GLUCOSE METER (BEAKER) 201 mg/dL 70-110 TESTED AT [address] (test qsdu=8797) [place] [id number] POCT-GLUCOSE [id number] 11:32:00 Test Item Value Reference Range Comments POC-GLUCOSE METER (BEAKER) 193 mg/dL 70-110 TESTED AT [address] (test cbwn=8432) [place] [address] POCT-GLUCOSE [id number] 07:34:00 Test Item Value Reference Range Comments POC-GLUCOSE METER (BEAKER) 129 mg/dL 70-110 TESTED AT [address] (test yhaa=4386) [place] [address] [id number] 05:27:00 Test Item Value Reference Range Comments MAGNESIUM (BEAKER) (test abpd=934) 1.4 mg/dL 1.6-2.6 BASIC METABOLIC [id number] 05:27:00 Test Item Value Reference Range Comments SODIUM (BEAKER) (test 138 meq/L 136-145 vylr=752) POTASSIUM (BEAKER) (test 4.2 meq/L 3.5-5.1 ltjo=291) CHLORIDE (BEAKER) (test 102 meq/L 98-107 zvev=738) CO2 (BEAKER) (test 30 meq/L 22-29 pgyo=865) BLOOD UREA NITROGEN 15 mg/dL 7-21 (BEAKER) (test mlpk=922) CREATININE (BEAKER) (test 0.84 mg/dL 0.57-1.25 abeq=629) GLUCOSE RANDOM (BEAKER) 126 mg/dL 70-105 (test qivz=183) CALCIUM (BEAKER) (test 8.9 mg/dL 8.4-10.2 ogsq=281) EGFR (BEAKER) (test 90 mL/min/1.73 sq m ESTIMATED GFR IS NOT ietz=3826) ACCURATE CREATININE CLEARANCE IN PREDICTING GLOMERULAR FILTRATION RATE. ESTIMATED GFR IS NOT APPLICABLE FOR DIALYSIS PATIENTS. CBC (HEMOGRAM ONLY)2019-01-17 05:01:00 Test Item Value Reference Range Comments WHITE BLOOD CELL COUNT (BEAKER) (test mvdi=518) 5.9 K/ L 3.5-10.5 RED BLOOD CELL COUNT (BEAKER) (test ylnd=699) 2.76 M/ L 4.63-6.08 HEMOGLOBIN (BEAKER) (test bgwa=252) 8.2 GM/DL 13.7-17.5 HEMATOCRIT (BEAKER) (test gghj=611) 25.4 % 40.1-51.0 MEAN CORPUSCULAR VOLUME (BEAKER) (test vahs=917) 92.0 fL 79.0-92.2 MEAN CORPUSCULAR HEMOGLOBIN (BEAKER) (test 29.7 pg 25.7-32.2 icvi=443) MEAN CORPUSCULAR HEMOGLOBIN CONC (BEAKER) (test 32.3 GM/DL 32.3-36.5 xfmc=070) RED CELL DISTRIBUTION WIDTH (BEAKER) (test 15.6 % 11.6-14.4 fcct=877) PLATELET COUNT (BEAKER) (test dtth=832) 191 K/CU MM 150-450 MEAN PLATELET VOLUME (BEAKER) (test rbib=903) 10.2 fL 9.4-12.4 NUCLEATED RED BLOOD CELLS (BEAKER) (test 0 /100 WBC 0-0 rkav=688) POCT-GLUCOSE [id number] 20:42:00 Test Item Value Reference Range Comments POC-GLUCOSE METER (BEAKER) 218 mg/dL 70-110 TESTED AT [address] (test fupi=7288) [place] [address] HEMOGLOBIN AND [id number] 18:22:00 Test Item Value Reference Range Comments HEMOGLOBIN (BEAKER) (test oxrv=691) 7.9 GM/DL 13.7-17.5 HEMATOCRIT (BEAKER) (test mngc=804) 24.3 % 40.1-51.0 POCT-GLUCOSE [id number] 17:31:00 Test Item Value Reference Range Comments POC-GLUCOSE METER (BEAKER) 192 mg/dL 70-110 TESTED AT [address] (test bcvz=9248) [place] [address] POCT-GLUCOSE [id number] 11:43:00 Test Item Value Reference Range Comments POC-GLUCOSE METER (BEAKER) 176 mg/dL 70-110 TESTED AT [address] (test jglt=5697) [place] [address] POCT-GLUCOSE [id number] 07:42:00 Test Item Value Reference Range Comments POC-GLUCOSE METER (BEAKER) 167 mg/dL 70-110 TESTED AT [address] (test gfxo=1521) [place] [address] CBC (HEMOGRAM ONLY)2019-01-16 07:09:00 Test Item Value Reference Range Comments WHITE BLOOD CELL COUNT (BEAKER) (test ygme=466) 5.7 K/ L 3.5-10.5 RED BLOOD CELL COUNT (BEAKER) (test vqwq=463) 2.47 M/ L 4.63-6.08 HEMOGLOBIN (BEAKER) (test wlkw=051) 7.4 GM/DL 13.7-17.5 HEMATOCRIT (BEAKER) (test nirg=673) 22.8 % 40.1-51.0 MEAN CORPUSCULAR VOLUME (BEAKER) (test qgxc=086) 92.3 fL 79.0-92.2 MEAN CORPUSCULAR HEMOGLOBIN (BEAKER) (test 30.0 pg 25.7-32.2 rnjf=956) MEAN CORPUSCULAR HEMOGLOBIN CONC (BEAKER) (test 32.5 GM/DL 32.3-36.5 oajh=264) RED CELL DISTRIBUTION WIDTH (BEAKER) (test 15.6 % 11.6-14.4 qbjt=547) PLATELET COUNT (BEAKER) (test fqho=700) 176 K/CU MM 150-450 MEAN PLATELET VOLUME (BEAKER) (test awjo=717) 10.4 fL 9.4-12.4 NUCLEATED RED BLOOD CELLS (BEAKER) (test 0 /100 WBC 0-0 xrmi=335) [id number] 06:43:00 Test Item Value Reference Range Comments MAGNESIUM (BEAKER) (test mxsu=487) 1.6 mg/dL 1.6-2.6 BASIC METABOLIC [id number] 06:43:00 Test Item Value Reference Range Comments SODIUM (BEAKER) (test 140 meq/L 136-145 rfmf=903) POTASSIUM (BEAKER) (test 4.2 meq/L 3.5-5.1 ggfq=605) CHLORIDE (BEAKER) (test 103 meq/L 98-107 okhx=231) CO2 (BEAKER) (test 31 meq/L 22-29 giar=554) BLOOD UREA NITROGEN 19 mg/dL 7-21 (BEAKER) (test djgo=241) CREATININE (BEAKER) (test 0.87 mg/dL 0.57-1.25 mezr=300) GLUCOSE RANDOM (BEAKER) 149 mg/dL 70-105 (test fdyy=412) CALCIUM (BEAKER) (test 8.6 mg/dL 8.4-10.2 abld=464) EGFR (BEAKER) (test 87 mL/min/1.73 sq m ESTIMATED GFR IS NOT yird=4914) ACCURATE CREATININE CLEARANCE IN PREDICTING GLOMERULAR FILTRATION RATE. ESTIMATED GFR IS NOT APPLICABLE FOR DIALYSIS PATIENTS. HEMOGLOBIN AND [id number] 06:28:00 Test Item Value Reference Range Comments HEMOGLOBIN (BEAKER) (test fgjx=167) 7.4 GM/DL 13.7-17.5 HEMATOCRIT (BEAKER) (test knsy=435) 22.8 % 40.1-51.0 POCT-GLUCOSE [id number] 21:38:00 Test Item Value Reference Range Comments POC-GLUCOSE METER (BEAKER) 233 mg/dL 70-110 TESTED AT [address] (test jenv=9644) [facility] [address] HEMOGLOBIN AND [id number] 18:13:00 Test Item Value Reference Range Comments HEMOGLOBIN (BEAKER) (test ksqi=573) 7.2 GM/DL 13.7-17.5 HEMATOCRIT (BEAKER) (test emfs=730) 21.5 % 40.1-51.0 POCT-GLUCOSE [id number] 16:47:00 Test Item Value Reference Range Comments POC-GLUCOSE METER (BEAKER) 321 mg/dL 70-110 Notified RYLEE OROPEZA/TESTED AT [facility] (test lmcn=7206) [address] [place], [place] [id number] POCT-GLUCOSE [id number] 11:33:00 Test Item Value Reference Range Comments POC-GLUCOSE METER (BEAKER) 193 mg/dL 70-110 TESTED AT [address] (test gyob=0901) [place] [id number] POCT-GLUCOSE [id number] 09:03:00 Test Item Value Reference Range Comments POC-GLUCOSE METER (BEAKER) 259 mg/dL 70-110 TESTED AT [address] (test fsux=1118) [place] [address] CBC (HEMOGRAM ONLY)2019-01-15 06:39:00 Test Item Value Reference Range Comments WHITE BLOOD CELL COUNT (BEAKER) (test caqc=804) 5.8 K/ L 3.5-10.5 RED BLOOD CELL COUNT (BEAKER) (test unen=804) 2.32 M/ L 4.63-6.08 HEMOGLOBIN (BEAKER) (test nsut=870) 7.0 GM/DL 13.7-17.5 HEMATOCRIT (BEAKER) (test evpi=835) 21.6 % 40.1-51.0 MEAN CORPUSCULAR VOLUME (BEAKER) (test eyth=581) 93.1 fL 79.0-92.2 MEAN CORPUSCULAR HEMOGLOBIN (BEAKER) (test 30.2 pg 25.7-32.2 uxni=856) MEAN CORPUSCULAR HEMOGLOBIN CONC (BEAKER) (test 32.4 GM/DL 32.3-36.5 cdsd=883) RED CELL DISTRIBUTION WIDTH (BEAKER) (test 16.1 % 11.6-14.4 hzcc=054) PLATELET COUNT (BEAKER) (test lsfp=947) 158 K/CU MM 150-450 MEAN PLATELET VOLUME (BEAKER) (test rxvf=267) 9.9 fL 9.4-12.4 NUCLEATED RED BLOOD CELLS (BEAKER) (test 0 /100 WBC 0-0 mmrx=825) [id number] 06:23:00 Test Item Value Reference Range Comments MAGNESIUM (BEAKER) (test yods=357) 1.9 mg/dL 1.6-2.6 BASIC METABOLIC [id number] 06:23:00 Test Item Value Reference Range Comments SODIUM (BEAKER) (test 139 meq/L 136-145 fyoo=330) POTASSIUM (BEAKER) (test 4.0 meq/L 3.5-5.1 qdtm=308) CHLORIDE (BEAKER) (test 104 meq/L 98-107 yxbj=627) CO2 (BEAKER) (test 30 meq/L 22-29 vuer=785) BLOOD UREA NITROGEN 30 mg/dL 7-21 (BEAKER) (test xzej=385) CREATININE (BEAKER) (test 1.06 mg/dL 0.57-1.25 piuj=854) GLUCOSE RANDOM (BEAKER) 146 mg/dL 70-105 (test dudz=248) CALCIUM (BEAKER) (test 8.1 mg/dL 8.4-10.2 weud=658) EGFR (BEAKER) (test 69 mL/min/1.73 sq m ESTIMATED GFR IS NOT ticl=8121) ACCURATE CREATININE CLEARANCE IN PREDICTING GLOMERULAR FILTRATION RATE. ESTIMATED GFR IS NOT APPLICABLE FOR DIALYSIS PATIENTS. LIPID [id number] 06:23:00 Test Item Value Reference Range Comments TRIGLYCERIDES (BEAKER) (test ugbx=962) 212 mg/dL CHOLESTEROL (BEAKER) (test nqul=222) 113 mg/dL HDL CHOLESTEROL (BEAKER) (test cuta=306) 29 mg/dL LDL CHOLESTEROL CALCULATED (BEAKER) (test 42 mg/dL megl=299) Triglyceride Reference Range: Low Risk <150 Borderline 150- 199 High Risk 200-499 Very High Risk >=500Cholesterol Reference Range: Low Risk <200 Borderline 200-239 High Risk > 240HDL Cholesterol Reference Range: Low Risk >=60 High Risk <40LDL Cholesterol Reference Range: Optimal <100 Near Optimal 100-129 Borderline 130-159 High 160-189 Very High >=190HEMOGLOBIN AND [id number] 06:14:00 Test Item Value Reference Range Comments HEMOGLOBIN (BEAKER) (test pzaj=108) 7.0 GM/DL 13.7-17.5 HEMATOCRIT (BEAKER) (test tymt=947) 21.6 % 40.1-51.0 HEMOGLOBIN AND [id number] 22:20:00 Test Item Value Reference Range Comments HEMOGLOBIN (BEAKER) (test bfrw=087) 7.0 GM/DL 13.7-17.5 HEMATOCRIT (BEAKER) (test naak=411) 21.7 % 40.1-51.0 HEMOGLOBIN [id number] 21:50:00 Test Item Value Reference Range Comments HEMOGLOBIN A1C (BEAKER) (test aggd=183) 5.6 % 4.3-6.1 POCT-GLUCOSE [id number] 21:39:00 Test Item Value Reference Range Comments POC-GLUCOSE METER (BEAKER) 243 mg/dL 70-110 TESTED AT [address] (test gufl=7458) [place] [address] TSH/FREE T4 IF [id number] 18:57:00 Test Item Value Reference Range Comments THYROID STIMULATING HORMONE (BEAKER) (test 0.54 uIU/mL 0.35-4.94 vpab=971) POCT-GLUCOSE [id number] 18:06:00 Test Item Value Reference Range Comments POC-GLUCOSE METER (BEAKER) 231 mg/dL 70-110 TESTED AT [address] (test lczk=9777) [place] [id number] HEMOGLOBIN AND [id number] 12:33:00 Test Item Value Reference Range Comments HEMOGLOBIN (BEAKER) (test ndlw=513) 7.1 GM/DL 13.7-17.5 HEMATOCRIT (BEAKER) (test uupo=659) 22.1 % 40.1-51.0 POCT-GLUCOSE [id number] 11:37:00 Test Item Value Reference Range Comments POC-GLUCOSE METER (BEAKER) 201 mg/dL 70-110 TESTED AT [facility] [address] [facility] (test gjmw=4834) [facility] [address] POCT-GLUCOSE [id number] 07:52:00 Test Item Value Reference Range Comments POC-GLUCOSE METER (BEAKER) 191 mg/dL 70-110 TESTED AT [facility] [address] [facility] (test vnkg=1136) [facility] [address] [id number] 04:38:00 Test Item Value Reference Range Comments MAGNESIUM (BEAKER) (test ftne=032) 2.1 mg/dL 1.6-2.6 BASIC METABOLIC [id number] 04:38:00 Test Item Value Reference Range Comments SODIUM (BEAKER) (test 140 meq/L 136-145 iguw=517) POTASSIUM (BEAKER) (test 3.8 meq/L 3.5-5.1 xcfc=375) CHLORIDE (BEAKER) (test 103 meq/L 98-107 qcgs=038) CO2 (BEAKER) (test 30 meq/L 22-29 vquo=976) BLOOD UREA NITROGEN 54 mg/dL 7-21 (BEAKER) (test dmmy=560) CREATININE (BEAKER) (test 1.42 mg/dL 0.57-1.25 mltd=583) GLUCOSE RANDOM (BEAKER) 157 mg/dL 70-105 (test rnfx=546) CALCIUM (BEAKER) (test 8.1 mg/dL 8.4-10.2 vadq=405) EGFR (BEAKER) (test 49 mL/min/1.73 sq m ESTIMATED GFR IS NOT kita=3382) ACCURATE CREATININE CLEARANCE IN PREDICTING GLOMERULAR FILTRATION RATE. ESTIMATED GFR IS NOT APPLICABLE FOR DIALYSIS PATIENTS. CBC (HEMOGRAM ONLY)2019-01-14 04:11:00 Test Item Value Reference Range Comments WHITE BLOOD CELL COUNT (BEAKER) (test bszp=841) 8.0 K/ L 3.5-10.5 RED BLOOD CELL COUNT (BEAKER) (test cphl=076) 2.34 M/ L 4.63-6.08 HEMOGLOBIN (BEAKER) (test rzkm=305) 7.1 GM/DL 13.7-17.5 HEMATOCRIT (BEAKER) (test cneb=603) 21.7 % 40.1-51.0 MEAN CORPUSCULAR VOLUME (BEAKER) (test roau=992) 92.7 fL 79.0-92.2 MEAN CORPUSCULAR HEMOGLOBIN (BEAKER) (test 30.3 pg 25.7-32.2 esfo=670) MEAN CORPUSCULAR HEMOGLOBIN CONC (BEAKER) (test 32.7 GM/DL 32.3-36.5 pbpc=212) RED CELL DISTRIBUTION WIDTH (BEAKER) (test 17.0 % 11.6-14.4 aadu=664) PLATELET COUNT (BEAKER) (test qrzf=221) 145 K/CU MM 150-450 MEAN PLATELET VOLUME (BEAKER) (test bndc=624) 9.9 fL 9.4-12.4 NUCLEATED RED BLOOD CELLS (BEAKER) (test 0 /100 WBC 0-0 ldhm=173) HEMOGLOBIN AND [id number] 23:35:00 Test Item Value Reference Range Comments HEMOGLOBIN (BEAKER) (test zaad=073) 7.0 GM/DL 13.7-17.5 HEMATOCRIT (BEAKER) (test vkmm=907) 20.9 % 40.1-51.0 POCT-GLUCOSE [id number] 22:21:00 Test Item Value Reference Range Comments POC-GLUCOSE METER (BEAKER) 247 mg/dL 70-110 TESTED AT [address] (test jekg=3956) [place] [id number] HEMOGLOBIN AND [id number] 20:11:00 Test Item Value Reference Range Comments HEMOGLOBIN (BEAKER) (test irju=243) 7.4 GM/DL 13.7-17.5 HEMATOCRIT (BEAKER) (test bwam=931) 22.3 % 40.1-51.0 POCT-GLUCOSE [id number] 17:06:00 Test Item Value Reference Range Comments POC-GLUCOSE METER (BEAKER) 243 mg/dL 70-110 TESTED AT [address] (test mglp=4015) [place] [id number] HEMOGLOBIN AND [id number] 16:12:00 Test Item Value Reference Range Comments HEMOGLOBIN (BEAKER) (test sorb=704) 7.8 GM/DL 13.7-17.5 HEMATOCRIT (BEAKER) (test vyod=071) 23.2 % 40.1-51.0 HEMOGLOBIN AND [id number] 12:25:00 Test Item Value Reference Range Comments HEMOGLOBIN (BEAKER) (test wggj=578) 8.4 GM/DL 13.7-17.5 HEMATOCRIT (BEAKER) (test ackc=183) 25.2 % 40.1-51.0 POCT-GLUCOSE [id number] 12:07:00 Test Item Value Reference Range Comments POC-GLUCOSE METER (BEAKER) 305 mg/dL 70-110 Notified RYLEE OROPEZA/TESTED AT [facility] (test bjnb=0273) [address] [facility] [place] [address] SODIUM, RANDOM [id number] 11:34:00 Test Item Value Reference Range Comments SODIUM URINE (BEAKER) (test digt=228) < meq/L Reference Range: No NormalsCREATININE, RANDOM [id number] 11:30:00 Test Item Value Reference Range Comments CREATININE URINE (BEAKER) (test dqph=064) 71.5 mg/dL Reference Range: No NormalsPROTEIN, RANDOM [id number] 11:30:00 Test Item Value Reference Range Comments PROTEIN, URINE (BEAKER) (test euda=6706) 10 mg/dL 0-14 HEMOGLOBIN AND [id number] 10:12:00 Test Item Value Reference Range Comments HEMOGLOBIN (BEAKER) (test gixo=463) 8.7 GM/DL 13.7-17.5 HEMATOCRIT (BEAKER) (test ejuc=746) 26.2 % 40.1-51.0 URINALYSIS W/ REFLEX URINE [id number] 08:51:00 Test Item Value Reference Range Comments COLOR (BEAKER) (test npxl=276) Light Yellow CLARITY (BEAKER) (test lqxb=106) Clear SPECIFIC GRAVITY UA (BEAKER) (test sfax=777) 1.014 1.001-1.035 PH UA (BEAKER) (test roza=292) 5.0 5.0-8.0 PROTEIN UA (BEAKER) (test fnlf=631) Negative Negative GLUCOSE UA (BEAKER) (test oxww=875) Negative Negative KETONES UA (BEAKER) (test tfkd=336) Negative Negative BILIRUBIN UA (BEAKER) (test nyrp=385) Negative Negative BLOOD UA (BEAKER) (test avse=870) Negative Negative NITRITE UA (BEAKER) (test sshd=977) Negative Negative LEUKOCYTE ESTERASE UA (BEAKER) (test eerj=110) Moderate Negative UROBILINOGEN UA (BEAKER) (test ahye=320) 0.2 mg/dL 0.2-1.0 RBC UA (BEAKER) (test bhfi=614) < /HPF WBC UA (BEAKER) (test ohxy=613) 9 /HPF BACTERIA (BEAKER) (test afkv=209) Occasional MUCUS (BEAKER) (test dpwb=9903) Occasional SQUAMOUS EPITHELIAL (BEAKER) (test mtsr=830) 1 /HPF SOURCE(BEAKER) (test emjo=6544) POCT-GLUCOSE [id number] 07:38:00 Test Item Value Reference Range Comments POC-GLUCOSE METER (BEAKER) 313 mg/dL 70-110 Notified RYLEE OROPEZA/TESTED AT [facility] (test bcoh=6085) [address] [facility] [address] [id number] 05:45:00 Test Item Value Reference Range Comments MAGNESIUM (BEAKER) (test olbx=720) 1.6 mg/dL 1.6-2.6 BASIC METABOLIC [id number] 05:45:00 Test Item Value Reference Range Comments SODIUM (BEAKER) (test 136 meq/L 136-145 oyso=646) POTASSIUM (BEAKER) (test 4.2 meq/L 3.5-5.1 kepx=735) CHLORIDE (BEAKER) (test 98 meq/L 98-107 uzdf=070) CO2 (BEAKER) (test 30 meq/L 22-29 dqec=877) BLOOD UREA NITROGEN 65 mg/dL 7-21 (BEAKER) (test frji=553) CREATININE (BEAKER) (test 1.68 mg/dL 0.57-1.25 mjcd=125) GLUCOSE RANDOM (BEAKER) 297 mg/dL 70-105 (test sayx=821) CALCIUM (BEAKER) (test 8.0 mg/dL 8.4-10.2 lpma=318) EGFR (BEAKER) (test 40 mL/min/1.73 sq m ESTIMATED GFR IS NOT rwgh=4474) ACCURATE CREATININE CLEARANCE IN PREDICTING GLOMERULAR FILTRATION RATE. ESTIMATED GFR IS NOT APPLICABLE FOR DIALYSIS PATIENTS. HEMOGLOBIN AND [id number] 05:01:00 Test Item Value Reference Range Comments HEMOGLOBIN (BEAKER) (test ortk=748) 9.0 GM/DL 13.7-17.5 HEMATOCRIT (BEAKER) (test qhql=631) 26.7 % 40.1-51.0 CBC (HEMOGRAM ONLY)[id number] 05:01:00 Test Item Value Reference Range Comments WHITE BLOOD CELL COUNT (BEAKER) (test jkvu=213) 18.2 K/ L 3.5-10.5 RED BLOOD CELL COUNT (BEAKER) (test rfwj=524) 2.98 M/ L 4.63-6.08 HEMOGLOBIN (BEAKER) (test xivp=537) 9.0 GM/DL 13.7-17.5 HEMATOCRIT (BEAKER) (test rljk=512) 26.7 % 40.1-51.0 MEAN CORPUSCULAR VOLUME (BEAKER) (test bkgx=926) 89.6 fL 79.0-92.2 MEAN CORPUSCULAR HEMOGLOBIN (BEAKER) (test 30.2 pg 25.7-32.2 srsm=480) MEAN CORPUSCULAR HEMOGLOBIN CONC (BEAKER) (test 33.7 GM/DL 32.3-36.5 mgny=639) RED CELL DISTRIBUTION WIDTH (BEAKER) (test 15.7 % 11.6-14.4 tetz=729) PLATELET COUNT (BEAKER) (test mbsl=708) 177 K/CU MM 150-450 MEAN PLATELET VOLUME (BEAKER) (test grzi=511) 9.9 fL 9.4-12.4 NUCLEATED RED BLOOD CELLS (BEAKER) (test 0 /100 WBC 0-0 xwsw=619) LACTIC ACID, [id number] 00:10:00 Test Item Value Reference Range Comments LACTATE BLOOD VENOUS (2) (BEAKER) (test 1.2 mmol/L 0.5-2.2 ltas=0081) BASIC METABOLIC [id number] 23:17:00 Test Item Value Reference Range Comments SODIUM (BEAKER) (test 138 meq/L 136-145 dcdg=672) POTASSIUM (BEAKER) (test 4.7 meq/L 3.5-5.1 gzqr=395) CHLORIDE (BEAKER) (test 99 meq/L 98-107 pkau=857) CO2 (BEAKER) (test 31 meq/L 22-29 iaqb=710) BLOOD UREA NITROGEN 67 mg/dL 7-21 (BEAKER) (test bvvn=542) CREATININE (BEAKER) (test 2.01 mg/dL 0.57-1.25 zyyf=411) GLUCOSE RANDOM (BEAKER) 252 mg/dL 70-105 (test gjty=907) CALCIUM (BEAKER) (test 7.8 mg/dL 8.4-10.2 cvod=740) EGFR (BEAKER) (test 33 mL/min/1.73 sq m ESTIMATED GFR IS NOT xlel=7121) ACCURATE CREATININE CLEARANCE IN PREDICTING GLOMERULAR FILTRATION RATE. ESTIMATED GFR IS NOT APPLICABLE FOR DIALYSIS PATIENTS. [id number] 23:12:00 Test Item Value Reference Range Comments PHOSPHORUS (BEAKER) (test eecg=963) 4.7 mg/dL 2.3-4.7 [id number] 23:12:00 Test Item Value Reference Range Comments MAGNESIUM (BEAKER) (test oytm=277) 1.7 mg/dL 1.6-2.6 HEPATIC FUNCTION [id number] 23:12:00 Test Item Value Reference Range Comments TOTAL PROTEIN (BEAKER) (test nuec=833) 5.7 gm/dL 6.0-8.3 ALBUMIN (BEAKER) (test yoia=1061) 3.1 g/dL 3.5-5.0 BILIRUBIN TOTAL (BEAKER) (test chvp=899) 0.3 mg/dL 0.2-1.2 BILIRUBIN DIRECT (BEAKER) (test gync=543) 0.1 mg/dL 0.1-0.5 ALKALINE PHOSPHATASE (BEAKER) (test vaut=494) 100 U/L 40-150 AST (SGOT) (BEAKER) (test sfrn=939) 20 U/L 5-34 ALT (SGPT) (BEAKER) (test yico=726) 18 U/L 6-55 PROTHROMBIN [id number] 23:04:00 Test Item Value Reference Range Comments PROTIME (BEAKER) (test hidg=446) 16.7 seconds 11.9-14.2 INR (BEAKER) (test hwrv=570) 1.4 <=5.9 Effective 12/26/2018: PT Reference Range ChangeNew: 11.9-14.2 Previous: 11.7- 14.7RECOMMENDED COUMADIN/WARFARIN INR THERAPY RANGESSTANDARD DOSE: 2.0-3.0 Includes: PROPHYLAXIS for venous thrombosis, systemic embolization; TREATMENT for venous thrombosis and/or pulmonary embolus.HIGH RISK: Target INR is2.5-3.5 for patients wiht mechanical heart valves.[id number] 23:04:00 Test Item Value Reference Range Comments FIBRINOGEN LEVEL (BEAKER) (test torx=807) 455 mg/dl 225-434 [id number] 23:04:00 Test Item Value Reference Range Comments PARTIAL THROMBOPLASTIN TIME (BEAKER) (test 30.2 seconds 22.5-36.0 mtmq=071) RAD, CHEST, 1 VIEW, NON [id number] 22:52:00Reason for exam:->central line placement r/o pneumoShould this be performed at the bedside?->YesFINAL REPORT EXAMINATION: AP PORTABLE CHEST RADIOGRAPH CLINICAL INDICATION: Central line placement IMPRESSION: Compared with 2018. Tip of the right jugular central line projects along the expected course of the superior vena cava. No evidence of a pneumothorax following line placement. Thin curvilinear opacities are again noted in both lungs. The morphology and distribution favor scarring and/or subsegmental atelectasis. No definite evidence of new parenchymal lung consolidation. Query a small stable left-sided pleural effusion. Heart is enlarged as before. Signed: Mickey Espinal [facility] Verified Date/Time: 01/12/2019 22:52:54 Reading Location: [address] [place] CBC W/PLT COUNT & AUTO [id number] 22:28:00 Test Item Value Reference Range Comments WHITE BLOOD CELL COUNT (BEAKER) (test pftt=378) 19.2 K/ L 3.5-10.5 RED BLOOD CELL COUNT (BEAKER) (test tbuc=370) 2.17 M/ L 4.63-6.08 HEMOGLOBIN (BEAKER) (test opzt=595) 6.6 GM/DL 13.7-17.5 HEMATOCRIT (BEAKER) (test bywb=527) 20.2 % 40.1-51.0 MEAN CORPUSCULAR VOLUME (BEAKER) (test mjgh=762) 93.1 fL 79.0-92.2 MEAN CORPUSCULAR HEMOGLOBIN (BEAKER) (test 30.4 pg 25.7-32.2 jpaq=497) MEAN CORPUSCULAR HEMOGLOBIN CONC (BEAKER) (test 32.7 GM/DL 32.3-36.5 fadb=034) RED CELL DISTRIBUTION WIDTH (BEAKER) (test 15.8 % 11.6-14.4 alcv=274) PLATELET COUNT (BEAKER) (test wyit=164) 253 K/CU MM 150-450 MEAN PLATELET VOLUME (BEAKER) (test sept=095) 10.4 fL 9.4-12.4 NUCLEATED RED BLOOD CELLS (BEAKER) (test 0 /100 WBC 0-0 gbkl=803) NEUTROPHILS RELATIVE PERCENT (BEAKER) (test 87 % ynwa=991) LYMPHOCYTES RELATIVE PERCENT (BEAKER) (test 7 % jxrs=351) MONOCYTES RELATIVE PERCENT (BEAKER) (test 6 % mani=626) EOSINOPHILS RELATIVE PERCENT (BEAKER) (test 0 % cumk=313) BASOPHILS RELATIVE PERCENT (BEAKER) (test 0 % ipcb=960) NEUTROPHILS ABSOLUTE COUNT (BEAKER) (test 16.66 K/ L 1.78-5.38 mzvl=660) LYMPHOCYTES ABSOLUTE COUNT (BEAKER) (test 1.30 K/ L 1.32-3.57 hbpo=556) MONOCYTES ABSOLUTE COUNT (BEAKER) (test 1.12 K/ L 0.30-0.82 llmf=718) EOSINOPHILS ABSOLUTE COUNT (BEAKER) (test 0.01 K/ L 0.04-0.54 bzpi=773) BASOPHILS ABSOLUTE COUNT (BEAKER) (test 0.03 K/ L 0.01-0.08 fpjq=020) IMMATURE GRANULOCYTES-RELATIVE PERCENT (BEAKER) 1 % 0-1 (test dmem=5320) HEMOGLOBIN AND [id number] 22:27:00 Test Item Value Reference Range Comments HEMOGLOBIN (BEAKER) (test enrj=504) 6.6 GM/DL 13.7-17.5 HEMATOCRIT (BEAKER) (test gwjx=922) 20.2 % 40.1-51.0 BLOOD [id number] 15:07:00 Test Item Value Reference Range Comments CULTURE (BEAKER) (test ebuu=4797) No growth in [address], HEART, [id number] 15:54:00Reason for exam:->watchman work up; afibAddendum BeginsREPORT STATUS:A Addendum: I agree with the previously described non vascular findings. Signed: Maria Del Carmen Castro MDReport Verified Date/Time: 12/28/2018 15:54:55 Reading Location: [facility] P048 Angio Body Reading RoomAddendum EndsFINAL REPORT CT [...] by the interpreting physician using an independent (Anybots) workstation. Please refer to the contrast sheet [...] the WATCHMAN procedure are as follows (J Saw et al J CV EP 2016 ): [...] be dictated regarding the non-vascular findingsby the Quality Control Engineer Radiologist. Signed: Mo Saldana MDReport Verified Date/Time: 12/27/2018 12:57:49 Reading Location: [place] [address] Cardiology MRI BLOOD [id number] 15:16:00 Test Item Value Reference Range Comments CULTURE (BEAKER) From Aerobic Bottle Only (test pjxp=4105) Coagulase negative Staphylococcus GRAM STAIN RESULT From aerobic bottle (BEAKER) (test only: gram positive fvtd=9024) cocci in clusters HEMOGLOBIN AND [id number] 12:30:00 Test Item Value Reference Range Comments HEMOGLOBIN (BEAKER) (test oekh=241) 9.6 GM/DL 13.7-17.5 HEMATOCRIT (BEAKER) (test ppkp=428) 30.0 % 40.1-51.0 POCT-GLUCOSE [id number] 11:11:00 Test Item Value Reference Range Comments POC-GLUCOSE METER (BEAKER) 178 mg/dL 70-110 TESTED AT [address] (test bkuk=4918) [place] [id number] POCT-GLUCOSE [id number] 08:04:00 Test Item Value Reference Range Comments POC-GLUCOSE METER (BEAKER) 77 mg/dL 70-110 TESTED AT [address] (test xpki=5040) [place] [id number] POCT-GLUCOSE [id number] 23:19:00 Test Item Value Reference Range Comments POC-GLUCOSE METER (BEAKER) 150 mg/dL 70-110 TESTED AT [address] (test kawu=4666) [place] [id number] POCT-GLUCOSE [id number] 18:31:00 Test Item Value Reference Range Comments POC-GLUCOSE METER (BEAKER) 154 mg/dL 70-110 TESTED AT [address] (test kupy=0694) [place] [address] HEMOGLOBIN AND [id number] 05:20:00 Test Item Value Reference Range Comments HEMOGLOBIN (BEAKER) (test vfxa=648) 9.0 GM/DL 13.7-17.5 HEMATOCRIT (BEAKER) (test ctzc=760) 27.1 % 40.1-51.0 HEMOGLOBIN AND [id number] 23:18:00 Test Item Value Reference Range Comments HEMOGLOBIN (BEAKER) (test nnpm=543) 8.9 GM/DL 13.7-17.5 HEMATOCRIT (BEAKER) (test jhnu=100) 27.6 % 40.1-51.0 POCT-GLUCOSE [id number] 20:22:00 Test Item Value Reference Range Comments POC-GLUCOSE METER (BEAKER) 209 mg/dL 70-110 TESTED AT [facility] [address] (test wodk=8629) [facility] [address] HEMOGLOBIN AND [id number] 19:39:00 Test Item Value Reference Range Comments HEMOGLOBIN (BEAKER) (test iuow=907) 8.6 GM/DL 13.7-17.5 HEMATOCRIT (BEAKER) (test fkzl=770) 26.8 % 40.1-51.0 TISSUE [id number] 17:21:00Surgical Pathology Report Case: [id number] Authorizing Provider: Edel Washington MD Collected: 12/23/2018 1526 Ordering Location: [place] [address] ICU Received: 12/25/2018 0859 Pathologist: Arthur Brown [...] TO FOLLOW. Signing Pathologist Direct Phone Line: [phone], [phone], [id number] and postop diagnosis: GI bleedingRandom body and [...] evaluated Immunohistochemistry technical testing was performed at [facility], Pathology Laboratory where it was [...] to perform high complexityclinical laboratory testing.HEMOGLOBIN AND [id number] 17:20:00 Test Item Value Reference Range Comments HEMOGLOBIN (BEAKER) (test uqta=822) 8.6 GM/DL 13.7-17.5 HEMATOCRIT (BEAKER) (test xjme=148) 26.5 % 40.1-51.0 POCT-GLUCOSE [id number] 17:05:00 Test Item Value Reference Range Comments POC-GLUCOSE METER (BEAKER) 147 mg/dL 70-110 TESTED AT [facility] [address] [facility] (test wnku=3396) [facility] [address] HEMOGLOBIN AND [id number] 12:16:00 Test Item Value Reference Range Comments HEMOGLOBIN (BEAKER) (test keqb=032) 8.5 GM/DL 13.7-17.5 HEMATOCRIT (BEAKER) (test lzew=822) 25.3 % 40.1-51.0 POCT-GLUCOSE [id number] 11:51:00 Test Item Value Reference Range Comments POC-GLUCOSE METER (BEAKER) 199 mg/dL 70-110 TESTED AT [facility] [address] [place] [address] (test trrk=1065) [facility] [address] HEMOGLOBIN AND [id number] 09:54:00 Test Item Value Reference Range Comments HEMOGLOBIN (BEAKER) (test olrb=319) 8.5 GM/DL 13.7-17.5 HEMATOCRIT (BEAKER) (test wbjv=671) 26.3 % 40.1-51.0 POCT-GLUCOSE [id number] 07:39:00 Test Item Value Reference Range Comments POC-GLUCOSE METER (BEAKER) 142 mg/dL 70-110 TESTED AT [address] (test eveq=0603) [facility] [address] CBC W/PLT COUNT & AUTO [id number] 04:25:00 Test Item Value Reference Range Comments WHITE BLOOD CELL COUNT (BEAKER) (test mmpp=061) 5.1 K/ L 3.5-10.5 RED BLOOD CELL COUNT (BEAKER) (test jveb=235) 2.73 M/ L 4.63-6.08 HEMOGLOBIN (BEAKER) (test ckqh=279) 8.3 GM/DL 13.7-17.5 HEMATOCRIT (BEAKER) (test bqty=227) 25.1 % 40.1-51.0 MEAN CORPUSCULAR VOLUME (BEAKER) (test ouyj=336) 91.9 fL 79.0-92.2 MEAN CORPUSCULAR HEMOGLOBIN (BEAKER) (test 30.4 pg 25.7-32.2 ugby=386) MEAN CORPUSCULAR HEMOGLOBIN CONC (BEAKER) (test 33.1 GM/DL 32.3-36.5 vhmq=516) RED CELL DISTRIBUTION WIDTH (BEAKER) (test 15.3 % 11.6-14.4 vayy=327) PLATELET COUNT (BEAKER) (test oscm=816) 191 K/CU MM 150-450 MEAN PLATELET VOLUME (BEAKER) (test pybt=229) 10.0 fL 9.4-12.4 NUCLEATED RED BLOOD CELLS (BEAKER) (test 0 /100 WBC 0-0 ohlk=005) NEUTROPHILS RELATIVE PERCENT (BEAKER) (test 67 % hrzy=598) LYMPHOCYTES RELATIVE PERCENT (BEAKER) (test 20 % xxca=027) MONOCYTES RELATIVE PERCENT (BEAKER) (test 10 % rtaa=660) EOSINOPHILS RELATIVE PERCENT (BEAKER) (test 2 % btou=512) BASOPHILS RELATIVE PERCENT (BEAKER) (test 0 % anjv=156) NEUTROPHILS ABSOLUTE COUNT (BEAKER) (test 3.42 K/ L 1.78-5.38 wsiv=043) LYMPHOCYTES ABSOLUTE COUNT (BEAKER) (test 1.00 K/ L 1.32-3.57 ujlu=839) MONOCYTES ABSOLUTE COUNT (BEAKER) (test 0.51 K/ L 0.30-0.82 snlb=933) EOSINOPHILS ABSOLUTE COUNT (BEAKER) (test 0.10 K/ L 0.04-0.54 yiqb=100) BASOPHILS ABSOLUTE COUNT (BEAKER) (test 0.02 K/ L 0.01-0.08 bapc=572) IMMATURE GRANULOCYTES-RELATIVE PERCENT (BEAKER) 0 % 0-1 (test opfb=2523) CBC W/PLT COUNT & AUTO [id number] 01:49:00 Test Item Value Reference Range Comments WHITE BLOOD CELL COUNT (BEAKER) (test qwab=119) 5.0 K/ L 3.5-10.5 RED BLOOD CELL COUNT (BEAKER) (test wupm=070) 2.73 M/ L 4.63-6.08 HEMOGLOBIN (BEAKER) (test uvdm=843) 8.2 GM/DL 13.7-17.5 HEMATOCRIT (BEAKER) (test kfnk=911) 25.1 % 40.1-51.0 MEAN CORPUSCULAR VOLUME (BEAKER) (test hyzu=126) 91.9 fL 79.0-92.2 MEAN CORPUSCULAR HEMOGLOBIN (BEAKER) (test 30.0 pg 25.7-32.2 jdye=691) MEAN CORPUSCULAR HEMOGLOBIN CONC (BEAKER) (test 32.7 GM/DL 32.3-36.5 eyzn=620) RED CELL DISTRIBUTION WIDTH (BEAKER) (test 15.5 % 11.6-14.4 wiyz=860) PLATELET COUNT (BEAKER) (test dpmk=069) 172 K/CU MM 150-450 MEAN PLATELET VOLUME (BEAKER) (test ybcn=759) 10.2 fL 9.4-12.4 NUCLEATED RED BLOOD CELLS (BEAKER) (test 0 /100 WBC 0-0 brev=589) NEUTROPHILS RELATIVE PERCENT (BEAKER) (test 70 % xjwp=825) LYMPHOCYTES RELATIVE PERCENT (BEAKER) (test 19 % htfp=508) MONOCYTES RELATIVE PERCENT (BEAKER) (test 9 % rkfk=692) EOSINOPHILS RELATIVE PERCENT (BEAKER) (test 2 % lajy=764) BASOPHILS RELATIVE PERCENT (BEAKER) (test 0 % wksx=150) NEUTROPHILS ABSOLUTE COUNT (BEAKER) (test 3.50 K/ L 1.78-5.38 rftc=566) LYMPHOCYTES ABSOLUTE COUNT (BEAKER) (test 0.94 K/ L 1.32-3.57 wxhs=052) MONOCYTES ABSOLUTE COUNT (BEAKER) (test 0.45 K/ L 0.30-0.82 czns=051) EOSINOPHILS ABSOLUTE COUNT (BEAKER) (test 0.08 K/ L 0.04-0.54 rjbw=609) BASOPHILS ABSOLUTE COUNT (BEAKER) (test 0.02 K/ L 0.01-0.08 rguw=525) IMMATURE GRANULOCYTES-RELATIVE PERCENT (BEAKER) 0 % 0-1 (test rgel=7970) HEMOGLOBIN AND [id number] 23:44:00 Test Item Value Reference Range Comments HEMOGLOBIN (BEAKER) (test bgmt=180) 6.7 GM/DL 13.7-17.5 HEMATOCRIT (BEAKER) (test xsjm=238) 20.9 % 40.1-51.0 POCT-GLUCOSE [id number] 21:22:00 Test Item Value Reference Range Comments POC-GLUCOSE METER (BEAKER) 256 mg/dL 70-110 TESTED AT [address] (test tmki=9835) [place] [id number] HEMOGLOBIN AND [id number] 20:41:00 Test Item Value Reference Range Comments HEMOGLOBIN (BEAKER) (test shst=824) 8.1 GM/DL 13.7-17.5 HEMATOCRIT (BEAKER) (test hnmz=002) 24.6 % 40.1-51.0 POCT-GLUCOSE [id number] 17:16:00 Test Item Value Reference Range Comments POC-GLUCOSE METER (BEAKER) 207 mg/dL 70-110 TESTED AT [address] (test gmck=5322) [place] [id number] HEMOGLOBIN AND [id number] 15:43:00 Test Item Value Reference Range Comments HEMOGLOBIN (BEAKER) (test wzwz=996) 8.9 GM/DL 13.7-17.5 HEMATOCRIT (BEAKER) (test uzeg=397) 28.5 % 40.1-51.0 HEMOGLOBIN AND [id number] 11:57:00 Test Item Value Reference Range Comments HEMOGLOBIN (BEAKER) (test eiho=981) 7.9 GM/DL 13.7-17.5 HEMATOCRIT (BEAKER) (test tkuh=277) 24.7 % 40.1-51.0 POCT-GLUCOSE [id number] 11:38:00 Test Item Value Reference Range Comments POC-GLUCOSE METER (BEAKER) 147 mg/dL 70-110 TESTED AT [address] (test rbxc=7740) [place] [id number] POCT-GLUCOSE [id number] 07:31:00 Test Item Value Reference Range Comments POC-GLUCOSE METER (BEAKER) 144 mg/dL 70-110 TESTED AT [address] (test bzri=1102) [facility] [address] COMPREHENSIVE METABOLIC [id number] 06:22:00 Test Item Value Reference Range Comments TOTAL PROTEIN (BEAKER) 5.3 gm/dL 6.0-8.3 (test aveg=497) ALBUMIN (BEAKER) (test 2.7 g/dL 3.5-5.0 ulhk=4282) ALKALINE PHOSPHATASE 65 U/L 40-150 (BEAKER) (test yzoj=607) BILIRUBIN TOTAL (BEAKER) 0.3 mg/dL 0.2-1.2 (test pwid=628) SODIUM (BEAKER) (test 139 meq/L 136-145 fjdj=864) POTASSIUM (BEAKER) (test 3.9 meq/L 3.5-5.1 ircb=145) CHLORIDE (BEAKER) (test 101 meq/L 98-107 zxnn=966) CO2 (BEAKER) (test 34 meq/L 22-29 stek=885) BLOOD UREA NITROGEN 52 mg/dL 7-21 (BEAKER) (test yrjm=060) CREATININE (BEAKER) (test 0.99 mg/dL 0.57-1.25 tmdt=213) GLUCOSE RANDOM (BEAKER) 138 mg/dL 70-105 (test wkbz=064) CALCIUM (BEAKER) (test 8.3 mg/dL 8.4-10.2 kvag=475) AST (SGOT) (BEAKER) (test 31 U/L 5-34 akyl=388) ALT (SGPT) (BEAKER) (test 61 U/L 6-55 dblx=555) EGFR (BEAKER) (test mL/min/1.73 sq m INSUFFICIENT CLINICAL DATA hlbu=5653) TO CALCULATE ESTIMATED GFR. HEMOGLOBIN AND [id number] 06:02:00 Test Item Value Reference Range Comments HEMOGLOBIN (BEAKER) (test qcfz=917) 8.1 GM/DL 13.7-17.5 HEMATOCRIT (BEAKER) (test ovur=537) 25.1 % 40.1-51.0 CBC W/PLT COUNT & AUTO [id number] 06:02:00 Test Item Value Reference Range Comments WHITE BLOOD CELL COUNT (BEAKER) (test dbsf=556) 5.3 K/ L 3.5-10.5 RED BLOOD CELL COUNT (BEAKER) (test hhmu=631) 2.69 M/ L 4.63-6.08 HEMOGLOBIN (BEAKER) (test wofe=239) 8.1 GM/DL 13.7-17.5 HEMATOCRIT (BEAKER) (test cnrj=953) 25.1 % 40.1-51.0 MEAN CORPUSCULAR VOLUME (BEAKER) (test ukrc=992) 93.3 fL 79.0-92.2 MEAN CORPUSCULAR HEMOGLOBIN (BEAKER) (test 30.1 pg 25.7-32.2 pjqo=788) MEAN CORPUSCULAR HEMOGLOBIN CONC (BEAKER) (test 32.3 GM/DL 32.3-36.5 ftuk=242) RED CELL DISTRIBUTION WIDTH (BEAKER) (test 15.9 % 11.6-14.4 xwff=462) PLATELET COUNT (BEAKER) (test wiwv=007) 165 K/CU MM 150-450 MEAN PLATELET VOLUME (BEAKER) (test jzkv=325) 10.4 fL 9.4-12.4 NUCLEATED RED BLOOD CELLS (BEAKER) (test 0 /100 WBC 0-0 jbrk=814) NEUTROPHILS RELATIVE PERCENT (BEAKER) (test 63 % rmwi=168) LYMPHOCYTES RELATIVE PERCENT (BEAKER) (test 20 % dgnw=507) MONOCYTES RELATIVE PERCENT (BEAKER) (test 12 % rfpm=519) EOSINOPHILS RELATIVE PERCENT (BEAKER) (test 4 % nwkd=626) BASOPHILS RELATIVE PERCENT (BEAKER) (test 0 % phft=473) NEUTROPHILS ABSOLUTE COUNT (BEAKER) (test 3.34 K/ L 1.78-5.38 xfpz=655) LYMPHOCYTES ABSOLUTE COUNT (BEAKER) (test 1.05 K/ L 1.32-3.57 llpw=165) MONOCYTES ABSOLUTE COUNT (BEAKER) (test 0.64 K/ L 0.30-0.82 gukl=725) EOSINOPHILS ABSOLUTE COUNT (BEAKER) (test 0.19 K/ L 0.04-0.54 nuvd=749) BASOPHILS ABSOLUTE COUNT (BEAKER) (test 0.02 K/ L 0.01-0.08 woxt=238) IMMATURE GRANULOCYTES-RELATIVE PERCENT (BEAKER) 0 % 0-1 (test xjvv=8971) HEMOGLOBIN AND [id number] 00:23:00 Test Item Value Reference Range Comments HEMOGLOBIN (BEAKER) (test zeqz=578) 8.2 GM/DL 13.7-17.5 HEMATOCRIT (BEAKER) (test nsmr=557) 25.4 % 40.1-51.0 POCT-GLUCOSE [id number] 22:10:00 Test Item Value Reference Range Comments POC-GLUCOSE METER (BEAKER) 161 mg/dL 70-110 TESTED AT [address] (test qokm=6794) [place] [address] POCT-GLUCOSE [id number] 16:55:00 Test Item Value Reference Range Comments POC-GLUCOSE METER (BEAKER) 238 mg/dL 70-110 TESTED AT [address] (test snvm=1164) [place] [address] HEMOGLOBIN AND [id number] 14:42:00 Test Item Value Reference Range Comments HEMOGLOBIN (BEAKER) (test wxoq=367) 6.9 GM/DL 13.7-17.5 HEMATOCRIT (BEAKER) (test oenk=535) 21.7 % 40.1-51.0 POCT-GLUCOSE [id number] 11:42:00 Test Item Value Reference Range Comments POC-GLUCOSE METER (BEAKER) 288 mg/dL 70-110 TESTED AT [address] (test elfd=0383) [place] [address] POCT-GLUCOSE [id number] 09:30:00 Test Item Value Reference Range Comments POC-GLUCOSE METER (BEAKER) 264 mg/dL 70-110 TESTED AT [facility] [address] (test vrub=4898) [facility] [address] HEMOGLOBIN AND [id number] 09:11:00 Test Item Value Reference Range Comments HEMOGLOBIN (BEAKER) (test aneq=447) 7.2 GM/DL 13.7-17.5 HEMATOCRIT (BEAKER) (test bvhh=896) 22.3 % 40.1-51.0 BLOOD CULTURE IDENTIFICATION [id number] 08:07:00 Test Item Value Reference Range Comments LISTERIA MONOCYTOGENES (test Not detected Not detected rknv=5058586) STAPHYLOCOCCUS (test Detected Not detected Coagulase negative Staph xkyg=5840765) species (CoNS)- methicillin resistantFirst-line therapy: Vancomycin MecA DETECTED Possible contamination. The likelihood of pathogenicity is increased if the organism is observed in multiple blood cultures obtained from separate venipunctures. Reference Range: Not Detected STAPHYLOCOCCUS AUREUS (test Not detected Not detected xpkr=1737229) STREPTOCOCCUS (test Not detected Not detected gtaq=6691711) STREPTOCOCCUS AGALACTIAE (GROUP Not detected Not detected B) (test hfdg=3055409) STREPTOCOCCUS PNEUMONIAE (test Not detected Not detected bsyd=9167494) STREPTOCOCCUS PYOGENES (GROUP Not detected Not detected A) (test nuqd=4357073) ACINETOBACTER BAUMANNII (test Not detected Not detected ghko=0362190) HAEMOPHILUS INFLUENZAE (test Not detected Not detected lgmo=8053268) NEISSERIA MENINGITIDIS (test Not detected Not detected cgqw=8803499) ENTEROBACTERIACEAE (test Not detected Not detected oilf=3996431) ENTEROBACTER CLOACOE COMPLEX Not detected Not detected (test ixip=7221278) KLEBSIELLA OXYTOCA (test Not detected Not detected qduz=7148475) KLEBSIELLA PNEUMONIAE (test Not detected Not detected opak=0924) PROTEUS (test hyhd=9164093) Not detected Not detected SERRATIA MARCESCENS (test Not detected Not detected latr=4530937) SHARAD ALBICANS (test Not detected Not detected jxsy=5211507) SHARAD GLABRATA (test Not detected Not detected mjcm=2696703) SHARAD KRUSEI (test Not detected Not detected affs=7026644) SHARAD PARAPSILOSIS (test Not detected Not detected dgyg=6788415) SHARAD TROPICALIS (test Not detected Not detected hzjt=1967470) ESCHERICHIA COLI (test Not detected Not detected lwoa=7067437) METHICILLIN-RESISTANCE GENE Detected Not detected (test luvz=0567160) VANCOMYCIN-RESISTANCE GENE Not detected (test igrh=5992295) CARBAPENEM-RESISTANCE GENE Not detected (test yzlu=1393759) ENTEROCOCCUS-BEAKER (test Not detected Not detected gygl=5562984) PSEUDOMONAS AERUGINOSA-BEAKER Not detected Not detected (test ugai=4415439) Other bacteria and resistance markers not targeted by this PCR panel cannot be excluded; therefore clinical correlation and follow up of serology, culture results, and other molecular studies is required. The results are not intended to be used as the sole means for clinical diagnosis or patient management decisions. This sample was tested at the [facility] using the [employer] Blood Culture ID Panel. It is FDA cleared and has been verified and approved by the [facility] for clinical use. This laboratory is CLIA-certified and College ofAmerican Pathologists (CAP)-accredited to perform high complexity testing.COMPREHENSIVE METABOLIC [id number] 06:41:00 Test Item Value Reference Range Comments TOTAL PROTEIN (BEAKER) 5.4 gm/dL 6.0-8.3 (test gqiw=259) ALBUMIN (BEAKER) (test 2.8 g/dL 3.5-5.0 uuax=2196) ALKALINE PHOSPHATASE 77 U/L 40-150 (BEAKER) (test zqni=037) BILIRUBIN TOTAL (BEAKER) 0.3 mg/dL 0.2-1.2 (test jauc=329) SODIUM (BEAKER) (test 138 meq/L 136-145 lvjr=681) POTASSIUM (BEAKER) (test 4.4 meq/L 3.5-5.1 trtd=896) CHLORIDE (BEAKER) (test 100 meq/L 98-107 ieby=048) CO2 (BEAKER) (test 31 meq/L 22-29 rcrz=165) BLOOD UREA NITROGEN 75 mg/dL 7-21 (BEAKER) (test xcku=244) CREATININE (BEAKER) (test 1.41 mg/dL 0.57-1.25 xris=007) GLUCOSE RANDOM (BEAKER) 236 mg/dL 70-105 (test zbgg=735) CALCIUM (BEAKER) (test 8.3 mg/dL 8.4-10.2 fzgg=457) AST (SGOT) (BEAKER) (test 37 U/L 5-34 mkso=270) ALT (SGPT) (BEAKER) (test 59 U/L 6-55 owue=151) EGFR (BEAKER) (test mL/min/1.73 sq m INSUFFICIENT CLINICAL DATA ifex=0473) TO CALCULATE ESTIMATED GFR. CBC W/PLT COUNT & AUTO [id number] 06:08:00 Test Item Value Reference Range Comments WHITE BLOOD CELL COUNT (BEAKER) (test mraj=677) 10.3 K/ L 3.5-10.5 RED BLOOD CELL COUNT (BEAKER) (test baln=059) 2.50 M/ L 4.63-6.08 HEMOGLOBIN (BEAKER) (test tmzu=197) 7.7 GM/DL 13.7-17.5 HEMATOCRIT (BEAKER) (test nelm=281) 23.0 % 40.1-51.0 MEAN CORPUSCULAR VOLUME (BEAKER) (test spld=242) 92.0 fL 79.0-92.2 MEAN CORPUSCULAR HEMOGLOBIN (BEAKER) (test 30.8 pg 25.7-32.2 ezzp=871) MEAN CORPUSCULAR HEMOGLOBIN CONC (BEAKER) (test 33.5 GM/DL 32.3-36.5 fexw=369) RED CELL DISTRIBUTION WIDTH (BEAKER) (test 15.9 % 11.6-14.4 wokc=619) PLATELET COUNT (BEAKER) (test pzvm=201) 206 K/CU MM 150-450 MEAN PLATELET VOLUME (BEAKER) (test vrrx=801) 11.0 fL 9.4-12.4 NUCLEATED RED BLOOD CELLS (BEAKER) (test 0 /100 WBC 0-0 oatr=113) NEUTROPHILS RELATIVE PERCENT (BEAKER) (test 77 % ieka=998) LYMPHOCYTES RELATIVE PERCENT (BEAKER) (test 10 % qfnr=662) MONOCYTES RELATIVE PERCENT (BEAKER) (test 12 % henk=587) EOSINOPHILS RELATIVE PERCENT (BEAKER) (test 1 % bibi=617) BASOPHILS RELATIVE PERCENT (BEAKER) (test 0 % amxi=555) NEUTROPHILS ABSOLUTE COUNT (BEAKER) (test 7.93 K/ L 1.78-5.38 iajs=959) LYMPHOCYTES ABSOLUTE COUNT (BEAKER) (test 0.97 K/ L 1.32-3.57 lqzu=040) MONOCYTES ABSOLUTE COUNT (BEAKER) (test 1.18 K/ L 0.30-0.82 nzxv=698) EOSINOPHILS ABSOLUTE COUNT (BEAKER) (test 0.09 K/ L 0.04-0.54 qrly=451) BASOPHILS ABSOLUTE COUNT (BEAKER) (test 0.04 K/ L 0.01-0.08 klfd=480) IMMATURE GRANULOCYTES-RELATIVE PERCENT (BEAKER) 0 % 0-1 (test vzle=1462) POCT-GLUCOSE [id number] 05:51:00 Test Item Value Reference Range Comments POC-GLUCOSE METER (BEAKER) 272 mg/dL 70-110 TESTED AT [address] (test jujz=6376) [place] [address] HEMOGLOBIN AND [id number] 02:14:00 Test Item Value Reference Range Comments HEMOGLOBIN (BEAKER) (test sqsi=655) 8.1 GM/DL 13.7-17.5 HEMATOCRIT (BEAKER) (test cudv=931) 24.4 % 40.1-51.0 POCT-GLUCOSE [id number] 22:55:00 Test Item Value Reference Range Comments POC-GLUCOSE METER (BEAKER) 226 mg/dL 70-110 TESTED AT [address] (test yjhe=9821) [place] [address] HEMOGLOBIN AND [id number] 21:34:00 Test Item Value Reference Range Comments HEMOGLOBIN (BEAKER) (test zjsj=502) 8.6 GM/DL 13.7-17.5 HEMATOCRIT (BEAKER) (test sofu=324) 25.7 % 40.1-51.0 POCT-GLUCOSE [id number] 18:21:00 Test Item Value Reference Range Comments POC-GLUCOSE METER (BEAKER) 220 mg/dL 70-110 TESTED AT [address] (test vdfl=8966) [place] [address] BASIC METABOLIC [id number] 16:32:00 Test Item Value Reference Range Comments SODIUM (BEAKER) (test 138 meq/L 136-145 bjnm=345) POTASSIUM (BEAKER) (test 4.8 meq/L 3.5-5.1 uvvv=697) CHLORIDE (BEAKER) (test 98 meq/L 98-107 haqb=537) CO2 (BEAKER) (test 31 meq/L 22-29 ipkl=697) BLOOD UREA NITROGEN 79 mg/dL 7-21 (BEAKER) (test onki=529) CREATININE (BEAKER) (test 1.65 mg/dL 0.57-1.25 msah=248) GLUCOSE RANDOM (BEAKER) 295 mg/dL 70-105 (test wanp=944) CALCIUM (BEAKER) (test 8.3 mg/dL 8.4-10.2 ggkz=340) EGFR (BEAKER) (test mL/min/1.73 sq m INSUFFICIENT CLINICAL DATA kren=3446) TO CALCULATE ESTIMATED GFR. HEMOGLOBIN AND [id number] 16:20:00 Test Item Value Reference Range Comments HEMOGLOBIN (BEAKER) (test jnbg=829) 9.0 GM/DL 13.7-17.5 HEMATOCRIT (BEAKER) (test irfh=022) 27.1 % 40.1-51.0 TROPONIN [id number] 12:53:00 Test Item Value Reference Range Comments TROPONIN I (BEAKER) (test qmcy=280) < ng/mL 0.00-0.03 Troponin I (TnI) levels [...] acidosis, acute neurological disease, and persistent tachyarrhythmia.POCT-GLUCOSE [id number] 12:47:00 Test Item Value Reference Range Comments POC-GLUCOSE METER (BEAKER) 180 mg/dL 70-110 TESTED AT [facility] [address] [facility] (test husg=1298) [facility] [address] HEMOGLOBIN AND [id number] 12:33:00 Test Item Value Reference Range Comments HEMOGLOBIN (BEAKER) (test lewu=779) 9.7 GM/DL 13.7-17.5 HEMATOCRIT (BEAKER) (test xldu=626) 28.9 % 40.1-51.0 TROPONIN [id number] 07:18:00 Test Item Value Reference Range Comments TROPONIN I (BEAKER) (test sruq=994) 0.02 ng/mL 0.00-0.03 Troponin I (TnI) levels [...] disease, and persistent tachyarrhythmia.RAD, ABDOMEN/KUB, 1 VIEW [id number] 07 :11:00Reason for exam:->abd painShould this be [...] MDReport Verified Date/Time: 12/23/2018 07:11:30 Reading Location: [facility] C013V Neuro Reading Room [id number] 07:10:00 Test Item Value Reference Range Comments PHOSPHORUS (BEAKER) (test qytx=129) 4.8 mg/dL 2.3-4.7 [id number] 07:10:00 Test Item Value Reference Range Comments MAGNESIUM (BEAKER) (test qfxh=499) 2.1 mg/dL 1.6-2.6 RAD, CHEST, 1 VIEW, NON [id number] 07:08:00Reason for exam:-> hypotensionShould this be performed at the bedside?->YesFINAL REPORT INDICATION: hypotension COMPARISON:December 06 TECHNIQUE: Chest radiograph, single view, portable technique. FINDINGS / IMPRESSION: Lungs are clear. Heart shadow normal insize for portable technique. No pneumothorax. Osseous structures unremarkable. Signed: Dereje Scruggs Verified Date /Time: 12/23/2018 07:08:21 Reading Location: [facility] C013Y CT Body Reading Room BLOOD GAS, [id number] 06:57:00 Test Item Value Reference Range Comments PH ARTERIAL (BEAKER) (test xtbn=153) 7.39 7.35-7.45 PCO2 ARTERIAL (BEAKER) (test lmvj=346) 50 mmHg 35-45 PO2 ARTERIAL (BEAKER) (test yilq=321) 171 mmHg 80-90 O2 SATURATION ARTERIAL (BEAKER) (test cgph=978) 99.1 % 96.0-97.0 HCO3 ARTERIAL (BEAKER) (test rnfi=121) 30 mmol/L 21-29 BASE EXCESS ARTERIAL (BEAKER) (test utmj=664) 4.3 mmol/L -2.0-3.0 PATIENT TEMPERATURE (BEAKER) (test pgtk=5389) 37.0 C FIO2 (BEAKER) (test vhbc=5421) 32.0 % TROPONIN [id number] 06:23:00 Test Item Value Reference Range Comments TROPONIN I (BEAKER) (test kzbw=071) < ng/mL 0.00-0.03 Troponin I (TnI) levels [...] failure, acidosis, acute neurological disease, and persistent tachyarrhythmia.[id number] 06:18:00 Test Item Value Reference Range Comments FIBRINOGEN LEVEL (BEAKER) (test qess=773) 383 mg/dl 225-434 PROTHROMBIN [id number] 06:17:00 Test Item Value Reference Range Comments PROTIME (BEAKER) (test shtg=084) 15.6 seconds 11.7-14.7 INR (BEAKER) (test oinu=514) 1.3 <=5.9 RECOMMENDED COUMADIN/WARFARIN INR THERAPY RANGESSTANDARD DOSE: 2.0 - 3.0 Includes: PROPHYLAXIS forvenous thrombosis, systemic embolization; TREATMENT for venous thrombosis and/or pulmonary embolus.HIGH RISK: Target INR is 2.5-3.5 for patients with mechanical heart valves.COMPREHENSIVE METABOLIC [id number] 06:16:00 Test Item Value Reference Range Comments TOTAL PROTEIN (BEAKER) 6.0 gm/dL 6.0-8.3 (test otrl=248) ALBUMIN (BEAKER) (test 3.2 g/dL 3.5-5.0 ahar=7009) ALKALINE PHOSPHATASE 98 U/L 40-150 (BEAKER) (test fzje=972) BILIRUBIN TOTAL (BEAKER) 0.3 mg/dL 0.2-1.2 (test yxma=960) SODIUM (BEAKER) (test 136 meq/L 136-145 arfx=546) POTASSIUM (BEAKER) (test 5.4 meq/L 3.5-5.1 tjri=099) CHLORIDE (BEAKER) (test 98 meq/L 98-107 lnhs=560) CO2 (BEAKER) (test 27 meq/L 22-29 japv=452) BLOOD UREA NITROGEN 78 mg/dL 7-21 (BEAKER) (test htxl=674) CREATININE (BEAKER) (test 1.58 mg/dL 0.57-1.25 xcfh=904) GLUCOSE RANDOM (BEAKER) 262 mg/dL 70-105 (test bpfg=688) CALCIUM (BEAKER) (test 8.3 mg/dL 8.4-10.2 auyg=414) AST (SGOT) (BEAKER) (test 22 U/L 5-34 jipr=121) ALT (SGPT) (BEAKER) (test 22 U/L 6-55 lnah=959) EGFR (BEAKER) (test mL/min/1.73 sq m INSUFFICIENT CLINICAL DATA facq=0086) TO CALCULATE ESTIMATED GFR. LACTIC ACID, [id number] 06:06:00 Test Item Value Reference Range Comments LACTATE BLOOD VENOUS (2) (BEAKER) (test 2.6 mmol/L 0.5-2.2 oqma=5164) CBC W/PLT COUNT & AUTO [id number] 06:02:00 Test Item Value Reference Range Comments WHITE BLOOD CELL COUNT (BEAKER) (test bxsh=739) 18.1 K/ L 3.5-10.5 RED BLOOD CELL COUNT (BEAKER) (test zlcu=493) 2.26 M/ L 4.63-6.08 HEMOGLOBIN (BEAKER) (test nbvu=009) 6.6 GM/DL 13.7-17.5 HEMATOCRIT (BEAKER) (test fixt=349) 21.1 % 40.1-51.0 MEAN CORPUSCULAR VOLUME (BEAKER) (test jwip=623) 93.4 fL 79.0-92.2 MEAN CORPUSCULAR HEMOGLOBIN (BEAKER) (test 29.2 pg 25.7-32.2 qtst=046) MEAN CORPUSCULAR HEMOGLOBIN CONC (BEAKER) (test 31.3 GM/DL 32.3-36.5 lonq=536) RED CELL DISTRIBUTION WIDTH (BEAKER) (test 15.8 % 11.6-14.4 pcun=872) PLATELET COUNT (BEAKER) (test psqb=020) 286 K/CU MM 150-450 MEAN PLATELET VOLUME (BEAKER) (test gjxk=065) 10.8 fL 9.4-12.4 NUCLEATED RED BLOOD CELLS (BEAKER) (test 0 /100 WBC 0-0 vrun=862) NEUTROPHILS RELATIVE PERCENT (BEAKER) (test 82 % epra=992) LYMPHOCYTES RELATIVE PERCENT (BEAKER) (test 10 % pbxb=549) MONOCYTES RELATIVE PERCENT (BEAKER) (test 6 % pbxx=035) EOSINOPHILS RELATIVE PERCENT (BEAKER) (test 0 % vvue=101) BASOPHILS RELATIVE PERCENT (BEAKER) (test 0 % mxxb=694) NEUTROPHILS ABSOLUTE COUNT (BEAKER) (test 14.81 K/ L 1.78-5.38 iczk=428) LYMPHOCYTES ABSOLUTE COUNT (BEAKER) (test 1.88 K/ L 1.32-3.57 aylp=775) MONOCYTES ABSOLUTE COUNT (BEAKER) (test 1.16 K/ L 0.30-0.82 zbwv=325) EOSINOPHILS ABSOLUTE COUNT (BEAKER) (test 0.04 K/ L 0.04-0.54 kkjf=595) BASOPHILS ABSOLUTE COUNT (BEAKER) (test 0.06 K/ L 0.01-0.08 ekox=160) IMMATURE GRANULOCYTES-RELATIVE PERCENT (BEAKER) 1 % 0-1 (test sfhc=1263) BLOOD [id number] 02:01:00 Test Item Value Reference Range Comments CULTURE (BEAKER) (test guzn=7754) No growth in 5 days BLOOD [id number] 02:01:00 Test Item Value Reference Range Comments CULTURE (BEAKER) (test znpj=7167) No growth in 5 days POCT-GLUCOSE [id number] 17:19:00 Test Item Value Reference Range Comments POC-GLUCOSE METER (BEAKER) 203 mg/dL 70-110 TESTED AT [facility] [address] [facility] (test bibd=0107) [facility] [address] POCT-GLUCOSE [id number] 13:33:00 Test Item Value Reference Range Comments POC-GLUCOSE METER (BEAKER) 239 mg/dL 70-110 TESTED AT [facility] [address] [facility] (test uoub=8695) [facility] [address] CBC W/PLT COUNT & AUTO [id number] 11:15:00 Test Item Value Reference Range Comments WHITE BLOOD CELL COUNT (BEAKER) (test nfez=292) 7.9 K/ L 3.5-10.5 RED BLOOD CELL COUNT (BEAKER) (test qvaw=955) 3.15 M/ L 4.63-6.08 HEMOGLOBIN (BEAKER) (test bgvc=110) 9.1 GM/DL 13.7-17.5 HEMATOCRIT (BEAKER) (test dhgl=760) 28.5 % 40.1-51.0 MEAN CORPUSCULAR VOLUME (BEAKER) (test dasa=111) 90.5 fL 79.0-92.2 MEAN CORPUSCULAR HEMOGLOBIN (BEAKER) (test 28.9 pg 25.7-32.2 buai=594) MEAN CORPUSCULAR HEMOGLOBIN CONC (BEAKER) (test 31.9 GM/DL 32.3-36.5 yaib=203) RED CELL DISTRIBUTION WIDTH (BEAKER) (test 14.6 % 11.6-14.4 yekn=047) PLATELET COUNT (BEAKER) (test csmq=308) 288 K/CU MM 150-450 MEAN PLATELET VOLUME (BEAKER) (test bjan=824) 10.6 fL 9.4-12.4 NUCLEATED RED BLOOD CELLS (BEAKER) (test 0 /100 WBC 0-0 ghxt=566) (CELLAVISION MANUAL DIFF)2018-12-10 11:15:00 Test Item Value Reference Range Comments NEUTROPHILS - REL (CELLAVISION)(BEAKER) (test 85 % hypb=7915) LYMPHOCYTES - REL (CELLAVISION)(BEAKER) (test 6 % dqbq=4637) MONOCYTES - REL (CELLAVISION)(BEAKER) (test 1 % ilwp=4129) EOSINOPHILS - REL (CELLAVISION)(BEAKER) (test 1 % ksrm=6664) BASOPHILS - REL (CELLAVISION)(BEAKER) (test 1 % uaur=1406) MYELOCYTES - REL (CELLAVISION)(BEAKER) (test 5 % 0-0 jyei=9914) ATYPICAL LYMPHOCYTES - REL (CELLAVISION)(BEAKER) 1 % 0-0 (test wyuz=8350) NEUTROPHILS - ABS (CELLAVISION)(BEAKER) (test 6.72 K/ul 1.78-5.38 uuny=2725) LYMPHOCYTES - ABS (CELLAVISION)(BEAKER) (test 0.47 K/ul 1.32-3.57 zoel=9144) MONOCYTES - ABS (CELLAVISION)(BEAKER) (test 0.08 K/uL 0.30-0.82 azft=7763) EOSINOPHILS - ABS (CELLAVISION)(BEAKER) (test 0.08 K/uL 0.04-0.54 idey=4452) BASOPHILS - ABS (CELLAVISION)(BEAKER) (test 0.08 K/uL 0.01-0.08 cdao=0536) MYELOCYTES-ABS (CELLAVISION)(BEAKER) (test 0.40 K/uL 0.00-0.00 pcxb=3529) ATYPICAL LYMPHOCYTES - ABS (CELLAVISION)(BEAKER) 0.08 K/uL 0.00-0.00 (test xbqq=6630) TOTAL COUNTED (BEAKER) (test gnco=4479) 100 SMUDGE CELLS (BEAKER) (test mptx=2201) Present GIANT PLATELETS (BEAKER) (test qwfn=047) Present POLYCHROMATOPHILLIC RBCS(BEAKER) (test ymqz=475) 1+ few HYPOCHROMIA (BEAKER) (test vynf=944) 1+ few PLATELET CONCENTRATION (CELLAVISION)(BEAKER) (test Adequate gojd=2900) Received comment: User comments: Slide comments:BASIC METABOLIC [id number] 08:01:00 Test Item Value Reference Range Comments SODIUM (BEAKER) (test 139 meq/L 136-145 gnuh=399) POTASSIUM (BEAKER) (test 4.1 meq/L 3.5-5.1 cswz=271) CHLORIDE (BEAKER) (test 96 meq/L 98-107 kvab=859) CO2 (BEAKER) (test 38 meq/L 22-29 idfm=721) BLOOD UREA NITROGEN 22 mg/dL 7-21 (BEAKER) (test lsug=489) CREATININE (BEAKER) (test 1.05 mg/dL 0.57-1.25 yhcd=311) GLUCOSE RANDOM (BEAKER) 133 mg/dL 70-105 (test chgz=009) CALCIUM (BEAKER) (test 8.6 mg/dL 8.4-10.2 gkrt=131) EGFR (BEAKER) (test mL/min/1.73 sq m INSUFFICIENT CLINICAL DATA hiyd=6523) TO CALCULATE ESTIMATED GFR. [id number] 07:59:00 Test Item Value Reference Range Comments MAGNESIUM (BEAKER) (test uhpv=547) 1.4 mg/dL 1.6-2.6 POCT-GLUCOSE [id number] 07:45:00 Test Item Value Reference Range Comments POC-GLUCOSE METER (BEAKER) 142 mg/dL 70-110 TESTED AT [address] (test xkfo=4584) [place] [id number] POCT-GLUCOSE [id number] 22:03:00 Test Item Value Reference Range Comments POC-GLUCOSE METER (BEAKER) 190 mg/dL 70-110 TESTED AT [address] (test bzyx=2578) [place] [id number] POCT-GLUCOSE [id number] 17:27:00 Test Item Value Reference Range Comments POC-GLUCOSE METER (BEAKER) 248 mg/dL 70-110 TESTED AT [address] (test hawl=0120) [facility] [address] POCT-GLUCOSE [id number] 15:04:00 Test Item Value Reference Range Comments POC-GLUCOSE METER (BEAKER) 391 mg/dL 70-110 TESTED AT [address] (test ctmr=8010) [facility] [address] POCT-GLUCOSE [id number] 12:31:00 Test Item Value Reference Range Comments POC-GLUCOSE METER (BEAKER) 217 mg/dL 70-110 TESTED AT [address] (test xosg=6796) [facility] [address] CBC W/PLT COUNT & AUTO [id number] 10:07:00 Test Item Value Reference Range Comments WHITE BLOOD CELL COUNT (BEAKER) (test xgdl=383) 7.4 K/ L 3.5-10.5 RED BLOOD CELL COUNT (BEAKER) (test wleg=973) 2.86 M/ L 4.63-6.08 HEMOGLOBIN (BEAKER) (test yvxj=934) 8.4 GM/DL 13.7-17.5 HEMATOCRIT (BEAKER) (test bmlv=071) 26.0 % 40.1-51.0 MEAN CORPUSCULAR VOLUME (BEAKER) (test rhkj=046) 90.9 fL 79.0-92.2 MEAN CORPUSCULAR HEMOGLOBIN (BEAKER) (test 29.4 pg 25.7-32.2 vcbd=059) MEAN CORPUSCULAR HEMOGLOBIN CONC (BEAKER) (test 32.3 GM/DL 32.3-36.5 bskc=284) RED CELL DISTRIBUTION WIDTH (BEAKER) (test 14.8 % 11.6-14.4 qhdy=884) PLATELET COUNT (BEAKER) (test yenq=145) 242 K/CU MM 150-450 MEAN PLATELET VOLUME (BEAKER) (test bywl=281) 10.7 fL 9.4-12.4 NUCLEATED RED BLOOD CELLS (BEAKER) (test 0 /100 WBC 0-0 gytl=802) (CELLAVISION MANUAL DIFF)2018-12-09 10:07:00 Test Item Value Reference Range Comments NEUTROPHILS - REL (CELLAVISION)(BEAKER) (test 76 % gykb=4887) LYMPHOCYTES - REL (CELLAVISION)(BEAKER) (test 11 % oajd=6138) MONOCYTES - REL (CELLAVISION)(BEAKER) (test 4 % vhnl=5290) EOSINOPHILS - REL (CELLAVISION)(BEAKER) (test 2 % xgho=5499) BASOPHILS - REL (CELLAVISION)(BEAKER) (test 1 % pany=3444) MYELOCYTES - REL (CELLAVISION)(BEAKER) (test 2 % 0-0 mijd=7765) PROMYELOCYTES - REL (CELLAVSION)(BEAKER) (test 3 % 0-0 rxtt=4613) ATYPICAL LYMPHOCYTES - REL (CELLAVISION)(BEAKER) 1 % 0-0 (test zaaf=1316) NEUTROPHILS - ABS (CELLAVISION)(BEAKER) (test 5.62 K/ul 1.78-5.38 qawj=2479) LYMPHOCYTES - ABS (CELLAVISION)(BEAKER) (test 0.81 K/ul 1.32-3.57 ftpm=0462) MONOCYTES - ABS (CELLAVISION)(BEAKER) (test 0.30 K/uL 0.30-0.82 qton=3312) EOSINOPHILS - ABS (CELLAVISION)(BEAKER) (test 0.15 K/uL 0.04-0.54 vher=7199) BASOPHILS - ABS (CELLAVISION)(BEAKER) (test 0.07 K/uL 0.01-0.08 ptrj=9080) MYELOCYTES-ABS (CELLAVISION)(BEAKER) (test 0.15 K/uL 0.00-0.00 nudi=2912) PROMYELOCYTES - ABS (CELLAVISION)(BEAKER) (test 0.22 K/uL 0.00-0.00 olrq=1676) ATYPICAL LYMPHOCYTES - ABS (CELLAVISION)(BEAKER) 0.07 K/uL 0.00-0.00 (test vtdi=7307) TOTAL COUNTED (BEAKER) (test vvof=7773) 100 WBC MORPHOLOGY (BEAKER) (test bfoz=240) Normal PLT MORPHOLOGY (BEAKER) (test vppj=421) Normal ANISOCYTOSIS (BEAKER) (test oemc=599) 1+ few MICROCYTES (BEAKER) (test wjjh=905) 1+ few ARTIFACT (CELLAVISION)(BEAKER) (test ytml=8197) Present PLATELET CONCENTRATION (CELLAVISION)(BEAKER) (test Adequate xhhq=6064) Received comment: User comments: Slide comments:POCT-GLUCOSE [id number] 08: 19:00 Test Item Value Reference Range Comments POC-GLUCOSE METER (BEAKER) 159 mg/dL 70-110 TESTED AT [facility] [address] [facility] (test ushl=9163) [facility] [address] BASIC METABOLIC [id number] 03:52:00 Test Item Value Reference Range Comments SODIUM (BEAKER) (test 135 meq/L 136-145 kiqt=158) POTASSIUM (BEAKER) (test 3.9 meq/L 3.5-5.1 pstx=000) CHLORIDE (BEAKER) (test 97 meq/L 98-107 koax=104) CO2 (BEAKER) (test 30 meq/L 22-29 stev=595) BLOOD UREA NITROGEN 25 mg/dL 7-21 (BEAKER) (test faei=882) CREATININE (BEAKER) (test 1.13 mg/dL 0.57-1.25 gsnq=173) GLUCOSE RANDOM (BEAKER) 151 mg/dL 70-105 (test qjak=082) CALCIUM (BEAKER) (test 8.3 mg/dL 8.4-10.2 mgsi=156) EGFR (BEAKER) (test mL/min/1.73 sq m INSUFFICIENT CLINICAL DATA cbka=9715) TO CALCULATE ESTIMATED GFR. [id number] 03:49:00 Test Item Value Reference Range Comments MAGNESIUM (BEAKER) (test llff=210) 1.5 mg/dL 1.6-2.6 VANCOMYCIN LEVEL, [id number] 03:48:00 Test Item Value Reference Range Comments VANCOMYCIN TROUGH (BEAKER) (test nemk=627) 17.8 ug/mL 10.0-20.0 POCT-GLUCOSE [id number] 22:44:00 Test Item Value Reference Range Comments POC-GLUCOSE METER (BEAKER) 196 mg/dL 70-110 TESTED AT [address] (test vzrl=6311) [place] [id number] POCT-GLUCOSE [id number] 16:58:00 Test Item Value Reference Range Comments POC-GLUCOSE METER (BEAKER) 276 mg/dL 70-110 TESTED AT [address] (test ceyc=3691) [place] [id number] POCT-GLUCOSE [id number] 12:49:00 Test Item Value Reference Range Comments POC-GLUCOSE METER (BEAKER) 298 mg/dL 70-110 TESTED AT [address] (test htds=4796) [place] [id number] 09:57:00 Test Item Value Reference Range Comments PROCALCITONIN (BEAKER) (test bmqq=1184) 7.07 ng/mL <0.05 SEPSIS RISK (ng/mL)Low: 0.05-0.50Intermediate: 0.51-2.00High: & gt;=2.01POCT-GLUCOSE [id number] 08:05:00 Test Item Value Reference Range Comments POC-GLUCOSE METER (BEAKER) 157 mg/dL 70-110 TESTED AT [facility] [address] [facility] (test urrv=2335) [facility] [address] BASIC METABOLIC [id number] 05:38:00 Test Item Value Reference Range Comments SODIUM (BEAKER) (test 138 meq/L 136-145 yqwp=057) POTASSIUM (BEAKER) (test 4.3 meq/L 3.5-5.1 Specimen slightly pnqe=724) hemolyzed CHLORIDE (BEAKER) (test 103 meq/L 98-107 llis=302) CO2 (BEAKER) (test 29 meq/L 22-29 bsiz=931) BLOOD UREA NITROGEN 28 mg/dL 7-21 (BEAKER) (test zoht=715) CREATININE (BEAKER) (test 1.08 mg/dL 0.57-1.25 Specimen slightly vgve=948) hemolyzed GLUCOSE RANDOM (BEAKER) 120 mg/dL 70-105 (test phdn=579) CALCIUM (BEAKER) (test 8.5 mg/dL 8.4-10.2 tbwn=604) EGFR (BEAKER) (test mL/min/1.73 sq m INSUFFICIENT CLINICAL DATA wjwo=0060) TO CALCULATE ESTIMATED GFR. [id number] 05:21:00 Test Item Value Reference Range Comments MAGNESIUM (BEAKER) (test 1.6 mg/dL 1.6-2.6 Specimen slightly hemolyzed cqsg=983) CBC W/PLT COUNT & AUTO [id number] 05:01:00 Test Item Value Reference Range Comments WHITE BLOOD CELL COUNT (BEAKER) (test konz=689) 11.0 K/ L 3.5-10.5 RED BLOOD CELL COUNT (BEAKER) (test ahyy=633) 2.37 M/ L 4.63-6.08 HEMOGLOBIN (BEAKER) (test jaej=836) 6.9 GM/DL 13.7-17.5 HEMATOCRIT (BEAKER) (test ehsd=544) 22.2 % 40.1-51.0 MEAN CORPUSCULAR VOLUME (BEAKER) (test uzvs=382) 93.7 fL 79.0-92.2 MEAN CORPUSCULAR HEMOGLOBIN (BEAKER) (test 29.1 pg 25.7-32.2 fngw=403) MEAN CORPUSCULAR HEMOGLOBIN CONC (BEAKER) (test 31.1 GM/DL 32.3-36.5 ggzj=607) RED CELL DISTRIBUTION WIDTH (BEAKER) (test 15.6 % 11.6-14.4 yozq=685) PLATELET COUNT (BEAKER) (test ewbt=256) 214 K/CU MM 150-450 MEAN PLATELET VOLUME (BEAKER) (test nyyk=038) 10.9 fL 9.4-12.4 NUCLEATED RED BLOOD CELLS (BEAKER) (test 0 /100 WBC 0-0 ciib=359) NEUTROPHILS RELATIVE PERCENT (BEAKER) (test 81 % mftn=322) LYMPHOCYTES RELATIVE PERCENT (BEAKER) (test 9 % jsqh=426) MONOCYTES RELATIVE PERCENT (BEAKER) (test 8 % iuir=503) EOSINOPHILS RELATIVE PERCENT (BEAKER) (test 1 % taht=182) BASOPHILS RELATIVE PERCENT (BEAKER) (test 0 % cgqt=875) NEUTROPHILS ABSOLUTE COUNT (BEAKER) (test 8.86 K/ L 1.78-5.38 kbrn=739) LYMPHOCYTES ABSOLUTE COUNT (BEAKER) (test 0.93 K/ L 1.32-3.57 tdbw=139) MONOCYTES ABSOLUTE COUNT (BEAKER) (test 0.86 K/ L 0.30-0.82 gmsq=217) EOSINOPHILS ABSOLUTE COUNT (BEAKER) (test 0.11 K/ L 0.04-0.54 legi=273) BASOPHILS ABSOLUTE COUNT (BEAKER) (test 0.02 K/ L 0.01-0.08 rqxa=444) IMMATURE GRANULOCYTES-RELATIVE PERCENT (BEAKER) 2 % 0-1 (test qzwx=6159) POCT-GLUCOSE [id number] 21:59:00 Test Item Value Reference Range Comments POC-GLUCOSE METER (BEAKER) 199 mg/dL 70-110 TESTED AT [address] (test yhob=5918) [facility] [address] POCT-GLUCOSE [id number] 17:41:00 Test Item Value Reference Range Comments POC-GLUCOSE METER (BEAKER) 117 mg/dL 70-110 TESTED AT [address] (test qjmv=2738) [facility] [address] POCT-GLUCOSE [id number] 12:26:00 Test Item Value Reference Range Comments POC-GLUCOSE METER (BEAKER) 171 mg/dL 70-110 TESTED AT [facility] [address] [facility] (test xejk=1738) [place] [address] BLOOD [id number] 12:01:00 Test Item Value Reference Range Comments CULTURE (BEAKER) (test hasc=5165) No growth in 5 days BLOOD [id number] 12:01:00 Test Item Value Reference Range Comments CULTURE (BEAKER) (test ymkv=8966) No growth in 5 days POCT-GLUCOSE [id number] 06:35:00 Test Item Value Reference Range Comments POC-GLUCOSE METER (BEAKER) 177 mg/dL 70-110 TESTED AT [address] (test chbl=3356) [place] [id number] BASIC METABOLIC [id number] 03:30:00 Test Item Value Reference Range Comments SODIUM (BEAKER) (test 135 meq/L 136-145 fqez=468) POTASSIUM (BEAKER) (test 4.4 meq/L 3.5-5.1 dpro=257) CHLORIDE (BEAKER) (test 103 meq/L 98-107 zfgf=782) CO2 (BEAKER) (test 26 meq/L 22-29 gise=217) BLOOD UREA NITROGEN 37 mg/dL 7-21 (BEAKER) (test uyfj=920) CREATININE (BEAKER) (test 1.33 mg/dL 0.57-1.25 btmi=665) GLUCOSE RANDOM (BEAKER) 141 mg/dL 70-105 (test omsh=078) CALCIUM (BEAKER) (test 8.2 mg/dL 8.4-10.2 fejf=006) EGFR (BEAKER) (test mL/min/1.73 sq m INSUFFICIENT CLINICAL DATA vmld=3043) TO CALCULATE ESTIMATED GFR. [id number] 03:27:00 Test Item Value Reference Range Comments MAGNESIUM (BEAKER) (test hsjz=626) 2.1 mg/dL 1.6-2.6 CBC W/PLT COUNT & AUTO [id number] 02:48:00 Test Item Value Reference Range Comments WHITE BLOOD CELL COUNT (BEAKER) (test sqgv=248) 15.1 K/ L 3.5-10.5 RED BLOOD CELL COUNT (BEAKER) (test phyt=574) 2.42 M/ L 4.63-6.08 HEMOGLOBIN (BEAKER) (test uask=408) 7.1 GM/DL 13.7-17.5 HEMATOCRIT (BEAKER) (test eall=852) 22.4 % 40.1-51.0 MEAN CORPUSCULAR VOLUME (BEAKER) (test pmkf=045) 92.6 fL 79.0-92.2 MEAN CORPUSCULAR HEMOGLOBIN (BEAKER) (test 29.3 pg 25.7-32.2 szsi=356) MEAN CORPUSCULAR HEMOGLOBIN CONC (BEAKER) (test 31.7 GM/DL 32.3-36.5 tcbx=665) RED CELL DISTRIBUTION WIDTH (BEAKER) (test 15.6 % 11.6-14.4 bfpx=590) PLATELET COUNT (BEAKER) (test zaql=021) 190 K/CU MM 150-450 MEAN PLATELET VOLUME (BEAKER) (test namn=107) 10.0 fL 9.4-12.4 NUCLEATED RED BLOOD CELLS (BEAKER) (test 0 /100 WBC 0-0 kklo=872) NEUTROPHILS RELATIVE PERCENT (BEAKER) (test 86 % rpws=855) LYMPHOCYTES RELATIVE PERCENT (BEAKER) (test 4 % gbpw=816) MONOCYTES RELATIVE PERCENT (BEAKER) (test 8 % kwhg=096) EOSINOPHILS RELATIVE PERCENT (BEAKER) (test 1 % uqyp=207) BASOPHILS RELATIVE PERCENT (BEAKER) (test 0 % szqe=087) NEUTROPHILS ABSOLUTE COUNT (BEAKER) (test 13.00 K/ L 1.78-5.38 rwqd=545) LYMPHOCYTES ABSOLUTE COUNT (BEAKER) (test 0.66 K/ L 1.32-3.57 eduw=349) MONOCYTES ABSOLUTE COUNT (BEAKER) (test 1.20 K/ L 0.30-0.82 ydzp=218) EOSINOPHILS ABSOLUTE COUNT (BEAKER) (test 0.07 K/ L 0.04-0.54 vfri=769) BASOPHILS ABSOLUTE COUNT (BEAKER) (test 0.03 K/ L 0.01-0.08 rybk=886) IMMATURE GRANULOCYTES-RELATIVE PERCENT (BEAKER) 1 % 0-1 (test mhis=2094) POCT-GLUCOSE [id number] 01:00:00 Test Item Value Reference Range Comments POC-GLUCOSE METER (BEAKER) 167 mg/dL 70-110 TESTED AT [facility] [address] [facility] (test vybc=6861) [facility] [address] POCT-GLUCOSE [id number] 21:31:00 Test Item Value Reference Range Comments POC-GLUCOSE METER (CLARA) 201 mg/dL 70-110 TESTED AT [facility] [address] [facility] (test fmnh=9487) [facility] [address] RAD, CHEST, PA OR AP, 1 [id number] 20:12:00VAT/Infusion Therapy Nurse to Call Radiology Department when patient is readyReason for exam:->SPPICC line insertion/verify placementShould this be performed at the bedside?-> YesAddendum BeginsREPORT STATUS:A Addendum: An additional image was acquired. Tip of the right upper extremity central line projects over the superior vena cava. Signed: Mickey Espinal Verified Date/Time: 12/06/2018 20:12:07 Reading Location: [address] Reading RoomAddendum EndsAddendum BeginsREPORT STATUS:A Addendum: Examination was repeated. Tip of the right upper extremity central line remains indistinct. Signed: Mickey Espinal Verified Date/Time: 03/2019 20:05:52 Reading Location: [address] Reading RoomAddendum EndsFINAL REPORT EXAMINATION: AP [...] Espinal Verified Date/Time: 12/06/2018 19:07:07 Reading Location: [address] Reading Room [id number] 18:52:00 Test Item Value Reference Range Comments PROCALCITONIN (BEAKER) (test vstb=5817) 32.61 ng/mL <0.05 SEPSIS RISK (ng/mL)Low: 0.05-0.50Intermediate: 0.51-2.00High: & gt;=2.01POCT-GLUCOSE [id number] 18:02:00 Test Item Value Reference Range Comments POC-GLUCOSE METER (BEAKER) 190 mg/dL 70-110 TESTED AT [facility] [address] [facility] (test itlm=6611) [facility] [address] CBC W/PLT COUNT & AUTO [id number] 17:53:00 Test Item Value Reference Range Comments WHITE BLOOD CELL COUNT (BEAKER) (test cvhg=408) 19.3 K/ L 3.5-10.5 RED BLOOD CELL COUNT (BEAKER) (test gtmg=421) 2.44 M/ L 4.63-6.08 HEMOGLOBIN (BEAKER) (test jall=976) 7.2 GM/DL 13.7-17.5 HEMATOCRIT (BEAKER) (test amjk=185) 22.8 % 40.1-51.0 MEAN CORPUSCULAR VOLUME (BEAKER) (test qpbg=196) 93.4 fL 79.0-92.2 MEAN CORPUSCULAR HEMOGLOBIN (BEAKER) (test 29.5 pg 25.7-32.2 xgva=710) MEAN CORPUSCULAR HEMOGLOBIN CONC (BEAKER) (test 31.6 GM/DL 32.3-36.5 aaso=750) RED CELL DISTRIBUTION WIDTH (BEAKER) (test 15.9 % 11.6-14.4 ppqk=039) PLATELET COUNT (BEAKER) (test iiuu=035) 208 K/CU MM 150-450 MEAN PLATELET VOLUME (BEAKER) (test naeo=606) 10.7 fL 9.4-12.4 NUCLEATED RED BLOOD CELLS (BEAKER) (test 0 /100 WBC 0-0 fjce=518) (CELLAVISION MANUAL DIFF)2018-12-06 17:53:00 Test Item Value Reference Range Comments NEUTROPHILS - REL (CELLAVISION)(BEAKER) (test 89 % gepk=1350) LYMPHOCYTES - REL (CELLAVISION)(BEAKER) (test 2 % yumj=4890) MONOCYTES - REL (CELLAVISION)(BEAKER) (test 2 % mayo=4717) BANDS - REL (CELLAVISION)(BEAKER) (test 7 % 0-10 ywgj=3210) NEUTROPHILS - ABS (CELLAVISION)(BEAKER) (test 17.18 K/ul 1.78-5.38 gvpc=4203) LYMPHOCYTES - ABS (CELLAVISION)(BEAKER) (test 0.39 K/ul 1.32-3.57 jptc=3224) MONOCYTES - ABS (CELLAVISION)(BEAKER) (test 0.39 K/uL 0.30-0.82 ykje=4264) BANDS - ABS (CELLAVISION)(BEAKER) (test 1.35 K/uL 0.00-0.80 eafa=1563) TOTAL COUNTED (BEAKER) (test ifjo=0790) 100 SMUDGE CELLS (BEAKER) (test damr=7141) Present GIANT PLATELETS (BEAKER) (test aqjv=844) Present POLYCHROMATOPHILLIC RBCS(BEAKER) (test krty=814) 3+ many HYPOCHROMIA (BEAKER) (test flja=625) 1+ few ANISOCYTOSIS (BEAKER) (test fkoe=764) 1+ few MICROCYTES (BEAKER) (test rftx=534) 1+ few POIKILOCYTES (BEAKER) (test iloc=983) 1+ few PLATELET CONCENTRATION (CELLAVISION)(BEAKER) Adequate (test mdmh=2751) Received comment: User comments: Slide comments:COMPREHENSIVE METABOLIC [id number] 17:41:00 Test Item Value Reference Range Comments TOTAL PROTEIN (BEAKER) 5.5 gm/dL 6.0-8.3 (test kmds=328) ALBUMIN (BEAKER) (test 2.5 g/dL 3.5-5.0 yubw=5758) ALKALINE PHOSPHATASE 172 U/L 40-150 (BEAKER) (test louy=517) BILIRUBIN TOTAL (BEAKER) 0.2 mg/dL 0.2-1.2 (test aovw=334) SODIUM (BEAKER) (test 134 meq/L 136-145 inab=381) POTASSIUM (BEAKER) (test 4.8 meq/L 3.5-5.1 mmkr=015) CHLORIDE (BEAKER) (test 101 meq/L 98-107 tord=334) CO2 (BEAKER) (test 26 meq/L 22-29 ziyw=714) BLOOD UREA NITROGEN 39 mg/dL 7-21 (BEAKER) (test fstl=966) CREATININE (BEAKER) (test 1.55 mg/dL 0.57-1.25 qife=563) GLUCOSE RANDOM (BEAKER) 175 mg/dL 70-105 (test kygj=297) CALCIUM (BEAKER) (test 8.3 mg/dL 8.4-10.2 qhbs=014) AST (SGOT) (BEAKER) (test 23 U/L 5-34 rkfm=744) ALT (SGPT) (BEAKER) (test 18 U/L 6-55 bxvx=184) EGFR (BEAKER) (test mL/min/1.73 sq m INSUFFICIENT CLINICAL DATA bdjt=6846) TO CALCULATE ESTIMATED GFR. TROPONIN [id number] 17:41:00 Test Item Value Reference Range Comments TROPONIN I (BEAKER) (test jxaq=289) 0.02 ng/mL 0.00-0.03 Troponin I (TnI) levels [...] acidosis, acute neurological disease, and persistent tachyarrhythmia.PROTHROMBIN [id number] 17:35:00 Test Item Value Reference Range Comments PROTIME (BEAKER) (test xybv=911) 16.0 seconds 11.7-14.7 INR (BEAKER) (test apic=841) 1.4 <=5.9 RECOMMENDED COUMADIN/WARFARIN INR THERAPY RANGESSTANDARD DOSE: 2.0 - 3.0 Includes: PROPHYLAXIS forvenous thrombosis, systemic embolization; TREATMENT for venous thrombosis and/or pulmonary embolus.HIGH RISK: Target INR is 2.5-3.5 for patients with mechanical heart valves.LACTIC ACID, [id number] 17:28:00 Test Item Value Reference Range Comments LACTATE BLOOD VENOUS (2) (BEAKER) (test 0.6 mmol/L 0.5-2.2 xctq=1800) CT, [id number] 15:53:00FINAL REPORT CT abdomen and pelvis without [...] no significant interval change. Signed: Abiodun Macias [facility] Verified Date/Time: 12/06/2018 15:53:40 Reading Location: [facility] Mammo Reading Room POCT-GLUCOSE [id number] 12:57:00 Test Item Value Reference Range Comments POC-GLUCOSE METER (BEAKER) 243 mg/dL 70-110 TESTED AT [facility] [address] [facility] (test ujgl=9623) [facility] [address] HEMOGLOBIN AND [id number] 23:31:00 Test Item Value Reference Range Comments HEMOGLOBIN (BEAKER) (test upoo=701) 7.2 GM/DL 13.7-17.5 HEMATOCRIT (BEAKER) (test tgvk=753) 23.0 % 40.1-51.0 POCT-GLUCOSE [id number] 22:56:00 Test Item Value Reference Range Comments POC-GLUCOSE METER (BEAKER) 90 mg/dL 70-110 TESTED AT [address] (test jdor=9437) [facility] [address] LACTIC ACID, [id number] 22:19:00 Test Item Value Reference Range Comments LACTATE BLOOD ARTERIAL (2) (BEAKER) (test 2.1 mmol/L 0.5-2.2 vozs=5195) POCT-GLUCOSE [id number] 22:07:00 Test Item Value Reference Range Comments POC-GLUCOSE METER (BEAKER) 91 mg/dL 70-110 TESTED AT [address] (test qgul=4638) [place] [id number] BLOOD GAS, [id number] 22:02:00 Test Item Value Reference Range Comments PH ARTERIAL (BEAKER) (test fuws=968) 7.41 7.35-7.45 PCO2 ARTERIAL (BEAKER) (test ypax=716) 44 mmHg 35-45 PO2 ARTERIAL (BEAKER) (test rfle=118) 187 mmHg 80-90 O2 SATURATION ARTERIAL (BEAKER) (test thzx=207) 99.3 % 96.0-97.0 HCO3 ARTERIAL (BEAKER) (test epku=950) 27 mmol/L 21-29 BASE EXCESS ARTERIAL (BEAKER) (test kpsy=647) 2.1 mmol/L -2.0-3.0 PATIENT TEMPERATURE (BEAKER) (test rlav=3390) 37.0 C FIO2 (BEAKER) (test uusx=3189) 60.0 % URINALYSIS W/ REFLEX URINE [id number] 21:47:00 Test Item Value Reference Range Comments COLOR (BEAKER) (test pzwg=737) Yellow CLARITY (BEAKER) (test nsiu=109) Cloudy SPECIFIC GRAVITY UA (BEAKER) (test znyk=213) 1.016 1.001-1.035 PH UA (BEAKER) (test wzbi=810) 5.5 5.0-8.0 PROTEIN UA (BEAKER) (test dfsc=140) 100 mg/dL Negative GLUCOSE UA (BEAKER) (test pwlr=280) Negative Negative KETONES UA (BEAKER) (test cpws=962) Trace Negative BILIRUBIN UA (BEAKER) (test tqmb=369) Negative Negative BLOOD UA (BEAKER) (test lntv=690) Trace Negative NITRITE UA (BEAKER) (test yesx=002) Negative Negative LEUKOCYTE ESTERASE UA (BEAKER) (test umbt=187) Small Negative UROBILINOGEN UA (BEAKER) (test mhnp=709) 0.2 mg/dL 0.2-1.0 RBC UA (BEAKER) (test lzvh=723) 0 /HPF WBC UA (BEAKER) (test rpkv=993) 4 /HPF MUCUS (BEAKER) (test tvav=3197) Rare SOURCE(BEAKER) (test jqnr=9839) POCT-GLUCOSE [id number] 20:53:00 Test Item Value Reference Range Comments POC-GLUCOSE METER (BEAKER) 65 mg/dL 70-110 TESTED AT [address] (test pdxz=5245) [place] [address] POCT-GLUCOSE [id number] 20:27:00 Test Item Value Reference Range Comments POC-GLUCOSE METER (BEAKER) 97 mg/dL 70-110 TESTED AT [address] (test nlwk=2439) [place] [id number] POCT-GLUCOSE [id number] 20:11:00 Test Item Value Reference Range Comments POC-GLUCOSE METER (BEAKER) 32 mg/dL 70-110 TESTED AT [address] (test owyf=5992) [facility] [address] RAD, CHEST, 1 VIEW, NON [id number] 19:53:00Reason for exam:-> intubationShould this be performed [...] or acute bony abnormality. Signed: Sergey Sommer MDReport Verified Date/Time: 12/05/2018 19:53:20 Electronically signed by: SERGEY SOMMER M.D. on 02/2019 07:53 PMLACTIC ACID, [id number] 19:33:00 Test Item Value Reference Range Comments LACTATE BLOOD ARTERIAL (2) (BEAKER) (test 2.2 mmol/L 0.5-2.2 rcsf=2029) CBC W/PLT COUNT & AUTO [id number] 18:43:00 Test Item Value Reference Range Comments WHITE BLOOD CELL COUNT (BEAKER) (test jqie=662) 4.8 K/ L 3.5-10.5 RED BLOOD CELL COUNT (BEAKER) (test jntx=303) 3.05 M/ L 4.63-6.08 HEMOGLOBIN (BEAKER) (test oytu=018) 9.0 GM/DL 13.7-17.5 HEMATOCRIT (BEAKER) (test usii=610) 28.5 % 40.1-51.0 MEAN CORPUSCULAR VOLUME (BEAKER) (test uqyx=154) 93.4 fL 79.0-92.2 MEAN CORPUSCULAR HEMOGLOBIN (BEAKER) (test 29.5 pg 25.7-32.2 uczs=228) MEAN CORPUSCULAR HEMOGLOBIN CONC (BEAKER) (test 31.6 GM/DL 32.3-36.5 prjm=189) RED CELL DISTRIBUTION WIDTH (BEAKER) (test 15.9 % 11.6-14.4 upjc=737) PLATELET COUNT (BEAKER) (test liee=069) 244 K/CU MM 150-450 MEAN PLATELET VOLUME (BEAKER) (test zpux=060) 10.5 fL 9.4-12.4 NUCLEATED RED BLOOD CELLS (BEAKER) (test 1 /100 WBC 0-0 rbnn=938) (CELLAVISION MANUAL DIFF)2018-12-05 18:43:00 Test Item Value Reference Range Comments NEUTROPHILS - REL (CELLAVISION)(BEAKER) (test 77 % tuyu=3532) LYMPHOCYTES - REL (CELLAVISION)(BEAKER) (test 4 % oxtv=7360) MYELOCYTES - REL (CELLAVISION)(BEAKER) (test 1 % 0-0 uetl=8292) BANDS - REL (CELLAVISION)(BEAKER) (test 18 % 0-10 xilh=4311) NEUTROPHILS - ABS (CELLAVISION)(BEAKER) (test 3.70 K/ul 1.78-5.38 uvzp=8540) LYMPHOCYTES - ABS (CELLAVISION)(BEAKER) (test 0.19 K/ul 1.32-3.57 fsho=6315) MYELOCYTES-ABS (CELLAVISION)(BEAKER) (test 0.05 K/uL 0.00-0.00 uyjn=0379) BANDS - ABS (CELLAVISION)(BEAKER) (test 0.86 K/uL 0.00-0.80 wuwg=1856) TOTAL COUNTED (BEAKER) (test rrjg=8640) 100 MANUAL NRBC PER 100 CELLS (BEAKER) (test 3 /100 WBC 0-0 mttr=5007) WBC MORPHOLOGY (BEAKER) (test auzy=538) Normal GIANT PLATELETS (BEAKER) (test cdtv=428) Present LARGE PLT(BEAKER) (test oxip=2693) Present POLYCHROMATOPHILLIC RBCS(BEAKER) (test suyx=185) 1+ few ANISOCYTOSIS (BEAKER) (test rdlq=883) 1+ few MICROCYTES (BEAKER) (test zcit=520) 1+ few MACROCYTES (BEAKER) (test smwg=586) 2+ moderate ARTIFACT (CELLAVISION)(BEAKER) (test wxym=2402) Present PLATELET CONCENTRATION (CELLAVISION)(BEAKER) Adequate (test xjiz=0567) Received comment: User comments: Slide comments:POCT-GLUCOSE [id number] 18: 37:00 Test Item Value Reference Range Comments POC-GLUCOSE METER (BEAKER) 76 mg/dL 70-110 TESTED AT [place] [id number] [facility] (test catc=1459) [place] [address] B-TYPE NATRIURETIC FACTOR (BNP)2018-12-05 17:58:00 Test Item Value Reference Range Comments B-TYPE NATRIURETIC PEPTIDE (BEAKER) (test 278 pg/mL 0-100 bkqg=776) TROPONIN [id number] 17:58:00 Test Item Value Reference Range Comments TROPONIN I (BEAKER) (test omxg=973) 0.01 ng/mL 0.00-0.03 Troponin I (TnI) levels [...] acute neurological disease, and persistent tachyarrhythmia.BASIC METABOLIC [id number] 17:55:00 Test Item Value Reference Range Comments SODIUM (BEAKER) (test 138 meq/L 136-145 hhkn=297) POTASSIUM (BEAKER) (test 3.6 meq/L 3.5-5.1 Specimen slightly xaoa=084) hemolyzed CHLORIDE (BEAKER) (test 102 meq/L 98-107 llda=423) CO2 (BEAKER) (test 27 meq/L 22-29 qhup=281) BLOOD UREA NITROGEN 40 mg/dL 7-21 (BEAKER) (test xskm=300) CREATININE (BEAKER) (test 1.41 mg/dL 0.57-1.25 Specimen slightly kvyl=542) hemolyzed GLUCOSE RANDOM (BEAKER) 55 mg/dL 70-105 (test vqwd=627) CALCIUM (BEAKER) (test 8.3 mg/dL 8.4-10.2 ieje=092) EGFR (BEAKER) (test mL/min/1.73 sq m INSUFFICIENT CLINICAL DATA ecqe=4765) TO CALCULATE ESTIMATED GFR. [id number] 17:52:00 Test Item Value Reference Range Comments MAGNESIUM (BEAKER) (test 1.3 mg/dL 1.6-2.6 Specimen slightly hemolyzed bcnp=485) [id number] 17:52:00 Test Item Value Reference Range Comments PHOSPHORUS (BEAKER) (test 3.0 mg/dL 2.3-4.7 Specimen slightly hemolyzed oerw=605) CREATINE KINASE (CK)2018-12-05 17:52:00 Test Item Value Reference Range Comments CREATINE KINASE TOTAL (BEAKER) (test qrwm=714) 35 U/L 29-200 BLOOD GAS, [id number] 17:36:00 Test Item Value Reference Range Comments PH ARTERIAL (BEAKER) (test rwef=350) 7.25 7.35-7.45 PCO2 ARTERIAL (BEAKER) (test kzqc=129) 70 mmHg 35-45 PO2 ARTERIAL (BEAKER) (test sysm=786) 167 mmHg 80-90 O2 SATURATION ARTERIAL (BEAKER) (test wmlg=487) 98.7 % 96.0-97.0 HCO3 ARTERIAL (BEAKER) (test htnm=515) 29 mmol/L 21-29 BASE EXCESS ARTERIAL (BEAKER) (test pued=258) 1.4 mmol/L -2.0-3.0 PATIENT TEMPERATURE (BEAKER) (test vywr=6487) 39.3 C FIO2 (BEAKER) (test pzdb=2489) 60.0 % POCT-GLUCOSE [id number] 17:30:00 Test Item Value Reference Range Comments POC-GLUCOSE METER (BEAKER) 54 mg/dL 70-110 Notified RYLEE OROPEZA/TESTED AT [facility] (test smhc=0502) [address] [place] [address] POCT-GLUCOSE [id number] 11:33:00 Test Item Value Reference Range Comments POC-GLUCOSE METER (BEAKER) 109 mg/dL 70-110 TESTED AT [address] (test iazr=3400) [facility] [address] BASIC METABOLIC [id number] 06:25:00 Test Item Value Reference Range Comments SODIUM (BEAKER) (test 136 meq/L 136-145 alup=735) POTASSIUM (BEAKER) (test 3.8 meq/L 3.5-5.1 npaz=235) CHLORIDE (BEAKER) (test 103 meq/L 98-107 qdik=936) CO2 (BEAKER) (test 26 meq/L 22-29 ackn=825) BLOOD UREA NITROGEN 52 mg/dL 7-21 (BEAKER) (test vwcp=268) CREATININE (BEAKER) (test 1.52 mg/dL 0.57-1.25 uide=077) GLUCOSE RANDOM (BEAKER) 94 mg/dL 70-105 (test okiw=223) CALCIUM (BEAKER) (test 8.9 mg/dL 8.4-10.2 urgz=927) EGFR (BEAKER) (test mL/min/1.73 sq m INSUFFICIENT CLINICAL DATA iuwz=6919) TO CALCULATE ESTIMATED GFR. [id number] 06:24:00 Test Item Value Reference Range Comments MAGNESIUM (BEAKER) (test shxv=069) 1.6 mg/dL 1.6-2.6 [id number] 06:18:00 Test Item Value Reference Range Comments FERRITIN (BEAKER) (test dked=031) 62 ng/mL 5-275 CBC W/PLT COUNT & AUTO [id number] 05:54:00 Test Item Value Reference Range Comments WHITE BLOOD CELL COUNT (BEAKER) (test szwv=088) 7.9 K/ L 3.5-10.5 RED BLOOD CELL COUNT (BEAKER) (test mdmv=937) 2.81 M/ L 4.63-6.08 HEMOGLOBIN (BEAKER) (test xxii=540) 8.3 GM/DL 13.7-17.5 HEMATOCRIT (BEAKER) (test esyt=634) 26.6 % 40.1-51.0 MEAN CORPUSCULAR VOLUME (BEAKER) (test nnxu=804) 94.7 fL 79.0-92.2 MEAN CORPUSCULAR HEMOGLOBIN (BEAKER) (test 29.5 pg 25.7-32.2 zvck=627) MEAN CORPUSCULAR HEMOGLOBIN CONC (BEAKER) (test 31.2 GM/DL 32.3-36.5 zvzu=367) RED CELL DISTRIBUTION WIDTH (BEAKER) (test 15.9 % 11.6-14.4 qmvg=615) PLATELET COUNT (BEAKER) (test safc=297) 215 K/CU MM 150-450 MEAN PLATELET VOLUME (BEAKER) (test oxfi=194) 10.7 fL 9.4-12.4 NUCLEATED RED BLOOD CELLS (BEAKER) (test 0 /100 WBC 0-0 narr=578) NEUTROPHILS RELATIVE PERCENT (BEAKER) (test 78 % kgzp=714) LYMPHOCYTES RELATIVE PERCENT (BEAKER) (test 9 % mren=358) MONOCYTES RELATIVE PERCENT (BEAKER) (test 10 % zdsw=952) EOSINOPHILS RELATIVE PERCENT (BEAKER) (test 2 % yama=465) BASOPHILS RELATIVE PERCENT (BEAKER) (test 0 % niwt=610) NEUTROPHILS ABSOLUTE COUNT (BEAKER) (test 6.22 K/ L 1.78-5.38 dges=238) LYMPHOCYTES ABSOLUTE COUNT (BEAKER) (test 0.74 K/ L 1.32-3.57 zlnt=029) MONOCYTES ABSOLUTE COUNT (BEAKER) (test 0.76 K/ L 0.30-0.82 iles=380) EOSINOPHILS ABSOLUTE COUNT (BEAKER) (test 0.16 K/ L 0.04-0.54 njdn=468) BASOPHILS ABSOLUTE COUNT (BEAKER) (test 0.02 K/ L 0.01-0.08 gaho=543) IMMATURE GRANULOCYTES-RELATIVE PERCENT (BEAKER) 0 % 0-1 (test opql=3544) POCT-GLUCOSE [id number] 21:45:00 Test Item Value Reference Range Comments POC-GLUCOSE METER (BEAKER) 126 mg/dL 70-110 TESTED AT [address] (test blmy=4654) [place] [id number] POCT-GLUCOSE [id number] 17:33:00 Test Item Value Reference Range Comments POC-GLUCOSE METER (BEAKER) 130 mg/dL 70-110 TESTED AT [address] (test gxmk=3236) [place] [address] POCT-GLUCOSE [id number] 11:52:00 Test Item Value Reference Range Comments POC-GLUCOSE METER (BEAKER) 194 mg/dL 70-110 TESTED AT [address] (test thid=2201) [place] [address] CBC W/PLT COUNT & AUTO [id number] 09:12:00 Test Item Value Reference Range Comments WHITE BLOOD CELL COUNT (BEAKER) (test vrcm=164) 5.8 K/ L 3.5-10.5 RED BLOOD CELL COUNT (BEAKER) (test xbet=054) 2.56 M/ L 4.63-6.08 HEMOGLOBIN (BEAKER) (test jwhd=648) 7.5 GM/DL 13.7-17.5 HEMATOCRIT (BEAKER) (test mqbm=008) 24.0 % 40.1-51.0 MEAN CORPUSCULAR VOLUME (BEAKER) (test zotv=803) 93.8 fL 79.0-92.2 MEAN CORPUSCULAR HEMOGLOBIN (BEAKER) (test 29.3 pg 25.7-32.2 jsjc=237) MEAN CORPUSCULAR HEMOGLOBIN CONC (BEAKER) (test 31.3 GM/DL 32.3-36.5 bqcy=160) RED CELL DISTRIBUTION WIDTH (BEAKER) (test 16.2 % 11.6-14.4 ujhg=457) PLATELET COUNT (BEAKER) (test xjlp=594) 164 K/CU MM 150-450 MEAN PLATELET VOLUME (BEAKER) (test ipnu=058) 10.1 fL 9.4-12.4 NUCLEATED RED BLOOD CELLS (BEAKER) (test 0 /100 WBC 0-0 elwf=752) (CELLAVISION MANUAL DIFF)2018-12-04 09:12:00 Test Item Value Reference Range Comments NEUTROPHILS - REL (CELLAVISION)(BEAKER) (test 70 % aujk=2153) LYMPHOCYTES - REL (CELLAVISION)(BEAKER) (test 16 % vhwl=7915) MONOCYTES - REL (CELLAVISION)(BEAKER) (test 8 % qdzb=9906) EOSINOPHILS - REL (CELLAVISION)(BEAKER) (test 3 % yfwc=3451) BASOPHILS - REL (CELLAVISION)(BEAKER) (test 1 % qedi=6180) MYELOCYTES - REL (CELLAVISION)(BEAKER) (test 1 % 0-0 fvxo=1747) ATYPICAL LYMPHOCYTES - REL (CELLAVISION)(BEAKER) 1 % 0-0 (test esgf=5324) NEUTROPHILS - ABS (CELLAVISION)(BEAKER) (test 4.06 K/ul 1.78-5.38 mfjp=7705) LYMPHOCYTES - ABS (CELLAVISION)(BEAKER) (test 0.93 K/ul 1.32-3.57 hcjl=5972) MONOCYTES - ABS (CELLAVISION)(BEAKER) (test 0.46 K/uL 0.30-0.82 qcbt=8616) EOSINOPHILS - ABS (CELLAVISION)(BEAKER) (test 0.17 K/uL 0.04-0.54 rqmd=3067) BASOPHILS - ABS (CELLAVISION)(BEAKER) (test 0.06 K/uL 0.01-0.08 oexq=0666) MYELOCYTES-ABS (CELLAVISION)(BEAKER) (test 0.06 K/uL 0.00-0.00 kvxt=7149) ATYPICAL LYMPHOCYTES - ABS (CELLAVISION)(BEAKER) 0.06 K/uL 0.00-0.00 (test xmsf=7163) TOTAL COUNTED (BEAKER) (test milp=0837) 100 SMUDGE CELLS (BEAKER) (test wmad=7253) Present GIANT PLATELETS (BEAKER) (test mbcw=660) Present ANISOCYTOSIS (BEAKER) (test yjhq=654) 1+ few PLATELET CONCENTRATION (CELLAVISION)(BEAKER) (test Adequate zibw=0914) Received comment: User comments: Slide comments:POCT-GLUCOSE [id number] 07: 45:00 Test Item Value Reference Range Comments POC-GLUCOSE METER (BEAKER) 176 mg/dL 70-110 TESTED AT [address] (test xunc=7488) [facility] [address] BASIC METABOLIC [id number] 04:24:00 Test Item Value Reference Range Comments SODIUM (BEAKER) (test 132 meq/L 136-145 gjvc=573) POTASSIUM (BEAKER) (test 4.2 meq/L 3.5-5.1 oocx=914) CHLORIDE (BEAKER) (test 102 meq/L 98-107 blqo=638) CO2 (BEAKER) (test 25 meq/L 22-29 umhx=818) BLOOD UREA NITROGEN 70 mg/dL 7-21 (BEAKER) (test uzgu=397) CREATININE (BEAKER) (test 2.07 mg/dL 0.57-1.25 xmtj=956) GLUCOSE RANDOM (BEAKER) 177 mg/dL 70-105 (test xqri=607) CALCIUM (BEAKER) (test 8.4 mg/dL 8.4-10.2 oghr=485) EGFR (BEAKER) (test mL/min/1.73 sq m INSUFFICIENT CLINICAL DATA kqnp=2706) TO CALCULATE ESTIMATED GFR. [id number] 04:20:00 Test Item Value Reference Range Comments MAGNESIUM (BEAKER) (test nxon=206) 2.0 mg/dL 1.6-2.6 POCT-GLUCOSE [id number] 00:32:00 Test Item Value Reference Range Comments POC-GLUCOSE METER (BEAKER) 257 mg/dL 70-110 TESTED AT [address] (test glkm=1305) [facility] [address] POCT-GLUCOSE [id number] 22:27:00 Test Item Value Reference Range Comments POC-GLUCOSE METER (BEAKER) 262 mg/dL 70-110 TESTED AT [address] (test lszz=6701) [facility] [address] POCT-GLUCOSE [id number] 22:09:00 Test Item Value Reference Range Comments POC-GLUCOSE METER (BEAKER) 302 mg/dL 70-110 Notified RYLEE OROPEZA/TESTED AT [facility] (test jxjz=3714) [address] [facility] [address] SPUTUM CULTURE + GRAM [id number] 15:41:00 Test Item Value Reference Range Comments CULTURE (BEAKER) (test Oropharyngeal contamination, zevw=9141) specimen rejected. Recollect requested. GRAM STAIN RESULT (BEAKER) 2+ gram positive cocci in pairs (test meya=7125) GRAM STAIN RESULT (BEAKER) 2+ gram negative rods (test ybmz=51768) GRAM STAIN RESULT (BEAKER) 2+ White blood cells seen (test pqor=53167) GRAM STAIN RESULT (BEAKER) >25 epithelial cells (test tyhw=809849) CT, [id number] 14:52:00FINAL REPORT CT abdomen and pelvis without [...] MDReport Verified Date/Time: 12/03/2018 14:52:09 Reading Location: [facility] Diagnostic Imaging Reading Room - [place] [address] RESPIRATORY PANEL [id number] 14:33: 00 Test Item Value Reference Range Comments HUMAN METAPNEUMOVIRUS (BEAKER) (test Not detected Not detected, Equivocal dyta=9636) RHINOVIRUS (BEAKER) (test iilc=1008) Not detected Not detected, Equivocal INFLUENZA A (BEAKER) (test ktsx=4308) Not detected Not detected, Equivocal INFLUENZA A (NO SUBTYPE) (test Not detected, Equivocal uxbs=6757) INFLUENZA A SUBTYPE H1 (BEAKER) (test Not detected, Equivocal tkct=9689) INFLUENZA A SUBTYPE H3 (BEAKER) (test Not detected, Equivocal tyie=3946) INFLUENZA A SUBTYPE H1-2009 (BEAKER) Not detected, Equivocal (test qvnr=0475) INFLUENZA B (BEAKER) (test jeiq=7808) Not detected Not detected, Equivocal RESPIRATORY SYNCYTIAL VIRUS (BEAKER) Not detected Not detected, Equivocal (test myho=7021) PARAINFLUENZA VIRUS 1 (BEAKER) (test Not detected Not detected, Equivocal qyak=6717) PARAINFLUENZA VIRUS 2 (BEAKER) (test Not detected Not detected, Equivocal wast=5243) PARAINFLUENZA VIRUS 3 (BEAKER) (test Not detected Not detected, Equivocal wjxq=2426) PARAINFLUENZA VIRUS 4 (BEAKER) (test Not detected Not detected, Equivocal grac=9073) ADENOVIRUS (BEAKER) (test uzjj=6010) Not detected Not detected, Equivocal CORONAVIRUS 229E (BEAKER) (test Not detected Not detected, Equivocal ipvi=1555) CORONAVIRUS HKU1 (BEAKER) (test Not detected Not detected, Equivocal jwru=2609) CORONAVIRUS NL63 (BEAKER) (test Not detected Not detected, Equivocal qmkr=2284) CORONAVIRUS OC43 (BEAKER) (test Not detected Not detected, Equivocal mdfa=7139) BORDETELLA PERTUSSIS (BEAKER) (test Not detected Not detected, Equivocal pind=4042) CHLAMYDOPHILA PNEUMONIAE (BEAKER) (test Not detected Not detected, Equivocal ndrc=1573) MYCOPLASMA PNEUMONIAE (BEAKER) (test Not detected Not detected, Equivocal qfxi=6256) Other viruses and bacteria not targeted by this PCR panel cannot be excluded; therefore clinical correlation and follow up of serology, culture results, and other molecular studies is required. The results are not intended to be used as the sole means for clinical diagnosis or patient management decisions. This sample was tested at the [facility] using the WHOOPArray Respiratory Panel. It is FDA cleared and has been verified and approved by the [facility] for clinical use on nasal swab specimens.OSMOLALITY, [id number] 11:50:00 Test Item Value Reference Range Comments OSMOLALITY URINE (BEAKER) (test tshd=619) 440 mOsm/kg 40-1,400 POCT-GLUCOSE [id number] 11:41:00 Test Item Value Reference Range Comments POC-GLUCOSE METER (BEAKER) 249 mg/dL 70-110 TESTED AT [address] (test gfrj=6760) [place] [id number] HEMOGLOBIN AND [id number] 10:05:00 Test Item Value Reference Range Comments HEMOGLOBIN (BEAKER) (test yvrp=221) 7.6 GM/DL 13.7-17.5 HEMATOCRIT (BEAKER) (test qkev=403) 24.2 % 40.1-51.0 POCT-GLUCOSE [id number] 06:35:00 Test Item Value Reference Range Comments POC-GLUCOSE METER (BEAKER) 192 mg/dL 70-110 TESTED AT [address] (test udhh=7983) [facility] [id number] VITAMIN B12 AND [id number] 06:34:00 Test Item Value Reference Range Comments VITAMIN B12 (BEAKER) (test neeb=812) 269 pg/mL 213-816 FOLATE (BEAKER) (test hove=692) 10.9 ng/mL >=7.0 IRON, TIBC, % SAT. (WITHOUT FERRITIN)2018-12-03 06:08:00 Test Item Value Reference Range Comments IRON (BEAKER) (test hurb=113) 9.0 ug/dL 40.0-160.0 TOTAL IRON BINDING CAPACITY (BEAKER) (test 269 ug/dL 250-450 wace=906) IRON % SATURATION (2) (BEAKER) (test agyu=8588) 3 % 20-55 VANCOMYCIN LEVEL, [id number] 04:52:00 Test Item Value Reference Range Comments VANCOMYCIN RANDOM (BEAKER) (test ypcw=647) 16.0 ug/mL Reference Range: No [id number] 04:42:00 Test Item Value Reference Range Comments MAGNESIUM (BEAKER) (test veyk=280) 2.3 mg/dL 1.6-2.6 BASIC METABOLIC [id number] 04:42:00 Test Item Value Reference Range Comments SODIUM (BEAKER) (test 137 meq/L 136-145 tmuq=810) POTASSIUM (BEAKER) (test 4.3 meq/L 3.5-5.1 rhno=461) CHLORIDE (BEAKER) (test 101 meq/L 98-107 czev=035) CO2 (BEAKER) (test 27 meq/L 22-29 yiry=464) BLOOD UREA NITROGEN 87 mg/dL 7-21 (BEAKER) (test owqh=236) CREATININE (BEAKER) (test 2.32 mg/dL 0.57-1.25 gvvi=058) GLUCOSE RANDOM (BEAKER) 167 mg/dL 70-105 (test uyhc=555) CALCIUM (BEAKER) (test 8.5 mg/dL 8.4-10.2 bebj=853) EGFR (BEAKER) (test mL/min/1.73 sq m INSUFFICIENT CLINICAL DATA sclg=6682) TO CALCULATE ESTIMATED GFR. LACTIC ACID, [id number] 04:23:00 Test Item Value Reference Range Comments LACTATE BLOOD VENOUS (2) (BEAKER) (test 0.7 mmol/L 0.5-2.2 mkha=9871) CBC (HEMOGRAM ONLY)2018-12-03 04:11:00 Test Item Value Reference Range Comments WHITE BLOOD CELL COUNT (BEAKER) (test zpic=962) 6.4 K/ L 3.5-10.5 RED BLOOD CELL COUNT (BEAKER) (test sgtc=363) 2.56 M/ L 4.63-6.08 HEMOGLOBIN (BEAKER) (test lfge=258) 7.7 GM/DL 13.7-17.5 HEMATOCRIT (BEAKER) (test lwrj=747) 23.8 % 40.1-51.0 MEAN CORPUSCULAR VOLUME (BEAKER) (test xfjq=089) 93.0 fL 79.0-92.2 MEAN CORPUSCULAR HEMOGLOBIN (BEAKER) (test 30.1 pg 25.7-32.2 aqnv=802) MEAN CORPUSCULAR HEMOGLOBIN CONC (BEAKER) (test 32.4 GM/DL 32.3-36.5 xpph=093) RED CELL DISTRIBUTION WIDTH (BEAKER) (test 16.4 % 11.6-14.4 efjo=898) PLATELET COUNT (BEAKER) (test qirs=402) 182 K/CU MM 150-450 MEAN PLATELET VOLUME (BEAKER) (test mrub=599) 10.4 fL 9.4-12.4 NUCLEATED RED BLOOD CELLS (BEAKER) (test 0 /100 WBC 0-0 rvxi=195) SPUTUM CULTURE + GRAM [id number] 03:30:00 Test Item Value Reference Range Comments CULTURE (BEAKER) (test Oropharyngeal contamination, scmu=7482) specimen rejected. Recollect requested. GRAM STAIN RESULT (BEAKER) <1+ White blood cells seen (test ptkm=2179) GRAM STAIN RESULT (BEAKER) 5-10 epithelial cells (test uayz=68912) GRAM STAIN RESULT (BEAKER) 4+ gram negative rods (test lwhh=63914) GRAM STAIN RESULT (BEAKER) 3+ gram positive rods (test jpbs=627512) GRAM STAIN RESULT (BEAKER) 1+ gram positive cocci in pairs (test elnb=825723) POCT-GLUCOSE [id number] 23:26:00 Test Item Value Reference Range Comments POC-GLUCOSE METER (BEAKER) 215 mg/dL 70-110 TESTED AT [address] (test dpwn=3650) [facility] [address] HEMOGLOBIN AND [id number] 23:25:00 Test Item Value Reference Range Comments HEMOGLOBIN (BEAKER) (test adig=108) 7.5 GM/DL 13.7-17.5 HEMATOCRIT (BEAKER) (test lrja=135) 23.3 % 40.1-51.0 U/S, ABDOMINAL, [id number] 18:44:00Please do kidney as well Reason for [...] MDReport Verified Date/Time: 12/02/2018 18:44:56 Reading Location: [address] Transitional Reading Room U/S , PELVIC, [id number] 18:44:00Please do kidney as well Reason for [...] MDReport Verified Date/Time: 12/02/2018 18:44:56 Reading Location: [address] Reading Room POCT-GLUCOSE [id number] 18:12:00 Test Item Value Reference Range Comments POC-GLUCOSE METER (BEAKER) 267 mg/dL 70-110 TESTED AT [address] (test mtky=5182) [place] [id number] POCT-GLUCOSE [id number] 17:34:00 Test Item Value Reference Range Comments POC-GLUCOSE METER (BEAKER) 257 mg/dL 70-110 TESTED AT [address] (test upqf=9792) [facility] [address] BASIC METABOLIC [id number] 15:14:00 Test Item Value Reference Range Comments SODIUM (BEAKER) (test 130 meq/L 136-145 ewri=705) POTASSIUM (BEAKER) (test 4.8 meq/L 3.5-5.1 rfje=259) CHLORIDE (BEAKER) (test 96 meq/L 98-107 pdau=658) CO2 (BEAKER) (test 28 meq/L 22-29 brpw=008) BLOOD UREA NITROGEN 91 mg/dL 7-21 (BEAKER) (test tmfc=411) CREATININE (BEAKER) (test 2.13 mg/dL 0.57-1.25 fdjh=100) GLUCOSE RANDOM (BEAKER) 262 mg/dL 70-105 (test dnti=487) CALCIUM (BEAKER) (test 8.2 mg/dL 8.4-10.2 daxl=927) EGFR (BEAKER) (test mL/min/1.73 sq m INSUFFICIENT CLINICAL DATA wfkd=4800) TO CALCULATE ESTIMATED GFR. LACTIC ACID, [id number] 14:55:00 Test Item Value Reference Range Comments LACTATE BLOOD VENOUS (2) 1.4 mmol/L 0.5-2.2 Specimen slightly hemolyzed (BEAKER) (test qtqn=8443) CBC (HEMOGRAM ONLY)2018-12-02 14:45:00 Test Item Value Reference Range Comments WHITE BLOOD CELL COUNT (BEAKER) (test jbjg=314) 10.9 K/ L 3.5-10.5 RED BLOOD CELL COUNT (BEAKER) (test eyah=359) 2.34 M/ L 4.63-6.08 HEMOGLOBIN (BEAKER) (test ryzz=805) 7.0 GM/DL 13.7-17.5 HEMATOCRIT (BEAKER) (test gugr=854) 21.5 % 40.1-51.0 MEAN CORPUSCULAR VOLUME (BEAKER) (test nigf=595) 91.9 fL 79.0-92.2 MEAN CORPUSCULAR HEMOGLOBIN (BEAKER) (test 29.9 pg 25.7-32.2 citm=075) MEAN CORPUSCULAR HEMOGLOBIN CONC (BEAKER) (test 32.6 GM/DL 32.3-36.5 rgrb=089) RED CELL DISTRIBUTION WIDTH (BEAKER) (test 17.0 % 11.6-14.4 iwry=352) PLATELET COUNT (BEAKER) (test eslx=691) 209 K/CU MM 150-450 MEAN PLATELET VOLUME (BEAKER) (test fvfy=720) 10.9 fL 9.4-12.4 NUCLEATED RED BLOOD CELLS (BEAKER) (test 0 /100 WBC 0-0 hqqq=196) LACTIC ACID, [id number] 12:59:00 Test Item Value Reference Range Comments LACTATE BLOOD VENOUS (2) (BEAKER) (test 1.8 mmol/L 0.5-2.2 iztq=8317) LEGIONELLA ANTIGEN, [id number] 12:41:00 Test Item Value Reference Range Comments L. PNEUMOPHILA SEROGP 1 Negative - see Negative for L. UR AG (BEAKER) (test comment pneumophila serogroup 1 wzoz=0907) antigen, suggesting no recent or current infection with this serogroup. Legionellosis cannot be ruled out since other serogroups and species may cause disease. STREP PNEUMONIAE [id number] 12:40:00 Test Item Value Reference Range Comments STREP PNEUMONIAE ANTIGEN Presumptive negative for Presumptive negative for (BEAKER) (test pneumococcal pneumonia - pneumococcal pneumonia - ohjo=2129) see comment see commen Presumptive negative for pneumococcal pneumonia, suggesting no current or recent pneumococcal infection. Infection due to S. pneumoniae cannot be ruled out since the antigen present in the sample may be below the detection limit of the test.RAPID INFLUENZA A&B [id number] 12:39:00 Test Item Value Reference Range Comments RAPID INFLUENZA A AG (BEAKER) (test Negative Negative, Inconclusive bcra=5954) RAPID INFLUENZA B AG (BEAKER) (test Negative Negative, Inconclusive iagu=9566) CREATININE, RANDOM [id number] 12:38:00 Test Item Value Reference Range Comments CREATININE URINE (BEAKER) (test kkmd=800) 65.1 mg/dL Reference Range: No NormalsSODIUM, RANDOM [id number] 12:38:00 Test Item Value Reference Range Comments SODIUM URINE (BEAKER) (test gohj=332) < meq/L Reference Range: No [id number] 10:58:00 Test Item Value Reference Range Comments PROCALCITONIN (BEAKER) (test mvrw=5489) 5.05 ng/mL <0.05 SEPSIS RISK (ng/mL)Low: 0.05-0.50Intermediate: 0.51-2.00High: & gt;=2.01B-TYPE NATRIURETIC FACTOR (BNP)2018-12-02 10:02:00 Test Item Value Reference Range Comments B-TYPE NATRIURETIC PEPTIDE (BEAKER) (test 201 pg/mL 0-100 easx=812) URINALYSIS W/ REFLEX URINE [id number] 10:00:00 Test Item Value Reference Range Comments COLOR (BEAKER) (test ddws=050) Light Yellow CLARITY (BEAKER) (test fcpy=604) Clear SPECIFIC GRAVITY UA (BEAKER) (test vmgu=277) 1.024 1.001-1.035 PH UA (BEAKER) (test nzos=183) 5.0 5.0-8.0 PROTEIN UA (BEAKER) (test eyhk=627) Negative Negative GLUCOSE UA (BEAKER) (test nnkn=266) 100 mg/dL Negative KETONES UA (BEAKER) (test tbfg=635) Negative Negative BILIRUBIN UA (BEAKER) (test nfmr=257) Negative Negative BLOOD UA (BEAKER) (test qpqe=729) Negative Negative NITRITE UA (BEAKER) (test hikb=598) Negative Negative LEUKOCYTE ESTERASE UA (BEAKER) (test nadp=260) Moderate Negative UROBILINOGEN UA (BEAKER) (test zomw=401) 0.2 mg/dL 0.2-1.0 RBC UA (BEAKER) (test dkyj=713) < /HPF WBC UA (BEAKER) (test mkwt=753) 13 /HPF BACTERIA (BEAKER) (test kkux=575) Rare SQUAMOUS EPITHELIAL (BEAKER) (test cjoz=424) 1 /HPF HYALINE CASTS (BEAKER) (test cuoj=554) 2 /LPF CRYSTALS, URINE (BEAKER) (test kopj=2014) Rare SOURCE(BEAKER) (test zmny=3086) PROTHROMBIN [id number] 09:44:00 Test Item Value Reference Range Comments PROTIME (BEAKER) (test qerh=451) 14.4 seconds 11.7-14.7 INR (BEAKER) (test legy=221) 1.2 <=5.9 RECOMMENDED COUMADIN/WARFARIN INR THERAPY RANGESSTANDARD DOSE: 2.0 - 3.0 Includes: PROPHYLAXIS forvenous thrombosis, systemic embolization; TREATMENT for venous thrombosis and/or pulmonary embolus.HIGH RISK: Target INR is 2.5-3.5 for patients with mechanical heart valves.[id number] 09:44:00 Test Item Value Reference Range Comments PARTIAL THROMBOPLASTIN TIME (BEAKER) (test 28.1 seconds 22.5-36.0 tlfa=232) POCT-LACTIC ACID, [id number] 09:33:00 Test Item Value Reference Range Comments POC-LACTIC ACID, VENOUS 2.5 mmol/L 0.9-1.7 TESTED AT [facility] [address] (BEAKER) (test quwo=3749) [facility] [address] POCT-BLOOD GASES, [id number] 09:33:00 Test Item Value Reference Range Comments TEMP, CELSIUS-POC (BEAKER) 37.0 (test qqdf=3474) FIO2-POC (BEAKER) (test TESTED AT [address] qwge=2294) [place] [address] PH, ARTERIAL-POC (BEAKER) 7.357 7.350-7.450 (test njep=6829) PCO2, ARTERIAL-POC (BEAKER) 49.5 mm Hg 35.0-45.0 (test lubz=8888) PO2, ARTERIAL-POC (BEAKER) 28.0 mm Hg 80.0-90.0 (test thus=1003) SO2, ARTERIAL-POC (BEAKER) 49.0 % 96.0-97.0 (test cbdz=1268) HCO3, ARTERIAL-POC (BEAKER) 27.7 meq/L 21.0-29.0 (test pgak=6603) BASE EXCESS, ARTERIAL-POC 2.0 meq/L -2.0-3.0 (BEAKER) (test tawa=5401) [id number] 09:33:00 Test Item Value Reference Range Comments POC-SODIUM (BEAKER) (test 130 meq/L 135-148 TESTED AT [address] lzpo=6102) [place] [address] [id number] 09:33:00 Test Item Value Reference Range Comments POC-POTASSIUM (BEAKER) (test 5.4 meq/L 3.6-5.5 TESTED AT [address] jiyi=1878) [place] [address] [id number] 09:33:00 Test Item Value Reference Range Comments POC-GLUCOSE (BEAKER) (test 413 mg/dL 70-110 TESTED AT [address] zcnw=7719) [place] [address] POCT-CALCIUM [id number] 09:33:00 Test Item Value Reference Range Comments POC-CALCIUM IONIZED (BEAKER) 1.11 mmol/L 1.12-1.27 TESTED AT [address] (test rrsh=2429) [place] [address] [id number] 09:33:00 Test Item Value Reference Range Comments POC-HEMATOCRIT (BEAKER) (test 23 % 40-50 TESTED AT [address] qgmn=2761) [place] [address] [id number] 09:33:00 Test Item Value Reference Range Comments POC-HEMOGLOBIN (BEAKER) 7.8 g/dL 13.0-16.8 TESTED AT [place] [id number] [facility] (test mfhr=3880) [facility] [id number] AT [facility] [address] [facility] [address] CBC (HEMOGRAM ONLY)2018-12-02 09:32:00 Test Item Value Reference Range Comments WHITE BLOOD CELL COUNT (BEAKER) (test tjfe=023) 16.6 K/ L 3.5-10.5 RED BLOOD CELL COUNT (BEAKER) (test ymkr=114) 2.67 M/ L 4.63-6.08 HEMOGLOBIN (BEAKER) (test bxhn=434) 7.8 GM/DL 13.7-17.5 HEMATOCRIT (BEAKER) (test udeq=037) 24.7 % 40.1-51.0 MEAN CORPUSCULAR VOLUME (BEAKER) (test tgaz=984) 92.5 fL 79.0-92.2 MEAN CORPUSCULAR HEMOGLOBIN (BEAKER) (test 29.2 pg 25.7-32.2 ttwy=171) MEAN CORPUSCULAR HEMOGLOBIN CONC (BEAKER) (test 31.6 GM/DL 32.3-36.5 vohn=823) RED CELL DISTRIBUTION WIDTH (BEAKER) (test 16.7 % 11.6-14.4 segc=602) PLATELET COUNT (BEAKER) (test ctab=270) 257 K/CU MM 150-450 MEAN PLATELET VOLUME (BEAKER) (test xnyr=814) 11.1 fL 9.4-12.4 NUCLEATED RED BLOOD CELLS (BEAKER) (test 0 /100 WBC 0-0 duht=093) RAD, CHEST, 1 VIEW, NON [id number] 08:46:00Reason for exam:->chf, leukocytosisShould this be performed at the bedside?->YesFINAL REPORT INDICATION: chf, leukocytosis COMPARISON: None TECHNIQUE : Singlefrontal view of the chest. FINDINGS: Lungs and pleura: Clear lungs. No effusion.Heart and mediastinum: Normal heart size. Unremarkable mediastinal contours.Osseous structures: No acute abnormality.Other: None. IMPRESSION: No acute intrathoracic abnormality. Signed: Colby Avila MDReport Verified Date/ Time: 12/02/2018 08:46:49 Reading Location: [facility] C013V Neuro Reading Room POCT-GLUCOSE [id number] 07:49:00 Test Item Value Reference Range Comments POC-GLUCOSE METER (BEAKER) 411 mg/dL 70-110 TESTED AT [facility] [address] [facility] (test jrue=7975) [facility] [address] [id number] 01:42:00 Test Item Value Reference Range Comments MAGNESIUM (BEAKER) (test rdxi=155) 2.4 mg/dL 1.6-2.6 BASIC METABOLIC [id number] 01:42:00 Test Item Value Reference Range Comments SODIUM (BEAKER) (test 134 meq/L 136-145 fpfc=477) POTASSIUM (BEAKER) (test 4.3 meq/L 3.5-5.1 ojrw=715) CHLORIDE (BEAKER) (test 96 meq/L 98-107 gxkx=666) CO2 (BEAKER) (test 25 meq/L 22-29 buhd=429) BLOOD UREA NITROGEN 85 mg/dL 7-21 (BEAKER) (test xsyz=544) CREATININE (BEAKER) (test 2.05 mg/dL 0.57-1.25 bfjt=906) GLUCOSE RANDOM (BEAKER) 395 mg/dL 70-105 (test dzfo=063) CALCIUM (BEAKER) (test 8.4 mg/dL 8.4-10.2 mtgb=624) EGFR (BEAKER) (test mL/min/1.73 sq m INSUFFICIENT CLINICAL DATA kugs=6714) TO CALCULATE ESTIMATED GFR. CBC (HEMOGRAM ONLY)2018-12-02 01:40:00 Test Item Value Reference Range Comments WHITE BLOOD CELL COUNT (BEAKER) (test zgdb=980) 19.0 K/ L 3.5-10.5 RED BLOOD CELL COUNT (BEAKER) (test xexa=807) 2.42 M/ L 4.63-6.08 HEMOGLOBIN (BEAKER) (test hhnf=088) 7.3 GM/DL 13.7-17.5 HEMATOCRIT (BEAKER) (test uknh=957) 22.3 % 40.1-51.0 MEAN CORPUSCULAR VOLUME (BEAKER) (test igbc=956) 92.1 fL 79.0-92.2 MEAN CORPUSCULAR HEMOGLOBIN (BEAKER) (test 30.2 pg 25.7-32.2 tbse=376) MEAN CORPUSCULAR HEMOGLOBIN CONC (BEAKER) (test 32.7 GM/DL 32.3-36.5 bnqs=040) RED CELL DISTRIBUTION WIDTH (BEAKER) (test 17.3 % 11.6-14.4 drbz=766) PLATELET COUNT (BEAKER) (test fgyf=833) 283 K/CU MM 150-450 MEAN PLATELET VOLUME (BEAKER) (test gkrq=975) 10.7 fL 9.4-12.4 NUCLEATED RED BLOOD CELLS (BEAKER) (test 0 /100 WBC 0-0 xfiu=625) POCT-GLUCOSE [id number] 00:51:00 Test Item Value Reference Range Comments POC-GLUCOSE METER (BEAKER) 425 mg/dL 70-110 Notified RYLEE OROPEZA/TESTED AT [facility] (test vdpw=7077) [address] [facility] [address]
[2019-02-06] MEDS ORDERED: Mastisol Adhesive Liq ONE (12:36)
[2019-02-06 12:48] LABS: Absolute Lymphocytes (CBC) 4.1 K/uL (0.7-4.9); Basophils % 0.5 % (0-1.3); Eosinophils % 0.5 % (0-4.4); Hematocrit 18.6 % (39.6-49.0); Lymphocytes % 26.9 % (15.3-44.8); MPV 9.1 fL (7.6-11.3); Monocytes % 6.3 % (3.3-12.3); RBC Red Blood Cell Count 1.99 M/uL (4.33-5.43)
[2019-02-06 12:51] LABS: Protime INR 1.21
--- NOTE | 2019-02-06 12:51 | RAD REPORT ---
EXAM DESCRIPTION: [place] Single View02/06/2019 12:38 pm CLINICAL HISTORY: sob COMPARISON: none FINDINGS: The lungs appear clear of acute infiltrate. The heart is mildly enlarged IMPRESSION: No acute abnormalities displayed
[2019-02-06 13:05] LABS: ALT/SGPT 27 U/L (12-78); AST/SGOT 18 U/L (15-37); Albumin 2.8 g/dL (3.4-5.0); Alkaline Phosphatase 103 U/L (45-117); BUN Blood Urea Nitrogen 87 mg/dL (7-18); Bicarbonate 26 mmol/L (21-32); Bilirubin Direct < 0.1 mg/dL (0-0.2); Bilirubin Total 0.4 mg/dL (0.2-1.0); Glucose Level 332 mg/dL (74-106); Magnesium 3.2 mg/dL (1.8-2.4); NT PRO-BNP 308 pg/mL (<125); Potassium 5.5 mmol/L (3.5-5.1); Protein, Total 6.4 g/dL (6.4-8.2); Sodium Level 139 mmol/L (136-145); Troponin (Emerg Dept Use Only) < 0.02 ng/mL (0.0-0.045)
[2019-02-06] MEDS ORDERED: MIDAZOLAM HCL 2 MG/2 ML INJ ONE (13:12)
[2019-02-06] MEDS ORDERED: RSI MEDICATION KIT IV ONE (13:12)
[2019-02-06] MEDS ORDERED: NA CHLORIDE 0.9% 0 ML ONE (13:12)
[2019-02-06] MEDS ORDERED: NA CHLORIDE 0.9% 1,000 ML ONE ×2 (13:13→13:52)
[2019-02-06] MEDS ORDERED: NA CHLORIDE 0.9% 250 ML ONE (13:23)
[2019-02-06 13:33] LABS: Arterial Blood Carboxyhemoglob 1.2 % (0-1.5)
[2019-02-06] MEDS ORDERED: PANTOPRAZOLE INJ 80 MG in NA CHLORIDE 0.9% 250 ML IV ONE (14:00)
[2019-02-06] MEDS ORDERED: PANTOPRAZOLE 40 MG INJ ONE (14:08)
[2019-02-06] MEDS ORDERED: FUROSEMIDE 40 MG/4 ML VIAL ONE ×2 (14:27→14:57)
--- NOTE | 2019-02-06 16:00 | EKG ---
Test Date: 2019-02-06 Test Time: 12:18:56 Felling Machine Operator: BERNICE MEASUREMENT RESULTS: Intervals: Rate: 78 KS: 154 QRSD: 86 QT: 426 QTc: 485 [place]: P: KS: 154 QRS: 73 T: 65 INTERPRETIVE STATEMENTS: Normal sinus rhythm ST abnormality, possible digitalis effect Prolonged QT Abnormal ECG Compared to ECG 12/01/2018 13:34:17 ST (T wave) deviation now present Prolonged QT interval now present Sinus tachycardia no longer present Electronically Signed On 02-06-19 15:59:47 CDT by Bertram Welch
[2019-02-06 17:57] LABS: Absolute Lymphocytes (CBC) 2.2 K/uL (0.7-4.9); Basophils % 0.3 % (0-1.3); Monocytes % 6.4 % (3.3-12.3); RBC Red Blood Cell Count 3.37 M/uL (4.33-5.43)
[2019-02-06 18:26] LABS: Potassium 6.3 mmol/L (3.5-5.1)
[2019-02-06 18:41] LABS: Hematocrit 31.7 % (39.6-49.0)
[2019-02-06 18:47] LABS: Anisocytosis 1+; Blood Morphology Comment NOTED (NOT SEEN); Hypochromasia 1+; Platelet Estimate ADEQ; Polychromasia SLIGHT
--- NOTE | 2019-02-06 18:50 | ER ---
Nurse's Notes [facility] Name: Jethro Burden Age: 73 yrs Sex: Male : 1945 Arrival Date: 02/06/2019 Time: 12:17 Bed 2 Private MD: Diagnosis: Anemia, unspecified;Shortness of breath;Weakness;Hyperkalemia Presentation: 02/06 12:12 Presenting complaint: EMS states: pt from home c/o sob, he was 76-80 on RA at home, pt tw2 give a\T\a tx, we placed him in brief and noted blood in stools, 20G LEFT ac. Transition of care: patient was not received from another setting of care. Onset of symptoms was February 06, 2019. Risk Assessment: Do you want to hurt yourself or someone else? Patient reports no desire to harm self or others. Care prior to arrival: Medication(s) given: Albuterol Neb Atrovent Neb x 1, IV initiated. 20 GA, in the left antecubital area. 12:12 Method Of Arrival: EMS: [facility] tw2 12:12 Acuity: TAN 1 tw2 15:01 Initial Sepsis Screen: Does the patient meet any 2 criteria? RR > 20 per min. Temp tw2 <36.0*C (96.8*F)) or > 38.3*C (100.9*F). Does the patient have a suspected source of infection? Yes: Other: pt appears pale, unknown source of infection, family reports previous GI bleed. Triage Assessment: 12:20 General: Appears distressed. Respiratory: Reports shortness of breath Onset: The tw2 symptoms/episode began/occurred this morning, the patient has severe shortness of breath. Historical: - Allergies: 12:58 NKDA; sg - Home Meds: 15:00 albuterol sulfate 2.5 mg /3 mL (0.083 %) Inhl nebu 3 mL Q4H prn [Active]; apixaban 5 mg tw2 Oral 1 tab 2 times per day [Active]; aspirin 81 mg Oral TbEC 1 tab once daily [Active]; atorvastatin 80 mg Oral tab 0.5 tab once daily [Active]; budesonide 3 mg Oral CECX 3 caps once daily [Active]; budesonide-formoterol inhalation 2 puffs 2 times per day [Active]; docusate sodium 100 mg Oral cap 1 cap 2 times per day [Active]; ferrous gluconate 324 mg (36 mg iron) Oral tab twice a day [Active]; furosemide 40 mg Oral tab 3 tabs in am and 2 tabs in pm [Active]; insulin aspart subcutaneous 35 unit three times a day [Active]; finasteride 5 mg Oral tab 1 tab once daily [Active]; gabapentin 100 mg Oral cap 1 caps 3 times per day [Active]; losartan 100 mg Oral tab 1 tab once daily [Active]; magnesium oxide 420 mg Oral tab daily [Active]; pantoprazole 40 mg Oral TbEC 1 tab once daily [Active]; sotalol 120 mg Oral tab 1 tab 2 times per day [Active]; potassium chloride 10 mEq Oral cpER 2 caps once daily [Active]; metoprolol tartrate 50 mg Oral tab 1 tab once daily [Active]; ipratropium bromide 0.02 % inhalation soln 2.5 mL every 6 hours [Active]; insulin detemir subcutaneous 70 units in am and 45 units in pm [Active]; - PMHx: 15:00 Atrial Fib; CHF; prostate problems; chronic wounds; COPD; Crohn's; Depression; tw2 Hypertension; Diabetes - IDDM; Hyperlipidemia; - Immunization history:: Adult Immunizations. - Social history:: Smoking status: . - Ebola Screening: : Patient denies travel to an Ebola-affected area in the 21 days before illness onset. Screenin:48 Abuse screen: Denies threats or abuse. Nutritional screening: No deficits noted. tw2 Tuberculosis screening: No symptoms or risk factors identified. Fall Risk Secondary diagnosis (15 points) impaired mobility. Assessment: 12:20 General: Appears distressed, Behavior is anxious. Pain: Denies pain. Neuro: Level of tw2 Consciousness is obeys commands, Oriented to person, situation. Cardiovascular: Heart tones S1 S2 Patient's skin is warm and dry. Rhythm is regular. Respiratory: Airway is patent Respiratory effort is labored, using tripod position, Respiratory pattern is regular, tachypnea Breath sounds are diminished bilaterally. GI: Abdomen is round distended, Bowel sounds present X 4 quads. : No signs and/or symptoms were reported regarding the genitourinary system. EENT: No signs and/or symptoms were reported regarding the EENT system. Derm: Skin is pale. Musculoskeletal: Amputation of b/l BKA noted. 12:58 Reassessment: provider notified of low BP at this time, intubation ordered at this time.tw2 13:15 Reassessment: SEE BLOOD TRANFUSION RECORD sheet in pts chart. tw2 13:25 Reassessment: pt moving at this time, medicated as ordered. tw2 13:30 Reassessment: Patient and/or family updated on plan of care and expected duration. Pain tw2 level reassessed. 13:30 Reassessment: Dr. Gonzales at bedside with unsuccessful attempt at art line to Right tw2 groin area at this time. 5# sand bag placed over pressure dressing at this time. Reassessment: Patient appears in no apparent distress at this time. pt still at this time. 14:00 Reassessment: Patient appears in no apparent distress at this time. No changes from tw2 previously documented assessment. Patient and/or family updated on plan of care and expected duration. Pain level reassessed. 15:59 Reassessment: Patient and/or family updated on plan of care and expected duration. Pain tw2 level reassessed. dr. Gonzales at bedside at this time discussing poc. 17:35 Reassessment: dr gonzales at bedside with RT pt to be extubated at this time. pt placed tw2 on venturi mask by RT at this time, will continue to monitor. 17:55 General: Appears in no apparent distress. Behavior is cooperative. Neuro: Level of tw2 Consciousness is obeys commands, Oriented to person. Respiratory: Airway is patent Respiratory effort is even, unlabored, Respiratory pattern is regular, symmetrical. 19:09 Reassessment: pt transport to CT via stretcher on monitor, on oxygen with RYLEE Lua and tw2 Jose CT at this time. 19:25 Reassessment: returned from CT pt with agonal respirations BP decreased to 68/[address] Gonzales notified, code called pt's family at bedside states pt does not want any life-saving meaures pt time of called by Dr Gonzales at 1927. 22:22 Reassessment: family remain at bedside [facility] here for transport of pt to [place], [place]. Vital Signs: 12:18 Resp 30; Temp 95.8(TE); Pulse Ox 76% on R/A; tw2 12:26 BP 111 / 56; Pulse 77; Pulse Ox 83% on BiPAP, 14/7 rate 20 at 100%,; tw2 12:52 BP 76 / 62; Pulse 71; Resp 20; Pulse Ox 100% on BiPAP; tw2 13:03 BP 109 / 72; Pulse 66; Resp 32; Pulse Ox 74% on BVM; tw2 13:06 BP 84 / 61; Pulse 66; Resp 15; Pulse Ox 100% on ETT vent; tw2 13:15 BP 98 / 64; Pulse 67; Resp 16; Pulse Ox 100% on ETT vent; tw2 13:30 BP 169 / 69; Pulse 65; Resp 16; Pulse Ox 100% ; sv 14:20 Temp 94.2(C); sv 14:25 BP 123 / 62; Pulse 64; Resp 16; Pulse Ox 100% on ETT vent; tw2 14:50 BP 109 / 64; Pulse 61; Resp 16; Temp 94.8(C); Pulse Ox 100% on 50% FiO2 ETT vent; sv 15:20 BP 94 / 60; Pulse 58; Resp 16; Temp 95.1(C); Pulse Ox 100% on ETT vent; tw2 15:35 BP 94 / 61; Pulse 56; Resp 16; Pulse Ox 100% on ETT vent; tw2 15:55 BP 99 / 58; Pulse 57; Resp 16; Pulse Ox 100% on ETT vent; tw2 16:15 BP 95 / 54; Pulse 59; Resp 17; Pulse Ox 100% on ETT vent; tw2 16:30 BP 95 / 54; Pulse 62; Resp 19; Pulse Ox 100% on ETT vent; tw2 16:36 Temp 96.2(C); sv 17:00 BP 100 / 60; Pulse 65; Resp 16; Pulse Ox 100% on ETT vent; sv 17:46 Pulse Ox 100% on Venturi mask; tw2 17:46 BP 135 / 63; Pulse 78; Resp 25; Temp 97.6(C); Pulse Ox 99% on 50% Venturi mask; sv 18:28 BP 104 / 61; Pulse 80; Resp 13; Pulse Ox 100% on 50% Venturi mask; sv 19:00 BP 78 / 54; Pulse 74; Resp 16 S; Temp 98.6(C); Pulse Ox 96% on 15% Venturi mask; bb 19:25 BP 68 / 52; Resp 8 S; Temp 98.6(C); bb 12:18 dr. gonzales at bedside, bipap ordered, pt placed on venturi mask, pt skin remains cold, tw2 unable to maintain steady pulse ox monitoring, provider aware 12:26 unable to obtain accurate o2 sat at this time, pts hands are cold, pt has b/l BKA, pts tw2 ears are cold and bipap mask is on 12:52 provider notified of low BP, per [place],RT pts o2 sat via abg was 100% tw2 13:03 not a good o2 waveform or reading at this time. RT at bedside tw2 14:20 Bare hugger placed on pt. sv 14:50 AC, rate-16, TV-500, PEEP-5 sv 17:46 50% at 15 tw2 ED Course: 12:17 Patient arrived in ED. tw2 12:17 Forrest Gonzales MD is Attending Physician. kdr 12:17 Arm band placed on. tw2 12:21 Triage completed. tw2 12:23 EKG done, by film laboratory technician. reviewed by Forrest Gonzales MD. dt2 12:24 BIPAP Sent. tw2 12:27 Inserted saline lock: 20 gauge in right antecubital area, using aseptic technique. ss Blood collected. 12:34 XRAY Chest (1 view) In Process Unspecified. EDMS 12:51 Maria Esther Hartley RN is Primary Nurse. tw2 12:55 Patient has correct armband on for positive identification. and Idania SHELTON sg notified of pt HGB and Hematocrit results 6.1 hgb and hematocrit 18.1. 13:03 Assisted provider with intubation using 7.5 mm ETT via oral route. ET tube secured at tw2 23cm at the teeth. Set up intubation tray. Intubated by Forrest Gonzales MD Placement verified by CO2 detector w/ + color change, auscultating bilateral breath sounds, Patient tolerated well. Assist ventilation with Ambu bag. 13:12 14F OG tube placed at this time, verified by auscultation by RYLEE Kline. tw2 13:30 Assisted provider with central line placement. Set up central line tray. 1 unsuccessful tw2 attempts at central line by CAT Rausch at this time. 1 unsuccessful attempt at central line per Dr. Gonzales at this time Before procedure, did Practitioner(s) obtain informed consent? Yes. 14:00 Eisenberg cath inserted, using sterile technique, 18 Fr., by me, returned scant amount. tw2 Patient tolerated well. RYLEE Moreland at bedside at this time. 16:48 ABG Sent. sv 19:06 Report given to RYLEE Lua. tw2 19:13 CT Abd/Pelvis - Without Contrast In Process Unspecified. EDMS Restraints: 14:30 Non-Violent Restraint: Order obtained. Initiated on February 06, 2019 at 14:30 Unable to sv provide Restraint education. Pt intubated. Actions/Behavior observed: has difficulty remembering/follow instructions, has impaired decision making, has decreased level of consciousness, unable to follow instructions, Less restrictive alternatives attempted: decrease environmental stimuli, placed near Nurse station, repositioned, lines/tubes covered, eliminated unnecessary lines/tubes, Alternative interventions: Ineffective. Clinical justification for use: airway protection, line protection, patient safety, Mental status: patient asleep, Cognition: Unable to assess. poor judgement, poor safety awareness, impulsive, poor attention/concentration, unable to follow commands, short term memory loss, Circulation: Within defined parameters (based on Cardiovascular assessment) Skin integrity: Within defined parameters (based on Integumentary assessment) Signs of injury related to restraint: No injuries noted. Hydration/Food: patient asleep. Elimination/Hygiene: with urinary catheter, Restraint status: Side rails up x 4 Started. Soft wrist restraint (Right) Started. Soft wrist restraint (Left) Started. Criteria to discontinue Restraint not met. Restraint continued. 17:35 Non-Violent Restraint: Restraint Discontinued on February 06, 2019 at 17:35 Effective tw2 alternative interventions implemented: eliminated unnecessary lines/tubes. Administered Medications: 13:01 Drug: Etomidate 20 mg Route: IVP; Site: right antecubital; tw2 13:01 Drug: Succinylcholine 100 mg Route: IVP; Site: right antecubital; tw2 13:27 Drug: VecuroNIUM 10 mg Route: IVP; Site: right antecubital; tw2 14:15 Drug: Lasix 40 mg Route: IVP; Site: left antecubital; tw2 19:08 Follow up: Response: No adverse reaction tw2 14:17 Drug: ProTONIX 8 mg/hr Route: IV; Rate: 25 ml/hr; Site: left antecubital; tw2 14:46 Drug: Lasix 40 mg Route: IVP; Site: left antecubital; sv 19:07 Follow up: Response: No adverse reaction tw2 21:00 CANCELLED (Inappropriate at this time): D50W 50 ml IVP once; (1 amp) bb 21:00 CANCELLED (Inappropriate at this time): LevaQUIN 500 mg 100 ml IVPB once over 60 mins bb 21:00 CANCELLED (Inappropriate at this time): Flagyl 500 mg 100 ml IVPB at 200 ml/hr once bb over 30 mins 21:01 CANCELLED (Inappropriate at this time): Albuterol 2.5 mg Inhalation once; Repeat for a bb total of three doses 21:01 CANCELLED (Inappropriate at this time): Calcium Gluconate 1 grams IVPB once over 60 bb mins; (mix in NS 100 mL) 21:01 CANCELLED (Inappropriate at this time): Sodium Bicarbonate 1 amp IVP once; (50 mL); bb equals 50 mEq 21:01 CANCELLED (Inappropriate at this time): Insulin Regular Human 10 units IVP once bb Intake: 13:22 appears to be blood, OG placed to intermittent suction at this time. tw2 Output: 13:22 Gastric: 400ml (OGT); Total: 400ml. tw2 16:22 Gastric: 150ml (OGT); Total: 550ml. tw2 13:22 appears to be blood, OG placed to intermittent suction at this time. tw2 Ventilator: 14:53 Fi02: 50%; Rate: 16min; T.V.: 500ml; Peep: 5cm; Mode: CMV; sv Outcome: 18:49 ER care complete, transfer ordered by . kdr 19:27 Patient : Time of 19:27 Pronounced by Forrest skaggs notified 22:23 Patient left the ED. bb Signatures: Dispatcher [employer] Merly Dukes RN RN sv Gay, Steven, RN RN sg Rittger, Kevin, MD MD kdr Ballard, Brenda, RN RN bb Smirch, Shelby, RN RN ss Wise Maria Esther, RN RN tw2 Elana Sloan dt2 Corrections: (The following items were deleted from the chart) 13:24 12:18 Resp 30bpm; Pulse Ox 76% RA; dr. gonzales at bedside, bipap ordered, pt placed on tw2 venturi mask; tw2 17:54 17:35 Reassessment: dr gonzales at bedside with RT pt to be extubated at this time. tw2 tw2
--- NOTE | 2019-02-06 18:51 | EDPHYS ---
Physician Documentation [facility] [place] Name: Jethro Burden Age: 73 yrs Sex: Male : 1945 Arrival Date: 02/06/2019 Time: 12:17 Bed 2 Private MD: ED Physician Forrest Gonzales HPI: 02/06 18:50 This 73 yrs old Male presents to ER via EMS with complaints of Shortness Of kdr Breath, Bloody Stools. 18:50 The patient has shortness of breath at rest. Onset: The symptoms/episode began/occurred kdr gradually, this morning. Duration: The symptoms are continuous, and are steadily getting worse. Historical: - Allergies: 12:58 NKDA; sg - Home Meds: 15:00 albuterol sulfate 2.5 mg /3 mL (0.083 %) Inhl nebu 3 mL Q4H prn [Active]; apixaban 5 mg tw2 Oral 1 tab 2 times per day [Active]; aspirin 81 mg Oral TbEC 1 tab once daily [Active]; atorvastatin 80 mg Oral tab 0.5 tab once daily [Active]; budesonide 3 mg Oral CECX 3 caps once daily [Active]; budesonide-formoterol inhalation 2 puffs 2 times per day [Active]; docusate sodium 100 mg Oral cap 1 cap 2 times per day [Active]; ferrous gluconate 324 mg (36 mg iron) Oral tab twice a day [Active]; furosemide 40 mg Oral tab 3 tabs in am and 2 tabs in pm [Active]; insulin aspart subcutaneous 35 unit three times a day [Active]; finasteride 5 mg Oral tab 1 tab once daily [Active]; gabapentin 100 mg Oral cap 1 caps 3 times per day [Active]; losartan 100 mg Oral tab 1 tab once daily [Active]; magnesium oxide 420 mg Oral tab daily [Active]; pantoprazole 40 mg Oral TbEC 1 tab once daily [Active]; sotalol 120 mg Oral tab 1 tab 2 times per day [Active]; potassium chloride 10 mEq Oral cpER 2 caps once daily [Active]; metoprolol tartrate 50 mg Oral tab 1 tab once daily [Active]; ipratropium bromide 0.02 % inhalation soln 2.5 mL every 6 hours [Active]; insulin detemir subcutaneous 70 units in am and 45 units in pm [Active]; - PMHx: 15:00 Atrial Fib; CHF; prostate problems; chronic wounds; COPD; Crohn's; Depression; tw2 Hypertension; Diabetes - IDDM; Hyperlipidemia; - Immunization history:: Adult Immunizations. - Social history:: Smoking status: . - Ebola Screening: : Patient denies travel to an Ebola-affected area in the 21 days before illness onset. ROS: 19:39 Constitutional: Negative for fever the patient is a poor historian - generally relates kdr increasing SOB since this morning per EMS. "I just can't breath" Eyes: Negative for injury, pain, redness, and discharge. 19:39 Respiratory: Positive for dyspnea on exertion, shortness of breath, Negative for cough. 19:39 Skin: Positive for diaphoresis. Exam: 19:39 Constitutional: This is a well developed, well nourished patient who is somonolent but kdr in mild to moderate distress. Head/Face: Normocephalic, atraumatic. Eyes: Pupils equal round and reactive to light, extra-ocular motions intact. Lids and lashes normal. Conjunctiva and sclera are non-icteric and not injected. Cornea within normal limits. Periorbital areas with no swelling, redness, or edema. Neck: Trachea midline, no thyromegaly or masses palpated, and no cervical lymphadenopathy. Supple, full range of motion without nuchal rigidity, or vertebral point tenderness. No Meningismus. Chest/axilla: Normal chest wall appearance and motion. Nontender with no deformity. No lesions are appreciated. Cardiovascular: Regular rate and rhythm with a normal S1 and S2. No gallops, murmurs, or rubs. Normal PMI, no JVD. No pulse deficits. Abdomen/GI: Soft, non-tender, with normal bowel sounds. No distension or tympany. No guarding or rebound. No evidence of tenderness throughout. Back: No spinal tenderness. No costovertebral tenderness. Full range of motion. 19:39 Respiratory: mild respiratory distress is noted, Respirations: labored breathing, that is mild, Breath sounds: decreased breath sounds, that are mild, are scattered. Vital Signs: 12:18 Resp 30; Temp 95.8(TE); Pulse Ox 76% on R/A; tw2 12:26 BP 111 / 56; Pulse 77; Pulse Ox 83% on BiPAP, 14/7 rate 20 at 100%,; tw2 12:52 BP 76 / 62; Pulse 71; Resp 20; Pulse Ox 100% on BiPAP; tw2 13:03 BP 109 / 72; Pulse 66; Resp 32; Pulse Ox 74% on BVM; tw2 13:06 BP 84 / 61; Pulse 66; Resp 15; Pulse Ox 100% on ETT vent; tw2 13:15 BP 98 / 64; Pulse 67; Resp 16; Pulse Ox 100% on ETT vent; tw2 13:30 BP 169 / 69; Pulse 65; Resp 16; Pulse Ox 100% ; sv 14:20 Temp 94.2(C); sv 14:25 BP 123 / 62; Pulse 64; Resp 16; Pulse Ox 100% on ETT vent; tw2 14:50 BP 109 / 64; Pulse 61; Resp 16; Temp 94.8(C); Pulse Ox 100% on 50% FiO2 ETT vent; sv 15:20 BP 94 / 60; Pulse 58; Resp 16; Temp 95.1(C); Pulse Ox 100% on ETT vent; tw2 15:35 BP 94 / 61; Pulse 56; Resp 16; Pulse Ox 100% on ETT vent; tw2 15:55 BP 99 / 58; Pulse 57; Resp 16; Pulse Ox 100% on ETT vent; tw2 16:15 BP 95 / 54; Pulse 59; Resp 17; Pulse Ox 100% on ETT vent; tw2 16:30 BP 95 / 54; Pulse 62; Resp 19; Pulse Ox 100% on ETT vent; tw2 16:36 Temp 96.2(C); sv 17:00 BP 100 / 60; Pulse 65; Resp 16; Pulse Ox 100% on ETT vent; sv 17:46 Pulse Ox 100% on Venturi mask; tw2 17:46 BP 135 / 63; Pulse 78; Resp 25; Temp 97.6(C); Pulse Ox 99% on 50% Venturi mask; sv 18:28 BP 104 / 61; Pulse 80; Resp 13; Pulse Ox 100% on 50% Venturi mask; sv 19:00 BP 78 / 54; Pulse 74; Resp 16 S; Temp 98.6(C); Pulse Ox 96% on 15% Venturi mask; bb 19:25 BP 68 / 52; Resp 8 S; Temp 98.6(C); bb 12:18 dr. gonzales at bedside, bipap ordered, pt placed on venturi mask, pt skin remains cold, tw2 unable to maintain steady pulse ox monitoring, provider aware 12:26 unable to obtain accurate o2 sat at this time, pts hands are cold, pt has b/l BKA, pts tw2 ears are cold and bipap mask is on 12:52 provider notified of low BP, per [place],RT pts o2 sat via abg was 100% tw2 13:03 not a good o2 waveform or reading at this time. RT at bedside tw2 14:20 Bare hugger placed on pt. sv 14:50 AC, rate-16, TV-500, PEEP-5 sv 17:46 50% at 15 tw2 Ventilator: 14:53 Fi02: 50%; Rate: 16min; T.V.: 500ml; Peep: 5cm; Mode: CMV; sv Procedures: 19:39 Intubation: Ventilated with 100% NRB prior to procedure. Intubated orally using # 3 kdr Mansoor blade with 7.5 mm ETT. Successful on second attempt. Ventilated with Ambu bag. ventilator. Tube secured with ETT nicole at center of mouth measured 23 cm at teeth. Placement verified by CO2 detector with (+) color change, auscultating bilateral breath sounds, O2 saturation after procedure was 100 %. Patient tolerated well. Central Line: the site was prepped with Betadine, in sterile fashion, a triple lumen catheter was inserted, in the right femoral vein, in the left femoral vein, in 5 attempts. placement was verified, by blood return, Was able to get blood return but unable to get wire to pass on either side The patient tolerated well. MDM: 18:49 Patient medically screened. kdr 19:39 Data reviewed: vital signs, nurses notes. ED course: The patient was clearly unstable kdr and diaphoretic on arrival. A trial with BiPaP did not improved the patient's condition sufficiently. The patient was electively intubated without problem nor any anoxia. VS immediately stabilized. The family was not initially all present and they were questioning whether they wanted the patient to be subjected to another, now fourth GI intervention. I explained to them that if they were no longer going to want GI then the patient could be kept here if ICU beds were available. It took some time for all of the family to gather. Once here and after considerable discussion by the family they were still not able to decide whether they wanted to be transferred or not. I spoke with Dr. Herrera who indicated that he would not accept a GI bleed to his service without GI available. In the meantime, the patient had awakened and was able to respond to questions. He indicated that he no longer wanted to be intubated and so respiratory was called and they extubated the patient without problem. The patient remained stable in the ED until take to CT for the abdominal scan. Since the family was now willing to entertain further GI consultation, a CT abdomen/pelvis was ordered as we were awaiting callback from [facility]. At the time of the patient returning from CT and prior to speaking with the hospitalist from [facility], the patient abruptly deteriorated and lost all VS. As the family had insisted all day that the one thing the patient did not want was CPR, I affirmed with the two daughter present that that was still the case. After making a phone call, they affirmed that no further intervention/CPR was to be done. At 19:27, the patient was pronounced with family present. ED course: Dr. Herrera was informed of the patient's acute demise.. 02/06 12:18 Order name: Basic Metabolic Panel; Complete Time: : [facility] 02/06 12:18 Order name: CBC with Diff; Complete Time: : [facility] 02/06 12:18 Order name: LFT's; Complete Time: : [facility] 02/06 12:18 Order name: Magnesium; Complete Time: : [facility] 02/06 12:18 Order name: NT PRO-BNP; Complete Time: 16: [facility] 02/06 12:18 Order name: PT-INR; Complete Time: : [facility] 02/06 12:18 Order name: Troponin (emerg Dept Use Only); Complete Time: 16: [facility] 02/06 12:24 Order name: T\\T\\S tw2 02/06 13:19 Order name: Packed RBC Leukored [facility] 02/06 13:28 Order name: ABG ms 02/06 13:48 Order name: ABG Arterial Blood Gas [facility] 02/06 16:33 Order name: Chem 7; Complete Time: 18:48 [facility] 02/06 16:33 Order name: CBC with Diff; Complete Time: 18:52 kdr 02/06 12:18 Order name: XRAY Chest (1 view); Complete Time: 16:32 kdr 02/06 12:18 Order name: BIPAP kdr 02/06 18:12 Order name: Manual Differential; Complete Time: 18:52 EDMS 02/06 18:51 Order name: CT Abd/Pelvis - Without Contrast; Complete Time: 19:33 kdr 02/06 12:18 Order name: EKG; Complete Time: 12:19 kdr 02/06 12:18 Order name: Cardiac monitoring; Complete Time: 12:22 kdr 02/06 12:18 Order name: EKG - Nurse/Tech; Complete Time: 12:22 kdr 02/06 12:18 Order name: IV Saline Lock; Complete Time: 12:24 kdr 02/06 12:18 Order name: Labs collected and sent; Complete Time: 12:53 kdr 02/06 12:18 Order name: O2 Per Protocol; Complete Time: 12:53 kdr 02/06 12:18 Order name: O2 Sat Monitoring; Complete Time: 12:24 kdr 02/06 13:48 Order name: Intubation Setup; Complete Time: 13:48 tw2 02/06 14:33 Order name: Restraint:Non-Violent; Complete Time: 14:46 tw2 Administered Medications: 13:01 Drug: Etomidate 20 mg Route: IVP; Site: right antecubital; tw2 13:01 Drug: Succinylcholine 100 mg Route: IVP; Site: right antecubital; tw2 13:27 Drug: VecuroNIUM 10 mg Route: IVP; Site: right antecubital; tw2 14:15 Drug: Lasix 40 mg Route: IVP; Site: left antecubital; tw2 19:08 Follow up: Response: No adverse reaction tw2 14:17 Drug: ProTONIX 8 mg/hr Route: IV; Rate: 25 ml/hr; Site: left antecubital; tw2 14:46 Drug: Lasix 40 mg Route: IVP; Site: left antecubital; sv 19:07 Follow up: Response: No adverse reaction tw2 21:00 CANCELLED (Inappropriate at this time): D50W 50 ml IVP once; (1 amp) bb 21:00 CANCELLED (Inappropriate at this time): LevaQUIN 500 mg 100 ml IVPB once over 60 mins bb 21:00 CANCELLED (Inappropriate at this time): Flagyl 500 mg 100 ml IVPB at 200 ml/hr once bb over 30 mins 21:01 CANCELLED (Inappropriate at this time): Albuterol 2.5 mg Inhalation once; Repeat for a bb total of three doses 21:01 CANCELLED (Inappropriate at this time): Calcium Gluconate 1 grams IVPB once over 60 bb mins; (mix in NS 100 mL) 21:01 CANCELLED (Inappropriate at this time): Sodium Bicarbonate 1 amp IVP once; (50 mL); bb equals 50 mEq 21:01 CANCELLED (Inappropriate at this time): Insulin Regular Human 10 units IVP once bb Disposition: 19:34 . kdr 02/07 07:51 Critical Care:. kdr Disposition: 02/06/19 18:49 Transfer ordered to [facility]. Diagnosis are Anemia, unspecified, Shortness of breath, Weakness, Hyperkalemia. - Reason for transfer: Higher level of care. - Accepting physician is [facility]. - Condition is Serious. - Problem is an acute exacerbation. - Symptoms have improved. Critical care time excluding procedures: 07:51 Critical care time: Bedside Care: 60 minutes, Consultation: 20 minutes, Family kdr Intervention: 60 minutes. Total time: 140 minutes Signatures: Dispatcher [employer] EDSC Merly Billy RN Raphael May RN RN sg Rittger, Kevin, MD MD kdr Ballard, Brenda, RN RN bb Wise, Tara RN RN tw2 Corrections: (The following items were deleted from the chart) 02/06 18:12 18:07 CBC Smear Scan ordered. EDSC EDSC 21: 18:47 D50W 50 ml IVP once; (1 amp) ordered. kdr bb 21:00 18:48 LevaQUIN 500 mg 100 ml IVPB once over 60 mins ordered. kdr bb 21: 18:48 Flagyl 500 mg 100 ml IVPB at 200 ml/hr once over 30 mins ordered. kdr bb 21: 18:47 Albuterol 2.5 mg Inhalation once; Repeat for a total of three doses ordered. kdr bb 21: 18:47 Calcium Gluconate 1 grams IVPB once over 60 mins; (mix in NS 100 mL) ordered. kdr bb 21: 18:47 Sodium Bicarbonate 1 amp IVP once; (50 mL); equals 50 mEq ordered. kdr 21: 18:47 Insulin Regular Human 10 units IVP once ordered. kdr 22:23 18:49 02/06/2019 18:49 Transfer ordered to [facility]. Diagnosis is bb Anemia, unspecified; Shortness of breath; Weakness; Hyperkalemia. Reason for transfer: Higher level of care. Accepting physician is [facility]. Condition is Serious. Problem is an acute exacerbation. Symptoms have improved. kdr
[2019-02-06] MEDS ORDERED: Calcium Chloride 13.6 mEq (=1 gm)/100 mL NS IV ONE ×2 (19:00)
[2019-02-06] MEDS ORDERED: ALBUTEROL 2.5 MG/3 ML NEB SOL ONE (19:11)
[2019-02-06] MEDS ORDERED: SODIUM BICARB 50 MEQ/50ML VIAL ONE (19:12)
[2019-02-06] MEDS ORDERED: INSULIN -REGULAR HUMAN 50 UNIT/0.5 ML ML ONE (19:12)
[2019-02-06] MEDS ORDERED: Levofloxacin500mg IV 0 MG/0 ML BAG IV ONE (19:13)
[2019-02-06] MEDS ORDERED: METRONIDAZOLE 500mg IVPB 0 MG/0 ML BAG IV ONE (19:13)
[2019-02-06] MEDS ORDERED: D50W 25 GM/50 ML SYRINGE IV ONE (19:21)
--- NOTE | 2019-02-06 19:27 | RAD REPORT ---
EXAM DESCRIPTION: CT - Abdomen Pelvis Wo Contrast - 02/06/2019 7:14 pm CLINICAL HISTORY: Abdominal pain hematochezia COMPARISON: None TECHNIQUE: Computed axial tomography of the abdomen and pelvis was obtained. IV and oral contrast we re not requested. All CT scans are performed using dose optimization technique as appropriate and may include automated exposure control or mA/KV adjustment according to patient size. FINDINGS: The evaluation of solid organs, vessels and bowel is limited secondary to the lack of con trast administration. Atrophic pancreas The liver, spleen, pancreas, adrenals and kidneys appear grossly normal. Small left renal cysts The rectum and sigmoid colon are distended with stool. The rectum measures 9 centimeters. There is no evidence diverticulitis. The remainder the bowel caliber is normal A Eisenberg catheter within the bladder Appendicolith within a normal size appendix Spondylolysis L5 IMPRESSION: Fecal impaction with rectal distention
[2019-02-06 22:52] VITALS: TEMP 98.6; O2SAT 96
[2019-02-06 22:53] VITALS: BP 68/52
== END 2019-02-06 22:23 | disposition short-term general hospital (02) ==
LOC: ER 12:14
PROC: 0BH17EZ Insertion of Endotracheal Airway into Trachea, Via Natural or Artificial Opening (ICD-10-PCS; principal; 2019-02-06)
PROC: 5A1935Z Respiratory Ventilation, Less than 24 Consecutive Hours (ICD-10-PCS; 2019-02-06)
PROC: 06HM33Z Insertion of Infusion Device into Right Femoral Vein, Percutaneous Approach (ICD-10-PCS; 2019-02-06)
PROC: 30233N1 Transfusion of Nonautologous Red Blood Cells into Peripheral Vein, Percutaneous Approach (ICD-10-PCS; 2019-02-06)
DX: D64.9 Anemia, unspecified (principal); R53.1 Weakness; E87.5 Hyperkalemia; E11.9 Type 2 diabetes mellitus without complications; I48.91 Unspecified atrial fibrillation; I50.9 Heart failure, unspecified; F32.9 Major depressive disorder, single episode, unspecified; Z79.4 Long term (current) use of insulin; Z79.82 Long term (current) use of aspirin
CPT/HCPCS: 31500; 94002 ×3; 36556; 93005; 85025 ×2; 80048 ×2; 36415; 86900; 83735; 86850; 85610; 86901; 80076; 84484; 83880; 74176; 71045; 82805; 36430; J0330; J1940 ×2; C9113 ×2; P9016 ×2; J7030; J2250